=== PATIENT | female | born 1950 | race Caucasian/White ===

== ENCOUNTER 2019-01-25 19:27 | Inpatient (IN) | payer MEDICARE, OTHER, SELFPAY ==
[2019-01-25] VITALS (13 sets, daily range): BP systolic 125–162; BP diastolic 63–117; PULSE 82–117; RESP 16–18; TEMP 36.7–36.8; O2SAT 96–98; BMI 41.5; BMI 41.6; BMI 41.7
--- NOTE | 2019-01-25 19:42 | EKG12_ITS ---
Test Reason : Blood Pressure : / mmHG Vent. Rate : 119 BPM Atrial Rate : 111 BPM P-R Int : 000 ms QRS Dur : 094 ms QT Int : 298 ms P-R-T Axes : 000 029 039 degrees QTc Int : 419 ms Atrial fibrillation with rapid ventricular response Low voltage QRS Nonspecific ST and T wave abnormality Abnormal ECG Confirmed by ABHAY MARTINEZ ([id number]), assistant film editor RUTHY WEIR ([id number]) on 01/28/2019 1:12:33 PM Referred By: ELIZABETH Confirmed By:ABHAY MARTINEZ
--- NOTE | 2019-01-25 19:42 | RAD_ITS ---
STUDY: X-RAY CHEST REASON FOR EXAM: Female, 68 years old. Chest pain, A. fib TECHNIQUE: Single frontal view COMPARISON: July 27, 2016 FINDINGS: The lungs are clear and expanded. There is no demonstrated pleural abnormality. Mildly prominent cardiac shadow. Normal mediastinum and bing. Normal visualized pulmonary arteries. Normal visualized aortic arch and descending thoracic aorta. Degenerative changes of the thoracic spine. Degenerative changes of the shoulders. There is no demonstrated abnormality of the visualized soft tissue structures of the upper abdomen. RAD/Chest 1 View (Portable) IMPRESSION: Mildly prominent cardiac shadow. Electronically Signed: Jeff Raygoza DO at 20:28 EST Tel [phone], Service support ,
--- NOTE | 2019-01-25 19:42 | ED.RN ---
RN CALLED FOR EKG, PULLED OLD EKGS FOR
[2019-01-25] MEDS: Aspirin 81 MG TAB.CHEW 324 MG PO (19:57)
[2019-01-25] MEDS: dilTIAZem 25 MG/5 ML Vial 10 MG IV BOLUS (20:05)
[2019-01-25 20:12] LABS: Absolute Lymphocyte Count 2.53 X10^3/ul (0.83-4.51); Absolute Neutrophil Count 4.7 X10^3/uL (2.0-7.7); Basophil# 0.05 X10^3/uL; Basophil% 0.6 % (0-1); Eosinophil# 0.13 X10^3/uL; Eosinophils% 1.6 % (0-5); Hematocrit 40.2 % (37-47); Lymphocyte # 2.53 X10^3/ul (4.0); Lymphocyte % 32.1 % (19-41); Mean Corp Hgb Conc 32.3 g/gl (32-36); Mean Corpuscular Hgb 29.8 pg (27.0-32.0); Mean Corpuscular Volume 92.2 fL (81-99); Mean Platelet Vol. 10.1 fl (6.2-12.0); Monocyte# 0.46 X10^3/uL; Monocyte% 5.8 % (0-10); Neutrophil # 4.69 X10^3/uL (2.7-7.7); Neutrophil % 59.6 % (47-70); POSITIVE COUNT NO; POSITIVE DIFFERENTIAL NO; POSITIVE MORPHOLOGY NO; Platelet Count 272 K/mm3 (150-450); RBC Distribution Width CV 13.9 % (11.6-14.6); RBC Distribution Width SD 46.5 fl (35.1-43.9); Red Blood Count 4.36 M/mm3 (4.2-5.4); White Blood Count 7.9 K/mm3 (4.4-11.0)
[2019-01-25 20:23] LABS: Anion Gap 9 (5-15); BUN 18 mg/dL (7-18); BUN/Creat Ratio 25.8 RATIO (10-20); Calcium,Total 9.1 mg/dL (8.5-10.1); Chloride 105 mmol/L (98-107); EST Glomerular Filtration Rate 88 mL/min (>60); Est Glom Filt Rate - Afr Amer 107 mL/min (>60); Estimated Creatinine Clearance 51.63 ml/min; Glucose 133 mg/dL (74-106); Potassium 3.4 mmol/L (3.5-5.1); Sodium Level 140 mmol/L (136-145)
--- NOTE | 2019-01-25 20:40 | US_ITS ---
STUDY: VENOUS DOPPLER ULTRASOUND - RIGHT LOWER EXTREMITY REASON FOR EXAM: Female, 68 years old. Swelling TECHNIQUE: Ultrasound evaluation of the deep vein system to include montes-scale imaging and compression was performed. Montes-scale imaging and Doppler sonographic evaluation, including duplex spectral analysis and qualitative color flow sonography, was performed. COMPARISON: None. FINDINGS: Common Femoral Vein: Normal compression, spontaneity and augmentation. Normal color Doppler. Common Femoral Vein/Greater Saphenous Junction: Normal compression, spontaneity and augmentation. Normal color Doppler. Deep Femoral Vein: Normal compression, spontaneity and augmentation. Normal color Doppler. Femoral Proximal: Normal compression, spontaneity and augmentation. Normal color Doppler. Femoral Middle: Normal compression, spontaneity and augmentation. Normal color Doppler. Femoral Distal: Normal compression, spontaneity and augmentation. Normal color Doppler. Popliteal Vein: Normal compression, spontaneity and augmentation. Normal color Doppler. Posterior Tibial Vein: Normal compression, spontaneity and augmentation. Normal color Doppler. Peroneal Vein: Normal compression, spontaneity and augmentation. Normal color Doppler. US/Venous Duplex Imag/Limited/Uni IMPRESSION: Normal venous Doppler ultrasound of the lower extremity. Electronically Signed: Cholo Henderson MD at 21:19 EST , Service support ,
--- NOTE | 2019-01-25 20:43 | ED.DCSUM_ITS ---
- ER Visit Summary Date of Service: 01/25/19 Chief Complaint: Palpitations History of Present Illness: The patient is a 68 F presenting with palpitations. Patient states that this started earlier today. She has a history of A. fib. She has had ablation x2. Her last A. fib was approximately 2 years ago. She is on Xarelto. She is no longer on flecainide. She denies chest pain or shortness of breath. Physical Examination: Vitals are stable. Heart rate 106. Patient is afebrile. Alert no acute distress. HEENT exam is unremarkable. Neck is supple. Lungs are clear and equal bilaterally. Heart is irregularly irregular Abdomen is soft nontender nondistended. Extremities mild right ankle tenderness with normal distal pulse Skin is warm and dry. No focal neurologic deficit. Remainder of exam is unremarkable. Emergency Department Course and Treatment: CBC, chemistries unremarkable other than potassium 3.4, glucose 133. Troponin is negative. EKG A. fib rate of 119. Chest x-ray shows mildly prominent cardiac shadow. Right lower extremity ultrasound shows no DVT. Her heart rate has been in the 120s. She was given aspirin, Cardizem IV. Heart rate is now improved, high 90s. She declines ED cardioversion. Discussed with the hospitalist for observation. Disposition: Observation Impression: A. fib with RVR This note was generated with [employer] dictation software. It may contain incorrect words, spelling, and punctuation that were not noted in review of the chart prior to signing ED Disposition - Plan for ED Patient: Referrals: Junior Ashley III, MD [Primary Care Provider] -
--- NOTE | 2019-01-25 22:11 | HP.PCM_ITS ---
History of Present Illness Date of Admission: 01/25/19 Chief Complaint: palpitations The patient is a 68 year old F with a PMH of Afib s/p ablation x 2 and hypertension. She was admitted with a complaint of palpitations for the last few days. Patient had no associated dizziness or lightheadedness, chest pain, abdominal pain, diarrhea or vomiting. She used to be on flecainide, but says this was discontinued in 10/10. She usually follows up with dr Pina in [facility] main campus. Review of systems was otherwise negative. EKG in the ED showed Afib with HR in 120s. and labs were unremarkable. Initial troponin was negative. She is being admitted to be managed for Afib with RVr. She received cardizem bolus in the ED. She refuses to be cardioverted as she had a hematoma in her throat the last time she was cardioverted. [] Past Medical History Past Medical History (Chronic Problems): Chronic Problems (Last Reviewed 09/02/18 @ 11:46 by Akhil Oswald MD) History of cardiac radiofrequency ablation (Chronic) June 2017 @ [facility] and Jul 2018 Chronic atrial fibrillation (Chronic) Obstructive sleep apnea (Chronic) Hyperparathyroidism, unspecified (Chronic) Paroxysmal atrial fibrillation (Chronic) Medical History: Medical History (Last Reviewed 09/02/18 @ 11:46 by Akhil Oswald MD) Chronic atrial fibrillation (Chronic) I48.2 Obstructive sleep apnea (Chronic) G47.33 Hyperparathyroidism, unspecified (Chronic) E21.3 Body mass index (BMI) 35 or more Pain in left lower leg M79.662 Shortness of breath R06.02 Allergies Penicillins Allergy (Verified 09/02/18 11:25) Hives Sulfa (Sulfonamide Antibiotics) Allergy (Verified 09/02/18 11:25) Hives Home Medications: Ambulatory Orders Medication Instructions Recorded Allopurinol [Zyloprim] 300 mg PO BIDCM 07/27/16 Levothyroxine [Synthroid] 25 mcg PO DAILY 07/27/16 rivaroxaban 20 mg tablet 20 mg PO DAILY #90 tab 01/18/18 hydrochlorothiazide 25 mg tablet 25 mg PO QDAY tab 02/01/18 cholecalciferol (vitamin D3) 2,000 2,000 unit PO QDAY cap 02/02/18 unit capsule metoprolol tartrate 25 mg tablet 12.5 mg PO BID #180 tab 09/02/18 Surgical History: Surgical History (Last Reviewed 09/02/18 @ 11:46 by Akhil Oswald MD) History of cardiac radiofrequency ablation (Chronic) Z98.890 June 2017 @ [facility] and Jul 2018 Surgical History: hysterectomy, total hip arthroplasty, total knee arthroplasty, - - Cornea surgery Psychiatric History: No pertinent psych hx 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 Smoking Status: Never smoker - *Family History Maternal Family History: Family History (Last Reviewed 09/02/18 @ 11:46 by Akhil Oswald MD) Father CVA (cerebral vascular accident) Atrial fibrillation History Items: COPD Paternal Family History: Family History (Last Reviewed 09/02/18 @ 11:46 by Akhil Oswald MD) Father CVA (cerebral vascular accident) Atrial fibrillation History Items: - - Atrial fibrillation Review of Systems Constitutional: Denies: Chills, Fever, Malaise, Weakness, Weight Change, Fatigue Eyes: Denies: Blurred vision HEENT: Denies: Head Aches, Sinus Congestion, Sinus Drainage Cardiovascular: Reports: Palpitations. Denies: Chest Pain, Chest Tightness, Edema, Heaviness, Light Headedness, Orthopnea Respiratory: Denies: Cough, Shortness of Breath, Shortness of breath at rest, Sputum production Gastrointestinal: Denies: Abdominal Pain, Nausea, Vomiting Genitourinary: Denies: Dysuria Musculoskeletal: Denies: Joint Pain, Joint Tenderness Skin: Denies: Rash, Wounds Neurological: Denies: Numbness, Tingling, Focal weakness Psychiatric: Denies: Anxiety, Depression, Homicidal Ideations, Suicidal Ideations Hematologic/ Lymphatic: Denies: Easy Bruising, Easy Bleeding VTE Information - Inpt Only VTE Present on Admission: No VTE Pharm Prophylaxis ordered?: Yes - Physical Exam General: Alert, Oriented x3, Cooperative, No apparent distress HEENT: Atraumatic, PERRLA, EOMI, Normocephalic Oral: Moist Mucosa Neck: Supple, No JVD, Negative Carotid Bruits Lungs: Clear to auscultation, Normal air movement, No rhonchi, No wheeze, No rales Cardiovascular: Irregular Rate - Afib, Tachycardic Abdomen: Bowel Sounds Present, Soft, Non Tender, Non-Distended, No Hepato- splenomegaly, Passing Flatus Extremities: No clubbing, No cyanosis, No edema, Capillary Refill Less than 3 Seconds Skin: No rashes, No breakdown Musculoskeletal: No Tenderness to Palpation of Joints or Extremities Lymphatic: No Cervical, Supraclavicular, or Inguinal Adenopathy Neurological: Cranial nerves II-XII grossly intact, Neuro grossly intact, Motor Exam 5/5 strength throughout Psych/Mental Status: Normal Affect, Appropriate, Alert and oriented to time, place, person, mood and affect Vital Signs Temp Pulse Resp BP Pulse Ox 98.0 F 101 H 18 125/63 H 96 01/25/19 19:27 01/25/19 22:00 01/25/19 22:00 01/25/19 22:00 01/25/19 22:00 Oxygen Delivery Method Room Air Weight: 265 lb Body Mass Index (BMI) 41.5 Laboratory Tests Past 24 Hrs 01/25/19 01/25/19 20:00 20:00 WBC 7.9 RBC 4.36 Hgb 13.0 Hct 40.2 MCV 92.2 MCH 29.8 MCHC 32.3 RDW 13.9 RDW Differential 46.5 H Plt Count 272 MPV 10.1 Immature Gran % (Auto) 0.300 Neut % (Auto) 59.6 Lymph % (Auto) 32.1 [place] % (Auto) 5.8 Eos % (Auto) 1.6 Baso % (Auto) 0.6 Absolute Neuts (auto) 4.7 Absolute Lymphs (auto) 2.53 Total Counted Not Reportable Sodium 140 Potassium 3.4 L Chloride 105 Carbon Dioxide 26.0 Anion Gap 9 BUN 18 Creatinine 0.70 Estim Creat Clear Calc 51.63 Est GFR (MDRD) Af Amer 107 Est GFR (MDRD) Non-Af 88 BUN/Creatinine Ratio 25.8 H Glucose 133 H Calcium 9.1 Troponin I < 0.015 Diagnostic Data Chest X-Ray 01/25/19 19:42 IMPRESSION: Mildly prominent cardiac shadow. Electronically Signed: Jeff Raygoza DO at 20:28 EST Tel [phone], Service support , Venous Duplex 01/25/19 20:40 IMPRESSION: Normal venous Doppler ultrasound of the lower extremity. Electronically Signed: Cholo Henderson MD at 21:19 EST , Service support , Assessment/Plan All Active Problems (Last Reviewed 09/02/18 @ 11:46 by Akhil Oswald MD) Fever (Acute) 68-year-old female admitted with a complaint of palpitations. 1. A. fib with RVR * This was ablation x2. Has not had an attack of A. fib with RVR for the past 2 years. * Received Cardizem in ED. Does not require drip as heart rate is better controlled now. * On metoprolol 12.5 mg twice daily. Will give 25 mg twice daily and monitor heart rate. We will replace potassium is 3.4 and check magnesium to make sure it is above 2. * On xarelto * 2D echo. Cycle troponins. * 2. Hypertension: Fairly controlled. On metoprolol and hydrochlorothiazide. 3. Hypokalemia: Potassium is 3.4. Will replace and monitor. 4. Hypothyroidism: On Synthroid 25 mg daily. Will check TSH. Prophylaxis: On Xarelto. Code Visit OBSV E&M: 32311 Initial observation care L3
[2019-01-25] MEDS: Metoprolol Tartrate 5 MG/5 ML Vial IV ×3 (23:25→23:37)
[2019-01-25] MEDS: Metoprolol Tartrate 25 MG Tablet 12.5 MG PO (23:29)
[2019-01-26] VITALS (12 sets, daily range): BP systolic 109–140; BP diastolic 52–92; PULSE 84–124; RESP 14–18; TEMP 36.6–36.7; O2SAT 95–98
[2019-01-26 03:02] LABS: Anion Gap 8 (5-15); BUN 20 mg/dL (7-18); BUN/Creat Ratio 35.4 RATIO (10-20); Chloride 106 mmol/L (98-107); Creatinine, Serum 0.56 mg/dL (0.55-1.02); EST Glomerular Filtration Rate 113 mL/min (>60); Est Glom Filt Rate - Afr Amer 136 mL/min (>60); Estimated Creatinine Clearance 51.63 ml/min; Glucose 110 mg/dL (74-106); Magnesium 1.7 mg/dL (1.6-2.6); Potassium 3.5 mmol/L (3.5-5.1); Sodium Level 139 mmol/L (136-145)
[2019-01-26 03:18] LABS: Absolute Lymphocyte Count 2.77 X10^3/ul (0.83-4.51); Absolute Neutrophil Count 4.7 X10^3/uL (2.0-7.7); Basophil# 0.04 X10^3/uL; Basophil% 0.5 % (0-1); Eosinophil# 0.18 X10^3/uL; Eosinophils% 2.2 % (0-5); Hematocrit 37.8 % (37-47); Lymphocyte # 2.77 X10^3/ul (4.0); Lymphocyte % 33.5 % (19-41); Mean Corp Hgb Conc 31.7 g/gl (32-36); Mean Corpuscular Hgb 29.6 pg (27.0-32.0); Mean Corpuscular Volume 93.1 fL (81-99); Mean Platelet Vol. 10.6 fl (6.2-12.0); Monocyte# 0.58 X10^3/uL; Neutrophil # 4.67 X10^3/uL (2.7-7.7); Neutrophil % 56.4 % (47-70); Platelet Count 249 K/mm3 (150-450); RBC Distribution Width CV 13.8 % (11.6-14.6); RBC Distribution Width SD 45.5 fl (35.1-43.9); Red Blood Count 4.06 M/mm3 (4.2-5.4); White Blood Count 8.3 K/mm3 (4.4-11.0)
[2019-01-26 03:21] LABS: POSITIVE COUNT NO; POSITIVE DIFFERENTIAL NO; POSITIVE MORPHOLOGY NO
--- NOTE | 2019-01-26 05:55 | ECHOD_ITS ---
Reason For Study: Afib, Aflutter Procedure This was a 2D Doppler, Color Flow transthoracic echocardiogram. Exam performed portable in patient room. Left Ventricle Moderate concentric left ventricular hypertrophy. The estimated ejection fraction is 60 %. Unable to assess diastolic dysfunction due to arrhythmia. No regional wall motion abnormalities noted. Right Ventricle Normal size and thickness. Normal systolic function. Atria Normal left atrium. Normal right atrium. Normal atrial septum. Mitral Valve Mild diffuse mitral valve thickening. Moderate mitral annular calcification extending into the posterior leaflet. Tricuspid Valve Normal tricuspid valve. Trivial tricuspid valve insufficiency. Right ventricular systolic pressure estimated to be 36 mmHg. Aortic Valve Trisinus/trileaflet aortic valve. Mild diffuse aortic valve thickening. Mild focal aortic valve thickening. There is no aortic stenosis. Pulmonic Valve Normal pulmonic valve. Great Vessels Normal aortic root. Normal arch. Normal inferior vena cava. Inferior vena cava collapse with sniff. Pericardium/Pleural No pericardial effusion. MMode/2D Measurements & Calculations LVIDd: 3.6 cm IVSd: 1.7 cm Ao root diam: 3.6 cm LVIDs: 2.5 cm LVPWd: 1.6 cm RVDd: 3.6 cm FS: 28.7 % LAV(MOD-bp): 46.9 ml LVAd ap4: 23.6 cm2 SV(MOD-sp4): 35.7 ml LAV(MOD-bp) Indexed: 20.5 ml/m2 EDV(MOD-sp4): 62.5 ml LAV(MOD-sp2): 51.6 ml EDV(sp4-el): 63.5 ml LAV(MOD-sp4): 42.4 ml LVAs ap4: 13.9 cm2 ESV(MOD-sp4): 26.9 ml ESV(sp4-el): 25.9 ml EF(MOD-sp4): 57.1 % EF(sp4-el): 59.2 % SV(sp4-el): 37.6 ml LA A4 area: 16.5 cm2 LA dimension(2D): 3.8 cm RA A4 area: 16.5 cm2 Doppler Measurements & Calculations MV E max sandra: 103.5 cm/sec Ao V2 max: 138.2 cm/sec LV V1 max: 116.0 cm/sec Ao max P.9 mmHg LV V1 max P.5 mmHg Ao V2 mean: 104.0 cm/sec Ao mean P.9 mmHg Ao V2 VTI: 23.4 cm PA V2 max: 113.9 cm/sec TR max sandra: 227.7 cm/sec TR max P.7 mmHg Interpretation Summary Moderate concentric left ventricular hypertrophy. The estimated ejection fraction is 60 %. Unable to assess diastolic dysfunction due to arrhythmia. Trivial tricuspid valve insufficiency. Right ventricular systolic pressure estimated to be 36 mmHg. Compared to echo report dated 02/11/2016, LV function has remained the same. Pt appears to be in atrial fibrillation. RVSP has increased from 26 to 36 mm Hg. Ordering Physician: Margaret Napoles Referring Physician: Junior Ashley Performed By: Stephanie Arnold, ANEUDY, RVT
[2019-01-26] MEDS: Levothyroxine 25 MCG TABLET PO (06:34)
[2019-01-26 06:55] LABS: Thyroid Stim Hormone (TSH) 2.57 uIU/mL (0.358-3.74)
[2019-01-26] MEDS: Allopurinol 300 MG Tablet PO ×2 (08:34→16:54)
[2019-01-26] MEDS: hydroCHLOROthiazide 25 MG Tablet PO (08:35)
[2019-01-26] MEDS: Metoprolol Tartrate 25 MG Tablet PO ×2 (08:35→21:01)
--- NOTE | 2019-01-26 08:47 | NURSING ---
pt walked halls with . HR elevated but pt denies chest discomfort and denies SOB.
--- NOTE | 2019-01-26 13:33 | PCM.PN.HOSP ---
Subjective: Denies currently any palpitations, shortness of breath or chest pain. She does feel better Vitals/I&O's: Vital Signs Temp Pulse Resp BP Pulse Ox 97.9 F 101 H 14 140/79 H 98 01/26/19 08:33 01/26/19 11:00 01/26/19 08:33 01/26/19 08:33 01/26/19 08:33 Oxygen Delivery Method Room Air Weight: 266 lb 1.567 oz Body Mass Index (BMI) 41.6 Intake and Output for Last 24 Hours 01/24/19 01/25/19 01/26/19 23:59 23:59 23:59 Intake Total 960 / 960 Balance 960 / 960 General: Alert, Oriented x3, Cooperative, No apparent distress HEENT: Atraumatic, PERRLA, EOMI, Normocephalic Oral: Moist Mucosa Neck: Supple, No JVD, Trachea Midline Lungs: Clear to auscultation, Normal air movement, No rhonchi, No wheeze, No rales Cardiovascular: Regular rate, Normal S1, Normal S2, No murmurs, - - Irregular rhythm Abdomen: Soft, Non Tender, Non-Distended, No Hepato-splenomegaly Extremities: No edema, Capillary Refill Less than 3 Seconds, - - Right Achilles tendinopathy with swelling and a little bit of pain Skin: No rashes, No breakdown Neurological: Neuro grossly intact, Sensory exam intact to light touch and pain Psych/Mental Status: Normal Affect, Appropriate Laboratory Results 01/25/19 20:00: WBC 7.9, RBC 4.36, Hgb 13.0, Hct 40.2, MCV 92.2, MCH 29.8, MCHC 32.3, RDW 13.9, RDW Differential 46.5 H, Plt Count 272, MPV 10.1, Immature Gran % (Auto) 0.300, Neut % (Auto) 59.6, Lymph % (Auto) 32.1, [place] % (Auto) 5.8, Eos % (Auto) 1.6, Baso % (Auto) 0.6, Absolute Neuts (auto) 4.7, Absolute Lymphs (auto) 2.53, Total Counted Not Reportable 01/25/19 20:00: Sodium 140, Potassium 3.4 L, Chloride 105, Carbon Dioxide 26.0, Anion Gap 9, BUN 18, Creatinine 0.70, Estim Creat Clear Calc 51.63, Est GFR (MDRD) Af Amer 107, Est GFR (MDRD) Non-Af 88, BUN/Creatinine Ratio 25.8 H, Glucose 133 H, Calcium 9.1, Troponin I < 0.015 01/25/19 23:26: Troponin I < 0.015 01/26/19 02:33: Magnesium 1.7, Troponin I < 0.015 01/26/19 02:33: WBC 8.3, RBC 4.06 L, Hgb 12.0, Hct 37.8, MCV 93.1, MCH 29.6, MCHC 31.7 L, RDW 13.8, RDW Differential 45.5 H, Plt Count 249, MPV 10.6, Immature Gran % (Auto) 0.400, Neut % (Auto) 56.4, Lymph % (Auto) 33.5, [place] % (Auto) 7.0, Eos % (Auto) 2.2, Baso % (Auto) 0.5, Absolute Neuts (auto) 4.7, Absolute Lymphs (auto) 2.77, Total Counted Not Reportable 01/26/19 02:33: Sodium 139, Potassium 3.5, Chloride 106, Carbon Dioxide 25.0, Anion Gap 8, BUN 20 H, Creatinine 0.56, Estim Creat Clear Calc 51.63, Est GFR (MDRD) Af Amer 136, Est GFR (MDRD) Non-Af 113, BUN/Creatinine Ratio 35.4 H, Glucose 110 H, Calcium 9.0 01/26/19 02:33: TSH 2.57 Current Medications Acetaminophen (Tylenol) 650 mg PO Q4H PRN PRN PRN Reason: PAIN Allopurinol (Zyloprim) 300 mg PO BIDCM [facility] Last Admin: 01/26/19 08:34 Dose: 300 mg Cholecalciferol (Vitamin D) 2,000 unit PO DAILY [facility] Last Admin: 01/26/19 08:35 Dose: 2,000 unit Hydrochlorothiazide (Hctz) 25 mg PO DAILY [facility] Last Admin: 01/26/19 08:35 Dose: 25 mg Levothyroxine Sodium (Synthroid) 25 mcg PO DAILY@0600 [facility] Last Admin: 01/26/19 06:34 Dose: 25 mcg Magnesium Hydroxide (Milk Of Magnesia) 30 ml PO DAILY PRN PRN PRN Reason: Constipation Metoprolol Tartrate (Lopressor (Beta Aries)) 25 mg PO BID [facility] Last Admin: 01/26/19 08:35 Dose: 25 mg Rivaroxaban (Xarelto) 20 mg PO DAILY@1700 [facility] Sodium Chloride () 5 - 15 ml IV UD PRN PRN Reason: SALINE FLUSH Medical Necessity - Tobacco Use Smoking Status: Never smoker Assessment/Plan All Active Problems (Last Reviewed 09/02/18 @ 11:46 by Akhil Oswald MD) Fever (Acute) 1. A. fib with RVR/HTN -Had 2 prior ablations in [place], and was recently taken off of her flecainide in September. -We will increase her metoprolol from 12-1/2 twice daily to 25 twice daily which seems to be rate controlling her decently well -Is asymptomatic while her rate is controlled even though she is in A. fib -We will monitor overnight, echo is pending -Continue with her blood pressure medications as well as her Xarelto 2. Hypothyroidism -Stable, TSH is 2.57 -Continue with Synthroid DVT: Xarelto Code Visit Inpatient E&M: 65607 Subs Hosp L2
--- NOTE | 2019-01-26 13:37 | PN_ITS ---
Subjective: Denies currently any palpitations, shortness of breath or chest pain. She does feel better Vitals/I&O's: Vital Signs Temp Pulse Resp BP Pulse Ox 97.9 F 101 H 14 140/79 H 98 01/26/19 08:33 01/26/19 11:00 01/26/19 08:33 01/26/19 08:33 01/26/19 08:33 Oxygen Delivery Method Room Air Weight: 266 lb 1.567 oz Body Mass Index (BMI) 41.6 Intake and Output for Last 24 Hours 01/24/19 01/25/19 01/26/19 23:59 23:59 23:59 Intake Total 960 / 960 Balance 960 / 960 General: Alert, Oriented x3, Cooperative, No apparent distress HEENT: Atraumatic, PERRLA, EOMI, Normocephalic Oral: Moist Mucosa Neck: Supple, No JVD, Trachea Midline Lungs: Clear to auscultation, Normal air movement, No rhonchi, No wheeze, No rales Cardiovascular: Regular rate, Normal S1, Normal S2, No murmurs, - - Irregular rhythm Abdomen: Soft, Non Tender, Non-Distended, No Hepato-splenomegaly Extremities: No edema, Capillary Refill Less than 3 Seconds, - - Right Achilles tendinopathy with swelling and a little bit of pain Skin: No rashes, No breakdown Neurological: Neuro grossly intact, Sensory exam intact to light touch and pain Psych/Mental Status: Normal Affect, Appropriate Laboratory Results 01/25/19 20:00: WBC 7.9, RBC 4.36, Hgb 13.0, Hct 40.2, MCV 92.2, MCH 29.8, MCHC 32.3, RDW 13.9, RDW Differential 46.5 H, Plt Count 272, MPV 10.1, Immature Gran % (Auto) 0.300, Neut % (Auto) 59.6, Lymph % (Auto) 32.1, [place] % (Auto) 5.8, Eos % (Auto) 1.6, Baso % (Auto) 0.6, Absolute Neuts (auto) 4.7, Absolute Lymphs (auto) 2.53, Total Counted Not Reportable 01/25/19 20:00: Sodium 140, Potassium 3.4 L, Chloride 105, Carbon Dioxide 26.0, Anion Gap 9, BUN 18, Creatinine 0.70, Estim Creat Clear Calc 51.63, Est GFR (MDRD) Af Amer 107, Est GFR (MDRD) Non-Af 88, BUN/Creatinine Ratio 25.8 H, Glucose 133 H, Calcium 9.1, Troponin I < 0.015 01/25/19 23:26: Troponin I < 0.015 01/26/19 02:33: Magnesium 1.7, Troponin I < 0.015 01/26/19 02:33: WBC 8.3, RBC 4.06 L, Hgb 12.0, Hct 37.8, MCV 93.1, MCH 29.6, M CHC 31.7 L, RDW 13.8, RDW Differential 45.5 H, Plt Count 249, MPV 10.6, Immature Gran % (Auto) 0.400, Neut % (Auto) 56.4, Lymph % (Auto) 33.5, [place] % (Auto) 7.0, Eos % (Auto) 2.2, Baso % (Auto) 0.5, Absolute Neuts (auto) 4.7, Absolute Lymphs (auto) 2.77, Total Counted Not Reportable 01/26/19 02:33: Sodium 139, Potassium 3.5, Chloride 106, Carbon Dioxide 25.0, Anion Gap 8, BUN 20 H, Creatinine 0.56, Estim Creat Clear Calc 51.63, Est GFR (MDRD) Af Amer 136, Est GFR (MDRD) Non-Af 113, BUN/Creatinine Ratio 35.4 H, Glucose 110 H, Calcium 9.0 01/26/19 02:33: TSH 2.57 Current Medications Acetaminophen (Tylenol) 650 mg PO Q4H PRN PRN PRN Reason: PAIN Allopurinol (Zyloprim) 300 mg PO BIDCM [facility] Last Admin: 01/26/19 08:34 Dose: 300 mg Cholecalciferol (Vitamin D) 2,000 unit PO DAILY [facility] Last Admin: 01/26/19 08:35 Dose: 2,000 unit Hydrochlorothiazide (Hctz) 25 mg PO DAILY [facility] Last Admin: 01/26/19 08:35 Dose: 25 mg Levothyroxine Sodium (Synthroid) 25 mcg PO DAILY@0600 [facility] Last Admin: 01/26/19 06:34 Dose: 25 mcg Magnesium Hydroxide (Milk Of Magnesia) 30 ml PO DAILY PRN PRN PRN Reason: Constipation Metoprolol Tartrate (Lopressor (Beta Aries)) 25 mg PO BID [facility] Last Admin: 01/26/19 08:35 Dose: 25 mg Rivaroxaban (Xarelto) 20 mg PO DAILY@1700 [facility] Sodium Chloride () 5 - 15 ml IV UD PRN PRN Reason: SALINE FLUSH Medical Necessity - Tobacco Use Smoking Status: Never smoker Assessment/Plan All Active Problems (Last Reviewed 09/02/18 @ 11:46 by Akhil Oswald MD) Fever (Acute) 1. A. fib with RVR/HTN -Had 2 prior ablations in [place], and was recently taken off of her flecainide in September. -We will increase her metoprolol from 12-1/2 twice daily to 25 twice daily which seems to be rate controlling her decently well -Is asymptomatic while her rate is controlled even though she is in A. fib -We will monitor overnight, echo is pending -Continue with her blood pressure medications as well as her Xarelto 2. Hypothyroidism -Stable, TSH is 2.57 -Continue with Synthroid DVT: Xarelto Code Visit Inpatient E&M: 52307 Subs Hosp L2
[2019-01-26] MEDS: Rivaroxaban 20 MG Tablet PO (16:54)
[2019-01-26] MEDS: Acetaminophen 325 MG Tablet 650 MG PO (19:37)
[2019-01-27] VITALS (13 sets, daily range): BP systolic 113–136; BP diastolic 64–94; PULSE 61–120; RESP 16–18; TEMP 36.4–37.1; O2SAT 95–99
--- NOTE | 2019-01-27 01:30 | NURSING ---
Received report from Josephine ISRAEL at this time. This nurse taking over care of pt. at this time. Pt. resting in bed, no distress noted.
[2019-01-27] MEDS: Levothyroxine 25 MCG TABLET PO (04:36)
[2019-01-27] MEDS: Allopurinol 300 MG Tablet PO ×2 (07:51→17:43)
[2019-01-27] MEDS: hydroCHLOROthiazide 25 MG Tablet PO (07:51)
[2019-01-27] MEDS: Metoprolol Tartrate 25 MG Tablet PO ×3 (07:51→22:09)
--- NOTE | 2019-01-27 11:00 | CASEMGMT ---
LINDY QUIJANO assessment: Face to Face with patient for initial transition planning/care coordination assessment. LINDY QUIJANO introduced self and role at [facility], pt voices understanding and consents to assessment at this time. Pt is sitting up in chair in no distress at this time. Pt is A/Ox4 at this time and answers all questions appropriately at this time. Care providers, pharmacy, and demographics verified at this time. PCP: Dion III Specialists: Darek, cardio; Silvana cardio at [facility]; Vielka pulm; Dion, surgeon; Ry ortho at [facility] Preferred [facility]acy: [facility] Insurance: MCR A/B, MMO Prescription Benefit: Silver[employer] Living Will/HPOA: Pt states has a LW/HPOA and is aware that they are not currently on file at [facility] at this time. Pt states that , Sherman aCmpuzano, is HPOA. LNOK: Sherman Campuzano, ; China Campuzano, daughter Living Arrangements: Pt states lives with in 2 story home and states no concerns at home at this time. Pt states is normally independent with ADL's. Transportation: Pt states drives self and states no transportation concerns at this time. DME/HHC: Pt states has the following DME: cane, walker, raised toilet seat, and cpap thru [employer]. Pt states only uses the cane and cpap regularly. Pt states has had HHC in the past but states no hx of SNF. Pt states no concerns with going home at time of discharge. 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 Pt states does not smoke but does drink rarely. Pt states no further concerns/needs at this time. CM to follow for any further discharge planning/needs. Advised pt to ask for CM if any further questions/concerns/needs arise, voices understanding. Plan: [place] LINDY QUIJANO
--- NOTE | 2019-01-27 11:22 | PCM.PN.HOSP ---
Subjective: Doing well, is asymptomatic even though her heart rate has been above 100 for the duration of the evening and 130s this morning while bathing. Vitals/I&O's: Vital Signs Temp Pulse Resp BP Pulse Ox 97.6 F L 120 H 16 130/87 H 95 01/27/19 07:51 01/27/19 08:00 01/27/19 07:51 01/27/19 07:51 01/27/19 07:51 Oxygen Delivery Method Room Air Weight: 266 lb 1.567 oz Body Mass Index (BMI) 41.6 Intake and Output for Last 24 Hours 01/25/19 01/26/19 01/27/19 23:59 23:59 23:59 Intake Total 1460 / 1460 240 / 240 Balance 1460 / 1460 240 / 240 General: Alert, Oriented x3, Cooperative, No apparent distress HEENT: Atraumatic, PERRLA, EOMI, Normocephalic Oral: Moist Mucosa Neck: Supple, No JVD, Trachea Midline Lungs: Clear to auscultation, Normal air movement, No rhonchi, No wheeze, No rales Cardiovascular: Tachycardic, Normal S1, Normal S2, No murmurs, - - Irregular rhythm Abdomen: Soft, Non Tender, Non-Distended, No Hepato-splenomegaly Extremities: No edema, Capillary Refill Less than 3 Seconds, - - Right Achilles tendinopathy with swelling and a little bit of pain Skin: No rashes, No breakdown Neurological: Neuro grossly intact, Sensory exam intact to light touch and pain Psych/Mental Status: Normal Affect, Appropriate Current Medications Acetaminophen (Tylenol) 650 mg PO Q4H PRN PRN PRN Reason: PAIN Last Admin: 01/26/19 19:37 Dose: 650 mg Allopurinol (Zyloprim) 300 mg PO BIDCM [facility] Last Admin: 01/27/19 07:51 Dose: 300 mg Cholecalciferol (Vitamin D) 2,000 unit PO DAILY [facility] Last Admin: 01/27/19 07:52 Dose: 2,000 unit Hydrochlorothiazide (Hctz) 25 mg PO DAILY [facility] Last Admin: 01/27/19 07:51 Dose: 25 mg Levothyroxine Sodium (Synthroid) 25 mcg PO DAILY@0600 [facility] Last Admin: 01/27/19 04:36 Dose: 25 mcg Magnesium Hydroxide (Milk Of Magnesia) 30 ml PO DAILY PRN PRN PRN Reason: Constipation Metoprolol Tartrate (Lopressor (Beta Aries)) 25 mg PO BID [facility] Last Admin: 01/27/19 07:51 Dose: 25 mg Rivaroxaban (Xarelto) 20 mg PO DAILY@1700 [facility] Last Admin: 01/26/19 16:54 Dose: 20 mg Sodium Chloride () 5 - 15 ml IV UD PRN PRN Reason: SALINE FLUSH Medical Necessity - Tobacco Use Smoking Status: Never smoker Assessment/Plan All Active Problems (Last Reviewed 09/02/18 @ 11:46 by Akhil Oswald MD) Fever (Acute) 1. A. fib with RVR/HTN -Had 2 prior ablations in [place], and was recently taken off of her flecainide in September. -Received 50 mg of metoprolol this morning however I discussed the case with her coin machine service repairer at [place] who would prefer if we cardioverted her -Been continued on her Xarelto and will consult cardiology for possible cardioversion either today or tomorrow depending on availability -She has not had a headache with the 50 mill grams of metoprolol can continue that until she is cardioverted, last time she had a cardioversion she did become bradycardic down to the 40s and therefore if that occurs again will plan to discharge her on 12.5 mg again. 2. Hypothyroidism -Stable, TSH is 2.57 -Continue with Synthroid 3. Right Achilles tendinopathy -Rest, ice -This seems to have happened from walking in the sand about a week or 2 ago. DVT: Xarelto Code Visit Inpatient E&M: 73644 Subs Hosp L2
--- NOTE | 2019-01-27 13:22 | EKG12_ITS ---
Test Reason : AFIB Blood Pressure : / mmHG Vent. Rate : 103 BPM Atrial Rate : 254 BPM P-R Int : 000 ms QRS Dur : 092 ms QT Int : 348 ms P-R-T Axes : 000 017 030 degrees QTc Int : 455 ms Atrial flutter with variable A-V block Low voltage QRS Nonspecific ST and T wave abnormality Abnormal ECG Confirmed by JAMEE ECHEVARRIA, AGGIE ([id number]), desk editor RUTHY WEIR ([id number]) on 01/28/2019 1:48:04 PM Referred By: OSMIN Confirmed By:AGGIE MANCUSO MD
[2019-01-27] MEDS: Flecainide 100 MG Tablet PO ×2 (13:31→22:09)
[2019-01-27] MEDS: Acetaminophen 325 MG Tablet 650 MG PO ×2 (13:35→22:09)
--- NOTE | 2019-01-27 16:36 | PCM.CONS.C ---
Reason for Consult Date of Consultation: 01/27/19 Reason for Consultation: Irregular heartbeat History of Present Illness: KATELYNN CALABRESE, is a 68 F who presented to the emergency room with palpitations. She is a lady with a history of hypertension, paroxysmal atrial fibrillation who underwent radio frequency ablation in June 2017. She started having recurrences in 2017 and we discussed at her last follow-up in January whether she should have a repeat. She successfully underwent a repeat ablation in July 2018. She says that since then she appears to have been maintaining sinus rhythm with only an occasional palpitation. She has been on the flecainide and discontinued this in September. She had had no recurrences but she has been compliant with anticoagulation. She has had no dizziness or diaphoresis near syncope or syncope but she says that a few days ago she started having some palpitations and presented to the emergency room. She did not want to be cardioverted because she had an unusual experience after her last cardioversion. Past Medical History Allergies/Adverse Reactions: Allergies etodolac Allergy (Verified 01/25/19 23:44) Itching Penicillins Allergy (Verified 09/02/18 11:25) Hives Sulfa (Sulfonamide Antibiotics) Allergy (Verified 09/02/18 11:25) Hives Home Medications: Ambulatory Orders Medication Instructions Recorded Allopurinol [Zyloprim] 300 mg PO BIDCM 07/27/16 Levothyroxine [Synthroid] 25 mcg PO DAILY 07/27/16 rivaroxaban 20 mg tablet 20 mg PO DAILY #90 tab 01/18/18 hydrochlorothiazide 25 mg tablet 25 mg PO QDAY tab 02/01/18 cholecalciferol (vitamin D3) 2,000 2,000 unit PO QDAY cap 02/02/18 unit capsule metoprolol tartrate 25 mg tablet 12.5 mg PO BID #180 tab 09/02/18 Past Medical History (Chronic Problems): Chronic Problems (Last Reviewed 09/02/18 @ 11:46 by Akhil Oswald MD) History of cardiac radiofrequency ablation (Chronic) June 2017 @ [facility] and Jul 2018 Chronic atrial fibrillation (Chronic) Obstructive sleep apnea (Chronic) Hyperparathyroidism, unspecified (Chronic) Paroxysmal atrial fibrillation (Chronic) Surgical History: hysterectomy, total hip arthroplasty, total knee arthroplasty, - - Cornea surgery Psychiatric History: No pertinent psych hx JIG BOX OPERATOR History: No pertinent JIG BOX OPERATOR history - *Family History Maternal Family History: Family History (Last Reviewed 09/02/18 @ 11:46 by Akhil Oswald MD) Father CVA (cerebral vascular accident) Atrial fibrillation History Items: COPD Paternal Family History: Family History (Last Reviewed 09/02/18 @ 11:46 by Akhil Oswald MD) Father CVA (cerebral vascular accident) Atrial fibrillation History Items: - - Atrial fibrillation Smoking Status: Never smoker Alcohol: None Drugs: None Review of Systems - Review of Systems General: Denies: Fever, Night Sweats, Fatigue HEENT: Denies: Vision Change Cardiovascular: Reports: Palpitations. Denies: Chest Discomfort, Shortness of Breath, Orthopnea, PND, Peripheral Edema, Lightheadedness, Dizziness, Near Syncope, Syncope Respiratory: Denies: Cough, Sputum Production, Hemoptysis Gastrointestinal: Denies: Hematemesis, Hematochezia, Melena Genitourinary: Denies: Dysuria, Hematuria Muscoloskeletal: Reports: Myalgias Skin: Denies: Rash Neurological: Denies: Dizziness Psychiatric: Denies: Anxiety Endocrine: Denies: Unexplained Weight Loss Hematologic/ Lymphatic: Denies: Anemia Subjectve: Pleasant lady no apparent distress Objective: Vital Signs Temp Pulse Resp BP Pulse Ox 98.3 F 86 16 136/94 H 96 01/27/19 13:21 01/27/19 13:21 01/27/19 13:21 01/27/19 13:21 01/27/19 13:21 Oxygen Delivery Method Room Air Weight: 266 lb 1.567 oz Body Mass Index (BMI) 41.6 Intake and Output for Last 24 Hours 01/25/19 01/26/19 01/27/19 23:59 23:59 23:59 Intake Total 1460 / 1460 1040 / 1040 Balance 1460 / 1460 1040 / 1040 General: Awake, Alert, Oriented x 3 HEENT: PERRL, EOMI, Sclera Non Icteric Neck: Supple, Good ROM, No Lymph Node Enlargement Lungs: Clear to auscultation Cardiovascular: Irregular Rhythm, Normal S1, Normal S2, No Murmurs, No Rubs, No Gallops Vascular: No Carotid Bruits, Normal Femoral Pulses, Normal Radial Pulses, Normal Dorsalis Pedal Pulse, Normal Posterior Tibial Pulses Abdomen: Bowel Sounds Present, Soft, Non Tender, No HSM, No Organomegaly Extremities: No Cyanosis, No Clubbing, No edema Musculoskeletal: No Erythema Skin: No Rashes Lymphatic: No Lymph Node Enlargement Neurological: No Focal Motor or Sensory Deficit Psych/Mental Status: Appropriate Rhythm: EKG: ECHO: Stress Test: Cardiac Cath: PCI: CT Surgery: Holter monitor: EPS: PPM: CXR: Chest CT Scan: Assessment/Plan 1. Paroxysmal atrial fibrillation Patient has a history of previous atrial fibrillation status post ablation. She did discontinue her flecainide approximately 3 months ago and unfortunately has reverted back to atrial fibrillation. She has been anticoagulated. My recommendation at this time after discussing would be to proceed with DC cardioversion after putting her back on the flecainide. This will be arranged for a.m. Her ejection fraction appears to be normal at 60% but her right ventricular systolic pressure is mildly elevated 2. Hypertension Blood pressure appears to be under good control on the metoprolol and the hydrochlorothiazide which will be continued. Thank you for allowing me to participate in the care of your patient. Please don't hesitate to call if any issues arise
--- NOTE | 2019-01-27 16:40 | CON.PCM_ITS ---
Reason for Consult Date of Consultation: 01/27/19 Reason for Consultation: Irregular heartbeat History of Present Illness: KATELYNN CALABRESE, is a 68 F who presented to the emergency room with palpitations. She is a lady with a history of hypertension, paroxysmal atrial fibrillation who underwent radio frequency ablation in June 2017. She started having recurrences in 2017 and we discussed at her last follow-up in January whether she should have a repeat. She successfully underwent a repeat ablation in July 2018. She says that since then she appears to have been maintaining sinus rhythm with only an occasional palpitation. She has been on the flecainide and discontinued this in September. She had had no recurrences but she has been compliant with anticoagulation. She has had no dizziness or diaphoresis near syncope or syncope but she says that a few days ago she started having some palpitations and presented to the emergency room. She did not want to be cardioverted because she had an unusual experience after her last cardioversion. Past Medical History Allergies/Adverse Reactions: Allergies etodolac Allergy (Verified 01/25/19 23:44) Itching Penicillins Allergy (Verified 09/02/18 11:25) Hives Sulfa (Sulfonamide Antibiotics) Allergy (Verified 09/02/18 11:25) Hives Home Medications: Ambulatory Orders Medication Instructions Recorded Allopurinol [Zyloprim] 300 mg PO BIDCM 07/27/16 Levothyroxine [Synthroid] 25 mcg PO DAILY 07/27/16 rivaroxaban 20 mg tablet 20 mg PO DAILY #90 tab 01/18/18 hydrochlorothiazide 25 mg tablet 25 mg PO QDAY tab 02/01/18 cholecalciferol (vitamin D3) 2,000 2,000 unit PO QDAY cap 02/02/18 unit capsule metoprolol tartrate 25 mg tablet 12.5 mg PO BID #180 tab 09/02/18 Past Medical History (Chronic Problems): Chronic Problems (Last Reviewed 09/02/18 @ 11:46 by Akhil Oswald MD) History of cardiac radiofrequency ablation (Chronic) June 2017 @ [facility] and Jul 2018 Chronic atrial fibrillation (Chronic) Obstructive sleep apnea (Chronic) Hyperparathyroidism, unspecified (Chronic) Paroxysmal atrial fibrillation (Chronic) Surgical History: hysterectomy, total hip arthroplasty, total knee arthroplasty, - - Cornea surgery Psychiatric History: No pertinent psych hx 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 History: No pertinent 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 history - *Family History Maternal Family History: Family History (Last Reviewed 09/02/18 @ 11:46 by Akhil Oswald MD) Father CVA (cerebral vascular accident) Atrial fibrillation History Items: COPD Paternal Family History: Family History (Last Reviewed 09/02/18 @ 11:46 by Akhil Oswald MD) Father CVA (cerebral vascular accident) Atrial fibrillation History Items: - - Atrial fibrillation Smoking Status: Never smoker Alcohol: None Drugs: None Review of Systems - Review of Systems General: Denies: Fever, Night Sweats, Fatigue HEENT: Denies: Vision Change Cardiovascular: Reports: Palpitations. Denies: Chest Discomfort, Shortness of Breath, Orthopnea, PND, Peripheral Edema, Lightheadedness, Dizziness, Near Syncope, Syncope Respiratory: Denies: Cough, Sputum Production, Hemoptysis Gastrointestinal: Denies: Hematemesis, Hematochezia, Melena Genitourinary: Denies: Dysuria, Hematuria Muscoloskeletal: Reports: Myalgias Skin: Denies: Rash Neurological: Denies: Dizziness Psychiatric: Denies: Anxiety Endocrine: Denies: Unexplained Weight Loss Hematologic/ Lymphatic: Denies: Anemia Subjectve: Pleasant lady no apparent distress Objective: Vital Signs Temp Pulse Resp BP Pulse Ox 98.3 F 86 16 136/94 H 96 01/27/19 13:21 01/27/19 13:21 01/27/19 13:21 01/27/19 13:21 01/27/19 13:21 Oxygen Delivery Method Room Air Weight: 266 lb 1.567 oz Body Mass Index (BMI) 41.6 Intake and Output for Last 24 Hours 01/25/19 01/26/19 01/27/19 23:59 23:59 23:59 Intake Total 1460 / 1460 1040 / 1040 Balance 1460 / 1460 1040 / 1040 General: Awake, Alert, Oriented x 3 HEENT: PERRL, EOMI, Sclera Non Icteric Neck: Supple, Good ROM, No Lymph Node Enlargement Lungs: Clear to auscultation Cardiovascular: Irregular Rhythm, Normal S1, Normal S2, No Murmurs, No Rubs, No Gallops Vascular: No Carotid Bruits, Normal Femoral Pulses, Normal Radial Pulses, Normal Dorsalis Pedal Pulse, Normal Posterior Tibial Pulses Abdomen: Bowel Sounds Present, Soft, Non Tender, No HSM, No Organomegaly Extremities: No Cyanosis, No Clubbing, No edema Musculoskeletal: No Erythema Skin: No Rashes Lymphatic: No Lymph Node Enlargement Neurological: No Focal Motor or Sensory Deficit Psych/Mental Status: Appropriate Rhythm: EKG: ECHO: Stress Test: Cardiac Cath: PCI: CT Surgery: Holter monitor: EPS: PPM: CXR: Chest CT Scan: Assessment/Plan 1. Paroxysmal atrial fibrillation * Patient has a history of previous atrial fibrillation status post ablation. She did discontinue her flecainide approximately 3 months ago and unfortunately has reverted back to atrial fibrillation. She has been anticoagulated. My recommendation at this time after discussing would be to proceed with DC cardioversion after putting her back on the flecainide. * This will be arranged for a.m. * Her ejection fraction appears to be normal at 60% but her right ventricular systolic pressure is mildly elevated * 2. Hypertension * Blood pressure appears to be under good control on the metoprolol and the hydrochlorothiazide which will be continued. * * Thank you for allowing me to participate in the care of your patient. Please don't hesitate to call if any issues arise
[2019-01-27] MEDS: Rivaroxaban 20 MG Tablet PO (17:43)
[2019-01-28] VITALS (11 sets, daily range): BP systolic 108–118; BP diastolic 56–76; PULSE 63–115; RESP 12–18; TEMP 36.6; O2SAT 96–100; BMI 41.6
[2019-01-28] MEDS: Levothyroxine 25 MCG TABLET PO (05:50)
--- NOTE | 2019-01-28 05:55 | EKG12_ITS ---
Test Reason : AM Blood Pressure : / mmHG Vent. Rate : 102 BPM Atrial Rate : 256 BPM P-R Int : 000 ms QRS Dur : 098 ms QT Int : 338 ms P-R-T Axes : 000 030 -63 degrees QTc Int : 440 ms Atrial flutter with variable A-V block Low voltage QRS Abnormal QRS-T angle, consider primary T wave abnormality Abnormal ECG When compared with ECG of 27-JAN-2019 15:55, MANUAL COMPARISON REQUIRED, DATA IS UNCONFIRMED Confirmed by JAMEE ECHEVARRIA, AGGIE ([id number]), digital editor RUTHY WEIR ([id number]) on 02/04/2019 8:58:13 AM Referred By: Confirmed By:AGGIE MANCUSO MD
[2019-01-28] MEDS: 0.9% NaCl Peripheral Flush Adult/Peds IV (06:43)
--- NOTE | 2019-01-28 08:48 | EKG12_ITS ---
Test Reason : AFIB RVR Blood Pressure : / mmHG Vent. Rate : 061 BPM Atrial Rate : 061 BPM P-R Int : 160 ms QRS Dur : 096 ms QT Int : 436 ms P-R-T Axes : 072 002 026 degrees QTc Int : 438 ms Normal sinus rhythm Low voltage QRS Nonspecific ST abnormality Abnormal ECG When compared with ECG of 28-JAN-2019 05:23, MANUAL COMPARISON REQUIRED, DATA IS UNCONFIRMED Confirmed by JAMEE ECHEVARRIA, AGGIE ([id number]), editor farm journal RUTHY WEIR ([id number]) on 02/04/2019 8:56:45 AM Referred By: JAMEE Confirmed By:AGGIE MANCUSO MD
--- NOTE | 2019-01-28 08:48 | PCM.OP.PRO ---
Procedure Report Date of Procedure: 01/28/19 DC cardioversion. Patient with history of paroxysmal atrial fibrillation who presented with symptomatic atrial fibrillation. After informed consent was obtained the patient was seen by Dr. Smith of the critical care division. Anterior-posterior pads were applied. The patient was administered 80 mg of intravenous propofol. The patient was confirmed to have been on Xarelto for at least 4 weeks. 200 J of synchronized DC cardioversion energy were applied with prompt reversal to sinus rhythm. Conclusion: Successful DC cardioversion from sinus rhythm. Follow-up in primary power plant inspector office.
--- NOTE | 2019-01-28 08:49 | DCINST_ITS ---
You will use the following diet at home:: Cardiac Your food should be the consistency of: Regular Your liquids should be the consistency of: Regular/Thin Discharge Activity: Return to Normal Activity, No Restrictions Call your doctor if you observe: Fever of 101 or Higher, Shortness of breath, Dizziness, Fainting spells, Swelling in the ankles, Chest pain, Increased palpitations (irregular heartbeat) Allergies/Adverse Reactions: Allergies etodolac Allergy (Verified 01/25/19 23:44) Itching Penicillins Allergy (Verified 09/02/18 11:25) Hives Sulfa (Sulfonamide Antibiotics) Allergy (Verified 09/02/18 11:25) Hives Medications to take at Discharge Allopurinol [Zyloprim] 300 mg PO BIDCM 07/27/16 Levothyroxine [Synthroid] 25 mcg PO DAILY 07/27/16 rivaroxaban 20 mg tablet 20 mg PO DAILY #90 tab 01/18/18 hydrochlorothiazide 25 mg tablet 25 mg PO QDAY tab 02/01/18 cholecalciferol (vitamin D3) 2,000 unit capsule 2,000 unit PO QDAY cap 02/02/18 metoprolol tartrate 25 mg tablet 12.5 mg PO BID #180 tab 09/02/18 Flecainide [Tambocor] 100 mg PO BID #60 tablet 01/28/19 The following prescriptions were given: Flecainide [Tambocor] 100 mg PO BID #60 tablet Primary Care Physician: Junior Ashley III, MD [Primary Care Provider] - Please follow up with your Primary Care Physician in: 3-5 days Test Results: Test results from this visit will be discussed in further detail at your follow- up appointment, if applicable. Please Follow Up With: Akhil Oswald MD When: 4 weeks as previously scheduled
--- NOTE | 2019-01-28 08:49 | PCM.DC.SUM ---
Discharge Date and Diagnosis Date of Admission: 01/25/19 Date of Discharge: 01/28/19 - Secondary Discharge Diagnosis Chronic Problems (Last Reviewed 09/02/18 @ 11:46 by Akhil Oswald MD) History of cardiac radiofrequency ablation (Chronic) June 2017 @ [facility] and Jul 2018 Chronic atrial fibrillation (Chronic) Obstructive sleep apnea (Chronic) Hyperparathyroidism, unspecified (Chronic) Paroxysmal atrial fibrillation (Chronic) Hospital Course and Treatment Imaging Results: CXR: IMPRESSION: Mildly prominent cardiac shadow. Venous Doppler: IMPRESSION: Normal venous Doppler ultrasound of the lower extremity. Procedures: 2-D Echocardiogram - Interpretation Summary Moderate concentric left ventricular hypertrophy. The estimated ejection fraction is 60 %. Unable to assess diastolic dysfunction due to arrhythmia. Trivial tricuspid valve insufficiency. Right ventricular systolic pressure estimated to be 36 mmHg. Compared to echo report dated 02/11/2016, LV function has remained the same. Pt appears to be in atrial fibrillation. RVSP has increased from 26 to 36 mm Hg., Cardioversion Summary of Care Provided: Per HPI: The patient is a 68 year old F with a PMH of Afib s/p ablation x 2 and hypertension. She was admitted with a complaint of palpitations for the last few days. Patient had no associated dizziness or lightheadedness, chest pain, abdominal pain, diarrhea or vomiting. She used to be on flecainide, but says this was discontinued in 10/10. She usually follows up with dr Pina in [facility] main campus. Review of systems was otherwise negative. EKG in the ED showed Afib with HR in 120s. and labs were unremarkable. Initial troponin was negative. She is being admitted to be managed for Afib with RVr. She received cardizem bolus in the ED. She refuses to be cardioverted as she had a hematoma in her throat the last time she was cardioverted. Hospital Course: 1. A. fib with RVR/ADX-90-zepo-old female with a history of A. fib that she has had a previous ablation x2 as well as cardioversion. She stopped her flecainide in September and went into A. fib on this admission. Initially her metoprolol was increased to 50 to attempt to control her rate however it was discussed with cardiology that a cardioversion should be performed. She was cardioverted on the day of discharge and she tolerated the procedure well. She will be discharged on flecainide 100 mg twice daily, and she will revert to her normal metoprolol of 12-1/2 mg twice daily because last time she was cardioverted she became bradycardic to 44 bpm. She will follow-up with her PCP in 3-5 days and her pilot fuel engineer in 4 weeks. 2. Right Achilles tendinopathy-she was walking the beach couple weeks ago and developed right ankle pain with swelling behind her heel and ankle. Pain has improved with time and rest. If this worsens she is to follow-up with her primary care physician. 3. Her other medical diagnoses were evaluated and her home medications were continued where appropriate Objective: General: Alert, Oriented x3, Cooperative, No apparent distress HEENT: Atraumatic, PERRLA, EOMI, Normocephalic Oral: Moist Mucosa Neck: Supple, No JVD, Trachea Midline Lungs: Clear to auscultation, Normal air movement, No rhonchi, No wheeze, No rales Cardiovascular: Tachycardic, Normal S1, Normal S2, No murmurs, - - Irregular rhythm Abdomen: Soft, Non Tender, Non-Distended, No Hepato-splenomegaly Extremities: No edema, Capillary Refill Less than 3 Seconds, - - Right Achilles tendinopathy with swelling and a little bit of pain Skin: No rashes, No breakdown Neurological: Neuro grossly intact, Sensory exam intact to light touch and pain Psych/Mental Status: Normal Affect, Appropriate - Physical Exam Vital Signs Temp Pulse Resp BP Pulse Ox 97.8 F 115 H 16 111/60 96 01/28/19 04:19 01/28/19 07:30 01/28/19 04:19 01/28/19 04:19 01/28/19 07:30 Oxygen Delivery Method Room Air Weight: 266 lb 1.567 oz Body Mass Index (BMI) 41.6 Intake and Output for Last 24 Hours 01/26/19 01/27/19 01/28/19 23:59 23:59 23:59 Intake Total 1460 / 1460 1820 / 1820 900 / 900 Balance 1460 / 1460 1820 / 1820 900 / 900 Discharge Activity: Return to Normal Activity, No Restrictions Call your doctor if you observe: Fever of 101 or Higher, Shortness of breath, Dizziness, Fainting spells, Swelling in the ankles, Chest pain, Increased palpitations (irregular heartbeat) Home Medications: Medications to take at Discharge Allopurinol [Zyloprim] 300 mg PO BIDCM 07/27/16 Levothyroxine [Synthroid] 25 mcg PO DAILY 07/27/16 rivaroxaban 20 mg tablet 20 mg PO DAILY #90 tab 01/18/18 hydrochlorothiazide 25 mg tablet 25 mg PO QDAY tab 02/01/18 cholecalciferol (vitamin D3) 2,000 unit capsule 2,000 unit PO QDAY cap 02/02/18 metoprolol tartrate 25 mg tablet 12.5 mg PO BID #180 tab 09/02/18 Flecainide [Tambocor] 100 mg PO BID #60 tablet 01/28/19 Following Prescrptions Were Given to Patient: Flecainide [Tambocor] 100 mg PO BID #60 tablet Primary Care Physician: Junior Ashley III, MD [Primary Care Provider] - Please follow up with your Primary Care Physician in: 3-5 days Please Follow Up With: Akhil Oswald MD When: 4 weeks as previously scheduled Disposition: Home Minutes spent on discharge:: 35 Patient Condition:: Good Medical Necessity - Tobacco Use Smoking Status: Never smoker Meaningful Use Info Meaningful Use Diagnoses (Choose all that apply): None applicable Code Visit Inpatient E&M: 19625 Disch Hosp
--- NOTE | 2019-01-28 08:52 | NURSING ---
0839- Cardioversion done by Dr Oswald w/Dr Smith for anesthesia. Yayo, cathead worker RN, present as well as this RN. 200J x1, pt in NSR HR 60's.
--- NOTE | 2019-01-28 08:53 | DS.PCM_ITS ---
Discharge Date and Diagnosis Date of Admission: 01/25/19 Date of Discharge: 01/28/19 - Secondary Discharge Diagnosis Chronic Problems (Last Reviewed 09/02/18 @ 11:46 by Akhil Oswald MD) History of cardiac radiofrequency ablation (Chronic) June 2017 @ [facility] and Jul 2018 Chronic atrial fibrillation (Chronic) Obstructive sleep apnea (Chronic) Hyperparathyroidism, unspecified (Chronic) Paroxysmal atrial fibrillation (Chronic) Hospital Course and Treatment Imaging Results: CXR: IMPRESSION: Mildly prominent cardiac shadow. Venous Doppler: IMPRESSION: Normal venous Doppler ultrasound of the lower extremity. Procedures: 2-D Echocardiogram - Interpretation Summary Moderate concentric left ventricular hypertrophy. The estimated ejection fraction is 60 %. Unable to assess diastolic dysfunction due to arrhythmia. Trivial tricuspid valve insufficiency. Right ventricular systolic pressure estimated to be 36 mmHg. Compared to echo report dated 02/11/2016, LV function has remained the same. Pt appears to be in atrial fibrillation. RVSP has increased from 26 to 36 mm Hg., Cardioversion Summary of Care Provided: Per HPI: The patient is a 68 year old F with a PMH of Afib s/p ablation x 2 and hypertension. She was admitted with a complaint of palpitations for the last few days. Patient had no associated dizziness or lightheadedness, chest pain, abdominal pain, diarrhea or vomiting. She used to be on flecainide, but says this was discontinued in 10/10. She usually follows up with dr Pina in [facility] main campus. Review of systems was otherwise negative. EKG in the ED showed Afib with HR in 120s. and labs were unremarkable. Initial troponin was negative. She is being admitted to be managed for Afib with RVr. She received cardizem bolus in the ED. She refuses to be cardioverted as she had a hematoma in her throat the last time she was cardioverted. Hospital Course: 1. A. fib with RVR/WPZ-42-ttkd-old female with a history of A. fib that she has had a previous ablation x2 as well as cardioversion. She stopped her flecainide in September and went into A. fib on this admission. Initially her metoprolol was increased to 50 to attempt to control her rate however it was discussed with cardiology that a cardioversion should be performed. She was cardioverted on the day of discharge and she tolerated the procedure well. She will be discharged on flecainide 100 mg twice daily, and she will revert to her normal metoprolol of 12-1/2 mg twice daily because last time she was cardioverted she became bradycardic to 44 bpm. 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 2. Right Achilles tendinopathy-she was walking the beach couple weeks ago and developed right ankle pain with swelling behind her heel and ankle. Pain has improved with time and rest. If this worsens she is to follow-up with her primary care physician. 3. Her other medical diagnoses were evaluated and her home medications were continued where appropriate Objective: General: Alert, Oriented x3, Cooperative, No apparent distress HEENT: Atraumatic, PERRLA, EOMI, Normocephalic Oral: Moist Mucosa Neck: Supple, No JVD, Trachea Midline Lungs: Clear to auscultation, Normal air movement, No rhonchi, No wheeze, No rales Cardiovascular: Tachycardic, Normal S1, Normal S2, No murmurs, - - Irregular rhythm Abdomen: Soft, Non Tender, Non-Distended, No Hepato-splenomegaly Extremities: No edema, Capillary Refill Less than 3 Seconds, - - Right Achilles tendinopathy with swelling and a little bit of pain Skin: No rashes, No breakdown Neurological: Neuro grossly intact, Sensory exam intact to light touch and pain Psych/Mental Status: Normal Affect, Appropriate - Physical Exam Vital Signs Temp Pulse Resp BP Pulse Ox 97.8 F 115 H 16 111/60 96 01/28/19 04:19 01/28/19 07:30 01/28/19 04:19 01/28/19 04:19 01/28/19 07:30 Oxygen Delivery Method Room Air Weight: 266 lb 1.567 oz Body Mass Index (BMI) 41.6 Intake and Output for Last 24 Hours 01/26/19 01/27/19 01/28/19 23:59 23:59 23:59 Intake Total 1460 / 1460 1820 / 1820 900 / 900 Balance 1460 / 1460 1820 / 1820 900 / 900 Discharge Activity: Return to Normal Activity, No Restrictions Call your doctor if you observe: Fever of 101 or Higher, Shortness of breath, Dizziness, Fainting spells, Swelling in the ankles, Chest pain, Increased palpitations (irregular heartbeat) Home Medications: Medications to take at Discharge Allopurinol [Zyloprim] 300 mg PO BIDCM 07/27/16 Levothyroxine [Synthroid] 25 mcg PO DAILY 07/27/16 rivaroxaban 20 mg tablet 20 mg PO DAILY #90 tab 01/18/18 hydrochlorothiazide 25 mg tablet 25 mg PO QDAY tab 02/01/18 cholecalciferol (vitamin D3) 2,000 unit capsule 2,000 unit PO QDAY cap 02/02/18 metoprolol tartrate 25 mg tablet 12.5 mg PO BID #180 tab 09/02/18 Flecainide [Tambocor] 100 mg PO BID #60 tablet 01/28/19 Following Prescrptions Were Given to Patient: Flecainide [Tambocor] 100 mg PO BID #60 tablet Primary Care Physician: Junior Ashley III, MD [Primary Care Provider] - Please follow up with your Primary Care Physician in: 3-5 days Please Follow Up With: Akhil Oswald MD When: 4 weeks as previously scheduled Disposition: Home Minutes spent on discharge:: 35 Patient Condition:: Good Medical Necessity - Tobacco Use Smoking Status: Never smoker Meaningful Use Info Meaningful Use Diagnoses (Choose all that apply): None applicable Code Visit Inpatient E&M: 59388 Disch Hosp
--- NOTE | 2019-01-28 08:57 | PRO.PCM_ITS ---
Procedure Report Date of Procedure: 01/28/19 CONSCIOUS SEDATION REPORT DATE OF SERVICE: January 28, 2019 BRIEF HISTORY OF PRESENT ILLNESS: The patient is a 68-year-old female who initially urgency department on January 25 with complaints of palpitations. She was subsequently found to be in atrial fibrillation with RVR. She is currently anticoagulated on Xarelto. Her last surface echocardiogram revealed an ejection fraction of 60%. The patient denies any previous anesthetic complications. She did undergo a prior cardioversion approximately 3 years ago at the [facility]. She does have a history of obstructive sleep apnea, for which she utilizes nocturnal Pap therapy. PHYSICAL EXAMINATION: VITAL SIGNS: Reviewed and were acceptable. GENERAL: The patient is an obese female, in no apparent distress, speaking in full sentences. HEENT: Normocephalic, atraumatic. Mucous membranes are moist and pink. Good mouth opening noted. Trachea is midline. MP II CHEST: S1, S2 irregularly irregular. No murmurs, rubs or gallops were noted. LUNGS: Clear to auscultation bilaterally without appreciable wheezes, rales or rhonchi. ABDOMEN: Soft, nontender, nondistended. Positive bowel sounds. EXTREMITIES: There is no clubbing, cyanosis or edema. ASA Class: II DESCRIPTION OF PROCEDURE: After confirmation of informed consent, the patient's anesthesia plan was reviewed in detail. Propofol was chosen. Risks and benefits were reviewed and the patient agreed to proceed. At 0834, the patient was her first bolus of propofol. In total, the patient required 80 mg of propofol to achieve an appropriate level of sedation. Following this, the patient was given a 200 joule synchronized cardioversion by Dr. Oswald at the bedside. This was successful in achieving normal sinus rhythm. The patient was monitored until 0843, at which time she reached her baseline mental status and function. The patient tolerated the procedure well. COMPLICATIONS: None ESTIMATED BLOOD LOSS: None RECOMMENDATIONS: Okay to recover in usual fashion. Code Visit 9xxxx: Other Procedure See Report - 21302
[2019-01-28] MEDS: hydroCHLOROthiazide 25 MG Tablet PO (10:41)
[2019-01-28] MEDS: Flecainide 100 MG Tablet PO (10:41)
[2019-01-28] MEDS: Allopurinol 300 MG Tablet PO (10:41)
== END 2019-01-28 11:37 | disposition home or self-care (01) | DRG 309 ==
LOC: ED 20:45 → PCU 22:33
PROVIDERS: Admitting Provider Student in an Organized Health Care Education/Training Program; Emergency Provider Emergency Medicine; Family Provider Family Medicine; PCP Family Medicine; Visit Provider Family Medicine
DX: I48.0 Paroxysmal atrial fibrillation (principal); Z68.41 Body mass index [BMI] 40.0-44.9, adult; I10 Essential (primary) hypertension; G47.33 Obstructive sleep apnea (adult) (pediatric); E87.6 Hypokalemia; E03.9 Hypothyroidism, unspecified; Z79.899 Other long term (current) drug therapy; E21.3 Hyperparathyroidism, unspecified; E66.01 Morbid (severe) obesity due to excess calories
CPT/HCPCS: 36415; 71045; 80048; 83735; 84443; 84484; 85025; 92960; 93005; 93306; 93971; 99283; J7040; A4216

== ENCOUNTER 2019-03-23 10:30 | Outpatient (RCR) | payer MEDICARE, OTHER, SELFPAY ==
[2019-02-23 07:58] VITALS: BMI 42.1
--- NOTE | 2019-03-04 12:37 | HP.PTEVAL_ITS ---
Patient's Visit Information KATELYNN CALABRESE is a 68 year old F referred to Physical Therapy by Junior Ashley III, MD with a diagnosis of R achilles tendonitis and R metatarsalgia. Date of Evaluation: 03/04/19 Physical Therapist: Alexsander Olivera DPT - Visit Plan Frequency: 2x /Week Duration: 4 Weeks Plan: Start with graston, DN, plantar fascial stretching, heel cord stretching. Progress to ankle eccnetric strengthening as tolerated. - Subjective Findings: Pt. is here today for her initial evaluation R achilles tendonitis and metatarsalgia. Pt. reports having increased pain ~2 weeks after going to [place]. Pt. also reports around the same time buying new shoes. Pt. had xrays which showed no acute fractures, but did have some calcification at platar facia insertion and achilles tendon insertion. She denies N/T in either foot. Increased pain with first few steps in AM. Pt. has increased pain with walking. Decreased pain with sitting. Only able to take tylenol due to allergies. Pt. reports pain at achilles tendon and closer to the metatarsal of R foot on plantar side. Pt. was concerned as she was starting to have increased R knee and hip pain with walking. Pt. is hopeful to reduce symptoms in order to get back to all recreational and gym exercises without limitations. - Pain R achilles tendon Pain Intensity (Out of 10): 3 Pain Intensity Range: 0, 6 R platar fascia Pain Intensity (Out of 10): 1 Pain Intensity Range: 1, 6 - Objective POSTURE: Pt. has increased L knee valgus, normal arch hieghts bilaterally. Pt. has increased R lateral lean with, trunk shift to L side. PALPATION: Pt. has increased pain with palpation of achilles tendon and R plantar fascia, both have greatest pain at insertions. NEURO: normal throughout. ROM: Pt. has tighter calf, 8deg of DF, rest of motions of R ankle are normal. MMT: pt. has 5-/5 strength throughout bilateral ankles and intrinsic strength of bilateral feet. AMBULATION: Pt. has [place] pattern with R stance phase of gait. Pt. has normal arch height with SLS positoning. Pt. does have decreased step length bilaterally. STAIRS: Pt. completes with step to pattern, but reports this is her normal pattern and is not new with her current issue. - Goals Goal 1:: Pt. to be I with HEP. Goal Time Frame: 4-6 Weeks Goal 2:: Pt. to ambulate unlimited distances without increase in R foot/ankle pain. Goal Time Frame: 4-6 Weeks Goal 3:: Pt. to complete all gym exercises without increase in symptoms. Goal Time Frame: 4-6 Weeks Goal 4:: Pt. to sleep throughout the night without issues. Goal Time Frame: 4-6 Weeks Goal 5:: Pt. to complete all ADLs and IADLs without increase in symptoms. Goal Time Frame: 4-6 Weeks - Rehabilitation Potential Physical Therapy Diagnosis: Pt. has signs and symptoms consistent with R achilles tendonitis and R metatarsalgia. Pt. would benefit from PT for ROM, eccentric strengthening with use of manual techniques and exercise. Rehabilitation Potential: Excellent - Anticipated Interventions Patient/Client Instruction: Educate patient on: Condition, Plan of Care, Risk Factors For the Purpose of:: To foster healthy habits, To improve decision making, To facilitate caregiver knowledge, To improve self management, To prevent re- injury, To improve ability to perform tasks related to life management, To improve tolerance to ADL's Therapeutic Exercise to Include: Strength training, Power training, Endurance training, Coordination, Agility training, Passive ROM, Active ROM, Dynamic Lumbar Stabilization For the Purpose of:: To decrease pain, To decrease swelling/inflammation, To increase ROM, To improve nutrient delivery to tissue, To increase oxygenation perfusion, To improve muscle performance and motor function, To improve health of tissue, To decrease soft tissue restriction, To increase flexibility/ROM Manual Therapy Techniques to Include: Mobilization, Passive ROM, Functional dry needling, Soft tissue mobilization For the Purpose of:: To decrease pain, To decrease swelling/inflammation, To increase ROM, To improve nutrient delivery to tissue Thank you for the opportunity to evaluate your patient. For Medicare and Medicare HMO plans, please review the plan of care and approve it. It will need to be FAXED BACK to us at [phone] for Medicare purposes. For Medicare only, by signing this I certify the plan of care. Please let me know if there are questions or concerns regarding this plan of care. Physician Signature: Date:
--- NOTE | 2019-09-12 09:06 | HP.PTDCNRP_ITS ---
HP - Discharge Summary (1) - Patient Information KATELYNN CALABRESE was seen in my office for initial evaluation on 03/04/19. The following Plan of Care was established for this patient: Initial Frequency: 2x /Week Initial Duration: 4 Weeks - Anticipated Interventions Patient/Client Instruction: Educate patient on: Condition, Plan of Care, Risk Factors For the Purpose of:: To foster healthy habits, To improve decision making, To facilitate caregiver knowledge, To improve self management, To prevent re- injury, To improve ability to perform tasks related to life management, To improve tolerance to ADL's Therapeutic Exercise to Include: Strength training, Power training, Endurance training, Coordination, Agility training, Passive ROM, Active ROM, Dynamic Lumbar Stabilization For the Purpose of:: To decrease pain, To decrease swelling/inflammation, To increase ROM, To improve nutrient delivery to tissue, To increase oxygenation perfusion, To improve muscle performance and motor function, To improve health of tissue, To decrease soft tissue restriction, To increase flexibility/ROM Manual Therapy Techniques to Include: Mobilization, Passive ROM, Functional dry needling, Soft tissue mobilization For the Purpose of:: To decrease pain, To decrease swelling/inflammation, To increase ROM, To improve nutrient delivery to tissue This patient was last seen in our office 03/23/19. Pertinent comments regarding their Physical therapy will appear below: Pt. was seen for her achilles and plantar fascia pain. Pt. was doing well and was to follow up with PT in 2 weeks if needed. Pt. has not been seen in several weeks and will be DC from PT at this point in time. At this point I will be discontinuing this patient from physical therapy. I would be happy to see this patient again in the future if found appropriate by the physician. Thank you! Alexsander Olivera, ADALIDT
== END 2019-03-23 19:00 | disposition home or self-care (01) ==
LOC: PT 10:30
PROVIDERS: Family Provider Family Medicine; PCP Family Medicine; Referring Provider Family Medicine; Visit Provider Family Medicine
DX: M76.61 Achilles tendinitis, right leg (principal); M77.41 Metatarsalgia, right foot
CPT/HCPCS: 97110; 97140; 97161

== ENCOUNTER 2020-02-05 04:20 | Emergency (ER) | payer MEDICARE, OTHER, SELFPAY ==
[2020-01-04 15:28] VITALS: BMI 42.4
[2020-02-05 04:21] VITALS: BP 185/86; PULSE 66; RESP 18; TEMP 37; O2SAT 98; BMI 42.3
--- NOTE | 2020-02-05 04:30 | RAD_ITS ---
STUDY: X-RAY CHEST REASON FOR EXAM: Female, 69 years old. FELL ON THURSDAY -- C/O PAIN TO RT LATERAL RIB CAGE WITH DIFFICULTY IN MOVING RT ARM TECHNIQUE: 01/16/2020 COMPARISON: None. FINDINGS: The lungs demonstrate minimal linear right lung base opacity likely due to atelectasis. Normal size heart. Normal mediastinum and bing. Normal visualized pulmonary arteries. Normal visualized aortic arch and descending thoracic aorta. There are diffuse degenerative changes of the visualized thoracic spine. Normal visualized ribs, clavicles, and shoulders. There is no demonstrated abnormality of the visualized soft tissue structures of the upper abdomen. RAD/Chest PA and Lateral IMPRESSION: Minimal linear right lung base probable atelectasis. Electronically Signed: Flavio Murillo, at 4:54 EDT Tel , Service support ,
--- NOTE | 2020-02-05 04:33 | ED.DCSUM_ITS ---
- ER Visit Summary Date of Service: 02/05/20 Chief Complaint: Fell on Thursday complaining of right rib cage pain History of Present Illness: The patient is a 69 F history of A. fib on Xarelto with 2 prior ablations. Patient states her having for work times her house. She tripped and fell on the floor on Thursday and injured her right lateral rib cage. She denies hitting her head. No LOC. No headache. No other complaints. Physical Examination: Older female no acute distress vital signs are stable afebrile. Pulse ox 98% on room air no signs hypoxia. H EENT exam unremarkable atraumatic. Pupils round react light. No facial or scalp trauma nontender. No bruising. C-spine nontender. Trachea midline. Lungs clear to auscultation bilaterally. Heart regular rhythm no murmur. Chest wall right lateral rib cage tenderness. Mid axillary line. No subcu air or crepitance. No bruising. No gross bony deformity. Other ribs are nontender. Abdomen soft nontender normal bowel sounds no peritoneal signs. No bruising. Pelvic girdle intact. Extremities moves all 4. Neurovascular intact. No deformity. Back spine nontender. Posterior ribs nontender. Neurologically she is awake and alert with no focal motor or sensory deficits. GCS of 15. She is awake and alert. Test Results: Chest x-ray 2 views AP and lateral read by myself and also read by the radiologist shows no acute abnormality. No obvious rib fracture. No pneumo or hemothorax. I did go over the film with both the patient and her . I did discuss with them the possibility of a nondisplaced rib fracture that does not show up on the x-ray. Emergency Department Course and Treatment: Patient treated with Tylenol for pain. Concern is rib fracture versus contusion. Treatment Plan: Patient doing well on repeat exam at 5:10 AM. Ice to her rib cage. Pillow for support. [place] for pain as needed. Disposition: Discharge Impression: Tripped and fell Acute right lateral rib cage contusion History of A. fib anticoagulated on Xarelto This note was generated with [employer] dictation software. It may contain incorrect words, spelling, and punctuation that were not noted in review of the chart prior to signing ED Disposition - Plan for ED Patient: Referrals: Junior Ashley III, MD [Primary Care Provider] -
[2020-02-05] MEDS: Acetaminophen 500 MG Tablet 1000 MG PO (04:34)
--- NOTE | 2020-02-05 05:18 | ED.DEP ---
ED Disposition - Plan for ED Patient: Disposition: Home or Assisted Living Instructions: RIB: CONTUSION vs MINOR FRACTURE Prescriptions: Hydrocodone/Acetaminophen [[place] 7.5-325 Tablet] 1 ea PO 4X/DAY PRN PRN #14 tab PRN Reason: Pain Or Fever Prescription Printed Referrals: Junior Ashley III, MD [Primary Care Provider] - 1 Week if not improving Additional Instructions: Ice to right lateral rib cage. Use a pillow for support. [place] as needed for pain or just use Tylenol. Understand that [place] has Tylenol in it so I would not use both of them. Follow-up if not improving.
[2020-02-05 05:30] VITALS: BP 176/82; PULSE 86; RESP 16; O2SAT 97
== END 2020-02-05 05:31 | disposition home or self-care (01) ==
PROVIDERS: Emergency Provider Emergency Medicine; PCP Family Medicine
DX: S20.211A Contusion of right front wall of thorax, initial encounter (principal); W01.0XXA Fall on same level from slipping, tripping and stumbling without subsequent striking against object, initial encounter; Y93.9 Activity, unspecified; Y92.9 Unspecified place or not applicable; Y99.9 Unspecified external cause status; I48.91 Unspecified atrial fibrillation; I10 Essential (primary) hypertension; Z79.01 Long term (current) use of anticoagulants; Z79.899 Other long term (current) drug therapy
CPT/HCPCS: 71046; 99283

== ENCOUNTER → 2020-02-06 09:30 | Outpatient (CLI) | payer MEDICARE, OTHER, SELFPAY ==
[2020-01-04 15:28] VITALS: BMI 42.4
--- NOTE | 2020-01-16 09:10 | RAD_ITS ---
EXAM DESCRIPTION: PORTABLE AP CHEST CLINICAL HISTORY: 69 years Female, PRE OP HEART CATH; -- AFIB PRE OP HEART CATH; -- AFIB COMPARISON: Previous portable chest obtained on 01/25/2019 FINDINGS: The thorax is intact. The heart and mediastinum appear to be within normal limits. The lungs appear to be well areated without evidence of pneumonic consolidation or pleural effusion. RAD/Chest PA and Lateral IMPRESSION: Normal portable chest. Electronically Signed: Kaiden Mendoza, at 15:04 EST Tel , Service support ,
[2020-01-16 09:29] LABS: Absolute Lymphocyte Count 1.91 X10^3/uL (0.83-4.51); Absolute Neutrophil Count 5.5 X10^3/uL (2.0-7.7); Basophil# 0.07 X10^3/uL; Basophil% 0.9 % (0-1); Eosinophil# 0.12 X10^3/uL; Eosinophils% 1.5 % (0-5); Hemoglobin 13.1 g/dL (12.0-15.0); Lymphocyte # 1.91 X10^3/ul (4.0); Lymphocyte % 23.8 % (19-41); Mean Corp Hgb Conc 32.8 g/dL (32-36); Mean Corpuscular Hgb 30.1 pg (27.0-32.0); Mean Platelet Vol. 10.1 fl (6.2-12.0); Monocyte# 0.43 X10^3/uL; Monocyte% 5.4 % (0-10); NRBC Flagged by Analyzer 0 % (0-5); Neutrophil # 5.45 X10^3/uL (2.7-7.7); Platelet Count 252 K/mm3 (150-450); RBC Distribution Width CV 13.4 % (11.6-14.6); RBC Distribution Width SD 45.1 fl (35.1-43.9); Red Blood Count 4.35 M/mm3 (4.2-5.4)
[2020-01-16 09:44] LABS: Anion Gap 7 (5-15); BUN 19 mg/dL (7-18); BUN/Creat Ratio 23.4 RATIO (10-20); Calcium,Total 9.3 mg/dL (8.5-10.1); Chloride 103 mmol/L (98-107); Creatinine, Serum 0.81 mg/dL (0.55-1.02); EST Glomerular Filtration Rate 74 mL/min (>60); Est Glom Filt Rate - Afr Amer 89 mL/min (>60); Glucose 115 mg/dL (74-106); Potassium 3.7 mmol/L (3.5-5.1); Sodium Level 138 mmol/L (136-145)
[2020-02-05 04:21] VITALS: BMI 42.3
== END ==
PROVIDERS: PCP Family Medicine; Referring Provider Internal Medicine Cardiovascular Disease; Visit Provider Internal Medicine Cardiovascular Disease
DX: I48.0 Paroxysmal atrial fibrillation (principal); I10 Essential (primary) hypertension; I51.7 Cardiomegaly; R07.9 Chest pain, unspecified; Z92.29 Personal history of other drug therapy
CPT/HCPCS: 36415; 71046; 80048; 85025

== ENCOUNTER 2020-04-29 15:25 | Emergency (ER) | payer MEDICARE, OTHER, SELFPAY ==
[2020-04-29 15:26] VITALS: BP 158/75; PULSE 68; RESP 16; TEMP 36.8; O2SAT 98; BMI 42.3
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
--- NOTE | 2020-04-29 16:11 | ED.DCSUM_ITS ---
History of Present Illness Chief Complaint: Other, Pain/Inj Informant: Patient Onset: Today Narrative: Patient is on Xarelto and today a large metal bar from the garage fell and hit her in the right side of her face. She states that felt like she had regis her brain. She notes a continued headache some right facial pain. She notes an abrasion. Any dental injuries. She states her teeth seem to line up appropriately. She is able to open and close her jaw. No double vision. No epistaxis. Past Medical History - Allergies and Home Meds Allergies/Adverse Reactions: Allergies etodolac Allergy (Verified 04/29/20 15:26) Itching Penicillins Allergy (Verified 04/29/20 15:26) Hives Sulfa (Sulfonamide Antibiotics) Allergy (Verified 04/29/20 15:26) Hives Primary Care Physician: Junior Ashley III, MD [Primary Care Provider] - As Needed Surgical History: hysterectomy, total hip arthroplasty, total knee arthroplasty, - - Cornea surgery Smoking Status: Never smoker - Family History Maternal Family History: Family History (Last Reviewed 01/04/20 @ 15:[address] Akhil Oswald MD) Father CVA (cerebral vascular accident) Atrial fibrillation Family History: Reports: COPD Paternal Family History: Family History (Last Reviewed 01/04/20 @ 15:[address] Akhil Oswald MD) Father CVA (cerebral vascular accident) Atrial fibrillation Family History: Reports: - - Atrial fibrillation Review of Systems General: Denies: Chills, Fever, Sweats Eyes: Denies: Visual changes - bilaterally, Diplopia ENT: Reports: - - Right facial pain . Denies: Rhinorrhea, Sore throat Cardiovascular: Denies: Chest pain, Palpitations Respiratory: Denies: Dyspnea, Cough, Dyspnea on exertion Gastrointestinal: Denies: Abdominal pain, Nausea, Vomiting, Diarrhea, Melena, Hematochezia Genitourinary: Denies: Dysuria, Hematuria, Frequency Musculoskeletal: Denies: Back pain, Extremity Pain Skin: Denies: Rash, Wounds Neurological: Reports: Headache. Denies: Weakness, Numbness Physical Exam Vital Signs/Narrative: Vital Signs Temp Pulse Resp BP Pulse Ox 04/29/20 15:26 98.2 F 68 16 158/75 H 98 General: Well nourished, Well developed, No Acute Distress Head: Normocephalic, Trauma - there is a superficial abrasion over the TMJ region. There is mild erythema over the maxillary sinus. Eyes: Perrl, EOMI ENT: Moist mucous membranes, No rhinorrhea Neck: Supple, Nontender Cardiovascular: Regular rate, Regular rhythm, No murmurs Respiratory: No distress, CTA bilaterally, Chest nontender Abdomen: Soft, Nontender, Nondistended, Normal bowel sounds Back: Nontender, Normal Inspection Extremities: Nontender, No edema Skin: Normal color, No rash Neurological: Alert, Oriented x3, Cranial nerves II-XII grossly intact, Normal Strength, Normal Sensation Psychological: Normal affect, Normal Mood Diagnostic/Tx/Re-eval Clinical Impression(s) from Imaging Studies Brain CT 04/29/20 15:37 IMPRESSION: Normal unenhanced CT scan of the brain. No change. Stable mild inflammatory changes paranasal sinuses Electronically Signed: Lucho Cavazos at 16:23 EDT Tel , Service support , Facial/Sinus 04/29/20 15:37 IMPRESSION: Mild anterior facial soft tissue edema/hematoma Mild inflammatory changes paranasal sinuses No fractures Electronically Signed: Lucho Cavazos at 16:28 EDT Tel , Service support , - Medical Decision Making CT of the head and facial bones were negative for fracture or intracranial h emorrhage. Patient be discharged home with supportive care return instructions given and patient notes understanding. ED Disposition - Plan for ED Patient: Disposition: Home or Assisted Living Diagnosis: Closed head injury, Facial contusion, Anticoagulated Instructions: ED CONTUSION Face No Wake Up], ED Head Injury Adult Referrals: Junior Ashley III, MD [Primary Care Provider] - As Needed
== END 2020-04-29 16:43 | disposition home or self-care (01) ==
LOC: ED 16:23
PROVIDERS: Emergency Provider Emergency Medicine; PCP Family Medicine
DX: S00.83XA Contusion of other part of head, initial encounter (principal); W22.8XXA Striking against or struck by other objects, initial encounter; Y93.9 Activity, unspecified; Y92.9 Unspecified place or not applicable; Z79.01 Long term (current) use of anticoagulants
CPT/HCPCS: 70450; 70486; 99282

== ENCOUNTER → 2021-01-15 11:56 | Outpatient (CLI) | payer MEDICARE, OTHER, SELFPAY ==
[2021-01-15 10:47] VITALS: BMI 42.4
--- NOTE | 2021-01-15 12:04 | RAD_ITS ---
STUDY: X-RAY CHEST REASON FOR EXAM: Female, 70 years old. Dyspnea, PRE HEART CATH TECHNIQUE: PA and lateral views of the chest. COMPARISON: Comparison is made with prior study dated 02/05/2020. FINDINGS: Stable elevation of the anterior aspect of the right hemidiaphragm. The lungs are clear and expanded. There is no demonstrated pleural abnormality. Normal size heart. Normal mediastinum and bing. Normal visualized pulmonary arteries. There is atherosclerotic tortuosity of the aortic arch and descending thoracic aorta. There are diffuse degenerative changes of the visualized thoracic spine. Normal visualized ribs, clavicles, and shoulders. There is no demonstrated abnormality of the visualized soft tissue structures of the upper abdomen. RAD/Chest PA and Lateral IMPRESSION: Stable examination. No acute abnormality is seen. Electronically Signed: Jermaine Gibbons MD at 15:49 EST , Service support ,
[2021-01-15 13:06] LABS: Absolute Lymphocyte Count 2.51 X10^3/uL (0.83-4.51); Absolute Neutrophil Count 6.5 X10^3/uL (2.0-7.7); Basophil# 0.06 X10^3/uL; Basophil% 0.6 % (0-1); Eosinophil# 0.16 X10^3/uL; Eosinophils% 1.6 % (0-5); Hemoglobin 12.9 g/dL (12.0-15.0); Lymphocyte # 2.51 X10^3/ul (4.0); Lymphocyte % 25.3 % (19-41); Mean Corp Hgb Conc 32.3 g/dL (32-36); Mean Corpuscular Hgb 29.9 pg (27.0-32.0); Mean Corpuscular Volume 92.8 fL (81-99); Mean Platelet Vol. 10.3 fl (6.2-12.0); Monocyte# 0.65 X10^3/uL; Monocyte% 6.6 % (0-10); NRBC Flagged by Analyzer 0 % (0-5); Neutrophil # 6.49 X10^3/uL (2.7-7.7); Neutrophil % 65.5 % (47-70); Platelet Count 308 K/mm3 (150-450); RBC Distribution Width CV 13.4 % (11.6-14.6); RBC Distribution Width SD 46.1 fl (35.1-43.9); Red Blood Count 4.31 M/mm3 (4.2-5.4); White Blood Count 9.9 K/mm3 (4.4-11.0)
[2021-01-15 13:42] LABS: Anion Gap 8 (5-15); BUN 15 mg/dL (7-18); BUN/Creat Ratio 20.2 RATIO (10-20); Calcium,Total 9.4 mg/dL (8.5-10.1); Chloride 104 mmol/L (98-107); Creatinine, Serum 0.74 mg/dL (0.55-1.02); EST Glomerular Filtration Rate 82 mL/min (>60); Est Glom Filt Rate - Afr Amer 99 mL/min (>60); Glucose 89 mg/dL (74-106); Potassium 3.8 mmol/L (3.5-5.1); Sodium Level 138 mmol/L (136-145)
== END ==
PROVIDERS: PCP Family Medicine; Referring Provider Internal Medicine Cardiovascular Disease; Visit Provider Internal Medicine Cardiovascular Disease
DX: R06.00 Dyspnea, unspecified (principal)
CPT/HCPCS: 36415; 71046; 80048; 85025

== ENCOUNTER 2021-02-04 07:53 | Day surgery (SDC) | payer MEDICARE, OTHER, SELFPAY ==
[2021-01-15 10:47] VITALS: BMI 42.4
[2021-02-01 08:28] VITALS: BMI 42.4
--- NOTE | 2021-02-04 05:52 | HP_ITS ---
[facility] History of Present Illness Details: Tita Campuzano is a 70-year-old lady with a history of hypertension, paroxysmal atrial fibrillation who underwent radiofrequency ablation in June 2017. She had been maintaining sinus rhythm while on flecainide she discontinued that and then went back into atrial fibrillation. In January of 2019 she was admitted to the hospital was noted to be in atrial for ablation with a rapid ventricular response rate she underwent DC cardioversion and her flecainide was restarted. She is done well since then. Her echocardiogram at that time demonstrated an ejection fraction of 60% with moderate left ventricular hypertrophy and right ventricular systolic pressure of 36 mmHg. She has remained on flecainide 75 mg and appears to be tolerating that with only occasional short episodes of atrial fibrillation. She was starting on Lamisil and therefore she reduced the dose of her flecainide and started having irregular beats. She also had some chest discomfort which she describes as not related to exertion. She did not want to have a stress test because they previously have had false positives. She went back on the appropriate dose of flecainide and his symptoms have abated. She has complained of some shortness of breath with exertion and her blood pressure has somewhat been elevated when she exerts herself. She has had no dizziness or diaphoresis no near syncope or syncope her physical exam here today demonstrates clear lung grey regular rate and rhythm no pedal edema her blood pressure is under good control. Intake Vital Signs 01/15/21 Height 5 ft 7 in 01/15/21 Weight: 271 lb 01/15/21 BMI 42.4 01/15/21 BP 147/79 H 01/15/21 Respiration 18 01/15/21 Pulse 58 L 01/15/21 Pulse Oximetry (%) 98 Intake Visit Reasons: 6-7 M FU Allergies etodolac Allergy (Verified 04/29/20 15:26) Itching Penicillins Allergy (Verified 04/29/20 15:26) Hives Sulfa (Sulfonamide Antibiotics) Allergy (Verified 04/29/20 15:26) Hives Medications Allopurinol [Zyloprim] 300 mg PO BIDCM 07/27/16 [History Confirmed 01/15/21] Levothyroxine [Synthroid] 25 mcg PO DAILY 07/27/16 [History Confirmed 01/15/21] cholecalciferol (vitamin D3) 50 mcg (2,000 unit) capsule 2,000 unit PO QDAY cap 02/02/18 [History Confirmed 01/15/21] Xarelto 20 mg tablet 20 mg PO DAILY #90 tab NS 01/15/21 [Rx Confirmed 01/15/21] acetaminophen 650 mg tablet,extended release 650 mg PO QPM tab 01/15/21 [History Confirmed 01/15/21] flecainide 150 mg tablet 75 mg PO Q12H #90 tab 01/15/21 [Rx Confirmed 01/15/21] hydrochlorothiazide 25 mg tablet 25 mg PO QDAY #90 tab 01/15/21 [Rx Confirmed 01/15/21] lisinopril 5 mg tablet 5 mg PO DAILY #90 tab 01/15/21 [Rx Confirmed 01/15/21] metoprolol tartrate 25 mg tablet 12.5 mg PO BID #90 tab 01/15/21 [Rx Confirmed 01/15/21] Ejection fraction %: 60 to 64 PFSH Medical History Paroxysmal atrial fibrillation (Chronic) LVH (left ventricular hypertrophy) (Chronic) Essential (primary) hypertension (Chronic) Body mass index (BMI) 35 or more (Chronic) History of high risk medication treatment (Chronic) Hyperparathyroidism (Chronic) Hypothyroidism (Chronic) Obesity (Chronic) Obstructive sleep apnea (Chronic) Pain in left lower leg (Inactive) Surgical History History of cardiac radiofrequency ablation (Resolved 06/2018) History of cardioversion (Resolved 01/28/19) History of hip replacement (Resolved) History of hysterectomy (Resolved) History of knee replacement (Resolved) Family History Father CVA (cerebral vascular accident) Atrial fibrillation Social History (Updated 01/15/21 @ 11:[address] Akhil Oswald MD) Smoking Status: Never smoker ROS Const Const: Negative for fatigue, weakness, headache(s), frequent falls, difficulty sleeping or excessive sweating Eyes Eyes: Negative for loss of peripheral vision, transient loss of vision, blurry vision, double vision or tunnel vision ENT ENT: Negative for headache(s), dizziness, Nosebleed/epistaxis or balance problems Cardio Chest Pain: No Palpitations: No Edema: None Muscle aches with walking: None Resp Respiratory: Positive for SOB with activity; negative for SOB at rest, SOB orthopnea\SOB lying down, Cough or paroxysmal nocturnal dyspnea GI GI: Negative nausea, vomiting, heartburn or black,tarry stools : Negative for hematuria Musc Musc: Negative for muscle aches/ myalgia, muscle weakness, joint pain or balance problems Skin Skin: Negative non-healing lesions, rash or unusual bruising Neuro Neuro: Negative for dizziness, lightheadedness, near syncope, syncope, orthostatic symptoms, frequent falls, headache(s), weakness, blurry vision, double vision or lack of coordination [place] Hematologic/Lymphatic: Negative for easy bleeding or easy bruising Endo Endo: Negative for fatigue, excessive sweating or increased thirst/drinking Psych Psych: Negative for anxiety or depression Allergy Allergy/Immunology: Negative for hives, Negative for rash Cardiology Exam Const Appearance: cooperative, healthy appearing, no acute distress, well developed and well groomed Nutritional Appearance: average body habitus and well nourished Orientation: alert, awake and oriented x3 Head Head: normal to inspection, normocephalic and atraumatic Ears: hearing grossly normal bilaterally and external ears normal Nose: external nose normal, nares normal, nasal mucous membranes and turbinates normal, septum normal, no nasal discharge Face and Sinus: face symmetric Mouth: oral mucosae normal, tongue normal, oropharynx normal and moist mucous membranes Teeth and gingiva: dentition normal Throat: posterior oropharynx normal, tonsils normal and uvula midline Eyes General: appearance normal, both eyes and all related structures Eyelids: eyelids normal Conjunctivae: conjunctivae normal Pupils: PERRL, normal by confrontation and accommodation normal EOM: EOM intact bilaterally Neck Neck: normal visual inspection, trachea midline and no JVD JVD: +5 Carotids: normal carotid upstroke and bounding pulses Chest Chest inspection: normal inspection of the chest, symmetric chest movement and normal respiratory effort Auscultation: Bilateral: Clear to Auscultation Cardio Palpation: normal PMI Rate: regular rate Rhythm: regular rhythm Heart sounds: S1 normal, S2 normal and normal, physiologic split S2; negative rub, gallop or murmur GI GI: normal to inspection, soft, no hepatosplenomegaly and bowel sounds present Neuro General: alert, awake, oriented x3, gait normal, moves all extremities and no focal sensory deficit Skin Skin: no rashes or lesions noted Extremities Pulses: Normal: Right Femoral Pulse, Left Femoral Pulse, Right Dorsalis Pedis Pulse, Left Dorsalis Pedis Pulse, Right Posterior Tibial Pulse, Left Posterior Tibial Pulse, Right Radial Pulse, Left Radial Pulse Lower Extremity Edema: None: Bilateral Musculoskel Musculoskeletal: No joint tenderness Psych Psychological: normal affect Assessment & Plan 1. Dyspnea on exertion R06.00 Plan She does continue to have dyspnea on exertion. She has had previous echocardiograms which have demonstrated preserved ejection fraction. We have not recently performed a stress test because of the propensity towards falls positive test. I think that this could be an anginal equivalent and the best way will be to perform a left and right heart catheterization there is benefits and alternatives have been explained to her she understands and agrees to proceed. Depending on those findings further recommendations will be made. Orders Orders: Left & Right Heart Cath Today 12 Lead EKG performed by BMS Today Basic Metabolic Profile (BMP) Today CBC W/Diff, Automated Today Chest PA and Lateral Today 2. Essential (primary) hypertension I10 Plan Her blood pressure is under excellent control by her home blood pressure records and we will continue her on the same medications at this time without any change. She remain on the lisinopril and the metoprolol. 3. Paroxysmal atrial fibrillation I48.0 RFA 2017 and 2018 Plan She does have a history of paroxysmal atrial fibrillation with radiofrequency ablation in 2017 and 2018 she remains on flecainide as well as Xarelto. Certainly the cardiac catheterization would give us some reassurance for her continuing on the flecainide thank you for allowing me to participate in her care. 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
[2021-02-04 09:25] LABS: Base Excess 0 mmol/L (-2 to +2); Bicarbonate 24.7 mmol/L (22-26); Blood Gas Specimen Type ART; PO2 78 mmHG (75-100); SO2 96 % (95-99); Total Carbon Dioxide 26 mmol/L; pCO2 37.6 mmHg (35-45); pH 7.43 (7.35-7.45)
[2021-02-04 09:30] LABS: Blood Gas Specimen Type VEN; VBG BASE EXCESS 3 mmol/L (-1.0-3.5); VBG Bicarbonate 27 mmol/L (22-26); VBG PO2 49 mmHg (25-40); VBG SO2 84 % (50-70); VBG TCO2 29 mmol/L (23-33); VBG pCO2 42.3 mmHg (41-51); VBG pH 7.42 (7.32-7.42)
[2021-02-04 09:35] LABS: Blood Gas Specimen Type VEN; VBG BASE EXCESS 3 mmol/L (-1.0-3.5); VBG Bicarbonate 28 mmol/L (22-26); VBG PO2 33 mmHg (25-40); VBG SO2 63 % (50-70); VBG TCO2 29 mmol/L (23-33); VBG pCO2 44.2 mmHg (41-51)
[2021-02-04 09:35] LABS: Blood Gas Specimen Type VEN; VBG BASE EXCESS 3 mmol/L (-1.0-3.5); VBG Bicarbonate 27 mmol/L (22-26); VBG PO2 36 mmHg (25-40); VBG SO2 69 % (50-70); VBG TCO2 29 mmol/L (23-33)
--- NOTE | 2021-02-04 09:50 | CL.D_ITS ---
Patient Name: KATELYNN CALABRESE Study Date: 02/04/2021 Performing: Akhil Oswald MD Ht: 66.92 inches 170 cm : 1950 Wt: 271.17 lbs 123 kg Age: 70 Gender: female BSA: 2.3 PROCEDURE(S) PERFORMED WE08-BQN/LHC/COR/LV CLINICAL PROFILE AND INDICATIONS Indications: Other Heart Failure: None Stress/Imaging Stress/Image Study Performed: No CAD Presentations: Symptom unlikely to be ischemic. CONCLUSIONS Mild pulmonary hypertension. Non obstructive coronary arteries RECOMMENDATIONS Medical therapy DESCRIPTION OF PROCEDURE The patient arrived to the procedure lab. The risks and benefits of the procedure as well as a full d escription of our services here and current unavailability of surgical backup were fully explained to the patient and/or their significant other prior to the catheterization. The Timeout was completed, verifying the correct patient and procedure. The patient's procedural site was prepped and draped in the usual fashion. Local anesthetic was given subcutaneously to right radial region with Lidocaine 2% . Using a modified Seldinger technique, arterial access was obtained via the right radial artery, a 6 Fr sheath was inserted. Venous access was obtained via the right brachiocephalic vein, a 7Fr sheath w as inserted. A 7Fr thermal dilution catheter was inserted and right heart pressures were recorded, it was then advanced to PA position for cardiac outputs. Thermal dilution cardiac outputs were then rec orded. O2 saturations were then obtained. The Thermal dilution catheter was then removed. Right Coronary Artery selective angiography was then performed in multiple views using a 5 Fr. 4.0 Ti vilma catheter. Left Coronary Artery selective angiography was performed in multiple views using a 5 Fr . 4.0 [place] catheter. Left Ventriculography was performed in CHRISTINE projection using a 5 Fr. Pigtail cat heter. LV to AO pullback pressures were then recorded.The arterial sheath was pulled and a TR Band wa s applied for hemostasis. 10cc of air. The venous sheath was then pulled and manual compression appli ed until hemostasis achieved CORONARY ANGIOGRAPHY DOMINANCE: Right Dominant LEFT HEART ASSESSMENT Left Ventricular Ejection Fraction: by LV Gram 60 % Normal LV wall motion Normal Left Ventricular systolic function RIGHT HEART ASSESSMENT Thermal CO: 7.45 Thermal CI: 3.24 Janeth CO: 5.28 Janeth CI: 2.3 PW: 11/18 11 PA: 28/9 20 RV: 41/-2 8 RA: 09/25 2 PVR: 97 SVR: 923 Right Heart pressures - elevated LEFT MAIN: Angiographically normal LEFT ANTERIOR DESCENDING ARTERY: MID LAD: Distal tapering with no stenosis CIRCUMFLEX ARTERY: No significant disease noted RIGHT CORONARY ARTERY: No significant disease noted COMPLICATIONS No Complications PROCEDURE MEDICATIONS Fentanyl 50 mcg IV Versed 1 mg IV Heparin diluted in 23cc Heparinized saline. Patient given 10cc IA of this solution. 02/04/2021 09:16: 33 Verapamil 2.5mg, Ntg 100mcgs, 2000 units of Heparin diluted in 23cc Heparinized saline. Patient give n 10cc IA of this solution. 02/04/2021 09:16:33 SUMMARY OF HEMODYNAMIC DATA Time AIR REST ECG 08:11:38 PW 10/10 (11) PV 09:23:30 PA 28/9 (20) PA 09:23:48 PA 38/9 (21) 09:25:32 PA 34/12 (22) 09:27:05 RV 41/-2, 8 09:27:42 RA 11/ (2) SV 09:28:01 AO 129/59 (88) SA 09:30:26 LV 135/2, 5 09:35:36 LV 144/6, 14 09:35:43 LV 140/8, 14 09:36:24 LVp 135/9, 15 09:36:29 AOp 142/62 (94) 09:36:34 Type SV CO (l/m) CI (l/m/ HR Time AIR REST Thermal 124.20 7.45 3.24 60 08:11:38 Janeth 88.00 5.28 2.30 60 08:11:38 Label % O2 Pres/Loc Time AIR REST AO 96 PV 09:21:20 PA 69 PA 09:34:10 RA 63 SV 09:34:16 Signed By Akhil Oswald MD On 02/04/2021 9:50:44 AM Signed By Akhil Oswald MD On 02/04/2021 9:49:53 AM Akhil Oswald MD
== END 2021-02-04 11:15 | disposition home or self-care (01) ==
LOC: CLSP 07:54
PROVIDERS: PCP Family Medicine; Referring Provider Internal Medicine Cardiovascular Disease; Visit Provider Internal Medicine Cardiovascular Disease
DX: I27.20 Pulmonary hypertension, unspecified (principal); I48.0 Paroxysmal atrial fibrillation; I11.9 Hypertensive heart disease without heart failure; E03.9 Hypothyroidism, unspecified; G47.33 Obstructive sleep apnea (adult) (pediatric); E66.9 Obesity, unspecified; Z79.01 Long term (current) use of anticoagulants; Z79.899 Other long term (current) drug therapy
CPT/HCPCS: 82803; 93460; 99152; 99153; J7040; Q9967; C1751; C1769; C1894

== ENCOUNTER → 2021-08-09 | Outpatient (CLI) | payer MEDICARE, OTHER, SELFPAY ==
--- NOTE | 2021-08-09 10:00 | ASPS_PTH ---
PATIENT: KATELYNN CALABRESE [facility] U#:[id number] AGE/SX: 71/F ROOM: RE08/09/[address]: Dr. Lucho Ashley MD : 1950 BED: DIS: 08/09/2021 SPEC #: [id number] RECD: 08/09/21 13:59 STATUS: NAILA REAdalberto #: [id number] CHERYL: 08/09/21 10:[address]: Lucho Ashley DEPT: CYTOLOGY RECD BY: Seun Lo ENTERED: 08/10/21 17:32 SP TYPE: ASPIRATION OTHR DR: Dr. Cholo Au MD Tissues: Thyroid isthmus Procedures: Special Stain Group II Cytology Other HEADER OPERATION: Right isthmus FNA PRE-OP DIAGNOSIS: Right isthmus nodule TISSUE SUBMITTED: Right isthmus slides DIAGNOSIS CYTOLOGY Right isthmus nodule, FNA (smears): Consistent with benign follicular/colloid nodule. Adequate for evaluation. See comment. SJ:rg 08/12/2021 COMMENT Correlation with clinical, radiologic findings and appropriate follow up are necessary. Immediate cytologic evaluation to determine adequacy is not applicable. CYTOLOGY STUDY Slides are reviewed. CYTOLOGY GROSS Received are 8 smears labeled with the patient's name and designated per the requisition as right isthmus. Submitted for staining. / cc 08/09/21 TC:5 CPT: 75663
== END | disposition home or self-care (01) ==
LOC: LABSPEC 14:09
PROVIDERS: PCP Family Medicine; Visit Provider Surgery
DX: E04.1 Nontoxic single thyroid nodule (principal)
CPT/HCPCS: 88161; 88313

== ENCOUNTER 2022-03-05 13:59 | Emergency (ER) | payer MEDICARE, OTHER, SELFPAY ==
[2022-03-05 14:02] VITALS: BP 156/70; PULSE 68; RESP 14; TEMP 36.2; O2SAT 100; BMI 39.4
--- NOTE | 2022-03-05 14:11 | CT_ITS ---
STUDY: CT BRAIN WITHOUT CONTRAST REASON FOR EXAM: Female, 71 years old. History of fall. Headache. RADIATION DOSAGE (If Supplied By Facility): CTDIvol = ( 44.99 ) mGy, DLP = ( 863.6 ) mGycm TECHNIQUE: Transaxial CT imaging of the brain was performed without administration of intravenous contrast material. Individualized dose optimization techniques were used for this CT. COMPARISON: Comparison is made with prior study dated 04/29/2020. FINDINGS: Normal soft tissue structures. Normal calvarium. Normal size ventricles and extra-axial spaces for the patient''s age. Normal white matter tracts of the cerebral hemispheres. Normal basal ganglia and thalami. Normal brainstem. Normal cerebellum. There is no intracranial hemorrhage. There are no findings of an acute ischemic infarction. There is a 1.1 cm mucosal polyp or retention cyst along the medial inferior wall of the left maxillary sinus. This is unchanged. CT/Brain/Head without Contrast IMPRESSION: No acute abnormality is seen. Electronically Signed: Jermaine Gibbons MD at 14:56 EDT ,
--- NOTE | 2022-03-05 14:11 | RAD_ITS ---
STUDY: X-RAY CHEST REASON FOR EXAM: Female, 71 years old. History of fall. TECHNIQUE: PA and lateral views of the chest. COMPARISON: Comparison is made with prior examination dated 01/15/2021. FINDINGS: Stable elevation of the right hemidiaphragm. There is no demonstrated pleural abnormality. Normal size heart. Normal mediastinum and bing. Normal visualized pulmonary arteries. There is atherosclerotic calcification of the aortic arch with tortuosity. There are diffuse degenerative changes of the visualized thoracic spine. There is degenerative osteoarthritis of the bilateral shoulders. There is no demonstrated abnormality of the visualized soft tissue structures of the upper abdomen. RAD/Chest PA and Lateral IMPRESSION: No acute abnormality is seen. Electronically Signed: Jermaine Gibbons MD at 14:37 EDT ,
--- NOTE | 2022-03-05 14:12 | EDS_ITS ---
HPI History of Present Illness Chief Complaint: Fall Informant: patient Onset/Context/Timing Onset: Today Mechanism/Context: Fall Quality of Pain: Aching Current Severity: Mild Maximum Severity: Mild Narrative Narrative: Patient presents after a fall while walking her dog. Patient states that her dog pulled her down landing on her right side. She complaining of mild pain along the right lateral ribs as well as headache after striking her head. She is currently on Xarelto for history of paroxysmal A. fib. There is no loss of consciousness. She denies vision change, nausea, or vomiting. [facility] Medical History Body mass index (BMI) 35 or more Essential (primary) hypertension History of high risk medication treatment Hyperparathyroidism Hypothyroidism LVH (left ventricular hypertrophy) Mild pulmonary arterial systolic hypertension Obesity Obstructive sleep apnea Pain in left lower leg Paroxysmal atrial fibrillation Thyroid nodule Home Medications allopurinol 300 mg PO BIDCM 07/27/16 [History Last Taken 01/25/19 19:00] levothyroxine 25 mcg PO DAILY 07/27/16 [History Last Taken 01/25/19 06:00] cholecalciferol (vitamin D3) 50 mcg (2,000 unit) capsule 2,000 unit PO QDAY cap 02/02/18 [History Last Taken 01/25/19 08:00] acetaminophen 650 mg tablet,extended release 650 mg PO QPM tab 01/15/21 [History Last Taken Unknown] aspirin 81 mg tablet,delayed release 81 mg PO DAILY 01/15/21 [History Last Taken 02/04/21] hydrochlorothiazide 25 mg tablet 25 mg PO QDAY #90 tab 01/15/21 [Rx Last Taken Unknown] omeprazole magnesium 20 mg capsule,delayed release 20 mg PO DAILY 08/23/21 [History Last Taken Unknown] Xarelto 20 mg tablet 20 mg PO DAILY #90 tab NS 02/18/22 [Rx Last Taken Unknown] lisinopril 5 mg tablet 5 mg PO DAILY #90 tab 02/18/22 [Rx Last Taken Unknown] flecainide 150 mg tablet 75 mg PO Q12H #90 tab 02/20/22 [Rx Last Taken Unknown] metoprolol tartrate 25 mg tablet 12.5 mg PO BID #90 tab 02/20/22 [Rx Last Taken Unknown] Allergy/AdvReac Type Severity Reaction Status Date / Time etodolac Allergy Itching Verified 03/05/22 14:03 Penicillins Allergy Hives Verified 03/05/22 14:03 Sulfa (Sulfonamide Allergy Hives Verified 03/05/22 14:03 Antibiotics) Family History Father CVA (cerebral vascular accident) Atrial fibrillation Surgical History History of cardiac radiofrequency ablation (06/2018) History of cardioversion (01/28/19) History of hip replacement History of hysterectomy History of knee replacement History of left heart catheterization (11/20/08) History of right and left heart catheterization (02/04/21) S/P fine needle aspiration (07/2021) Social History Smoking Status: Never smoker ROS ROS ED Constitutional Constitutional ED: Denies chills or fever(s) Eyes Eyes: Denies change in vision ENT ENT ED: Denies sore throat Cardiovascular Cardiovascular: Reports chest pain Respiratory/Chest Respiratory/Chest: Denies cough or dyspnea Gastrointestinal Gastrointestinal: Denies abdominal pain, nausea or vomiting Musculoskeletal Musculoskeletal: Reports arthralgias; Denies back pain or neck pain Integumentary Denies rash Neurologic Neurologic: Denies headache(s), paresthesias or weakness Allergic/Immunologic Allergic/Immunologic ED: Denies urticaria EXAM Physical Exam Const Vital Signs: 03/05/22 14:02 03/05/22 14:07 Temperature 97.2 F L Temperature Source Temporal Pulse Rate 68 Respiratory Rate 14 Respiratory Effort Normal Respiratory Depth Normal Respiratory Pattern Normal Blood Pressure 156/70 H Blood Pressure Mean 98 Pulse Ox 100 Oxygen Delivery Method Room Air Room Air Positive well nourished and well developed General Appearance ED: well developed HEENT Reports TM's clear atraumatic Tympanic Membrane ED: Yes TM's clear Eyes PERRL and EOMs intact bilaterally Neck full ROM Neck Narrative: No C-spine tenderness. Chest Wall inspection of chest normal Chest Narrative: Mild tenderness of the lateral chest wall. No abrasion or ecchymosis. Resp normal respiratory effort and clear to auscultation bilaterally Cardio regular rhythm Rate: regular rate GI normal to inspection, nondistended, normoactive bowel sounds and non-tender Palpation: soft Back/Spine normal to inspection Extremity normal to inspection Neuro oriented x3 Sensorium / Orientation: alert Motor Exam: strength 5/5 throughout Psych mental status grossly normal Skin no rashes or lesions noted MDM MDM MDM Narrative Medical decision making narrative: 2 view chest x-ray ordered along with CT scan of the head. Radiography Diagnostic Testing: Clinical Impression(s) from Imaging Studies Brain CT 03/05/22 14:11 IMPRESSION: No acute abnormality is seen. Electronically Signed: Jermaine Gibbons MD at 14:56 EDT , Chest X-Ray 03/05/22 14:11 IMPRESSION: No acute abnormality is seen. Electronically Signed: Jermaine Gibbons MD at 14:37 EDT , Treatment and Re-Evaluation Narrative: Chest x-ray per my interpretation reveals no acute abnormalities. CT scan of the head is normal. Patient be discharged with supportive care. Discharge Plan Triage Chief Complaint: Fall ED Provider: Lillian Alvraado Dx/Rx/DC Orders Clinical Impression: Fall, CHI (closed head injury), Contusion of rib Instructions: ED Head Injury (Adult), ED Contusion, Rib Prescriptions: No Action cholecalciferol (vitamin D3) 2,000 unit capsule 2,000 unit PO QDAY RF: 0 hydrochlorothiazide 25 mg tablet 25 mg PO QDAY Qty: 90 RF: 3 acetaminophen [Tylenol 8 Hour] 650 mg tablet extended release 650 mg PO QPM RF: 0 aspirin [Adult Low Dose Aspirin] 81 mg tablet,delayed release (DR/EC) 81 mg PO DAILY RF: 0 omeprazole magnesium [Acid Mold Insert Changer (omeprazole)] 20 mg capsule,delayed release(DR/EC) 20 mg PO DAILY RF: 0 levothyroxine 25 MCG tablet 25 mcg PO DAILY RF: 0 allopurinol 300 MG tablet 300 mg PO BIDCM RF: 0 lisinopril 5 mg tablet 5 mg PO DAILY Qty: 90 RF: 3 Xarelto 20 mg tablet 20 mg PO DAILY Qty: 90 RF: 3 flecainide 150 mg tablet 75 mg PO Q12H Qty: 90 RF: 3 metoprolol tartrate 25 mg tablet 12.5 mg PO BID Qty: 90 RF: 3 Primary Care Provider: Cholo Au Referrals: Cholo Au MD [Primary Care Provider] - As Needed Disposition Disposition: Home, Self Care
== END 2022-03-05 15:16 | disposition home or self-care (01) ==
PROVIDERS: Emergency Provider Emergency Medicine; PCP Family Medicine; Visit Provider Emergency Medicine
DX: S09.90XA Unspecified injury of head, initial encounter (principal); I48.0 Paroxysmal atrial fibrillation; S20.211A Contusion of right front wall of thorax, initial encounter; W01.0XXA Fall on same level from slipping, tripping and stumbling without subsequent striking against object, initial encounter; X50.9XXA Other and unspecified overexertion or strenuous movements or postures, initial encounter; Y93.K1 Activity, walking an animal; I10 Essential (primary) hypertension; E03.9 Hypothyroidism, unspecified; G47.33 Obstructive sleep apnea (adult) (pediatric); E66.9 Obesity, unspecified; Z79.82 Long term (current) use of aspirin; Z79.01 Long term (current) use of anticoagulants; Z79.890 Hormone replacement therapy; Z79.899 Other long term (current) drug therapy
CPT/HCPCS: 70450; 71046; 99282

== ENCOUNTER → 2022-08-07 | Outpatient (CLI) | payer MEDICARE, OTHER, SELFPAY ==
--- NOTE | 2022-08-07 11:42 | US_ITS ---
STUDY: THYROID ULTRASOUND REASON FOR EXAM: Female, 72 years old. thyroid nodule TECHNIQUE: Ultrasound evaluation of the thyroid was performed with real-time and static villeda-scale imaging. COMPARISON: None. FINDINGS: RIGHT LOBE: The right lobe of the thyroid gland measures 4 x 1.6 x 1.2 cm. There is a homogeneous echotexture. There are no demonstrated solid, cystic or complex lesions. LEFT LOBE: The left lobe of the thyroid gland measures 3.6 x 1.4 x 1.2 cm. There is a homogeneous echotexture. There are no demonstrated solid, cystic or complex lesions. ISTHMUS: The isthmus measures 4 mm. Hypoechoic nodule along the right side of the isthmus measuring 11 x 9 x 5 mm. Echogenic Foci which may be calcifications. US/Thyroid IMPRESSION: Isthmus nodule. This nodule is solid or almost completely solid, hypoechoic, [id number]-sjep-[id number], smoothly marginated and contains punctate echogenic foci. TI-RADS points: 7. TI-RADS category: TR5. This nodule is highly suspicious. Recommend FNA evaluation. Electronically Signed: Reilly Zaragoza MD at 19:37 EDT ,
== END | disposition home or self-care (01) ==
LOC: US 11:41
PROVIDERS: PCP Family Medicine; Referring Provider Surgery; Visit Provider Surgery
DX: E04.1 Nontoxic single thyroid nodule (principal)
CPT/HCPCS: 76536

== ENCOUNTER 2022-09-23 16:30 | Outpatient (CLI) | payer MEDICARE, OTHER, SELFPAY ==
[2022-09-23] MEDS: 0.9% Saline Lock 10 ML Syringe IV ×3 (16:50→17:06)
[2022-09-23 16:53] VITALS: BP 150/59; PULSE 56; RESP 18; TEMP 36.5; O2SAT 99; BMI 39.7
[2022-09-23] MEDS: BEBTELOVIMAB 175 MG/2 ML VIAL IV (17:03)
[2022-09-23 17:31] VITALS: BP 140/51; PULSE 49; RESP 18; TEMP 36.4; O2SAT 99
[2022-09-23 17:51] VITALS: BP 144/56; PULSE 51; RESP 18; TEMP 36.7; O2SAT 99
== END 2022-09-23 18:03 | disposition home or self-care (01) ==
LOC: MS3OUT 16:31 → MS2 16:35
PROVIDERS: PCP Family Medicine; Referring Provider Nurse Practitioner Acute Care; Visit Provider Nurse Practitioner Acute Care
DX: U07.1 COVID-19 (principal)
CPT/HCPCS: M0222; Q0222; A4216

== ENCOUNTER 2022-11-17 13:59 | Emergency (ER) | payer MEDICARE, OTHER, SELFPAY ==
[2022-11-17 14:01] VITALS: BP 169/73; PULSE 68; RESP 14; TEMP 36.4; O2SAT 98; BMI 40.9
[2022-11-17 15:05] VITALS: O2SAT 97
--- NOTE | 2022-11-17 15:05 | RAD_ITS ---
STUDY: X-RAY CHEST REASON FOR EXAM: Female, 72 years old. chest pain TECHNIQUE: Single AP portable view of the chest. COMPARISON: 03/05/2022 FINDINGS: Poor inspiration with some bibasilar atelectasis. There is no demonstrated pleural abnormality. There is moderate cardiac enlargement. Normal mediastinum and bing. Normal visualized pulmonary arteries. Normal visualized aortic arch and descending thoracic aorta. Normal visualized thoracic spine. Normal visualized ribs, clavicles, and shoulders. There is no demonstrated abnormality of the visualized soft tissue structures of the upper abdomen. RAD/Chest 1 View (Portable) IMPRESSION: Poor inspiration with some bibasilar atelectasis per Electronically Signed: Reyes Rueda MD at 16:37 EST ,
[2022-11-17 15:57] LABS: Absolute Lymphocyte Count 1.33 X10^3/uL (0.83-4.51); Absolute Neutrophil Count 5.5 X10^3/uL (2.0-7.7); Basophil# 0.05 X10^3/uL; Basophil% 0.7 % (0-1); Eosinophil# 0.08 X10^3/uL; Eosinophils% 1.1 % (0-5); Hematocrit 38.3 % (37-47); Hemoglobin 12.1 g/dL (12.0-15.0); Lymphocyte # 1.33 X10^3/ul (0.83-4.51); Mean Corp Hgb Conc 31.6 g/dL (32-36); Mean Corpuscular Hgb 29.7 pg (27.0-32.0); Mean Corpuscular Volume 93.9 fL (81-99); Mean Platelet Vol. 10.2 fl (6.2-12.0); Monocyte# 0.41 X10^3/uL; Monocyte% 5.6 % (0-10); NRBC Flagged by Analyzer 0 % (0-5); Neutrophil # 5.47 X10^3/uL (2.7-7.7); Neutrophil % 74.2 % (47-70); Platelet Count 252 K/mm3 (150-450); RBC Distribution Width SD 48.4 fl (35.1-43.9); Red Blood Count 4.08 M/mm3 (4.2-5.4); White Blood Count 7.4 K/mm3 (4.4-11.0)
[2022-11-17 16:03] VITALS: PULSE 71; RESP 16; O2SAT 97
--- NOTE | 2022-11-17 16:10 | EDS_ITS ---
HPI History of Present Illness Chief Complaint: Chest Pain Narrative Narrative: 72-year-old female presenting with chest pain which started this morning at 11 AM. She reports it is pressure-like. She states that it lasted until she arrived to the emergency room at around 2 PM. It is now gone. She states he chronically has some shortness of breath and there is no change with this. She does state that the chest pain radiated into her left shoulder. She describes the chest pain is in the left lower ribs. She states she has been nauseous today. She had 1 episode of diarrhea today as well. No fever, chills. She is not coughing. She does report that she has had some chronic pains over the past month. She states it started in her left hip and has now migrated to the medial left thigh and now to the lateral tibial region. She states that she did see her primary care physician and has had x-rays of the left hip which show degenerative changes. She also had a DVT study of the left lower extremity which was normal. Patient also reports that she is on Xarelto chronically for history of atrial fibrillation. [facility] Medical History AVNRT (AV donna re-entry tachycardia) Body mass index (BMI) 35 or more Essential (primary) hypertension History of high risk medication treatment Hyperparathyroidism Hypothyroidism LVH (left ventricular hypertrophy) Mild pulmonary arterial systolic hypertension Obesity Obstructive sleep apnea Pain in left lower leg Paroxysmal atrial fibrillation Thyroid nodule Home Medications levothyroxine 25 mcg tablet 25 mcg PO DAILY thyroid 07/27/16 [History Last Taken 01/25/19 06:00] cholecalciferol (vitamin D3) 50 mcg (2,000 unit) capsule 2,000 unit PO QDAY deficiency 02/02/18 [History Last Taken 01/25/19 08:00] acetaminophen 650 mg tablet,extended release (Tylenol 8 Hour) 650 mg PO QPM 01/15/21 [History Last Taken Unknown] hydrochlorothiazide 25 mg tablet 25 mg PO QDAY HTN #90 tabs 01/15/21 [Rx Last Taken Unknown] Xarelto 20 mg tablet (rivaroxaban) 20 mg PO DAILY #90 tabs 02/18/22 [Rx Last Taken Unknown] lisinopril 5 mg tablet 5 mg PO DAILY #90 tabs 02/18/22 [Rx Last Taken Unknown] flecainide 150 mg tablet 75 mg PO Q12H #90 tabs 02/20/22 [Rx Last Taken Unknown] metoprolol tartrate 25 mg tablet 12.5 mg PO BID #90 tabs 02/20/22 [Rx Last Taken Unknown] allopurinol 300 mg tablet 300 mg PO BID high uric acid 08/26/22 [History Last Taken Unknown] cyanocobalamin (vitamin B-12) 1,000 mcg capsule 1,000 mcg PO DAILY 08/26/22 [History Last Taken Unknown] Allergy/AdvReac Type Severity Reaction Status Date / Time etodolac Allergy Itching Verified 11/17/22 14:01 Penicillins Allergy Hives Verified 11/17/22 14:01 Sulfa (Sulfonamide Allergy Hives Verified 11/17/22 14:01 Antibiotics) Family History Father CVA (cerebral vascular accident) Atrial fibrillation Surgical History History of cardiac radiofrequency ablation (07/2018) History of cardioversion (01/28/19) History of hip replacement History of hysterectomy History of knee replacement History of left heart catheterization (11/20/08) History of right and left heart catheterization (02/04/21) S/P fine needle aspiration (07/2021) Social History Smoking Status: Never smoker ROS ROS ED Constitutional Constitutional ED: Denies chills or fever(s) Eyes Eyes: Denies blurry vision or change in vision ENT ENT ED: Denies ear pain or rhinorrhea Cardiovascular Cardiovascular: Reports as per HPI Respiratory/Chest Respiratory/Chest: Reports dyspnea; Denies cough Gastrointestinal Gastrointestinal: Reports diarrhea and nausea; Denies abdominal pain Genitourinary Genitourinary ED: Denies dysuria or hematuria Musculoskeletal Musculoskeletal: Denies arthralgias or myalgias Integumentary Denies abscess Neurologic Neurologic: Denies headache(s) or paresthesias Psychiatric Psychiatric: Denies anxiety or depression EXAM Physical Exam Const Vital Signs: 11/17/22 14:01 11/17/22 15:05 11/17/22 16:03 Temperature 97.5 F L Temperature Source Temporal Pulse Rate 68 71 Respiratory Rate 14 16 Blood Pressure 169/73 H Blood Pressure Mean 105 Pulse Ox 98 97 97 Oxygen Delivery Method Room Air Room Air Room Air 11/17/22 18:06 Temperature Temperature Source Pulse Rate 60 Respiratory Rate 14 Blood Pressure 137/81 H Blood Pressure Mean 99 Pulse Ox 98 Oxygen Delivery Method Room Air Positive well nourished General Appearance ED: NAD; Negative for pallor HEENT Reports moist mucous membranes normocephalic Eyes PERRL and EOMs intact bilaterally Chest Wall inspection of chest normal Resp normal respiratory effort and clear to auscultation bilaterally Auscultation: Negative for rales, rhonchi or wheezes Cardio regular rate and regular rhythm GI normal to inspection, nondistended, normoactive bowel sounds Extremity normal to inspection Extremity Narrative: Full range of motion of the left hip and the left knee. No deformities. Left lower extremity neurovascular intact brisk cap refill to all 5 toes. DP/PT +2/4. No cords palpated. General Extremety ED: Negative for edema General Extremity: Negative for edema Neuro oriented x3 and CN's II-XII intact bilaterally Sensorium / Orientation: awake and alert Psych mental status grossly normal Skin no rashes or lesions noted General Skin Exam: Negative for jaundice or pallor Heart Score History: Slightly/Non-Suspicious ECG: Normal Age: >/= 65 years Score: 2 MDM MDM MDM Narrative Medical decision making narrative: Patient presenting for evaluation of chest pain. She states that she started having this at about 11 AM today. She reports she has a history of A. fib and is on Xarelto. She has not missed any doses. EKG was obtained on my interpretation this shows sinus bradycardia with a ventricular rate of 59 bpm without signs of ischemic change or dysrhythmia. CBC and lungs BMP are unremarkable. High-sensitivity troponin is 7. Patient with chest pressure for 5 to 6 hours before testing. I have a low suspicion for ACS. I do not believe she needs a repeat troponin. Low suspicion for PE since she is on Xarelto. In regards to her left leg pain. It appears to be musculoskeletal. She is already had a DVT study of the left leg. She is also had x-rays of the left hip. She states that I feel like it still something vascular. I did offer to order refer her to Dr. Olvera. She is amenable to this. She is discharged home in stable condition. Impression: 1. Chest pain 2. Left leg pain Lab Data Attestation: I reviewed the patient's lab results. Labs: Laboratory Results - last 24 hr 11/17/22 11/17/22 Unknown Unknown WBC 7.4 RBC 4.08 L Hgb 12.1 Hct 38.3 MCV 93.9 MCH 29.7 MCHC 31.6 L RDW Std Deviation 48.4 H RDW Coeff of Alonzo 14.0 Plt Count 252 MPV 10.2 Immature Gran % (Auto) 0.400 Neut % (Auto) 74.2 H Lymph % (Auto) 18.0 L [place] % (Auto) 5.6 Eos % (Auto) 1.1 Baso % (Auto) 0.7 Absolute Neuts (auto) 5.5 Absolute Lymphs (auto) 1.33 Nucleated RBC % 0 Sodium 137 Potassium 3.8 Chloride 102 Carbon Dioxide 26.0 Anion Gap 9 BUN 17 Creatinine 0.72 Estim Creat Clear Calc 48.72 Est GFR (MDRD) Af Amer 102 Est GFR (MDRD) Non-Af 84 BUN/Creatinine Ratio 23.5 H Glucose 102 Calcium 9.4 Troponin I High Sens 7 Radiography Diagnostic Testing: Clinical Impression(s) from Imaging Studies Chest X-Ray 11/17/22 15:05 IMPRESSION: Poor inspiration with some bibasilar atelectasis per Electronically Signed: Reyes Rueda MD at 16:37 EST , Discharge Plan Triage Chief Complaint: Chest Pain ED Provider: Ez Sr Dx/Rx/DC Orders Instructions: ED Chest Pain, Noncardiac Prescriptions: No Action cholecalciferol (vitamin D3) 2,000 unit capsule 2,000 unit PO QDAY hydrochlorothiazide 25 mg tablet 25 mg PO QDAY Qty: 90 3RF acetaminophen [Tylenol 8 Hour] 650 mg tablet extended release 650 mg PO QPM cyanocobalamin (vitamin B-12) 1,000 mcg capsule 1,000 mcg PO DAILY levothyroxine 25 MCG tablet 25 mcg PO DAILY allopurinol 300 mg tablet 300 mg PO BID lisinopril 5 mg tablet 5 mg PO DAILY Qty: 90 3RF Xarelto 20 mg tablet 20 mg PO DAILY Qty: 90 3RF flecainide 150 mg tablet 75 mg PO Q12H Qty: 90 3RF metoprolol tartrate 25 mg tablet 12.5 mg PO BID Qty: 90 3RF Rx Instructions: 25 MG, 1/2 Tablet PO BID Primary Care Provider: Cholo Au Referrals: Dev Olvera MD [Med Staff - Active Staff] - 3-5 Days Cholo Au MD [Primary Care Provider] - Disposition Disposition: Home, Self Care
[2022-11-17 16:46] LABS: Anion Gap 9 (5-15); BUN 17 mg/dL (7-18); BUN/Creat Ratio 23.5 RATIO (10-20); Calcium,Total 9.4 mg/dL (8.5-10.1); Chloride 102 mmol/L (98-107); Creatinine, Serum 0.72 mg/dL (0.55-1.02); EST Glomerular Filtration Rate 84 mL/min (>60); Est Glom Filt Rate - Afr Amer 102 mL/min (>60); Estimated Creatinine Clearance 48.72 ml/min; Glucose 102 mg/dL (74-106); Potassium 3.8 mmol/L (3.5-5.1); Sodium Level 137 mmol/L (136-145); Troponin-I HS 7 pg/mL (3.0-54.0)
[2022-11-17 18:06] VITALS: BP 137/81; PULSE 60; RESP 14; O2SAT 98
[2022-11-17 18:58] VITALS: BP 134/74; PULSE 81; RESP 16; O2SAT 99
== END 2022-11-17 18:59 | disposition home or self-care (01) ==
PROVIDERS: Emergency Provider Student in an Organized Health Care Education/Training Program; PCP Family Medicine; Visit Provider Student in an Organized Health Care Education/Training Program
DX: R07.9 Chest pain, unspecified (principal); I48.0 Paroxysmal atrial fibrillation; M79.605 Pain in left leg; R19.7 Diarrhea, unspecified; R11.0 Nausea; G89.29 Other chronic pain; Z79.890 Hormone replacement therapy; Z79.899 Other long term (current) drug therapy; Z79.01 Long term (current) use of anticoagulants; I10 Essential (primary) hypertension; E03.9 Hypothyroidism, unspecified; E66.9 Obesity, unspecified; G47.33 Obstructive sleep apnea (adult) (pediatric)
CPT/HCPCS: 71045; 80048; 84484; 85025; 93005; 99284; A4216

== ENCOUNTER 2022-12-24 10:30 | Outpatient (RCR) | payer MEDICARE, OTHER, SELFPAY ==
--- NOTE | 2022-12-01 09:02 | HP.PTEVAL ---
Patient's Visit Information KATELYNN CALABRESE is a 72 year old F referred to Physical Therapy by HEAVEN CARSON with a diagnosis of L Trochanteric Bursitis/IT band syndrome. Date of Evaluation: 12/01/22 Physical Therapist: HORTENSIA Mack - Visit Plan Frequency: 2x /Week Duration: 2 Months Plan: ++Pt has h/o R THR and B TKR++. 2X/ week for manual foam rolling of L IT band, stretches of L piriformis, strengthening of B gluts and hip abductors, B DF and PF strength, work on heel strike with gait and increase hip ext with gait with HEP and US as needed to the L hip. HEP: standing and seated heel and toe raises, seated L piriformis stretch, toe crunches. Pt also works with [employer] and AT 3X/ week - Subjective Pt reports that in the fall she had some kind of hematoma behind the L knee and it was bruised. It went away. About 6 weeks later she had pain in the medial HS area.. no blood clot. Then she started to have L lateral lawton pain and then the L hip started to bother her right around Thanksgiving. She reports that she does not have back pain but she reports that she was told that her back looks bad on x-ray. She reports that he back has never been the main issue. She has no N&T except in B feet. She thinks that she has neuropathy but has not tested for it. She does not have DM. She has had a R THR. Her gait is getting worse. She had an x-ray in her L hip and thinks that it is bursitis. She does water exercises 3X/ week and does personal Training a few times a week. She feels that she is trying to address her hip pain but she wants to get it better. The transition from sit to stand is what really bothers her. Stairs: she can but it hurts.. She has to go up on all 4's. She had a fall last spring but there is some balance issues. - Pain L hip pain Pain Intensity (Out of 10): 3 - Objective Gait: Walks with straight knees and no heel strike, valgus at the knees with L knee touching R knee at times, hindfoot eversion, increase lateral translation instead of fw, no hip extension and flexed trunk. - SLUMP TEST B. LE MMT: R hip flex 14.6# and L 11.5#. R knee ext 12.7# and L knee ext 15.6#. R knee flex 12.8# and L knee flex 9.5#. R hip abd 4.8# and L .9#. Pt is unable to do a S/L hip abd ROM on the R. Palpation: Tender L greater trochanter and IT band L. Sit to stand: able without using her arms but needs to rock to get herself forward. Clam Shell: Pt is unable to do it on the R and very little motion on the L. Def weakness present. Tight L hip flexor... R is tight but not as much and did get a cramp in the L Quad. Tight L piriformis and tightness. Standing heel and toe raises using UE pt is able to raise toes and struggles with PF B - Balance/Special Test Scores Lower Extremity Functional Score: 32 - Goals Goal 1:: I HEP Goal Time Frame: 8-12 Weeks Goal 2:: Be able to walk with more heel to toe gait pattern Goal Time Frame: 8-12 Weeks Goal 3:: Decrease L hip pain with gait and sit to stand transitions to less than 3/10 pain Goal Time Frame: 8-12 Weeks Goal 4:: Increase LE MMT (at time of the eval: R hip flex 14.6# and L 11.5#. R knee ext 12.7# and L knee ext 15.6#. R knee flex 12.8# and L knee flex 9.5#. R hip abd 4.8# and L .9#) Goal Time Frame: 8-12 Weeks Goal 5:: Be able to sit to stand without UE support with ease Goal Time Frame: 8-12 Weeks - Rehabilitation Potential Rehabilitation Potential: Good - Anticipated Interventions Patient/Client Instruction: Educate patient on: Condition, Plan of Care For the Purpose of:: To decrease pain, To increase ROM, To improve nutrient delivery to tissue, To improve muscle performance and motor function, To improve ability to perform ADL's, To increase tolerance to activity/condition/position, To improve performance and independence with ADL's, To decrease level of supervision to perform tasks, To improve ability of physical actions for home/community/work/leisure, To improve gait and locomotor functions, To improve health of tissue, To decrease soft tissue restriction, To improve endurance, To improve balance, To improve safety with gait Therapeutic Exercise to Include: Strength training, Endurance training, Balance training, Postural training, Flexibilty training, Gait and locomotor training, Neuromotor development, Active ROM, Dynamic Lumbar Stabilization For the Purpose of:: To decrease pain, To increase ROM, To improve nutrient delivery to tissue, To improve muscle performance and motor function, To improve ability to perform ADL's, To increase tolerance to activity/condition/position, To improve performance and independence with ADL's, To decrease level of supervision to perform tasks, To improve ability of physical actions for home/community/work/leisure, To improve gait and locomotor functions, To improve health of tissue, To decrease soft tissue restriction, To increase flexibility/ROM, To improve balance, To improve safety with gait Functional Training to Include: Gait training For the Purpose of:: To improve gait and locomotor functions, To improve safety with gait Manual Therapy Techniques to Include: Passive ROM, Soft tissue mobilization For the Purpose of:: To increase ROM, To improve nutrient delivery to tissue, To improve muscle performance and motor function, To improve ability to perform ADL's, To improve ability of physical actions for home/community/work/leisure, To improve gait and locomotor functions, To improve health of tissue, To decrease soft tissue restriction, To increase flexibility/ROM Ultrasound (thermal/non thermal): Yes For the Purpose of:: To decrease pain, To increase ROM, To improve nutrient delivery to tissue, To improve muscle performance and motor function Thank you for the opportunity to evaluate your patient. For Medicare and Medicare HMO plans, please review the plan of care and approve it. It will need to be FAXED BACK to us at [phone] for Medicare purposes. For Medicare only, by signing this I certify the plan of care. Please let me know if there are questions or concerns regarding this plan of care. Physician Signature: Date:
--- NOTE | 2022-12-24 10:59 | HP.PTDCSUM ---
It has been my pleasure to treat KATELYNN CALABRESE referred by HEAVEN CARSON, with the diagnosis of L Trochanteric Bursitis/IT band syndrome for a total of 8 visit(s). Discharge Date: 12/24/22 Please see the following information for a summary of their discharge status. Subjective: Pt has about 1/10 pain. She is so much better. Still feels when she walks but not like what it was. Slight lateral lawton pain when she walks. L hip pain Pain Intensity (Out of 10): 1 % Improvement: 90 Objective/Function: Pt was given Gym exercises sheet with weights and reps. Goal 1:: I HEP Goal 2:: Be able to walk with more heel to toe gait pattern Goal 3:: Decrease L hip pain with gait and sit to stand transitions to less than 3/10 pain Goal 4:: Increase LE MMT (at time of the eval: R hip flex 14.6# and L 11.5#. R knee ext 12.7# and L knee ext 15.6#. R knee flex 12.8# and L knee flex 9.5#. R hip abd 4.8# and L .9#) Goal 5:: Be able to sit to stand without UE support with ease Plan: DC PT to I gym routine Discharge Comments: DC PT to I H&W routine If there are questions or concerns regarding this patient's physical therapy, please feel free to call me at [phone]. Thank you for the referral of this patient. Sincerely, Renée Weller, MPT Balance/Gait/Functional tests - Balance/Special Test Scores Lower Extremity Functional Score: 38
== END 2022-12-24 19:00 | disposition home or self-care (01) ==
LOC: PT 10:30
PROVIDERS: PCP Family Medicine
DX: M70.62 Trochanteric bursitis, left hip (principal)
CPT/HCPCS: 97110; 97161

== ENCOUNTER → 2022-12-30 | Outpatient (CLI) | payer MEDICARE, OTHER, SELFPAY | END | disposition home or self-care (01) | PROVIDERS: PCP Family Medicine; Referring Provider Internal Medicine Cardiovascular Disease; Visit Provider Internal Medicine Cardiovascular Disease | DX: I48.0 Paroxysmal atrial fibrillation (principal); R00.2 Palpitations; R00.1 Bradycardia, unspecified; R00.0 Tachycardia, unspecified | CPT/HCPCS: 93225; 93226 ==

== ENCOUNTER → 2023-08-24 | Outpatient (CLI) | payer MEDICARE, OTHER, SELFPAY ==
--- NOTE | 2023-08-24 11:42 | US_ITS ---
INDICATION: thyroid nodules EXAMINATION: Ultrasound US Thyroid (eg thyroid, parathyroid, parotid) TECHNIQUE: Farr scale and color doppler imaging was performed of the thyroid gland. COMPARISON: August 07, 2022 FINDINGS: RIGHT THYROID LOBE: 1.8 x 4.2 x 1.3 cm. Homogeneous echotexture with normal vascularity. [No thyroid nodules are present. LEFT THYROID LOBE: 1.4 x 3.7 x 1.3 cm. Homogeneous echotexture with normal vascularity. [No thyroid nodules are present. ISTHMUS: 0.2 cm. There is a stable 1.0 x 1.0 x 0.5 cm hypoechoic nodule within the isthmus right of midline. There is no posterior shadowing. There are appear to be calcifications within the nodule that are stable. US/Thyroid IMPRESSION: Stable 1.0 x 1.0 x 0.5 cm isthmus nodule. Electronically Signed: Jazzy Araujo MD at 8:54 EDT ,
== END | disposition home or self-care (01) ==
LOC: US 11:42
PROVIDERS: PCP Family Medicine; Referring Provider Surgery; Visit Provider Surgery
DX: E04.1 Nontoxic single thyroid nodule (principal)
CPT/HCPCS: 76536

== ENCOUNTER 2023-12-12 10:13 | Emergency (ER) | payer MEDICARE, OTHER, SELFPAY ==
[2023-12-12 10:14] VITALS: BP 149/66; PULSE 57; RESP 16; TEMP 35.9; O2SAT 98
--- NOTE | 2023-12-12 10:23 | RAD_ITS ---
STUDY: X-RAY - LEFT SHOULDER REASON FOR EXAM: Female, 73 years old. injury TECHNIQUE: 4 view(s) of the shoulder. COMPARISON: None. FINDINGS: There is severe degenerative arthrosis of the glenohumeral articulation. Normal acromioclavicular joint. Normal acromion. Cortical osteophyte formation is present on both sides of the glenohumeral articulation. A small loose body is seen in the inferior aspect of the joint. Several additional loose bodies are seen in the subcoracoid recess. The soft tissue structures are unremarkable. There is no demonstrated fracture. Normal visualized pulmonary apex. RAD/Shoulder min 2 Views IMPRESSION: Severe DJD Electronically Signed: Alcon Rutledge MD at 10:46 EST ,
--- NOTE | 2023-12-12 10:25 | CT_ITS ---
STUDY: CT BRAIN WITHOUT CONTRAST REASON FOR EXAM: Female, 73 years old.trauma, anticoagulated pt. tripped on the snow and injured left shoulder, hit head- on xarelto RADIATION DOSAGE (If Supplied By Facility): CTDIvol = ( 44.99 ) mGy, DLP = ( 829.85 ) mGycm TECHNIQUE: Transaxial CT imaging of the brain was performed without administration of intravenous contrast material. Individualized dose optimization techniques were used for this CT. COMPARISON: Head CT dated March 05, 2022 FINDINGS: Normal soft tissue structures. Normal calvarium. No demonstrated skull fracture or subdural hemorrhage or midline shift. There is mild cerebral atrophy with widening of the extra-axial spaces and ventricular dilatation. Normal white matter tracts of the cerebral hemispheres. Normal basal ganglia and thalami. Normal brainstem. Normal cerebellum. There is no intracranial hemorrhage. There are no findings of an acute ischemic infarction. Normal visualized paranasal sinuses. CT/Brain/Head without Contrast IMPRESSION: Chronic involutional changes of the brain. Electronically Signed: Alcon Rutledge MD at 11:09 EST ,
--- NOTE | 2023-12-12 10:25 | EX.ED.UPPERE ---
HPI History of Present Illness Chief Complaint: Upper Extremity Injury Informant: patient and spouse/S.O. Onset/Context/Timing Onset: Hours (2) Narrative Narrative: Patient had just walked out with her dog on a leash, into the snow, the dog took off, wrapping the leash around her feet and causing her to fall. She states she fell partially on the sidewalk hitting her left hip, her left shoulder into the ground covered landscaping nearby, and bumped her head on a nearby brick wall as she fell. This is on the left side. No loss of consciousness, no headache, no changes in vision no nausea or vomiting. No bleeding or lacerations. The main pain is at her left shoulder. She is able to stand and walk and states that her hip/buttock where she head is not hurting anymore. She still has no head injury symptoms. She is on Xarelto because of history of atrial fibrillation. [facility] Medical History AVNRT (AV donna re-entry tachycardia) Body mass index (BMI) 35 or more Bradycardia COVID-19 Dyspnea on exertion Essential (primary) hypertension History of high risk medication treatment Hyperparathyroidism Hypothyroidism LVH (left ventricular hypertrophy) Mild pulmonary arterial systolic hypertension Obesity Obstructive sleep apnea Pain in left lower leg Palpitations Paroxysmal atrial fibrillation Tachycardia Thyroid nodule Home Medications levothyroxine 25 mcg tablet 25 mcg PO DAILY thyroid 07/27/16 [History Last Taken 01/25/19 06:00] cholecalciferol (vitamin D3) 50 mcg (2,000 unit) capsule 2,000 unit PO QDAY deficiency 02/02/18 [History Last Taken 01/25/19 08:00] acetaminophen 650 mg tablet,extended release (Tylenol 8 Hour) 650 mg PO QPM 01/15/21 [History Last Taken Unknown] hydrochlorothiazide 25 mg tablet 25 mg PO QDAY HTN #90 tabs 01/15/21 [Rx Last Taken Unknown] allopurinol 300 mg tablet 300 mg PO BID high uric acid 08/26/22 [History Last Taken Unknown] cyanocobalamin (vitamin B-12) 1,000 mcg capsule 1,000 mcg PO DAILY 08/26/22 [History Last Taken Unknown] Xarelto 20 mg tablet (rivaroxaban) 20 mg PO DAILY #90 tabs 01/19/23 [Rx Last Taken Unknown] lisinopril 5 mg tablet See Rx Instructions .Route .COMPLEX #90 tabs 02/16/23 [Rx Last Taken Unknown] metoprolol tartrate 25 mg tablet See Rx Instructions .Route .COMPLEX #90 tabs 02/16/23 [Rx Last Taken Unknown] flecainide 100 mg tablet See Rx Instructions .Route .COMPLEX #180 tabs 12/02/23 [Rx Last Taken Unknown] hydrocodone-acetaminophen 5-325mg 5mg-325mg 0.5 - 1 tab (0.5 - 1 x 5-325 mg) PO Q6H PRN PRN Pain 2 days #3 TABLETS 12/12/23 [Rx Last Taken Unknown] Allergy/AdvReac Type Severity Reaction Status Date / Time Penicillins Allergy Hives Verified 12/12/23 10:24 Sulfa (Sulfonamide Allergy Hives Verified 12/12/23 10:24 Antibiotics) Family History Father CVA (cerebral vascular accident) Atrial fibrillation Surgical History History of cardiac radiofrequency ablation (07/2018) History of cardioversion (01/28/19) History of hip replacement History of hysterectomy History of knee replacement History of left heart catheterization (11/20/08) History of right and left heart catheterization (02/04/21) S/P fine needle aspiration (07/2021) Social History Smoking Status: Never smoker alcohol intake: never substance use type: does not use caffeine: No ROS ROS ED Constitutional Constitutional ED: Denies chills or fever(s) Eyes Eyes: Denies change in vision or diplopia ENT ENT ED: Denies rhinorrhea or sore throat Cardiovascular Cardiovascular: Denies chest pain or palpitations Respiratory/Chest Respiratory/Chest: Denies cough or dyspnea Gastrointestinal Gastrointestinal: Denies abdominal pain, diarrhea, nausea or vomiting Genitourinary Genitourinary ED: Denies dysuria or hematuria Musculoskeletal Musculoskeletal: Reports as per HPI and extremity pain; Denies back pain, difficulty walking or neck pain Integumentary Denies abscess or rash Neurologic Neurologic: Denies headache(s), paresthesias or weakness Psychiatric Psychiatric: Denies anxiety or suicidal thoughts EXAM Physical Exam Const Vital Signs: 12/12/23 10:14 Temperature 96.7 F L Temperature Source Temporal Pulse Rate 57 L Respiratory Rate 16 Blood Pressure 149/66 H Blood Pressure Mean 93 Pulse Ox 98 Positive well nourished, well developed and obese General Appearance ED: well developed and NAD Nutritional Appearance: obese HEENT Reports moist mucous membranes HEENT Narrative: Minor tenderness, normal exam, left lateral parietal occipital scalp. No hematoma, contusion, laceration, crepitance, depression. No Harding sign. No periorbital ecchymosis. No CSF otorhinorrhea. normocephalic and atraumatic Eyes PERRL and EOMs intact bilaterally Neck full ROM and supple Resp normal respiratory effort and clear to auscultation bilaterally Cardio regular rate, regular rhythm and no murmurs GI non-tender and non-distended Auscultation: normoactive bowel sounds Palpation: soft Back/Spine General Back: other FROM Cervical Spine: Negative for cervical spine tenderness Thoracic Spine / Upper Back: Negative for thoracic spinal tenderness Lumbar Spine / Lower Back: Negative for lumbar spinal tenderness Extremity normal to inspection Extremity Narrative: Limited range of motion left shoulder, but able to move all other joints without any pain. Tenderness in the proximal humerus, no tenderness at the acromioclavicular joint or the acromion. No deformity. Able to abduct a little. With regards to the left hip she is able to stand and walk without any pain or symptoms. She has painless full range of motion. There is no tenderness at the greater trochanter, ASIS, ischial tuberosity, over the sacrum or spine. General Extremety ED: Yes tenderness; Negative for edema or pulses abnormal General Extremity: Negative for edema or pulses abnormal Neuro oriented x3, CN's II-XII intact bilaterally and no sensory deficits noted [place] Coma Scale: document GCS findings Spontaneous Obeys Commands Oriented 15 Sensorium / Orientation: awake and alert Motor Exam: strength 5/5 throughout Psych mental status grossly normal Skin no rashes or lesions noted and no wounds MDM MDM MDM Narrative Medical decision making narrative: This patient had very minor head trauma and no objective findings of injury. However she is 73 and anticoagulated, and therefore she does not meet criteria with any clinical rule for observation although it is late morning and I think she could probably observe herself, she was amenable to a head CT to verify she does not have any acute intracranial hemorrhage or extra-axial hemorrhage. I reviewed the images and the report which I agree with, it is negative for any acute intracranial injury. With regards to the left shoulder imagery, 4 views on my interpretation may show possible nondisplaced greater tuberosity fracture, radiology read it is negative. 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 She is amenable to that plan. Discharge Plan Triage Chief Complaint: Upper Extremity Injury ED Provider: Amadou Carcamo Dx/Rx/DC Orders Clinical Impression: Closed head injury without concussion, Anticoagulated, Fall, accidental, Injury of left shoulder Instructions: Understanding a Humerus Fracture, ED Sling Prescriptions: New hydrocodone-acetaminophen [hydrocodone-acetaminophen] 5-325 mg tablet 0.5 - 1 tab PO Q6H PRN PRN (Reason: Pain) 2 Days Qty: 3 0RF No Action cholecalciferol (vitamin D3) 2,000 unit capsule 2,000 unit PO QDAY hydrochlorothiazide 25 mg tablet 25 mg PO QDAY Qty: 90 3RF acetaminophen [Tylenol 8 Hour] 650 mg tablet extended release 650 mg PO QPM cyanocobalamin (vitamin B-12) 1,000 mcg capsule 1,000 mcg PO DAILY levothyroxine 25 MCG tablet 25 mcg PO DAILY allopurinol 300 mg tablet 300 mg PO BID Xarelto 20 mg tablet 20 mg PO DAILY Qty: 90 3RF metoprolol tartrate 25 mg tablet See Rx Instructions .ROUTE .COMPLEX Qty: 90 4RF Dose Instruction: TAKE 1/2 TAB BY MOUTH TWICE DAILY Rx Instructions: TAKE 1/2 TAB BY MOUTH TWICE DAILY lisinopril 5 mg tablet See Rx Instructions .ROUTE .COMPLEX Qty: 90 4RF Dose Instruction: TAKE 1 TABLET BY MOUTH EVERYDAY Rx Instructions: TAKE 1 TABLET BY MOUTH EVERYDAY flecainide 100 mg tablet See Rx Instructions .ROUTE .COMPLEX Qty: 180 3RF Dose Instruction: TAKE 1 TABLET BY MOUTH EVERY 12 HOURS (DOSE INCREASE) Rx Instructions: TAKE 1 TABLET BY MOUTH EVERY 12 HOURS (DOSE INCREASE) Primary Care Provider: Cholo Au Referrals: Anoop Galan DO [Med Staff - Active Staff] - 1-2 Weeks Cholo Au MD [Primary Care Provider] -
--- OUTSIDE RECORDS SUMMARY | 2023-12-12 11:09 | XMS RPT_ITS | CCD ---
Author Name Unknown Address [address] [facility] [address] [place] [address] Organization [facility] Care Team Providers Care Complaint Manager Name Role Phone Jacki ISRAEL, Madhavi Ayoub Unavailable Unavailable Cherie Driver Unavailable Darek, Akhil S Unavailable Chaparro Kothari MD Unavailable Cholo Soriano MD Primary Care Provider Darek, Poplar S Unavailable Chaparro Kothari MD Unavailable Cholo Soriano MD Primary Care Provider Darek, Poplar S Unavailable Chaparro Kothari MD Unavailable Cholo Soraino MD Primary Care Provider Darek ECHEVARRIA Akhil S Unavailable Chaparro Kothari MD Unavailable CHOLO SORIANO A Primary Care Unavailable YVONNE MIKE Referring Unavailable CHOLO SORIANO A Referring Unavailable CHOLO SORIANO A Primary Care Unavailable CHOLO SORIANO A Attending Unavailable CHOLO SORIANO A Primary Care Unavailable ASHLEE, SRINATHIMAN A Referring Unavailable CHRISTIE, CHOLO A Primary Care Unavailable ASHLEE, NARIMAN A Attending Unavailable CHRISTIE, CHOLO A Primary Care Unavailable HCRISTIE, CHOLO A Primary Care Unavailable ALTA MOSER Referring Unavailable CHRISTIE, CHOLO A Primary Care Unavailable CHRISTIE, CHOLO A Primary Care Unavailable ARYAN WILSON Attending Unavailable CHRISTIE, CHOLO A Primary Care Unavailable MAGDA SIMON Referring Unavail able CHOLO SORIANO Primary Care Unavailable MAGAD SIMON Attending Unavail able CHOLO SORIANO Referring Unavailable CHOLO SORIANO Primary Care Unavailable YVONNE MIKE Attending Unavailable CHOLO SORIANO Primary Care Unavailable CHOLO SORIANO Primary Care Unavailable ARYAN WILSON Attending Unavailable RAYAN WILSON Referring Unavailable CHOLO SORIANO Primary Care Unavailable Allergies Allergy Classification Reported Allergen(s) Allergy Type Date of Onset Reaction(s) Facility (2 sources) penicillin drug allergy 2 [facility] Work Phone: (2 sources) Sulfonamides (Antibiotic) drug allergy 2 [facility] Work Phone: [phone] (20 sources) Etodolac; Translations: [ETODOLAC] Drug Allergy 9 [facility] Work Phone: (11 sources) Penicillins; Translations: [PENICILLINS] Propensity to adverse reactions to drug -11-200 5 [facility] Work Phone: (20 sources) Sulfonamides (Antibiotic); Translations: [SULFA (SULFONAMIDE ANTIBIOTICS)] Drug Allergy 200 5 [facility] Work Phone: (20 sources) Penicillins Propensity to adverse reactions to drug 10-11-200 5 [facility] Work Phone: Medications Current Medications Medication Drug Class(es) Dates Sig (Normalized) Sig (Original) ciclopirox 0.0077 mg/mg topical gel (2 sources) Start: 10-26-2023 End: 11-09-2023 Ciclopirox (LOPROX) 0.77 % gel Indications: Fungal toenail infection Apply to affected area two times a day for 14 days. 30 g 0 10/26/2023 11/09/2023 Active Completed/Discontinued Medications Medication Drug Class(es) Dates Sig (Normalized) Sig (Original) acetaminophen 325 mg oral tablet (20 sources) Start: 06-15-2012 End: 09-08-2013 TYLENOL 325 MG TABS as needed ACETAMINOPHEN [id number] Akhil Oswald MD Problems Active Problems Problem Classification Problem Date Documented Date Episodic/Chronic Abdominal pain (2 sources) Right upper quadrant pain; Translations: [Right upper quadrant pain] Episodic Adjustment disorders (20 sources) Reactive depression (situational); Translations: [Adjustment disorder with depressed mood] Onset: 06-07-2014 Chronic Cardiac dysrhythmias (20 sources) Persistent atrial fibrillation; Translations: [Chronic atrial fibrillation] Onset: 09-17-2012 Resolved: 07-23-2016 01-18-2016 Chronic Disorders of lipid metabolism (20 sources) Hypertriglyceridemia; 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] Onset: 12-15-2016 04-03-2021 Chronic Esophageal disorders (20 sources) Gastroesophageal reflux disease without esophagitis; Translations: [Gastro-esophageal reflux disease without esophagitis] 04-03-2021 Chronic Essential hypertension (20 sources) Essential hypertension; Translations: [Essential (primary) hypertension] Onset: 09-24-2010 04-03-2021 Chronic Fracture of upper limb (4 sources) Closed fracture of phalanx of little finger; Translations: [Fracture of unspecified phalanx of right little finger, initial encounter for closed fracture] Onset: 10-28-2023 10-08-2023 Episodic Immunizations and screening for infectious disease (20 sources) Finding related to response to skin test; Translations: [Nonspecific reaction to tuberculin skin test without active tuberculosis] 12-23-2005 Episodic Osteoarthritis (20 sources) Arthritis; Translations: [Unspecified osteoarthritis, unspecified site] Onset: 02-11-2007 04-03-2021 Chronic Other and unspecified benign neoplasm (20 sources) History of polyp of colon; Translations: [Personal history of colonic polyps] 04-03-2021 Episodic Other bone disease and musculoskeletal deformities (20 sources) Disorder of skeletal system; Translations: [Disorder of bone, unspecified] 09-02-2005 Episodic Other bone disease and musculoskeletal deformities (20 sources) Osteopenia; Translations: [Other specified disorders of bone density and structure, unspecified site] 04-03-2021 Episodic Other circulatory disease (2 sources) Disorder of carotid artery; Translations: [Occlusion and stenosis of unspecified carotid artery] Onset: 09-17-2012 09-17-2012 Chronic Other circulatory disease (1 source) Other specified symptoms and signs involving the circulatory and respiratory systems; Translations: [Other specified symptoms and signs involving the circulatory and respiratory systems] Onset: 11-26-2023 Episodic Other connective tissue disease (3 sources) Pain in left lower limb; Translations: [Pain in left leg] Onset: 03-24-2016 03-24-2016 Episodic Other connective tissue disease (1 source) Trochanteric bursitis of right hip; Translations: [Trochanteric bursitis, right hip] Episodic Other connective tissue disease (3 sources) Pain in both feet; Translations: [Pain in right foot] Episodic Other connective tissue disease (1 source) Trochanteric bursitis of left hip; Translations: [Trochanteric bursitis, left hip] Episodic Other connective tissue disease (1 source) Pain in right hand; Translations: [Pain in right hand] 10-08-2023 Episodic Other connective tissue disease (1 source) Pain in right hand; Translations: [Hand pain, right] Onset: 10-08-2023 Episodic Other endocrine disorders (20 sources) Hyperparathyroidism; Translations: [Hyperparathyroidism, unspecified] Onset: 07-25-2015 07-25-2015 Chronic Other endocrine disorders (1 source) Hyperparathyroidism, unspecified; Translations: [Hyperparathyroidism (HCC)] Onset: 10-15-2022 Chronic Other fractures (1 source) Closed fracture of one rib; Translations: [Fracture of one rib, right side, subsequent encounter for fracture with routine healing] Episodic Other injuries and conditions due to external causes (1 source) Contusion; Translations: [Other injury of unspecified body region, initial encounter] Episodic Other lower respiratory disease (1 source) Cough; Translations: [Acute cough] Episodic Other nervous system disorders (1 source) Neuropathy; Translations: [Polyneuropathy, unspecified] Chronic Other nervous system disorders (1 source) Polyneuropathy, unspecified; Translations: [Neuropathy] Onset: 11-26-2023 Chronic Other nervous system disorders (2 sources) Limping; Translations: [Other abnormalities of gait and mobility] Episodic Other non-traumatic joint disorders (1 source) Pain in right hip joint; Translations: [Pain in right hip] Episodic Other nutritional; endocrine; and metabolic disorders (4 sources) Body mass index (BMI) 40.0-44.9, adult; Translations: [Body mass index (BMI) 45.0-49.9, adult] Onset: 09-08-2013 09-08-2013 Chronic Other nutritional; endocrine; and metabolic disorders (1 source) Body mass index (BMI) 45.0-49.9, adult; Translations: [Body mass index (BMI) 45.0-49.9, adult] Onset: 09-08-2013 01-18-2016 Chronic Other nutritional; endocrine; and metabolic disorders (4 sources) Morbid obesity; Translations: [Morbid (severe) obesity due to excess calories] Onset: 07-03-2016 04-03-2021 Chronic Other nutritional; endocrine; and metabolic disorders (20 sources) Gilbert's syndrome; 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] Onset: 11-13-2021 11-13-2021 Chronic Other nutritional; endocrine; and metabolic disorders (20 sources) Obese class II; Translations: [Obesity, unspecified] Onset: 07-03-2016 Chronic Other nutritional; endocrine; and metabolic disorders (1 source) Gilbert syndrome; 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] Onset: 04-11-2022 Chronic Other screening for suspected conditions (not mental disorders or infectious disease) (7 sources) Abnormal result of cardiovascular function study, unspecified; Translations: [Patient encounter status] Onset: 06-10-2012 Resolved: 01-17-2016 01-17-2016 Episodic Pulmonary heart disease (2 sources) Pulmonary hypertension; Translations: [Pulmonary hypertension, unspecified] Chronic Residual codes; unclassified (1 source) Other specified personal risk factors, not elsewhere classified; Translations: [Other specified personal history presenting hazards to health] Episodic Spondylosis; intervertebral disc disorders; other back problems (20 sources) Degeneration of lumbar intervertebral disc; Translations: [Other intervertebral disc degeneration, lumbar region] Onset: 04-15-2017 04-03-2021 Chronic Thyroid disorders (20 sources) Acquired hypothyroidism; Translations: [Hypothyroidism, unspecified] Onset: 07-16-2016 04-03-2021 Chronic Unclassified (20 sources) Obstructive sleep apnea syndrome; Translations: [Obstructive sleep apnea (adult) (pediatric)] Onset: 07-25-2015 07-25-2015 Chronic Past or Other Problems Problem Classification Problem Date Documented Date Episodic/Chronic Abdominal hernia (20 sources) Diaphragmatic hernia; Translations: [Diaphragmatic hernia without obstruction or gangrene] Onset: 05-20-2011 04-03-2021 Episodic Administrative/social admission (20 sources) Advance directive discussed with patient; Translations: [Other specified counseling] Onset: 04-11-2022 Episodic Nonspecific chest pain (4 sources) Precordial pain; Translations: [Precordial pain] Onset: 06-10-2012 Resolved: 01-17-2016 06-10-2012 Episodic Nutritional deficiencies (20 sources) Serum vitamin B12 low; Translations: [Deficiency of other specified B group vitamins] Onset: 04-08-2021 04-08-2021 Episodic Other aftercare (20 sources) Long-term current use of anticoagulant; Translations: [joint terminal attack controller (current) use of anticoagulants] Onset: 03-25-2016 03-25-2016 Episodic Other aftercare (20 sources) Patient encounter status; Translations: [Other equipment operator intermodal yard (current) drug therapy] Onset: 04-03-2021 04-03-2021 Episodic Other circulatory disease (6 sources) H/O: pulmonary embolus; Translations: [Abnormal result of cardiovascular function study, unspecified] Onset: 06-10-2012 Resolved: 07-31-2016 07-23-2016 Episodic Other diseases of kidney and ureters (20 sources) Cyst of kidney; Translations: [Cyst of kidney, acquired] Onset: 11-26-2021 11-26-2021 Episodic Other fractures (3 sources) Compression fracture of lumbar spine; Translations: [Wedge compression fracture of unspecified lumbar vertebra, initial encounter for closed fracture] Onset: 04-15-2017 04-03-2021 Episodic Other infections; including parasitic (15 sources) Personal history of other infectious and parasitic diseases; Translations: [History of COVID-19] Onset: 09-19-2022 04-24-2023 Episodic Other lower respiratory disease (2 sources) Dyspnea; Translations: [Shortness of breath] Onset: 09-03-2016 09-03-2016 Episodic Other lower respiratory disease (20 sources) Multiple nodules of lung; Translations: [Other nonspecific abnormal finding of lung field] Onset: 08-24-2018 04-03-2021 Episodic Other lower respiratory disease (1 source) Solitary pulmonary nodule; Translations: [Lung nodule] Onset: 05-06-2023 Episodic Other nutritional; endocrine; and metabolic disorders (20 sources) Hyperuricemia; Translations: [Hyperuricemia without signs of inflammatory arthritis and tophaceous disease] Onset: 06-06-2013 04-03-2021 Episodic Other nutritional; endocrine; and metabolic disorders (1 source) Hyperuricemia without signs of inflammatory arthritis and tophaceous disease; Translations: [Hyperuricemia] Onset: 04-03-2021 Episodic Residual codes; unclassified (20 sources) H/O: atrial fibrillation; Translations: [Other specified postprocedural states] Onset: 06-24-2017 04-03-2021 Episodic Residual codes; unclassified (20 sources) Active living will ; Translations: [Other specified health status] Onset: 04-11-2022 Episodic Viral infection (11 sources) Disease caused by 2019-nCoV; Translations: [COVID-19] Onset: 09-19-2022 09-19-2022 Episodic Results Test Name Value Interpretation Reference Range Facil ity Vital Signs Date Time Vital Sign Value Performing Clinician Facility 10-13-2023 08:06-0500 Body weight 116.12 kg Magda Pina MD Work Phone: [facility] 10-13-2023 08:06-0500 Diastolic blood pressure 82 mm[Hg] Magda Pina MD Work Phone: [facility] 10-13-2023 08:06-0500 Systolic blood pressure 126 mm[Hg] Magda Pina MD Work Phone: [facility] 10-08-2023 12:48-0500 Body temperature 97 [degF] Alta Moser OPEN WINDER.ASSOCIATE TECHNICIAN Work Phone: [facility] 10-08-2023 12:48-0500 Body weight 118.84 kg Alta Moser OPEN WINDER.ASSOCIATE TECHNICIAN Work Phone: [facility] 10-08-2023 12:48-0500 Diastolic blood pressure 62 mm[Hg] Alta Moser OPEN WINDER.ASSOCIATE TECHNICIAN Work Phone: [facility] 10-08-2023 12:48-0500 Heart rate 56 /min Alta Moser OPEN WINDER.ASSOCIATE TECHNICIAN Work Phone: [facility] 10-08-2023 12:48-0500 Respiratory rate 16 /min Alta Moser OPEN WINDER.ASSOCIATE TECHNICIAN Work Phone: [facility] 10-08-2023 12:48-0500 SaO2% (BldA) [Mass fraction] 98 % Alta Moser OPEN WINDER.ASSOCIATE TECHNICIAN Work Phone: [facility] 10-08-2023 12:48-0500 Systolic blood pressure 118 mm[Hg] Alta Moser OPEN WINDER.ASSOCIATE TECHNICIAN Work Phone: [facility] 05-19-2023 10:41-0400 Body height 171.5 cm Natalia Wood MD Work Phone: [facility] 05-19-2023 10:41-0400 Body weight 117.94 kg Natalia Wood MD Work Phone: [facility] 05-19-2023 10:41-0400 Diastolic blood pressure 66 mm[Hg] Natalia Wood MD Work Phone: [facility] 05-19-2023 10:41-0400 Heart rate 53 /min Natalia Wood MD Work Phone: [facility] 05-19-2023 10:41-0400 SaO2% (BldA) [Mass fraction] 98 % Natalia Wood MD Work Phone: [facility] 05-19-2023 10:41-0400 Systolic blood pressure 128 mm[Hg] Natalia Wood MD Work Phone: [facility] 04-24-2023 07:56-0400 Body height 171.5 cm Cholo Soriano MD Work Phone: [facility] 04-24-2023 07:56-0400 Body weight 116.57 kg Cholo Soriano MD Work Phone: [facility] 04-24-2023 07:56-0400 Diastolic blood pressure 64 mm[Hg] Cholo Soriano MD Work Phone: [facility] 04-24-2023 07:56-0400 Heart rate 54 /min Cholo Soriano MD Work Phone: [facility] 04-24-2023 07:56-0400 Systolic blood pressure 116 mm[Hg] Cholo Soriano MD Work Phone: [facility] 10-20-2022 08:54-0500 Body weight 117.94 kg Magda Pina MD Work Phone: [facility] 10-20-2022 08:54-0500 Diastolic blood pressure 74 mm[Hg] Magda Pina MD Work Phone: [facility] 10-20-2022 08:54-0500 Systolic blood pressure 126 mm[Hg] Magda Pina MD Work Phone: [facility] 10-15-2022 11:34-0500 Body weight 117.03 kg Cholo Soriano MD Work Phone: [facility] 10-15-2022 11:34-0500 Diastolic blood pressure 78 mm[Hg] Cholo Soriano MD Work Phone: [facility] 10-15-2022 11:34-0500 Heart rate 58 /min Cholo Sroiano MD Work Phone: [facility] 10-15-2022 11:34-0500 Respiratory rate 16 /min Cholo Soriano MD Work Phone: [facility] 10-15-2022 11:34-0500 Systolic blood pressure 122 mm[Hg] Cholo Soriano MD Work Phone: [facility] 09-18-2022 11:51-0400 Body temperature 100.51 [degF] Bia Bruno APRN.ASSOCIATE TECHNICIAN Work Phone: [facility] 09-18-2022 11:51-0400 Body weight 117.94 kg Bia Bruno APRN.ASSOCIATE TECHNICIAN Work Phone: [facility] 09-18-2022 11:51-0400 Diastolic blood pressure 82 mm[Hg] Bia Bruno APRN.ASSOCIATE TECHNICIAN Work Phone: [facility] 09-18-2022 11:51-0400 Heart rate 82 /min Bia Bruno APRN.ASSOCIATE TECHNICIAN Work Phone: [facility] 09-18-2022 11:51-0400 Respiratory rate 21 /min Bia Bruno APRN.ASSOCIATE TECHNICIAN Work Phone: [facility] 09-18-2022 11:51-0400 SaO2% (BldA) [Mass fraction] 99 % Bia Bruno APRN.ASSOCIATE TECHNICIAN Work Phone: [facility] 09-18-2022 11:51-0400 Systolic blood pressure 150 mm[Hg] Bia Bruno APRN.ASSOCIATE TECHNICIAN Work Phone: [facility] 08-29-2022 15:05-0400 Body temperature 98.01 [degF] Bia Bruno APRN.ASSOCIATE TECHNICIAN Work Phone: [facility] 08-29-2022 15:05-0400 Body weight 118.93 kg Bia Bruno APRN.ASSOCIATE TECHNICIAN Work Phone: [facility] 08-29-2022 15:05-0400 Diastolic blood pressure 84 mm[Hg] Bia Bruno APRN.ASSOCIATE TECHNICIAN Work Phone: [facility] 08-29-2022 15:05-0400 Heart rate 85 /min Bia Bruno APRN.ASSOCIATE TECHNICIAN Work Phone: [facility] 08-29-2022 15:05-0400 Respiratory rate 18 /min Bia Bruno APRN.ASSOCIATE TECHNICIAN Work Phone: [facility] 08-29-2022 15:05-0400 SaO2% (BldA) [Mass fraction] 98 % Bia Bruno APRN.ASSOCIATE TECHNICIAN Work Phone: [facility] 08-29-2022 15:05-0400 Systolic blood pressure 138 mm[Hg] Bia Bruno APRN.ASSOCIATE TECHNICIAN Work Phone: [facility] 05-07-2022 09:22-0400 Body height 170.2 cm Natalia Wood MD Work Phone: [facility] 05-07-2022 09:22-0400 Body weight 117.94 kg Natalia Wood MD Work Phone: [facility] 05-07-2022 09:22-0400 Diastolic blood pressure 70 mm[Hg] Natalia Wood MD Work Phone: [facility] 05-07-2022 09:22-0400 Heart rate 54 /min Natalia Wood MD Work Phone: [facility] 05-07-2022 09:22-0400 SaO2% (BldA) [Mass fraction] 97 % Natalia Wood MD Work Phone: [facility] 05-07-2022 09:22-0400 Systolic blood pressure 114 mm[Hg] Natalia Wood MD Work Phone: [facility] 04-11-2022 07:58-0400 Body height 173 cm Cholo Soriano MD Work Phone: [facility] 04-11-2022 07:58-0400 Body weight 119.3 kg Cholo Soriano MD Work Phone: [facility] 04-11-2022 07:58-0400 Diastolic blood pressure 68 mm[Hg] Cholo Soriano MD Work Phone: [facility] 04-11-2022 07:58-0400 Heart rate 60 /min Cholo Soriano MD Work Phone: [facility] 04-11-2022 07:58-0400 Respiratory rate 16 /min Cholo Soriano MD Work Phone: [facility] 04-11-2022 07:58-0400 SaO2% (BldA) [Mass fraction] 98 % Cholo Soriano MD Work Phone: [facility] 04-11-2022 07:58-0400 Systolic blood pressure 122 mm[Hg] Cholo Soriano MD Work Phone: [facility] 08-06-2017 09:41-0400 BMI (Body Mass Index) 43.22 kg/m2 [facility] Work Phone: 08-06-2017 09:41-0400 BP Diastolic 80 mm[Hg] [facility] Work Phone: 08-06-2017 09:41-0400 BP Systolic 122 mm[Hg] [facility] Work Phone: 08-06-2017 09:41-0400 Height 170.18 cm [facility] Work Phone: 08-06-2017 09:41-0400 Pulse (Heart Rate) 80 /min [facility] Work Phone: 08-06-2017 09:41-0400 Respiratory Rate 20 /min [facility] Work Phone: 08-06-2017 09:41-0400 Weight 125.19 kg [facility] Work Phone: 02-06-2017 08:11-0400 BMI (Body Mass Index) 44.32 kg/m2 Madhavi Echeverria RN [facility] Work Phone: 02-06-2017 08:11-0400 BP Diastolic 62 mm[Hg] Madhavi Echeverria RN [facility] Work Phone: 02-06-2017 08:11-0400 BP Systolic 130 mm[Hg] Madhavi Echeverria RN [facility] Work Phone: 02-06-2017 08:11-0400 Height 170.18 cm Madhavi Echeverria RN [facility] Work Phone: 02-06-2017 08:11-0400 Pulse (Heart Rate) 46 /min Madhavi Echeverria RN [facility] Work Phone: 02-06-2017 08:11-0400 Respiratory Rate 18 /min Madhavi Echeverria RN [facility] Work Phone: 02-06-2017 08:11-0400 Weight 128.37 kg Madhavi Echeverria RN [facility] Work Phone: 11-10-2016 09:03-0500 Heart rate 78 /min Cherie Driver [facility] Work Phone: 07-31-2016 09:24-0400 BSA (Body Surface Area) 2.33 m2 Madhavi Echeverria RN [facility] Work Phone: 07-31-2016 09:24-0400 Pulse Oximetry 98 % Madhavi Echeverria RN [facility] Work Phone: Encounters Encounter Date Encounter Type Care Provider Facility Start: 11-26-2023 End: 11-26-2023 ambulatory CHOLO SORIANO Facility:[facility] Start: 10-28-2023 End: 10-28-2023 ambulatory CHOLO SORIANO Facility:[facility] Start: 10-28-2023 End: 10-28-2023 Subsequent hospital visit by physician Jess [facility] Juanito Zain Work Phone: Radiology Procedures Date Procedure Procedure Detail Performing Clinician Start: 10-13-2023 Lipid 1995 panel - S alis or Plasma Magda Pina MD Work Phone: Start: 10-12-2023 Screening digital br east tomosynthesis bi Magda Pina MD Work Phone: Start: 04-14-2023 Lipid 1996 panel - S alis or Plasma Magda Pina MD Work Phone: Start: 10-10-2022 BEBETO SCREENING W KAI Junior MD Work Phone: Start: 10-10-2022 Mammography Mammograph y Coordinator Start: 05-19-2022 Radex foot complete minimum 3 views Fabio Briscoe Work Phone: Start: 05-05-2022 Ct thorax w/o contra st material Natalia Wood MD Work Phone: Start: 04-28-2022 Us retroperitoneal r eal time w/image complete Cholo Soriano MD Work Phone: Start: 04-11-2022 Adult depression scr eening assessment Cholo Soriano MD Work Phone: Start: 02-25-2022 Radiologic examinati on pelvis 1/2 views Aiden Lees APRN.ASSOCIATE TECHNICIAN Work Phone: Start: 10-04-2021 Mammography Eber aleman MD Work Phone: Start: 04-01-2021 Adult depression scr eening assessment Eber Moore MD Work Phone: Start: 04-11-2019 Colonoscopy Eber aleman MD Work Phone: Start: 02-06-2017 End: 02-06-2017 LUIS Oswald MD Start: 02-06-2017 End: 02-06-2017 Follow Up Appt 6 months Edwin Oviedo Start: 02-06-2017 End: 02-06-2017 Dietary management education, guidance, and counseling Cherie Driver Start: 02-06-2017 End: 02-06-2017 LUIS Oswald MD Start: 02-06-2017 End: 02-06-2017 Follow Up Appt 6 months Edwin Oviedo Start: 11-10-2016 End: 02-04-2017 Ecg routine ecg w/least 12 lds w/i&r Akhil Oswald MD Start: 11-10-2016 End: 02-04-2017 Electrocardiogram, complete Akhil Patterson i, MD Start: 09-04-2016 End: 09-04-2016 Follow Up BP Check Akhil Oswald MD Start: 09-04-2016 End: 10-31-2016 Natriuretic peptide B [Mass/volume] in Blood Akhil Oswald MD Start: 09-04-2016 End: 10-31-2016 BNP Akhil Oswald MD Start: 09-04-2016 End: 09-04-2016 Follow Up BP Check Akhil Oswald MD Start: 07-31-2016 End: 07-31-2016 MIX HOUSE TENDER Akhil Oswald MD Start: 07-31-2016 End: 07-31-2016 Follow Up Appt 6 months Edwin Oviedo Start: 07-31-2016 End: 07-31-2016 MIX HOUSE TENDERKaren Oswald MD Start: 07-31-2016 End: 07-31-2016 Follow Up Appt 6 months Edwin Oviedo Start: 04-22-2016 End: 04-22-2016 Follow Up Appt 3 months Edwin Oviedo Start: 04-22-2016 End: 04-22-2016 MMM Akhil Oswald MD Start: 04-22-2016 End: 04-22-2016 Follow Up Appt 3 months Edwin Oviedo Start: 04-22-2016 End: 04-22-2016 FRANCESCO Oswald MD Start: 03-25-2016 End: 07-23-2016 Venous doppler Akhil Oswald MD Start: 03-25-2016 End: 07-23-2016 Venous doppler Akhil Oswald MD Start: 01-18-2016 End: 02-11-2016 Echocardiography Akhil Oswald MD Start: 01-18-2016 End: 01-18-2016 Follow Up Appt 3 months Edwin Oviedo Start: 01-18-2016 End: 01-18-2016 MMEdwin Oswald MD Start: 01-18-2016 End: 02-11-2016 Echocardiography Akhil Oswald MD Start: 01-18-2016 End: 01-18-2016 Follow Up Appt 3 months Edwin Oviedo Start: 01-18-2016 End: 01-18-2016 MMEdwin Oswald MD Start: 07-25-2015 End: 07-25-2015 LUIS Heller PA-C Work Phone: Start: 07-25-2015 End: 07-25-2015 Follow Up Appt 6 months Radhika hodge PA-C Work Phone: Start: 07-25-2015 End: 07-25-2015 LUIS Heller PA-C Work Phone: Start: 07-25-2015 End: 07-25-2015 Follow Up Appt 6 months Radhika hodge PA-C Work Phone: Start: 02-06-2015 End: 02-07-2015 Documentation of current medications Akhil Oswald MD Start: 02-06-2015 End: 07-11-2015 Echocardiography Akhil Oswald MD Start: 02-06-2015 End: 02-06-2015 Follow Up Appt 6 months Edwin Oviedo Start: 02-06-2015 End: 02-06-2015 MMM Akhil Oswald MD Start: 02-06-2015 End: 02-07-2015 Documentation of current medications Akhil Oswald MD Start: 02-06-2015 End: 07-11-2015 Echocardiography Akhil Oswald MD Start: 02-06-2015 End: 02-06-2015 Follow Up Appt 6 months Edwin Oviedo Start: 02-06-2015 End: 02-06-2015 MMM Akhil Oswald MD Start: 09-08-2013 End: 09-08-2013 LUIS Oswald MD Start: 09-08-2013 End: 09-08-2013 Follow Up Appt 1 year Akhil Oswald MD Start: 09-08-2013 End: 09-08-2013 LUIS Oswald MD Start: 09-08-2013 End: 09-08-2013 Follow Up Appt 1 year Akhil Oswald MD Start: 09-17-2012 End: 09-20-2012 *BMP Akhil Oswald MD Start: 09-17-2012 End: 09-20-2012 Carotid duplex Akhil Oswald MD Start: 09-17-2012 End: 07-11-2015 Follow Up Appt 1 year Akhil Oswald MD Start: 09-17-2012 End: 09-20-2012 *BMP Akhil Oswald MD Start: 09-17-2012 End: 09-20-2012 Carotid duplex Akhil Oswald MD Start: 09-17-2012 End: 07-11-2015 Follow Up Appt 1 year Akhil Oswald MD Start: 06-15-2012 End: 06-22-2012 Echocardiography Akhil Oswald MD Start: 06-15-2012 End: 06-15-2012 Follow Up Appt 3 months Edwin Oviedo Start: 06-15-2012 End: 06-22-2012 Echocardiography Akhil Oswald MD Start: 06-15-2012 End: 06-15-2012 Follow Up Appt 3 months Edwin Oviedo Plan of Treatment Date Care Activity Detail Author Start: 09-02-2032 Urine microalbumin profile [facility] Start: 10-13-2028 Lipid 1996 panel - S alis or Plasma Lipid Screening [facility] Start: 04-14-2028 Lipid 1996 panel - S alis or Plasma Lipid Screening [facility] Start: 04-14-2028 LIPID SCREEN LIPID SCREEN [facility] Start: 09-29-2027 LIPID SCREEN LIPID SCREEN [facility] Start: 03-24-2027 LIPID SCREEN LIPID SCREEN [facility] Start: 10-13-2026 Diabetes Screening Diabetes Screenin g [facility] Start: 10-01-2026 LIPID SCREEN LIPID SCREEN [facility] Start: 04-14-2026 DIABETES SCREEN DIABETES SCREEN [facility] Start: 04-14-2026 Diabetes Screening Diabetes Screenin g [facility] Start: 01-12-2026 Urine microalbumin profile DTAP,TDAP,TD (3 - Td or Tdap) [facility] Start: 09-29-2025 DIABETES SCREEN DIABETES SCREEN [facility] Start: 03-24-2025 DIABETES SCREEN DIABETES SCREEN [facility] Start: 10-26-2024 Annual PCP Team [place] Headman ravi Disease Visit Annual PCP Team Chronic Disease Visit [facility] Start: 10-12-2024 Mammography Mammogram Screening [facility] Start: 10-08-2024 BP Controlled (<130/80) BP Con trolled (<130/80) [facility] Start: 10-01-2024 DIABETES SCREEN DIABETES SCREEN [facility] Start: 05-19-2024 BP CONTROLLED (<130/80) BP CON TROLLED (<130/80) [facility] Start: 05-19-2024 End: 06-17-2024 Ct thorax w/o contrast material CT CHEST WO IVCON Radiology Routine Lung nodules Expected: 05/19/2024, Expires: 06/17/2024 [facility] Work Phone: Immunizations Immunization Date Immunization Notes Care Provider Fa cility 09-08-2023 COVID-19 vaccine, ag e 12+ yr, season (PFIZER-BIONTECH) Magda Pina MD Work Phone: [facility] 09-08-2023 influenza (HD-IIV4) vaccine, age 65+ yr, high dose, quadrivalent, PF (FLUZONE HIGH-DOSE) Magda Pina MD Work Phone: [facility] 09-02-2022 influenza, high dose seasonal, preservative-free Cholo Soriano MD Work Phone: [facility] Work Phone: 09-02-2022 tetanus toxoid, redu isis diphtheria toxoid, and acellular pertussis vaccine, adsorbed Cholo Soriano MD Work Phone: [facility] Work Phone: 07-31-2022 COVID-19 booster vaccine, age 18+ yr, bivalent (MODERNA) Cholo Soriano MD Work Phone: [facility] 02-19-2022 COVID-19 original vaccine, age 12+ yr, monovalent (PFIZER-BIONTECH - STOKES TOP) Cholo Soriano MD Work Phone: [facility] 09-04-2021 zoster vaccine recombinant Eber Moore MD Work Phone: [facility] 08-19-2021 COVID-19 vaccine, ag e 12+ yr (PFIZER-BIONTECH - PURPLE TOP) Eber Moore MD Work Phone: [facility] 08-07-2021 influenza, high-dose , quadrivalent vaccine (FLUZONE HIGH DOSE QUADRIVALENT) Eber Moore MD Work Phone: [facility] Work Phone: 05-29-2021 zoster vaccine recombinant Eber Moore MD Work Phone: [facility] 01-16-2021 COVID-19 vaccine, ag e 12+ yr (PFIZER-BIONTECH - PURPLE TOP) Eber Moore MD Work Phone: [facility] 12-26-2020 COVID-19 vaccine, ag e 12+ yr (DeRev-Affinity Edge - PURPLE TOP) Eber Moore MD Work Phone: [facility] 09-10-2020 pneumococcal conjuga te vaccine, 13 valent Eber Moore MD Work Phone: [facility] 08-23-2020 influenza, high dose seasonal, preservative-free Eber Moore MD Work Phone: [facility] 09-07-2019 influenza, high dose seasonal, preservative-free Eber Moore MD Work Phone: [facility] 08-24-2018 influenza, high dose seasonal, preservative-free Eber Moore MD Work Phone: [facility] 08-23-2018 influenza, seasonal, injectable, preservative free Eber Moore MD Work Phone: [facility] Work Phone: 09-02-2017 influenza, high dose seasonal, preservative-free Eber Moore MD Work Phone: [facility] 09-08-2016 influenza, seasonal, injectable Eber Moore MD Work Phone: [facility] 01-12-2016 TD(adult) unspecifie d formulation Eber Moore MD Work Phone: [facility] 01-12-2016 tetanus and diphther ia toxoids, adsorbed, preservative free, for adult use (2 Lf of tetanus toxoid and 2 Lf of diphtheria toxoid) Eber Moore MD Work Phone: [facility] 09-04-2015 influenza virus vacc ine, whole virus Eber Moore MD Work Phone: [facility] 09-04-2015 influenza, high dose seasonal, preservative-free Eber Moore MD Work Phone: [facility] 09-15-2014 influenza, seasonal, injectable Eber Moore MD Work Phone: [facility] 06-28-2014 pneumococcal polysaccharide vaccine, 23 valent Eber Moore MD Work Phone: [facility] 08-01-2013 influenza virus vacc ine, unspecified formulation Eber Moore MD Work Phone: [facility] 08-01-2013 influenza, injectabl e, quadrivalent, preservative free Eber Moore MD Work Phone: [facility] 01-26-2013 hepatitis B vaccine, adult dosage Eber Moore MD Work Phone: [facility] 09-20-2012 influenza virus vacc ine, whole virus Eber Moore MD Work Phone: [facility] 09-20-2012 novel influenza-H1N1 -09, all formulations Eber Moore MD Work Phone: [facility] 09-01-2012 hepatitis B vaccine, adult dosage Eber Moore MD Work Phone: [facility] 07-28-2012 hepatitis B vaccine, adult dosage Eber Moore MD Work Phone: [facility] 05-20-2012 zoster vaccine, live Eber mayen MD Work Phone: [facility] 09-24-2010 influenza virus vacc ine, unspecified formulation Eber Moore MD Work Phone: [facility] Work Phone: 03-15-2009 tetanus toxoid, redu isis diphtheria toxoid, and acellular pertussis vaccine, adsorbed Eber Moore MD Work Phone: [facility] 10-16-2006 influenza virus vacc ine, unspecified formulation Eber Moore MD Work Phone: [facility] Work Phone: Payers Date Payer Category Payer Medicare [id number] 2019 Unknown MMO MMO MEDICARE SUPPLEMENT [id number] 2019-Present [phone] [address] [place] [address] Indemnity [id number] 2019 Unknown MMO MMO MEDICARE SUPPLEMENT [id number] 2019-Present [phone] [place] [address] Indemnity [id number] 2014 Medicare MEDICARE MEDICAR E A AND B [id number] 2014-Present [phone] [address] [address] [place] [address] Medicare [id number] 2014 Medicare MEDICARE MEDICAR E A AND B [id number] 2014-Present [phone] [place] [address] Medicare [id number] 2014 Medicare [id number] Social History Date Type Detail Facility Start: 08-29-2022 Tobacco smoking status NHIS Never sm oked tobacco [facility] Start: 02-03-2022 End: 10-28-2023 Alcohol intake Lifetime non-drinker (finding) [facility] Start: 12-09-2019 End: 11-03-2022 History SDOH Alcohol Frequency 1 [facility] Start: 07-23-2020 End: 11-03-2022 History SDOH Social Connections Phone 4 [facility] Start: 07-23-2020 End: 11-03-2022 History SDOH Social Connections Get Together 2 [facility] Start: 09-16-2019 End: 11-03-2022 History SDOH Social Connections Living 3 [facility] Start: 07-23-2020 Education 17 [facility] Start: 1950 Sex Assigned At Not on file [facility] Start: 02-15-2022 End: 10-22-2022 Exposure to SARS-CoV-2 (event) Not sure [facility] Start: 08-29-2022 Tobacco use and exposure Smoke less tobacco non-user [facility] Start: 10-08-2022 End: 11-03-2022 History SDOH Alcohol Std Drinks 0 [facility] Start: 10-08-2022 History SDOH Physica l Activity MPS 5 [facility] Start: 11-03-2022 End: 05-19-2023 History of Social function [facility] Start: 11-03-2022 End: 05-19-2023 Social connection and isolation panel [facility] Do you belong to any clubs or organizations such as samaritan groups, unions, fraternal or athletic groups, or school groups? Yes [facility] Are you now , , , , never or living with a partner? [facility] How often to you hav e a drink containing alcohol? Never [facility] How many standard dr inks containing alcohol do you have on a typical day? Patient does not drink [facility] How hard is it for y ou to pay for the very basics like food, housing, medical care, and heating Somewhat hard [facility] Do you feel stress - tense, restless, nervous, or anxious, or unable to sleep at night because your mind is troubled all the time - these days [OSQ] Only a little [facility] (I/We) worried wheth er (my/our) food would run out before (I/we) got money to buy more. Never true [facility] At any time in the p ast 12 months, were you homeless or living in jail [including now]? No [facility] Start: 09-06-2019 Gender identity Identifies as female gender (finding) [facility] Goals Date Patient Goal Desired Activity /State Personal health goal Clinical Notes 12-02-2018 to 10-28-2023 Zainab Morataya LPN - 10/27/2023 8:50 AM EST Note Date & Type Note Facility 10-28-2023 Note HNO ID: [id number] Author: Aryan Torres V, DO Service: ? Author Type: Physician Type: Progress Notes Filed: 10/28/2023 1:08 PM Note Text: FRACTURE FOLLOW-UP Ms. Campuzano presents today for her follow-up visit from: right 5th finger fracture She is four weeks post-injury and was last seen three weeks ago. History: her pain intensity is 0/10. The patient denies swelling, warmth, discharge, drainage, fevers, chills, sweats. She reports compliance with therapy, sling/splint/ambulatory device/dressing/wound care, and the use of medications. She reports no change in past medical AND surgical history, medications, allergies, social history, family history and review of systems since last visit, with the exception of the following: None Radiographs: Radiographs today revealed a less obvious fracture line. Otherwise, osseous and soft tissue structures within normal limits. Physical Examination: Right hand shows no significant soft tissue swelling or redness. There is minimal tenderness with palpation over the MCP or PIP. No rotational deformity noted. Sensory neural examination is intact. PROCEDURE: Not applicable Impression: Fracture of the fifth proximal phalanx and fifth middle phalanx right hand with routine healing Plan: Incision out of aluminum splint. Situational jaya taping for protection.. Gentle range of motion and activity. Follow-up in 4 weeks if needed. Aryan Torres DO [facility] 10-28-2023 Note HNO ID: [id number] Author: Agnieszka Werner Ma Service: ? Author Type: ? Type: Progress Notes Filed: 10/28/2023 1:08 PM Note Text: Patient presents with: 4 weeks post fracture right 5th finger AMB ROOMING INTAKE FLOWSHEET DATA Patient states she is continuing to wear finger splint. Only taking it off to shower and when she has a lot of hand writing to do. Denies any pain. X-rays done today. [facility] 10-28-2023 Note HNO ID: [id number] Author: Ilsa Benitez RT(Yani) Service: ? Author Type: Shed Boss Type: Progress Notes Filed: 10/28/2023 12:37 PM Note Text: Radiology Service Progress Note PATIENT NAME: Katelynn Campuzano DATE OF SERVICE: October 28, 2023 TIME: 12:29 PM PATIENT IDENTITY VERIFICATION COMPLETED USING TWO (2) IDENTIFIERS: Name and Date of confirmed by patient verbally. FALL SCREENING: Has the patient had 2 falls in the last year or 1 fall with injury or currently using an Ambulatory Assistive Device (Walker, Cane, Wheelchair, Crutches, etc.)? Yes, Patient High Risk for Falls What interventions were put in place to prevent falls during this visit? Increased Observations by Caregivers PATIENT GENDER DATA: Female. status: : No status: NO. PATIENT RELEVANT IMPLANT DATA REVIEWED: Yes RADIOLOGY DEPARTMENT: General X-ray: Exam(s) Completed: Upper Extremity X-Ray(s): Hand, right PERIPHERAL IV DATA: Not applicable SIGNED BY: RT Olivia(R) October 28, 2023 12:29 PM [facility] 10-27-2023 Note HNO ID: [id number] Author: Zainab Morataya LPN Service: ? Author Type: ? Type: Progress Notes Filed: 10/27/2023 3:55 PM Note Text: Scan on 10/23/2023 5:33 PM by ProviderAspen PA-C: Consultation - Dermatology [facility] 10-27-2023 History of Present illness Narrative Scan on 10/23/2023 5:33 PM by ProviderAspen PA-C: Consultation - Dermatology documented in this encounter [facility] 10-26-2023 Note HNO ID: [id number] Author: Yvonne Mike APRN.ASSOCIATE TECHNICIAN Service: ? Author Type: Nurse Practitioner Type: Progress Notes Filed: 10/26/2023 8:21 AM Note Text: Chief Complaint Patient presents with: Follow Up: 6 month follow up HPI Katelynn Campuzano is a 73 year old female who presents here today for Above Complaints.. Patient presents for routine follow up. Patient reports she recently underwent removal of basal cell carcinoma to her nose. Patient reports she recently fell and broke her right pinky finger. Patient reports she has right sided pain. Patient has had this for sometime and it is not getting worse. Patient has a history of rib fracture in the area of the pain. Patient reports she continues to have worsening numbness and tingling in her feet. Past medical history, appointments, medications, allergies reviewed. Previous Medical History PAST MEDICAL HISTORY Diagnosis Date Acquired hypothyroidism 07/16/2016 Continue home Levothyroxine dose. 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 Essential hypertension 09/24/2010 On Atenolol and HCTZ GERD without esophagitis Gilbert syndrome 11/13/2021 Hip arthritis 07/23/2009 History of cardiac radiofrequency ablation History of COVID-19 09/19/2022 09/18/2022 Hyperlipidemia, mixed 10/04/2021 Hyperuricemia 06/06/[address] 04/11/2022 DPA: Sherman () Low serum vitamin B12 04/08/2021 Lumbar compression fracture (HCC) 04/15/2017 Lumbar degenerative disc disease 04/15/2017 Medicare annual wellness visit, subsequent 04/03/2021 Last Done: 04/03/[address] lung nodules on CT 08/24/2018 Obesity, Class II, BMI 35-39.9 07/03/2016 Obstructive sleep apnea syndrome 06/24/2017 On CPAP at home. 7 cm pressure Oropharyngeal bleeding 06/24/2017 Happened intraop. Unclear etiology. Initial ENT evaluation reportedly did not reveal any clear source of bleeding. Patient received protamine for heparin reversal intraop and was successfully extubated. Plan: No further AC while in the CICU. F/u ENT recommendations.. Continue Dexamethasone to preevent airway edema. Monitored in the ICU and transferred to the [facility]. - discussed with the ENT team, r Osteopenia Paroxysmal atrial fibrillation (HCC) Personal history of colonic polyps Colon polyps S/P ablation of atrial fibrillation 06/24/2017 Date of procedure 06/23/17. Indication: persistent atrial fibrillation. 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 Unspecified hemorrhoids without mention of complication Hemorrhoids Vitamin D deficiency 08/17/2013 Previous Surgical History PAST SURGICAL HISTORY Procedure Laterality Date ARTHROSCOPY KNEE DIAGNOSTIC W/WO SYNOVIAL BX SPX Arthroscopy, knee right ARTHRP ACETBLR/PROX FEM PROSTC AGRFT/ALGRFT 04/08/2010 right hip ARTHRP KNE CONDYLEANDPLATU MEDIALANDLAT COMPARTMENTS 04/14/2007 Knee replacement, total/rt ARTHRP KNE CONDYLEANDPLATU MEDIALANDLAT COMPARTMENTS 1997 Knee replacement, total lt COLONOSCOPY 03/29/2001 Repeat in COLONOSCOPY FLX DX W/COLLJ SPEC WHEN PFRMD 09/28/2014 Colonoscopy COLONOSCOPY FLX DX W/COLLJ SPEC WHEN PFRMD 04/11/2019 Colonoscopy, repeat 5 years EGD 11/06/2003 for c/o chest pain EGD TRANSORAL BIOPSY SINGLE/MULTIPLE 05/20/2011 HEART SURGERY HX LEFT HEART CATH,PERCUTANEOUS LIG/TRNSXJ FLP TUBE ABDL/VAG APPR UNI/BI PAST SURGICAL HISTORY OF cataracts bilateral PAST SURGICAL HISTORY OF 06/23/2017 heart ablation PAST SURGICAL HISTORY OF 08/17/2018 heart ablation VAGINAL HYSTERECTOMY UTERUS 250 GM/< 1992 Hysterectomy, vaginal [fibroids and bleeding[[ Family History FAMILY HISTORY Problem Relation Age of Onset Diabetes Mother Thyroid Mother other (Other) Mother colon polyps - not CA Heart Father other (Other) Brother colon polyps- not CA Cancer Daughter 4 neuroblastoma Patient Allergies ALLERGIES Allergen Reactions Sulfa (Sulfonamide * Hives Penicillins Unknown Current Medications Current Outpatient Medications on File Prior to Visit Medication Sig doxycycline hyclate (VIBRAMYCIN) 100 mg capsule TAKE ONE CAPSULE BY MOUTH TWICE A DAY FOR 7 DAYS WITH FOOD flecainide (TAMBOCOR) 100 mg tablet TAKE 1 TABLET BY MOUTH EVERY 12 HOURS (DOSE INCREASE) hydroCHLOROthiazide 25 mg tablet Take 1 tablet by mouth once daily. levothyroxine (SYNTHROID) 25 mcg tablet Take 1 tablet by mouth daily before breakfast. allopurinol (ZYLOPRIM) 300 mg tablet Take 1 tablet by mouth twice daily. cyanocobalamin (VITAMIN B-12) 1,000 mcg tab Take 1 tablet b (more content not included)... [facility] documented as of this encounter (statuses as of 10/13/2023) [facility]11-21-2023 Miscellaneous Notes* Letter - Coordinator, Mammography - 10/13/2023 3:29 PM EST October 14, 2023 PID: [id number] Katelynn Campuzano [address] [place] [address] Dear Ms. Campzuano, We are pleased to inform you that the results of your recent breast imaging exam on 10/12/2023 are normal. Your mammogram demonstrates that you have dense breast tissue, which could hide abnormalities. Dense breast tissue, in and of itself, is a relatively common condition. Therefore, this information is not provided to cause undue concern; rather, it is to raise your awareness and promote discussion with your health care provider regarding the presence of dense breast tissue in addition to other riskfactors. Early detection of cancer is very important. We also understand recommendations regarding breast cancer screening are controversial. Please discuss with your primary care provider which strategy is best for you and whether a mammogram is right for you. Your imaging studies and report will be kept on file at [facility] as part of your permanent medical record and are available for your continuing care. Thank you for allowing us to help in meeting your health care needs. Sincerely, Dr. Joseph Interpreting Radiologist [facility] (Normal over 40) [facility]23 NoteHNO ID: [id number] Author: Magda Simon MD Service: ? Author Type: Physician Type: Progress Notes Filed: 10/13/2023 9:11 AM Note Text: Nutrition Assistant offered: Patient declines. Rivers is a 73 year old who presents for an annual gynecologic exam without complaints. Broke finger. Postmenopausal: Yes HRT use: No. Last Pap: normal Last mammogram: 2022 pending History of abnormal mammogram: No Sexually active: No History of STDS: None Patient concerns for STD exposure: No. Hot flashes: No Night sweats: No Vaginal dryness: No Exercise: active Diet: balanced OB History T3 L3 SAB0 IAB0 Ectopic0 Multiple0 Live Births0 Comment: one child age 3 Menarche age 9-11 AFB 24 Hysterectomy 44 [employer] History LMP: Hysterectomy Age at Menarche: Age at First : Age at Menopause: [employer] History Comments: Sexual Activity: Not Currently; No partner data on record Contraception: No contraception data on record PAST MEDICAL HISTORY Diagnosis Date Acquired hypothyroidism 07/16/2016 Continue home Levothyroxine dose. 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 Essential hypertension 09/24/2010 On Atenolol and HCTZ GERD without esophagitis Gilbert syndrome 11/13/2021 Hip arthritis 07/23/2009 History of cardiac radiofrequency ablation History of COVID-19 09/19/2022 09/18/2022 Hyperlipidemia, mixed 10/04/2021 Hyperuricemia 06/06/[address] 04/11/2022 DPA: Sherman () Low serum vitamin B12 04/08/2021 Lumbar compression fracture (HCC) 04/15/2017 Lumbar degenerative disc disease 04/15/2017 Medicare annual wellness visit, subsequent 04/03/2021 Last Done: 04/03/20[address] Multiple lung nodules on CT 08/24/2018 Obesity, Class II, BMI 35-39.9 07/03/2016 Obstructive sleep apnea syndrome 06/24/2017 On CPAP at home. 7 cm pressure Oropharyngeal bleeding 06/24/2017 Happened intraop. Unclear etiology. Initial ENT evaluation reportedly did not reveal any clear source of bleeding. Patient received protamine for heparin reversal intraop and was successfully extubated. Plan: No further AC while in the CICU. F/u ENT recommendations.. Continue Dexamethasone to preevent airway edema. Monitored in the ICU and transferred to the [facility]. - discussed with the ENT team, r Osteopenia Paroxysmal atrial fibrillation (HCC) Personal history of colonic polyps Colon polyps S/P ablation of atrial fibrillation 06/24/2017 Date of procedure 06/23/17. Indication: persistent atrial fibrillation. 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 Unspecified hemorrhoids without mention of complication Hemorrhoids Vitamin D deficiency 08/17/2013 PAST SURGICAL HISTORY Procedure Laterality Date ARTHROSCOPY KNEE DIAGNOSTIC W/WO SYNOVIAL BX SPX Arthroscopy, knee right ARTHRP ACETBLR/PROX FEM PROSTC AGRFT/ALGRFT 04/08/2010 right hip ARTHRP KNE CONDYLEANDPLATU MEDIALANDLAT COMPARTMENTS 04/14/2007 Knee replacement, total/rt ARTHRP KNE CONDYLEANDPLATU MEDIALANDLAT COMPARTMENTS 1997 Knee replacement, total lt COLONOSCOPY 03/29/2001 Repeat in COLONOSCOPY FLX DX W/COLLJ SPEC WHEN PFRMD 09/28/2014 Colonoscopy COLONOSCOPY FLX DX W/COLLJ SPEC WHEN PFRMD 04/11/2019 Colonoscopy, repeat 5 years EGD 11/06/2003 for c/o chest pain EGD TRANSORAL BIOPSY SINGLE/MULTIPLE 05/20/2011 HEART SURGERY HX LEFT HEART CATH,PERCUTANEOUS LIG/TRNSXJ FLP TUBE ABDL/VAG APPR UNI/BI PAST SURGICAL HISTORY OF cataracts bilateral PAST SURGICAL HISTORY OF 06/23/2017 heart ablation PAST SURGICAL HISTORY OF 08/17/2018 heart ablation VAGINAL HYSTERECTOMY UTERUS 250 GM/< 1992 Hysterectomy, vaginal [fibroids and bleeding[[ FAMILY HISTORY Problem Relation Age of Onset Diabetes Mother Thyroid Mother other (Other) Mother colon polyps - not CA Heart Father other (Other) Brother colon polyps- not CA Cancer Daughter 4 neuroblastoma SOCIAL HISTORY Social History Tobacco Use Smoking status: Never Smokeless tobacco: Never Vaping Use Vaping Use: Never used Substance Use Topics Alcohol use: Never Drug use: No REVIEW OF SYSTEMS Abdomen: No abdominal pain, nausea, vomiting, diarrhea, or constipation. No bloating, early satiety, indigestion, or increased flatulence. Bladder: No dysuria, Has some urgency and USI- not bothersome at this time. Breast: No breast lumps, nipple d/c, overlying skin changes, redness or skin retraction Allergies and current medication updated:Yes EXAM: BP 126/82 Wt 256 lb (116.1kg) GENERAL: ple (more content not included)...[facility]11-21-2023 History of Present illness Narrative* Magda Simon MD - 10/13/2023 8:05 AM EST Nutrition Assistant offered: Patient declines. Katelynn is a 73 year old who presents for an annual gynecologic exam without complaints. Timothy. Postmenopausal: Yes HRT use: No. Last Pap: normal Last mammogram: 2022 pending History of abnormal mammogram: No Sexually active: No History of STDS: None Patient concerns for STD exposure: No. Hot flashes: No Night sweats: No Vaginal dryness: No Exercise: active Diet: balanced OB History T3 L3 SAB0 IAB0 Ectopic0 Multiple0 Live Births0 Comment: one child age 4 Menarche age 9-11 AFB 24 Hysterectomy 44 [employer] History LMP: Hysterectomy Age at Menarche: Age at First : Age at Menopause: [employer] History Comments: Sexual Activity: Not Currently; No partner data on record Contraception: No contraception data on record PAST MEDICAL HISTORY Diagnosis Date Acquired hypothyroidism 07/16/2016 Continue home Levothyroxine dose. 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 Essential hypertension 09/24/2010 On Atenolol and HCTZ GERD without esophagitis Gilbert syndrome 11/13/2021 Hip arthritis 07/23/2009 History of cardiac radiofrequency ablation History of COVID-19 09/19/2022 09/18/2022 Hyperlipidemia, mixed 10/04/2021 Hyperuricemia 06/06/[address] 04/11/2022 DPA: Sherman () Low serum vitamin B12 04/08/2021 Lumbar compression fracture (HCC) 04/15/2017 Lumbar degenerative disc disease 04/15/2017 Medicare annual wellness visit, subsequent 04/03/2021 Last Done: 04/03/[address] nodules on CT 08/24/2018 Obesity, Class II, BMI 35-39.9 07/03/2016 Obstructive sleep apnea syndrome 06/24/2017 On CPAP at home. 7 cm pressure Oropharyngeal bleeding 06/24/2017 Happened intraop. Unclear etiology. Initial ENT evaluation reportedly did not reveal any clear source of bleeding. Patient received protamine for heparin reversal intraop and was successfully extubated. Plan: No further AC while in the CICU. F/u ENT recommendations.. Continue Dexamethasone to preevent airway edema. Monitored in the ICU and transferred to the [facility]. - discussed with the ENT team, r Osteopenia Paroxysmal atrial fibrillation (HCC) Personal history of colonic polyps Colon polyps S/P ablation of atrial fibrillation 06/24/2017 Date of procedure 06/23/17. Indication: persistent atrial fibrillation. 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 Unspecified hemorrhoids without mention of complication Hemorrhoids Vitamin D deficiency 08/17/2013 PAST SURGICAL HISTORY Procedure Laterality Date ARTHROSCOPY KNEE DIAGNOSTIC W/WO SYNOVIAL BX SPX Arthroscopy, knee right ARTHRP ACETBLR/PROX FEM PROSTC AGRFT/ALGRFT 04/08/2010 right hip ARTHRP KNE CONDYLE&PLATU MEDIAL&LAT COMPARTMENTS 04/14/2007 Knee replacement, total/rt ARTHRP KNE CONDYLE&PLATU MEDIAL&LAT COMPARTMENTS 1998 Knee replacement, total lt COLONOSCOPY 03/29/2001 Repeat in COLONOSCOPY FLX DX W/COLLJ SPEC WHEN PFRMD 09/28/2014 Colonoscopy COLONOSCOPY FLX DX W/COLLJ SPEC WHEN PFRMD 04/11/2019 Colonoscopy, repeat 5 years EGD 11/06/2003 for c/o chest pain EGD TRANSORAL BIOPSY SINGLE/MULTIPLE 05/20/2011 HEART SURGERY HX LEFT HEART CATH,PERCUTANEOUS LIG/TRNSXJ FLP TUBE ABDL/VAG APPR UNI/BI PAST SURGICAL HISTORY OF cataracts bilateral PAST SURGICAL HISTORY OF 06/23/2017 heart ablation PAST SURGICAL HISTORY OF 08/17/2018 heart ablation VAGINAL HYSTERECTOMY UTERUS 250 GM/< 1992 Hysterectomy, vaginal [fibroids and bleeding[[ FAMILY HISTORY Problem Relation Age of Onset Diabetes Mother Thyroid Mother other (Other) Mother colon polyps - not CA Heart Father other (Other) Brother colon polyps- not CA Cancer Daughter 4 neuroblastoma SOCIAL HISTORY Social History Tobacco Use Smoking status: Never Smokeless tobacco: Never Vaping Use Vaping Use: Never used Substance Use Topics Alcohol use: Never Drug use: No REVIEW OF SYSTEMS Abdomen: No abdominal pain, nausea, vomiting, diarrhea, or constipation. No bloating, early satiety, indigestion, or increased flatulence. Bladder: No dysuria, Has some urgency and USI- not bothersome at this time. Breast: No breast lumps, nipple d/c, overlying skin changes, redness or skin retraction Allergies and current medication updated:Yes EXAM: BP 126/82 Wt 256 lb (116.1kg) GENERAL: pleasant, female in no apparent distress HEENT: Normocephalic, atraumatic, mucus membranes moist, and no lesions NECK: Supple, full range of motion, no adenopathy, and thyroid normal DERMATOLOGY: Normal, without lesions, non-icteric, and non-hirsute BREAST: soft, non-tender, symmetric, no dominant mass, normal nipple-areolar complex, no lymphadenopathy, and no nipple discharge ABDOMEN: soft, non-tender, and no masses PELVIC: pt declines BIMANUAL: pt declines RECTOVAGINAL: deferred. NEURO: alert and oriented x3,exam grossly non-focal EXTREMITIES: normal ASSESSMENT/PLAN: 1) Health maintenance: Pap/HPV screening no longer needed Mammogram ordered Mammogram up to date Nutrition, exercise and routine health maintenance exams reviewed. Calcium/Vitamin D supplementation information provided. Colon cancer screening: up to date with screening BMD: ordered 2) Follow up one year or sooner as needed Magda Hanson MD documented [facility]23 NoteHNO ID: [id number] Author: Aniya Khan Mammo Tech Service: ? Author Type: Shed Boss Type: Progress Notes Filed: 10/12/2023 10:48 AM Note Text: Radiology Service Progress Note PATIENT NAME: Katelynn Campuzano DATE OF SERVICE: October 12, 2023 TIME: 10:30 AM PATIENT IDENTITY VERIFICATION COMPLETED USING TWO (2) IDENTIFIERS: Name and Date of confirmed by patient verbally. FALL SCREENING: Has the patient had 2 falls in the last year or 1 fall with injury or currently using an Ambulatory Assistive Device (Walker, Cane, Wheelchair, Crutches, etc.)? No PATIENT GENDER DATA: Female. status: : No status: NO. PATIENT RELEVANT IMPLANT DATA REVIEWED: Not Applicable RADIOLOGY DEPARTMENT: Mammography PERIPHERAL IV DATA: Not applicable SIGNED BY: Avery Hinton October 12, 2023 10:30 [facility]11-20-2023 History of Present illness Narrative* Aniya Khan Mammo Tech - 10/12/2023 9:50 AM EST Radiology Service Progress Note PATIENT NAME: Katelynn Campuzano DATE OF SERVICE: October 12, 2023 TIME: 10:30 AM PATIENT IDENTITY VERIFICATION COMPLETED USING TWO (2) IDENTIFIERS: Name and Date of confirmedby patient verbally. FALL SCREENING: Has the patient had 2 falls in the last year or 1 fall with injury or currently using an Ambulatory Assistive Device (Walker, Cane, Wheelchair, Crutches, etc.)? No PATIENT GENDER DATA: Female. status: : No status: NO. PATIENT RELEVANT IMPLANT DATA REVIEWED: Not Applicable RADIOLOGY DEPARTMENT: Mammography PERIPHERAL IV DATA: Not applicable SIGNED BY: Avery Hinton October 12, 2023 10:30 AM documented in this encounter[facility]11-17-2023 History of Past illness Narrative* Problem Noted Date Diagnosed Date Resolved Date IRB 18-276: [facility] Using [employer] Platform for Chronic Care of Patients with AF after Ablation Procedure- Randomized Study 12/02/2018 05/13/2019 Sciatica of right side 08/11/201701/07 A-fib 06/24/2017 07/06/2017 Lumbar compression fracture 04/15/2017 04/11/2022 Paronychia of finger 05/14/2016 017 Atrial fibrillation, persistent 09/04/2015 12/27/2018 Overview: S/p DCCV Oct 2016 and PV! Jun 23 2017. [id number] risk score: 3. On Flecainide and chronic AC with Rivaroxaban. Plan: Monitor in the CICU Will hold AC for now due to concern for oropharynx bleeding after PVI. Daily ECgs Continue Flecainide F/u EP recs. Vitamin D deficiency 08/17/2013 018 Secondary hyperparathyroidism, non-renal 09/02/2005 01/07/2018 Abdominal pain, left upper quadrant 07/17/2016 Hyperparathyroidism, unspecified 12/22/2006 documented as of this encounter (statuses as of 10/09/2023) [facility] NoteHNO ID: [id number] Author: Aryan Torres V DO Service: ? Author Type: Physician Type: Progress Notes Filed: 10/09/2023 1:30 PM Note Text: SUBJECTIVE: Katelynn Campuzano is a 73 year old female who is here for a right little finger injury. It occurred 10 days ago when she fell on right hand. Symptoms include pain, swelling and bruising of the finger. She was seen in express care, has tried jaya taping. PAST MEDICAL HISTORY Diagnosis Date Acquired hypothyroidism 07/16/2016 Continue home Levothyroxine dose. 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 Essential hypertension 09/24/2010 On Atenolol and HCTZ GERD without esophagitis Gilbert syndrome 11/13/2021 Hip arthritis 07/23/2009 History of cardiac radiofrequency ablation History of COVID-19 09/19/2022 09/18/2022 Hyperlipidemia, mixed 10/04/2021 Hyperuricemia 06/06/[address] 04/11/2022 DPA: Sherman () Low serum vitamin B12 04/08/2021 Lumbar compression fracture (HCC) 04/15/2017 Lumbar degenerative disc disease 04/15/2017 Medicare annual wellness visit, subsequent 04/03/2021 Last Done: 04/03/[address] nodules on CT 08/24/2018 Obesity, Class II, BMI 35-39.9 07/03/2016 Obstructive sleep apnea syndrome 06/24/2017 On CPAP at home. 7 cm pressure Oropharyngeal bleeding 06/24/2017 Happened intraop. Unclear etiology. Initial ENT evaluation reportedly did not reveal any clear source of bleeding. Patient received protamine for heparin reversal intraop and was successfully extubated. Plan: No further AC while in the CICU. F/u ENT recommendations.. Continue Dexamethasone to preevent airway edema. Monitored in the ICU and transferred to the [facility]. - discussed with the ENT team, r Osteopenia Paroxysmal atrial fibrillation (HCC) Personal history of colonic polyps Colon polyps S/P ablation of atrial fibrillation 06/24/2017 Date of procedure 06/23/17. Indication: persistent atrial fibrillation. 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 Unspecified hemorrhoids without mention of complication Hemorrhoids Vitamin D deficiency 08/17/2013 PAST SURGICAL HISTORY Procedure Laterality Date ARTHROSCOPY KNEE DIAGNOSTIC W/WO SYNOVIAL BX SPX Arthroscopy, knee right ARTHRP ACETBLR/PROX FEM PROSTC AGRFT/ALGRFT 04/08/2010 right hip ARTHRP KNE CONDYLEANDPLATU MEDIALANDLAT COMPARTMENTS 04/14/2007 Knee replacement, total/rt ARTHRP KNE CONDYLEANDPLATU MEDIALANDLAT COMPARTMENTS 1997 Knee replacement, total lt COLONOSCOPY 03/29/2001 Repeat in COLONOSCOPY FLX DX W/COLLJ SPEC WHEN PFRMD 09/28/2014 Colonoscopy COLONOSCOPY FLX DX W/COLLJ SPEC WHEN PFRMD 04/11/2019 Colonoscopy, repeat 5 years EGD 11/06/2003 for c/o chest pain EGD TRANSORAL BIOPSY SINGLE/MULTIPLE 05/20/2011 HEART SURGERY HX LEFT HEART CATH,PERCUTANEOUS LIG/TRNSXJ FLP TUBE ABDL/VAG APPR UNI/BI PAST SURGICAL HISTORY OF cataracts bilateral PAST SURGICAL HISTORY OF 06/23/2017 heart ablation PAST SURGICAL HISTORY OF 08/17/2018 heart ablation VAGINAL HYSTERECTOMY UTERUS 250 GM/< 1992 Hysterectomy, vaginal [fibroids and bleeding[[ Current Outpatient Medications on File Prior to Visit Medication Sig flecainide (TAMBOCOR) 100 mg tablet TAKE 1 TABLET BY MOUTH EVERY 12 HOURS (DOSE INCREASE) hydroCHLOROthiazide 25 mg tablet Take 1 tablet by mouth once daily. levothyroxine (SYNTHROID) 25 mcg tablet Take 1 tablet by mouth daily before breakfast. allopurinol (ZYLOPRIM) 300 mg tablet Take 1 tablet by mouth twice daily. cyanocobalamin (VITAMIN B-12) 1,000 mcg tab Take 1 tablet by mouth once daily. Cholecalciferol, Vitamin D3, (VITAMIN D-3) 50 mcg (2,000 unit) cap Take 1 capsule by mouth once daily. XARELTO 20 mg tablet TAKE 1 TABLET BY MOUTH EVERY DAY WITH DINNER lisinopril (ZESTRIL, PRINIVIL) 5 mg tablet Take 5 mg by mouth once daily. acetaminophen (TYLENOL) 500 mg tablet Take 1,000 mg by mouth at bedtime as needed. metoprolol tartrate, short acting, (LOPRESSOR) 12.5 mg tab Take 12.5 mg by mouth every 12 hours. flecainide (TAMBOCOR) 150 mg tablet Take 0.5 tablets by mouth twice daily. (Patient taking differently: Take 100 mg by mouth two times a day. Take 1 tablet twice daily) No current facility-administered medications on file prior to visit. EXAM: General: cooperative and NAD Location: Right hand: No gross visible deformity noted. No rotation abnormalities of the fingers. There is bruising and soft tissue swelling around the fifth finger. Negative for: crepitation or instability Neurovascular: intact (more content not included)...[facility]11-17-2023 NoteHNO ID: [id number] Author: Aurea Lopez Ma Service: ? Author Type: ? Type: Progress Notes Filed: 10/09/2023 1:30 PM Note Text: AMB ROOMING INTAKE FLOWSHEET DATA Pain Pain Level: 2 Pain Location: Finger Description: Sore, Other: See comment Duration Units: Minutes Frequency: Intermittent Intervention/Comfort measure: Medication, Reposition, Cold, Positioning, Splinting, Support surface Comments: Ok when jaya wrapped, hurts when wrap is [facility] History of Present illness Narrative* Aryan Torres V, DO - 10/09/2023 1:26 PM EST SUBJECTIVE: Katelynn Campuzano is a 73 year old female who is here for a right little finger injury. It occurred 10 days ago when she fell on right hand. Symptoms include pain, swelling and bruising of the finger.She was seen in [facility] care, has tried jaya taping. PAST MEDICAL HISTORY Diagnosis Date Acquired hypothyroidism 07/16/2016 Continue home Levothyroxine dose. 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 Essential hypertension 09/24/2010 On Atenolol and HCTZ GERD without esophagitis Gilbert syndrome 11/13/2021 Hip arthritis 07/23/2009 History of cardiac radiofrequency ablation History of COVID-19 09/19/2022 09/18/2022 Hyperlipidemia, mixed 10/04/2021 Hyperuricemia 06/06/[address] 04/11/2022 DPA: Sherman () Low serum vitamin B12 04/08/2021 Lumbar compression fracture (HCC) 04/15/2017 Lumbar degenerative disc disease 04/15/2017 Medicare annual wellness visit, subsequent 04/03/2021 Last Done: 04/03/[address] nodules on [address] 08/24/2018 Obesity, Class II, BMI 35-39.9 07/03/2016 Obstructive sleep apnea syndrome 06/24/2017 On CPAP at home. 7 cm pressure Oropharyngeal bleeding 06/24/2017 Happened intraop. Unclear etiology. Initial ENT evaluation reportedly did not reveal any clear source of bleeding. Patient received protamine for heparin reversal intraop and was successfully extubated. Plan: No further AC while in the CICU. F/u ENT recommendations.. Continue Dexamethasone to preevent airway edema. Monitored in the ICU and transferred to the [facility]. - discussed with the ENT team, r Osteopenia Paroxysmal atrial fibrillation (HCC) Personal history of colonic polyps Colon polyps S/P ablation of atrial fibrillation 06/24/2017 Date of procedure 06/23/17. Indication: persistent atrial fibrillation. 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 Unspecified hemorrhoids without mention of complication Hemorrhoids Vitamin D deficiency 08/17/2013 PAST SURGICAL HISTORY Procedure Laterality Date ARTHROSCOPY KNEE DIAGNOSTIC W/WO SYNOVIAL BX SPX Arthroscopy, knee right ARTHRP ACETBLR/PROX FEM PROSTC AGRFT/ALGRFT 04/08/2010 right hip ARTHRP KNE CONDYLE&PLATU MEDIAL&LAT COMPARTMENTS 04/14/2007 Knee replacement, total/rt ARTHRP KNE CONDYLE&PLATU MEDIAL&LAT COMPARTMENTS 1997 Knee replacement, total lt COLONOSCOPY 03/29/2001 Repeat in COLONOSCOPY FLX DX W/COLLJ SPEC WHEN PFRMD 09/28/2014 Colonoscopy COLONOSCOPY FLX DX W/COLLJ SPEC WHEN PFRMD 04/11/2019 Colonoscopy, repeat 5 years EGD 11/06/2003 for c/o chest pain EGD TRANSORAL BIOPSY SINGLE/MULTIPLE 05/20/2011 HEART SURGERY HX LEFT HEART CATH,PERCUTANEOUS LIG/TRNSXJ FLP TUBE ABDL/VAG APPR UNI/BI PAST SURGICAL HISTORY OF cataracts bilateral PAST SURGICAL HISTORY OF 06/23/2017 heart ablation PAST SURGICAL HISTORY OF 08/17/2018 heart ablation VAGINAL HYSTERECTOMY UTERUS 250 GM/< 1992 Hysterectomy, vaginal [fibroids and bleeding[[ Current Outpatient Medications on File Prior to Visit Medication Sig flecainide (TAMBOCOR) 100 mg tablet TAKE 1 TABLET BY MOUTH EVERY 12 HOURS (DOSE INCREASE) hydroCHLOROthiazide 25 mg tablet Take 1 tablet by mouth once daily. levothyroxine (SYNTHROID) 25 mcg tablet Take 1 tablet by mouth daily before breakfast. allopurinol (ZYLOPRIM) 300 mg tablet Take 1 tablet by mouth twice daily. cyanocobalamin (VITAMIN B-12) 1,000 mcg tab Take 1 tablet by mouth once daily. Cholecalciferol, Vitamin D3, (VITAMIN D-3) 50 mcg (2,000 unit) cap Take 1 capsule by mouth once daily. XARELTO 20 mg tablet TAKE 1 TABLET BY MOUTH EVERY DAY WITH DINNER lisinopril (ZESTRIL, PRINIVIL) 5 mg tablet Take 5 mg by mouth once daily. acetaminophen (TYLENOL) 500 mg tablet Take 1,000 mg by mouth at bedtime as needed. metoprolol tartrate, short acting, (LOPRESSOR) 12.5 mg tab Take 12.5 mg by mouth every 12 hours. flecainide (TAMBOCOR) 150 mg tablet Take 0.5 tablets by mouth twice daily. (Patient taking differently: Take 100 mg by mouth two times a day. Take 1 tablet twice daily) No current facility-administered medications on file prior to visit. EXAM: General: cooperative and NAD Location: Right hand: No gross visible deformity noted. No rotation abnormalities of the fingers. There is bruising and soft tissue swelling around the fifth finger. Negative for: crepitation or instability Neurovascular: intact X-ray: Minimally displaced fracture of the ulnar base of the small finger proximal phalanx with marginal intra-articular extension. Minimally displaced fracture of the volar base of the small finger middle phalanx. Equivocal intra-articular extension. Scattered DIP osteoarthritis most pronounced at the index and middle finger DIP joints. Mild thumb CMC osteoarthritis. IMPRESSION: Closed fracture right fifth finger PLAN: Splint and jaya wrap applied today Haley nature of fracture, that it is intra-articular which can contribute to healing complications and arthritis in the future.\. Recheck in 2 to 3 weeks with repeat x-rays Aryan Torres DO * Aurea Lopez Ma - 10/09/2023 1:06 PM EST AMB ROOMING INTAKE FLOWSHEET DATA Pain Pain Level: 2 Pain Location: Finger Description: Sore, Other: See comment Duration Units: Minutes Frequency: Intermittent Intervention/Comfort measure: Medication, Reposition, Cold, Positioning, Splinting, Support surface Comments: Ok when jaya wrapped, hurts when wrap is off documented in this encounterAv[facility]11-16-[facility]23 History of Past illness Narrative* Problem Noted Date Diagnosed Date Resolved Date IRB 18-444: [facility] Using [employer] Platform for Chronic Care of Patients with AF after Ablation Procedure- Randomized Study 12/02/2018 05/13/2019 Sciatica of right side 08/11/201701/07 A-fib 06/24/2017 07/06/2017 Lumbar compression fracture 04/15/2017 04/11/2022 Paronychia of finger 05/14/2016 017 Atrial fibrillation, persistent 09/04/2015 12/27/2018 Overview: S/p DCCV Oct 2016 and PV! Jun 23 2017. [id number] risk score: 3. On Flecainide and chronic AC with Rivaroxaban. Plan: Monitor in the CICU Will hold AC for now due to concern for oropharynx bleeding after PVI. Daily ECgs Continue Flecainide F/u EP recs. Vitamin D deficiency 08/17/2013 018 Secondary hyperparathyroidism, non-renal 09/02/2005 01/07/2018 Abdominal pain, left upper quadrant 07/17/2016 Hyperparathyroidism, unspecified 12/22/2006 documented as of this encounter (statuses as of 10/08/2023) [facility] NoteHNO ID: [id number] Author: Samira Doe RT(R) Service: Radiology Author Type: Technologist Type: Progress Notes Filed: 10/08/2023 1:08 PM Note Text: Radiology Service Progress Note PATIENT NAME: Katelynn Campuzano DATE OF SERVICE: October 08, 2023 TIME: 12:58 PM PATIENT IDENTITY VERIFICATION COMPLETED USING TWO (2) IDENTIFIERS: Name and Date of confirmed by patient verbally. FALL SCREENING: Has the patient had 2 falls in the last year or 1 fall with injury or currently using an Ambulatory Assistive Device (Walker, Cane, Wheelchair, Crutches, etc.)? No PATIENT GENDER DATA: Female. status: : No status: NO. PATIENT RELEVANT IMPLANT DATA REVIEWED: Yes RADIOLOGY DEPARTMENT: General X-ray: Exam(s) Completed: Upper Extremity X-Ray(s): Hand, right PERIPHERAL IV DATA: Not applicable SIGNED BY: Samira Doe, RT(R) October 08, 2023 12:58 [facility]11-16-2023 NoteHNO ID: [id number] Author: Alta Moser APRN.ASSOCIATE TECHNICIAN Service: ? Author Type: Nurse Practitioner Type: Progress Notes Filed: 10/08/2023 3:58 PM Note Text: This note was created using [employer]. Subjective Katelynn Campuzano is a 73 year old female. 73 year old female with PMH HTN, afib, hyperlipidemia, GERD, thyroid and depression presents for illness. Acute onset 10 days ago States that she was walking in the parking lot area of [employer] States she endured curb, And ultimately lost balance, Used her hand to break fall Denies head injury or LOC Denies neck or back pain Endorse fall was mechanical She does take Xarelto. Right hand dominant. Has tried jaya taping, but just not working The history is provided by the patient. No historical interpreter was used. Hand Injury This is a new problem. The current episode started 1 to 4 weeks ago. The problem occurs constantly. The problem has been unchanged. Associated symptoms include joint swelling. Pertinent negatives include no abdominal pain, anorexia, arthralgias, change in bowel habit, chest pain, chills, congestion, coughing, diaphoresis, fatigue, fever, headaches, myalgias, nausea, neck pain, numbness, rash, sore throat, swollen glands, urinary symptoms, vertigo, visual change, vomiting or weakness. Exacerbated by: touching and bending. She has tried immobilization for the symptoms. The treatment provided mild relief. PAST MEDICAL HISTORY Diagnosis Date Acquired hypothyroidism 07/16/2016 Continue home Levothyroxine dose. 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 Essential hypertension 09/24/2010 On Atenolol and HCTZ GERD without esophagitis Gilbert syndrome 11/13/2021 Hip arthritis 07/23/2009 History of cardiac radiofrequency ablation History of COVID-19 09/19/2022 09/18/2022 Hyperlipidemia, mixed 10/04/2021 Hyperuricemia 06/06/[address] 04/11/2022 DPA: Sherman () Low serum vitamin B12 04/08/2021 Lumbar compression fracture (HCC) 04/15/2017 Lumbar degenerative disc disease 04/15/2017 Medicare annual wellness visit, subsequent 04/03/2021 Last Done: 04/03/[address] nodules [address] CT 08/24/2018 Obesity, Class II, BMI 35-39.9 07/03/2016 Obstructive sleep apnea syndrome 06/24/2017 On CPAP at home. 7 cm pressure Oropharyngeal bleeding 06/24/2017 Happened intraop. Unclear etiology. Initial ENT evaluation reportedly did not reveal any clear source of bleeding. Patient received protamine for heparin reversal intraop and was successfully extubated. Plan: No further AC while in the CICU. F/u ENT recommendations.. Continue Dexamethasone to preevent airway edema. Monitored in the ICU and transferred to the [facility]. - discussed with the ENT team, r Osteopenia Paroxysmal atrial fibrillation (HCC) Personal history of colonic polyps Colon polyps S/P ablation of atrial fibrillation 06/24/2017 Date of procedure 06/23/17. Indication: persistent atrial fibrillation. 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 Unspecified hemorrhoids without mention of complication Hemorrhoids Vitamin D deficiency 08/17/2013 PAST SURGICAL HISTORY Procedure Laterality Date ARTHROSCOPY KNEE DIAGNOSTIC W/WO SYNOVIAL BX SPX Arthroscopy, knee right ARTHRP ACETBLR/PROX FEM PROSTC AGRFT/ALGRFT 04/08/2010 right hip ARTHRP KNE CONDYLEANDPLATU MEDIALANDLAT COMPARTMENTS 04/14/2007 Knee replacement, total/rt ARTHRP KNE CONDYLEANDPLATU MEDIALANDLAT COMPARTMENTS 1997 Knee replacement, total lt COLONOSCOPY 03/29/2001 Repeat in COLONOSCOPY FLX DX W/COLLJ SPEC WHEN PFRMD 09/28/2014 Colonoscopy COLONOSCOPY FLX DX W/COLLJ SPEC WHEN PFRMD 04/11/2019 Colonoscopy, repeat 5 years EGD 11/06/2003 for c/o chest pain EGD TRANSORAL BIOPSY SINGLE/MULTIPLE 05/20/2011 HEART SURGERY HX LEFT HEART CATH,PERCUTANEOUS LIG/TRNSXJ FLP TUBE ABDL/VAG APPR UNI/BI PAST SURGICAL HISTORY OF cataracts bilateral PAST SURGICAL HISTORY OF 06/23/2017 heart ablation PAST SURGICAL HISTORY OF 08/17/2018 heart ablation VAGINAL HYSTERECTOMY UTERUS 250 GM/< 1992 Hysterectomy, vaginal [fibroids and bleeding[[ ALLERGIES Sulfa (Sulfonamide Antibiotics) and Penicillins MEDICATIONS flecainide (TAMBOCOR) 100 mg tablet TAKE 1 TABLET BY MOUTH EVERY 12 HOURS (DOSE INCREASE) hydroCHLOROthiazide 25 mg tablet Take 1 tablet by mouth once daily. levothyroxine (SYNTHROID) 25 mcg tablet Take 1 tablet by mouth daily before breakfast. allopurinol (ZYLOPRIM) 300 mg tablet Take 1 tablet by mouth twice daily. (more content not included)...[facility]11-16-2023 History of Present illness Narrative* Alta Moser APRN.ASSOCIATE TECHNICIAN - 10/08/2023 12:50 PM EST Images from the original note were not included. This note was created using [employer]. Subjective Katelynn Campuzano is a 73 year old female. 73 year old female with PMH HTN, afib, hyperlipidemia, GERD, thyroid and depression presents for illness. Acute onset 10 days ago States that she was walking in the parking lot area of [employer] [facility] States she endured curb, And ultimately lost balance, Used her hand to break fall Denies head injury or LOC Denies neck or back pain Endorse fall was mechanical She does take Xarelto. Right hand dominant. Has tried jaya taping, but just not working The history is provided by the patient. No historical interpreter was used. Hand Injury This is a new problem. The current episode started 1 to 4 weeks ago. The problem occurs constantly.The problem has been unchanged. Associated symptoms include joint swelling. Pertinent negatives include no abdominal pain, anorexia, arthralgias, change in bowel habit, chest pain, chills, congestion, coughing, diaphoresis, fatigue, fever, headaches, myalgias, nausea, neck pain, numbness, rash, sore throat, swollen glands, urinary symptoms, vertigo, visual change, vomiting or weakness. Exacerbated by: touching and bending. She has tried immobilization for the symptoms. The treatment provided mild relief. PAST MEDICAL HISTORY Diagnosis Date Acquired hypothyroidism 07/16/2016 Continue home Levothyroxine dose. 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 Essential hypertension 09/24/2010 On Atenolol and HCTZ GERD without esophagitis Gilbert syndrome 11/13/2021 Hip arthritis 07/23/2009 History of cardiac radiofrequency ablation History of COVID-19 09/19/2022 09/18/2022 Hyperlipidemia, mixed 10/04/2021 Hyperuricemia 06/06/[address] 04/11/2022 DPA: Sherman () Low serum vitamin B12 04/08/2021 Lumbar compression fracture (HCC) 04/15/2017 Lumbar degenerative disc disease 04/15/2017 Medicare annual wellness visit, subsequent 04/03/2021 Last Done: 04/03/[address] nodules on CT 08/24/2018 Obesity, Class II, BMI 35-39.9 07/03/2016 Obstructive sleep apnea syndrome 06/24/2017 On CPAP at home. 7 cm pressure Oropharyngeal bleeding 06/24/2017 Happened intraop. Unclear etiology. Initial ENT evaluation reportedly did not reveal any clear source of bleeding. Patient received protamine for heparin reversal intraop and was successfully extubated. Plan: No further AC while in the CICU. F/u ENT recommendations.. Continue Dexamethasone to preevent airway edema. Monitored in the ICU and transferred to the [facility]. - discussed with the ENT team, r Osteopenia Paroxysmal atrial fibrillation (HCC) Personal history of colonic polyps Colon polyps S/P ablation of atrial fibrillation 06/24/2017 Date of procedure 06/23/17. Indication: persistent atrial fibrillation. 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 Unspecified hemorrhoids without mention of complication Hemorrhoids Vitamin D deficiency 08/17/2013 PAST SURGICAL HISTORY Procedure Laterality Date ARTHROSCOPY KNEE DIAGNOSTIC W/WO SYNOVIAL BX SPX Arthroscopy, knee right ARTHRP ACETBLR/PROX FEM PROSTC AGRFT/ALGRFT 04/08/2010 right hip ARTHRP KNE CONDYLE&PLATU MEDIAL&LAT COMPARTMENTS 04/14/2007 Knee replacement, total/rt ARTHRP KNE CONDYLE&PLATU MEDIAL&LAT COMPARTMENTS 1997 Knee replacement, total lt COLONOSCOPY 03/29/2001 Repeat in COLONOSCOPY FLX DX W/COLLJ SPEC WHEN PFRMD 09/28/2014 Colonoscopy COLONOSCOPY FLX DX W/COLLJ SPEC WHEN PFRMD 04/11/2019 Colonoscopy, repeat 5 years EGD 11/06/2003 for c/o chest pain EGD TRANSORAL BIOPSY SINGLE/MULTIPLE 05/20/2011 HEART SURGERY HX LEFT HEART CATH,PERCUTANEOUS LIG/TRNSXJ FLP TUBE ABDL/VAG APPR UNI/BI PAST SURGICAL HISTORY OF cataracts bilateral PAST SURGICAL HISTORY OF 06/23/2017 heart ablation PAST SURGICAL HISTORY OF 08/17/2018 heart ablation VAGINAL HYSTERECTOMY UTERUS 250 GM/< 1992 Hysterectomy, vaginal [fibroids and bleeding[[ ALLERGIES Sulfa (Sulfonamide Antibiotics) and Penicillins MEDICATIONS flecainide (TAMBOCOR) 100 mg tablet TAKE 1 TABLET BY MOUTH EVERY 12 HOURS (DOSE INCREASE) hydroCHLOROthiazide 25 mg tablet Take 1 tablet by mouth once daily. levothyroxine (SYNTHROID) 25 mcg tablet Take 1 tablet by mouth daily before breakfast. allopurinol (ZYLOPRIM) 300 mg tablet Take 1 tablet by mouth twice daily. cyanocobalamin (VITAMIN B-12) 1,000 mcg tab Take 1 tablet by mouth once daily. Cholecalciferol, Vitamin D3, (VITAMIN D-3) 50 mcg (2,000 unit) cap Take 1 capsule by mouth once daily. XARELTO 20 mg tablet TAKE 1 TABLET BY MOUTH EVERY DAY WITH DINNER lisinopril (ZESTRIL, PRINIVIL) 5 mg tablet Take 5 mg by mouth once daily. flecainide (TAMBOCOR) 150 mg tablet Take 0.5 tablets by mouth twice daily. (Patient taking differently: Take 100 mg by mouth two times a day. Take 1 tablet twice daily) acetaminophen (TYLENOL) 500 mg tablet Take 1,000 mg by mouth at bedtime as needed. metoprolol tartrate, short acting, (LOPRESSOR) 12.5 mg tab Take 12.5 mg by mouth every 12 hours. FAMILY HISTORY Problem Relation Age of Onset Diabetes Mother Thyroid Mother other (Other) Mother colon polyps - not CA Heart Father other (Other) Brother colon polyps- not CA Cancer Daughter 4 neuroblastoma Social History Tobacco Use Smoking status: Never Smokeless tobacco: Never Substance Use Topics Alcohol use: Never Drug use: No Review of Systems Constitutional: Negative for chills, diaphoresis, fatigue and fever. HENT: Negative for congestion and sore throat. Eyes: Negative for pain, discharge, redness and itching. Respiratory: Negative for apnea, cough, choking and chest tightness. Cardiovascular: Negative for chest pain, palpitations and leg swelling. Gastrointestinal: Negative for abdominal pain, anorexia, change in bowel habit, nausea and vomiting. Musculoskeletal: Positive for joint swelling. Negative for arthralgias, myalgias and neck pain. Skin: Negative for color change, pallor and rash. Allergic/Immunologic: Negative for environmental allergies, food allergies and immunocompromised state. Neurological: Negative for dizziness, vertigo, facial asymmetry, weakness, numbness and headaches. Hematological: Negative for adenopathy. Does not bruise/bleed easily. Psychiatric/Behavioral: Negative for agitation and behavioral problems. Objective BP 118/62 Pulse (!) 56 Temp 36.1 C (97 F) Resp 16 Wt 118.8 kg (262 lb) SpO2 98% BMI 40.43 kg/m Physical Exam Vitals and nursing note reviewed. Constitutional: General: She is not in acute distress. Appearance: Normal appearance. She is normal weight. She is not ill-appearing, toxic-appearing or diaphoretic. HENT: Head: Normocephalic and atraumatic. Right Ear: Ear canal and external ear normal. Left Ear: Ear canal and external ear normal. Nose: Nose normal. No congestion or rhinorrhea. Mouth/Throat: Mouth: Mucous membranes are moist. Pharynx: No oropharyngeal exudate or posterior oropharyngeal erythema. Eyes: General: Right eye: No discharge. Left eye: No discharge. Extraocular Movements: Extraocular movements intact. Conjunctiva/sclera: Conjunctivae normal. Pupils: Pupils are equal, round, and reactive to light. Cardiovascular: Rate and Rhythm: Normal rate and regular rhythm. Pulses: Normal pulses. Heart sounds: Normal heart sounds. No murmur heard. No friction rub. Pulmonary: Effort: Pulmonary effort is normal. No respiratory distress. Breath sounds: Normal breath sounds. No stridor. No wheezing, rhonchi or rales. Chest: Chest wall: No tenderness. Abdominal: General: Abdomen is flat. There is no distension. Palpations: Abdomen is soft. There is no mass. Tenderness: There is no abdominal tenderness. There is no right CVA tenderness, left CVA tenderness, guarding or rebound. Hernia: No hernia is present. Musculoskeletal: General: No swelling, tenderness, deformity or signs of injury. Normal range of motion. Hands: Cervical back: Normal range of motion and neck supple. No rigidity. Right lower leg: No edema. Left lower leg: No edema. Lymphadenopathy: Cervical: No cervical adenopathy. Skin: General: Skin is warm and dry. Capillary Refill: Capillary refill takes less than 2 seconds. Coloration: Skin is not jaundiced or pale. Findings: No bruising, erythema, lesion or rash. Neurological: General: No focal deficit present. Mental Status: She is alert and oriented to person, place, and time. Cranial Nerves: No cranial nerve deficit. Sensory: No sensory deficit. Motor: No weakness. Coordination: Coordination normal. Gait: Gait normal. Psychiatric: Mood and Affect: Mood normal. Behavior: Behavior normal. Thought Content: Thought content normal. Judgment: Judgment normal. Assessment and Plan ASSESSMENT/PLAN: 1. Hand pain, right - ICD9: 729.5, ICD10: M79.641 (primary diagnosis) X 10 days Patient had fall NO red flags - XR HAND GENERAL 3V PA/LAT/OBL RIGHT-Minimally displaced fractures of the base of the small fingerproximal and middle phalanges as described. 2. Closed nondisplaced fracture of phalanx of right little finger, unspecified phalanx, initial encounter - ICD9: 816.00, ICD10: S62.606A Aluminum finger splint RICE therapy OTC analgesics Follow up with ortho Alta Moser APRN.ASSOCIATE TECHNICIAN documented in this encounterAv[facility]-31-[facility]23 NoteHNO ID: [id number] Author: Janeen Flores Ma Service: ? Author Type: ? Type: Progress Notes Filed: 09/22/2023 9:01 PM Note Text: Scan on 09/22/2023 10:35 AM by Provider, SHAE Louise: [facility] History of Present illness Narrative* Janeen Flores Ma - 09/22/2023 4:12 PM EDT Scan on 09/22/2023 10:35 AM by ProviderAspen PA-C: Consultation - Cardiology documented in this encounterAvita [facility] System10-19-2023 History of Past illness Narrative* Problem Noted Date Diagnosed Date Resolved Date IRB 18-444: [facility] Using [employer] Platform for Chronic Care of Patients with AF after Ablation Procedure- Randomized Study 12/02/2018 05/13/2019 Sciatica of right side 08/11/201701/07 A-fib 06/24/2017 07/06/2017 Lumbar compression fracture 04/15/2017 04/11/2022 Paronychia of finger 05/14/2016 017 Atrial fibrillation, persistent 09/04/2015 12/27/2018 Overview: S/p DCCV Oct 2016 and PV! Jun 23 2017. [id number] risk score: 3. On Flecainide and chronic AC with Rivaroxaban. Plan: Monitor in the CICU Will hold AC for now due to concern for oropharynx bleeding after PVI. Daily ECgs Continue Flecainide F/u EP recs. Vitamin D deficiency 08/17/2013 018 Secondary hyperparathyroidism, non-renal 09/02/2005 01/07/2018 Abdominal pain, left upper quadrant 07/17/2016 Hyperparathyroidism, unspecified 12/22/2006 documented as of this encounter (statuses as of 09/10/2023) [facility] NoteHNO ID: [id number] Author: Michelle Kim LPN Service: ? Author Type: ? Type: Progress Notes Filed: 09/10/2023 2:19 PM Note Text: Scan on 09/10/2023 9:15 AM by Provider, Aspen, PA-C: [facility] History of Present illness Narrative* Michelle Kim LPN - 09/10/2023 2:18 PM EDT Scan on 09/10/2023 9:15 AM by Provider, Aspen, PA-C: Consultation - Dermatology documented in this encounterAvita [facility] System10-18-2023 History of Past illness Narrative* Problem Noted Date Diagnosed Date Resolved Date IRB 18-444: [facility] Using [employer] Platform for Chronic Care of Patients with AF after Ablation Procedure- Randomized Study 12/02/2018 05/13/2019 Sciatica of right side 08/11/201701/07 A-fib 06/24/2017 07/06/2017 Lumbar compression fracture 04/15/2017 04/11/2022 Paronychia of finger 05/14/2016 017 Atrial fibrillation, persistent 09/04/2015 12/27/2018 Overview: S/p DCCV Oct 2016 and PV! Jun 23 2017. [id number] risk score: 3. On Flecainide and chronic AC with Rivaroxaban. Plan: Monitor in the CICU Will hold AC for now due to concern for oropharynx bleeding after PVI. Daily ECgs Continue Flecainide F/u EP recs. Vitamin D deficiency 08/17/2013 018 Secondary hyperparathyroidism, non-renal 09/02/2005 01/07/2018 Abdominal pain, left upper quadrant 07/17/2016 Hyperparathyroidism, unspecified 12/22/2006 documented as of this encounter (statuses as of 09/09/2023) [facility] of Past illness Narrative* Problem Noted Date Diagnosed Date Resolved Date IRB [id number]: [facility] Using [employer] Platform for Chronic Care of Patients with AF after Ablation Procedure- Randomized Study 12/02/2018 05/13/2019 Sciatica of right side 08/11/201701/07 A-fib 06/24/2017 07/06/2017 Lumbar compression fracture 04/15/2017 04/11/2022 Paronychia of finger 05/14/2016 017 Atrial fibrillation, persistent 09/04/2015 12/27/2018 Overview: S/p DCCV Oct 2016 and PV! Jun 23 2017. [id number] risk score: 3. On Flecainide and chronic AC with Rivaroxaban. Plan: Monitor in the CICU Will hold AC for now due to concern for oropharynx bleeding after PVI. Daily ECgs Continue Flecainide F/u EP recs. Vitamin D deficiency 08/17/2013 018 Secondary hyperparathyroidism, non-renal 09/02/2005 01/07/2018 Abdominal pain, left upper quadrant 07/17/2016 Hyperparathyroidism, unspecified 12/22/2006 documented as of this encounter (statuses as of 09/09/2023) [facility] Miscellaneous Notes* Telephone Encounter - Magda Simon MD - 09/09/2023 11:25 AM EDT ordered * Telephone Encounter - Ree Ngo RN - 09/09/2023 11:09 AM EDT Mammogram order pending. Ree Ngo RN documented in this encounterAvita Health System06-28-2023 History of Past illness Narrative* Problem Noted Date Resolved Date IRB 444: [facility] Using [employer] Platform for Chronic Care of Patients with AF after Ablation Procedure- Randomized Study 12/02/2018 05/13/2019 Sciatica of right side 08/11/2017 8 A-fib 06/24/2017 07/06/2017 Lumbar compression fracture 04/15/201703/24 Paronychia of finger 05/14/2016 12/17/2016 Atrial fibrillation, persistent 09/04/2015 12/27/2018 Overview: S/p DCCV Oct 2016 and PV! Jun 23 2017. [id number] risk score: 3. On Flecainide and chronic AC with Rivaroxaban. Plan: Monitor in the CICU Will hold AC for now due to concern for oropharynx bleeding after PVI. Daily ECgs Continue Flecainide F/u EP recs. Vitamin D deficiency 08/17/2013 01/07/2018 Secondary hyperparathyroidism, non-renal 005 01/07/2018 Abdominal pain, left upper quadrant 07/17/2016 Hyperparathyroidism, unspecified 12/22/2006 documented as of this encounter (statuses as of 05/21/2023) [facility] Miscellaneous Notes* Telephone Encounter - Cholo Soriano MD - 05/20/2023 2:34 PM EDT The following approved medication requests have been transmitted electronically. Requested Prescriptions Signed Prescriptions Disp Refills hydroCHLOROthiazide 25 mg tablet 90 tablet 1 Sig: Take 1 tablet by mouth once daily. Authorizing Provider: CHOLO SORIANO MD * Telephone Encounter - Zainab Morataya LPN - 05/20/2023 2:31 PM EDT Last refill 11/25/22 Qty: 90 with 1 refill JEOVANY 04/24/23 NOV 10/26/23 Zainab Morataya LPN documented in this encounterAvita [facility] System06-27-2023 History of Past illness Narrative* Problem Noted Date Resolved Date IRB 18-457: [facility] Using [employer] Platform for Chronic Care of Patients with AF after Ablation Procedure- Randomized Study 12/02/2018 05/13/2019 Sciatica of right side 08/11/2017 8 A-fib 06/24/2017 07/06/2017 Lumbar compression fracture 04/15/201703/24 Paronychia of finger 05/14/2016 12/17/2016 Atrial fibrillation, persistent 09/04/2015 12/27/2018 Overview: S/p DCCV Oct 2016 and PV! Jun 23 2017. [id number] risk score: 3. On Flecainide and chronic AC with Rivaroxaban. Plan: Monitor in the CICU Will hold AC for now due to concern for oropharynx bleeding after PVI. Daily ECgs Continue Flecainide F/u EP recs. Vitamin D deficiency 08/17/2013 01/07/2018 Secondary hyperparathyroidism, non-renal 005 01/07/2018 Abdominal pain, left upper quadrant 07/17/2016 Hyperparathyroidism, unspecified 12/22/2006 documented as of this encounter (statuses as of 05/19/2023) [facility] NoteHNO ID: [id number] Author: Natalia Wood MD Service: ? Author Type: Physician Type: Progress Notes Filed: 05/19/2023 11:26 AM Note Text: [facility]PART[facility]UL[facility]ICINE ESTABLISHED PATIENT OFFICE VISIT 05/19/2023 Patient Name: Katelynn Campuzano PRIMARY CARE PHYSICIAN: Cholo Soriano MD CHIEF COMPLAINT: Lung nodules. Past medical history is also significant for hypothyroidism, hypertension, GERD, Paroxysmal atrial fibrillation, . Never smoker HISTORY OF PRESENT ILLNESS: Since the last visit with in on 03/2022, Ms. Campuzano has been doing well. No recent hospitalizations, ER visits or steroids use. No complaints today. No respiratory symptoms. Not using any inhalers Ct chest 04/2023 stable lung nodules. New 4 mm RLL Social History Tobacco Use Smoking status: Never Smokeless tobacco: Never Substance Use Topics Alcohol use: Never Drug use: No ALLERGIES ALLERGIES Allergen Reactions Sulfa (Sulfonamide * Hives Penicillins Unknown CURRENT OUTPATIENT MEDICATIONS levothyroxine (SYNTHROID) 25 mcg tablet Take 1 tablet by mouth daily before breakfast. allopurinol (ZYLOPRIM) 300 mg tablet Take 1 tablet by mouth twice daily. hydroCHLOROthiazide (HYDRODIURIL, ESIDRIX) 25 mg tablet Take 1 tablet by mouth once daily. cyanocobalamin (VITAMIN B-12) 1,000 mcg tab Take 1 tablet by mouth once daily. Cholecalciferol, Vitamin D3, (VITAMIN D-3) 50 mcg (2,000 unit) cap Take 1 capsule by mouth once daily. XARELTO 20 mg tablet TAKE 1 TABLET BY MOUTH EVERY DAY WITH DINNER lisinopril (ZESTRIL, PRINIVIL) 5 mg tablet Take 5 mg by mouth once daily. flecainide (TAMBOCOR) 150 mg tablet Take 0.5 tablets by mouth twice daily. (Patient taking differently: Take 100 mg by mouth twice daily. Take 1 tablet twice daily) acetaminophen (TYLENOL) 500 mg tablet Take 1,000 mg by mouth at bedtime as needed. metoprolol tartrate, short acting, (LOPRESSOR) 12.5 mg tab Take 12.5 mg by mouth every 12 hours. REVIEW OF SYSTEMS Review of Systems Constitutional: Negative for chills, fever and weight loss. Respiratory: Negative for cough, hemoptysis, sputum production, shortness of breath and wheezing. The remainder of review of systems was negative. PHYSICAL EXAMINATION: BP 128/66 Pulse 53 Ht 5' 7.5 (1.72m) Wt 260 lb (117.9kg) SpO2 98% BMI 40.10 kg/(m2). General appearance: Well appearing, alert, in no acute distress, well-hydrated, well nourished. Lungs: Lungs clear to auscultation. No wheezing, rhonchi, rales Heart: RRR without murmur, gallop, or rubs. No ectopy. No edema. Peripheral pulses: Normal Abdomen: Normal abdominal exam, Abdomen soft, non-tender. Bowel sounds normal. No masses, organomegaly Extremities: Normal, Warm, and No cyanosis, no clubbing, Nontender Neuro: no focal deficit Psychiatry: Alert, oriented x3 DATA: Diagnostic tests reviewed for today's visit, including films and specimens, were personally reviewed by me Most recent labs and imaging results. No results found. CT CHEST WO IVCON Result Date: 05/07/2023 IMPRESSION: 1. New 4 mm nodule medial right lower lobe. Other nodules appear unchanged. 2. No thoracic lymphadenopathy ACTIONABLE RESULT: FOLLOW-UP Acuity: Actionable Findings: Thoracic-Lung nodules Routing code: [email or web address] Recommendation: CT Chest WO IVCON Time Frame: At the discretion of the clinical team. COMMUNICATION: Results will be communicated with the ordering provider via [employer] staff message or phone message by [facility] within 2 business days of report finalization. Algorithms for management of incidental imaging findings can be found on the [facility] Intranet Sharepoint site at: [email or web address] [employer] Man: SEBAS Transcribe Date/Time: May 07 2023 2:01P Dictated by : MADONNA ABREU MD This examination was interpreted and the report reviewed and electronically signed by: MADONNA ABREU MD on May 07 2023 2:15PM EST Immunizations: Up to date IMPRESSION: 1. Multiple lung nodules on CT - ICD9: 793.19, ICD10: R91.8 (primary diagnosis) Bilateral pulmonary nodules seen on dedicated CT scan chest March 2021 largest is right upper lobe nodule 6 to 7 mm Other smaller pulmonary nodules are scattered in the right and left lung Other lung nodules has been stable Some of the nodules has been seen since 2017 New 3 mm right lower lobe nodule on 10/2021 scan *6 mm nodule posterior right upper lobe (6:39) seen on ct chest 03/2021 *4 mm nodule right middle lobe (6:107) *3 mm nodule lateral right lower lobe (6:106) *5 mm nodule lingula (6:111) *4 mm nodule posterior left lower lobe (6:115) CT chest 05/05/2022 shows that nodules appear to stable CT chest scheduled for 04/2023: stable nodules New 4mm RLL nodule Repeat ct chest in 1 yea (more content not included)...[facility]06-27-2023 History of Present illness Narrative* Natalia Wood MD - 05/19/2023 11:10 AM EDT Images from the original note were not included. [facility]PART[facility]MON[facility]ICINE ESTABLISHED PATIENT OFFICE VISIT 05/19/2023 Patient Name: Katelynn Campuzano PRIMARY CARE PHYSICIAN: Cholo Soriano MD CHIEF COMPLAINT: Lung nodules. Past medical history is also significant for hypothyroidism, hypertension, GERD, Paroxysmal atrial fibrillation, . Never smoker HISTORY OF PRESENT ILLNESS: Since the last visit with in on 03/2022, Ms. Campuzano has been doing well. No recent hospitalizations, ER visits or steroids use. No complaints today. No respiratory symptoms. Not using any inhalers Ct chest 04/2023 stable lung nodules. New 4 mm RLL Social History Tobacco Use Smoking status: Never Smokeless tobacco: Never Substance Use Topics Alcohol use: Never Drug use: No ALLERGIES ALLERGIES Allergen Reactions Sulfa (Sulfonamide * Hives Penicillins Unknown CURRENT OUTPATIENT MEDICATIONS levothyroxine (SYNTHROID) 25 mcg tablet Take 1 tablet by mouth daily before breakfast. allopurinol (ZYLOPRIM) 300 mg tablet Take 1 tablet by mouth twice daily. hydroCHLOROthiazide (HYDRODIURIL, ESIDRIX) 25 mg tablet Take 1 tablet by mouth once daily. cyanocobalamin (VITAMIN B-12) 1,000 mcg tab Take 1 tablet by mouth once daily. Cholecalciferol, Vitamin D3, (VITAMIN D-3) 50 mcg (2,000 unit) cap Take 1 capsule by mouth once daily. XARELTO 20 mg tablet TAKE 1 TABLET BY MOUTH EVERY DAY WITH DINNER lisinopril (ZESTRIL, PRINIVIL) 5 mg tablet Take 5 mg by mouth once daily. flecainide (TAMBOCOR) 150 mg tablet Take 0.5 tablets by mouth twice daily. (Patient taking differently: Take 100 mg by mouth twice daily. Take 1 tablet twice daily) acetaminophen (TYLENOL) 500 mg tablet Take 1,000 mg by mouth at bedtime as needed. metoprolol tartrate, short acting, (LOPRESSOR) 12.5 mg tab Take 12.5 mg by mouth every 12 hours. REVIEW OF SYSTEMS Review of Systems Constitutional: Negative for chills, fever and weight loss. Respiratory: Negative for cough, hemoptysis, sputum production, shortness of breath and wheezing. The remainder of review of systems was negative. PHYSICAL EXAMINATION: BP 128/66 Pulse 53 Ht 5' 7.5 (1.72m) Wt 260 lb (117.9kg) SpO2 98% BMI 40.10 kg/(m^2). General appearance: Well appearing, alert, in no acute distress, well-hydrated, well nourished. Lungs: Lungs clear to auscultation. No wheezing, rhonchi, rales Heart: RRR without murmur, gallop, or rubs. No ectopy. No edema. Peripheral pulses: Normal Abdomen: Normal abdominal exam, Abdomen soft, non-tender. Bowel sounds normal. No masses, organomegaly Extremities: Normal, Warm, and No cyanosis, no clubbing, Nontender Neuro: no focal deficit Psychiatry: Alert, oriented x3 DATA: Diagnostic tests reviewed for today's visit, including films and specimens, were personally reviewed by me Most recent labs and imaging results. No results found. CT CHEST WO IVCON Result Date: 05/07/2023 IMPRESSION: 1. New 4 mm nodule medial right lower lobe. Other nodules appear unchanged. 2. No thoracic lymphadenopathy ACTIONABLE RESULT: FOLLOW-UP Acuity: Actionable Findings: Thoracic-Lung nodules Routing code: [id number] Recommendation: CT Chest WO IVCON Time Frame: At the discretion of the clinical team. COMMUNICATION: Results will be communicated with the ordering provider via [employer] staff message or phone message by [facility] Support Services within 2 business days of report finalization. 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 Multiple lung nodules on CT - ICD9: 793.19, ICD10: R91.8 (primary diagnosis) Bilateral pulmonary nodules seen on dedicated CT scan chest March 2021 largest is right upper lobe nodule 6 to 7 mm Other smaller pulmonary nodules are scattered in the right and left lung Other lung nodules has been stable Some of the nodules has been seen since 2017 New 3 mm right lower lobe nodule on 10/2021 scan *6 mm nodule posterior right upper lobe (6:39) seen on ct chest 03/2021 *4 mm nodule right middle lobe (6:107) *3 mm nodule lateral right lower lobe (6:106) *5 mm nodule lingula (6:111) *4 mm nodule posterior left lower lobe (6:115) CT chest 05/05/2022 shows that nodules appear to stable CT chest scheduled for 04/2023: stable nodules New 4mm RLL nodule Repeat ct chest in 1 year 2. 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 Morbid Obesity, BMI 40 4. pulmonary hypertension RSVP 35 mmHg on ECHO from 2019. Likely due to sleep apnea Repeat echo Natalia Wood MD, DEE Staff, Respiratory [place] [facility] documented in this encounter[facility]-14-[facility]23 NoteHNO ID: [id number] Author: Shirley Ramirez RT(R) Service: ? Author Type: Shed Boss Type: Progress Notes Filed: 05/06/2023 3:08 PM Note Text: Radiology Service Progress Note PATIENT NAME: Katelynn Campuzano DATE OF SERVICE: May 06, 2023 TIME: 3:08 PM PATIENT IDENTITY VERIFICATION COMPLETED USING TWO (2) IDENTIFIERS: Name and Date of confirmed by patient verbally. FALL SCREENING: Has the patient had 2 falls in the last year or 1 fall with injury or currently using an Ambulatory Assistive Device (Walker, Cane, Wheelchair, Crutches, etc.)? No PATIENT GENDER DATA: Female. status: : No status: NO. PATIENT RELEVANT IMPLANT DATA REVIEWED: Yes RADIOLOGY DEPARTMENT: CT; Exam(s) Completed: Chest PERIPHERAL IV DATA: Not applicable SIGNED BY: RT Sona(R) May 06, 2023 3:08 [facility]06-02-2023 NoteHNO ID: [id number] Author: Cholo Soriano MD Service: ? Author Type: Physician Type: Progress Notes Filed: 04/24/2023 12:51 PM Note Text: Medicare Yearly Visit Medical B eligibilty date NA Date of last exam 04/11/2022 PAST MEDICAL HISTORY PAST MEDICAL HISTORY Diagnosis Date Acquired hypothyroidism 07/16/2016 Continue home Levothyroxine dose. Calcaneal spur 11/01/2007 Diaphragmatic hernia without mention of obstruction or gangrene Encounter for gynecological examination 04/03/2021 Seeing TIRE TRUCKER Essential hypertension 09/24/2010 On Atenolol and HCTZ Generalized osteoarthrosis, unspecified site 02/11/2007 GERD without esophagitis Hip arthritis 07/23/2009 History of cardiac radiofrequency ablation Hyperparathyroidism, unspecified (HCC) s/p PV! 06/23/17 Hyperuricemia 06/06/2013 Lumbar compression fracture (HCC) 04/15/2017 Lumbar degenerative disc disease 04/15/2017 Mixed hyperglyceridemia 12/15/2016 Morbid obesity due to excess calories (HCC) 07/03/[address] Multiple lung nodules on CT 08/24/2018 Obstructive sleep apnea syndrome 06/24/2017 On CPAP at home. 7 cm pressure Oropharyngeal bleeding 06/24/2017 Happened intraop. Unclear etiology. Initial ENT evaluation reportedly did not reveal any clear source of bleeding. Patient received protamine for heparin reversal intraop and was successfully extubated. Plan: No further AC while in the CICU. F/u ENT recommendations.. Continue Dexamethasone to preevent airway edema. Monitored in the ICU and transferred to the [facility]. - discussed with the ENT team, r Osteopenia Paroxysmal atrial fibrillation (HCC) Personal history of colonic polyps Colon polyps S/P ablation of atrial fibrillation 06/24/2017 Date of procedure 06/23/17. Indication: persistent atrial fibrillation. 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 Unspecified hemorrhoids without mention of complication Hemorrhoids Vitamin D deficiency 08/17/2013 PAST SURGICAL HISTORY PAST SURGICAL HISTORY Procedure Laterality Date COLONOSCOP W/ OR W/O BRSH SPEC 09/28/2014 Colonoscopy COLONOSCOP W/ OR W/O [facility] SPEC 04/11/2019 Colonoscopy, repeat 5 years COLONOSCOPY 03/29/2001 Repeat in EGD 11/06/2003 for c/o chest pain EGD W/O [facility] SPECIMEN W/BX 05/20/2011 HEART SURGERY HX KNEE SCOPE,DIAGNOSTIC Arthroscopy, knee right LEFT HEART CATH,PERCUTANEOUS LIGATE FALLOPIAN TUBE PAST SURGICAL HISTORY OF cataracts bilateral PAST SURGICAL HISTORY OF 06/23/2017 heart ablation PAST SURGICAL HISTORY OF 08/17/2018 heart ablation TOTAL HIP REPLACEMENT 04/08/2010 right hip TOTAL KNEE REPLACEMENT 04/14/2007 Knee replacement, total/rt TOTAL KNEE REPLACEMENT 1997 Knee replacement, total lt VAGINAL HYSTERECTOMY 1991 Hysterectomy, vaginal [fibroids and bleeding[[ ALLERGIES: Sulfa (Sulfonamide Antibiotics), Lodine [Etodolac], and Penicillins Medications reviewed: Yes FAMILY HISTORY FAMILY HISTORY Problem Relation Age of Onset Diabetes Mother Thyroid Mother other (Other) Mother colon polyps - not CA Heart Father other (Other) Brother colon polyps- not CA Cancer Daughter 4 neuroblastoma SOCIAL HISTORY: SOCIAL HISTORY Social History Tobacco Use Smoking status: Never Smoker Smokeless tobacco: Never Used Substance Use Topics Alcohol use: Never Drug use: No Katelynn works out regularly 2 times per week with an instructor and pool 2-3 days a week. She watches her diet for sodium, low fat and low cholesterol most of the time. List of current specialists seen: Dr. Oswald (Cardio), Dr. Moore (ortho: Knee and Hip) and TIRE TRUCKER Dr. Mehta (Pulm) for ROZ Dr. Ashley (Gen Surg) thyroid nodule End of Live Planning discussed including patients advanced directive wishes: Yes I am willing to follow [employer] advanced directives. PHQ-2 / Depression screen Depression Screening 04/01/2021 04/11/2022 10/15/2022 04/24/2023 PHQ-2 Score 0 0 2 1 PHQ-9 Score 1 - - - REECE-2 Total Score - - - - Depression screening tool completed and reviewed. Based on score and interview, patient is not at risk for depression. Screening tool discussed with patient, and I recommended no further intervention at this time. Functional Ability/Safety Screen 1. Was the patient's timed Up and Go test unsteady or longer than 30 seconds? No 2. Does the patient need help with the phone, transportation, shopping,preparing meals, housework, laundry, medications or managing money? No 3. Does your home have rugs in the hallway (Y), lack of grab bars in the bathroom, lack of handrails on the stairs or have poor lighting? No Hearing Evaluation: may have slight decreased hearing on the left. PHYSICAL EXAM BP 116/64 (BP Site: Left Arm, BP Position: Sitting, BP Cuff Size: Large Adult) Pulse (!) 54 Ht 171.5 cm (5' 7.5 ) Wt 116.6 kg (257 lb) (more content not included)...[facility]06-02-2023 Instructions * Patient Instructions* Cholo Soriano MD - 04/24/2023 8:36 AM EDT Please bring in copies of your power of finance attorney for health care and living will. Please get labs done on or after 10/09/2023 prior to your next visit. documented in this encounterAvita [facility] System06-02-2023 History of Present illness Narrative* Cholo Soriano MD - 04/24/2023 8:00 AM EDT Medicare Yearly Visit Medical B eligibilty date NA Date of last exam 04/11/2022 PAST MEDICAL HISTORY PAST MEDICAL HISTORY Diagnosis Date Acquired hypothyroidism 07/16/2016 Continue home Levothyroxine dose. Calcaneal spur 11/01/2007 Diaphragmatic hernia without mention of obstruction or gangrene Encounter for gynecological examination 04/03/2021 Seeing TIRE TRUCKER Essential hypertension 09/24/2010 On Atenolol and HCTZ Generalized osteoarthrosis, unspecified site 02/11/2007 GERD without esophagitis Hip arthritis 07/23/2009 History of cardiac radiofrequency ablation Hyperparathyroidism, unspecified (HCC) s/p PV! 06/23/17 Hyperuricemia 06/06/2013 Lumbar compression fracture (HCC) 04/15/2017 Lumbar degenerative disc disease 04/15/2017 Mixed hyperglyceridemia 12/15/2016 Morbid obesity due to excess calories ([facility]) 07/03/[address] Multiple lung nodules on CT 08/24/2018 Obstructive sleep apnea syndrome 06/24/2017 On CPAP at home. 7 cm pressure Oropharyngeal bleeding 06/24/2017 Happened intraop. Unclear etiology. Initial ENT evaluation reportedly did not reveal any clear source of bleeding. Patient received protamine for heparin reversal intraop and was successfully extubated. Plan: No further AC while in the CICU. F/u ENT recommendations.. Continue Dexamethasone to preevent airway edema. Monitored in the ICU and transferred to the [facility]. - discussed with the ENT team, r Osteopenia Paroxysmal atrial fibrillation (HCC) Personal history of colonic polyps Colon polyps S/P ablation of atrial fibrillation 06/24/2017 Date of procedure 06/23/17. Indication: persistent atrial fibrillation. 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 Unspecified hemorrhoids without mention of complication Hemorrhoids Vitamin D deficiency 08/17/2013 PAST SURGICAL HISTORY PAST SURGICAL HISTORY Procedure Laterality Date COLONOSCOP W/ OR W/O BRSH SPEC 09/28/2014 Colonoscopy COLONOSCOP W/ OR W/O [facility] SPEC 04/11/2019 Colonoscopy, repeat 5 years COLONOSCOPY 03/29/2001 Repeat in EGD 11/06/2003 for c/o chest pain EGD W/O BRSH SPECIMEN W/BX 05/20/2011 HEART SURGERY HX KNEE SCOPE,DIAGNOSTIC Arthroscopy, knee right LEFT HEART CATH,PERCUTANEOUS LIGATE FALLOPIAN TUBE PAST SURGICAL HISTORY OF cataracts bilateral PAST SURGICAL HISTORY OF 06/23/2017 heart ablation PAST SURGICAL HISTORY OF 08/17/2018 heart ablation TOTAL HIP REPLACEMENT 04/08/2010 right hip TOTAL KNEE REPLACEMENT 04/14/2007 Knee replacement, total/rt TOTAL KNEE REPLACEMENT 1997 Knee replacement, total lt VAGINAL HYSTERECTOMY 1991 Hysterectomy, vaginal [fibroids and bleeding[[ ALLERGIES: Sulfa (Sulfonamide Antibiotics), Lodine [Etodolac], and Penicillins Medications reviewed: Yes FAMILY HISTORY FAMILY HISTORY Problem Relation Age of Onset Diabetes Mother Thyroid Mother other (Other) Mother colon polyps - not CA Heart Father other (Other) Brother colon polyps- not CA Cancer Daughter 4 neuroblastoma SOCIAL HISTORY: SOCIAL HISTORY Social History Tobacco Use Smoking status: Never Smoker Smokeless tobacco: Never Used Substance Use Topics Alcohol use: Never Drug use: No Katelynn works out regularly 2 times per week with an instructor and pool 2-3 days a week. She watches her diet for sodium, low fat and low cholesterol most of the time. List of current specialists seen: Dr. Oswald (Cardio), Dr. Moore (ortho: Knee and Hip) and TIRE TRUCKER Dr. Mehta (Pulm) for ROZ Dr. Ashley (Gen Surg) thyroid nodule End of Live Planning discussed including patients advanced directive wishes: Yes I am willing to follow Katelynn's advanced directives. PHQ-2 / Depression screen Depression Screening 04/01/2021 04/11/2022 10/15/2022 04/24/2023 PHQ-2 Score 0 0 2 1 PHQ-9 Score 1 - - - REECE-2 Total Score - - - - Depression screening tool completed and reviewed. Based on score and interview, patient is not at risk for depression. Screening tool discussed with patient, and I recommended no further interventionat this time. Functional Ability/Safety Screen 1. Was the patient's timed Up and Go test unsteady or longer than 30 seconds? No 2. Does the patient need help with the phone, transportation, shopping,preparing meals, housework, laundry, medications or managing money? No 3. Does your home have rugs in the hallway (Y), lack of grab bars in the bathroom, lack of handrails on the stairs or have poor lighting? No Hearing Evaluation: may have slight decreased hearing on the left. PHYSICAL EXAM BP 116/64 (BP Site: Left Arm, BP Position: Sitting, BP Cuff Size: Large Adult) Pulse (!) 54 Ht 171.5 cm (5' 7.5 ) Wt 116.6 kg (257 lb) BMI 39.66 kg/m Alert and oriented X 3: YES Body mass index is 39.66 kg/m . Visual acuity: sees optho See below ASSESSMENT/PLAN: 73 year old female The following prevention plan was discussed during the office visit and provided to the patient: See below Cholo Soriano MD Chief Complaint Patient presents with: Medicare Wellness Exam HPI Katelynn Campuzano is a 73 year old female who presents here today for Chronic Medical Conditions. and Medicare Annual Visit. Office visit - Medicare wellness 04/23/2023 Patient with Hx hypothyroidism, HTN, GERD, hyperlipidemia, A. Fib, ROZ on CPAP, Hx of lung nodules,obesity, Hx of colon polyps, arthritis, osteopenia as well as those reviewed and addressed below and in ROS. Patient has ronaldo doing well with no new issues or concerns. Office visit - 6 month follow up 10/15/2022 Patient with Hx hypothyroidism, HTN, GERD, hyperlipidemia, A. Fib, ROZ on CPAP, Hx of lung nodules,obesity, Hx of colon polyps, arthritis, osteopenia as well as those reviewed and addressed below and in ROS. Patient has had some right rib pain at night time. In February fell and had fractures on the right ribs. The pain is intermittent and now only happens when laying on her side at night. No pain with breathing or coughing. Seeing Pulm for her lung nodules and Dr. Alexander for ROZ. Past medical history, appointments, medications, allergies reviewed. Previous Medical History PAST MEDICAL HISTORY Diagnosis Date Acquired hypothyroidism 07/16/2016 Continue home Levothyroxine dose. 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 Essential hypertension 09/24/2010 On Atenolol and HCTZ Generalized osteoarthrosis, unspecified site 02/11/2007 GERD without esophagitis Gilbert syndrome 11/13/2021 Hip arthritis 07/23/2009 History of cardiac radiofrequency ablation Hyperlipidemia, mixed 10/04/2021 Hyperparathyroidism, unspecified (HCC) s/p PV! 06/23/17 Hyperuricemia 06/06/[address] 04/11/2022 DPA: Sherman () Low serum vitamin B12 04/08/2021 Lumbar compression fracture (HCC) 04/15/2017 Lumbar degenerative disc disease 04/15/2017 Medicare annual wellness visit, subsequent 04/03/2021 Last Done: 04/03/2021 Mixed hyperglyceridemia 12/15/2016 Morbid obesity due to excess calories (HCC) 07/03/[address] nodules [address] 08/24/2018 Obesity, Class II, BMI 35-39.9 07/03/2016 Obstructive sleep apnea syndrome 06/24/2017 On CPAP at home. 7 cm pressure Oropharyngeal bleeding 06/24/2017 Happened intraop. Unclear etiology. Initial ENT evaluation reportedly did not reveal any clear source of bleeding. Patient received protamine for heparin reversal intraop and was successfully extubated. Plan: No further AC while in the CICU. F/u ENT recommendations.. Continue Dexamethasone to preevent airway edema. Monitored in the ICU and transferred to the [facility]. - discussed with the ENT team, r Osteopenia Paroxysmal atrial fibrillation (HCC) Personal history of colonic polyps Colon polyps S/P ablation of atrial fibrillation 06/24/2017 Date of procedure 06/23/17. Indication: persistent atrial fibrillation. 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 Unspecified hemorrhoids without mention of complication Hemorrhoids Vitamin D deficiency 08/17/2013 Previous Surgical History PAST SURGICAL HISTORY Procedure Laterality Date ARTHROSCOPY KNEE DIAGNOSTIC W/WO SYNOVIAL BX SPX Arthroscopy, knee right ARTHRP ACETBLR/PROX FEM PROSTC AGRFT/ALGRFT 04/08/2010 right hip ARTHRP KNE CONDYLE&PLATU MEDIAL&LAT COMPARTMENTS 04/14/2007 Knee replacement, total/rt ARTHRP KNE CONDYLE&PLATU MEDIAL&LAT COMPARTMENTS 1997 Knee replacement, total lt COLONOSCOPY 03/29/2001 Repeat in COLONOSCOPY FLX DX W/COLLJ SPEC WHEN PFRMD 09/28/2014 Colonoscopy COLONOSCOPY FLX DX W/COLLJ SPEC WHEN PFRMD 04/11/2019 Colonoscopy, repeat 5 years EGD 11/06/2003 for c/o chest pain EGD TRANSORAL BIOPSY SINGLE/MULTIPLE 05/20/2011 HEART SURGERY HX LEFT HEART CATH,PERCUTANEOUS LIG/TRNSXJ FLP TUBE ABDL/VAG APPR UNI/BI PAST SURGICAL HISTORY OF cataracts bilateral PAST SURGICAL HISTORY OF 06/23/2017 heart ablation PAST SURGICAL HISTORY OF 08/17/2018 heart ablation VAGINAL HYSTERECTOMY UTERUS 250 GM/< 1992 Hysterectomy, vaginal [fibroids and bleeding[[ Family History FAMILY HISTORY Problem Relation Age of Onset Diabetes Mother Thyroid Mother other (Other) Mother colon polyps - not CA Heart Father other (Other) Brother colon polyps- not CA Cancer Daughter 4 neuroblastoma Patient Allergies ALLERGIES Allergen Reactions Sulfa (Sulfonamide * Hives Penicillins Unknown Current Medications Current Outpatient Medications on File Prior to Visit Medication Sig allopurinol (ZYLOPRIM) 300 mg tablet Take 1 tablet by mouth twice daily. hydroCHLOROthiazide (HYDRODIURIL, ESIDRIX) 25 mg tablet Take 1 tablet by mouth once daily. levothyroxine (SYNTHROID) 25 mcg tablet Take 1 tablet by mouth daily before breakfast. cyanocobalamin (VITAMIN B-12) 1,000 mcg tab Take 1 tablet by mouth once daily. Cholecalciferol, Vitamin D3, (VITAMIN D-3) 50 mcg (2,000 unit) cap Take 1 capsule by mouth once daily. XARELTO 20 mg tablet TAKE 1 TABLET BY MOUTH EVERY DAY WITH DINNER lisinopril (ZESTRIL, PRINIVIL) 5 mg tablet Take 5 mg by mouth once daily. flecainide (TAMBOCOR) 150 mg tablet Take 0.5 tablets by mouth twice daily. acetaminophen (TYLENOL) 500 mg tablet Take 1,000 mg by mouth at bedtime as needed. metoprolol tartrate, short acting, (LOPRESSOR) 12.5 mg tab Take 12.5 mg by mouth every 12 hours. No current facility-administered medications on file prior to visit. Social History Social History Tobacco Use Smoking status: Never Smokeless tobacco: Never Substance Use Topics Alcohol use: Never Drug use: No Review of Symptoms REVIEW OF SYSTEMS GENERAL: No unintentional weight loss, malaise or fevers HEENT: Negative for frequent or significant headaches, No changes in hearing or vision, no nose bleeds or other nasal problems NECK: Negative for lumps, goiter, pain and significant neck swelling RESPIRATORY: Negative for cough, hemoptysis, wheezing, increased COPD, dyspnea or shortness of breath CARDIOVASCULAR: Negative for chest pain, leg swelling, hypertension, CHF or significant palpitations GI: No nausea, vomiting, or diarrhea, No heartburn or reflux symptoms, and no blood : No history of dysuria, blood. MUSCULOSKELETAL: Negative for new or changes in typical joint pain or swelling, back pain or musclepain SKIN: Negative for lesions, rash, and itching. Has a lump epigastrically she thinks maybe a cyst. No tenderness. PSYCH: Negative for sleep disturbance, mood disorder and recent psychosocial stressors HEMATOLOGY/LYMPHOLOGY: Negative for prolonged bleeding, bruising easily or swollen nodes ENDOCRINE: Negative for cold or heat intolerance, polyuria, polydipsia and goiter NEURO: No history of headaches, syncope, paralysis, seizures or tremors EXAM: BP 116/64 (BP Site: Left Arm, BP Position: Sitting, BP Cuff Size: Large Adult) Pulse (!) 54 Ht 171.5 cm (5' 7.5 ) Wt 116.6 kg (257 lb) BMI 39.66 kg/m Last 4 Encounter Wt Readings: Date: Wt: 04/24/2023 116.6 kg (257 lb) 11/05/2022 119.3 kg (263 lb) 10/22/2022 118.8 kg (262 lb) 10/20/2022 117.9 kg (260 lb) General Appearance: Well appearing, alert, in no acute distress, well-hydrated, well nourished.. Skin: Skin color, texture, turgor normal, no suspicious rashes or lesions. Head: Normocephalic, no masses, lesions, tenderness or abnormalities. Eyes: Anicteric sclera. Pupils are equally round and reactive to light. Extraocular movements are intact. . Ears: External ears, TM's normal, canals clear. Nose/Sinuses: Nares normal, septum midline, mucosa normal, no drainage or sinus tenderness. Oropharynx: Lips, mucosa, and tongue normal, teeth and gums normal, oropharynx normal. Neck: Supple, no adenopathy; thyroid symmetric, normal size, no bruits. Lungs: Lungs clear to auscultation. No wheezing, rhonchi, rales.. Heart: RRR without murmur, gallop, or rubs. No ectopy. Abdomen: Normal abdominal exam, Abdomen soft, non-tender. Bowel sounds normal. No masses, organomegaly. Extremities: No deformities, edema, skin discoloration, Good capillary refill. . Musculoskeletal: Muscular strength intact, No joint swelling, deformity, or tenderness. Peripheral Pulses: Normal. Neurologic: Gait normal. Reflexes normal and symmetric. Sensation to light touch and crainal nerves2-12 intact.. Health Maintenance List BP CONTROLLED (<130/80) Never done ADVANCE DIRECTIVE DISCUSSION due on 11/23/2022 MAMMOGRAM due on 10/10/2023 ANNUAL PCP TEAM CHRONIC DISEASE VISIT due on 11/05/2023 COLORECTAL CANCER SCREENING due on 04/11/2024 DIABETES SCREEN due on 04/14/2026 LIPID SCREEN due on 04/14/2028 DTAP,TDAP,TD(4 - Td or Tdap) due on 09/02/2032 BONE DENSITY Completed INFLUENZA Completed HEPATITIS C SCREENING Completed SHINGRIX VACCINE Completed COVID-19 VACCINE Completed PNEUMOCOCCAL: 65+ Completed Data reviewed Component Latest Ref Rng & Units 03/24/2022 04/28/2022 04/14/2023 WBC 3.70 - 11.00 k/uL 7.87 RBC 3.90 - 5.20 m/uL 4.00 Hemoglobin 11.5 - 15.5 g/dL 12.2 Hematocrit 36.0 - 46.0 % 38.2 MCV 80.0 - 100.0 fL 95.5 MCH 26.0 - 34.0 pg 30.5 MCHC 30.5 - 36.0 g/dL 31.9 RDW-CV 11.5 - 15.0 % 13.4 Platelet Count 150 - 400 k/uL 285 MPV 9.0 - 12.7 fL 11.1 Neut% % 59.2 Abs Neut (ANC) 1.45 - 7.50 k/uL 4.67 Lymph% % 31.3 Abs Lymph 1.00 - 4.00 k/uL 2.46 [facility]% % 6.[address] [facility] <0.87 k/uL 0.50 Eosin% % 1.8 Abs Eosin <0.46 k/uL 0.14 Baso% % 0.9 Abs Baso <0.11 k/uL 0.07 Immature Gran % % 0.4 IMMATURE GRANS (ABS) <0.10 k/uL 0.03 NRBC /100 WBC 0.0 Absolute nRBC <0.01 k/uL <0.01 DTYPE Auto Protein, Total 6.3 - 8.0 g/dL 7.2 7.2 Albumin 3.9 - 4.9 g/dL 4.6 4.4 Calcium 8.5 - 10.2 mg/dL 10.0 10.0 Bilirubin, Total 0.2 - 1.3 mg/dL 1.1 0.8 Alkaline Phosphatase 34 - 123 U/L 111 103 AST 13 - 35 U/L 16 27 ALT 7 - 38 U/L 12 15 Glucose 74 - 99 mg/dL 97 78 BUN 7 - 21 mg/dL 23 (H) 19 Creatinine 0.58 - 0.96 mg/dL 0.68 0.80 Sodium 136 - 144 mmol/L 136 141 Potassium 3.7 - 5.1 mmol/L 4.2 4.7 Chloride 97 - 105 mmol/L 101 103 CO2 22 - 30 mmol/L 25 20 (L) Anion Gap 9 - 18 mmol/L 10 18 eGFR >=60 mL/min/1.73m 92 77 Color Yellow Light Yellow Clarity Clear Clear Glucose, Urine Trace, Negative Negative Bilirubin, Urine Negative Negative Ketones, Urine Trace, Negative Negative Specific [place], Ur 1.005 - 1.030 1.021 Hemoglobin/Blood,Ur Negative, Trace Negative pH, Urine 5.0 - 8.0 6.0 Protein, Urine Trace, Negative Trace Urobilinogen Negative Negative Nitrites Negative Negative Leukest Negative, 25 Leidy/uL Negative WBC, Urine 0-5 /HPF 0-5 /HPF RBC, Urine 0-3 /HPF 0-3 /HPF Epithelial Cells /HPF Few Non-Squamous Epithelial Cells None Seen /HPF Few (A) Total Cholesterol, Nonfasting <200 mg/dL 185 179 Triglycerides, Nonfasting <150 mg/dL 173 (H) 204 (H) HDL Cholesterol, Nonfasting >39 mg/dL 39 (L) 35 (L) LDL Cholesterol, Nonfasting <100 mg/dL 111 (H) 103 (H) Non HDL Cholesterol, Nonfasting <130 mg/dL 146 (H) 144 (H) VLDL Cholesterol, Nonfasting <30 mg/dL 35 (H) 41 (H) Total Chol/HDL Ratio, Nonfasting <5.10 mg/dL 4.74 5.11 (H) LDL/HDL Ratio, Nonfasting <2.54 mg/dL 2.85 (H) 2.94 (H) TSH 0.270 - 4.200 mIU/L 2.360 2.110 Vitamin B12 232 - 1,245 pg/mL 661 762 Uric Acid 2.5 - 6.6 mg/dL 3.5 3.4 Folate >4.7 ng/mL 14.0 A/P ASSESSMENT/PLAN: 1. Medicare annual wellness visit, subsequent - ICD9: V70.0, ICD10: Z00.00 (primary diagnosis) - Counseled on healthy diet and regular exercise - Calcium intake with supplements or by diet of 1000 mg/day for under 50, 1200- 1500 mg/day for 50+ - Discussed need and benefit for weight loss. BMI 39.66 kg/(m^2) - Follow up for annual exam in one year 2. Essential hypertension - ICD9: 401.9, ICD10: I10 - Controlled - Continue current medications - Recommend home blood pressure monitoring, to bring results to next visit - Encouraged sodium restriction, DASH or Mediterranean diet - Recommend regular aerobic exercise 3. Hyperlipidemia, mixed - ICD9: 272.2, ICD10: E78.2 - Controlled - Counseled on healthy diet and regular exercise - cont current Tx. 4. Acquired hypothyroidism - ICD9: 244.9, ICD10: E03.9 - Instructed patient on importance of taking on an empty stomach either first thing in the morning or at bedtime. - continue current dose of Synthroid 5. GERD without esophagitis - ICD9: 530.81, ICD10: K21.9 - controlled via diet. 6. Thyroid nodule - ICD9: 241.0, ICD10: E04.1 - management per General surgery 7. Hyperparathyroidism (HCC) - ICD9: 252.00, ICD10: E21.3 - labs were ok. 8. Paroxysmal atrial fibrillation (HCC) - ICD9: 427.31, ICD10: I48.0 - management per cardio. On chronic anticoagulation. 9. Situational depression - ICD9: 309.0, ICD10: F43.21 - stable not needing meds. 10. Hyperuricemia - ICD9: 790.6, ICD10: E79.0 - controlled with allopurinol. 11. Obesity, Class II, BMI 35-39.9 - ICD9: 278.00, ICD10: E66.9 Weight decreasing - Behavioral intervention 12. Obstructive sleep apnea syndrome - ICD9: 327.23, ICD10: G47.33 - management per sleep med. 13. Low serum vitamin B12 - ICD9: 266.2, ICD10: E53.8 - cont replacement Requested Prescriptions Signed Prescriptions Disp Refills levothyroxine (SYNTHROID) 25 mcg tablet 90 tablet 3 Sig: Take 1 tablet by mouth daily before breakfast. F/u 6 months check BMP, Lipid and TSH prior. I spent a total of 40 minutes on the date of the service which included preparing to see the patient, [id number] patient care, completing clinical documentation, performing a medically appropriate examination, counseling and educating the patient/family/caregiver and ordering medications, tests, or procedures. Cholo Soriano MD documented in this encounterAvita [facility] System03-14-2023 History of Past illness Narrative* Problem Noted Date Resolved Date IRB 18-804: [facility] Using [employer] for Chronic Care of Patients with AF after Ablation Procedure- Randomized Study 12/02/2018 05/13/2019 Sciatica of right side 08/11/2017 8 A-fib 06/24/2017 07/06/2017 Lumbar compression fracture 04/15/201703/24 Paronychia of finger 05/14/2016 12/17/2016 Atrial fibrillation, persistent 09/04/2015 12/27/2018 Overview: S/p DCCV Oct 2016 and PV! Jun 23 2017. [id number] risk score: 3. On Flecainide and chronic AC with Rivaroxaban. Plan: Monitor in the CICU Will hold AC for now due to concern for oropharynx bleeding after PVI. Daily ECgs Continue Flecainide F/u EP recs. Vitamin D deficiency 08/17/2013 01/07/2018 Secondary hyperparathyroidism, non-renal 005 01/07/2018 Abdominal pain, left upper quadrant 07/17/2016 Hyperparathyroidism, unspecified 12/22/2006 documented as of this encounter (statuses as of 02/03/2023) [facility] Miscellaneous Notes* Telephone Encounter - Ashley Posadas - 02/03/2023 2:30 PM EDT We had penciled Katelynn in for surgery on Thursday, April 06, 2023. I called to check on her and see how she was doing and to see if we were moving forward with surgery. She had stated that the physical therapy has helped. The pain has decreased and she feels that she is almost back to normal. She will call if she wants to pursue surgery at a later date. She did her therapy outside [facility] and there is a follow-up note scanned into her chart. Ashley Posadas documented in this encounterAvita Health System01-06-2023 History of Past illness Narrative* Problem Noted Date Resolved Date IRB 18-655: [facility] Using [employer] for Chronic Care of Patients with AF after Ablation Procedure- Randomized Study 12/02/2018 05/13/2019 Sciatica of right side 08/11/2017 8 A-fib 06/24/2017 07/06/2017 Lumbar compression fracture 04/15/201703/24 Paronychia of finger 05/14/2016 12/17/2016 Atrial fibrillation, persistent 09/04/2015 12/27/2018 Overview: S/p DCCV Oct 2016 and PV! Jun 23 2017. [id number] risk score: 3. On Flecainide and chronic AC with Rivaroxaban. Plan: Monitor in the CICU Will hold AC for now due to concern for oropharynx bleeding after PVI. Daily ECgs Continue Flecainide F/u EP recs. Vitamin D deficiency 08/17/2013 01/07/2018 Secondary hyperparathyroidism, non-renal 005 01/07/2018 Abdominal pain, left upper quadrant 07/17/2016 Hyperparathyroidism, unspecified 12/22/2006 documented as of this encounter (statuses as of 11/28/2022) [facility] History of Present illness Narrative* Nirmal Fisher, DO - 11/27/2022 1:29 PM EST CONSULT ORTHOPAEDIC: HIP PRIMARY CARE PHYSICIAN: Cholo Soriano MD REFERRING PROVIDER: Cholo Soriano [address] [facility] [address] ASSESSMENT & PLAN: Impression: Left Hip Moderate Degenerative Osteoarthritis, Primary , Trochanteric Bursitis, Low Back Pain, and SI Joint Pain Patient is suffering mostly from trochanteric bursitis with pain localized over the proximal trochanteric bursa and overlying the insertion of the iliotibial band. Patient does have radiographic findings for moderate DJD of the left hip and she does have some referred pain to the medial aspect of her proximal thigh. I think she would greatly benefit from some formal physical therapy for trochanteric bursitis. We wrote her prescription get a handicap parking placard. If after 6 weeks of formal physical therapy her trochanteric bursitis is not improving we will see her back and I will perform aleft trochanteric bursa steroid injection. All questions concerns reasonable expectations were discu ssed. We will see her back in office for repeat evaluation. The patient has been ordered: Physical therapy ACTIVE PROBLEM LIST Disorder of Bone and Cartilage, Unspecified Personal History of Colonic Polyps Gerd Without Esophagitis Tuberculin Test Reaction Arthritis Hip Arthritis Essential Hypertension Diaphragmatic Hernia Hyperuricemia Situational Depression Chronic Anticoagulation Obesity, Class II, BMI 35-39.9 Acquired Hypothyroidism Lumbar Degenerative Disc Disease S/P Ablation of Atrial Fibrillation Obstructive Sleep Apnea Syndrome Paroxysmal Atrial Fibrillation (Hcc) Multiple Lung Nodules On CT Osteopenia Encounter for Gynecological Examination Hyperparathyroidism (Hcc) Medicare Annual Wellness Visit, Subsequent Medication Management Low Serum Vitamin B12 Thyroid Nodule Hyperlipidemia, Mixed Gilbert Syndrome Bilateral Renal Cysts Living Will in Place Advance Directive Discussed With Patient Covid-19 Virus Infection SUBJECTIVE CHIEF COMPLAINT: Hip Pain HPI: Katelynn Campuzano is a 72 year old patient here for evaluation and management of Left hip pain.Katelynn Campuzano has had progressive problems with the hip(s) constantly over the past 2 year(s) interfering with activities which include walking 2 blocks, gardening, doing 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 The problem beganlimiting activities 1-3 years ago. Currently the pain in the joint is rated at 9 out of 10 with minimal activity. The pain is chronic and constant and is located in the left buttocks, outer aspect of the hip, thigh, and radiates to back and buttocks. The pain is described as aching, crushing, and excruciating. Relieving factors include rest. There is no specific incident that brought about this pain. Katelynn Campuzano has no additional complaints. FUNCTIONAL STATUS: Walk indoors, such as around the house (1.75 METs) Do light work around the house, such as dusting or washing dishes (2.70 METs) Take care of self, that is eating, dressing, bathing, using the toilet (2.75 METs) Total Joint Athroplasty - Risk Calculator PREVIOUS TREATMENTS: Attempted Weight Loss Medical: Intolerant of NSAIDS REVIEW OF SYSTEMS: PAIN ASSESSMENT: See HPI. MUSCULOSKELETAL: See HPI. Risk Factors for Total Joint Arthroplasty (TJA) Obesity High Risk High: BMI > 40 Moderate: BMI 30-40 Normal: BMI < 30 Diabetes normal High: A1C > 8 Moderate: A1C 7-8 Normal: A1C < 7 Smoking normal High: Current smoker Normal: Non smoker Anemia normal High: Hgb < 11.5 (women) N/A: Hgb >= 11.5 (women) Nutritional Status normal High: Alb<3.4, or prealb<15, or serum transferrin<200, or total lymphocyte count<1500 Normal: normal labs COPD normal High: dx of COPD Normal: no dx of COPD MRSA normal High: dx of MRSA or positive lab test Normal: no MRSA CKD normal High: eGFR<60 Moderate: eGFR 60-89 Normal: eGFR>90 Hx of DVT / PE normal High: dx of DVT / PE Normal: no dx of DVT / PE Narcotics Use normal High:NarxCare >=300 Moderate: 100-299 Normal: 0-99 ROZ High Risk High: dx of ROZ N/A: no dx of ROZ Coagulation Moderate Risk High:PT Sec>13, or PT INR>1.3, or APTT>32.4, or Plt ct<150k Moderate: on anticoag but none of the above Normal: none Obesity: Weight management and obesity medicine (bariatric) program recommended BMI Readings from Last 3 Encounters: 11/05/22 : 41.19 kg/m 10/22/22 : 41.04 kg/m 10/20/22 : 40.72 kg/m Obstructive Sleep Apnea (ROZ) Coagulation PT Sec (sec) Date Value 04/17/2020 12.2 06/24/2017 12.7 PT INR (no units) Date Value 04/17/2020 1.1 06/24/2017 1.2 APTT (sec) Date Value 04/17/2020 33.0 06/25/2017 27.3 Platelet Count (k/uL) Date Value 09/29/2022 243 10/01/2021 252 03/27/2021 238 Other Risk Factors None PAST MEDICAL HISTORY Diagnosis Date Acquired hypothyroidism 07/16/2016 Continue home Levothyroxine dose. 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 Essential hypertension 09/24/2010 On Atenolol and HCTZ Generalized osteoarthrosis, unspecified site 02/11/2007 GERD without esophagitis Gilbert syndrome 11/13/2021 Hip arthritis 07/23/2009 History of cardiac radiofrequency ablation Hyperlipidemia, mixed 10/04/2021 Hyperparathyroidism, unspecified (HCC) s/p PV! 06/23/17 Hyperuricemia 06/06/[address] 04/11/2022 DPA: Sherman () Low serum vitamin B12 04/08/2021 Lumbar compression fracture (HCC) 04/15/2017 Lumbar degenerative disc disease 04/15/2017 Medicare annual wellness visit, subsequent 04/03/2021 Last Done: 04/03/2021 Mixed hyperglyceridemia 12/15/2016 Morbid obesity due to excess calories (HCC) 07/03/[address] 08/24/2018 Obesity, Class II, BMI 35-39.9 07/03/2016 Obstructive sleep apnea syndrome 06/24/2017 On CPAP at home. 7 cm pressure Oropharyngeal bleeding 06/24/2017 Happened intraop. Unclear etiology. Initial ENT evaluation reportedly did not reveal any clear source of bleeding. Patient received protamine for heparin reversal intraop and was successfully extubated. Plan: No further AC while in the CICU. F/u ENT recommendations.. Continue Dexamethasone to preevent airway edema. Monitored in the ICU and transferred to the [facility]. - discussed with the ENT team, r Osteopenia Paroxysmal atrial fibrillation (HCC) Personal history of colonic polyps Colon polyps S/P ablation of atrial fibrillation 06/24/2017 Date of procedure 06/23/17. Indication: persistent atrial fibrillation. 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 Unspecified hemorrhoids without mention of complication Hemorrhoids Vitamin D deficiency 08/17/2013 PAST SURGICAL HISTORY Procedure Laterality Date ARTHROSCOPY KNEE DIAGNOSTIC W/WO SYNOVIAL BX SPX Arthroscopy, knee right ARTHRP ACETBLR/PROX FEM PROSTC AGRFT/ALGRFT 04/08/2010 right hip ARTHRP KNE CONDYLE&PLATU MEDIAL&LAT COMPARTMENTS 04/14/2007 Knee replacement, total/rt ARTHRP KNE CONDYLE&PLATU MEDIAL&LAT COMPARTMENTS 1998 Knee replacement, total lt COLONOSCOPY 03/29/2001 Repeat in COLONOSCOPY FLX DX W/COLLJ SPEC WHEN PFRMD 09/28/2014 Colonoscopy COLONOSCOPY FLX DX W/COLLJ SPEC WHEN PFRMD 04/11/2019 Colonoscopy, repeat 5 years EGD 11/06/2003 for c/o chest pain EGD TRANSORAL BIOPSY SINGLE/MULTIPLE 05/20/2011 HEART SURGERY HX LEFT HEART CATH,PERCUTANEOUS LIG/TRNSXJ FLP TUBE ABDL/VAG APPR UNI/BI PAST SURGICAL HISTORY OF cataracts bilateral PAST SURGICAL HISTORY OF 06/23/2017 heart ablation PAST SURGICAL HISTORY OF 08/17/2018 heart ablation VAGINAL HYSTERECTOMY UTERUS 250 GM/< 1992 Hysterectomy, vaginal [fibroids and bleeding[[ FAMILY HISTORY Problem Relation Age of Onset Diabetes Mother Thyroid Mother other (Other) Mother colon polyps - not CA Heart Father other (Other) Brother colon polyps- not CA Cancer Daughter 4 neuroblastoma Social History Tobacco Use Smoking status: Never Smokeless tobacco: Never Substance Use Topics Alcohol use: Never Drug use: No ALLERGIES: Sulfa (Sulfonamide Antibiotics), Lodine [Etodolac], and Penicillins MEDICATIONS: Order #: [id number] Order #: [id number] Order #: [id number] Order #: [id number] Order #: [id number] Order #: [id number] Order #: [id number] Order #: [id number] Order #: [id number] Order #: [id number] PHYSICAL EXAM There were no vitals taken for this visit. All other systems deferred. GENERAL: Appears healthy, well-nourished, no deformities. HABITUS: Obese GAIT: Antalgic to the left and Trendelenberg to the left HIP EXAM: Left: ROM: Extension: Normal Flexion: 110 degrees Internal Rotation: 30 degrees External Rotation: 30 degrees Abduction: 40 degrees Adduction: 30 degrees Strength: Abduction 5/5 and Flexion 5/5 Palpation: tenderness over trochanteric bursa Log roll: non-painful. Positive CECILIA/FADIR Straight leg raise: Negative Neurovascular Status: Sensation Intact and Moves foot and ankle up & down DATA: Diagnostic tests reviewed for today's visit: Left hip X-Ray: Moderate degenerative changes The following conditions were addressed during the office visit today: Trochanteric bursitis SIGNATURE: Eber Moore MD PATIENT NAME: Katelynn Campuzano DATE: November 27, 2022 TIME: 2:35 PM documented in this encounterAvita [facility] System01-03-2023 Miscellaneous Notes* Telephone Encounter - Italia Zapata LPN - 11/25/2022 11:36 AM EST Patient has been identified by name and date of : Yes Patient phones for refill(s): Requested Prescriptions Pending Prescriptions Disp Refills allopurinol (ZYLOPRIM) 300 mg tablet 180 tablet 3 Sig: Take 1 tablet by mouth twice daily. hydroCHLOROthiazide (HYDRODIURIL, ESIDRIX) 25 mg tablet 90 tablet 1 Sig: Take 1 tablet by mouth once daily. Refused Prescriptions Disp Refills levothyroxine (SYNTHROID) 25 mcg tablet 90 tablet 3 Sig: Take 1 tablet by mouth daily before breakfast. Date of last office visit in primary care: 10/15/22 Please advise. Thank you. Italia Zapata LPN documented in this encounterAvita Health System12-15-2022 History of Past illness Narrative* Problem Noted Date Resolved Date IRB 18-444: [facility] Using [employer] Platform for Chronic Care of Patients with AF after Ablation Procedure- Randomized Study 12/02/2018 05/13/2019 Sciatica of right side 08/11/2017 8 A-fib 06/24/2017 07/06/2017 Lumbar compression fracture 04/15/201703/24 Paronychia of finger 05/14/2016 12/17/2016 Atrial fibrillation, persistent 09/04/2015 12/27/2018 Overview: S/p DCCV Oct 2016 and PV! Jun 23 2017. [id number] risk score: 3. On Flecainide and chronic AC with Rivaroxaban. Plan: Monitor in the CICU Will hold AC for now due to concern for oropharynx bleeding after PVI. Daily ECgs Continue Flecainide F/u EP recs. Vitamin D deficiency 08/17/2013 01/07/2018 Secondary hyperparathyroidism, non-renal 005 01/07/2018 Abdominal pain, left upper quadrant 07/17/2016 Hyperparathyroidism, unspecified 12/22/2006 documented as of this encounter (statuses as of 11/06/2022) [facility] Miscellaneous Notes* Telephone Encounter - Denita Richardson RN - 11/06/2022 4:45 PM EST Pt called and is notified of providers results. Pt voices understanding. Denita Richardson RN * Telephone Encounter - Cholo Soriano MD - 11/06/2022 4:35 PM EST Let patient know x-ray of left hip was read as ok. documented in this encounterAvita Health System12-03-2022 Miscellaneous Notes* Telephone Encounter - Petra Patel LPN - 10/25/2022 9:12 AM EST Patient scheduled 11/05/22. Refused sooner appointment with patient transport orderly. * Telephone Encounter - Zainab Morataya LPN - 10/25/2022 8:54 AM EST Left message for pt to contact office. Zainab Morataya LPN * Telephone Encounter - Cholo Soriano MD - 10/24/2022 5:17 PM EST See if patient able to be seen in officie with Hilda Harden or myself. documented in this encounterAvita Health System12-01-2022 Miscellaneous Notes* Telephone Encounter - Shirley Wise LPN - 10/23/2022 9:54 AM EST Pt returned call and given below test results. Shirley Wise LPN * Telephone Encounter - Ree Ngo RN - 10/23/2022 9:19 AM EST Left message for patient to call office. Ree Ngo RN * Telephone Encounter - Ree Ngo RN - 10/23/2022 9:19 AM EST ----- Message from Magda Pina MD sent at 10/23/2022 8:53 AM EST ----- Notify patient that the LLE venous duplex was negative for dvt. documented in this encounterAvita Health System11-28-2022 History of Present illness Narrative* Magda Pina MD - 10/20/2022 8:52 AM EST Nutrition Assistant offered: Patient declines. Katelynn Campuzano is a 72 year old female who presents for problem visit. Having left lower extremity pain on and off for a few weeks. Hurts deep and is concerned for clot. Denies warmth or swelling that she can tell. Is on xarelto. Was seen recently at PCP office but it started just after that. 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 Essential hypertension 09/24/2010 On Atenolol and HCTZ Generalized osteoarthrosis, unspecified site 02/11/2007 GERD without esophagitis Gilbert syndrome 11/13/2021 Hip arthritis 07/23/2009 History of cardiac radiofrequency ablation Hyperlipidemia, mixed 10/04/2021 Hyperparathyroidism, unspecified (HCC) s/p PV! 06/23/17 Hyperuricemia 06/06/[address] 04/11/2022 DPA: Sherman () Low serum vitamin B12 04/08/2021 Lumbar compression fracture (HCC) 04/15/2017 Lumbar degenerative disc disease 04/15/2017 Medicare annual wellness visit, subsequent 04/03/2021 Last Done: 04/03/2021 Mixed hyperglyceridemia 12/15/2016 Morbid obesity due to excess calories (HCC) 07/03/[address] nodules on [address] 08/24/2018 Obesity, Class II, BMI 35-39.9 07/03/2016 Obstructive sleep apnea syndrome 06/24/2017 On CPAP at home. 7 cm pressure Oropharyngeal bleeding 06/24/2017 Happened intraop. Unclear etiology. Initial ENT evaluation reportedly did not reveal any clear source of bleeding. Patient received protamine for heparin reversal intraop and was successfully extubated. Plan: No further AC while in the CICU. F/u ENT recommendations.. Continue Dexamethasone to preevent airway edema. Monitored in the ICU and transferred to the [facility]. - discussed with the ENT team, r Osteopenia Paroxysmal atrial fibrillation (HCC) Personal history of colonic polyps Colon polyps S/P ablation of atrial fibrillation 06/24/2017 Date of procedure 06/23/17. Indication: persistent atrial fibrillation. 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 Unspecified hemorrhoids without mention of complication Hemorrhoids Vitamin D deficiency 08/17/2013 PAST SURGICAL HISTORY Procedure Laterality Date ARTHROSCOPY KNEE DIAGNOSTIC W/WO SYNOVIAL BX SPX Arthroscopy, knee right ARTHRP ACETBLR/PROX FEM PROSTC AGRFT/ALGRFT 04/08/2010 right hip ARTHRP KNE CONDYLE&PLATU MEDIAL&LAT COMPARTMENTS 04/14/2007 Knee replacement, total/rt ARTHRP KNE CONDYLE&PLATU MEDIAL&LAT COMPARTMENTS 1997 Knee replacement, total lt COLONOSCOPY 03/29/2001 Repeat in COLONOSCOPY FLX DX W/COLLJ SPEC WHEN PFRMD 09/28/2014 Colonoscopy COLONOSCOPY FLX DX W/COLLJ SPEC WHEN PFRMD 04/11/2019 Colonoscopy, repeat 5 years EGD 11/06/2003 for c/o chest pain EGD TRANSORAL BIOPSY SINGLE/MULTIPLE 05/20/2011 HEART SURGERY HX LEFT HEART CATH,PERCUTANEOUS LIG/TRNSXJ FLP TUBE ABDL/VAG APPR UNI/BI PAST SURGICAL HISTORY OF cataracts bilateral PAST SURGICAL HISTORY OF 06/23/2017 heart ablation PAST SURGICAL HISTORY OF 08/17/2018 heart ablation VAGINAL HYSTERECTOMY UTERUS 250 GM/< 1992 Hysterectomy, vaginal [fibroids and bleeding[[ FAMILY HISTORY Problem Relation Age of Onset Diabetes Mother Thyroid Mother other (Other) Mother colon polyps - not CA Heart Father other (Other) Brother colon polyps- not CA Cancer Daughter 4 neuroblastoma Social History Tobacco Use Smoking status: Never Smokeless tobacco: Never Substance Use Topics Alcohol use: Never Drug use: No Current Outpatient Medications Medication Sig FLUoxetine (PROZAC) 20 mg capsule Take 1 capsule by mouth once daily. hydroCHLOROthiazide (HYDRODIURIL, ESIDRIX) 25 mg tablet Take 1 tablet by mouth once daily. levothyroxine (SYNTHROID) 25 mcg tablet Take 1 tablet by mouth daily before breakfast. allopurinol (ZYLOPRIM) 300 mg tablet Take 1 tablet by mouth twice daily. cyanocobalamin (VITAMIN B-12) 1,000 mcg tab Take 1 tablet by mouth once daily. Cholecalciferol, Vitamin D3, (VITAMIN D-3) 50 mcg (2,000 unit) cap Take 1 capsule by mouth once daily. XARELTO 20 mg tablet TAKE 1 TABLET BY MOUTH EVERY DAY WITH DINNER lisinopril (ZESTRIL, PRINIVIL) 5 mg tablet Take 5 mg by mouth once daily. flecainide (TAMBOCOR) 150 mg tablet Take 0.5 tablets by mouth twice daily. acetaminophen (TYLENOL) 500 mg tablet Take 1,000 mg by mouth at bedtime as needed. metoprolol tartrate, short acting, (LOPRESSOR) 12.5 mg tab Take 12.5 mg by mouth every 12 hours. No current facility-administered medications for this visit. Allergies As of Date: 10/20/2022 Allergen Noted Reaction SULFA (SULFONAMIDE ANTIBIOTICS) 09/02/2005 Hives KYRIEINE [ETODOLAC] 07/11/2009 Unknown PENICILLINS 09/02/2005 Unknown Fully Assessed 10/15/2022 REVIEW OF SYSTEMS Abdomen: no pain, no constipation, no diarrhea. Bladder: no dysuria. Breast: No breast lumps, nipple d/c, overlying skin changes, redness or skin retraction. Expanded ROS: GENERAL: Negative for significant weight loss, fever Allergies and current medication updated:Yes EXAM: BP 126/74 Wt 260 lb (117.9kg) GENERAL: pleasant, female in no apparent distress Normocephalic, atraumatic, mucus membranes moist, and no lesions NECK: Supple, full range of motion, no adenopathy, and thyroid normal DERMATOLOGY: Normal, without lesions, non-icteric, and non-hirsute BREAST: soft, non-tender, symmetric, no dominant mass, normal nipple-areolar complex, no lymphadenopathy, and no nipple discharge ABDOMEN: soft, non-tender, and no masses PELVIC: declined BIMANUAL: declined NEURO: alert and oriented x3,exam grossly non-focal EXTREMITIES: left leg tender to palpation on posterior aspect thigh and calf. No warmth, no erythema, no swelling. ASSESSMENT AND PLAN: Encounter Diagnosis ICD-10-CM 1. Left leg pain M79.605 US LEG VEIN DVT UNL VAS LAB 2. Routine Screening reviewed with patient - follow up in one year. Medical Decision Making: Problems: Moderate: New problem with uncertain prognosis Data: Unique test(s) ordered: 1 Risk: Low: Low risk from testing/treatment Medical Decision Making Level: 3 - Low Magda Hanson MD documented in this encounterAv[facility]11-27-2022 History of Past illness Narrative* Problem Noted Date Resolved Date IRB 18-444: [facility] Using [employer] for Chronic Care of Patients with AF after Ablation Procedure- Randomized Study 12/02/2018 05/13/2019 Sciatica of right side 08/11/2017 8 A-fib 06/24/2017 07/06/2017 Lumbar compression fracture 04/15/201703/24 Paronychia of finger 05/14/2016 12/17/2016 Atrial fibrillation, persistent 09/04/2015 12/27/2018 Overview: S/p DCCV Oct 2016 and PV! Jun 23 2017. [id number] risk score: 3. On Flecainide and chronic AC with Rivaroxaban. Plan: Monitor in the CICU Will hold AC for now due to concern for oropharynx bleeding after PVI. Daily ECgs Continue Flecainide F/u EP recs. Vitamin D deficiency 08/17/2013 01/07/2018 Secondary hyperparathyroidism, non-renal 005 01/07/2018 Abdominal pain, left upper quadrant 07/17/2016 Hyperparathyroidism, unspecified 12/22/2006 documented as of this encounter (statuses as of 10/19/2022) [facility] Instructions* Patient Instructions* Cholo Soriano MD - 10/15/2022 12:28 PM EST Please get labs and urine test done on or after 04/03/2023 prior to your next visit. documented in this encounterAvita Health System11-23-2022 History of Present illness Narrative* Cholo Soriano MD - 10/15/2022 11:33 AM EST Chief Complaint Patient presents with: Recheck: 6 month follow up/test results HPI Katelynn Campuzano is a 72 year old female who presents here today for 6 month follow up/results. Patient with Hx hypothyroidism, HTN, GERD, hyperlipidemia, A. Fib, ROZ on CPAP, Hx of lung nodules,obesity, Hx of colon polyps, arthritis, osteopenia as well as those reviewed and addressed below and in ROS. Patient has had some right rib pain at night time. In February fell and had fractures on the right ribs. The pain is intermittent and now only happens when laying on her side at night. No pain with breathing or coughing. Seeing Pulm for her lung nodules and Dr. Alexander for ROZ. Past medical history, appointments, medications, allergies reviewed. Previous Medical History PAST MEDICAL HISTORY Diagnosis Date Acquired hypothyroidism 07/16/2016 Continue home Levothyroxine dose. 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 Essential hypertension 09/24/2010 On Atenolol and HCTZ Generalized osteoarthrosis, unspecified site 02/11/2007 GERD without esophagitis Gilbert syndrome 11/13/2021 Hip arthritis 07/23/2009 History of cardiac radiofrequency ablation Hyperlipidemia, mixed 10/04/2021 Hyperparathyroidism, unspecified (HCC) s/p PV! 06/23/17 Hyperuricemia 06/06/[address] 04/11/2022 DPA: Sherman () Low serum vitamin B12 04/08/2021 Lumbar compression fracture (HCC) 04/15/2017 Lumbar degenerative disc disease 04/15/2017 Medicare annual wellness visit, subsequent 04/03/2021 Last Done: 04/03/2021 Mixed hyperglyceridemia 12/15/2016 Morbid obesity due to excess calories (HCC) 07/03/[address] nodules on CT 08/24/2018 Obesity, Class II, BMI 35-39.9 07/03/2016 Obstructive sleep apnea syndrome 06/24/2017 On CPAP at home. 7 cm pressure Oropharyngeal bleeding 06/24/2017 Happened intraop. Unclear etiology. Initial ENT evaluation reportedly did not reveal any clear source of bleeding. Patient received protamine for heparin reversal intraop and was successfully extubated. Plan: No further AC while in the CICU. F/u ENT recommendations.. Continue Dexamethasone to preevent airway edema. Monitored in the ICU and transferred to the [facility]. - discussed with the ENT team, r Osteopenia Paroxysmal atrial fibrillation (HCC) Personal history of colonic polyps Colon polyps S/P ablation of atrial fibrillation 06/24/2017 Date of procedure 06/23/17. Indication: persistent atrial fibrillation. 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 Unspecified hemorrhoids without mention of complication Hemorrhoids Vitamin D deficiency 08/17/2013 Previous Surgical History PAST SURGICAL HISTORY Procedure Laterality Date ARTHROSCOPY KNEE DIAGNOSTIC W/WO SYNOVIAL BX SPX Arthroscopy, knee right ARTHRP ACETBLR/PROX FEM PROSTC AGRFT/ALGRFT 04/08/2010 right hip ARTHRP KNE CONDYLE&PLATU MEDIAL&LAT COMPARTMENTS 04/14/2007 Knee replacement, total/rt ARTHRP KNE CONDYLE&PLATU MEDIAL&LAT COMPARTMENTS 1997 Knee replacement, total lt COLONOSCOPY 03/29/2001 Repeat in COLONOSCOPY FLX DX W/COLLJ SPEC WHEN PFRMD 09/28/2014 Colonoscopy COLONOSCOPY FLX DX W/COLLJ SPEC WHEN PFRMD 04/11/2019 Colonoscopy, repeat 5 years EGD 11/06/2003 for c/o chest pain EGD TRANSORAL BIOPSY SINGLE/MULTIPLE 05/20/2011 HEART SURGERY HX LEFT HEART CATH,PERCUTANEOUS LIG/TRNSXJ FLP TUBE ABDL/VAG APPR UNI/BI PAST SURGICAL HISTORY OF cataracts bilateral PAST SURGICAL HISTORY OF 06/23/2017 heart ablation PAST SURGICAL HISTORY OF 08/17/2018 heart ablation VAGINAL HYSTERECTOMY UTERUS 250 GM/< 1992 Hysterectomy, vaginal [fibroids and bleeding[[ Family History FAMILY HISTORY Problem Relation Age of Onset Diabetes Mother Thyroid Mother other (Other) Mother colon polyps - not CA Heart Father other (Other) Brother colon polyps- not CA Cancer Daughter 4 neuroblastoma Patient Allergies ALLERGIES Allergen Reactions Sulfa (Sulfonamide * Hives Lodine [Etodolac] Unknown Penicillins Unknown Current Medications Current Outpatient Medications on File Prior to Visit Medication Sig hydroCHLOROthiazide (HYDRODIURIL, ESIDRIX) 25 mg tablet Take 1 tablet by mouth once daily. levothyroxine (SYNTHROID) 25 mcg tablet Take 1 tablet by mouth daily before breakfast. allopurinol (ZYLOPRIM) 300 mg tablet Take 1 tablet by mouth twice daily. cyanocobalamin (VITAMIN B-12) 1,000 mcg tab Take 1 tablet by mouth once daily. Cholecalciferol, Vitamin D3, (VITAMIN D-3) 50 mcg (2,000 unit) cap Take 1 capsule by mouth once daily. XARELTO 20 mg tablet TAKE 1 TABLET BY MOUTH EVERY DAY WITH DINNER lisinopril (ZESTRIL, PRINIVIL) 5 mg tablet Take 5 mg by mouth once daily. flecainide (TAMBOCOR) 150 mg tablet Take 0.5 tablets by mouth twice daily. acetaminophen (TYLENOL) 500 mg tablet Take 1,000 mg by mouth at bedtime as needed. metoprolol tartrate, short acting, (LOPRESSOR) 12.5 mg tab Take 12.5 mg by mouth every 12 hours. No current facility-administered medications on file prior to visit. Social History Social History Tobacco Use Smoking status: Never Smokeless tobacco: Never Substance Use Topics Alcohol use: Never Drug use: No Review of Symptoms REVIEW OF SYSTEMS GENERAL: No weight loss, malaise or fevers NECK: Negative for lumps, goiter, pain and significant neck swelling RESPIRATORY: Negative for cough, hemoptysis, wheezing, COPD, dyspnea. Slight shortness of breath with the COVID. No more just a cough in the evening CARDIOVASCULAR: Negative for chest pain, leg swelling, hypertension, CHF or palpitations GI: No nausea, vomiting, or diarrhea and No heartburn or reflux symptoms ENDOCRINE: Negative for cold or heat intolerance, polyuria, polydipsia and goiter NEURO: No history of headaches, syncope, paralysis, seizures or tremors Psych: has been noticing some slight depression and would like to retry the Prozac. EXAM: BP 122/78 (BP Site: Left Arm, BP Position: Sitting, BP Cuff Size: Large Adult) Pulse (!) 58 Resp 16 Wt 117 kg (258 lb) BMI 40.41 kg/m Last 4 Encounter Wt Readings: Date: Wt: 10/15/2022 117 kg (258 lb) 09/18/2022 117.9 kg (260 lb) 08/29/2022 118.9 kg (262 lb 3.2 oz) 05/07/2022 117.9 kg (260 lb) General Appearance: Well appearing, alert, in no acute distress, well-hydrated, well nourished.. Neck: Supple, no adenopathy; thyroid symmetric, normal size, no bruits. Lungs: Lungs clear to auscultation. No wheezing, rhonchi, rales.. Heart: RRR without murmur, gallop, or rubs. No ectopy. Abdomen: Normal abdominal exam, Abdomen soft, non-tender. Bowel sounds normal. No masses, organomegaly. Extremities: No deformities, edema, skin discoloration, Good capillary refill. . Peripheral Pulses: Normal. Neurologic: Gait with limp. Sensation grossly intact.. Health Maintenance List BP CONTROLLED (<130/80) Never done DEPRESSION ASSESSMENT Never done ANNUAL PCP TEAM CHRONIC DISEASE VISIT due on 04/11/2023 MAMMOGRAM due on 10/10/2023 COLORECTAL CANCER SCREENING due on 04/11/2024 DIABETES SCREEN due on 09/29/2025 LIPID SCREEN due on 09/29/2027 DTAP,TDAP,TD(4 - Td or Tdap) due on 09/02/2032 BONE DENSITY Completed INFLUENZA Completed ADVANCE DIRECTIVE DISCUSSION Completed HEPATITIS C SCREENING Completed SHINGRIX VACCINE Completed COVID-19 VACCINE Completed PNEUMOCOCCAL: 65+ Completed Data reviewed Component Latest Ref Rng & Units 03/24/2022 04/28/2022 09/29/2022 WBC 3.70 - 11.00 k/uL 6.31 RBC 3.90 - 5.20 m/uL 3.71 (L) Hemoglobin 11.5 - 15.5 g/dL 11.5 Hematocrit 36.0 - 46.0 % 34.2 (L) MCV 80.0 - 100.0 fL 92.2 MCH 26.0 - 34.0 pg 31.0 MCHC 30.5 - 36.0 g/dL 33.6 RDW-CV 11.5 - 15.0 % 13.5 Platelet Count 150 - 400 k/uL 243 MPV 9.0 - 12.7 fL 10.1 Neut% % 66.8 Abs Neut (ANC) 1.45 - 7.50 k/uL 4.21 Lymph% % 22.8 Abs Lymph 1.00 - 4.00 k/uL 1.44 [facility]% % 6.[address] [place] <0.87 k/uL 0.41 Eosin% % 1.9 Abs Eosin <0.46 k/uL 0.12 Baso% % 0.6 Abs Baso <0.11 k/uL 0.04 Immature Gran % % 1.4 IMMATURE GRANS (ABS) <0.10 k/uL 0.09 NRBC /100 WBC 0.0 Absolute nRBC <0.01 k/uL <0.01 DTYPE Auto Protein, Total 6.3 - 8.0 g/dL 7.2 Albumin 3.9 - 4.9 g/dL 4.6 Calcium 8.5 - 10.2 mg/dL 10.0 9.3 Bilirubin, Total 0.2 - 1.3 mg/dL 1.1 Alkaline Phosphatase 34 - 123 U/L 111 AST 13 - 35 U/L 16 ALT 7 - 38 U/L 12 Glucose 74 - 99 mg/dL 97 97 BUN 7 - 21 mg/dL 23 (H) 15 Creatinine 0.58 - 0.96 mg/dL 0.68 0.74 Sodium 136 - 144 mmol/L 136 136 Potassium 3.7 - 5.1 mmol/L 4.2 4.0 Chloride 97 - 105 mmol/L 101 100 CO2 22 - 30 mmol/L 25 25 Anion Gap 9 - 18 mmol/L 10 11 eGFR >=60 mL/min/1.73m 92 86 Color Yellow Light Yellow Clarity Clear Clear Glucose, Urine Negative Negative Bilirubin, Urine Negative Negative Ketones, Urine Negative Negative Specific [place], Ur 1.005 - 1.030 1.019 Hemoglobin/Blood,Ur Negative Negative pH, Urine 5.0 - 8.0 6.0 Protein, Urine Negative Negative Urobilinogen Negative Negative Nitrites Negative Negative Leukest Negative Negative WBC, Urine 0-5 /HPF 0-5 /HPF RBC, Urine 0-3 /HPF 0-3 /HPF Epithelial Cells /HPF Few Total Cholesterol, Nonfasting <200 mg/dL 185 162 Triglycerides, Nonfasting <150 mg/dL 173 (H) 211 (H) HDL Cholesterol, Nonfasting >39 mg/dL 39 (L) 32 (L) LDL Cholesterol, Nonfasting <100 mg/dL 111 (H) 88 Non HDL Cholesterol, Nonfasting <130 mg/dL 146 (H) 130 (H) VLDL Cholesterol, Nonfasting <30 mg/dL 35 (H) 42 (H) Total Chol/HDL Ratio, Nonfasting <5.10 mg/dL 4.74 5.06 LDL/HDL Ratio, Nonfasting <2.54 mg/dL 2.85 (H) 2.75 (H) TSH 0.270 - 4.200 mIU/L 2.360 1.600 Vitamin B12 232-1,245 pg/mL 661 Uric Acid 2.5 - 6.6 mg/dL 3.5 A/P ASSESSMENT/PLAN: 1. Essential hypertension - ICD9: 401.9, ICD10: I10 (primary diagnosis) - good control - Continue current medication(s) - Recommended regular aerobic exercise. - Recommend home blood pressure monitoring, to bring results in on next visit - Goal of BP <130/80 2. Hyperlipidemia, mixed - ICD9: 272.2, ICD10: E78.2 - good control - Encouraged following a low fat, low cholesterol diet. - Discussed the benefits of regular aerobic exercise and weight loss. - Encouraged following a low carbohydrate, healthy oil intake diet. - Continue current therapy. 3. Acquired hypothyroidism - ICD9: 244.9, ICD10: E03.9 - Instructed patient on importance of taking on an empty stomach either first thing in the morning or at bedtime. - continue current dose of Synthroid 4. Hyperparathyroidism (HCC) - ICD9: 252.00, ICD10: E21.3 - recent Ca was normal. 5. Paroxysmal atrial fibrillation (HCC) - ICD9: 427.31, ICD10: I48.0 - management per cardio 6. Obstructive sleep apnea syndrome - ICD9: 327.23, ICD10: G47.33 - seeing pulm 7. Obesity, Class II, BMI 35-39.9 - ICD9: 278.00, ICD10: E66.9 Stable - Behavioral intervention 8. Low serum vitamin B12 - ICD9: 266.2, ICD10: E53.8 - cont replacement 9. Hyperuricemia - ICD9: 790.6, ICD10: E79.0 - cont allopurinol. 10. Gilbert syndrome - ICD9: 277.4, ICD10: E80.4 - stable 11. Multiple lung nodules on CT - ICD9: 793.19, ICD10: R91.8 - seeing Pulm 12. Limping with cause localized to lower leg - ICD9: 781.2, ICD10: R26.89 - CONSULT TO ORTHOPAEDICS: Dr. Moore 13. Situational depression - ICD9: 309.0, ICD10: F43.21 - will restart Prozac at 20 mg a day. Requested Prescriptions Signed Prescriptions Disp Refills FLUoxetine (PROZAC) 20 mg capsule 90 capsule 1 Sig: Take 1 capsule by mouth once daily. F/u 6 months extensive check CMP, Lipid, UA, TSH, CBC, B12 and uric Acid prior Cholo Soriano MD documented in this encounterAv[facility]11-18-2022 Miscellaneous Notes* Letter - Mammography Coordinator - 10/10/2022 11:29 AM EST October 12, 2022 PID: [id number] Katelynn Campuzano [address] [place] [address] Dear Ms. Campuzano, We are pleased to inform you that the results of your recent breast imaging exam on 10/10/2022 are normal. Your mammogram demonstrates that you have dense breast tissue, which could hide abnormalities. Dense breast tissue, in and of itself, is a relatively common condition. Therefore, this information is not provided to cause undue concern; rather, it is to ra ise your awareness and promote discussion with your health care provider regarding the presence of dense breast tissue in addition to other risk factors. Early detection of cancer is very important. We also understand recommendations regarding breast cancer screening are controversial. Please discuss with your primary care provider which strategy is best for you and whether a mammogram is right for you. Your imaging studies and report will be kept on file at [facility] as part of your permanent medical record and are available for your continuing care. Thank you for allowing us to help in meeting your health care needs. Sincerely, Dr. Zhang Interpreting Radiologist [facility] (Normal over 40) documented in this encounterAvita Health System11-18-2022 History of Present illness Narrative* Evelyn Beal, RT(R) - 10/10/2022 9:30 AM EST Radiology Service Progress Note PATIENT NAME: Katelynn Campuzano DATE OF SERVICE: October 10, 2022 TIME: 9:27 AM PATIENT IDENTITY VERIFICATION COMPLETED USING TWO (2) IDENTIFIERS: Name and Date of confirmedby patient verbally. FALL SCREENING: Has the patient had 2 falls in the last year or 1 fall with injury or currently using an Ambulatory Assistive Device (Walker, Cane, Wheelchair, Crutches, etc.)? No PATIENT GENDER DATA: Female. status: : No status: NO. PATIENT RELEVANT IMPLANT DATA REVIEWED: Not Applicable RADIOLOGY DEPARTMENT: Mammography PERIPHERAL IV DATA: Not applicable SIGNED BY: RT Breanna(R) October 10, 2022 9:27 AM documented in this encounterAvita [facility] System10-27-2022 History of Present illness Narrative* Bia Bruno APRN.ASSOCIATE TECHNICIAN - 09/18/2022 11:57 AM EDT CC: Patient presents with: Sore Throat: Cough, chills x 1 day HPI: Katelynn Campuzano is a 72 year old female who presents to the office with complaint of cough, nonproductive, sore throat, and chills for the past day. Symptoms are staying the same. Associated symptoms includes cough. Denies headache, body aches, fever, nausea, vomiting , and diarrhea. Treatments tried include nothing so far. with no relief of symptoms. Sick contacts: unknown. History of asthma, frequent episodes of bronchitis, chronic bronchitis, bronchiectasis or COPD: No Smoker: No Seasonal/environmental allergies: No The ROS is otherwise negative. The patient's pmh, medications, allergies, and past visits are reviewed. PHYSICAL EXAM: BP 150/82 Pulse 82 Temp (!) 38.1 C (100.5 F) Resp 21 Wt 117.9 kg (260 lb) SpO2 99% BMI 40.72 kg/m General appearance: alert, cooperative, pleasant, in no acute distress Head: Normocephalic Eyes: EOM's intact, conjunctiva pink and moist, no icterus, sclera white, non-injected Ears: Right ear: External ear/canal- Normal, TM - clear with good landmarks. Left ear: External ear/canal- Normal, TM - clear with good landmarks Oropharynx:moist without lesions, No erythema, exudates or tonsillar hypertrophy. Heart: Negative. RRR without obvious murmur, gallop, or rubs. No ectopy. Lungs: clear to auscultation, without rales or wheeze, good air exchange PAST MEDICAL HISTORY Diagnosis Date Acquired hypothyroidism 07/16/2016 Continue home Levothyroxine dose. 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 06/23/17 Hyperuricemia 06/06/[address] 04/11/2022 DPA: Sherman () Low serum vitamin B12 04/08/2021 Lumbar compression fracture (HCC) 04/15/2017 Lumbar degenerative disc disease 04/15/2017 Medicare annual wellness visit, subsequent 04/03/2021 Last Done: 04/03/2021 Mixed hyperglyceridemia 12/15/2016 Morbid obesity due to excess calories (HCC) 07/03/[address] nodules [address] CT 08/24/2018 Obesity, Class II, BMI 35-39.9 07/03/2016 Obstructive sleep apnea syndrome 06/24/2017 On CPAP at home. 7 cm pressure Oropharyngeal bleeding 06/24/2017 Happened intraop. Unclear etiology. Initial ENT evaluation reportedly did not reveal any clear source of bleeding. Patient received protamine for heparin reversal intraop and was successfully extubated. Plan: No further AC while in the CICU. F/u ENT recommendations.. Continue Dexamethasone to preevent airway edema. Monitored in the ICU and transferred to the [facility]. - discussed with the ENT team, r Osteopenia Paroxysmal atrial fibrillation (HCC) Personal history of colonic polyps Colon polyps S/P ablation of atrial fibrillation 06/24/2017 Date of procedure 06/23/17. Indication: persistent atrial fibrillation. 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 Unspecified hemorrhoids without mention of complication Hemorrhoids Vitamin D deficiency 08/17/2013 PAST SURGICAL HISTORY Procedure Laterality Date ARTHROSCOPY KNEE DIAGNOSTIC W/WO SYNOVIAL BX SPX Arthroscopy, knee right ARTHRP ACETBLR/PROX FEM PROSTC AGRFT/ALGRFT 04/08/2010 right hip ARTHRP KNE CONDYLE&PLATU MEDIAL&LAT COMPARTMENTS 04/14/2007 Knee replacement, total/rt ARTHRP KNE CONDYLE&PLATU MEDIAL&LAT COMPARTMENTS 1997 Knee replacement, total lt COLONOSCOPY 03/29/2001 Repeat in COLONOSCOPY FLX DX W/COLLJ SPEC WHEN PFRMD 09/28/2014 Colonoscopy COLONOSCOPY FLX DX W/COLLJ SPEC WHEN PFRMD 04/11/2019 Colonoscopy, repeat 5 years EGD 11/06/2003 for c/o chest pain EGD TRANSORAL BIOPSY SINGLE/MULTIPLE 05/20/2011 HEART SURGERY HX LEFT HEART CATH,PERCUTANEOUS LIG/TRNSXJ FLP TUBE ABDL/VAG APPR UNI/BI PAST SURGICAL HISTORY OF cataracts bilateral PAST SURGICAL HISTORY OF 06/23/2017 heart ablation PAST SURGICAL HISTORY OF 08/17/2018 heart ablation VAGINAL HYSTERECTOMY UTERUS 250 GM/< 1992 Hysterectomy, vaginal [fibroids and bleeding[[ ALLERGIES Sulfa (Sulfonamide Antibiotics), Lodine [Etodolac], and Penicillins MEDICATIONS hydroCHLOROthiazide (HYDRODIURIL, ESIDRIX) 25 mg tablet Take 1 tablet by mouth once daily. levothyroxine (SYNTHROID) 25 mcg tablet Take 1 tablet by mouth daily before breakfast. allopurinol (ZYLOPRIM) 300 mg tablet Take 1 tablet by mouth twice daily. cyanocobalamin (VITAMIN B-12) 1,000 mcg tab Take 1 tablet by mouth once daily. Cholecalciferol, Vitamin D3, (VITAMIN D-3) 50 mcg (2,000 unit) cap Take 1 capsule by mouth once daily. XARELTO 20 mg tablet TAKE 1 TABLET BY MOUTH EVERY DAY WITH DINNER lisinopril (ZESTRIL, PRINIVIL) 5 mg tablet Take 5 mg by mouth once daily. flecainide (TAMBOCOR) 150 mg tablet Take 0.5 tablets by mouth twice daily. acetaminophen (TYLENOL) 500 mg tablet Take 1,000 mg by mouth at bedtime as needed. metoprolol tartrate, short acting, (LOPRESSOR) 12.5 mg tab Take 12.5 mg by mouth every 12 hours. FAMILY HISTORY Problem Relation Age of Onset Diabetes Mother Thyroid Mother other (Other) Mother colon polyps - not CA Heart Father other (Other) Brother colon polyps- not CA Cancer Daughter 4 neuroblastoma Social History Tobacco Use Smoking status: Never Smokeless tobacco: Never Substance Use Topics Alcohol use: Never Drug use: No ASSESSMENT/PLAN: 1. At increased risk of exposure to COVID-19 virus - ICD9: V15.89, ICD10: Z91.89 (primary diagnosis) - COVID WITH FLUA+B, ROUTINE 2. Acute cough - ICD9: 786.2, ICD10: R05.1 - COVID WITH FLUA+B, ROUTINE Prescription instructions reviewed with patient as applicable. Potential red flag symptoms discussed with the patient. Reviewed appropriate action plan to take if red flag symptoms occur. Patient agreeable to treatment plan. Bia Bruno APRN.MIGUEL documented in this encounterAvita Health System10-27-2022 Miscellaneous Notes* Telephone Encounter - Hilda Snyder PA-C - 09/18/2022 11:25 AM EDT noted * Telephone Encounter - Irish Alexander LPN - 09/18/2022 10:59 AM EDT Patient calling she took home COVID test last evening but it was , said it was negative. Today she is coughing more and has fever. Patient was wanting to have PCR test done. Advised to go to [facility] for evaluation with a provider. Patient plans to do that. documented in this encounterAvita Health System10-07-2022 History of Past illness Narrative* Problem Noted Date Resolved Date IRB 18-228: [facility] Using [employer] Platform for Chronic Care of Patients with AF after Ablation Procedure- Randomized Study 12/02/2018 05/13/2019 Sciatica of right side 08/11/2017 8 A-fib 06/24/2017 07/06/2017 Lumbar compression fracture 04/15/201703/24 Paronychia of finger 05/14/2016 12/17/2016 Atrial fibrillation, persistent 09/04/2015 12/27/2018 Overview: S/p DCCV Oct 2016 and PV! Jun 23 2017. [id number] risk score: 3. On Flecainide and chronic AC with Rivaroxaban. Plan: Monitor in the CICU Will hold AC for now due to concern for oropharynx bleeding after PVI. Daily ECgs Continue Flecainide F/u EP recs. Situational depression 06/07/2014 Vitamin D deficiency 08/17/2013 01/07/2018 Secondary hyperparathyroidism, non-renal 005 01/07/2018 Abdominal pain, left upper quadrant 07/17/2016 Hyperparathyroidism, unspecified 12/22/2006 documented as of this encounter (statuses as of 08/29/2022) [facility] History of Present illness Narrative* Bia Bruno APRN.ASSOCIATE TECHNICIAN - 08/29/2022 3:30 PM EDT Images from the original note were not included. Subjective Patient came in with complaints of a bruise behind her left thigh. Patient says she was doing some exercises on a picnic table yesterday and thinks she could have pinched it but wanted to double check. Patient says she does notice a lump inside the bruise. Patient denies any numbness tingling warmth or swelling. Patient denies any other symptoms at this time. Patient did have her outlinedthe bruise and it is not getting any bigger since yesterday. The history is provided by the patient. No historical interpreter was used. Review of Systems Constitutional: Negative. Skin: Negative. Objective Physical Exam Constitutional: Appearance: Normal appearance. Pulmonary: Effort: Pulmonary effort is normal. Skin: Comments: Patient has ecchymosis noted in area marked above. Small marble sized firm sized area. Consistent with a trauma. No erythema or warmth noted. Neurological: Mental Status: She is alert. PAST MEDICAL HISTORY Diagnosis Date Acquired hypothyroidism 07/16/2016 Continue home Levothyroxine dose. 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 06/23/17 Hyperuricemia 06/06/[address] 04/11/2022 DPA: Sherman () Low serum vitamin B12 04/08/2021 Lumbar compression fracture (HCC) 04/15/2017 Lumbar degenerative disc disease 04/15/2017 Medicare annual wellness visit, subsequent 04/03/2021 Last Done: 04/03/2021 Mixed hyperglyceridemia 12/15/2016 Morbid obesity due to excess calories (HCC) 07/03/[address] nodules on CT 08/24/2018 Obesity, Class II, BMI 35-39.9 07/03/2016 Obstructive sleep apnea syndrome 06/24/2017 On CPAP at home. 7 cm pressure Oropharyngeal bleeding 06/24/2017 Happened intraop. Unclear etiology. Initial ENT evaluation reportedly did not reveal any clear source of bleeding. Patient received protamine for heparin reversal intraop and was successfully extubated. Plan: No further AC while in the CICU. F/u ENT recommendations.. Continue Dexamethasone to preevent airway edema. Monitored in the ICU and transferred to the [facility]. - discussed with the ENT team, r Osteopenia Paroxysmal atrial fibrillation (HCC) Personal history of colonic polyps Colon polyps S/P ablation of atrial fibrillation 06/24/2017 Date of procedure 06/23/17. Indication: persistent atrial fibrillation. 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 Unspecified hemorrhoids without mention of complication Hemorrhoids Vitamin D deficiency 08/17/2013 PAST SURGICAL HISTORY Procedure Laterality Date ARTHROSCOPY KNEE DIAGNOSTIC W/WO SYNOVIAL BX SPX Arthroscopy, knee right ARTHRP ACETBLR/PROX FEM PROSTC AGRFT/ALGRFT 04/08/2010 right hip ARTHRP KNE CONDYLE&PLATU MEDIAL&LAT COMPARTMENTS 04/14/2007 Knee replacement, total/rt ARTHRP KNE CONDYLE&PLATU MEDIAL&LAT COMPARTMENTS 1997 Knee replacement, total lt COLONOSCOPY 03/29/2001 Repeat in COLONOSCOPY FLX DX W/COLLJ SPEC WHEN PFRMD 09/28/2014 Colonoscopy COLONOSCOPY FLX DX W/COLLJ SPEC WHEN PFRMD 04/11/2019 Colonoscopy, repeat 5 years EGD 11/06/2003 for c/o chest pain EGD TRANSORAL BIOPSY SINGLE/MULTIPLE 05/20/2011 HEART SURGERY HX LEFT HEART CATH,PERCUTANEOUS LIG/TRNSXJ FLP TUBE ABDL/VAG APPR UNI/BI PAST SURGICAL HISTORY OF cataracts bilateral PAST SURGICAL HISTORY OF 06/23/2017 heart ablation PAST SURGICAL HISTORY OF 08/17/2018 heart ablation VAGINAL HYSTERECTOMY UTERUS 250 GM/< 1992 Hysterectomy, vaginal [fibroids and bleeding[[ ALLERGIES Sulfa (Sulfonamide Antibiotics), Lodine [Etodolac], and Penicillins MEDICATIONS hydroCHLOROthiazide (HYDRODIURIL, ESIDRIX) 25 mg tablet Take 1 tablet by mouth once daily. levothyroxine (SYNTHROID) 25 mcg tablet Take 1 tablet by mouth daily before breakfast. allopurinol (ZYLOPRIM) 300 mg tablet Take 1 tablet by mouth twice daily. cyanocobalamin (VITAMIN B-12) 1,000 mcg tab Take 1 tablet by mouth once daily. Cholecalciferol, Vitamin D3, (VITAMIN D-3) 50 mcg (2,000 unit) cap Take 1 capsule by mouth once daily. XARELTO 20 mg tablet TAKE 1 TABLET BY MOUTH EVERY DAY WITH DINNER lisinopril (ZESTRIL, PRINIVIL) 5 mg tablet Take 5 mg by mouth once daily. flecainide (TAMBOCOR) 150 mg tablet Take 0.5 tablets by mouth twice daily. acetaminophen (TYLENOL) 500 mg tablet Take 1,000 mg by mouth at bedtime as needed. metoprolol tartrate, short acting, (LOPRESSOR) 12.5 mg tab Take 12.5 mg by mouth every 12 hours. FAMILY HISTORY Problem Relation Age of Onset Diabetes Mother Thyroid Mother other (Other) Mother colon polyps - not CA Heart Father other (Other) Brother colon polyps- not CA Cancer Daughter 4 neuroblastoma Social History Tobacco Use Smoking status: Never Smokeless tobacco: Never Substance Use Topics Alcohol use: Never Drug use: No ASSESSMENT/PLAN: 1. Bruise - ICD9: 924.9, ICD10: T14.8XXA At this time patient was instructed to monitor for couple days. See if it feels like it is getting any better. If any of the symptoms change or worsen patient will go to the ER. Patient is on Xareltopatient is not fearful about a blood clot. Patient was okay with this care plan. Bia Bruno APRN.MIGUEL documented in this encounterAvita Health System09-24-2022 Miscellaneous Notes* Telephone Encounter - Janeen Flores Ma - 08/16/2022 10:21 AM EDT Vaccine updated. Janeen Flores Ma documented in this encounterAvita Health System07-22-2022 Miscellaneous Notes* Telephone Encounter - Zainab Morataya LPN - 06/13/2022 11:59 AM EDT Last refill 10/04/21 Qty: 90 with 1 refill JEOVANY 04/11/22 NOV 10/15/22 Zainab Morataya LPN documented in this encounterAvita Health System06-27-2022 History of Present illness Narrative* Lizbeth Driver LPN - 05/19/2022 9:[address] Briscoe, Katelynn was provided with gel powerstep inserts, size 9, and instructed/educated in its application, wear, and care. All questions were answered, and patient was able to demonstrate competence with the necessary skills to utilize the above equipment. Lizbeth Driver LPN * Fabio Briscoe - 05/19/2022 9:27 AM EDT Images from the original note were not included. Consultation requested by Dr. Soriano for an opinion regarding numbness/pain in b/l feet. My final recommendations will be communicated back to the requesting physician by way of shared Medical recordor letter to requesting physician via US mail. Initial Podiatric Office Visit: Chief Complaint: This 72 year old female who presents with chief complaint:pain and numbness in both feet HPI Patient presents to clinic for evaluation of b/l feet. Patient complains of pain and numbness in the balls of both feet. Patient states the numbness has been present for a couple of years. She deniesany major pain but has more numbness. She states that she should be wearing her shoes for this issue but she chooses not to because she is afraid of falling. Patient does take ibuprofen for the numbness but does not know if it helps because she has other ailments causing greater amounts of pain. PAIN EVALUATION 05/19/2022 0909 Pain Level: 3 Pain Location: Other: See Comment bilateral feet Description: Numbness Duration Amount of Time: 2 Duration Units: Years Frequency: Continuous Hemoglobin A1C (%) Date Value 12/22/2018 5.3 PCP: Cholo Soriano MD PAST MEDICAL HISTORY Diagnosis Date Acquired hypothyroidism 07/16/2016 Continue home Levothyroxine dose. 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 06/23/17 Hyperuricemia 06/06/[address] 04/11/2022 DPA: Sherman () Low serum vitamin B12 04/08/2021 Lumbar compression fracture (HCC) 04/15/2017 Lumbar degenerative disc disease 04/15/2017 Medicare annual wellness visit, subsequent 04/03/2021 Last Done: 04/03/2021 Mixed hyperglyceridemia 12/15/2016 Morbid obesity due to excess calories (HCC) 07/03/[address] 08/24/2018 Obesity, Class II, BMI 35-39.9 07/03/2016 Obstructive sleep apnea syndrome 06/24/2017 On CPAP at home. 7 cm pressure Oropharyngeal bleeding 06/24/2017 Happened intraop. Unclear etiology. Initial ENT evaluation reportedly did not reveal any clear source of bleeding. Patient received protamine for heparin reversal intraop and was successfully extubated. Plan: No further AC while in the CICU. F/u ENT recommendations.. Continue Dexamethasone to preevent airway edema. Monitored in the ICU and transferred to the [facility]. - discussed with the ENT team, r Osteopenia Paroxysmal atrial fibrillation (HCC) Personal history of colonic polyps Colon polyps S/P ablation of atrial fibrillation 06/24/2017 Date of procedure 06/23/17. Indication: persistent atrial fibrillation. 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 Unspecified hemorrhoids without mention of complication Hemorrhoids Vitamin D deficiency 08/17/2013 Current Outpatient Medications Medication Sig levothyroxine (SYNTHROID) 25 mcg tablet Take 1 tablet by mouth daily before breakfast. allopurinol (ZYLOPRIM) 300 mg tablet Take 1 tablet by mouth twice daily. hydroCHLOROthiazide (HYDRODIURIL, ESIDRIX) 25 mg tablet Take 1 tablet by mouth once daily. cyanocobalamin (VITAMIN B-12) 1,000 mcg tab Take 1 tablet by mouth once daily. Cholecalciferol, Vitamin D3, (VITAMIN D-3) 50 mcg (2,000 unit) cap Take 1 capsule by mouth once daily. XARELTO 20 mg tablet TAKE 1 TABLET BY MOUTH EVERY DAY WITH DINNER lisinopril (ZESTRIL, PRINIVIL) 5 mg tablet Take 5 mg by mouth once daily. flecainide (TAMBOCOR) 150 mg tablet Take 0.5 tablets by mouth twice daily. acetaminophen (TYLENOL) 500 mg tablet Take 1,000 mg by mouth at bedtime as needed. metoprolol tartrate, short acting, (LOPRESSOR) 12.5 mg tab Take 12.5 mg by mouth every 12 hours. No current facility-administered medications for this visit. ALLERGIES Allergen Reactions Sulfa (Sulfonamide * Hives Lodine [Etodolac] Unknown Penicillins Unknown PAST SURGICAL HISTORY Procedure Laterality Date ARTHROSCOPY KNEE DIAGNOSTIC W/WO SYNOVIAL BX SPX Arthroscopy, knee right ARTHRP ACETBLR/PROX FEM PROSTC AGRFT/ALGRFT 04/08/2010 right hip ARTHRP KNE CONDYLE&PLATU MEDIAL&LAT COMPARTMENTS 04/14/2007 Knee replacement, total/rt ARTHRP KNE CONDYLE&PLATU MEDIAL&LAT COMPARTMENTS 1997 Knee replacement, total lt COLONOSCOPY 03/29/2001 Repeat in COLONOSCOPY FLX DX W/COLLJ SPEC WHEN PFRMD 09/28/2014 Colonoscopy COLONOSCOPY FLX DX W/COLLJ SPEC WHEN PFRMD 04/11/2019 Colonoscopy, repeat 5 years EGD 11/06/2003 for c/o chest pain EGD TRANSORAL BIOPSY SINGLE/MULTIPLE 05/20/2011 HEART SURGERY HX LEFT HEART CATH,PERCUTANEOUS LIG/TRNSXJ FLP TUBE ABDL/VAG APPR UNI/BI PAST SURGICAL HISTORY OF cataracts bilateral PAST SURGICAL HISTORY OF 06/23/2017 heart ablation PAST SURGICAL HISTORY OF 08/17/2018 heart ablation VAGINAL HYSTERECTOMY UTERUS 250 GM/< 1992 Hysterectomy, vaginal [fibroids and bleeding[[ FAMILY HISTORY Problem Relation Age of Onset Diabetes Mother Thyroid Mother other (Other) Mother colon polyps - not CA Heart Father other (Other) Brother colon polyps- not CA Cancer Daughter 4 neuroblastoma Social History Tobacco Use Smoking status: Never Smoker Smokeless tobacco: Never Used Substance Use Topics Alcohol use: Never Drug use: No REVIEW OF SYSTEMS GENERAL: Negative for Malaise, significant weight loss, fever RESPIRATORY: Negative for cough, wheezing and shortness of breath CARDIOVASCULAR: Negative for chest pain, leg swelling and palpitations GI: Negative for abdominal discomfort, blood in stools or black stools and change in bowel habits : Negative for dysuria, frequency and incontinence MUSCULOSKELETAL: Negative for joint pain or swelling, back pain, and muscle pain. SKIN: Negative for lesions, rash, and itching. HEMATOLOGY/LYMPHOLOGY Negative for prolonged bleeding, bruising easily, and swollen nodes. ENDOCRINE: Negative for cold or heat intolerance, polyuria, polydipsia and goiter. NEURO: negative Physical Exam: Constitutional: Pt is a well developed 72 year old female who is alert, oriented and cooperative Eyes: Following during examination. No redness or drainage. Respiratory: RR normal and nonlabored. Even breathing. No evidence of distress or shortness of breath. Psychology: Patient is engaged during conversation. Normal affect and mood. Does not appear depressed or anxious during encounter. Vascular: Dorsalis pedis pulses faintly palpable b/l. Posterior tibial pulses palpable b/l. Capillary Fill time < 5 seconds to digits 1-5 b/l Skin temperature warm to warm proximal to distal b/l Hair growth present to digits Neurological: intact light touch/epicritic sensation Vibratory sensation absent b/l decreased protective sensation + significant neurological deficits Dermatological: Nails 1-5 b/l appear normal. Webspaces clean and dry 1-4 b/l. Skin appears well hydrated and supple. good color, texture, turgor. No open lesions present. No callosities present. Musculoskeletal/Orthopaedic: Patient has no pain to palpation of b/l feet Foot type is neutral structurally AJ ROM is decreased with knee extended and flexed 1st MPJ is decreased when loaded and no pain or crepitus are noted with ROM. MTJ, STJ are full and free of pain and crepitus. +5/5 muscle strength dorsiflexion, plantarflexion, inversion, eversion b/l Radiographs: 3 views b/l foot ordered May 19, 2022: I have personally reviewed and interpreted these XR myself: Posterior heel spur r>L ASSESSMENT: (G62.9) Neuropathy (primary encounter diagnosis) (M79.671, M79.672) Foot pain, bilateral PLAN: 1. History and physical examination performed. 2. XR reviewed with patient and interpreted today 3. Discussed pain in foot. Suspect component of early neuropathy. Discussed using neurontin. She declined this today. 4. Recommend use of cane when ambulatory for balance 5. Will dispense powerstep gel insert 6. Offered emg vs pvr. Patient has elected to hold on this. 7. F/u prn Fabio Briscoe DPM Podiatry [address] [facility] [address] Dept: [phone] Dept * Darby Ramos RN - 05/19/2022 9:08 AM EDT Patient presents with: Left Foot - New, Numbness Right Foot - New, Numbness AMB ROOMING INTAKE FLOWSHEET DATA Risk Screening Do you have concerns about personal safety or safety in the home?: No Pain Pain Level: 3 Pain Location: Other: See Comment (bilateral feet) Description: Numbness Duration Amount of Time: 2 Duration Units: Years Frequency: Continuous documented in this encounterAvita Health System06-27-2022 Instructions* Patient Instructions* Fabio Briscoe - 05/19/2022 9:35 AM EDT Powerstep Original Full length. Can purchase at [employer] here in [place], [employer] in [place] or [place]. Also can find in [place] in [facility]. Powersteps can also be purchased online, starting around $25.00 If you have a metatarsal or dancer pad for your feet apply the pad directly to the insole so you can interchange between your shoes. Find a shoe with a removable insole and take this out and replace with your powerstep insole. Always bring powersteps with you when shopping for shoes so that you can make sure that everything fits well together documented in this encounterAvita Health System06-27-2022 History of Present illness Narrative* RT Declan(R) - 05/19/2022 8:40 AM EDT Radiology Service Progress Note PATIENT NAME: Katelynn Campuzano DATE OF SERVICE: May 19, 2022 TIME: 8:56 AM PATIENT IDENTITY VERIFICATION COMPLETED USING TWO (2) IDENTIFIERS: Name and Date of confirmedby patient verbally. FALL SCREENING: Has the patient had 2 falls in the last year or 1 fall with injury or currently using an Ambulatory Assistive Device (Walker, Cane, Wheelchair, Crutches, etc.)? No PATIENT GENDER DATA: Female. status: : No status: NO. PATIENT RELEVANT IMPLANT DATA REVIEWED: Yes RADIOLOGY DEPARTMENT: General X-ray: Exam(s) Completed: Lower Extremity X- Ray(s): Foot, Bilateral and Wt. Bearing PERIPHERAL IV DATA: Not applicable SIGNED BY: RT Declan(R) May 19, 2022 8:56 AM documented in this encounterAvita Health System06-15-2022 History of Present illness Narrative* Natalia Wood MD - 05/07/2022 9:30 AM EDT Images from the original note were not included. [facility]PART[facility] ESTABLISHED PATIENT OFFICE VISIT 05/07/2022 HISTORY OF PRESENT ILLNESS: Katelynn Campuzano is a 72 year old female who presents today for follow-up regarding Lung nodules. Past medical history is also significant for hypothyroidism, hypertension, GERD, Paroxysmal atrial fibrillation, . Never smoker. Most recent pulmonary office visit was on 11/04/[address] Natalia Wood. Recommendations from that office visit were as follows: CT scan chest in 6 months, Continue using CPAP machine Today, the patient reports she is doing well since last office visit. She reports no pulmonary symptoms. Denies fever, night sweats, hemoptysis, cough, wheeze or chest pain. No ED visits or hospitalizations ROS: REVIEW OF SYSTEMS: Constitutional: Denies malaise, fever/chills, night sweats, weight loss. HEENT: Denies headache, rhinorrhea, sore throat RESPIRATORY: See HPI, Denies shortness of breath, cough, wheezing CARDIOVASCULAR: Denies chest pain, palpitations The remainder of the ROS were reviewed and negative. Current Outpatient Medications Medication Sig Dispense Refill levothyroxine (SYNTHROID) 25 mcg tablet Take 1 tablet by mouth daily before breakfast. 90 tablet 3 allopurinol (ZYLOPRIM) 300 mg tablet Take 1 tablet by mouth twice daily. 180 tablet 3 hydroCHLOROthiazide (HYDRODIURIL, ESIDRIX) 25 mg tablet Take 1 tablet by mouth once daily. 90 tablet 1 cyanocobalamin (VITAMIN B-12) 1,000 mcg tab Take 1 tablet by mouth once daily. Cholecalciferol, Vitamin D3, (VITAMIN D-3) 50 mcg (2,000 unit) cap Take 1 capsule by mouth once daily. 90 capsule 3 XARELTO 20 mg tablet TAKE 1 TABLET BY MOUTH EVERY DAY WITH DINNER 90 tablet 1 lisinopril (ZESTRIL, PRINIVIL) 5 mg tablet Take 5 mg by mouth once daily. flecainide (TAMBOCOR) 150 mg tablet Take 0.5 tablets by mouth twice daily. 90 tablet 3 acetaminophen (TYLENOL) 500 mg tablet Take 1,000 mg by mouth at bedtime as needed. metoprolol tartrate, short acting, (LOPRESSOR) 12.5 mg tab Take 12.5 mg by mouth every 12 hours. No current facility-administered medications for this visit. I have reviewed and updated the medication list in the EMR. ALLERGIES Allergen Reactions Sulfa (Sulfonamide * Hives Lodine [Etodolac] Unknown Penicillins Unknown IMMUNIZATIONS: Immunization History Administered Date(s) Administered COVID-19 vaccine, age 12+ yr ([employer] - STOKES TOP) 02/19/2022 COVID-19 vaccine, age 12+ yr ([employer] - PURPLE TOP) 12/26/2020 01/16/2021 08/19/2021 H1N1 Influenza 09/20/2012 Hepatitis B Adult 07/28/2012 07/28/2012 09/01/2012 09/01/2012 01/26/2013 01/26/2013 Influenza 09/15/2014 09/08/2016 Influenza Seasonal - High Dose - Age 65+ 09/04/2015 09/02/2017 08/24/2018 09/07/2019 08/23/2020 Influenza Seasonal Inj Quad Age 6 Mo-64 Yrs Pres Free 08/01/2013 Influenza Seasonal Trivalent Inj Pres Free 08/23/2018 Influenza Vaccine, Split-Non Spec 10/16/2006 09/24/2010 08/01/2013 Influenza Vaccine, Whole 09/20/2012 09/04/2015 Pneumococcal-13 Vac Conjugate 09/10/2020 Pneumovax 06/28/2014 TD Adult 01/12/2016 Td, unspecified formulation 01/12/2016 Tdap (Age 7+) 03/15/2009 Zostavax 05/20/2012 Zoster Recombinant (Shingrix) 05/29/2021 09/04/2021 influenza, high-dose, quadrivalent vaccine (FLUZONE HIGH DOSE QUADRIVALENT) 08/07/2021 PHYSICAL EXAMINATION: VITAL SIGNS:BP 114/70 (BP Site: Left Arm, BP Position: Sitting, BP Cuff Size: Large Adult) Pulse (!) 54 Ht 170.2 cm (5' 7 ) Wt 117.9 kg (260 lb) SpO2 97% BMI 40.72 kg/m GENERAL: Well appearing in no apparent distress HEENT: Sclera anicteric. N visible nasal discharge. Lips, tongue, and buccal mucosa no cyanosis or erythema. CV: regular rate and rhythm. no LE edema. PULM: Unlabored breathing, no use of accessory muscles, lung sounds are clear bilaterally. MSK: Extremities Warm and well perfused. no cyanosis. NEURO: A&O x 3. Answers questions appropriately. PSYCH: Mood and affect appropriate for situation. DATA REVIEW: I have personally reviewed the following: Spirometry / DLCO /Lung volumes - 10/31/2021: IMPRESSION: Spirometry is normal. The TLC, RV and RV/TLC are normal. The diffusing capacity is normal. CT Chest - 05/05/2022: IMPRESSION: No CT evidence of acute abnormality. Stable nodules measuring up to 0.6 cm within the right upper lobe. Lung parenchyma and airways: No consolidation. Stable nodules, for example 6 mm nodule, right upper lobe, 639; 4 mm nodule right middle lobe, 6:98, 4 mm nodule right middle lobe, 6:101; 5 mm nodule in the lingula, 6:105, 2 mm left lower lobe nodule, 6:106, left lower lobe nodule, 3 mm, 6:116. No acute parenchymal or pleural process is seen. The central airways are patent. Pleural space: No pleural effusion. No pleural thickening. Lower neck, lymph nodes, and mediastinum: The imaged thyroid gland is normal. No lymphadenopathy in the supraclavicular, axillary, mediastinal, or hilar regions. CT Chest - 10/31/2021: IMPRESSION: 1. There is a new 3 mm nodule in the anterior right lower lobe. Other pulmonary nodules appear unchanged. 2. No thoracic lymphadenopathy Lung parenchyma and airways: There is a new 3 mm nodule in the anterior right lower lobe (6:82). Other pulmonary nodules appear unchanged. For example: *6 mm nodule posterior right upper lobe (6:39) *4 mm nodule right middle lobe (6:107) *3 mm nodule lateral right lower lobe (6:106) *5 mm nodule lingula (6:111) *4 mm nodule posterior left lower lobe (6:115) No consolidation. Central airways are patent. Pleural space: No pleural effusion. No pleural thickening. Lower neck, lymph nodes, and mediastinum: The imaged thyroid gland is normal. No lymphadenopathy in the supraclavicular, axillary, mediastinal, or hilar regions. Dictated by : MADONNA ABREU MD This examination was interpreted and the report reviewed and electronically signed by: MADONNA ABREU MD on Oct 31 2021 10:51AM EST CT Chest - 04/10/2021: IMPRESSION: Solid nodules in the bilateral lungs measuring up to 7 mm. Lung parenchyma and airways: The central airways are patent. Multiple solid nodules identified in the bilateral lungs. For example, nodules in the right lung measuring up to 6-7 mm, series 6 images 40, 62, 74, 92, 99, 102, 111, 118, and 128. Nodules in the left lung measuring up to 5 mm, series 6 images 28, 39, 49, 86, 89, 101, 110, 115, 118, 1:0, 137, and 153. No mass lesion identified. Pleural space: No pleural effusion. No pleural thickening. Lower neck, lymph nodes, and mediastinum: The imaged thyroid gland is normal. No supraclavicular adenopathy. An enlarged right axillary lymph node showing fatty bing, likely representing benign process. No mediastinal lymphadenopathy on this noncontrast exam. Dictated by : SAMUEL MALDONADO MD This examination was interpreted and the report reviewed and electronically signed by: SAMUEL MALDONADO MD on Apr 10 2021 9:47AM EST CT Pulm Vein - 12/02/2018: IMPRESSION: 1. Normal variant pulmonary venous anatomy without pulmonary vein stenosis. 2. Moderate biatrial enlargement. No left atrial or left atrial appendage thrombus. 3. Stable (<6 mm) pulmonary nodules, likely benign. RESULT: Potential study limitations: None. The chest wall is unremarkable. Few subcentimeter mediastinal and hilar lymph nodes are unchanged and are likely reactive. The central pulmonary arteries are mildly prominent, which could be seen with pulmonary hypertension (the main pulmonary artery measures 30 mm). No pericardial effusion is noted. Lung windows reveal patchy atelectasis in the right middle lobe, lingula and both lower lobes. Few small (<6 mm) pulmonary nodules are unchanged. For example, a small 3 mm right middle lobe nodule is unchanged, image 30. Another small 3 mm left lower lobe nodule is stable, image 27. There is mild mosaic attenuation of the lung parenchyma. The central airways are patent. No pleural effusion is noted. The cardiac chambers are remarkable for moderate biatrial enlargement. VASCULAR WITH ADVANCED 3-D OFF-LINE POSTPROCESSING: The left atrium and atrial appendage show no evidence of thrombus. The left atrium receives 5 widely patent pulmonary veins without stenosis or other abnormality. The right middle vein is a branch of the right superior pulmonary vein. A pulmonary vein draining the superior segment of the right lower lobe enters the left atrium directly. The coronary sinus drains into the right atrium normally and is widely patent. The aortic valve is trileaflet with minimal calcifications of the noncoronary cusp. The visualized portions of the ascending and descending thoracic aorta are of normal size. The aortic arch is not included in this study. There is no acute aortic pathology. The coronary arteries have normal origins and courses. There are minimal distinct coronary calcifications identified, though this study was not optimized for coronary artery evaluation. Transcribe Date/Time: Dec 02 2018 1:53P Dictated by : RAFIQ ZHANG MD ECHO - 12/02/2018: CONCLUSIONS: - Exam indication: S/P ABLATION - The left ventricle is normal in size. Left ventricular systolic function is normal. EF = 70 5% (2D 4-ch.) Grade II left ventricular diastolic dysfunction. - The right ventricle is normal in size. Right ventricular systolic function is normal. - The left atrial cavity is mildly dilated. - The right atrial cavity is dilated. - Estimated right ventricular systolic pressure is likely underestimated due to a weak or incomplete tricuspid regurgitation signal and is, at least, 35 mmHg consistent with mild pulmonary hypertension. Estimated right atrial pressure is 8 mmHg based on IVC assessment. - Exam was compared with the prior CC echocardiographic exam performed on 10-09-2017. No change. RSVP 35 mmHg consistent with mild pulmonary hypertension Sleep study - 08/12/2017: ASSESSMENT & PLAN: ASSESSMENT/PLAN: 1. Multiple lung nodules on CT - ICD9: 793.19, ICD10: R91.8 (primary diagnosis) Bilateral pulmonary nodules seen on dedicated CT scan chest March 2021 largest is right upper lobe nodule 6 to 7 mm Other smaller pulmonary nodules are scattered in the right and left lung Other lung nodules has been stable Some of the nodules has been seen since 2017 New 3 mm right lower lobe nodule on 10/2021 scan *6 mm nodule posterior right upper lobe (6:39) seen on ct chest 03/2021 *4 mm nodule right middle lobe (6:107) *3 mm nodule lateral right lower lobe (6:106) *5 mm nodule lingula (6:111) *4 mm nodule posterior left lower lobe (6:115) CT chest 05/05/2022 shows that nodules appear to stable Repeat CT chest scheduled for 04/2023, per Fleischner criteria 2. 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 Obesity, Class II, BMI 35-39.9 - ICD9: 278.00, ICD10: E66.9 Weight increasing - Behavioral intervention - Increase exercise and improve diet 4. pulmonary hypertension RSVP 35 mmHg on ECHO from 2019. Likely due to sleep apnea Repeat echo next visit I have discussed the above recommendations in detail with the patient. Patient verbalizes understanding and is in agreement with plan as stated above. Alta Gauthier APRN-ASSOCIATE TECHNICIAN documented in this encounter[facility]-13-[facility]22 History of Present illness Narrative* RT Tania(R) - 05/05/2022 8:00 AM EDT Radiology Service Progress Note PATIENT NAME: Katelynn Campuzano DATE OF SERVICE: May 05, 2022 TIME: 10:27 AM PATIENT IDENTITY VERIFICATION COMPLETED USING TWO (2) IDENTIFIERS: Name and Date of confirmedby patient verbally. FALL SCREENING: Has the patient had 2 falls in the last year or 1 fall with injury or currently using an Ambulatory Assistive Device (Walker, Cane, Wheelchair, Crutches, etc.)? No PATIENT GENDER DATA: Female. status: : No status: NO. PATIENT RELEVANT IMPLANT DATA REVIEWED: Not Applicable RADIOLOGY DEPARTMENT: CT; Exam(s) Completed: Chest PERIPHERAL IV DATA: Not applicable SIGNED BY: RT Sona(R) May 05, 2022 10:27 AM documented in this encounterAvita [facility] System06-07-2022 Miscellaneous Notes* Telephone Encounter - Zainab Morataya LPN - 04/29/2022 2:41 PM EDT Pt notified of same. Zainab Morataya LPN * Telephone Encounter - Hilda Snyder PA-C - 04/29/2022 2:30 PM EDT Labs are normal. US shows stable renal cysts. Hilda Snyder PA-C documented in this encounterAv[facility] System06-07-2022 Miscellaneous Notes* Telephone Encounter - Hilda Snyder PA-C - 04/29/2022 8:29 AM EDT The following approved medication requests have been transmitted electronically. Signed Prescriptions Disp Refills levothyroxine (SYNTHROID) 25 mcg tablet 90 tablet 3 Sig: Take 1 tablet by mouth daily before breakfast. STACY: No Authorizing Provider: HILDA SNYDER PA-C * Telephone Encounter - Santa Pagan MA - 04/29/2022 7:54 AM EDT RX INSTRUCTIONS: Patient aware RX will be sent to pharmacy. No need to notify patient. Last OV: 04/11/22 Last refill: 02/25/21 With 90 and 3 refills Last oarrs report completed: N/A PLEASE REVIEW ON [facility] Follow up: 10/15/22-6 month F/U with PCP Santa Pagan MA documented in this encounterAv[facility] System06-06-2022 History of Present illness Narrative* Leigh Ge RT(R) - 04/28/2022 8:30 AM EDT Radiology Service Progress Note PATIENT NAME: Katelynn Campuzano DATE OF SERVICE: April 28, 2022 TIME: 2:21 PM PATIENT IDENTITY VERIFICATION COMPLETED USING TWO (2) IDENTIFIERS: Name and Date of confirmedby patient verbally. FALL SCREENING: Has the patient had 2 falls in the last year or 1 fall with injury or currently using an Ambulatory Assistive Device (Walker, Cane, Wheelchair, Crutches, etc.)? No PATIENT GENDER DATA: Female. status: : No status: NO. PATIENT RELEVANT IMPLANT DATA REVIEWED: Not Applicable RADIOLOGY DEPARTMENT: Ultrasound PERIPHERAL IV DATA: Not applicable SIGNED BY: RT Mary(R) April 28, 2022 2:21 PM documented in this encounterAvita [facility] System05-21-2022 History of Past illness Narrative* Problem Noted Date Resolved Date IRB 18-454: [facility] Using [employer] Platform for Chronic Care of Patients with AF after Ablation Procedure- Randomized Study 12/02/2018 05/13/2019 Sciatica of right side 08/11/2017 8 A-fib 06/24/2017 07/06/2017 Lumbar compression fracture 04/15/201703/24 Paronychia of finger 05/14/2016 12/17/2016 Atrial fibrillation, persistent 09/04/2015 12/27/2018 Overview: S/p DCCV Oct 2016 and PV! Jun 23 2017. [id number] risk score: 3. On Flecainide and chronic AC with Rivaroxaban. Plan: Monitor in the CICU Will hold AC for now due to concern for oropharynx bleeding after PVI. Daily ECgs Continue Flecainide F/u EP recs. Situational depression 06/07/2014 1 Vitamin D deficiency 08/17/2013 01/07/2018 Secondary hyperparathyroidism, non-renal 005 01/07/2018 Abdominal pain, left upper quadrant 07/17/2016 Hyperparathyroidism, unspecified 12/22/2006 documented as of this encounter (statuses as of 04/13/2022) [facility] Instructions* Patient Instructions* Cholo Soriano MD - 04/11/2022 8:45 AM EDT Please go to the health dept to get a Tdap (tetnus booster) Please get labs and urine test done on or after 09/26/2022 prior to your next visit. documented in this encounterAvita Health System05-20-2022 History of Present illness Narrative* Cholo Soriano MD - 04/11/2022 8:10 AM EDT Medicare Yearly Visit Medical B eligibilty date NA Date of last exam 04/03/2021 PAST MEDICAL HISTORY PAST MEDICAL HISTORY Diagnosis Date Acquired hypothyroidism 07/16/2016 Continue home Levothyroxine dose. Calcaneal spur 11/01/2007 Diaphragmatic hernia without mention of obstruction or gangrene Encounter for gynecological examination 04/03/2021 Seeing [facility] Essential hypertension 09/24/2010 On Atenolol and HCTZ Generalized osteoarthrosis, unspecified site 02/11/2007 GERD without esophagitis Hip arthritis 07/23/2009 History of cardiac radiofrequency ablation Hyperparathyroidism, unspecified (HCC) s/p PV! 06/23/17 Hyperuricemia 06/06/2013 Lumbar compression fracture (HCC) 04/15/2017 Lumbar degenerative disc disease 04/15/2017 Mixed hyperglyceridemia 12/15/2016 Morbid obesity due to excess calories (HCC) 07/03/[address] lung nodules on CT 08/24/2018 Obstructive sleep apnea syndrome 06/24/2017 On CPAP at home. 7 cm pressure Oropharyngeal bleeding 06/24/2017 Happened intraop. Unclear etiology. Initial ENT evaluation reportedly did not reveal any clear source of bleeding. Patient received protamine for heparin reversal intraop and was successfully extubated. Plan: No further AC while in the CICU. F/u ENT recommendations.. Continue Dexamethasone to preevent airway edema. Monitored in the ICU and transferred to the [facility]. - discussed with the ENT team, r Osteopenia Paroxysmal atrial fibrillation (HCC) Personal history of colonic polyps Colon polyps S/P ablation of atrial fibrillation 06/24/2017 Date of procedure 06/23/17. Indication: persistent atrial fibrillation. 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 Unspecified hemorrhoids without mention of complication Hemorrhoids Vitamin D deficiency 08/17/2013 PAST SURGICAL HISTORY PAST SURGICAL HISTORY Procedure Laterality Date COLONOSCOP W/ OR W/O BRS SPEC 09/28/2014 Colonoscopy COLONOSCOP W/ OR W/O BRS SPEC 04/11/2019 Colonoscopy, repeat 5 years COLONOSCOPY 03/29/2001 Repeat in EGD 11/06/2003 for c/o chest pain EGD W/O BRS SPECIMEN W/BX 05/20/2011 HEART SURGERY HX KNEE SCOPE,DIAGNOSTIC Arthroscopy, knee right LEFT HEART CATH,PERCUTANEOUS LIGATE FALLOPIAN TUBE PAST SURGICAL HISTORY OF cataracts bilateral PAST SURGICAL HISTORY OF 06/23/2017 heart ablation PAST SURGICAL HISTORY OF 08/17/2018 heart ablation TOTAL HIP REPLACEMENT 04/08/2010 right hip TOTAL KNEE REPLACEMENT 04/14/2007 Knee replacement, total/rt TOTAL KNEE REPLACEMENT 1997 Knee replacement, total lt VAGINAL HYSTERECTOMY 1991 Hysterectomy, vaginal [fibroids and bleeding[[ ALLERGIES: Sulfa (Sulfonamide Antibiotics), Lodine [Etodolac], and Penicillins Medications reviewed: Yes FAMILY HISTORY FAMILY HISTORY Problem Relation Age of Onset Diabetes Mother Thyroid Mother other (Other) Mother colon polyps - not CA Heart Father other (Other) Brother colon polyps- not CA Cancer Daughter 4 neuroblastoma SOCIAL HISTORY: SOCIAL HISTORY Social History Tobacco Use Smoking status: Never Smoker Smokeless tobacco: Never Used Substance Use Topics Alcohol use: Never Drug use: No Katelynn works out regularly 2 times per week with an instructor and pool 2-3 days a week. She watches her diet for sodium, low fat and low cholesterol most of the time. List of current specialists seen: Dr. Oswald, Dr. Moore (ortho: Knee and Hip) and [facility] End of Live Planning discussed including patients advanced directive wishes: Yes I am willing to follow Katelynn's advanced directives. PHQ-2 / Depression screen Depression Screening 08/24/2018 09/26/2019 04/01/2021 04/11/2022 PHQ-2 Score 0 0 0 0 PHQ-9 Score - - 1 - REECE-2 Total Score - - - - Depression screening tool completed and reviewed. Based on score and interview, patient is not at risk for depression. Screening tool discussed with patient, and I recommended no further interventionat this time. Functional Ability/Safety Screen 1. Was the patient's timed Up and Go test unsteady or longer than 30 seconds? No 2. Does the patient need help with the phone, transportation, shopping,preparing meals, housework, laundry, medications or managing money? No 3. Does your home have rugs in the hallway (Y), lack of grab bars in the bathroom(Y), lack of handrails on the stairs or have poor lighting? No Hearing Evaluation: may have slight decreased hearing on the left. PHYSICAL EXAM BP 122/68 Pulse 60 Resp 16 Ht 173 cm (5' 8.11 ) Wt 119.3 kg (263 lb) SpO2 98% BMI 39.86kg/m Alert and oriented X 3: YES Body mass index is 39.86 kg/m . Visual acuity: sees optho See below ASSESSMENT/PLAN: 72 year old female The following prevention plan was discussed during the office visit and provided to the patient: See below Cholo Soriano MD Chief Complaint Patient presents with: Medicare Wellness Exam HPI Katelynn Campuzano is a 72 year old female who presents here today for extensive. Patient with Hx hypothyroidism, HTN, GERD, hyperlipidemia, A. Fib, ROZ on CPAP, Hx of lung nodules,obesity, Hx of colon polyps, arthritis, osteopenia as well as those reviewed and addressed below and in ROS. Patient has been doing ok. Saw Ortho in January and diagnosed with right hip bursitis. She also saw AP back in January for right sided pain. She had strained it shoveling and was getting better but then fell on her side in mid February and had increased pain x-rays did show a right lateral rib fracture. This has been slowing improving but very slowly. Pain sometimes in the front and back and worse afterdoing some of her exercises. No nausea, vomiting, diarrhea. No melena or hematochezia. Past medical history, appointments, medications, allergies reviewed. Previous Medical History PAST MEDICAL HISTORY Diagnosis Date Acquired hypothyroidism 07/16/2016 Continue home Levothyroxine dose. 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 06/23/17 Hyperuricemia 06/06/2013 Low serum vitamin B12 04/08/2021 Lumbar compression fracture (HCC) 04/15/2017 Lumbar degenerative disc disease 04/15/2017 Medicare annual wellness visit, subsequent 04/03/2021 Last Done: 04/03/2021 Mixed hyperglyceridemia 12/15/2016 Morbid obesity due to excess calories (HCC) 07/03/[address] nodules on CT 08/24/2018 Obstructive sleep apnea syndrome 06/24/2017 On CPAP at home. 7 cm pressure Oropharyngeal bleeding 06/24/2017 Happened intraop. Unclear etiology. Initial ENT evaluation reportedly did not reveal any clear source of bleeding. Patient received protamine for heparin reversal intraop and was successfully extubated. Plan: No further AC while in the CICU. F/u ENT recommendations.. Continue Dexamethasone to preevent airway edema. Monitored in the ICU and transferred to the [facility]. - discussed with the ENT team, r Osteopenia Paroxysmal atrial fibrillation (HCC) Personal history of colonic polyps Colon polyps S/P ablation of atrial fibrillation 06/24/2017 Date of procedure 06/23/17. Indication: persistent atrial fibrillation. 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 Unspecified hemorrhoids without mention of complication Hemorrhoids Vitamin D deficiency 08/17/2013 Previous Surgical History PAST SURGICAL HISTORY Procedure Laterality Date ARTHROSCOPY KNEE DIAGNOSTIC W/WO SYNOVIAL BX SPX Arthroscopy, knee right ARTHRP ACETBLR/PROX FEM PROSTC AGRFT/ALGRFT 04/08/2010 right hip ARTHRP KNE CONDYLE&PLATU MEDIAL&LAT COMPARTMENTS 04/14/2007 Knee replacement, total/rt ARTHRP KNE CONDYLE&PLATU MEDIAL&LAT COMPARTMENTS 1998 Knee replacement, total lt COLONOSCOPY 03/29/2001 Repeat in -2010 COLONOSCOPY FLX DX W/COLLJ SPEC WHEN PFRMD 09/28/2014 Colonoscopy COLONOSCOPY FLX DX W/COLLJ SPEC WHEN PFRMD 04/11/2019 Colonoscopy, repeat 5 years EGD 11/06/2003 for c/o chest pain EGD TRANSORAL BIOPSY SINGLE/MULTIPLE 05/20/2011 HEART SURGERY HX LEFT HEART CATH,PERCUTANEOUS LIG/TRNSXJ FLP TUBE ABDL/VAG APPR UNI/BI PAST SURGICAL HISTORY OF cataracts bilateral PAST SURGICAL HISTORY OF 06/23/2017 heart ablation PAST SURGICAL HISTORY OF 08/17/2018 heart ablation VAGINAL HYSTERECTOMY UTERUS 250 GM/< 1992 Hysterectomy, vaginal [fibroids and bleeding[[ Family History FAMILY HISTORY Problem Relation Age of Onset Diabetes Mother Thyroid Mother other (Other) Mother colon polyps - not CA Heart Father other (Other) Brother colon polyps- not CA Cancer Daughter 4 neuroblastoma Patient Allergies ALLERGIES Allergen Reactions Sulfa (Sulfonamide * Hives Lodine [Etodolac] Unknown Penicillins Unknown Current Medications Current Outpatient Medications on File Prior to Visit Medication Sig allopurinol (ZYLOPRIM) 300 mg tablet Take 1 tablet by mouth twice daily. hydroCHLOROthiazide (HYDRODIURIL, ESIDRIX) 25 mg tablet Take 1 tablet by mouth once daily. cyanocobalamin (VITAMIN B-12) 1,000 mcg tab Take 1 tablet by mouth once daily. Cholecalciferol, Vitamin D3, (VITAMIN D-3) 50 mcg (2,000 unit) cap Take 1 capsule by mouth once daily. levothyroxine (SYNTHROID) 25 mcg tablet Take 1 tablet by mouth daily before breakfast. XARELTO 20 mg tablet TAKE 1 TABLET BY MOUTH EVERY DAY WITH DINNER lisinopril (ZESTRIL, PRINIVIL) 5 mg tablet Take 5 mg by mouth once daily. flecainide (TAMBOCOR) 150 mg tablet Take 0.5 tablets by mouth twice daily. acetaminophen (TYLENOL) 500 mg tablet Take 1,000 mg by mouth at bedtime as needed. metoprolol tartrate, short acting, (LOPRESSOR) 12.5 mg tab Take 12.5 mg by mouth every 12 hours. No current facility-administered medications on file prior to visit. Social History Social History Tobacco Use Smoking status: Never Smoker Smokeless tobacco: Never Used Substance Use Topics Alcohol use: Never Drug use: No Review of Symptoms REVIEW OF SYSTEMS GENERAL: No weight loss, malaise or fevers HEENT: Negative for frequent or significant headaches, No changes in vision, no nose bleeds or other nasal problems. Hearing has been decreasing. NECK: Negative for lumps, goiter, pain and significant neck swelling RESPIRATORY: Negative for cough, hemoptysis, wheezing, COPD, dyspnea or shortness of breath CARDIOVASCULAR: Negative for chest pain, leg swelling, hypertension, CHF or palpitations GI: No nausea, vomiting, or diarrhea, No heartburn or reflux symptoms and no blood : No history of dysuria, frequency or incontinence MUSCULOSKELETAL: Negative for new or changes in her typical joint pain or swelling, back pain or muscle pain SKIN: Negative for lesions, rash, and itching PSYCH: Negative for sleep disturbance, mood disorder and recent psychosocial stressors HEMATOLOGY/LYMPHOLOGY: Negative for prolonged bleeding, bruising easily or swollen nodes ENDOCRINE: Negative for cold or heat intolerance, polyuria, polydipsia and goiter NEURO: No history of headaches, syncope, paralysis, seizures or tremors. Noting a numbness/burnig in the bottom of her feet mainly in the metatarsal areas on both feet. EXAM: BP 122/68 Pulse 60 Resp 16 Ht 173 cm (5' 8.11 ) Wt 119.3 kg (263 lb) SpO2 98% BMI 39.86kg/m General Appearance: Well appearing, alert, in no acute distress, well-hydrated, well nourished. andObese. Skin: Skin color, texture, turgor normal, no suspicious rashes or lesions. Head: Normocephalic, no masses, lesions, tenderness or abnormalities. Eyes: Anicteric sclera. Pupils are equally round and reactive to light. Extraocular movements are intact. . Ears: External ears, TM's normal, canals clear. Neck: Supple, no adenopathy; thyroid symmetric, normal size, no bruits. Lungs: Lungs clear to auscultation. No wheezing, rhonchi, rales.. Heart: RRR without murmur, gallop, or rubs. No ectopy. Abdomen: Normal abdominal exam, Abdomen soft, non-tender. Bowel sounds normal. No masses, organomegaly. Extremities: No deformities, edema, skin discoloration. Musculoskeletal: has tenderness to palpation of the right lower lateral ribs. Muscular strength intact, No joint swelling, deformity, or tenderness. Peripheral Pulses: Normal. Neurologic: Gait normal. Reflexes normal and symmetric. Sensation to light touch and crainal nerves2-12 intact.. Health Maintenance List ADVANCE DIRECTIVE DISCUSSION Never done DEPRESSION SCREENING due on 04/01/2022 MAMMOGRAM due on 10/04/2022 ANNUAL PCP TEAM CHRONIC DISEASE VISIT due on 04/11/2023 BP CONTROLLED (<130/80) due on 04/11/2023 COLORECTAL CANCER SCREENING due on 04/11/2024 DIABETES SCREEN due on 03/24/2025 DTAP,TDAP,TD(3 - Td or Tdap) due on 01/12/2026 LIPID SCREEN due on 03/24/2027 BONE DENSITY Completed INFLUENZA Completed HEPATITIS C SCREENING Completed PNEUMOVAX AGE 65 AND OVER WITH 5YR LOOKBACK Completed SHINGRIX VACCINE Completed COVID-19 VACCINE Completed MENINGOCOCCAL CONJUGATE Aged Out Data reviewed Component Latest Ref Rng & Units 10/01/2021 10/25/2021 03/24/2022 WBC 3.70 - 11.00 k/uL 5.69 RBC 3.90 - 5.20 m/uL 4.07 Hemoglobin 11.5 - 15.5 g/dL 12.3 Hematocrit 36.0 - 46.0 % 36.9 MCV 80.0 - 100.0 fL 90.7 MCH 26.0 - 34.0 pG 30.2 MCHC 30.5 - 36.0 g/dL 33.3 RDW-CV 11.5 - 15.0 % 13.5 Platelet Count 150 - 400 k/uL 252 MPV 9.0 - 12.7 fL 10.1 Neut% % 62.2 Abs Neut (ANC) 1.45 - 7.50 k/uL 3.52 Lymph% % 28.1 Abs Lymph 1.00 - 4.00 k/uL 1.60 [facility]% % 6.[address] [facility] [facility] <0.87 k/uL 0.38 Eosin% % 2.1 Abs Eosin <0.46 k/uL 0.12 Baso% % 0.9 Abs Baso <0.11 k/uL 0.05 Nucleated Reds 0 /100 WBC 0.0 Absolute nRBC <0.01 k/uL <0.01 Diff Type Auto Diff Protein, Total 6.3 - 8.0 g/dL 7.2 7.2 Albumin 3.9 - 4.9 g/dL 4.4 4.6 Calcium 8.5 - 10.2 mg/dL 9.6 10.0 Bilirubin, Total 0.2 - 1.3 mg/dL 1.5 (H) 1.1 Alkaline Phosphatase 34 - 123 U/L 105 111 AST 13 - 35 U/L 16 16 Glucose 74 - 99 mg/dL 103 (H) 97 BUN 7 - 21 mg/dL 21 23 (H) Creatinine 0.58 - 0.96 mg/dL 0.72 0.68 Sodium 136 - 144 mmol/L 136 136 Potassium 3.7 - 5.1 mmol/L 3.9 4.2 Chloride 97 - 105 mmol/L 100 101 CO2 22 - 30 mmol/L 23 25 Anion Gap 9 - 18 mmol/L 13 10 ALT 7 - 38 U/L 13 12 eGFR- >60 eGFR-All Other Races . >60 Color Yellow Light Yellow (A) Clarity Clear Clear Glucose, Urine Negative mg/dL Negative Bilirubin, Urine Negative Negative Ketones, Urine Negative Negative Specific [place], Ur 1.005 - 1.030 1.014 Hemoglobin/Blood,Ur Negative Negative pH, Urine 5.0 - 8.0 6.0 Protein, Urine Negative Negative Urobilinogen Negative E.U./dL Negative Nitrites Negative Negative Leukest Negative Negative Comment SEE COMMENT Urine Allan Comment SEE COMMENT WBC, Urine 0 - 5 /HPF 0-5 RBC, Urine 0 - 3 /HPF 0-3 Epithelial Cells /HPF SEE COMMENT eGFR >=60 mL/min/1.73m 92 Total Cholesterol, Nonfasting <200 mg/dL 187 185 Triglycerides, Nonfasting <150 mg/dL 189 (H) 173 (H) HDL Cholesterol, Nonfasting >39 mg/dL 36 (L) 39 (L) LDL Cholesterol, Nonfasting <100 mg/dL 113 (H) 111 (H) Non HDL Cholesterol, Nonfasting <130 mg/dL 151 (H) 146 (H) VLDL Cholesterol, Nonfasting <30 mg/dL 38 (H) 35 (H) Total Chol/HDL Ratio, Nonfasting <5.10 mg/dL 5.19 (H) 4.74 LDL/HDL Ratio, Nonfasting <2.54 mg/dL 3.14 (H) 2.85 (H) TSH 0.270 - 4.200 mIU/L 2.850 2.360 Uric Acid 2.5 - 6.6 mg/dL 3.6 03/12/2022 12:00 PM - Radiology, [place] In Impression IMPRESSION: Suspected acute nondisplaced fracture of the right lateral fifth rib. Correlation with physical examination for possible point tenderness in this region is requested. Artillery Meteorological Man: SEBAS Transcribe Date/Time: Mar 12 2022 11:55A Dictated by : PASCALE INTERIANO MD This examination was interpreted and the report reviewed and electronically signed by: PASCALE INTERIANO MD on Mar 12 2022 11:58AM EST Results-Findings * * *Final Report* * * DATE OF EXAM: Mar 12 2022 10:07AM WOX [id number] - XR RIB/CHST 3V AP RIB/OBL/CHST R / PROCEDURE REASON: multiple diagnoses * * * * Physician Interpretation * * * * CLINICAL INDICATION: Pain after fall TECHNIQUE: 3 view right sided radiographic rib series with inclusion of a single frontal view of the chest for purposes of comparison/symmetry COMPARISON: Correlation made to chest x-ray dated March 05, 2021 FINDINGS: Osseous demineralization. Remote posttraumatic deformity of the right posterior fourth rib. Suspected nondisplaced acute fracture of the right lateral fifth rib. No confluent consolidation. No discernible pleural effusion or pneumothorax. Stable cardiomediastinal silhouette. A/P ASSESSMENT/PLAN: 1. Medicare annual wellness visit, subsequent - ICD9: V70.0, ICD10: Z00.00 (primary diagnosis) - Counseled on healthy diet and regular exercise - Calcium intake with supplements or by diet of 1000 mg/day for under 50, 1200- 1500 mg/day for 50+ - Patient was counseled [id number] by myself (the billing provider) for the following immunizations and vaccine components, including side effects: TdaP. Advised to get at the health dept - Follow up for annual exam in one year 2. Essential hypertension - ICD9: 401.9, ICD10: I10 - good control - Continue current medication(s) - Recommended regular aerobic exercise. - Recommend home blood pressure monitoring, to bring results in on next visit - Goal of BP <130/80 3. Mixed hyperglyceridemia - ICD9: 272.3, ICD10: E78.3 - good control - Encouraged following a low fat, low cholesterol diet. - Discussed the benefits of regular aerobic exercise and weight loss. - Encouraged following a low carbohydrate, healthy oil intake diet. - Continue current therapy. 4. Acquired hypothyroidism - ICD9: 244.9, ICD10: E03.9 - Instructed patient on importance of taking on an empty stomach either first thing in the morning or at bedtime. - continue current dose of Synthroid 5. Hyperparathyroidism (HCC) - ICD9: 252.00, ICD10: E21.3 - Normal calcium 6. Paroxysmal atrial fibrillation (HCC) - ICD9: 427.31, ICD10: I48.0 - Stable cont management per Cardio 7. GERD without esophagitis - ICD9: 530.81, ICD10: K21.9 - Managed per diet. 8. Low serum vitamin B12 - ICD9: 266.2, ICD10: E53.8 - Check B12 and folate 9. Obesity, Class II, BMI 35-39.9 - ICD9: 278.00, ICD10: E66.9 Weight decreasing - Behavioral intervention 10. Hyperuricemia - ICD9: 790.6, ICD10: E79.0 - Cont allopurinol. 11. Obstructive sleep apnea syndrome - ICD9: 327.23, ICD10: G47.33 - Cont CPAP with benefit 12. Lumbar degenerative disc disease - ICD9: 722.52, ICD10: M51.36 - Seeing ortho 13. Hyperlipidemia, mixed - ICD9: 272.2, ICD10: E78.2 - As above 14. Thyroid nodule - ICD9: 241.0, ICD10: E04.1 - Seeing surgery for management . 15. Living will in place - ICD9: V49.89, ICD10: Z78.9 - Patient to bring in copies 16. Advance directive discussed with patient - ICD9: V65.49, ICD10: Z71.89 - As per #15 17. Multiple lung nodules on CT - ICD9: 793.19, ICD10: R91.[address] in April 2022 18. Bilateral renal cysts - ICD9: 753.10, ICD10: N28.1 - Repeat US with having the RUQ pain to make sure no changes. 19. Foot pain, bilateral - ICD9: 729.5, ICD10: M79.671, M79.672 - consult podiatry 20. RUQ pain - ICD9: 789.01, ICD10: R10.11 - Suspect this is due to her right lower lateral rib fracture and is tender in this are. 21. Closed fracture of one rib of right side with routine healing, subsequent encounter - ICD9: V54.19, ICD10: S22.31XD - Healing slowly. F/u 6 months routine check Lipid, BMP, UA, TSH and CBC prior I spent a total of 40 minutes on the date of the service which included preparing to see the patient, [id number] patient care, completing clinical documentation, performing a medically appropriate examination, counseling and educating the patient/family/caregiver and ordering medications, tests, or procedures. Cholo Soriano MD documented in this encounterAv[facility] System04-25-2022 History of Past illness Narrative* Problem Noted Date Resolved Date IRB 18-024: [facility] Using [employer] Platform for Chronic Care of Patients with AF after Ablation Procedure- Randomized Study 12/02/2018 05/13/2019 Sciatica of right side 08/11/2017 8 A-fib 06/24/2017 07/06/2017 Paronychia of finger 05/14/2016 12/17/2016 Atrial fibrillation, persistent 09/04/2015 12/27/2018 Overview: S/p DCCV Oct 2016 and PV! Jun 23 2017. [id number] risk score: 3. On Flecainide and chronic AC with Rivaroxaban. Plan: Monitor in the CICU Will hold AC for now due to concern for oropharynx bleeding after PVI. Daily ECgs Continue Flecainide F/u EP recs. Situational depression 06/07/2014 1 Vitamin D deficiency 08/17/2013 01/07/2018 Secondary hyperparathyroidism, non-renal 005 01/07/2018 Abdominal pain, left upper quadrant 07/17/2016 Hyperparathyroidism, unspecified 12/22/2006 documented as of this encounter (statuses as of 03/17/2022) [facility] Miscellaneous Notes* Telephone Encounter - Dianna Cruz RN - 03/17/2022 2:44 PM EDT Patient returned call and given provider's message below and patient verbalized understanding. Beatriz Cruz RN \ * Telephone Encounter - Zainab Morataya LPN - 03/17/2022 2:08 PM EDT Left message for pt to contact office. Zainab Morataya LPN * Telephone Encounter - Cholo Soriano MD - 03/17/2022 2:03 PM EDT Let patient know she can take aleve OTC 2 tabs twice a day. If upsets stomach switch to tylenol forpain. This will take 6-8 weeks to heal. * Telephone Encounter - Cary Bruno MA - 03/17/2022 10:06 AM EDT Any other instructions for healing, time frame, other ways to help the process? Cary Bruno MA * Telephone Encounter - Cholo Soriano MD - 03/16/2022 12:37 PM EDT Let patient know the rib x-rays do show a suspected non-displaced right 5th rib fracture. documented in this encounterAvita Health System04-05-2022 NoteHNO ID: [id number] Author: MICHELLE Downing Service: Radiology Author Type: Technologist Type: Progress Notes Filed: 02/25/2022 7:57 AM Note Text: Radiology Service Progress Note PATIENT NAME: Katelynn Campuzano DATE OF SERVICE: February 25, 2022 TIME: 7:57 AM PATIENT IDENTITY VERIFICATION COMPLETED USING TWO (2) IDENTIFIERS: Name and Date of confirmed by patient verbally. FALL SCREENING: Has the patient had 2 falls in the last year or 1 fall with injury or currently using an Ambulatory Assistive Device (Walker, Cane, Wheelchair, Crutches, etc.)? No PATIENT GENDER DATA: Female. status: : No status: NO. PATIENT RELEVANT IMPLANT DATA REVIEWED: Not Applicable RADIOLOGY DEPARTMENT: General X-ray: Exam(s) Completed: Pelvis X-Ray: Pelvis General AP PERIPHERAL IV DATA: Not applicable SIGNED BY: MICHELLE Downing February 25, 2022 7:57 AMThe Jewish [id number] History of Present illness Narrative* Eber Moore MD - 02/25/2022 8:05 AM EDT Images from the original note were not included. DEPARTMENT OF ORTHOPAEDICS PATIENT INFO: Katelynn Torres Rostmarquita 71 year old REFERRING M.D.: Jay Goodman [address] [facility] [address] HISTORY CHIEF COMPLAINT: right hip HPI: Katelynn is a 71 year old female that presents today with the complaints of right hip. History of righttha done by Dr Everett in 2009. She was shoveling in December when her hip started to flareup on her. The pain is largely lateral around the trochanter and posterior lateral trochanter. Some of her exercise classes have made it worse. The pain is now improving. She cannot take NSAIDs because she is on Xarelto. Of note she also has lumbar back issues and sciatica. ROS: No new medical issues PAST MEDICAL HISTORY Diagnosis Date Acquired hypothyroidism 07/16/2016 Continue home Levothyroxine dose. Bilateral renal cysts 11/26/2021 US 10/2021 Calcaneal spur 11/01/2007 Diaphragmatic hernia without mention of obstruction or gangrene Encounter for gynecological examination 04/03/2021 Seeing [facility]ER Essential hypertension 09/24/2010 On Atenolol and HCTZ Generalized osteoarthrosis, unspecified site 02/11/2007 GERD without esophagitis Hip arthritis 07/23/2009 History of cardiac radiofrequency ablation Hyperparathyroidism, unspecified (HCC) s/p PV! 06/23/17 Hyperuricemia 06/06/2013 Low serum vitamin B12 04/08/2021 Lumbar compression fracture (HCC) 04/15/2017 Lumbar degenerative disc disease 04/15/2017 Medicare annual wellness visit, subsequent 04/03/2021 Last Done: 04/03/2021 Mixed hyperglyceridemia 12/15/2016 Morbid obesity due to excess calories (HCC) 07/03/[address] 08/24/2018 Obstructive sleep apnea syndrome 06/24/2017 On CPAP at home. 7 cm pressure Oropharyngeal bleeding 06/24/2017 Happened intraop. Unclear etiology. Initial ENT evaluation reportedly did not reveal any clear source of bleeding. Patient received protamine for heparin reversal intraop and was successfully extubated. Plan: No further AC while in the CICU. F/u ENT recommendations.. Continue Dexamethasone to preevent airway edema. Monitored in the ICU and transferred to the [facility]. - discussed with the ENT team, r Osteopenia Paroxysmal atrial fibrillation (HCC) Personal history of colonic polyps Colon polyps S/P ablation of atrial fibrillation 06/24/2017 Date of procedure 06/23/17. Indication: persistent atrial fibrillation. 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 Unspecified hemorrhoids without mention of complication Hemorrhoids Vitamin D deficiency 08/17/2013 PAST SURGICAL HISTORY Procedure Laterality Date ARTHROSCOPY KNEE DIAGNOSTIC W/WO SYNOVIAL BX SPX Arthroscopy, knee right ARTHRP ACETBLR/PROX FEM PROSTC AGRFT/ALGRFT 04/08/2010 right hip ARTHRP KNE CONDYLE&PLATU MEDIAL&LAT COMPARTMENTS 04/14/2007 Knee replacement, total/rt ARTHRP KNE CONDYLE&PLATU MEDIAL&LAT COMPARTMENTS 1997 Knee replacement, total lt COLONOSCOPY 03/29/2001 Repeat in COLONOSCOPY FLX DX W/COLLJ SPEC WHEN PFRMD 09/28/2014 Colonoscopy COLONOSCOPY FLX DX W/COLLJ SPEC WHEN PFRMD 04/11/2019 Colonoscopy, repeat 5 years EGD 11/06/2003 for c/o chest pain EGD TRANSORAL BIOPSY SINGLE/MULTIPLE 05/20/2011 HEART SURGERY HX LEFT HEART CATH,PERCUTANEOUS LIG/TRNSXJ FLP TUBE ABDL/VAG APPR UNI/BI PAST SURGICAL HISTORY OF cataracts bilateral PAST SURGICAL HISTORY OF 06/23/2017 heart ablation PAST SURGICAL HISTORY OF 08/17/2018 heart ablation VAGINAL HYSTERECTOMY UTERUS 250 GM/< 1992 Hysterectomy, vaginal [fibroids and bleeding[[ Current Outpatient Medications Medication Sig Dispense Refill allopurinol (ZYLOPRIM) 300 mg tablet Take 1 tablet by mouth twice daily. 180 tablet 3 hydroCHLOROthiazide (HYDRODIURIL, ESIDRIX) 25 mg tablet Take 1 tablet by mouth once daily. 90 tablet 1 cyanocobalamin (VITAMIN B-12) 1,000 mcg tab Take 1 tablet by mouth once daily. Cholecalciferol, Vitamin D3, (VITAMIN D-3) 50 mcg (2,000 unit) cap Take 1 capsule by mouth once daily. 90 capsule 3 levothyroxine (SYNTHROID) 25 mcg tablet Take 1 tablet by mouth daily before breakfast. 90 tablet 3 XARELTO 20 mg tablet TAKE 1 TABLET BY MOUTH EVERY DAY WITH DINNER 90 tablet 1 lisinopril (ZESTRIL, PRINIVIL) 5 mg tablet Take 5 mg by mouth once daily. flecainide (TAMBOCOR) 150 mg tablet Take 0.5 tablets by mouth twice daily. 90 tablet 3 acetaminophen (TYLENOL) 500 mg tablet Take 1,000 mg by mouth at bedtime as needed. metoprolol tartrate, short acting, (LOPRESSOR) 12.5 mg tab Take 12.5 mg by mouth every 12 hours. No current facility-administered medications for this visit. ALLERGIES Allergen Reactions Sulfa (Sulfonamide * Hives Lodine [Etodolac] Unknown Penicillins Unknown FAMILY HISTORY Problem Relation Age of Onset Diabetes Mother Thyroid Mother other (Other) Mother colon polyps - not CA Heart Father other (Other) Brother colon polyps- not CA Cancer Daughter 4 neuroblastoma Social History Tobacco Use Smoking status: Never Smoker Smokeless tobacco: Never Used Substance Use Topics Alcohol use: Never Drug use: No PHYSICAL EXAM: There is no height or weight on file to calculate BMI. GENERAL:Wnl nutrition, no deformities, healthy appearing CV: No extremity swelling, varices, edema, pallor, erythema PULSES: Normal,bilateral femoral 2+/2+, popliteal 2+/2+, dorsalis pedis 2+/2+, posterior tibial 2+/2+ SKIN: No rash, lesions. involving the four extremities. NEURO/PSYCH: A/Ox3. Nl mood, with no signs of depression, anxiety, or agitation. There are no pathologic reflexes. LYMPHATIC: There is no adenoathy to palpation. LOWER EXTREMITIES: GAIT: normal Fluid motion of the right hip No pain with range of motion Tender palpation directly over posterior lateral trochanter Painful with abduction Slightly painful [place]inchfield but the pain is lateral X-RAYS: Well-appearing total hip replacement no evidence of loosening MEDICAL DECISION MAKING: ASSESSMENT: Greater trochanteric bursitis PLAN: Katelynn and I had a long discussion about treatment options. Her hip replacement is looking good at this point. I am happy to see her every 2 years for maintenance of this. She does have trochanteric bursitis, and she can continue with Tylenol, can use Voltaren gel, and I have offered physical therapyand she will let us know if she wants this ordered or not. Otherwise we will see every 2 years. Eber Moore MD Orthopaedic Surgery [phone] documented in this encounterAvita Health System04-05-2022 History of Present illness Narrative* Concepcion Mark, MICHELLE - 02/25/2022 7:40 AM EDT Radiology Service Progress Note PATIENT NAME: Katelynn Campuzano DATE OF SERVICE: February 25, 2022 TIME: 7:57 AM PATIENT IDENTITY VERIFICATION COMPLETED USING TWO (2) IDENTIFIERS: Name and Date of confirmedby patient verbally. FALL SCREENING: Has the patient had 2 falls in the last year or 1 fall with injury or currently using an Ambulatory Assistive Device (Walker, Cane, Wheelchair, Crutches, etc.)? No PATIENT GENDER DATA: Female. status: : No status: NO. PATIENT RELEVANT IMPLANT DATA REVIEWED: Not Applicable RADIOLOGY DEPARTMENT: General X-ray: Exam(s) Completed: Pelvis X-Ray: Pelvis General AP PERIPHERAL IV DATA: Not applicable SIGNED BY: MICHELLE Downing February 25, 2022 7:57 AM documented in this encounterAvita Health System05-04-2021 NoteHNO ID: [id number] Author: MICHELLE Downing Service: Radiology Author Type: Clinical Shed Boss Type: Progress Notes Filed: 03/26/2021 8:27 AM Note Text: Radiology Service Progress Note PATIENT NAME: Katelynn Campuzano DATE OF SERVICE: March 26, 2021 TIME: 8:27 AM PATIENT IDENTITY VERIFICATION COMPLETED USING TWO (2) IDENTIFIERS: Name and Date of confirmed by patient verbally. FALL SCREENING: Has the patient had 2 falls in the last year or 1 fall with injury or currently using an Ambulatory Assistive Device (Walker, Cane, Wheelchair, Crutches, etc.)? No PATIENT GENDER DATA: Female. status: : No status: NO. PATIENT RELEVANT IMPLANT DATA REVIEWED: Not Applicable RADIOLOGY DEPARTMENT: General X-ray: Exam(s) Completed: Lower Extremity X-Ray(s): Knee, AP / Lat / Merchant Bilateral and Wt. Bearing PERIPHERAL IV DATA: Not applicable SIGNED BY: MICHELLE Downing March 26, 2021 8:27 AMThe Jewish [id number] History of Past illness Narrative* Problem Noted Date Resolved Date IRB 18-444: [facility] Using [employer] Platform for Chronic Care of Patients with AF after Ablation Procedure- Randomized Study 12/02/2018 05/13/2019 Sciatica of right side 08/11/2017 8 A-fib 06/24/2017 07/06/2017 Paronychia of finger 05/14/2016 12/17/2016 Atrial fibrillation, persistent 09/04/2015 12/27/2018 Overview: S/p DCCV Oct 2016 and PV! Jun 23 2017. [id number] risk score: 3. On Flecainide and chronic AC with Rivaroxaban. Plan: Monitor in the CICU Will hold AC for now due to concern for oropharynx bleeding after PVI. Daily ECgs Continue Flecainide F/u EP recs. Situational depression 06/07/2014 1 Vitamin D deficiency 08/17/2013 01/07/2018 Secondary hyperparathyroidism, non-renal 005 01/07/2018 Abdominal pain, left upper quadrant 07/17/2016 Hyperparathyroidism, unspecified 12/22/2006 documented as of this encounter (statuses as of 02/25/2022) [facility] of Past illness Narrative* Problem Noted Date Resolved Date IRB 18444: [facility] Using [employer] Platform for Chronic Care of Patients with AF after Ablation Procedure- Randomized Study 12/02/2018 05/13/2019 Sciatica of right side 08/11/2017 8 A-fib 06/24/2017 07/06/2017 Paronychia of finger 05/14/2016 12/17/2016 Atrial fibrillation, persistent 09/04/2015 12/27/2018 Overview: S/p DCCV Oct 2016 and PV! Jun 23 2017. [id number] risk score: 3. On Flecainide and chronic AC with Rivaroxaban. Plan: Monitor in the CICU Will hold AC for now due to concern for oropharynx bleeding after PVI. Daily ECgs Continue Flecainide F/u EP recs. Situational depression 06/07/2014 1 Vitamin D deficiency 08/17/2013 01/07/2018 Secondary hyperparathyroidism, non-renal 005 01/07/2018 Abdominal pain, left upper quadrant 07/17/2016 Hyperparathyroidism, unspecified 12/22/2006 documented as of this encounter (statuses as of 02/26/2022) [facility] of [facility] illness Narrative* Problem Noted Date Resolved Date IRB 18-444: [facility] Using [employer] Platform for Chronic Care of Patients with AF after Ablation Procedure- Randomized Study 12/02/2018 05/13/2019 Sciatica of right side 08/11/2017 8 A-fib 06/24/2017 07/06/2017 Lumbar compression fracture 04/15/201703/24 Paronychia of finger 05/14/2016 12/17/2016 Atrial fibrillation, persistent 09/04/2015 12/27/2018 Overview: S/p DCCV Oct 2016 and PV! Jun 23 2017. [id number] risk score: 3. On Flecainide and chronic AC with Rivaroxaban. Plan: Monitor in the CICU Will hold AC for now due to concern for oropharynx bleeding after PVI. Daily ECgs Continue Flecainide F/u EP recs. Situational depression 06/07/2014 1 Vitamin D deficiency 08/17/2013 01/07/2018 Secondary hyperparathyroidism, non-renal 005 01/07/2018 Abdominal pain, left upper quadrant 07/17/2016 Hyperparathyroidism, unspecified 12/22/2006 documented as of this encounter (statuses as of 04/29/2022) [facility] Narrative* Problem Noted Date Resolved Date IRB 18-311: [facility] Using [employer] Platform for Chronic Care of Patients with AF after Ablation Procedure- Randomized Study 12/02/2018 05/13/2019 Sciatica of right side 08/11/2017 8 A-fib 06/24/2017 07/06/2017 Lumbar compression fracture 04/15/201703/24 Paronychia of finger 05/14/2016 12/17/2016 Atrial fibrillation, persistent 09/04/2015 12/27/2018 Overview: S/p DCCV Oct 2016 and PV! Jun 23 2017. [id number] risk score: 3. On Flecainide and chronic AC with Rivaroxaban. Plan: Monitor in the CICU Will hold AC for now due to concern for oropharynx bleeding after PVI. Daily ECgs Continue Flecainide F/u EP recs. Situational depression 06/07/2014 1 Vitamin D deficiency 08/17/2013 01/07/2018 Secondary hyperparathyroidism, non-renal 005 01/07/2018 Abdominal pain, left upper quadrant 07/17/2016 Hyperparathyroidism, unspecified 12/22/2006 documented as of this encounter (statuses as of 04/29/2022) [facility] Narrative* Problem Noted Date Resolved Date IRB 18444: [facility] Using [employer] Platform for Chronic Care of Patients with AF after Ablation Procedure- Randomized Study 12/02/2018 05/13/2019 Sciatica of right side 08/11/2017 8 A-fib 06/24/2017 07/06/2017 Lumbar compression fracture 04/15/20172 Paronychia of finger 05/14/2016 12/17/2016 Atrial fibrillation, persistent 09/04/2015 12/27/2018 Overview: S/p DCCV Oct 2016 and PV! Jun 23 2017. [id number] risk score: 3. On Flecainide and chronic AC with Rivaroxaban. Plan: Monitor in the CICU Will hold AC for now due to concern for oropharynx bleeding after PVI. Daily ECgs Continue Flecainide F/u EP recs. Situational depression 06/07/2014 1 Vitamin D deficiency 08/17/2013 01/07/2018 Secondary hyperparathyroidism, non-renal 005 01/07/2018 Abdominal pain, left upper quadrant 07/17/2016 Hyperparathyroidism, unspecified 12/22/2006 documented as of this encounter (statuses as of 05/06/2022) [facility] Narrative* Problem Noted Date Resolved Date IRB 18-254: [facility] Using [employer] Platform for Chronic Care of Patients with AF after Ablation Procedure- Randomized Study 12/02/2018 05/13/2019 Sciatica of right side 08/11/2017 8 A-fib 06/24/2017 07/06/2017 Lumbar compression fracture 04/15/201703/24 Paronychia of finger 05/14/2016 12/17/2016 Atrial fibrillation, persistent 09/04/2015 12/27/2018 Overview: S/p DCCV Oct 2016 and PV! Jun 23 2017. [id number] risk score: 3. On Flecainide and chronic AC with Rivaroxaban. Plan: Monitor in the CICU Will hold AC for now due to concern for oropharynx bleeding after PVI. Daily ECgs Continue Flecainide F/u EP recs. Situational depression 06/07/2014 1 Vitamin D deficiency 08/17/2013 01/07/2018 Secondary hyperparathyroidism, non-renal 005 01/07/2018 Abdominal pain, left upper quadrant 07/17/2016 Hyperparathyroidism, unspecified 12/22/2006 documented as of this encounter (statuses as of 05/07/2022) [facility] History of Past illness Narrative* Problem Noted Date Resolved Date IRB 18444: AFib Clinic [facility] Using [employer] Platform for Chronic Care of Patients with AF after Ablation Procedure- Randomized Study 12/02/2018 05/13/2019 Sciatica of right side 08/11/2017 8 A-fib 06/24/2017 07/06/2017 Lumbar compression fracture 04/15/201703/24 Paronychia of finger 05/14/2016 12/17/2016 Atrial fibrillation, persistent 09/04/2015 12/27/2018 Overview: S/p DCCV Oct 2016 and PV! Jun 23 2017. [id number] risk score: 3. On Flecainide and chronic AC with Rivaroxaban. Plan: Monitor in the CICU Will hold AC for now due to concern for oropharynx bleeding after PVI. Daily ECgs Continue Flecainide F/u EP recs. Situational depression 06/07/2014 1 Vitamin D deficiency 08/17/2013 01/07/2018 Secondary hyperparathyroidism, non-renal 005 01/07/2018 Abdominal pain, left upper quadrant 07/17/2016 Hyperparathyroidism, unspecified 12/22/2006 documented as of this encounter (statuses as of 05/19/2022) [facility] History of Past illness Narrative* Problem Noted Date Resolved Date IRB 18444: [facility] Using [employer] Platform for Chronic Care of Patients with AF after Ablation Procedure- Randomized Study 12/02/2018 05/13/2019 Sciatica of right side 08/11/2017 8 A-fib 06/24/2017 07/06/2017 Lumbar compression fracture 04/15/201703/242 Paronychia of finger 05/14/2016 12/17/2016 Atrial fibrillation, persistent 09/04/2015 12/27/2018 Overview: S/p DCCV Oct 2016 and PV! Jun 23 2017. [id number] risk score: 3. On Flecainide and chronic AC with Rivaroxaban. Plan: Monitor in the CICU Will hold AC for now due to concern for oropharynx bleeding after PVI. Daily ECgs Continue Flecainide F/u EP recs. Situational depression 06/07/2014 1 Vitamin D deficiency 08/17/2013 01/07/2018 Secondary hyperparathyroidism, non-renal 005 01/07/2018 Abdominal pain, left upper quadrant 07/17/2016 Hyperparathyroidism, unspecified 12/22/2006 documented as of this encounter (statuses as of 05/20/2022) [facility] History of Past illness Narrative* Problem Noted Date Resolved Date IRB 18-734: [facility] Using [employer] Platform for Chronic Care of Patients with AF after Ablation Procedure- Randomized Study 12/02/2018 05/13/2019 Sciatica of right side 08/11/2017 8 A-fib 06/24/2017 07/06/2017 Lumbar compression fracture 04/15/201703/24 Paronychia of finger 05/14/2016 12/17/2016 Atrial fibrillation, persistent 09/04/2015 12/27/2018 Overview: S/p DCCV Oct 2016 and PV! Jun 23 2017. [id number] risk score: 3. On Flecainide and chronic AC with Rivaroxaban. Plan: Monitor in the CICU Will hold AC for now due to concern for oropharynx bleeding after PVI. Daily ECgs Continue Flecainide F/u EP recs. Situational depression 06/07/2014 1 Vitamin D deficiency 08/17/2013 01/07/2018 Secondary hyperparathyroidism, non-renal 005 01/07/2018 Abdominal pain, left upper quadrant 07/17/2016 Hyperparathyroidism, unspecified 12/22/2006 documented as of this encounter (statuses as of 06/13/2022) [facility] of Past illness Narrative* Problem Noted Date Resolved Date IRB 18444: [facility]ib Clinic [facility] Using [employer] Platform for Chronic Care of Patients with AF after Ablation Procedure- Randomized Study 12/02/2018 05/13/2019 Sciatica of right side 08/11/2017 8 A-fib 06/24/2017 07/06/2017 Lumbar compression fracture 04/15/201703/24 Paronychia of finger 05/14/2016 12/17/2016 Atrial fibrillation, persistent 09/04/2015 12/27/2018 Overview: S/p DCCV Oct 2016 and PV! Jun 23 2017. [id number] risk score: 3. On Flecainide and chronic AC with Rivaroxaban. Plan: Monitor in the CICU Will hold AC for now due to concern for oropharynx bleeding after PVI. Daily ECgs Continue Flecainide F/u EP recs. Situational depression 06/07/2014 1 Vitamin D deficiency 08/17/2013 01/07/2018 Secondary hyperparathyroidism, non-renal 005 01/07/2018 Abdominal pain, left upper quadrant 07/17/2016 Hyperparathyroidism, unspecified 12/22/2006 documented as of this encounter (statuses as of 08/16/2022) [facility] of Past illness Narrative* Problem Noted Date Resolved Date IRB 444: [facility] Using [employer] Platform for Chronic Care of Patients with AF after Ablation Procedure- Randomized Study 12/02/2018 05/13/2019 Sciatica of right side 08/11/2017 8 A-fib 06/24/2017 07/06/2017 Lumbar compression fracture 04/15/201703/24 Paronychia of finger 05/14/2016 12/17/2016 Atrial fibrillation, persistent 09/04/2015 12/27/2018 Overview: S/p DCCV Oct 2016 and PV! Jun 23 2017. [id number] risk score: 3. On Flecainide and chronic AC with Rivaroxaban. Plan: Monitor in the CICU Will hold AC for now due to concern for oropharynx bleeding after PVI. Daily ECgs Continue Flecainide F/u EP recs. Situational depression 06/07/2014 1 Vitamin D deficiency 08/17/2013 01/07/2018 Secondary hyperparathyroidism, non-renal 005 01/07/2018 Abdominal pain, left upper quadrant 07/17/2016 Hyperparathyroidism, unspecified 12/22/2006 documented as of this encounter (statuses as of 09/10/2022) [facility] of Past illness Narrative* Problem Noted Date Resolved Date IRB 18444: [facility] Clinic [facility] Using [employer] Platform for Chronic Care of Patients with AF after Ablation Procedure- Randomized Study 12/02/2018 05/13/2019 Sciatica of right side 08/11/2017 8 A-fib 06/24/2017 07/06/2017 Lumbar compression fracture 04/15/201703/24 Paronychia of finger 05/14/2016 12/17/2016 Atrial fibrillation, persistent 09/04/2015 12/27/2018 Overview: S/p DCCV Oct 2016 and PV! Jun 23 2017. [id number] risk score: 3. On Flecainide and chronic AC with Rivaroxaban. Plan: Monitor in the CICU Will hold AC for now due to concern for oropharynx bleeding after PVI. Daily ECgs Continue Flecainide F/u EP recs. Situational depression 06/07/2014 1 Vitamin D deficiency 08/17/2013 01/07/2018 Secondary hyperparathyroidism, non-renal 005 01/07/2018 Abdominal pain, left upper quadrant 07/17/2016 Hyperparathyroidism, unspecified 12/22/2006 documented as of this encounter (statuses as of 09/18/2022) [facility] History of Past illness Narrative* Problem Noted Date Resolved Date IRB 18444: [facility] Using [employer] Platform for Chronic Care of Patients with AF after Ablation Procedure- Randomized Study 12/02/2018 05/13/2019 Sciatica of right side 08/11/2017 8 A-fib 06/24/2017 07/06/2017 Lumbar compression fracture 04/15/201703/24 Paronychia of finger 05/14/2016 12/17/2016 Atrial fibrillation, persistent 09/04/2015 12/27/2018 Overview: S/p DCCV Oct 2016 and PV! Jun 23 2017. [id number] risk score: 3. On Flecainide and chronic AC with Rivaroxaban. Plan: Monitor in the CICU Will hold AC for now due to concern for oropharynx bleeding after PVI. Daily ECgs Continue Flecainide F/u EP recs. Situational depression 06/07/2014 1 Vitamin D deficiency 08/17/2013 01/07/2018 Secondary hyperparathyroidism, non-renal 005 01/07/2018 Abdominal pain, left upper quadrant 07/17/2016 Hyperparathyroidism, unspecified 12/22/2006 documented as of this encounter (statuses as of 09/18/2022) [facility] Past illness Narrative* Problem Noted Date Resolved Date IRB 18-846: [facility] Using [employer] Platform for Chronic Care of Patients with AF after Ablation Procedure- Randomized Study 12/02/2018 05/13/2019 Sciatica of right side 08/11/2017 8 A-fib 06/24/2017 07/06/2017 Lumbar compression fracture 04/15/201703/24 Paronychia of finger 05/14/2016 12/17/2016 Atrial fibrillation, persistent 09/04/2015 12/27/2018 Overview: S/p DCCV Oct 2016 and PV! Jun 23 2017. [id number] risk score: 3. On Flecainide and chronic AC with Rivaroxaban. Plan: Monitor in the CICU Will hold AC for now due to concern for oropharynx bleeding after PVI. Daily ECgs Continue Flecainide F/u EP recs. Situational depression 06/07/2014 1 Vitamin D deficiency 08/17/2013 01/07/2018 Secondary hyperparathyroidism, non-renal 005 01/07/2018 Abdominal pain, left upper quadrant 07/17/2016 Hyperparathyroidism, unspecified 12/22/2006 documented as of this encounter (statuses as of 09/19/2022) [facility] Past illness Narrative* Problem Noted Date Resolved Date IRB 18444: [facility] Using [employer] Platform for Chronic Care of Patients with AF after Ablation Procedure- Randomized Study 12/02/2018 05/13/2019 Sciatica of right side 08/11/2017 8 A-fib 06/24/2017 07/06/2017 Lumbar compression fracture 04/15/201703/24 Paronychia of finger 05/14/2016 12/17/2016 Atrial fibrillation, persistent 09/04/2015 12/27/2018 Overview: S/p DCCV Oct 2016 and PV! Jun 23 2017. [id number] risk score: 3. On Flecainide and chronic AC with Rivaroxaban. Plan: Monitor in the CICU Will hold AC for now due to concern for oropharynx bleeding after PVI. Daily ECgs Continue Flecainide F/u EP recs. Situational depression 06/07/2014 Vitamin D deficiency 08/17/2013 01/07/2018 Secondary hyperparathyroidism, non-renal 005 01/07/2018 Abdominal pain, left upper quadrant 07/17/2016 Hyperparathyroidism, unspecified 12/22/2006 documented as of this encounter (statuses as of 10/14/2022) [facility] of Past illness Narrative* Problem Noted Date Resolved Date IRB 18-044: [facility] Using [employer] Platform for Chronic Care of Patients with AF after Ablation Procedure- Randomized Study 12/02/2018 05/13/2019 Sciatica of right side 08/11/2017 8 A-fib 06/24/2017 07/06/2017 Lumbar compression fracture 04/15/201703/24 Paronychia of finger 05/14/2016 12/17/2016 Atrial fibrillation, persistent 09/04/2015 12/27/2018 Overview: S/p DCCV Oct 2016 and PV! Jun 23 2017. [id number] risk score: 3. On Flecainide and chronic AC with Rivaroxaban. Plan: Monitor in the CICU Will hold AC for now due to concern for oropharynx bleeding after PVI. Daily ECgs Continue Flecainide F/u EP recs. Vitamin D deficiency 08/17/2013 01/07/2018 Secondary hyperparathyroidism, non-renal 005 01/07/2018 Abdominal pain, left upper quadrant 07/17/2016 Hyperparathyroidism, unspecified 12/22/2006 documented as of this encounter (statuses as of 10/20/2022) [facility] of Past illness Narrative* Problem Noted Date Resolved Date IRB 18444: AFib Clinic [facility] Using [employer] Platform for Chronic Care of Patients with AF after Ablation Procedure- Randomized Study 12/02/2018 05/13/2019 Sciatica of right side 08/11/2017 8 A-fib 06/24/2017 07/06/2017 Lumbar compression fracture 04/15/201703/24 Paronychia of finger 05/14/2016 12/17/2016 Atrial fibrillation, persistent 09/04/2015 12/27/2018 Overview: S/p DCCV Oct 2016 and PV! Jun 23 2017. [id number] risk score: 3. On Flecainide and chronic AC with Rivaroxaban. Plan: Monitor in the CICU Will hold AC for now due to concern for oropharynx bleeding after PVI. Daily ECgs Continue Flecainide F/u EP recs. Vitamin D deficiency 08/17/2013 01/07/2018 Secondary hyperparathyroidism, non-renal 005 01/07/2018 Abdominal pain, left upper quadrant 07/17/2016 Hyperparathyroidism, unspecified 12/22/2006 documented as of this encounter (statuses as of 10/20/2022) [facility] of Past illness Narrative* Problem Noted Date Resolved Date IRB 18444: [facility]ib Clinic [facility] Using [employer] Platform for Chronic Care of Patients with AF after Ablation Procedure- Randomized Study 12/02/2018 05/13/2019 Sciatica of right side 08/11/2017 8 A-fib 06/24/2017 07/06/2017 Lumbar compression fracture 04/15/201703/24 Paronychia of finger 05/14/2016 12/17/2016 Atrial fibrillation, persistent 09/04/2015 12/27/2018 Overview: S/p DCCV Oct 2016 and PV! Jun 23 2017. [id number] risk score: 3. On Flecainide and chronic AC with Rivaroxaban. Plan: Monitor in the CICU Will hold AC for now due to concern for oropharynx bleeding after PVI. Daily ECgs Continue Flecainide F/u EP recs. Vitamin D deficiency 08/17/2013 01/07/2018 Secondary hyperparathyroidism, non-renal 005 01/07/2018 Abdominal pain, left upper quadrant 07/17/2016 Hyperparathyroidism, unspecified 12/22/2006 documented as of this encounter (statuses as of 10/23/2022) [facility] of Past illness Narrative* Problem Noted Date Resolved Date IRB 18-575: [facility] Using [employer] Platform for Chronic Care of Patients with AF after Ablation Procedure- Randomized Study 12/02/2018 05/13/2019 Sciatica of right side 08/11/2017 8 A-fib 06/24/2017 07/06/2017 Lumbar compression fracture 04/15/201703/24 Paronychia of finger 05/14/2016 12/17/2016 Atrial fibrillation, persistent 09/04/2015 12/27/2018 Overview: S/p DCCV Oct 2016 and PV! Jun 23 2017. [id number] risk score: 3. On Flecainide and chronic AC with Rivaroxaban. Plan: Monitor in the CICU Will hold AC for now due to concern for oropharynx bleeding after PVI. Daily ECgs Continue Flecainide F/u EP recs. Vitamin D deficiency 08/17/2013 01/07/2018 Secondary hyperparathyroidism, non-renal 005 01/07/2018 Abdominal pain, left upper quadrant 07/17/2016 Hyperparathyroidism, unspecified 12/22/2006 documented as of this encounter (statuses as of 10/25/2022) [facility] of Past illness Narrative* Problem Noted Date Resolved Date IRB 18-444: [facility] Using [employer] Platform for Chronic Care of Patients with AF after Ablation Procedure- Randomized Study 12/02/2018 05/13/2019 Sciatica of right side 08/11/2017 8 A-fib 06/24/2017 07/06/2017 Lumbar compression fracture 04/15/20172 Paronychia of finger 05/14/2016 12/17/2016 Atrial fibrillation, persistent 09/04/2015 12/27/2018 Overview: S/p DCCV Oct 2016 and PV! Jun 23 2017. [id number] risk score: 3. On Flecainide and chronic AC with Rivaroxaban. Plan: Monitor in the CICU Will hold AC for now due to concern for oropharynx bleeding after PVI. Daily ECgs Continue Flecainide F/u EP recs. Vitamin D deficiency 08/17/2013 01/07/2018 Secondary hyperparathyroidism, non-renal 005 01/07/2018 Abdominal pain, left upper quadrant 07/17/2016 Hyperparathyroidism, unspecified 12/22/2006 documented as of this encounter (statuses as of 11/27/2022) [facility] of Past illness Narrative* Problem Noted Date Resolved Date IRB 18-444: [facility] Using [employer] Platform for Chronic Care of Patients with AF after Ablation Procedure- Randomized Study 12/02/2018 05/13/2019 Sciatica of right side 08/11/2017 8 A-fib 06/24/2017 07/06/2017 Lumbar compression fracture 04/15/2017 052 Paronychia of finger 05/14/2016 12/17/2016 Atrial fibrillation, persistent 09/04/2015 12/27/2018 Overview: S/p DCCV Oct 2016 and PV! Jun 23 2017. [id number] risk score: 3. On Flecainide and chronic AC with Rivaroxaban. Plan: Monitor in the CICU Will hold AC for now due to concern for oropharynx bleeding after PVI. Daily ECgs Continue Flecainide F/u EP recs. Vitamin D deficiency 08/17/2013 01/07/2018 Secondary hyperparathyroidism, non-renal 005 01/07/2018 Abdominal pain, left upper quadrant 07/17/2016 Hyperparathyroidism, unspecified 12/22/2006 documented as of this encounter (statuses as of 04/24/2023) [facility] Past illness Narrative* Problem Noted Date Diagnosed Date Resolved Date IRB 18444: [facility] Clinic [facility] Using [employer] Platform for Chronic Care of Patients with AF after Ablation Procedure- Randomized Study 12/02/2018 05/13/2019 Sciatica of right side 08/11/201701/07 A-fib 06/24/2017 07/06/2017 Lumbar compression fracture 04/15/2017 04/11/2022 Paronychia of finger 05/14/2016 017 Atrial fibrillation, persistent 09/04/2015 12/27/2018 Overview: S/p DCCV Oct 2016 and PV! Jun 23 2017. [id number] risk score: 3. On Flecainide and chronic AC with Rivaroxaban. Plan: Monitor in the CICU Will hold AC for now due to concern for oropharynx bleeding after PVI. Daily ECgs Continue Flecainide F/u EP recs. Vitamin D deficiency 08/17/2013 018 Secondary hyperparathyroidism, non-renal 09/02/2005 01/07/2018 Abdominal pain, left upper quadrant 07/17/2016 Hyperparathyroidism, unspecified 12/22/2006 documented as of this encounter (statuses as of 09/23/2023) [facility] Past [facility] Narrative* Problem Noted Date Diagnosed Date Resolved Date IRB 18444: [facility] Using [employer] Platform for Chronic Care of Patients with AF after Ablation Procedure- Randomized Study 12/02/2018 05/13/2019 Sciatica of right side 08/11/201701/07 A-fib 06/24/2017 07/06/2017 Lumbar compression fracture 04/15/2017 04/11/2022 Paronychia of finger 05/14/2016 017 Atrial fibrillation, persistent 09/04/2015 12/27/2018 Overview: S/p DCCV Oct 2016 and PV! Jun 23 2017. [id number] risk score: 3. On Flecainide and chronic AC with Rivaroxaban. Plan: Monitor in the CICU Will hold AC for now due to concern for oropharynx bleeding after PVI. Daily ECgs Continue Flecainide F/u EP recs. Vitamin D deficiency 08/17/2013 018 Secondary hyperparathyroidism, non-renal 09/02/2005 01/07/2018 Abdominal pain, left upper quadrant 07/17/2016 Hyperparathyroidism, unspecified 12/22/2006 documented as of this encounter (statuses as of 09/27/2023) [facility] Past [facility] Narrative* Problem Noted Date Diagnosed Date Resolved Date IRB 18-954: [facility] Using [employer] Platform for Chronic Care of Patients with AF after Ablation Procedure- Randomized Study 12/02/2018 05/13/2019 Sciatica of right side 08/11/201701/07 A-fib 06/24/2017 07/06/2017 Lumbar compression fracture 04/15/2017 04/11/2022 Paronychia of finger 05/14/2016 017 Atrial fibrillation, persistent 09/04/2015 12/27/2018 Overview: S/p DCCV Oct 2016 and PV! Jun 23 2017. [id number] risk score: 3. On Flecainide and chronic AC with Rivaroxaban. Plan: Monitor in the CICU Will hold AC for now due to concern for oropharynx bleeding after PVI. Daily ECgs Continue Flecainide F/u EP recs. Vitamin D deficiency 08/17/2013 018 Secondary hyperparathyroidism, non-renal 09/02/2005 01/07/2018 Abdominal pain, left upper quadrant 07/17/2016 Hyperparathyroidism, unspecified 12/22/2006 documented as of this encounter (statuses as of 10/13/2023) [facility] Past [facility] Narrative* Problem Noted Date Diagnosed Date Resolved Date IRB 18-444: [facility] Using [employer] Platform for Chronic Care of Patients with AF after Ablation Procedure- Randomized Study 12/02/2018 05/13/2019 Sciatica of right side 08/11/201701/07 A-fib 06/24/2017 07/06/2017 Lumbar compression fracture 04/15/2017 04/11/2022 Paronychia of finger 05/14/2016 017 Atrial fibrillation, persistent 09/04/2015 12/27/2018 Overview: S/p DCCV Oct 2016 and PV! Jun 23 2017. [id number] risk score: 3. On Flecainide and chronic AC with Rivaroxaban. Plan: Monitor in the CICU Will hold AC for now due to concern for oropharynx bleeding after PVI. Daily ECgs Continue Flecainide F/u EP recs. Vitamin D deficiency 08/17/2013 018 Secondary hyperparathyroidism, non-renal 09/02/2005 01/07/2018 Abdominal pain, left upper quadrant 07/17/2016 Hyperparathyroidism, unspecified 12/22/2006 documented as of this encounter (statuses as of 10/15/2023) [facility] Past [facility] Narrative* Problem Noted Date Diagnosed Date Resolved Date IRB 18-444: [facility] Using [employer] Platform for Chronic Care of Patients with AF after Ablation Procedure- Randomized Study 12/02/2018 05/13/2019 Sciatica of right side 08/11/201701/07 A-fib 06/24/2017 07/06/2017 Lumbar compression fracture 04/15/2017 04/11/2022 Paronychia of finger 05/14/2016 017 Atrial fibrillation, persistent 09/04/2015 12/27/2018 Overview: S/p DCCV Oct 2016 and PV! Jun 23 2017. [id number] risk score: 3. On Flecainide and chronic AC with Rivaroxaban. Plan: Monitor in the CICU Will hold AC for now due to concern for oropharynx bleeding after PVI. Daily ECgs Continue Flecainide F/u EP recs. Vitamin D deficiency 08/17/2013 018 Secondary hyperparathyroidism, non-renal 09/02/2005 01/07/2018 Abdominal pain, left upper quadrant 07/17/2016 Hyperparathyroidism, unspecified 12/22/2006 documented as of this encounter (statuses as of 10/28/2023) [facility] Past [facility] Narrative* Problem Noted Date Diagnosed Date Resolved Date IRB 18-502: [facility] Using [employer] Platform for Chronic Care of Patients with AF after Ablation Procedure- Randomized Study 12/02/2018 05/13/2019 Sciatica of right side 08/11/201701/07 A-fib 06/24/2017 07/06/2017 Lumbar compression fracture 04/15/2017 04/11/2022 Paronychia of finger 05/14/2016 017 Atrial fibrillation, persistent 09/04/2015 12/27/2018 Overview: S/p DCCV Oct 2016 and PV! Jun 23 2017. [id number] risk score: 3. On Flecainide and chronic AC with Rivaroxaban. Plan: Monitor in the CICU Will hold AC for now due to concern for oropharynx bleeding after PVI. Daily ECgs Continue Flecainide F/u EP recs. Vitamin D deficiency 08/17/2013 018 Secondary hyperparathyroidism, non-renal 09/02/2005 01/07/2018 Abdominal pain, left upper quadrant 07/17/2016 Hyperparathyroidism, unspecified 12/22/2006 documented as of this encounter (statuses as of 10/29/2023) [facility] Trochanteric bursitis of right hip- Primary Enthesopathy of hip region [facility] Pain in right hip Pain in joint, pelvic region and thigh [facility] Medicare annual wellness visit, subsequent- Primary Routine general medical examination at a health care facility Essential hypertension Unspecified essential hypertension Mixed hyperglyceridemia Hyperchylomicronemia Acquired hypothyroidism Unspecified hypothyroidism Hyperparathyroidism (HCC) Hyperparathyroidism, unspecified Paroxysmal atrial fibrillation (HCC) Atrial fibrillation GERD without esophagitis Esophageal reflux Low serum vitamin B12 Obesity, Class II, BMI 35-39.9 Obesity, unspecified Hyperuricemia Other abnormal blood chemistry Obstructive sleep apnea syndrome Obstructive sleep apnea (adult) (pediatric) Lumbar degenerative disc disease Degeneration of lumbar or lumbosacral intervertebral disc Hyperlipidemia, mixed Mixed hyperlipidemia Thyroid nodule Nontoxic uninodular goiter Living will in place Advance directive discussed with patient Other specified counseling Multiple lung nodules on CT 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 Foot pain, bilateral Pain in limb RUQ pain Abdominal pain, right upper quadrant Closed fracture of one rib of right side with routine healing, subsequent encounter [facility] 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 RUQ pain Abdominal pain, right upper quadrant [facility] 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 Lung nodules Other nonspecific abnormal finding of lung field [facility] Diagnosis Multiple lung nodules on CT- Primary Obstructive sleep apnea syndrome Obstructive sleep apnea (adult) (pediatric) Obesity, Class II, BMI 35-39.9 Obesity, unspecified Pulmonary hypertension (HCC) Other chronic pulmonary heart diseases [facility] Diagnosis Neuropathy- Primary Mononeuritis of unspecified site Foot pain, bilateral Pain in limb [facility] Diagnosis Bilateral foot pain Pain in limb [facility] Diagnosis Bruise- Primary Contusion of unspecified site [facility] Diagnosis At increased risk of exposure to COVID-19 virus- Primary Acute cough [facility] Diagnosis Essential hypertension- Primary Unspecified essential hypertension Hyperlipidemia, mixed Mixed hyperlipidemia Acquired hypothyroidism Unspecified hypothyroidism Hyperparathyroidism (HCC) Hyperparathyroidism, unspecified Paroxysmal atrial fibrillation (HCC) Atrial fibrillation Obstructive sleep apnea syndrome Obstructive sleep apnea (adult) (pediatric) Obesity, Class II, BMI 35-39.9 Obesity, unspecified Low serum vitamin B12 Hyperuricemia Other abnormal blood chemistry Gilbert syndrome Disorders of bilirubin excretion Multiple lung nodules on CT Limping with cause localized to lower leg Situational depression Adjustment disorder with depressed mood [facility] Diagnosis Left leg pain- Primary Pain in limb [facility] Diagnosis Trochanteric bursitis of left hip- Primary Enthesopathy of hip region Limping with cause localized to lower leg [facility] Medicare annual wellness visit, subsequent- Primary Routine general medical examination at a health care facility Essential hypertension Unspecified essential hypertension Hyperlipidemia, mixed Mixed hyperlipidemia Acquired hypothyroidism Unspecified hypothyroidism GERD without esophagitis Esophageal reflux Thyroid nodule Nontoxic uninodular goiter Hyperparathyroidism (HCC) Hyperparathyroidism, unspecified Paroxysmal atrial fibrillation (HCC) Atrial fibrillation Situational depression Adjustment disorder with depressed mood Hyperuricemia Other abnormal blood chemistry Obesity, Class II, BMI 35-39.9 Obesity, unspecified Obstructive sleep apnea syndrome Obstructive sleep apnea (adult) (pediatric) Low serum vitamin B12 [facility] Diagnosis Lung nodules- Primary Other nonspecific abnormal finding of lung field ROZ on CPAP Obstructive sleep apnea (adult) (pediatric) Pulmonary hypertension (HCC) Other chronic pulmonary heart diseases Morbid obesity (HCC) Morbid obesity [facility] Diagnosis Encounter for screening mammogram for malignant neoplasm of breast- Primary Other screening mammogram [facility] Diagnosis Encounter for screening mammogram for malignant neoplasm of breast Other screening mammogram [facility] Diagnosis Hand pain, right- Primary Pain in limb Closed nondisplaced fracture of phalanx of right little finger, unspecified phalanx, initial encounter [facility] Diagnosis Closed displaced fracture of phalanx of right little finger with routine healing, unspecified phalanx, subsequent encounter- Primary [facility] Diagnosis Encounter for screening mammogram for malignant neoplasm of breast Other screening mammogram [facility] Diagnosis Encounter for gynecological examination without abnormal finding- Primary Routine gynecological examination Encounter for screening mammogram for breast cancer Osteopenia of left femoral neck [facility] Diagnosis Closed displaced fracture of phalanx of right little finger with routine healing, unspecified phalanx, subsequent encounter documented in this encounter [facility] for referral (narrative)* Diagnostic Procedure Only (Routine) - Closed Specialty Diagnoses / Procedures Referred By Syeda t Referred To Contact XR IMAGING Diagnoses Pain in right hip Procedures XR PELVIS 1V AP RADIOLOGIC EXAMINATION PELVIS 1/2 VIEWS Aiden Lees APRN.ASSOCIATE TECHNICIAN [address] [facility], [address] [place] [address] Xr Imaging Referral ID Status Reason Start Date Expiration Date V isits Requested Visits Authorized [id number] Closed Auto-Generate d Referral 02/11/2022 03/09/2023 1 1 [facility] for referral (narrative)* Diagnostic Procedure Only (Routine) - Closed Specialty Diagnoses / Procedures Referred By Contac t Referred To Contact US IMAGING Diagnoses Bilateral renal cysts RUQ pain Procedures US KIDNEY/BLADDER US RETROPERITONEAL REAL TIME W/IMAGE COMPLETE Cholo Soriano MD [address] [place] [address] Us Imaging Referral ID Status Reason Start Date Expiration Date V isits Requested Visits Authorized [id number] Closed Auto-Generate d Referral 04/11/2022 05/11/2023 1 1 T [facility] for referral (narrative)* Diagnostic Procedure Only (Routine) - Closed Specialty Diagnoses / Procedures Referred By Contac t Referred To Contact XR IMAGING Diagnoses Bilateral foot pain Procedures XR FOOT GENERAL 3V AP/LAT/OBL BILATERAL RADEX FOOT COMPLETE MINIMUM 3 VIEWS Fabio Briscoe [address] [place] [address] Xr Imaging Referral ID Status Reason Start Date Expiration Date V isits Requested Visits Authorized [id number] Closed Auto-Generate d Referral 05/15/2022 06/14/2023 1 1 [facility] ([facility]ative[facility] Outpatient Procedure (Routine) - Authorized Specialty Diagnoses / Procedures Referred By Contac t Referred To [facility] Diagnoses Left leg pain Procedures US LEG VEIN DVT UNL VAS LAB DUP-SCAN XTR VEINS UNILATERAL/LIMITED STUDY Magda Simon MD [address] [place] [address] [facility] [place] [address] [place] [address] Referral ID Status Reason Start Date Expiration Date Visits Requested Visits Authorized [id number] Authorized Auto-Generat ed Referral 2 10/20/2023 1 1 [facility] for referral (narrative)* Diagnostic Procedure Only (Routine) - Authorized Specialty Diagnoses / Procedures Referred By Syeda paiz Referred To Contact BR IMAGING Diagnoses Encounter for screening mammogram for malignant neoplasm of breast Procedures BEBETO SCREENING W KAI SCREENING DIGITAL BREAST TOMOSYNTHESIS BI SCREENING MAMMOGRAPHY BI 2-VIEW BREAST INC CAD Magda Simon MD [address] [place] [address] [facility] [address] [place] [address] Referral ID Status Reason Start Date Expiration Date Visits Requested Visits Authorized [id number] Authorized Auto-Generat ed Referral 3 10/08/2024 1 1 [facility] for referral (narrative)* Diagnostic Procedure Only (Routine) - Closed Specialty Diagnoses / Procedures Referred By Syeda paiz Referred To Contact BR IMAGING Diagnoses Encounter for screening mammogram for malignant neoplasm of breast Procedures BEBETO SCREENING W KAI SCREENING BREAST DGTL KAI UNI/BILAT ADD ON SCREENING MAMMOGRAPHY BI 2-VIEW BREAST INC CAD Magda Simon MD [address] [place] [address] [facility] [address] [place] [address] Referral ID Status Reason Start Date Expiration Date V isits Requested Visits Authorized [id number] Closed Auto-Generate d Referral 10/10/2021 11/09/2022 1 1 [facility] for referral (narrative)* Diagnostic Procedure Only (Urgent) - Closed Specialty Diagnoses / Procedures Referred By Contac t Referred To Contact XR IMAGING Diagnoses Hand pain, right Procedures XR HAND GENERAL 3V PA/LAT/OBL RIGHT RADEX HAND MINIMUM 3 VIEWS Alta Moser, ROSEND[address] [place] [address] [place] [address] Referral ID Status Reason Start Date Expiration Date V isits Requested Visits Authorized [id number] Closed Auto-Generate d Referral 10/08/2023 11/06/2024 1 1 [facility] for referral (narrative)* Diagnostic Procedure Only (Routine) - Pending Review Specialty Diagnoses / Procedures Referred By Wayneac t Referred To Contact XR IMAGING Diagnoses Osteopenia of left femoral neck Procedures BMD BODY COMPOSITION STUDY UNLISTED DIAGNOSTIC RADIOGRAPHIC PROCEDURE Magda Siomn MD [address] [place] [address] [place] [address] Referral ID Status Reason Start Date Expiration Date Visits Requested Visits Authorized [id number] Pending Review Auto-Generat ed Referral 3 11/11/2024 1 1 * Diagnostic Procedure Only (Routine) - Authorized Specialty Diagnoses / Procedures Referred By Syeda t Referred To Contact BR IMAGING Diagnoses Encounter for screening mammogram for breast cancer Procedures BEBETO SCREENING W KAI SCREENING DIGITAL BREAST TOMOSYNTHESIS BI SCREENING MAMMOGRAPHY BI 2-VIEW BREAST INC CAD Magda Simon MD [address] [place] [address] [facility] [address] [place] [address] Referral ID Status Reason Start Date Expiration Date Visits Requested Visits Authorized [id number] Authorized Auto-Generat ed Referral 3 11/11/2024 1 1 [facility] for visit Narrative* Diagnostic Procedure Only (Routine) - Closed Specialty Diagnoses / Procedures Referred By Contac t Referred To Contact XR IMAGING Diagnoses Pain in right hip Procedures XR PELVIS 1V AP RADIOLOGIC EXAMINATION PELVIS 1/2 VIEWS Aiden Lees APRN.ASSOCIATE TECHNICIAN [address] [facility], [address] [place] [address] Xr Imaging Referral ID Status Reason Start Date Expiration Date V isits Requested Visits Authorized [id number] Closed Auto-Generate d Referral 02/11/2022 03/09/2023 1 1 [facility] for visit Narrative* Diagnostic Procedure Only (Routine) - Closed Specialty Diagnoses / Procedures Referred By Contac t Referred To Contact US IMAGING Diagnoses Bilateral renal cysts RUQ pain Procedures US KIDNEY/BLADDER US RETROPERITONEAL REAL TIME W/IMAGE COMPLETE Cholo Soriano MD [address] [place] [address] Us Imaging Referral ID Status Reason Start Date Expiration Date V isits Requested Visits Authorized [id number] Closed Auto-Generate d Referral 04/11/2022 05/11/2023 1 1 [facility] for visit Narrative* Diagnostic Procedure Only (Routine) - Closed Specialty Diagnoses / Procedures Referred By Contac t Referred To Contact XR IMAGING Diagnoses Bilateral foot pain Procedures XR FOOT GENERAL 3V AP/LAT/OBL BILATERAL RADEX FOOT COMPLETE MINIMUM 3 VIEWS Fabio Briscoe [address] [place] [address] Xr Imaging Referral ID Status Reason Start Date Expiration Date V isits Requested Visits Authorized [id number] Closed Auto-Generate d Referral 05/15/2022 06/14/2023 1 1 [facility] for visit Narrative* Diagnostic Procedure Only (Routine) - Closed Specialty Diagnoses / Procedures Referred By Contac t Referred To Contact BR IMAGING Diagnoses Encounter for screening mammogram for malignant neoplasm of breast Procedures BEBETO SCREENING W KAI SCREENING BREAST DGTL KAI UNI/BILAT ADD ON SCREENING MAMMOGRAPHY BI 2-VIEW BREAST INC CAD Magda Simon MD [address] [place] [address] [facility] [address] [place] [address] Referral ID Status Reason Start Date Expiration Date V isits Requested Visits Authorized [id number] Closed Auto-Generate d Referral 10/10/2021 11/09/2022 1 1 [facility] for visit Narrative* Diagnostic Procedure Only (Routine) - Closed Specialty Diagnoses / Procedures Referred By Contac t Referred To Contact BR IMAGING Diagnoses Encounter for screening mammogram for malignant neoplasm of breast Procedures BEBETO SCREENING W KAI SCREENING DIGITAL BREAST TOMOSYNTHESIS BI SCREENING MAMMOGRAPHY BI 2-VIEW BREAST INC CAD Magda Simon MD [address] [place] [address] [facility] [address] [place] [address] Referral ID Status Reason Start Date Expiration Date V isits Requested Visits Authorized [id number] Closed Auto-Generate d Referral 09/09/2023 10/08/2024 1 1 [facility] for visit Narrative* Diagnostic Procedure Only (Routine) - Closed Specialty Diagnoses / Procedures Referred By Contac t Referred To Contact XR IMAGING Diagnoses Closed displaced fracture of phalanx of right little finger with routine healing, unspecified phalanx, subsequent encounter Procedures XR HAND GENERAL 3V PA/LAT/OBL RIGHT RADEX HAND MINIMUM 3 VIEWS Aryan Torres V, DO [address] [place] [address] [place] [address] Referral ID Status Reason Start Date Expiration Date V isits Requested Visits Authorized [id number] Closed Auto-Generate d Referral 10/26/2023 11/24/2024 1 1 [facility] Advance Directives No Advanced Directives Records FoundDocuments on File Type Date Recorded Patient Slip Laster Expl anation Advance Directive(s) 04/11/2019 7:13 AM Advance Directive(s) 03/21/2019 10:55 AM Advance Directive(s) 08/17/2018 5:58 AM Advance Directive(s) 08/30/2017 4:57 PM Advance Directive(s) 08/11/2017 8:14 AM Advance Directive(s) 06/10/2017 10:11 AM Advance Directive(s) 11/12/2016 3:28 PM Documents on File Type Date Recorded Patient Slip Laster Expl anation Advance Directive(s) 04/11/2019 7:13 AM Advance Directive(s) 03/21/2019 10:55 AM Advance Directive(s) 08/17/2018 5:58 AM Advance Directive(s) 08/30/2017 4:57 PM Advance Directive(s) 08/11/2017 8:14 AM Advance Directive(s) 06/10/2017 10:11 AM Advance Directive(s) 11/12/2016 3:28 PM Summary Purpose Family History No Family History Records FoundNo Family History Records Found Reason for Referral Specialty Diagnoses / Procedures Referred By Contac t Referred To Contact Podiatry Diagnoses Foot pain, bilateral Procedures CONSULT TO PODIATRY OFFICE/OUTPATIENT [facility] 60-[place] [address] [place] [address] Referral ID Status Reason Start Date Expiration Date Visits Requested Visits Authorized [id number] Authorized PCP Requested Referral 04/11/2022 04/11/2023 1 1 Specialty Diagnoses / Procedures Referred By Contac t Referred To Contact US IMAGING Diagnoses Bilateral renal cysts RUQ pain Procedures US KIDNEY/BLADDER US RETROPERITONEAL REAL [place] W[place] [address] [place] [address] Us Imaging Referral ID Status Reason Start Date Expiration Date Visits Requested Visits Authorized [id number] Authorized Auto-Generat ed Referral 04/11/2022 05/11/2023 1 1 Specialty Diagnoses / Procedures Referred By Contac t Referred To Contact CT IMAGING Diagnoses Lung nodules Procedures CT CHEST WO IVCON CAT SCAN OF CHEST Natalia Wood MD [address] [place] [address] Ct Imaging Referral ID Status Reason Start Date Expiration Date V isits Requested Visits Authorized [id number] Closed Auto-Generate d Referral 11/04/2021 12/04/2022 1 1 Specialty Diagnoses / Procedures Referred By Contac t Referred To Contact Orthopedics Diagnoses Limping with cause localized to lower leg Procedures CONSULT TO ORTHOPAEDICS OFFICE/OUTPATIENT [facility] 60-74 MINUTES Cholo Soriano MD [address] [place] [address] Referral ID Status Reason Start Date Expiration Date Visits Requested Visits Authorized [id number] Authorized PCP Requested Referral 2 10/15/2023 1 1 Specialty Diagnoses / Procedures Referred By Contac t Referred To Contact Physical Therapy Diagnoses Trochanteric bursitis of left hip Procedures CONSULT TO PHYSICAL THERAPY Eber Moore MD [address] [address] Referral ID Status Reason Start Date Expiration Date Visits Requested Visits Authorized [id number] Ref Not Required PCP Requested Referral 11/27/2022 11/27/2023 99 99 Specialty Diagnoses / Procedures Referred By Contac t Referred To Contact CT IMAGING Diagnoses Lung nodules Procedures CT CHEST WO IVCON DIAGNOSTIC COMPUTED TOMOGRAPHY THORAX W/O PAULT Natalia Wood MD [address] [place] [address] Ct Imaging Referral ID Status Reason Start Date Expiration Date Visits Requested Visits Authorized [id number] Pending Review Auto-Generat ed Referral 05/19/2024 06/17/2024 1 1 Health Concerns Infection Onset Date Last Indicated Resolved Time COVID-19 Rule-Out 09/18/2022 09/18/2022 Infection Onset Date Last Indicated Resolved Time COVID-19 Rule-Out 09/18/2022 09/18/2022 09/19/2022 3:05 AM EDT COVID-19 Confirmed 09/18/2022 09/18/2022 Additional Source Comments Source Comments (unrecognize d section and content) In the event this informatio n is protected by the Federal Confidentiality of Alcohol and Drug Abuse Patient Records regulations: The Federal rules restrict any use of the information to criminally investigate or prosecute any alcohol or drug abuse patient.[facility] the event this information is protected by the Federal Confidentiality of Alcohol and Drug Abuse Patient Records regulations: The Federal rules restrict any use of the information to criminally investigate or prosecute any alcohol or drug abuse patient.[facility] the event this information is protected by the Federal Confidentiality of Alcohol and Drug Abuse Patient Records regulations: The Federal rules restrict any use of the information to criminally investigate or prosecute any alcohol or drug abuse patient.[facility] the event this information is protected by the Federal Confidentiality of Alcohol and Drug Abuse Patient Records regulations: The Federal rules restrict any use of the information to criminally investigate or prosecute any alcohol or drug abuse patient.[facility] the event this information is protected by the Federal Confidentiality of Alcohol and Drug Abuse Patient Records regulations: The Federal rules restrict any use of the information to criminally investigate or prosecute any alcohol or drug abuse patient.[facility] the event this information is protected by the Federal Confidentiality of Alcohol and Drug Abuse Patient Records regulations: The Federal rules restrict any use of the information to criminally investigate or prosecute any alcohol or drug abuse patient.[facility] the event this information is protected by the Federal Confidentiality of Alcohol and Drug Abuse Patient Records regulations: The Federal rules restrict any use of the information to criminally investigate or prosecute any alcohol or drug abuse patient.[facility] the event this information is protected by the Federal Confidentiality of Alcohol and Drug Abuse Patient Records regulations: The Federal rules restrict any use of the information to criminally investigate or prosecute any alcohol or drug abuse patient.[facility] the event this information is protected by the Federal Confidentiality of Alcohol and Drug Abuse Patient Records regulations: The Federal rules restrict any use of the information to criminally investigate or prosecute any alcohol or drug abuse patient.[facility] the event this information is protected by the Federal Confidentiality of Alcohol and Drug Abuse Patient Records regulations: The Federal rules restrict any use of the information to criminally investigate or prosecute any alcohol or drug abuse patient.[facility] the event this information is protected by the Federal Confidentiality of Alcohol and Drug Abuse Patient Records regulations: The Federal rules restrict any use of the information to criminally investigate or prosecute any alcohol or drug abuse patient.[facility] System[facility] the event this information is protected by the Federal Confidentiality of Alcohol and Drug Abuse Patient Records regulations: The Federal rules restrict any use of the information to criminally investigate or prosecute any alcohol or drug abuse patient.[facility] System[facility] the event this information is protected by the Federal Confidentiality of Alcohol and Drug Abuse Patient Records regulations: The Federal rules restrict any use of the information to criminally investigate or prosecute any alcohol or drug abuse patient.[facility] the event this information is protected by the Federal Confidentiality of Alcohol and Drug Abuse Patient Records regulations: The Federal rules restrict any use of the information to criminally investigate or prosecute any alcohol or drug abuse patient.[facility] System[facility] the event this information is protected by the Federal Confidentiality of Alcohol and Drug Abuse Patient Records regulations: The Federal rules restrict any use of the information to criminally investigate or prosecute any alcohol or drug abuse patient.[facility] System[facility] the event this information is protected by the Federal Confidentiality of Alcohol and Drug Abuse Patient Records regulations: The Federal rules restrict any use of the information to criminally investigate or prosecute any alcohol or drug abuse patient.[facility] System[facility] the event this information is protected by the Federal Confidentiality of Alcohol and Drug Abuse Patient Records regulations: The Federal rules restrict any use of the information to criminally investigate or prosecute any alcohol or drug abuse patient.[facility] System[facility] the event this information is protected by the Federal Confidentiality of Alcohol and Drug Abuse Patient Records regulations: The Federal rules restrict any use of the information to criminally investigate or prosecute any alcohol or drug abuse patient.[facility] System[facility] the event this information is protected by the Federal Confidentiality of Alcohol and Drug Abuse Patient Records regulations: The Federal rules restrict any use of the information to criminally investigate or prosecute any alcohol or drug abuse patient.[facility] SystemIn the event this information is protected by the Federal Confidentiality of Alcohol and Drug Abuse Patient Records regulations: The Federal rules restrict any use of the information to criminally investigate or prosecute any alcohol or drug abuse patient.[facility] System[facility] the event this information is protected by the Federal Confidentiality of Alcohol and Drug Abuse Patient Records regulations: The Federal rules restrict any use of the information to criminally investigate or prosecute any alcohol or drug abuse patient.[facility] System[facility] the event this information is protected by the Federal Confidentiality of Alcohol and Drug Abuse Patient Records regulations: The Federal rules restrict any use of the information to criminally investigate or prosecute any alcohol or drug abuse patient.[facility] System[facility] the event this information is protected by the Federal Confidentiality of Alcohol and Drug Abuse Patient Records regulations: The Federal rules restrict any use of the information to criminally investigate or prosecute any alcohol or drug abuse patient.[facility] System[facility] the event this information is protected by the Federal Confidentiality of Alcohol and Drug Abuse Patient Records regulations: The Federal rules restrict any use of the information to criminally investigate or prosecute any alcohol or drug abuse patient.[facility] System[facility] the event this information is protected by the Federal Confidentiality of Alcohol and Drug Abuse Patient Records regulations: The Federal rules restrict any use of the information to criminally investigate or prosecute any alcohol or drug abuse patient.[facility] System[facility] the event this information is protected by the Federal Confidentiality of Alcohol and Drug Abuse Patient Records regulations: The Federal rules restrict any use of the information to criminally investigate or prosecute any alcohol or drug abuse patient.[facility] SystemIn the event this information is protected by the Federal Confidentiality of Alcohol and Drug Abuse Patient Records regulations: The Federal rules restrict any use of the information to criminally investigate or prosecute any alcohol or drug abuse patient.[facility] SystemIn the event this information is protected by the Federal Confidentiality of Alcohol and Drug Abuse Patient Records regulations: The Federal rules restrict any use of the information to criminally investigate or prosecute any alcohol or drug abuse patient.[facility] SystemIn the event this information is protected by the Federal Confidentiality of Alcohol and Drug Abuse Patient Records regulations: The Federal rules restrict any use of the information to criminally investigate or prosecute any alcohol or drug abuse patient.[facility] SystemIn the event this information is protected by the Federal Confidentiality of Alcohol and Drug Abuse Patient Records regulations: The Federal rules restrict any use of the information to criminally investigate or prosecute any alcohol or drug abuse patient.[facility] SystemIn the event this information is protected by the Federal Confidentiality of Alcohol and Drug Abuse Patient Records regulations: The Federal rules restrict any use of the information to criminally investigate or prosecute any alcohol or drug abuse patient.[facility] SystemIn the event this information is protected by the Federal Confidentiality of Alcohol and Drug Abuse Patient Records regulations: The Federal rules restrict any use of the information to criminally investigate or prosecute any alcohol or drug abuse patient.[facility] SystemIn the event this information is protected by the Federal Confidentiality of Alcohol and Drug Abuse Patient Records regulations: The Federal rules restrict any use of the information to criminally investigate or prosecute any alcohol or drug abuse patient.[facility] SystemIn the event this information is protected by the Federal Confidentiality of Alcohol and Drug Abuse Patient Records regulations: The Federal rules restrict any use of the information to criminally investigate or prosecute any alcohol or drug abuse patient.[facility] SystemIn the event this information is protected by the Federal Confidentiality of Alcohol and Drug Abuse Patient Records regulations: The Federal rules restrict any use of the information to criminally investigate or prosecute any alcohol or drug abuse patient.[facility] SystemIn the event this information is protected by the Federal Confidentiality of Alcohol and Drug Abuse Patient Records regulations: The Federal rules restrict any use of the information to criminally investigate or prosecute any alcohol or drug abuse patient.[facility] SystemIn the event this information is protected by the Federal Confidentiality of Alcohol and Drug Abuse Patient Records regulations: The Federal rules restrict any use of the information to criminally investigate or prosecute any alcohol or drug abuse patient.[facility] SystemIn the event this information is protected by the Federal Confidentiality of Alcohol and Drug Abuse Patient Records regulations: The Federal rules restrict any use of the information to criminally investigate or prosecute any alcohol or drug abuse patient.[facility] SystemIn the event this information is protected by the Federal Confidentiality of Alcohol and Drug Abuse Patient Records regulations: The Federal rules restrict any use of the information to criminally investigate or prosecute any alcohol or drug abuse patient.[facility] SystemIn the event this information is protected by the Federal Confidentiality of Alcohol and Drug Abuse Patient Records regulations: The Federal rules restrict any use of the information to criminally investigate or prosecute any alcohol or drug abuse patient.[facility] SystemIn the event this information is protected by the Federal Confidentiality of Alcohol and Drug Abuse Patient Records regulations: The Federal rules restrict any use of the information to criminally investigate or prosecute any alcohol or drug abuse patient.[facility] SystemIn the event this information is protected by the Federal Confidentiality of Alcohol and Drug Abuse Patient Records regulations: The Federal rules restrict any use of the information to criminally investigate or prosecute any alcohol or drug abuse patient.[facility] SystemIn the event this information is protected by the Federal Confidentiality of Alcohol and Drug Abuse Patient Records regulations: The Federal rules restrict any use of the information to criminally investigate or prosecute any alcohol or drug abuse patient.[facility] Reason for Visit (unrecogniz ed section and content) Reason Comments Results Reason Comments Medicare Wellness Exam Reason Onset Date Comments Refill Request 04/28/[address] Specialty Diagnoses / Procedures Referred By Contac t Referred To Contact CT IMAGING Diagnoses Lung nodules Procedures CT CHEST WO IVCON CAT SCAN OF CHEST Natalia Wood MD [address] [place] [address] Ct Imaging Referral ID Status Reason Start Date Expiration Date V isits Requested Visits Authorized [id number] Closed Auto-Generate d Referral 11/04/2021 12/04/2022 1 1 Reason Comments Established Patient Reason Comments New Numbness Specialty Diagnoses / Procedures Referred By Contac t Referred To Contact Podiatry Diagnoses Foot pain, bilateral Procedures CONSULT TO PODIATRY OFFICE/OUTPATIENT [facility] 60-74 MINUTES Cholo Soriano MD [address] [place] [address] Referral ID Status Reason Start Date Expiration Date V isits Requested Visits Authorized [id number] Closed PCP Requested Referral 04/11/2022 04/11/2023 1 1 Reason Onset Date Comments Refill Request 06/13/2022 Reason Comments Pain (LT) thigh injury pa in rated 2, x1 day. Reason Comments Patient Update Reason Comments Sore Throat Cough, chills x 1 da y Reason Comments Recheck 6 month follow up/te st results Reason Comments breast exam Reason Onset Date Comments Refill Request 11/25/2022 Reason Comments Established Patient Specialty Diagnoses / Procedures Referred By Contac t Referred To Contact Orthopedics Diagnoses Limping with cause localized to lower leg Procedures CONSULT TO ORTHOPAEDICS OFFICE/OUTPATIENT [facility] 60-74 MINUTES Cholo Soriano MD [address] [place] [address] Referral ID Status Reason Start Date Expiration Date V isits Requested Visits Authorized [id number] Closed PCP Requested Referral 10/15/2022 10/15/2023 1 1 Reason Comments Medicare Wellness Exam Reason Comments Established Patient Reports that she has a intermittent cough. Nodule Reason Onset Date Comments Refill Request 05/20/2023 Reason Comments Outside Derm Reason Comments ext document Cardio Reason Comments Hand Injury Right hand 5 th digi t, bruising down hand x 10 days Reason Comments right 5th finger fracture Reason Comments Breast Problem Reason Comments Outside Dermatology Care Teams (unrecognized sec tion and content) Complaint Manager Relationship Specialty Start Date End Date Cholo Soriano MD [address] [place] [address] PCP - General Family Practice 04/03/21 Darek, Akhil S [address] [place] [address] Referring Cardiology 12/02/18 Chaparro Kothari MD [address] [place] [address] Primary Staff Physician Cardiology 02/08/19 Complaint Manager Relationship Specialty Start Date End Date Cholo Soriano MD [address] [place] [address] PCP - General Family Practice 04/03/21 Darek, Poplar S [address] [place] [address] Referring Cardiology 12/02/18 Chaparro Kothari MD [address] [place] [address] Primary Staff Physician Cardiology 02/08/19 Complaint Manager Relationship Specialty Start Date End Date Cholo Soriano MD [address] [place] [address] PCP - General Family Practice 04/03/21 Darek, Akhil S [address] [place] [address] Referring Cardiology 12/02/18 Chaparro Kothari MD [address] [place] [address] Primary Staff Physician Cardiology 02/08/19 Complaint Manager Relationship Specialty Start Date End Date Cholo Soriano MD [address] [place] [address] PCP - General Family Practice 04/03/21 Darek, Poplar S [address] [address] Referring Cardiology 12/02/18 Chaparro Kothari MD [address] [place] [address] Primary Staff Physician Cardiology 02/08/19 Complaint Manager Relationship Specialty Start Date End Date Cholo Soriano MD [address] [place] [address] PCP - General Family Practice 04/03/21 Darek, Poplar S [address] [address] Referring Cardiology 12/02/18 Chaparro Kothari MD [address] [place] [address] Primary Staff Physician Cardiology 02/08/19 Complaint Manager Relationship Specialty Start Date End Date Cholo Soriano MD [address] [place] [address] PCP - General Family Practice 04/03/21 Darek, Poplar S [address] [address] Referring Cardiology 12/02/18 Chaparro Kothari MD [address] [place] [address] Primary Staff Physician Cardiology 02/08/19 Complaint Manager Relationship Specialty Start Date End Date Cholo Soriano MD [address] [place] [address] PCP - General Family Practice 04/03/21 Darek, Akhil S [address] [address] Referring Cardiology 12/02/18 Chaparro Kothari MD [address] [facility] [place] [address] Primary Staff Physician Cardiology 02/08/19 Complaint Manager Relationship Specialty Start Date End Date Cholo Soriano MD [address] [place] [address] PCP - General Family Practice 04/03/21 Darek, Akhil S [address] [address] Referring Cardiology 12/02/18 Chaparro Kothari MD [address] [place] [address] Primary Staff Physician Cardiology 02/08/19 Complaint Manager Relationship Specialty Start Date End Date Cholo Soriano MD [address] [place] [address] PCP - General Family Medicine 04/03/21 Darek, Akhil S [address] [address] Referring Cardiology 12/02/18 Chaparro Kothari MD [address] [place] [address] Primary Staff Physician Cardiology 02/08/19 Complaint Manager Relationship Specialty Start Date End Date Cholo Soriano MD [address] [place] [address] PCP - General Family Medicine 04/03/21 Darek, Akhil S [address] [place] [address] Referring Cardiology 12/02/18 Chaparro Kothari MD [address] [place] [address] Primary Staff Physician Cardiology 02/08/19 Complaint Manager Relationship Specialty Start Date End Date Cholo Soriano MD [address] [place] [address] PCP - General Family Medicine 04/03/21 Darek, Poplar S [address] [address] Referring Cardiology 12/02/18 Chaparro Kothari MD [address] [place] [address] Primary Staff Physician Cardiology 02/08/19 Complaint Manager Relationship Specialty Start Date End Date Cholo Soriano MD [address] [place] [address] PCP - General Family Medicine 04/03/21 Darek, Poplar S [address] [place] [address] Referring Cardiology 12/02/18 Chaparro Kothari MD [address] [place] [address] Primary Staff Physician Cardiology 02/08/19 Complaint Manager Relationship Specialty Start Date End Date Cholo Soriano MD [address] [place] [address] PCP - General Family Medicine 04/03/21 Darek, Akhil S [address] [place] [address] Referring Cardiology 12/02/18 Chaparro Kothari MD [address] [place] [address] Primary Staff Physician Cardiology 02/08/19 Complaint Manager Relationship Specialty Start Date End Date Cholo Soriano MD [address] [place] [address] PCP - General Family Medicine 04/03/21 Darek, Akhil S [address] [place] [address] Referring Cardiology 12/02/18 Chaparro Kothari MD [address] [place] [address] Primary Staff Physician Cardiology 02/08/19 Complaint Manager Relationship Specialty Start Date End Date Cholo Soriano MD [address] [place] [address] PCP - General Family Medicine 04/03/21 Darek, Poplar S [address] [address] Referring Cardiology 12/02/18 Chaparro Kothari MD [address] [place] [address] Primary Staff Physician Cardiology 02/08/19 Complaint Manager Relationship Specialty Start Date End Date Cholo Soriano MD [address] [place] [address] PCP - General Family Medicine 04/03/21 Darek, Poplar S [address] [address] Referring Cardiology 12/02/18 Chaparro Kothari MD [address] [place] [address] Primary Staff Physician Cardiology 02/08/19 Complaint Manager Relationship Specialty Start Date End Date Cholo Soriano MD [address] [facility] [address] PCP - General Family Medicine 04/03/21 Darek, Akhil S [address] [place] [address] Referring Cardiology 12/02/18 Chaparro Kothari MD [address] [place] [address] Primary Staff Physician Cardiology 02/08/19 Complaint Manager Relationship Specialty Start Date End Date Cholo Soriano MD [address] [place] [address] PCP - General Family Medicine 04/03/21 Darek, Akhil S [address] [address] Referring Cardiology 12/02/18 Chaparro Kothari MD [address] [place] [address] Primary Staff Physician Cardiology 02/08/19 Complaint Manager Relationship Specialty Start Date End Date Cholo Soriano MD [address] [place] [address] PCP - General Family Medicine 04/03/21 [facility], Akhil S [address] [place] [address] Referring Cardiology 12/02/18 Chaparro Kothari MD [address] [place] [address] Primary Staff Physician Cardiology 02/08/19 Complaint Manager Relationship Specialty Start Date End Date Cholo Soriano MD [address] [place] [address] PCP - General Family Medicine 04/03/21 Akhil Oswald [address] [address] Referring Cardiology 12/02/18 Chaparro Kothari MD [address] [facility] [place] [place] [address] Primary Staff Physician Cardiology 02/08/19 Complaint Manager Relationship Specialty Start Date End Date Cholo Soriano MD [address] [place] [address] PCP - General Family Medicine 04/03/21 Akhil Oswald MD [address] [address] Referring Cardiology 12/02/18 Chaparro Kothari MD [address] [facility] [place] [address] Primary Staff Physician Cardiology 02/08/19 Complaint Manager Relationship Specialty Start Date End Date Cholo Soriano MD [address] [place] [address] PCP - General Family Medicine 04/03/21 Akhil Oswald MD [address] [address] Referring Cardiology 12/02/18 Chaparro Kothari MD [address] [place] [address] Primary Staff Physician Cardiology 02/08/19 Complaint Manager Relationship Specialty Start Date End Date Cholo Soriano MD [address] [place] [address] PCP - General Family Medicine 04/03/21 Akhil Oswald MD [address] [address] Referring Cardiology 12/02/18 Chaparro Kothari MD [address] [place], [place] [address] Primary Staff Physician Cardiology 02/08/19 Complaint Manager Relationship Specialty Start Date End Date Cholo Soriano MD [address] [place] [address] PCP - General Family Medicine 04/03/21 Akhil Oswald MD [address] [address] Referring Cardiology 12/02/18 Chaparro Kothari MD [address] [place] [address] Primary Staff Physician Cardiology 02/08/19 Complaint Manager Relationship Specialty Start Date End Date Cholo Soriano MD [address] [place] [address] PCP - General Family Medicine 04/03/21 Akhil Oswald MD [address] [address] Referring Cardiology 12/02/18 Chaparro Kothari MD [address] [place], [place] [address] Primary Staff Physician Cardiology 02/08/19 Complaint Manager Relationship Specialty Start Date End Date Cholo Soriano MD [address] [place] [address] PCP - General Family Medicine 04/03/21 Akhil Oswald MD [address] [place] [address] Referring Cardiology 12/02/18 Chaparro Kothari MD [address] [place] [address] Primary Staff Physician Cardiology 02/08/19 Complaint Manager Relationship Specialty Start Date End Date Cholo Soriano MD [address] [place] [address] PCP - General Family Medicine 04/03/21 Akhil Oswald MD [address] [address] Referring Cardiology 12/02/18 Chaparro Kothari MD [address] [place] [address] Primary Staff Physician Cardiology 02/08/19 Complaint Manager Relationship Specialty Start Date End Date Cholo Soriano MD [address] [place] [address] PCP - General Family Medicine 04/03/21 Akhil Oswald MD [address] [address] Referring Cardiology 12/02/18 Chaparro Kothari MD [address] [place] [address] Primary Staff Physician Cardiology 02/08/19 Complaint Manager Relationship Specialty Start Date End Date Cholo Soriano MD [address] [place] [address] PCP - General Family Medicine 04/03/21 Akhil Oswald MD [address] [address] Referring Cardiology 12/02/18 Chaparro Kothari MD [address] [place], [place] [address] Primary Staff Physician Cardiology 02/08/19 Complaint Manager Relationship Specialty Start Date End Date Cholo Soriano MD [address] [place] [address] PCP - General Family Medicine 04/03/21 Akhil Oswald MD [address] [address] Referring Cardiology 12/02/18 Chaparro Kothari MD [address] [place] [address] Primary Staff Physician Cardiology 02/08/19 INFORMATION SOURCE (unrecogn ized section and content) DATE CREATED AUTHOR AUTHOR'S REGGIEIZ ATION 11/28/2023 [facility] FOR RECORDS PERTAINING TO PATIENTS WHO ARE OR HAVE BEEN ENROLLED IN A CHEMICAL DEPENDENCY/SUBSTANCEABUSE PROGRAM, SOME INFORMATION MAY BE OMITTED. This clinical summary was aggregated from multiple sources. Caution should be exercised in using it in the provision of clinical care. This summary normalizes information from multiple sources, and as a consequence, information in this document may materially change the coding, format and clinical context of patient data. In addition, data may be omitted in some cases. CLINICAL DECISIONS SHOULD BE BASED ON THE PRIMARY CLINICAL RECORDS. [facility] [employer] [facility]. provides no warranty or guarantee of the accuracy or completeness of information in this document.
== END 2023-12-12 11:28 | disposition home or self-care (01) ==
PROVIDERS: Emergency Provider Emergency Medicine; PCP Family Medicine; Visit Provider Emergency Medicine
DX: S09.90XA Unspecified injury of head, initial encounter (principal); I27.21 Secondary pulmonary arterial hypertension; I48.0 Paroxysmal atrial fibrillation; M25.512 Pain in left shoulder; S49.92XA Unspecified injury of left shoulder and upper arm, initial encounter; W01.0XXA Fall on same level from slipping, tripping and stumbling without subsequent striking against object, initial encounter; Y93.K1 Activity, walking an animal; Y92.480 Sidewalk as the place of occurrence of the external cause; I10 Essential (primary) hypertension; E03.9 Hypothyroidism, unspecified; G47.33 Obstructive sleep apnea (adult) (pediatric); Z79.01 Long term (current) use of anticoagulants; Z79.890 Hormone replacement therapy; Z79.899 Other long term (current) drug therapy
CPT/HCPCS: 70450; 73030; 99283

== ENCOUNTER 2024-01-12 12:08 | Emergency (ER) | payer MEDICARE, OTHER, SELFPAY ==
[2024-01-12 12:09] VITALS: BP 140/66; PULSE 65; RESP 14; TEMP 36.7; O2SAT 93
--- NOTE | 2024-01-12 13:43 | EX.ED.DYSGE1 ---
HPI History of Present Illness Chief Complaint: Cellulitis Informant: patient Narrative Narrative: Patient presents with cellulitis to the right foot. Patient states that she noticed some redness on Thursday. She was seen in urgent care yesterday. She was written for cephalexin. She has allergies to penicillin and sulfa. She was told that she might need other or more antibiotics. She states it has not really changed much. It is not worse but is also not better. She has no nausea vomiting fevers or chills. She states she does not feel systemically ill. She has no history of diabetes. She states she could have gotten bitten by a bug but does not recall anything specifically. She states she feels fine is just that her foot is red and it is sore. [facility] Medical History AVNRT (AV donna re-entry tachycardia) Body mass index (BMI) 35 or more Bradycardia COVID-19 Dyspnea on exertion Essential (primary) hypertension History of high risk medication treatment Hyperparathyroidism Hypothyroidism LVH (left ventricular hypertrophy) Mild pulmonary arterial systolic hypertension Obesity Obstructive sleep apnea Pain in left lower leg Palpitations Paroxysmal atrial fibrillation Tachycardia Thyroid nodule Home Medications levothyroxine 25 mcg tablet 25 mcg PO DAILY thyroid 07/27/16 [History Last Taken 01/25/19 06:00] cholecalciferol (vitamin D3) 50 mcg (2,000 unit) capsule 2,000 unit PO QDAY deficiency 02/02/18 [History Last Taken 01/25/19 08:00] acetaminophen 650 mg tablet,extended release (Tylenol 8 Hour) 650 mg PO QPM 01/15/21 [History Last Taken Unknown] hydrochlorothiazide 25 mg tablet 25 mg PO QDAY HTN #90 tabs 01/15/21 [Rx Last Taken Unknown] allopurinol 300 mg tablet 300 mg PO BID high uric acid 08/26/22 [History Last Taken Unknown] cyanocobalamin (vitamin B-12) 1,000 mcg capsule 1,000 mcg PO DAILY 08/26/22 [History Last Taken Unknown] Xarelto 20 mg tablet (rivaroxaban) 20 mg PO DAILY #90 tabs 01/19/23 [Rx Last Taken Unknown] lisinopril 5 mg tablet See Rx Instructions .Route .COMPLEX #90 tabs 02/16/23 [Rx Last Taken Unknown] metoprolol tartrate 25 mg tablet See Rx Instructions .Route .COMPLEX #90 tabs 02/16/23 [Rx Last Taken Unknown] flecainide 100 mg tablet See Rx Instructions .Route .COMPLEX #180 tabs 12/02/23 [Rx Last Taken Unknown] hydrocodone-acetaminophen 5-325mg 5mg-325mg 0.5 - 1 tab (0.5 - 1 x 5-325 mg) PO Q6H PRN PRN Pain 2 days #3 TABLETS 12/12/23 [Rx Last Taken Unknown] cephalexin 500 mg capsule 500 mg PO Q6 #20 CAPSULES 01/12/24 [Rx Last Taken Unknown] doxycycline monohydrate 100 mg capsule 100 mg PO BID #20 CAPSULES 01/12/24 [Rx Last Taken Unknown] Allergy/AdvReac Type Severity Reaction Status Date / Time Penicillins Allergy Hives Verified 01/12/24 12:09 Sulfa (Sulfonamide Allergy Hives Verified 01/12/24 12:09 Antibiotics) Family History Father CVA (cerebral vascular accident) Atrial fibrillation Surgical History History of cardiac radiofrequency ablation (07/2018) History of cardioversion (01/28/19) History of hip replacement History of hysterectomy History of knee replacement History of left heart catheterization (11/20/08) History of right and left heart catheterization (02/04/21) S/P fine needle aspiration (07/2021) Social History housing: house Smoking Status: Never smoker alcohol intake: never substance use type: does not use caffeine: No ROS ROS ED Constitutional Constitutional ED: Denies chills or fever(s) ENT ENT ED: Denies rhinorrhea Cardiovascular Cardiovascular: Denies chest pain Respiratory/Chest Respiratory/Chest: Denies cough or dyspnea Gastrointestinal Gastrointestinal: Denies nausea or vomiting Musculoskeletal Musculoskeletal: Denies arthralgias or myalgias Integumentary Reports rash; Denies abscess or Abrasions Neurologic Neurologic: Denies paresthesias or weakness Hematologic/Lymphatic Hematologic/Lymphatic: Denies lymphadenopathy EXAM Physical Exam Narrative Exam Narrative: General: Patient sitting comfortably in the room no acute distress. HEENT shows no sign of trauma. Mucous membranes are moist. Cardiorespiratory Heart rate is regular. Lungs are clear saturations are normal at 93% on room air showing no hypoxia. Extremities: There is no swelling of her extremities. No tenderness until you get down to the lateral dorsal lateral aspect of the right foot. There is some erythema and warmth. But I can move her ankle very easily and there is no pain at all. No indication of intra-articular involvement. Patient also has cracking of the skin under the heels and toes with a little bit of fungal involvement of the nails. I think this is a easy possible source for bacteria inlet into the skin. Const Vital Signs: 01/12/24 12:09 Temperature 98.1 F Temperature Source Temporal Pulse Rate 65 Respiratory Rate 14 Blood Pressure 140/66 H Blood Pressure Mean 90 Pulse Ox 93 Oxygen Delivery Method Room Air MDM MDM MDM Narrative Medical decision making narrative: I told the patient that is certainly possible she could have gotten an insect bite. But we have no history of that. Therefore I would treat this as cellulitis. It is red warm and somewhat painful. She is on a cephalexin prescription but is only taken 3 tablets so far. I will write for another 5 days that she was only written for 5 days. We will add Doxy to get greater and broader staph and resistant staph coverage. We discussed reasons to return. Discharge Plan Triage Chief Complaint: Cellulitis ED Provider: Eber Alicia Dx/Rx/DC Orders Clinical Impression: Cellulitis of foot, right Instructions: ED Cellulitis Prescriptions: New doxycycline monohydrate 100 mg capsule 100 mg PO BID Qty: 20 0RF cephalexin [cephalexin] 500 mg capsule 500 mg PO Q6 Qty: 20 0RF No Action cholecalciferol (vitamin D3) 2,000 unit capsule 2,000 unit PO QDAY hydrochlorothiazide 25 mg tablet 25 mg PO QDAY Qty: 90 3RF acetaminophen [Tylenol 8 Hour] 650 mg tablet extended release 650 mg PO QPM cyanocobalamin (vitamin B-12) 1,000 mcg capsule 1,000 mcg PO DAILY levothyroxine 25 MCG tablet 25 mcg PO DAILY allopurinol 300 mg tablet 300 mg PO BID hydrocodone-acetaminophen [hydrocodone-acetaminophen] 5-325 mg tablet 0.5 - 1 tab PO Q6H PRN PRN (Reason: Pain) 2 Days Qty: 3 0RF Xarelto 20 mg tablet 20 mg PO DAILY Qty: 90 3RF metoprolol tartrate 25 mg tablet See Rx Instructions .ROUTE .COMPLEX Qty: 90 4RF Dose Instruction: TAKE 1/2 TAB BY MOUTH TWICE DAILY Rx Instructions: TAKE 1/2 TAB BY MOUTH TWICE DAILY lisinopril 5 mg tablet See Rx Instructions .ROUTE .COMPLEX Qty: 90 4RF Dose Instruction: TAKE 1 TABLET BY MOUTH EVERYDAY Rx Instructions: TAKE 1 TABLET BY MOUTH EVERYDAY flecainide 100 mg tablet See Rx Instructions .ROUTE .COMPLEX Qty: 180 3RF Dose Instruction: TAKE 1 TABLET BY MOUTH EVERY 12 HOURS (DOSE INCREASE) Rx Instructions: TAKE 1 TABLET BY MOUTH EVERY 12 HOURS (DOSE INCREASE) Primary Care Provider: Cholo Au Referrals: Cholo Au MD [Primary Care Provider] - 5-7 Days Disposition Disposition: Home, Self Care
[2024-01-12 14:04] VITALS: BP 130/74; PULSE 72; RESP 16; TEMP 36.6; O2SAT 99
== END 2024-01-12 14:05 | disposition home or self-care (01) ==
PROVIDERS: Emergency Provider Emergency Medicine; PCP Family Medicine; Visit Provider Emergency Medicine
DX: L03.115 Cellulitis of right lower limb (principal); I27.21 Secondary pulmonary arterial hypertension; I48.0 Paroxysmal atrial fibrillation; I10 Essential (primary) hypertension; E03.9 Hypothyroidism, unspecified; G47.33 Obstructive sleep apnea (adult) (pediatric); Z88.0 Allergy status to penicillin; Z88.2 Allergy status to sulfonamides; Z79.01 Long term (current) use of anticoagulants; Z79.890 Hormone replacement therapy; Z79.899 Other long term (current) drug therapy
CPT/HCPCS: 99282

== ENCOUNTER → 2024-11-02 | Outpatient (CLI) | payer MEDICARE, OTHER, SELFPAY ==
--- NOTE | 2024-11-02 07:49 | ECHOD_ITS ---
Reason For Study: ATRIAL FIBRILLATION Procedure This was a 2D Doppler, Color Flow transthoracic echocardiogram. Exam performed in department. Left Ventricle Normal LV size. The left ventricular ejection fraction is 60 %. No regional wall motion abnormalities noted. Right Ventricle Normal RV size. Normal systolic function. Atria Normal left atrium. Normal right atrium. Mitral Valve There is mild mitral annular calcification. Mild (1+) eccentric mitral valve insufficiency. Tricuspid Valve Normal tricuspid valve. Mild (1+) tricuspid valve insufficiency. Pulmonary artery systolic pressure is 39 mmHg. Aortic Valve Trisinus/trileaflet aortic valve. Mild focal aortic valve calcification. Pulmonic Valve Normal pulmonic valve. Great Vessels Normal aortic root. The pulmonary artery is normal size. Inferior vena cava collapse with respiration. Pericardium/Pleural No pericardial effusion. MMode/2D Measurements & Calculations LVIDd: 5.6 cm IVSd: 1.2 cm LVOT diam: 2.0 cm LVIDs: 3.7 cm LVPWd: 1.1 cm LVOT area: 3.1 cm2 RVDd: 4.2 cm FS: 34.5 % asc Aorta Diam: 3.7 cm LAV(MOD-bp): 70.3 ml LVAd ap4: 25.5 cm2 LAV(MOD-bp) Indexed: 31.3 ml/m2 LVLd ap4: 7.5 cm LAV(MOD-sp2): 68.0 ml EDV(MOD-sp4): 71.3 ml LAV(MOD-sp4): 71.5 ml EDV(sp4-el): 73.2 ml LVAs ap4: 12.9 cm2 LVLs ap4: 6.4 cm ESV(MOD-sp4): 21.5 ml ESV(sp4-el): 21.9 ml EF(MOD-sp4): 69.9 % EF(sp4-el): 70.1 % LVAd ap2: 27.5 cm2 SV(MOD-sp4): 49.9 ml SV(MOD-sp2): 49.3 ml LVLd ap2: 7.9 cm SI(MOD-sp4): 22.2 ml/m2 SI(MOD-sp2): 21.9 ml/m2 EDV(MOD-sp2): 79.4 ml EDV(sp2-el): 81.2 ml LVAs ap2: 15.2 cm2 LVLs ap2: 6.6 cm ESV(MOD-sp2): 30.1 ml ESV(sp2-el): 29.8 ml EF(MOD-sp2): 62.1 % SV(sp4-el): 51.3 ml Ao sinus diam: 3.[address] Junction: 2.9 cm LA dimension(2D): 4.1 cm LA A4 area: 21.8 cm2 RA A4 area: 14.6 cm2 TAPSE: 2.5 cm Time Measurements MV dec time: 0.17 sec Doppler Measurements & Calculations MV E max khoa: 132.6 cm/sec Lat Peak E' Khoa: 5.9 cm/sec Med Peak E' Khoa: 6.3 cm/sec MV A max khoa: 52.6 cm/sec E/E' lat: 22.4 E/E' med: 21.1 MV E/A: 2.5 MV dec slope: 772.6 cm/sec2 Ao V2 max: 204.6 cm/sec LV V1 max: 128.3 cm/sec Ao max P.8 mmHg LV V1 max P.6 mmHg Ao V2 mean: 149.6 cm/sec LV V1 mean P.2 mmHg Ao mean P.8 mmHg LV V1 mean: 100.6 cm/sec Ao V2 VTI: 49.1 cm LV V1 VTI: 31.0 cm AV (velocity ratio): 0.63 KATHIA(I,D): 1.9 cm2 KATHIA(V,D): 1.9 cm2 SV(LVOT): 94.7 ml PA V2 max: 120.7 cm/sec TR max khoa: 295.2 cm/sec TR max P.9 mmHg ECHO/Echo Complete Interpretation Summary Normal LV size. The left ventricular ejection fraction is 60 %. No regional wall motion abnormalities noted. Mild (1+) eccentric mitral valve insufficiency. Mild focal aortic valve calcification. Pulmonary artery systolic pressure is 39 mmHg. Ordering Physician: Akhil Oswald Referring Physician: Akhil Oswald MD Performed By: Tiara Che RDCS
== END | disposition home or self-care (01) ==
LOC: CVS 07:46
PROVIDERS: PCP Family Medicine; Referring Provider Internal Medicine Cardiovascular Disease; Visit Provider Internal Medicine Cardiovascular Disease
DX: I48.0 Paroxysmal atrial fibrillation (principal)
CPT/HCPCS: 93306

== ENCOUNTER 2025-04-10 07:07 | Emergency (ER) | payer MEDICARE, OTHER, SELFPAY ==
[2025-04-10 07:08] VITALS: BP 190/66; PULSE 61; RESP 16; TEMP 36.7; O2SAT 99; BMI 39.6
--- NOTE | 2025-04-10 07:32 | EX.ED.DYSGE1 ---
HPI History of Present Illness Chief Complaint: Rash Informant: patient Narrative Narrative: 75-year-old female presenting to the emergency room with a rash on buttocks. Patient states that last week she was seen in urgent care for a bull's-eye rash on her right chest. She has not seen any ticks but she was recently seen in a cottage and they were ticks around. She was treated with doxycycline. Now she notes a rash in the midline on both buttocks. She has a photograph to show me. She has a pediatric occupational therapist and a primary care doctor. Neither have evaluated either rash yet. She also notes pain in the left hip that is worse with range of motion. No radicular symptoms. 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 Thyroid nodule Dyspnea on exertion Obesity LVH (left ventricular hypertrophy) History of high risk medication treatment Hypothyroidism Essential (primary) hypertension Hyperparathyroidism Obstructive sleep apnea Body mass index (BMI) 35 or more Pain in left lower leg Paroxysmal atrial fibrillation Home Medications ?Medication ?Instructions ?Recorded ?Last Taken ?Type levothyroxine 25 mcg tablet 25 mcg PO DAILY thyroid 07/27/16 01/25/19 06:00 History cholecalciferol (vitamin D3) 50 2,000 unit PO QDAY deficiency 02/02/18 01/25/19 08:00 History mcg (2,000 unit) capsule acetaminophen 650 mg 650 mg PO QPM 01/15/21 Unknown History tablet,extended release (Tylenol 8 Hour) hydrochlorothiazide 25 mg tablet 25 mg PO QDAY HTN #90 tabs 01/15/21 Unknown Rx allopurinol 300 mg tablet 300 mg PO BID high uric acid 08/26/22 Unknown History cyanocobalamin (vitamin B-12) 1,000 mcg PO DAILY 08/26/22 Unknown History 1,000 mcg capsule cephalexin 500 mg capsule 500 mg PO Q6 #20 CAPSULES 01/12/24 Unknown Rx lisinopril 5 mg tablet 5 mg PO DAILY #90 TABLETS 05/09/24 Unknown Rx metoprolol tartrate 25 mg tablet 12.5 mg (1/2 x 25 mg) PO BID #90 05/09/24 Unknown Rx TABLETS Xarelto 20 mg tablet (rivaroxaban) See Rx Instructions .Route 02/06/25 Unknown Rx .COMPLEX #90 tabs flecainide 100 mg tablet 100 mg PO Q12H #180 TABLETS 02/28/25 Unknown Rx ketoconazole 2 % topical cream 1 applic topical BID #60 grams 04/10/25 Unknown Rx Allergy/AdvReac Type Severity Reaction Status Date / Time Penicillins Allergy Hives Verified 04/10/25 07:08 Sulfa (Sulfonamide Allergy Hives Verified 04/10/25 07:08 Antibiotics) Family History Father CVA (cerebral vascular accident) Atrial fibrillation Surgical History S/P fine needle aspiration (07/2021) History of right and left heart catheterization (02/04/21) History of left heart catheterization (11/20/08) History of hip replacement History of knee replacement History of hysterectomy History of cardioversion (01/28/19) History of cardiac radiofrequency ablation (07/2018) Social History housing: house Smoking Status: Never smoker alcohol intake: never substance use type: does not use caffeine: No ROS ROS ED Constitutional Constitutional ED: Denies chills, fever(s) or weight loss Eyes Eyes: Denies change in vision or diplopia ENT ENT ED: Denies ear pain, rhinorrhea or sore throat Cardiovascular Cardiovascular: Denies chest pain, orthopnea, palpitations or racing heartbeat Respiratory/Chest Respiratory/Chest: Denies cough, dyspnea or orthopnea Gastrointestinal Gastrointestinal: Denies abdominal pain, diarrhea, nausea or vomiting Genitourinary Genitourinary ED: Denies dysuria, hematuria or urinary frequency Musculoskeletal Musculoskeletal: Reports other Details: Left hip pain ; Denies arthralgias or myalgias Integumentary Reports rash; Denies abscess Neurologic Neurologic: Denies headache(s) or weakness Psychiatric Psychiatric: Denies anxiety, depression, suicidal ideation or suicidal thoughts Endocrine Endocrinology: Denies polydipsia, polyphagia or polyuria Allergic/Immunologic Allergic/Immunologic ED: Denies mouth swelling, tongue swelling or urticaria EXAM Physical Exam Const Vital Signs: 04/10/25 07:08 04/10/25 07:38 Temperature 98.1 F 98.1 F Temperature Source Oral Pulse Rate 61 78 Respiratory Rate 16 19 H Blood Pressure 190/66 H 117/93 H Blood Pressure Mean 107 101 Pulse Ox 99 97 Oxygen Delivery Method Room Air Positive well nourished and well developed General Appearance ED: well developed HEENT Reports normocephalic, head/scalp atraumatic and moist mucous membranes Eyes PERRL and EOMs intact bilaterally Neck no lymphadenopathy, supple and no JVD Resp normal respiratory effort and clear to auscultation bilaterally Cardio regular rate, regular rhythm and no murmurs GI normal to inspection, nondistended, normoactive bowel sounds and non-tender Palpation: soft Back/Spine no CVA tenderness and normal ROM Extremity normal to inspection General Extremety ED: Negative for edema General Extremity: Negative for edema Neuro oriented x3 and CN's II-XII intact bilaterally Sensorium / Orientation: alert Motor Exam: strength 5/5 throughout Psych mental status grossly normal Mood & Affect: Negative for depressed or tearful Skin no wounds Skin Narrative: There is a symmetric rash on either buttock directly in the midline. The outer edge is slightly raised and erythematous with flaky or less red skin going towards the center. I do not appreciate cellulitis. There is no exudate. No vesicular lesions. MDM MDM MDM Narrative Medical decision making narrative: Differential diagnosis includes but not limited to yeast dermatitis tinea corpus contact dermatitis zoster cellulitis. Based on the photograph the patient shows me in what I am seen with a well-demarcated edge that slightly erythematous and raised that is fainter in the center with some flaking skin I do wonder if this could be tinea corporis. I think it is reasonable that we trial a course of ketoconazole. If the patient's not improving I would recommend following up with her pediatric occupational therapist or her primary care doctor. History & Record Review Discussion w/independent historian: Patient Additional record(s) reviewed:: Prior ED visit Discharge Plan Triage Chief Complaint: Rash ED Provider: Kevin Taylor Dx/Rx/DC Orders Clinical Impression: Tinea corporis Instructions: ED Ringworm of the Skin Prescriptions: New ketoconazole 2 % cream 1 applic topical BID Qty: 60 1RF Rx Instructions: Apply to rash 2 times daily for 4 weeks (or for 1 week after lesions have healed) No Action cholecalciferol (vitamin D3) 2,000 unit capsule 2,000 unit PO QDAY hydrochlorothiazide 25 mg tablet 25 mg PO QDAY Qty: 90 3RF acetaminophen [Tylenol 8 Hour] 650 mg tablet extended release 650 mg PO QPM cyanocobalamin (vitamin B-12) 1,000 mcg capsule 1,000 mcg PO DAILY levothyroxine 25 MCG tablet 25 mcg PO DAILY allopurinol 300 mg tablet 300 mg PO BID cephalexin [cephalexin] 500 mg capsule 500 mg PO Q6 Qty: 20 0RF metoprolol tartrate 25 mg tablet 12.5 mg PO BID Qty: 90 4RF lisinopril 5 mg tablet 5 mg PO DAILY Qty: 90 4RF Xarelto 20 mg tablet See Rx Instructions .ROUTE .COMPLEX Qty: 90 3RF Dose Instruction: TAKE 1 TABLET BY MOUTH EVERY DAY Rx Instructions: TAKE 1 TABLET BY MOUTH EVERY DAY flecainide 100 mg tablet 100 mg PO Q12H Qty: 180 3RF Primary Care Provider: Cholo Au Referrals: Cholo Au MD [Primary Care Provider] - 1 Week if not improving Avi Granda MD [Med Staff - Technical Operator] - 1 Week if not improving Print Language: Indonesian Disposition Disposition: Home, Self Care Discharge Date/Time: 04/10/25 07:46
[2025-04-10 07:38] VITALS: BP 117/93; PULSE 78; RESP 19; TEMP 36.7; O2SAT 97
== END 2025-04-10 07:46 | disposition home or self-care (01) ==
LOC: ED 07:45
PROVIDERS: Emergency Provider Emergency Medicine; PCP Family Medicine; Visit Provider Emergency Medicine
DX: B35.4 Tinea corporis (principal); M25.552 Pain in left hip; I10 Essential (primary) hypertension
CPT/HCPCS: 99282; A4216

== ENCOUNTER → 2025-05-18 | Outpatient (CLI) | payer MEDICARE, OTHER, SELFPAY ==
--- NOTE | 2025-05-18 08:33 | RAD_ITS ---
PROCEDURE: UPPER GI W/BA SWALLOW 05/18/2025 REASON FOR EXAM: DYSPHAGIA, PHARYNGOESOPHAGEAL PHASE TECHNIQUE: Double contrast upper GI series and single and double contrast esophagram (combined dictation): COMPARISON: None. FINDINGS: Limited imaging of the thoracic spine demonstrates moderate degenerative changes, along with dextroscoliosis. The esophagus demonstrates no area of persistent narrowing. No mucosal abnormality or mass is seen. Occasional mid to distal esophageal spasm is noted, however. During the time of this examination, gastroesophageal reflux was not elicited. Evaluation of the duodenum is somewhat limited due to incomplete dilation, but thickening of mucosal folds is likely present, concerning for duodenitis. No gastric abnormality is identified. RAD/Upper GI w/BA Swallow IMPRESSION: 1. Findings concerning for possible duodenitis. 2. Intermittent mid to distal esophageal spasm. 3. No gastric or esophageal abnormality is otherwise identified. Reading Location: [place] [id number]
== END | disposition home or self-care (01) ==
LOC: RAD 08:09
PROVIDERS: PCP Family Medicine; Referring Provider Family Medicine; Visit Provider Family Medicine
DX: R13.14 Dysphagia, pharyngoesophageal phase (principal)
CPT/HCPCS: 74246

== ENCOUNTER 2025-11-16 02:01 | Emergency (ER) | payer MEDICARE, OTHER, SELFPAY ==
[2025-11-16 02:01] VITALS: BP 212/82; PULSE 65; RESP 20; TEMP 36.4; O2SAT 98; BMI 39.9
[2025-11-16 02:06] VITALS: BP 200/89
--- NOTE | 2025-11-16 02:21 | EKG12_ITS ---
Test Reason : SHOLDER PAIN Blood Pressure : */* mmHG Vent. Rate : 55 BPM Atrial Rate : 55 BPM P-R Int : 204 ms QRS Dur : 104 ms QT Int : 468 ms P-R-T Axes : 80 7 45 degrees QTcB Int : 447 ms Sinus bradycardia with Premature atrial complexes Low voltage QRS Borderline ECG Confirmed by Emanuel Hanley ([id number]), senior editor ADEN HICKS ([id number]) on 11/17/2025 8:31:37 AM Referred By: Confirmed By: Emanuel Hanley
--- NOTE | 2025-11-16 02:22 | EX.ED.UPPERE ---
HPI History of Present Illness HPI Narrative: Patient presents with left shoulder pain that began tonight. Patient states it feels like there is something being torn in her left shoulder. Patient states it is worse with any movement. Patient states nothing makes it better. Patient states it began rather suddenly tonight. Patient states it is constant. Patient denies any trauma or injury. Patient denies any paresthesias or weakness. Patient was concerned that this could be cardiac. 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 Thyroid nodule Dyspnea on exertion Obesity LVH (left ventricular hypertrophy) History of high risk medication treatment Hypothyroidism Essential (primary) hypertension Hyperparathyroidism Obstructive sleep apnea Body mass index (BMI) 35 or more Pain in left lower leg Paroxysmal atrial fibrillation Home Medications ?Medication ?Instructions ?Recorded ?Last Taken ?Type levothyroxine 25 mcg tablet 25 mcg PO DAILY thyroid 07/27/16 01/25/19 06:00 History cholecalciferol (vitamin D3) 50 2,000 unit PO QDAY deficiency 02/02/18 01/25/19 08:00 History mcg (2,000 unit) capsule acetaminophen 650 mg 650 mg PO QPM 01/15/21 Unknown History tablet,extended release (Tylenol 8 Hour) hydrochlorothiazide 25 mg tablet 25 mg PO QDAY HTN #90 tabs 01/15/21 Unknown Rx allopurinol 300 mg tablet 300 mg PO BID high uric acid 08/26/22 Unknown History cyanocobalamin (vitamin B-12) 1,000 mcg PO DAILY 08/26/22 Unknown History 1,000 mcg capsule Xarelto 20 mg tablet (rivaroxaban) See Rx Instructions .Route 02/06/25 Unknown Rx .COMPLEX #90 tabs ketoconazole 2 % topical cream 1 applic topical BID #60 grams 04/10/25 Unknown Rx flecainide 100 mg tablet 100 mg PO Q12H #180 TABLETS 10/31/25 Unknown Rx lisinopril 5 mg tablet 5 mg PO DAILY #90 TABLETS 10/31/25 Unknown Rx metoprolol tartrate 25 mg tablet 12.5 mg (1/2 x 25 mg) PO BID #90 10/31/25 Unknown Rx TABLETS oxycodone-acetaminophen 5 mg-325 1 tab PO Q6H PRN PRN Pain 3 days 11/16/25 Unknown Rx mg tablet #12 TABLETS Allergy/AdvReac Type Severity Reaction Status Date / Time Penicillins Allergy Hives Verified 11/16/25 02:03 Sulfa (Sulfonamide Allergy Hives Verified 11/16/25 02:03 Antibiotics) Family History Father CVA (cerebral vascular accident) Atrial fibrillation Surgical History S/P fine needle aspiration (07/2021) History of right and left heart catheterization (02/04/21) History of left heart catheterization (11/20/08) History of hip replacement History of knee replacement History of hysterectomy History of cardioversion (01/28/19) History of cardiac radiofrequency ablation (07/2018) Social History housing: house Smoking Status: Never smoker alcohol intake: never substance use type: does not use caffeine: No ROS ROS ED Constitutional Constitutional ED: Denies chills or fever(s) Eyes Eyes: Denies blurry vision or change in vision ENT ENT ED: Denies rhinorrhea or sore throat Cardiovascular Cardiovascular: Denies chest pain or palpitations Respiratory/Chest Respiratory/Chest: Denies cough or dyspnea Gastrointestinal Gastrointestinal: Reports nausea; Denies vomiting Genitourinary Genitourinary ED: Denies dysuria or hematuria Musculoskeletal Musculoskeletal: Reports neck pain; Denies back pain Integumentary Denies abscess or rash Neurologic Neurologic: Denies headache(s) or weakness Allergic/Immunologic Allergic/Immunologic ED: Denies mouth swelling or urticaria EXAM Physical Exam Const Vital Signs: 11/16/25 02:01 11/16/25 02:06 Temperature 97.5 F L Temperature Source Oral Pulse Rate 65 Respiratory Rate 20 H Blood Pressure 212/82 H 200/89 H Blood Pressure Mean 125 126 Pulse Ox 98 Positive well nourished and well developed Constitutional Narrative: BMI is 39.9. General Appearance ED: well developed and NAD HEENT Reports moist mucous membranes normocephalic Neck full ROM and supple Resp normal respiratory effort and clear to auscultation bilaterally Cardio regular rhythm Rate: bradycardia GI non-tender and non-distended Palpation: soft Extremity Extremity Narrative: There is tenderness over the left shoulder. There is no edema or ecchymosis. There is no deformity noted. Range of motion was limited in all motions of the left shoulder secondary to pain. Sensation was intact to light touch in the radial, median, ulnar, and axillary areas. Strength is 5/5 in the radial, median, and ulnar areas. Neuro oriented x3, CN's II-XII intact bilaterally, moves all extremities, no focal motor deficits and no sensory deficits noted Sensorium / Orientation: alert Motor Exam: strength 5/5 throughout Psych mental status grossly normal MDM MDM MDM Narrative Medical decision making narrative: Differential diagnosis includes cardiac dysrhythmia, cardiac ischemia, tendinitis, rotator cuff strain, and degenerative arthritis. EKG will be obtained to assess for cardiac dysrhythmia and cardiac ischemia. CBC will be obtained to assess for leukocytosis and anemia. Basic metabolic profile will be obtained to assess for electrolyte abnormality and renal function. High-sensitivity troponin will be obtained to assess for cardiac ischemia. D-dimer will be obtained to assess for pulmonary embolism and aortic dissection. History & Record Review Additional record(s) reviewed:: Prior ED visit and Prior labs Lab Data Attestation: I reviewed the patient's lab results. Lab results narrative: CBC was reviewed. There is a mild anemia with a hemoglobin of 11.1 and hematocrit of 35.5. The remainder is within normal limits. Basic metabolic profile was reviewed. BUN was slightly elevated at 25. The remainder is within normal limits. D-dimer was reviewed and was 0.51. This is normal for the patient's age. Initial high-sensitivity troponin was reviewed and was minimally elevated at 19. 2-hour repeat high-sensitivity troponin was reviewed and was improved at 17. Radiography Chest X-Ray - ED: 1 View, Read by ED Physician, Read by Radiologist and No Acute Disease Diagnostic Testing: Portable 1 view chest x-ray was obtained. On my independent interpretation, lung grey are clear. There is normal cardiac silhouette. Bony thorax shows some degenerative changes. There is no acute process noted. Radiologist also interpreted the x-ray and agrees. EKG Initial EKG: Attestation: I personally reviewed and interpreted this EKG as follows: Interpretation: No Acute Injury Pattern and Sinus Bradycardia (With occasional PAC with a rate of 55) Comments: EKG was obtained. On my independent interpretation, it showed a sinus bradycardia with occasional PAC with a rate of 55. DE interval, QRS interval, and QTc intervals were all normal. [place] was normal. There are no acute ST or T wave changes. Prior EKG tracings: available for review Prior: Unchanged (10/06/2024) Treatment and Re-Evaluation Narrative: Patient was given injection of morphine here. Patient had no relief with morphine injection. Patient was given aspirin and sublingual nitroglycerin. Patient's blood pressure dropped after nitroglycerin. Patient was given IV fluids. Patient was feeling better on reevaluation. Patient states her pain started to return. Patient was given a repeat dose of morphine. Patient was feeling better after this. On reevaluation, patient still had some pain with motion of the left shoulder. It appears to be musculoskeletal. Patient was given a sling for comfort. Patient was given a prescription for Percocet for pain. Patient was instructed to use ice to the area. Patient was instructed to follow-up with her primary care physician in 5 to 7 days. Patient was instructed to return if worse in any way. Patient understood and was agreeable with the plan. All questions were answered. Discharge Plan Triage Chief Complaint: Upper Extremity Injury ED Provider: Dev Portillo Dx/Rx/DC Orders Clinical Impression: Left shoulder pain, Essential (primary) hypertension Instructions: ED Shoulder Pain, Uncertain Cause Prescriptions: New oxycodone-acetaminophen 5-325 mg tablet 1 tab PO Q6H PRN PRN (Reason: Pain) 3 Days Qty: 12 0RF No Action cholecalciferol (vitamin D3) 2,000 unit capsule 2,000 unit PO QDAY hydrochlorothiazide 25 mg tablet 25 mg PO QDAY Qty: 90 3RF acetaminophen [Tylenol 8 Hour] 650 mg tablet extended release 650 mg PO QPM cyanocobalamin (vitamin B-12) 1,000 mcg capsule 1,000 mcg PO DAILY levothyroxine 25 MCG tablet 25 mcg PO DAILY allopurinol 300 mg tablet 300 mg PO BID ketoconazole 2 % cream 1 applic topical BID Qty: 60 1RF Rx Instructions: Apply to rash 2 times daily for 4 weeks (or for 1 week after lesions have healed) Xarelto 20 mg tablet See Rx Instructions .ROUTE .COMPLEX Qty: 90 3RF Dose Instruction: TAKE 1 TABLET BY MOUTH EVERY DAY Rx Instructions: TAKE 1 TABLET BY MOUTH EVERY DAY flecainide 100 mg tablet 100 mg PO Q12H Qty: 180 3RF lisinopril 5 mg tablet 5 mg PO DAILY Qty: 90 4RF metoprolol tartrate 25 mg tablet 12.5 mg PO BID Qty: 90 4RF Primary Care Provider: Cholo Au Referrals: Cholo Au MD [Primary Care Provider, Family Practice] - 3-5 Days Print Language: Uzbek Disposition Disposition: Home, Self Care Discharge Date/Time: 11/16/25 06:57
--- OUTSIDE RECORDS SUMMARY | 2025-11-16 02:29 | XMS RPT_ITS | CCD ---
Author Organization [facility] Care Team Providers Care Receiving Operator Name Role Phone Jacki ISRAEL, Madhavi Ayoub Unavailable Unavailable Cherie Driver Unavailable Akhil Muñoz Unavailable Chaparro Kothari MD Unavailable Cholo Soriano MD Primary Care Provider Akhil Muñoz Unavailable Chaparro Kothari MD Unavailable Cholo Soriano MD Primary Care Provider Dr. Cholo Soriano Primary Care Provider Dr. Cholo Soriano Referring Provider Dr. Lucho Ashley Attending Provider Dr. Akhil Muñoz Attending Provider Fatoumata VICTORIA, ISAAC Ross Attending Provider [phone] Akhil Muñoz Unavailable Chaparro Kothari MD Unavailable Cholo Soriano MD Primary Care Provider Dr. Cholo Soriano Primary Care Provider Dr. Cholo Soriano Referring Provider Dr. Lucho Ashley Attending Provider Dr. Akhil Muñoz Attending Provider Fatoumata VICTORIA, ISAAC Ross Attending Provider Darek MD, Akhil S Unavailable Taye ECHEVARRIA, Chaparro Parr Unavailable Dr. Cholo Soriano Primary Care Provider Dr. Cholo Soriano Referring Provider Dr. Akhil Muñoz Attending Provider Christie ECHEVARRIA, Cholo Ayoub Primary Care Provider Christie ECHEVARRIA, Cholo Ayoub Primary Care Provider PROVIDER, UNKNOWN Referring Unavailable CHRISTIE, CHOLO A Primary Care Unavailable Arianna 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DEBURRER MACHINE, Fina Unavailable Hilda Snyder PA-C Unavailable Cholo Soriano MD Primary Care Provider Christie ECHEVARRIA, Cholo Ayoub Primary Care Provider [phone] Dr. Cholo Soriano MD Primary Care Provider Dr. Kevin Taylor DO Emergency Provider Arianna 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DEBURRER MACHINE, Fina Unavailable Hilda Snyder PA-C Unavailable Dr. Kevin Taylor DO Attending Provider Dr. Cholo Soriano MD Attending Provider Dr. Cholo Soriano MD Referring Provider Akhil Muñoz Attending Unavailable Ye Muñozril Referring Unavailable Christie, Cholo Primary Care Unavailable Cholo Soriano Attending Unavailable Christie, Cholo Referring Unavailable Christie, Cholo Primary Care Unavailable Kevin Taylor Attending Unavailable Christie, Cholo Primary Care Unavailable Christie, Cholo Primary Care Unavailable Christie, Cholo Referring Unavailable DarekYe reyesril Attending Unavailable Darek, Acra Attending Unavailable Christie, Cholo Primary Care Unavailable CHRISTIE, CHOLO A Primary Care Unavailable HEDY GAMEZ Attending Unavailable RONAL BELL Referring Unavailable CHRISTIE, CHOLO A Primary Care Unavailable LUIS BARRIENTOS Referring Unavailable CHRISTIE, CHOLO A Primary Care Unavailable CHRISTIE, CHOLO A Referring Unavailable MAGDA SIMON Referring Unavail CHOLO Cary Primary Care Unavailable MAGDA SIMON Referring Unavail able CHOLO SORIANO Primary Care Unavailable asc Aorta Diam: 3.7 cm LAV(MOD-bp): 70.3 ml LVAd ap4: 25.5 cm2 LAV(MOD-bp) Indexed: 31.3 ml/m2 LVLd ap4: 7.5 cm LAV(MOD-sp2): 68.0 ml EDV(MOD-sp4): 71.3 ml LAV(MOD-sp4): 71.5 ml EDV(sp4-el): 73.2 ml LVAs ap4: 12.9 cm2 LVLs ap4: 6.4 cm ESV(MOD-sp4): 21.5 ml ESV(sp4-el): 21.9 ml EF(MOD-sp4): 69.9 % EF(sp4-el): 70.1 % LVAd ap2: 27.5 cm2 SV(MOD-sp4): 49.9 ml SV(MOD-sp2): 49.3 ml LVLd ap2: 7.9 cm SI(MOD-sp4): 22.2 ml/m2 SI(MOD-sp2): 21.9 ml/m2 EDV(MOD-sp2): 79.4 ml EDV(sp2-el): 81.2 ml LVAs ap2: 15.2 cm2 LVLs ap2: 6.6 cm ESV(MOD-sp2): 30.1 ml ESV(sp2-el): 29.8 ml EF(MOD-sp2): 62.1 % SV(sp4-el): 51.3 ml Ao sinus diam: 3.[address] Junction: 2.9 cm LA dimension(2D): 4.1 cm LA A4 area: 21.8 cm2 RA A4 area: 14.6 cm2 TAPSE: 2.5 cm Time Measurements MV dec time: 0.17 sec Doppler Measurements Calculations MV E max sandra: 132.6 cm/sec Lat Peak E' Sandra: 5.9 cm/sec Med Peak E' Sandra: 6.3 cm/sec MV A max sandra: 52.6 cm/sec E/E' lat: 22.4 E/E' med: 21.1 MV E/A: 2.5 MV dec slope: 772.6 cm/sec2 Ao V2 max: 204.6 cm/sec LV V1 max: 128.3 cm/sec Ao max P.8 mmHg LV V1 max P.6 mmHg Ao V2 mean: 149.6 cm/sec LV V1 mean P.2 mmHg Ao mean P.8 mmHg LV V1 mean: 100.6 cm/sec Ao V2 VTI: 49.1 cm LV V1 VTI: 31.0 cm AV (velocity ratio): 0.63 KATHIA(I,D): 1.9 cm2 KATHIA(V,D): 1.9 cm2 SV(LVOT): 94.7 ml PA V2 max: 120.7 cm/sec TR max sandra: 295.2 cm/sec TR max P.9 mmHg ECHO/Echo Complete Interpretation Summary Normal LV size. The left ventricular ejection fraction is 60 %. No regional wall motion abnormalities noted. Mild (1+) eccentric mitral valve insufficiency. Mild focal aortic valve calcification. Pulmonary artery systolic pressure is 39 mmHg. Ordering Physician: Akhil Muñoz Referring Physician: Akhil Muñoz MD Performed By: Tiara Che RDCS 11/02/24948 Date Akhil Muñoz MD CC: Dr. Akhil Muñoz MD; Dr. Cholo Soriano MD Date Dictated: 11/02/24802 Date Transcribed: 11/02/24948 Crystal Slicer: Signed Normal [facility] Basic metabolic 2000 panelon 10-24-2024 Anion gap [Moles/Vol] 12 mmol/L Normal 8-15 [facility] Comment on above: Order Comment: Speci men Type: BLOOD SPECIMENOrdering Facility: [facility] Address: [address] [place] [address] Performed By: #### 2 4321-2 ####[facility] MILLWLUZLIA [id number] [place] [address] [place] Calcium [Mass/Vol] 10.1 mg/dL Normal 8.5-10.2 [facility] Comment on above: Order Comment: Speci men Type: BLOOD SPECIMENOrdering Facility: [facility] Address: [address] [place] [address] Performed By: #### 2 4321-2 ####[facility] [id number] [place] [address] [place] Chloride [Moles/Vol] 102 mmol/L Normal 98-107 [facility] Comment on above: Order Comment: Speci men Type: BLOOD SPECIMENOrdering Facility: [facility] Address: [address] [place] [address] Performed By: #### 2 4321-2 ####[facility] MILLWTXLIA [id number] [place] [address] [place] CO2 [Moles/Vol] 24 mmol/L Normal 22-30 [facility] Comment on above: Order Comment: Speci men Type: BLOOD SPECIMENOrdering Facility: [facility] Address: [address] [place] [address] Performed By: #### 2 4321-2 ####[facility] MILLMAGNOLIANCLIA [id number] [place] [address] [place] Creatinine [Mass/Vol] 0.88 mg/dL Normal 0.58-0.96 [facility] Comment on above: Order Comment: Cooper mcmullen Type: BLOOD SPECIMENOrdering Facility: [facility] Address: [address] [place] [address] Performed By: #### 2 4321-2 ####[facility] [id number] [place] [address] [place] Creatinine and Glomerular filtration rate.predicted panel (S/P/Bld) 69 mL/min/1.73m??? Normal >=60 [facility] Comment on above: Order Comment: Cooper mcmullen Type: BLOOD SPECIMENOrdering Facility: [facility] Address: [address] [place] [address] Result Comment: Stefania mated Glomerular Filtration Rate (eGFR) is calculated using the 2020 CKD-EPI creatinine equation. This equation utilizes serum creatinine, sex, and age as parameters. The creatinine assay has traceable calibration to isotope dilution-mass spectrometry. Refer to KDIGO guidelines for clinical interpretation. In patients with unstable renal function, e.g. those with acute kidney injury, the eGFR may not accurately reflect actual GFR. Performed By: #### 2 4321-2 ####[facility] [id number] [place] [address] [place] Glucose [Mass/Vol] 103 mg/dL High 74-99 [facility] Comment on above: Order Comment: Cooper mcmullen Type: BLOOD SPECIMENOrdering Facility: [facility] Address: [address] [place] [address] Result Comment: The [place] Diabetes Association (ADA) provides guidance for cutoff values for fasting glucose and random glucose. The ADA defines fasting as no caloric intake for at least 8 hours. Fasting plasma glucose results between 100 to 125 mg/dL indicate increased risk for diabetes (prediabetes). Fasting plasma glucose results greater than or equal to 126 mg/dL meet the criteria for diagnosis of diabetes. In the absence of unequivocal hyperglycemia, results should be confirmed by repeat testing. In a patient with classic symptoms of hyperglycemia or hyperglycemic crisis, random plasma glucose results greater than or equal to 200 mg/dL meet the criteria for diagnosis of diabetes. Reference: Standards of Medical Care in Diabetes 2016, [place] Diabetes Association. Diabetes Care. 2016.39(Suppl 1). Performed By: #### 2 4321-2 ####[facility] THADDEUSWNCLIA [id number] [place] [address] [place] Potassium [Moles/Vol] 3.6 mmol/L Low 3.7-5.1 [facility] Comment on above: Order Comment: Speci men Type: BLOOD SPECIMENOrdering Facility: [facility] Address: [address] [place] [address] Performed By: #### 2 4321-2 ####[facility] [id number] [place] [address] [place] Sodium [Moles/Vol] 138 mmol/L Normal 136-144 [facility] Comment on above: Order Comment: Speci men Type: BLOOD SPECIMENOrdering Facility: [facility] Address: [address] [place] [address] Performed By: #### 2 4321-2 ####[facility] [id number] [place] [address] [place] Urea nitrogen [Mass/Vol] 21 mg/dL Normal 7-21 [facility] Comment on above: Order Comment: Speci men Type: BLOOD SPECIMENOrdering Facility: [facility] Address: [address] [place] [address] Performed By: #### 2 4321-2 ####[facility] [id number] [place] [address] [place] LIPID PANEL, NONFASTINGon Cholesterol [Mass/Vol] 194 mg/dL Normal <200 [facility] Comment on above: Order Comment: Speci men Type: BLOOD SPECIMENOrdering Facility: [facility] Address: [address] [place] [address] Result Comment: <200 mg/dL, Desirable 200-239 mg/dL, Borderline high >239 mg/dL, High Performed By: #### 3 016-3, LIPNF ####[facility] LABCLIA [id number] [address] OF [facility] HDL CHOLESTEROL, NF 43 mg/dL Normal >39 [facility] Comment on above: Order Comment: Keni men Type: BLOOD SPECIMENOrdering Facility: [facility] Address: [address] [place] [address] Result Comment: 40-5 9 mg/dL, Acceptable >59 mg/dL, High: Negative risk factor for coronary heart disease <40 mg/dL, Low: Positive risk factor for coronary heart disease Performed By: #### 3 016-3, LIPNF ####[facility] LABCLIA [id number] [address] LDL CHOLESTEROL, NF 121 mg/dL High <100 [facility] Comment on above: Order Comment: Cooper [facility] Type: BLOOD SPECIMENOrdering Facility: [facility] Address: [address] [place] [address] Result Comment: <100 mg/dL, Optimal 100-129 mg/dL, Near optimal/above optimal 130-159 mg/dL, Borderline high 160-189 mg/dL, High >189 mg/dL, Very high Secondary prevention optimal LDL Cholesterol levels are recommended to be < 70 mg/dL Performed By: #### 3 016-3, LIPNF ####[facility] LABCLIA [id number] [address] OF [place] LDL/HDL RATIO, NF 2.81 mg/dL High <2.54 [facility] Comment on above: Order Comment: [place] Type: BLOOD SPECIMENOrdering Facility: [facility] Address: [address] [place] [address] Result Comment: Refjose angel webbce: 1. National Cholesterol Education Program ATP III Guideline At-A-Glance Quick Desk Reference: National Heart, Lung, and Blood [place]. National Institutes of Health. 2001: NIH Publication No. 01-3305. 2. An International Atherosclerosis Society position paper: global recommendations for the management of dyslipidemia: executive summary, Atherosclerosis. 2014: 232(2):410-413. Performed By: #### 3 016-3, LIPNF ####[facility] LABCLIA [id number] [place] [address] [place] NON HDL CHOL, NF 151 mg/dL High <130 [facility] Comment on above: Order Comment: Speci men Type: BLOOD SPECIMENOrdering Facility: [facility] Address: [address] [place] [address] Result Comment: <130 mg/dL, Optimal 130-159 mg/dL, Near optimal/above optimal 160-189 mg/dL, Borderline high 190-219 mg/dL, High >219 mg/dL, Very high Secondary prevention optimal non HDL Cholesterol levels are recommended to be <100 mg/dL Performed By: #### 3 016-3, LIPNF ####[facility] LABCLIA [id number] [place] [address] [place] T CHOL/HDL RATIO NF 4.51 mg/dL Normal <5.10 [facility] Comment on above: Order Comment: Speci men Type: BLOOD SPECIMENOrdering Facility: [facility] Address: [address] [place] [address] Performed By: #### 3 016-3, LIPNF ####[facility] LABCLIA [id number] [place] [address] [place] TRIGLYCERIDES, NF 151 mg/dL High <150 [facility] Comment on above: Order Comment: Speci men Type: BLOOD SPECIMENOrdering Facility: [facility] Address: [address] [place] [address] Result Comment: <150 mg/dL, Normal 150-199 mg/dL, Borderline high 200-499 mg/dL, High >499 mg/dL, Very high Performed By: #### 3 016-3, LIPNF ####[facility] LABCLIA [id number] [place] [address] [place] VLDL CHOLESTEROL, NF 30 mg/dL High <30 [facility] Comment on above: Order Comment: Speci men Type: BLOOD SPECIMENOrdering Facility: [facility] Address: [address] [place], [place] [address] [address] Performed By: #### 3 016-3, LIPNF ####[facility] LABCLIA [id number] [place] [id number] [place] TSH SerPl-aCncon 10-24-2024 TSH Qn 3.220 m[IU]/L Normal 0.270-4.200 [facility] Comment on above: Order Comment: Speci men Type: BLOOD SPECIMENOrdering Facility: [facility] Address: [address] [place], [place] [address] [address] Performed By: #### 3 016-3, LIPNF ####[facility] LABCLIA [id number] [place] [address] [place] 12 Lead EKG performed by [facility] on 10-06-2024 12 Lead EKG performed by [facility] [address] [place] [address] 12 Lead EKG performed by [facility] 10/06/24 1355 MR#: [id number] Acct: [id number] Name: KATELYNN CAMPUZANO Rep #: [id number] : 1950 74 From: Akhil Muñoz MD Attending Dr: Dr. Akhil Muñoz MD Status: DEP A MB Ordering Dr: Akhil Muñoz MD Date: 10/06/24 [place] [facility] [place]: F C Admitted: BMS/12 Lead EKG performed by [facility] ECG Report Interpretation ---Sinus Rhythm -Poor R-wave progression -may be secondary to pulmonary disease consider old anterior infarct. Low voltage with rightward P-axis and rotation -possible pulmonary disease. ABNORMAL Electronically signed on 10/11/2024 at 08:32 by Akhil Muñoz [employer] Version [id number] 10/11/24 0837 Date Akhil Muñoz MD CC: Dr. Cholo Soriano MD Date Dictated: 10/06/241354 Date Transcribed: 10/06/241354 Crystal Slicer: [place] Signed Normal [facility] Cardiology Visit Reporton Cardiology Visit Report [facility] [address] [place] [address] OFFICE VISIT Date of Service: 10/06/24 MR#: [id number] Acct: [id number] Name: KATELYNN CAMPUZANO Rep #: [id number] : 1950 Provider: Dr. Akhil Muñoz MD Age/Sex: 74/F Location: [facility] Status: Signed HPI HPI History of Present Illness Details: Katelynn Campuzano is a 74-year-old lady with a history of hypertension, paroxysmal atrial fibrillation who underwent radiofrequency ablation in June 2017. She tells me that she may be scheduled for left shoulder surgery. She had been maintaining sinus rhythm while on flecainide she discontinued that and then went back into atrial fibrillation. In January of 2019 she was admitted to the hospital was noted to be in atrial for ablation with a rapid ventricular response rate she underwent DC cardioversion and her flecainide was restarted. She is done well since then. Her echocardiogram at that time demonstrated an ejection fraction of 60% with moderate left ventricular hypertrophy and right ventricular systolic pressure of 36 mmHg. She has remained on her current dose of flecainide and is tolerating it quite well. She is also on her anticoagulation and is not having any issues. She did undergo a heart catheterization in January 2021 demonstrating normal coronary arteries, ejection fraction of 60%, and mild pulmonary hypertension. She had complained of having more palpitations and presented to the emergency room was noted to be in atrial fibrillation with rapid ventricular response. Her flecainide was increased to 100 mg twice a day and she subsequently had a 24-hour Holter monitor. It demonstrated predominantly sinus rhythm with an average heart rate of 53 bpm. She has done remarkably well since denying any chest pain or shortness of breath or paroxysmal nocturnal dyspnea pedal edema she has had no neck arm or jaw discomfort suggest angina. Her physical exam here today is unremarkable her electrocardiogram demonstrates sinus rhythm with a rate of 60 bpm and no acute changes. Intake Vital Signs 09/22/23 10:09 01/12/24 12:09 10/06/24 13:49 Height 5 ft 7 in 5 ft 7 in 5 ft 7 in Weight: 257 lb BMI 40.2 BP 106/66 Blood Pressure Location Lt brachial Position Sitting Respiration 16 Pulse 63 Pulse Source Monitor Intake Visit Reasons: 1 Y FU Wine Manager Required: No Accompanied by: Self Is patient in pain?: No Allergies Penicillins Allergy (Verified 10/06/24 13:53) Hives Sulfa (Sulfonamide Antibiotics) Allergy (Verified 10/06/24 13:53) Hives Medications ???Medication ???Instructions ???Recorded ???Confirmed ???Type levothyroxine 25 mcg tablet 25 mcg PO DAILY thyroid 07/27/16 10/06/24 History cholecalciferol (vitamin D3) 50 2,000 unit PO QDAY deficiency 02/02/18 10/06/24 History mcg (2,000 unit) capsule acetaminophen 650 mg 650 mg PO QPM 01/15/21 10/06/24 History tablet,extended release (Tylenol 8 Hour) hydrochlorothiazide 25 mg tablet 25 mg PO QDAY HTN #90 tabs 01/15/21 10/06/24 Rx allopurinol 300 mg tablet 300 mg PO BID high uric acid 08/26/22 10/06/24 History cyanocobalamin (vitamin B-12) 1,000 mcg PO DAILY 08/26/22 10/06/24 History 1,000 mcg capsule flecainide 100 mg tablet See Rx Instructions .Route 12/02/23 10/06/24 Rx .COMPLEX #180 tabs Xarelto 20 mg tablet (rivaroxaban) See Rx Instructions .Route 01/12/24 10/06/24 Rx .COMPLEX #90 tabs cephalexin 500 mg capsule 500 mg PO Q6 #20 CAPSULES 01/12/24 10/06/24 Rx lisinopril 5 mg tablet 5 mg PO DAILY #90 TABLETS 05/09/24 10/06/24 Rx metoprolol tartrate 25 mg tablet 12.5 mg (1/2 x 25 mg) PO BID #90 05/09/24 10/06/24 Rx TABLETS Have you fallen in the past year?: Yes PFSH Medical History AVNRT (AV donna re-entry tachycardia) Body mass index (BMI) 35 or more Bradycardia COVID-19 Dyspnea on exertion Essential (primary) hypertension History of high risk medication treatment Hyperparathyroidism Hypothyroidism LVH (left ventricular hypertrophy) Mild pulmonary arterial systolic hypertension Obesity Obstructive sleep apnea Pain in left lower leg Palpitations Paroxysmal atrial fibrillation Tachycardia Thyroid nodule Surgical History History of cardiac radiofrequency ablation (07/2018) History of cardioversion (01/28/19) History of hip replacement History of hysterectomy History of knee replacement History of left heart catheterization (11/20/08) History of right and left heart catheterization (02/04/21) S/P fine needle aspiration (07/2021) Family History Father CVA (cerebral vascular accident) Atrial fibrillation Social (more content not included)... Normal [facility] Large Joint Arthro/Inj: L sh oulder jointon 09-09-2024 Murphy Olmos MD 09/09/2024 1:24 PM Large Joint Arthro/Inj: L shoulder joint 09/09/2024 11:15 AM The procedure site was prepped in the usual sterile fashion. Site: L shoulder joint Medications: 80 mg triamcinolone acetonide 40 mg/mL Anesthetics: 4 mL bupivacaine (PF) 0.25 % (2.5 mg/mL) Outcome: Tolerated well, no immediate complications Post-injection instructions were reviewed with the patient and the patient voiced understanding of these instructions. [facility] XR Chest PA and Lateralon IMPRESSION: No acute radiographic abnormality. Crystal Slicer: PSCB Transcribe Date/Time: Sep 09 2024 8:55A Dictated by : PHILIP UMANA DO This examination was interpreted and the report reviewed and electronically signed by: PHILIP UMANA DO on Sep 09 2024 8:59AM [facility] DIVISION OF RADIOLOGY * * *Final Report* * * DATE OF EXAM: Sep 09 2024 8:48AM WOX [id number] - XR CHEST 2V FRONTAL/LAT / PROCEDURE REASON: Acute cough * * * * Physician Interpretation * * * * EXAMINATION: CHEST RADIOGRAPH (2 VIEW FRONTAL & LATERAL) PATIENT/TECHNOLOGIST PROVIDED HISTORY: cough, congestion, sob and sore throat for 10 days CLINICAL HISTORY: 74 years old Female with Acute cough. 10 days of cough. MQ: XC2_6 EXAM DATE/TIME: 09/09/2024 8:48 AM COMPARISON: Radiographs 08/29/2024, 03/12/2022, 03/05/2021 CT chest 05/23/2024 RESULT: Lines, tubes, and devices: None. Lungs and pleura: Mild prominence of the lung markings in the infrahilar regions likely secondary to subsegmental atelectasis/scarring. No consolidation. No pleural effusion or pneumothorax. Cardiomediastinal silhouette: Stable mild cardiomegaly. Bones and soft tissues: Multilevel prominent anterior endplate osteophytes in the thoracic spine. Degenerative changes bilateral shoulders. DIVISION OF RADIOLOGY Provider, [facility] - 09/09/2024 * * *Final Report* * * DATE OF EXAM: Sep 09 2024 8:48AM WOX [id number] - XR CHEST 2V FRONTAL/LAT / PROCEDURE REASON: Acute cough * * * * Physician Interpretation * * * * EXAMINATION: CHEST RADIOGRAPH (2 VIEW FRONTAL & LATERAL) PATIENT/TECHNOLOGIST PROVIDED HISTORY: cough, congestion, sob and sore throat for 10 days CLINICAL HISTORY: 74 years old Female with Acute cough. 10 days of cough. MQ: XC2_6 EXAM DATE/TIME: 09/09/2024 8:48 AM COMPARISON: Radiographs 08/29/2024, 03/12/2022, 03/05/2021 CT chest 05/23/2024 RESULT: Lines, tubes, and devices: None. Lungs and pleura: Mild prominence of the lung markings in the infrahilar regions likely secondary to subsegmental atelectasis/scarring. No consolidation. No pleural effusion or pneumothorax. Cardiomediastinal silhouette: Stable mild cardiomegaly. Bones and soft tissues: Multilevel prominent anterior endplate osteophytes in the thoracic spine. Degenerative changes bilateral shoulders. IMPRESSION IMPRESSION: No acute radiographic abnormality. Crystal Slicer: SEBAS Transcribe Date/Time: Sep 09 2024 8:55A Dictated by : PHILIP UMANA DO This examination was interpreted and the report reviewed and electronically signed by: PHILIP UMANA DO on Sep 09 2024 8:59AM EST [facility] Radiology Study observation (narrative) [facility] XR Chest PA and LateralOrder ed By: [facility] Provider on 09-09-2024 [facility] XR SHLDR >/=3V AP/CHEKO AP/OTH R LTon 09-09-2024 XR SHLDR >/=3V AP/CHEKO AP/OTHR LT * * *Final Report* * * DATE OF EXAM: Sep 09 2024 9:47AM NITA [id number] - XR SHLDR >/=3V AP/CHEKO AP/OTHR LT / PROCEDURE REASON: multiple diagnoses * * * * Physician Interpretation * * * * EXAMINATION: XR SHLDR >/=3V AP/CHEKO AP/OTHR LT PATIENT/TECHNOLOGIST PROVIDED HISTORY: left shoulder pain did have a fall in november CLINICAL INFORMATION: 74 years old Female with Chronic left shoulder pain TECHNIQUE: XR SHLDR >/=3V AP/CHEKO AP/OTHR LT Laterality: LEFT Number of different views (projections): 3 COMPARISON: None RESULT: Moderate-severe degenerative change glenohumeral joint. Mild degenerative change acromioclavicular joint. Acromiohumeral interval appears maintained. Calcification adjacent to the greater tuberosity representing rotator cuff calcific tendinosis. No acute fracture. Several remote healed LEFT rib fractures. IMPRESSION: No acute osseous abnormality. Moderate-severe LEFT glenohumeral osteoarthritis. Rotator cuff calcific tendinosis. Crystal Slicer: [facility] Transcribe Date/Time: Sep 12 2024 5:44P Dictated by : PHILIP UMANA DO This examination was interpreted and the report reviewed and electronically signed by: PHILIP UMANA DO on Sep 12 2024 5:47PM EST [id number] [facility] XR Ribs - right Views and Ch est PAon 08-29-2024 IMPRESSION: No radiographic evidence of acute displaced right rib fracture. Crystal Slicer: [facility] Transcribe Date/Time: Aug 29 2024 11:44A Dictated by : PASCALE INTERIANO MD This examination was interpreted and the report reviewed and electronically signed by: PASCALE INTERIANO MD on Aug 29 2024 11:58AM [facility] DIVISION OF RADIOLOGY * * *Final Report* * * DATE OF EXAM: Aug 29 2024 11:43AM WOX 5244 - XR RIB/CHST 3V AP RIB/OBL/CHST R / PROCEDURE REASON: Pain in rib * * * * Physician Interpretation * * * * TITLE: XR RIB/CHST 3V AP RIB/OBL/CHST R CLINICAL INDICATION: Right-sided chest wall pain after a TECHNIQUE: Three-view right-sided radiographic rib series with inclusion of a single frontal view of the chest COMPARISON: Radiograph of the chest dated 03/12/2022 FINDINGS: Stable cardiomediastinal silhouette. No focal consolidation. No discernible pleural effusion or pneumothorax. No acute displaced right rib fracture identified. 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 Degenerative changes in the spine. DIVISION OF RADIOLOGY Provider, [facility] - 08/29/2024 * * *Final Report* * * DATE OF EXAM: Aug 29 2024 11:43AM WOX 5244 - XR RIB/CHST 3V AP RIB/OBL/CHST R / PROCEDURE REASON: Pain in rib * * * * Physician Interpretation * * * * TITLE: XR RIB/CHST 3V AP RIB/OBL/CHST R CLINICAL INDICATION: Right-sided chest wall pain after a TECHNIQUE: Three-view right-sided radiographic rib series with inclusion of a single frontal view of the chest COMPARISON: Radiograph of the chest dated 03/12/2022 FINDINGS: Stable cardiomediastinal silhouette. No focal consolidation. No discernible pleural effusion or pneumothorax. No acute displaced right rib fracture identified. 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 Degenerative changes in the spine. IMPRESSION IMPRESSION: No radiographic evidence of acute displaced right rib fracture. Crystal Slicer: [facility] Transcribe Date/Time: Aug 29 2024 11:44A Dictated by : PASCALE INTERIANO MD This examination was interpreted and the report reviewed and electronically signed by: PASCALE INTERIANO MD on Aug 29 2024 11:58AM EST [facility] Radiology Study observation (narrative) [facility] XR Ribs - right Views and Ch est PAOrdered By: Ccf Provider on 08-29-2024 [facility] Large Joint Arthro/Inj: L perales bacromial bursaon 05-03-2024 Zoey Chawla PA -C 05/03/2024 2:47 PM Large Joint Arthro/Inj: L subacromial bursa Informed Consent Consent Obtained: Verbal Dalton Protocol A moment to CARE was completed. SIGN IN Sign in communication not applicable due to emergent procedure. Personnel directly involved with the procedure wore the appropriate PPE. Special Equipment: N/A Patient/Surrogate Stated/Verified: Patient name, Date of , Relevant allergies and Intended procedure TIME OUT Intended patient and procedure match the source document(s). Consent documented and matches the intended procedure. Relevant labs, photos, and/or imaging studies have been reviewed. Correct side/site marked and visible. Medications required for procedure verified. No fire risk assessment and interventions applicable. No implant(s) inserted. 05/03/2024 2:46 PM The procedure site was prepped in the usual sterile fashion. Site: L subacromial bursa Medications: 6 mg betamethasone acetate-betamethasone sodium phosphate 6 mg/mL Anesthetics: 4 mL lidocaine (PF) 10 mg/mL (1 %) Outcome: Tolerated well, no immediate complications Post-injection instructions were reviewed with the patient and the patient voiced understanding of these instructions. [facility] CT Facial bones WO contrasto n 02-11-2024 [facility] XR Wrist - right PA and Late ral and Obliqueon 02-06-2024 IMPRESSION: Probable fracture of the neck of the navicular Crystal Slicer: [facility] Transcribe Date/Time: Feb 06 2024 10:53A Dictated by : ANGEL LOVETT DO This examination was interpreted and the report reviewed and electronically signed by: ANGEL LOVETT DO on Feb 06 2024 10:58AM EST DIVISION OF RADIOLOGY * * *Final Report* * * DATE OF EXAM: Feb 06 2024 9:51AM WOX 5271 - XR WRIST 3V PA/LAT/OBL RT / PROCEDURE REASON: Wrist pain, right * * * * Physician Interpretation * * * * EXAM(s): XR WRIST 3V PA/LAT/OBL RT..... HISTORY: 73 years old Clinical information: Wrist pain, right Pt. states she fell 1 day ago. Pain throughout RT wrist and into Rt hand. Pt. states she has a history of a fractured Rt pinky finger. TECHNIQUE: Images: XR WRIST 3V PA/LAT/OBL RT Comparison: None. RESULT: Findings: Marked narrowing first metacarpal carpal joint. There is a lucency through the neck of the navicular. DIVISION OF RADIOLOGY Provider, [facility] - 02/06/2024 * * *Final Report* * * DATE OF EXAM: Feb 06 2024 9:51AM WOX 5271 - XR WRIST 3V PA/LAT/OBL RT / PROCEDURE REASON: Wrist pain, right * * * * Physician Interpretation * * * * EXAM(s): XR WRIST 3V PA/LAT/OBL RT..... HISTORY: 73 years old Clinical information: Wrist pain, right Pt. states she fell 1 day ago. Pain throughout RT wrist and into Rt hand. Pt. states she has a history of a fractured Rt pinky finger. TECHNIQUE: Images: XR WRIST 3V PA/LAT/OBL RT Comparison: None. RESULT: Findings: Marked narrowing first metacarpal carpal joint. There is a lucency through the neck of the navicular. IMPRESSION IMPRESSION: Probable fracture of the neck of the navicular Crystal Slicer: [facility] Transcribe Date/Time: Feb 06 2024 10:53A Dictated by : ANGEL LOVETT DO This examination was interpreted and the report reviewed and electronically signed by: ANGEL LOVETT DO on Feb 06 2024 10:58AM EST [facility] Radiology Study observation (narrative) [facility] XR Wrist - right PA and Late ral and ObliqueOrdered By: Ccf Provider on 02-06-2024 [facility] BEBETO SCREENING W TOMOon 10-12 [facility] XR HAND GENERAL 3V PA/LAT/OB L RIGHTon 10-08-2023 [facility] XR Hand - right PA and Later al and Obliqueon 10-08-2023 IMPRESSION: Minimally displaced fractures of the base of the small finger proximal and middle phalanges as described. Crystal Slicer: [facility] Transcribe Date/Time: Oct 08 2023 1:10P Dictated by : EDI HUNT MD This examination was interpreted and the report reviewed and electronically signed by: EDI HUNT MD on Oct 08 2023 1:15PM [facility] DIVISION OF RADIOLOGY * * *Final Report* * * DATE OF EXAM: Oct 08 2023 1:06PM WOX 5346 - XR HAND 3V PA/LAT/OBL RT / PROCEDURE REASON: Hand pain, right * * * * Physician Interpretation * * * * EXAM(s): XR HAND 3V PA/LAT/OBL RT EXAM DATE/TIME: 10/08/2023 1:06 PM HISTORY: 73 years old Clinical information: Hand pain, right Right 5th digit pain x 10 days following a fall TECHNIQUE: Images: XR HAND 3V PA/LAT/OBL RT Comparison: None. RESULT: Findings: Bone density appears well-preserved. Minimally displaced fracture of the ulnar base of the small finger proximal phalanx with marginal intra-articular extension. Minimally displaced fracture of the volar base of the small finger middle phalanx. Equivocal intra-articular extension. Scattered DIP osteoarthritis most pronounced at the index and middle finger DIP joints. Mild thumb CMC osteoarthritis. DIVISION OF RADIOLOGY Provider, [facility] - 10/08/2023 * * *Final Report* * * DATE OF EXAM: Oct 08 2023 1:06PM WOX 5346 - XR HAND 3V PA/LAT/OBL RT / PROCEDURE REASON: Hand pain, right * * * * Physician Interpretation * * * * EXAM(s): XR HAND 3V PA/LAT/OBL RT EXAM DATE/TIME: 10/08/2023 1:06 PM HISTORY: 73 years old Clinical information: Hand pain, right Right 5th digit pain x 10 days following a fall TECHNIQUE: Images: XR HAND 3V PA/LAT/OBL RT Comparison: None. RESULT: Findings: Bone density appears well-preserved. Minimally displaced fracture of the ulnar base of the small finger proximal phalanx with marginal intra-articular extension. Minimally displaced fracture of the volar base of the small finger middle phalanx. Equivocal intra-articular extension. Scattered DIP osteoarthritis most pronounced at the index and middle finger DIP joints. Mild thumb CMC osteoarthritis. IMPRESSION IMPRESSION: Minimally displaced fractures of the base of the small finger proximal and middle phalanges as described. Crystal Slicer: [facility] Transcribe Date/Time: Oct 08 2023 1:10P Dictated by : EDI HUNT MD This examination was interpreted and the report reviewed and electronically signed by: EDI HUNT MD on Oct 08 2023 1:15PM EST [facility] Radiology Study observation (narrative) [facility] XR Hand - right PA and Later al and ObliqueOrdered By: Ccf Provider on 10-08-2023 [facility] Absolute lymphocyte counton 11-17-2022 Lymphocytes Auto (Unsp spec) [#/Vol] 1.33 10*3/uL 0.83-4.51 [facility] Work Phone: Basophil percentageon 2021 Basophils/100 WBC (Bld) 0.7 % 0-1 [facility] Work Phone: Chloride [Moles/Vol] 102 mmol/L 98-107 [facility] Work Phone: Eosinophils/100 WBC (Bld) 1.1 % 0-5 [facility] Work Phone: Glucose [Mass/Vol] 102 mg/dL 74-106 [facility] Work Phone: Comment on above: Fasting Glucose resu lt from 100 to 125 mg/dL suggests IMPAIRED HOMEOSTASIS per A.D.A. criteria. Neutrophils (Bld) [#/Vol] 5.5 10*3/uL 2.0-7.7 [facility] Work Phone: Neutrophils/100 WBC (Bld) 74.2 % 47-70 [facility] Work Phone: Potassium [Moles/Vol] 3.8 mmol/L 3.5-5.1 [facility] Work Phone: Sodium [Moles/Vol] 137 mmol/L 136-145 [facility] Work Phone: WBC (Bld) [#/Vol] 7.4 10*3/uL 4.4-11.0 [facility] Work Phone: Blood erythrocytes count (nu mber/volume)on 11-17-2022 RBC (Bld) [#/Vol] 4.08 10*6/uL 4.2-5.4 [facility] Work Phone: Blood hemoglobin measurement (mass/volume)on 11-17-2022 Hemoglobin (Bld) [Mass/Vol] 12.1 g/dL 12.0-15.0 [facility] Work Phone: [phone] Blood lymphocytes/100 leukoc yteson 11-17-2022 Lymphocytes/100 WBC (Bld) 18.0 % 19-41 [facility] Work Phone: [phone] Blood monocytes/100 leukocyt eson 11-17-2022 Monocytes/100 WBC (Bld) 5.6 % 0-10 [facility] Work Phone: Blood platelet mean volumeon 11-17-2022 Platelet mean volume (Bld) [Entitic vol] 10.2 fL 6.2-12.0 [facility] Work Phone: Determination of erythrocyte mean corpuscular volume (MCV)on 11-17-2022 MCV (RBC) [Entitic vol] 93.9 fL 81-99 [facility] Work Phone: [phone] Hematocrit Auto (Bld) [Volum e fraction]on 11-17-2022 Hematocrit (Bld) [Volume fraction] 38.3 % 37-47 [facility] Work Phone: Laboratory - Chemistry and C hemistry - challengeon 11-17-2022 CO2 [Moles/Vol] 26.0 mmol/L 21.0-32.0 [facility] Work Phone: Urea nitrogen/Creatinine [Mass ratio] 23.5 mg/mg 10-20 [facility] Work Phone: [phone] Laboratory - Hematology and Cell countson 11-17-2022 Erythrocyte distribution width (RBC) [Entitic vol] 48.4 fL 35.1-43.9 [facility] Work Phone: [phone] Erythrocyte distribution width (RBC) [Ratio] 14.0 % 11.6-14.6 [facility] Work Phone: [phone] Immature granulocytes/100 WBC (Bld) 0.400 % 0.0-0.9 [facility] Work Phone: [phone] Comment on above: IG% - Immature Granu locytes (promyelocytes, myelocytes and metamyelocytes) > 1% indicates that a LEFT SHIFT is Present. MCH (RBC) [Entitic mass] 29.7 pg 27.0-32.0 [facility] Work Phone: [phone] Nucleated RBC/100 WBC (Bld) [Ratio] 0 % 0-5 [facility] Work Phone: [phone] MCHC Auto (RBC) [Mass/Vol]on 11-17-2022 MCHC (RBC) [Mass/Vol] 31.6 g/dL 32-36 [facility] Work Phone: [phone] Panel Informationon 11-17 Estimated Creatinine Clearance Calc 48.72 ml/min [facility] Work Phone: [phone] Estimated GFR (MDRD) Amer 102 mL/min >60 [facility] Work Phone: [phone] Comment on above: GFR Calc Estimated GFR (MDRD) Non-Af Amer 84 mL/min >60 [facility] Work Phone: [phone] Comment on above: Non- GFR Calc Troponin I High Sensitivity 7 pg/mL 3.0-54.0 [facility] Work Phone: [phone] Comment on above: Please Note: New Wanda t Units and Gender Specific Reference Ranges. For more information see Policy Stat Procedure [employer] High Sensitivity Troponin (TNIH) and attachments. Platelets bldon 11-17-2022 Platelets (Bld) [#/Vol] 252 10*3/uL 150-450 [facility] Work Phone: [phone] Serum or plasma calcium francis urement (mass/volume)on 11-17-2022 Calcium [Mass/Vol] 9.4 mg/dL 8.5-10.1 [facility] Work Phone: Serum or plasma creatinine m easurement (mass/volume)on 11-17-2022 Creatinine [Mass/Vol] 0.72 mg/dL 0.55-1.02 [facility] Work Phone: Comment on above: The validity of the calculated GFR & GFRAA in patients over 70 years has not been determined. Clinical correlation is essential. Serum or plasma urea nitroge n measurement (mass/volume)on 11-17-2022 Urea nitrogen [Mass/Vol] 17 mg/dL 7-18 [facility] Work Phone: Thin prep Papanicolaou smear with manual screeningon 11-17-2022 Thin prep Papanicolaou smear with manual screening 9 -15 [facility] Work Phone: XR Pelvis and Hip - left AP and Lateral frogon 11-06-2022 IMPRESSION: Left hip grossly unremarkable. Crystal Slicer: [facility] Transcribe Date/Time: Nov 06 2022 11:09A Dictated by : JESSICA BURCH MD This examination was interpreted and the report reviewed and electronically signed by: JESSICA BURCH MD on Nov 06 2022 11:12AM [facility] DIVISION OF RADIOLOGY * * *Final Report* * * DATE OF EXAM: Nov 06 2022 10:36AM WOX 5351 - XR HIP 3V PELV+ AP/LAT LT / PROCEDURE REASON: Left hip pain * * * * Physician Interpretation * * * * HISTORY: Lateral left hip pain x 3-4 months without injury. Left hip pain . TECHNIQUE: XR HIP 3V PELV+ AP/LAT LT Laterality: LEFT Number of different views (projections): 3 COMPARISON: None RESULT: Left hip is grossly maintained with normal shape of the femoral head. No fracture identified. Degenerative changes in the SI joints and pubis symphysis. Total hip arthroplasty on the right side partially seen. Degenerative changes of the lower lumbar spine and remote compression fracture involving the L3 vertebral body. DIVISION OF RADIOLOGY [facility]06/[facility]22 * * *Final Report* * * DATE OF EXAM: Nov 06 2022 10:36AM WOX 5351 - XR HIP 3V PELV+ AP/LAT LT / PROCEDURE REASON: Left hip pain * * * * Physician Interpretation * * * * HISTORY: Lateral left hip pain x 3-4 months without injury. Left hip pain . TECHNIQUE: XR HIP 3V PELV+ AP/LAT LT Laterality: LEFT Number of different views (projections): 3 COMPARISON: None RESULT: Left hip is grossly maintained with normal shape of the femoral head. No fracture identified. Degenerative changes in the SI joints and pubis symphysis. Total hip arthroplasty on the right side partially seen. Degenerative changes of the lower lumbar spine and remote compression fracture involving the L3 vertebral body. IMPRESSION IMPRESSION: Left hip grossly unremarkable. Crystal Slicer: [facility] Transcribe Date/Time: Nov 06 2022 11:09A Dictated by : JESSICA BURCH MD This examination was interpreted and the report reviewed and electronically signed by: JESSICA BURCH MD on Nov 06 2022 11:12AM EST [facility] Radiology Study observation (narrative) [facility] XR Pelvis and Hip - left AP and Lateral frogOrdered By: Ccf Provider on 11-06-2022 [facility] BEBETO SCREENING W TOMOon 10-10 [facility] XR FOOT GENERAL 3V AP/LAT/OB L BILATERALon 05-19-[address] [facility] [address] CHEST WO IVCONon 05-05-20 [facility] US KIDNEY/BLADDERon 04-28-20 [facility] XR Ribs - right Views and Ch est PAon 03-12-2022 IMPRESSION: Suspected acute nondisplaced fracture of the right lateral fifth rib. Correlation with physical examination for possible point tenderness in this region is requested. Crystal [facility]licer[facility] Transcribe Date/Time: Mar 12 2022 11:55A Dictated by : PASCALE INTERIANO MD This examination was interpreted and the report reviewed and electronically signed by: PASCALE INTERIANO MD on Mar 12 2022 11:58AM EST [id number] SE_DIVISION OF RADIOLOGY * * *Final Report* * * DATE [...] pleural effusion or pneumothorax. Stable cardiomediastinal silhouette. [id number] SE_DIVISION OF RADIOLOGY [facility] - 03/12/2022 * * *Final Report* * * DATE [...] pleural effusion or pneumothorax. Stable cardiomediastinal silhouette. IMPRESSION IMPRESSION: Suspected acute nondisplaced fracture of the right lateral fifth rib. Correlation with physical examination for possible point tenderness in this region is requested. Crystal Slicer: [facility] Transcribe Date/Time: Mar 12 2022 11:55A Dictated by : PASCALE INTERIANO MD This examination was interpreted and the report reviewed and electronically signed by: PASCALE INTERIANO MD on Mar 12 2022 11:58AM EST [facility] Radiology Study observation (narrative) [facility] XR Ribs - right Views and Ch est PAOrdered By: Ccf Provider on 03-12-2022 [facility] XR PELVIS 1V APon 02-25-2022 [facility] Office Visiton 08-06-2017 Fall risk assessment No Invalid Interpretation Code [facility] Work Phone: [phone] Protein mass conc Done Invalid Interpretation Code [facility] Work Phone: [phone] Office Visiton 02-06-2017 Dietary management education, guidance, and counseling (procedure) yes Invalid Interpretation Code [facility] Work Phone: [phone] Documentation of current medications (procedure) Done Invalid Interpretation Code [employer] Work Phone: [phone] Replaced Document: Anselmo Bhaktaon 11-10-2016 EKG QRS axis 31 deg Invalid Interpretation Code [employer] [employer] Phone: electrocardiogram interpretation Atrial fibrillation Low voltage -possible pulmonary disease. ABNORMAL Invalid Interpretation Code [employer] Work Phone: [phone] GE use only - for [employer] import when terms are not otherwise specified 431 ms Invalid Interpretation Code [employer] Work Phone: [phone] Interpretation Atrial fibrillation Low voltage -possible pulmonary disease. ABNORMAL Invalid Interpretation Code [employer] Work Phone: [phone] P [place] 1 deg Invalid Interpretation Code [employer] Work Phone: [phone] P wave axis, electrocardiogram 1 deg Invalid Interpretation Code [employer] Work Phone: [phone] Interval 0 ms Invalid Interpretation Code [employer] Work Phone: [phone] interval, electrocardiogram 0 ms Invalid Interpretation Code [employer] Work Phone: [phone] Pulse (Heart Rate) 78 /min Invalid Interpretation Code [employer] [facility] Phone: [phone] QRS axis, electrocardiogram 31 deg Invalid Interpretation Code [employer] Work Phone: [phone] QRS Duration 108 ms Invalid Interpretation Code [facility] Phone: [phone] QRS duration, electrocardiogram 108 ms Invalid Interpretation Code [employer] Work Phone: [phone] QT Interval new path ms Invalid Interpretation Code [employer] Work Phone: [phone] QT interval, electrocardiogram new path ms Invalid Interpretation Code [employer] Work Phone: QTc Cast[place] 431 ms Invalid Interpretation Code [employer] Phone: T [place] 29 deg Invalid Interpretation Code [employer] Work Phone: T wave axis, electrocardiogram 29 deg Invalid Interpretation Code [employer] [facility] Phone: Lab Report: BNP,B-Type NATRI URETIC PEPTIDEon 09-04-2016 BNP 69.4 pg/mL Invalid Interpretation Code 0-100 [facility] Work Phone: [phone] Office Visiton 07-31-2016 Tobacco smoking status NHIS Never smoker Invalid Interpretation Code [facility] Work Phone: [phone] Tobacco use CPHS Never smoker Invalid Interpretation Code [facility] Work Phone: [phone] Clinical Lists Update: 07-09-2016 Alanine aminotransferase (ALT) 20 U/L Invalid Interpretation Code [facility] Work Phone: [phone] Albumin 3.4 g/dL Invalid Interpretation Code [facility] Work Phone: [phone] Alkaline phosphatase (ALP) 88 U/L Invalid Interpretation Code [facility] Work Phone: [phone] ALP enzyme act/vol (Bld) 88 U/L Invalid Interpretation Code [facility] Work Phone: [phone] Aspartate aminotransferase (AST) 17 U/L Invalid Interpretation Code [facility] Work Phone: [phone] Bilirubin (total) 2.90 mg/dL High [facility] Work Phone: [phone] Erythrocytes (RBC) 3.99 10*6/uL Low [facility] Work Phone: [phone] Globulin 3.1 g/dL Invalid Interpretation Code [facility] Work Phone: [phone] Hematocrit (HCT) 36.1 % Low [facility] Work Phone: [phone] Hemoglobin (HGB) 11.8 g/dL Low [facility] Work Phone: [phone] Platelets 225 10*3/mm3 Invalid Interpretation Code [facility] Work Phone: [phone] Protein 6.5 g/dL Invalid Interpretation Code [facility] Work Phone: [phone] WBC (Leukocytes) 7.0 10*3/uL Invalid Interpretation Code [facility] Work Phone: [phone] Clinical Lists Update: Pre 07-08-2016 Anion gap 9 mmol/L Invalid Interpretation Code [facility] Work Phone: [phone] Anion gap 4 molar conc 9 Invalid Interpretation Code [facility] Work Phone: BUN/Creatinine Ratio 29.4 mg/mg High [facility] Work Phone: [phone] Calcium 8.4 mg/dL Low [facility] Work Phone: [phone] Chloride 99 mmol/L Invalid Interpretation Code [facility] Work Phone: [phone] CO2 24 mmol/L Invalid Interpretation Code [facility] Work Phone: [phone] CO2 ppres (BldV) 24 mmol/L Invalid Interpretation Code [facility] Work Phone: [phone] Creatinine 0.78 mg/dL Invalid Interpretation Code [facility] Work Phone: [phone] Glucose 113 mg/dL High [facility] Work Phone: [phone] Glucose mass conc 113 mg/dL High [facility] Work Phone: [phone] Potassium 3.5 mmol/L Invalid Interpretation Code [facility] Work Phone: [phone] Sodium 132 mmol/L Low [facility] Work Phone: [phone] Urea nitrogen 23 mg/dL High [facility] Work Phone: [phone] Clinical Lists Update: Clini didier Noteon 02-11-2016 Left ventricular Ejection fraction 65 % Invalid Interpretation Code [facility] Work Phone: [phone] Office Visiton 02-06-2015 cardiac risk group B Invalid Interpretation Code [facility] Work Phone: [phone] General cardiovascular disease 10Y risk [#] [place] Not enough information Invalid Interpretation Code [facility] Work Phone: [phone] Tobacco smoking status NHIS Never Invalid Interpretation Code [facility] Work Phone: [phone] Vital Signs Date Time Vital Sign Value Performing Clinician Facility 07-26-2025 11:48-0400 Diastolic blood pressure 62 mm[Hg] Hedy Gamez MD Work Phone: [facility] 07-26-2025 11:48-0400 Heart rate 54 /min Hedy Gamez MD Work Phone: [facility] 07-26-2025 11:48-0400 Respiratory rate 18 /min Hedy Gamez MD Work Phone: [facility] 07-26-2025 11:48-0400 SaO2% (BldA) [Mass fraction] 98 % Hedy Gamez MD Work Phone: [facility] 07-26-2025 11:48-0400 Systolic blood pressure 140 mm[Hg] Hedy Gamez MD Work Phone: [facility] 07-26-2025 11:28-0400 Body temperature 98.1 [degF] Hedy Gamez MD Work Phone: [facility] 07-26-2025 09:43-0400 Body height 170.2 cm Hedy Gamez MD Work Phone: [facility] 07-26-2025 09:43-0400 Body mass index (BMI) [Ratio] 39.16 kg/m2 Hedy Gamez MD Work Phone: [facility] 07-26-2025 09:43-0400 Body weight 113.4 kg Hedy Gamez MD Work Phone: [facility] 06-22-2025 10:04-0400 Body mass index (BMI) [Ratio] 40.31 kg/m2 Cholo Soriano MD Work Phone: [facility] 06-22-2025 10:04-0400 Body weight 116.76 kg Cholo Soriano MD Work Phone: [facility] 06-22-2025 10:04-0400 Diastolic blood pressure 72 mm[Hg] Cholo Soriano MD Work Phone: [facility] 06-22-2025 10:04-0400 Heart rate 56 /min Cholo Soriano MD Work Phone: [facility] 06-22-2025 10:04-0400 Respiratory rate 16 /min Cholo Soriano MD Work Phone: [facility] 06-22-2025 10:04-0400 Systolic blood pressure 110 mm[Hg] Cholo Soriano MD Work Phone: [facility] 06-17-2025 11:04-0400 Body mass index (BMI) [Ratio] 40.05 kg/m2 Nancy Swenson APRN.DEBURRER MACHINE Work Phone: [facility] 06-17-2025 11:04-0400 Body temperature 97.9 [degF] Nancy Swenson APRN.DEBURRER MACHINE Work Phone: [facility] 06-17-2025 11:04-0400 Body weight 116 kg Nancy Swenson APRN.DEBURRER MACHINE Work Phone: [facility] 06-17-2025 11:04-0400 Diastolic blood pressure 75 mm[Hg] Nancy Swenson APRN.DEBURRER MACHINE Work Phone: [facility] 06-17-2025 11:04-0400 Heart rate 59 /min Nancy Swenson APRN.DEBURRER MACHINE Work Phone: [facility] 06-17-2025 11:04-0400 Respiratory rate 20 /min Nancy Swenson APRN.DEBURRER MACHINE Work Phone: [facility] 06-17-2025 11:04-0400 SaO2% (BldA) [Mass fraction] 98 % Nancy Swenson APRN.DEBURRER MACHINE Work Phone: [facility] 06-17-2025 11:04-0400 Systolic blood pressure 113 mm[Hg] Nancy Swenson APRN.DEBURRER MACHINE Work Phone: [facility] 06-01-2025 13:48-0400 Body height 170.2 cm Ronal Bell APRN.DEBURRER MACHINE Work Phone: [facility] 06-01-2025 13:48-0400 Body mass index (BMI) [Ratio] 40.1 kg/m2 Ronal Bell APRN.DEBURRER MACHINE Work Phone: [facility] 06-01-2025 13:48-0400 Body weight 116.12 kg Ronal Bell APRN.DEBURRER MACHINE Work Phone: [facility] 06-01-2025 13:48-0400 Diastolic blood pressure 76 mm[Hg] Ronal Hritz 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DEBURRER MACHINE Work Phone: [facility] 06-01-2025 13:48-0400 Heart rate 67 /min Ronal Hritz 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DEBURRER MACHINE Work Phone: [facility] 06-01-2025 13:48-0400 SaO2% (BldA) [Mass fraction] 97 % Ronal Hritz 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DEBURRER MACHINE Work Phone: [facility] 06-01-2025 13:48-0400 Systolic blood pressure 114 mm[Hg] Ronal Hritz 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DEBURRER MACHINE Work Phone: [facility] 05-15-2025 07:53-0400 Body height 170.2 cm Cholo Soriano MD Work Phone: [facility] 05-15-2025 07:53-0400 Body mass index (BMI) [Ratio] 40.16 kg/m2 Cholo Soriano MD Work Phone: [facility] 05-15-2025 07:53-0400 Body weight 116.3 kg Cholo Soriano MD Work Phone: [facility] 05-15-2025 07:53-0400 Diastolic blood pressure 70 mm[Hg] Cholo Soriano MD Work Phone: [facility] 05-15-2025 07:53-0400 Heart rate 60 /min Cholo Soriano MD Work Phone: [facility] 05-15-2025 07:53-0400 Respiratory rate 16 /min Cholo Soriano MD Work Phone: [facility] 05-15-2025 07:53-0400 Systolic blood pressure 110 mm[Hg] Cholo Soriano MD Work Phone: [facility] 04-28-2025 09:06-0400 Body mass index (BMI) [Ratio] 40.41 kg/m2 Cholo Soriano MD Work Phone: [facility] 04-28-2025 09:06-0400 Body weight 117.03 kg Cholo Soriano MD Work Phone: [facility] 04-28-2025 09:06-0400 Diastolic blood pressure 64 mm[Hg] Cholo Soriano MD Work Phone: [facility] 04-28-2025 09:06-0400 Heart rate 60 /min Cholo Soriano MD Work Phone: [facility] 04-28-2025 09:06-0400 Respiratory rate 18 /min Cholo Soriano MD Work Phone: [facility] 04-28-2025 09:06-0400 Systolic blood pressure 104 mm[Hg] Cholo Soriano MD Work Phone: [facility] 04-10-2025 07:38-0400 Body temperature 98.1 [degF] Dr. Cholo Soriano MD Work Phone: [facility] 04-10-2025 07:38-0400 Diastolic blood pressure 93 mm[Hg] Dr. Cholo Soriano MD Work Phone: [facility] 04-10-2025 07:38-0400 Heart rate 78 /min Dr. Cholo Soriano MD Work Phone: [facility] 04-10-2025 07:38-0400 Respiratory rate 19 /min Dr. Cholo Soriano MD Work Phone: [facility] 04-10-2025 07:38-0400 SaO2% (BldA) [Mass fraction] 97 % Dr. Cholo Soriano MD Work Phone: [facility] 04-10-2025 07:38-0400 Systolic blood pressure 117 mm[Hg] Dr. Cholo Soriano MD Work Phone: [facility] 04-10-2025 07:08-0400 Body height 170.[address] Cholo Soriano MD Work Phone: [facility] 04-10-2025 07:08-0400 Body mass index (BMI) [Ratio] 39.6 kg/m2 Dr. Cholo Soriano MD Work Phone: [facility] 04-10-2025 07:08-0400 Body weight 114.[address] Cholo Soriano MD Work Phone: [facility] 04-06-2025 07:48-0400 Body mass index (BMI) [Ratio] 39.22 kg/m2 Starla Swank 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DEBURRER MACHINE Work Phone: [facility] 04-06-2025 07:48-0400 Body temperature 97.39 [degF] Starla Swank 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DEBURRER MACHINE Work Phone: [facility] 04-06-2025 07:48-0400 Body weight 117 kg Starla Swank 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DEBURRER MACHINE Work Phone: [facility] 04-06-2025 07:48-0400 Diastolic blood pressure 62 mm[Hg] Starla Swank 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DEBURRER MACHINE Work Phone: [facility] 04-06-2025 07:48-0400 Heart rate 61 /min Starla Swank 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DEBURRER MACHINE Work Phone: [facility] 04-06-2025 07:48-0400 Respiratory rate 20 /min Starla Swank 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DEBURRER MACHINE Work Phone: [facility] 04-06-2025 07:48-0400 SaO2% (BldA) [Mass fraction] 97 % Starla Swank 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DEBURRER MACHINE Work Phone: [facility] 04-06-2025 07:48-0400 Systolic blood pressure 135 mm[Hg] Starla Swank 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DEBURRER MACHINE Work Phone: [facility] 01-20-2025 10:51-0500 Body mass index (BMI) [Ratio] 38.47 kg/m2 Cholo Soriano MD Work Phone: [facility] 01-20-2025 10:51-0500 Body weight 114.76 kg Cholo Soriano MD Work Phone: [facility] 01-20-2025 10:51-0500 Diastolic blood pressure 70 mm[Hg] Cholo Soriano MD Work Phone: [facility] 01-20-2025 10:51-0500 Heart rate 72 /min Cholo Soriano MD Work Phone: [facility] 01-20-2025 10:51-0500 Systolic blood pressure 124 mm[Hg] Cholo Soriano MD Work Phone: [facility] 12-23-2024 14:01-0500 Body mass index (BMI) [Ratio] 38.92 kg/m2 Alta Moser 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DEBURRER MACHINE Work Phone: [facility] 12-23-2024 14:01-0500 Body temperature 99.81 [degF] Alta Moser 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DEBURRER MACHINE Work Phone: [facility] 12-23-2024 14:01-0500 Body weight 116.1 kg Alta Moser 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DEBURRER MACHINE Work Phone: [facility] 12-23-2024 14:01-0500 Diastolic blood pressure 73 mm[Hg] Alta Moser 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DEBURRER MACHINE Work Phone: [facility] 12-23-2024 14:01-0500 Heart rate 66 /min Alta Moser 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DEBURRER MACHINE Work Phone: [facility] 12-23-2024 14:01-0500 Respiratory rate 22 /min Alta Moser 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DEBURRER MACHINE Work Phone: [facility] 12-23-2024 14:01-0500 SaO2% (BldA) [Mass fraction] 96 % Alta Moser 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DEBURRER MACHINE Work Phone: [facility] 12-23-2024 14:01-0500 Systolic blood pressure 119 mm[Hg] Alta Moser 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DEBURRER MACHINE Work Phone: [facility] 11-15-2024 08:13-0500 Body mass index (BMI) [Ratio] 38.55 kg/m2 Collette Mendes 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DEBURRER MACHINE Work Phone: [facility] 11-15-2024 08:13-0500 Body temperature 97.59 [degF] Collette Cinthya 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DEBURRER MACHINE Work Phone: [facility] 11-15-2024 08:13-0500 Body weight 115 kg Collette Cinthya 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DEBURRER MACHINE Work Phone: [facility] 11-15-2024 08:13-0500 Diastolic blood pressure 78 mm[Hg] Collette Cinthya 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DEBURRER MACHINE Work Phone: [facility] 11-15-2024 08:13-0500 Heart rate 56 /min Collette Cinthya 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DEBURRER MACHINE Work Phone: [facility] 11-15-2024 08:13-0500 Respiratory rate 20 /min Collette Cinthya 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DEBURRER MACHINE Work Phone: [facility] 11-15-2024 08:13-0500 SaO2% (BldA) [Mass fraction] 98 % Collette Cinthya 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DEBURRER MACHINE Work Phone: [facility] 11-15-2024 08:13-0500 Systolic blood pressure 135 mm[Hg] Collette Cinthya 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DEBURRER MACHINE Work Phone: [facility] 11-07-2024 07:41-0500 Body mass index (BMI) [Ratio] 38.92 kg/m2 Hilda KELLER-C Work Phone: [facility] 11-07-2024 07:41-0500 Body temperature 97 [degF] Hilda KELLER-C Work Phone: [facility] 11-07-2024 07:41-0500 Body weight 116.12 kg Hilda KELLER-C Work Phone: [facility] 11-07-2024 07:41-0500 Diastolic blood pressure 80 mm[Hg] Hilda KELLER-C Work Phone: [facility] 11-07-2024 07:41-0500 Heart rate 61 /min Hilda Snyder PA-C Work Phone: [facility] 11-07-2024 07:41-0500 Respiratory rate 18 /min Hilda KELLER-C Work Phone: [facility] 11-07-2024 07:41-0500 SaO2% (BldA) [Mass fraction] 96 % Hilda KELLER-C Work Phone: [facility] 11-07-2024 07:41-0500 Systolic blood pressure 122 mm[Hg] Hilda Snyder PA-C Work Phone: [facility] 09-09-2024 08:30-0400 Body mass index (BMI) [Ratio] 39.22 kg/m2 Lawrence Moomaw 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DEBURRER MACHINE Work Phone: [facility] 09-09-2024 08:30-0400 Body temperature 97.3 [degF] Lawrence Moomaw 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DEBURRER MACHINE Work Phone: [facility] 09-09-2024 08:30-0400 Body weight 117 kg Lawrence Moomaw 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DEBURRER MACHINE Work Phone: [facility] 09-09-2024 08:30-0400 Diastolic blood pressure 84 mm[Hg] Lawrence Moomaw 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DEBURRER MACHINE Work Phone: [facility] 09-09-2024 08:30-0400 Heart rate 58 /min Lawrence Moomaw 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DEBURRER MACHINE Work Phone: [facility] 09-09-2024 08:30-0400 Respiratory rate 20 /min Lawrence Moomaw 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DEBURRER MACHINE Work Phone: [facility] 09-09-2024 08:30-0400 SaO2% (BldA) [Mass fraction] 98 % Lawrence Moomaw 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DEBURRER MACHINE Work Phone: [facility] 09-09-2024 08:30-0400 Systolic blood pressure 158 mm[Hg] Lawrence Moomaw 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DEBURRER MACHINE Work Phone: [facility] 08-29-2024 10:33-0400 Body mass index (BMI) [Ratio] 39.39 kg/m2 Nancy Swenson 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DEBURRER MACHINE Work Phone: [facility] 08-29-2024 10:33-0400 Body temperature 98.01 [degF] Nancy Swenson APRN.DEBURRER MACHINE Work Phone: [facility] 08-29-2024 10:33-0400 Body weight 117.5 kg Nancy Swenson APRN.DEBURRER MACHINE Work Phone: [facility] 08-29-2024 10:33-0400 Diastolic blood pressure 70 mm[Hg] Nancy Swenson APRN.DEBURRER MACHINE Work Phone: [facility] 08-29-2024 10:33-0400 Heart rate 70 /min Nancy Swenson APRN.DEBURRER MACHINE Work Phone: [facility] 08-29-2024 10:33-0400 Respiratory rate 21 /min Nancy Swenson APRN.DEBURRER MACHINE Work Phone: [facility] 08-29-2024 10:33-0400 SaO2% (BldA) [Mass fraction] 95 % Nancy Swenson APRN.DEBURRER MACHINE Work Phone: [facility] 08-29-2024 10:33-0400 Systolic blood pressure 138 mm[Hg] Nancy Swenson APRN.DEBURRER MACHINE Work Phone: [facility] 08-11-2024 07:32-0400 Body mass index (BMI) [Ratio] 38.38 kg/m2 Nancy Swenson APRN.DEBURRER MACHINE Work Phone: [facility] 08-11-2024 07:32-0400 Body temperature 97.11 [degF] Nancy Swenson APRN.DEBURRER MACHINE Work Phone: [facility] 08-11-2024 07:32-0400 Body weight 114.5 kg Nancy Swenson APRN.DEBURRER MACHINE Work Phone: [facility] 08-11-2024 07:32-0400 Diastolic blood pressure 74 mm[Hg] Nancy Swenson APRN.DEBURRER MACHINE Work Phone: [facility] 08-11-2024 07:32-0400 Heart rate 61 /min Nancy Swenson APRN.DEBURRER MACHINE Work Phone: [facility] 08-11-2024 07:32-0400 Respiratory rate 18 /min Nancy Swenson APRN.DEBURRER MACHINE Work Phone: [facility] 08-11-2024 07:32-0400 SaO2% (BldA) [Mass fraction] 97 % Nancy Swenson APRN.DEBURRER MACHINE Work Phone: [facility] 08-11-2024 07:32-0400 Systolic blood pressure 131 mm[Hg] Nancy Swenson APRN.DEBURRER MACHINE Work Phone: [facility] 06-15-2024 07:55-0400 Body mass index (BMI) [Ratio] 39.12 kg/m2 Natalia Wood MD Work Phone: [facility] 06-15-2024 07:55-0400 Body weight 116.7 kg Natalia Wood MD Work Phone: [facility] 06-15-2024 07:55-0400 Diastolic blood pressure 72 mm[Hg] Natalia Wood MD Work Phone: [facility] 06-15-2024 07:55-0400 Heart rate 56 /min Natalia Wood MD Work Phone: [facility] 06-15-2024 07:55-0400 SaO2% (BldA) [Mass fraction] 98 % Natalia Wood MD Work Phone: [facility] 06-15-2024 07:55-0400 Systolic blood pressure 115 mm[Hg] Natalia Wood MD Work Phone: [facility] 05-06-2024 08:01-0400 Body height 172.7 cm Cholo Soriano MD Work Phone: [facility] 05-06-2024 08:01-0400 Body mass index (BMI) [Ratio] 39.23 kg/m2 Cholo Soriano MD Work Phone: [facility] 05-06-2024 08:01-0400 Body weight 117.03 kg Cholo Soriano MD Work Phone: [facility] 05-06-2024 08:01-0400 Diastolic blood pressure 64 mm[Hg] Cholo Soriano MD Work Phone: [facility] 05-06-2024 08:01-0400 Heart rate 60 /min Cholo Soriano MD Work Phone: [facility] 05-06-2024 08:01-0400 Respiratory rate 16 /min Cholo Soriano MD Work Phone: [facility] 05-06-2024 08:01-0400 Systolic blood pressure 118 mm[Hg] Cholo Soriano MD Work Phone: [facility] 02-10-2024 08:37-0400 Body weight 117.48 kg Cholo Soriano MD Work Phone: [facility] 02-10-2024 08:37-0400 Diastolic blood pressure 82 mm[Hg] Cholo Soriano MD Work Phone: [facility] 02-10-2024 08:37-0400 Heart rate 60 /min Cholo Soriano MD Work Phone: [facility] 02-10-2024 08:37-0400 Respiratory rate 16 /min Cholo Soriano MD Work Phone: [facility] 02-10-2024 08:37-0400 Systolic blood pressure 138 mm[Hg] Cholo Soriano MD Work Phone: [facility] 02-06-2024 09:20-0400 Body temperature 97.39 [degF] Guido Aguilar MD Work Phone: [facility] 02-06-2024 09:20-0400 Body weight 117.7 kg Guido Aguilar MD Work Phone: [facility] 02-06-2024 09:20-0400 Diastolic blood pressure 72 mm[Hg] Guido Aguilar MD Work Phone: [facility] 02-06-2024 09:20-0400 Heart rate 61 /min Guido Aguilar MD Work Phone: [facility] 02-06-2024 09:20-0400 Respiratory rate 18 /min Guido Aguilar MD Work Phone: [facility] 02-06-2024 09:20-0400 SaO2% (BldA) [Mass fraction] 98 % Guido Aguilar MD Work Phone: [facility] 02-06-2024 09:20-0400 Systolic blood pressure 122 mm[Hg] Guido Aguilar MD Work Phone: [facility] 01-12-2024 14:04-0500 Body temperature 98 [degF] Dr. Cholo Soriano Work Phone: [facility] 01-12-2024 14:04-0500 Diastolic blood pressure 74 mm[Hg] Dr. Cholo Soriano Work Phone: [facility] 01-12-2024 14:04-0500 Heart rate 72 /min Dr. Cholo Soriano Work Phone: [facility] 01-12-2024 14:04-0500 Respiratory rate 16 /min Dr. Cholo Soriano Work Phone: [facility] 01-12-2024 14:04-0500 SaO2% (BldA) [Mass fraction] 99 % Dr. Cholo Soriano Work Phone: [facility] 01-12-2024 14:04-0500 Systolic blood pressure 130 mm[Hg] Dr. Cholo Soriano Work Phone: [facility] 01-12-2024 12:09-0500 Body height 170.[address] Cholo Soriano Work Phone: [facility] 01-11-2024 15:36-0500 Body temperature 97.7 [degF] Denita Martinez APRN.DEBURRER MACHINE Work Phone: [facility] 01-11-2024 15:36-0500 Body weight 117.03 kg Denita Martinez APRN.DEBURRER MACHINE Work Phone: [facility] 01-11-2024 15:36-0500 Diastolic blood pressure 82 mm[Hg] Denita Martinez 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DEBURRER MACHINE Work Phone: [facility] 01-11-2024 15:36-0500 Heart rate 61 /min Denita Martinez 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DEBURRER MACHINE Work Phone: [facility] 01-11-2024 15:36-0500 Respiratory rate 18 /min Denita Martinez 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DEBURRER MACHINE Work Phone: [facility] 01-11-2024 15:36-0500 SaO2% (BldA) [Mass fraction] 98 % Denita Martinez 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DEBURRER MACHINE Work Phone: [facility] 01-11-2024 15:36-0500 Systolic blood pressure 147 mm[Hg] Denita Martinez 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DEBURRER MACHINE Work Phone: [facility] 12-12-2023 10:14-0500 Body height 170.[address] Cholo Soriano Work Phone: [facility] 12-12-2023 10:14-0500 Body temperature 96.7 [degF] Dr. Cholo Soriano Work Phone: [facility] 12-12-2023 10:14-0500 Diastolic blood pressure 66 mm[Hg] Dr. Cholo Soriano Work Phone: [facility] 12-12-2023 10:14-0500 Heart rate 57 /min Dr. Cholo Soriano Work Phone: [facility] 12-12-2023 10:14-0500 Respiratory rate 16 /min Dr. Cholo Soriano Work Phone: [facility] 12-12-2023 10:14-0500 SaO2% (BldA) [Mass fraction] 98 % Dr. Cholo Soriano Work Phone: [facility] 12-12-2023 10:14-0500 Systolic blood pressure 149 mm[Hg] Dr. Cholo Soriano Work Phone: [facility] 10-13-2023 08:06-0500 Body weight 116.12 kg Magda Moise MD Work Phone: [facility] 10-13-2023 08:06-0500 Diastolic blood pressure 82 mm[Hg] Magda Moise MD Work Phone: [facility] 10-13-2023 08:06-0500 Systolic blood pressure 126 mm[Hg] Magda Moise MD Work Phone: [facility] 10-08-2023 12:48-0500 Body temperature 97 [degF] Alta Moser 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DEBURRER MACHINE Work Phone: [facility] 10-08-2023 12:48-0500 Body weight 118.84 kg Alta Moser 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DEBURRER MACHINE Work Phone: [facility] 10-08-2023 12:48-0500 Diastolic blood pressure 62 mm[Hg] Alta Moser 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DEBURRER MACHINE Work Phone: [facility] 10-08-2023 12:48-0500 Heart rate 56 /min Alta Moser 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DEBURRER MACHINE Work Phone: [facility] 10-08-2023 12:48-0500 Respiratory rate 16 /min Alta Moser 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DEBURRER MACHINE Work Phone: [facility] 10-08-2023 12:48-0500 SaO2% (BldA) [Mass fraction] 98 % Alta Moser 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DEBURRER MACHINE Work Phone: [facility] 10-08-2023 12:48-0500 Systolic blood pressure 118 mm[Hg] Alta Moser 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DEBURRER MACHINE Work Phone: [facility] 09-22-2023 10:09-0400 Body mass index (BMI) [Ratio] 39.9 kg/m2 Dr. Cholo Soriano Work Phone: [facility] 09-22-2023 10:09-0400 Body weight 115.[address] Cholo Soriano Work Phone: [facility] 09-22-2023 10:09-0400 Diastolic blood pressure 64 mm[Hg] Dr. Cholo Soriano Work Phone: [facility] 09-22-2023 10:09-0400 Heart rate 54 /min Dr. Cholo Soriano Work Phone: [facility] 09-22-2023 10:09-0400 Respiratory rate 16 /min Dr. Cholo Soriano Work Phone: [facility] 09-22-2023 10:09-0400 Systolic blood pressure 118 mm[Hg] Dr. Cholo Soriano Work Phone: [facility] 05-19-2023 10:41-0400 Body height 171.5 cm Natalia Wood MD Work Phone: [facility] 05-19-2023 10:41-0400 Body weight 117.94 kg Natalia Wood MD Work Phone: [facility] 05-19-2023 10:41-0400 Diastolic blood pressure 66 mm[Hg] Natalia Wood MD Work Phone: [facility] 05-19-2023 10:41-0400 Heart rate 53 /min Natalia Wood MD Work Phone: [facility] 05-19-2023 10:41-0400 SaO2% (BldA) [Mass fraction] 98 % Natalia Wood MD Work Phone: [facility] 05-19-2023 10:41-0400 Systolic blood pressure 128 mm[Hg] Natalia Wood MD Work Phone: [facility] 04-24-2023 07:56-0400 Body height 171.5 cm Cholo Soriano MD Work Phone: [facility] 04-24-2023 07:56-0400 Body weight 116.57 kg Cholo Soriano MD Work Phone: [facility] 04-24-2023 07:56-0400 Diastolic blood pressure 64 mm[Hg] Cholo Soriano MD Work Phone: [facility] 04-24-2023 07:56-0400 Heart rate 54 /min Cholo Soriano MD Work Phone: [facility] 04-24-2023 07:56-0400 Systolic blood pressure 116 mm[Hg] Cholo Soriano MD Work Phone: [facility] 11-17-2022 18:58-0500 Diastolic blood pressure 74 mm[Hg] Dr. Cholo Soriano Work Phone: [facility] Work Phone: 11-17-2022 18:58-0500 Heart rate 81 /min Dr. Cholo Soriano Work Phone: [facility] Work Phone: 11-17-2022 18:58-0500 Respiratory rate 16 /min Dr. Cholo Soriano Work Phone: [facility] Work Phone: 11-17-2022 18:58-0500 SaO2% (BldA) [Mass fraction] 99 % Dr. Cholo Soriano Work Phone: [facility] Work Phone: 11-17-2022 18:58-0500 Systolic blood pressure 134 mm[Hg] Dr. Cholo Soriano Work Phone: [facility] Work Phone: 11-17-2022 14:01-0500 Body height 170.[address] Cholo Soriano Work Phone: [facility] Work Phone: 11-17-2022 14:01-0500 Body mass index (BMI) [Ratio] 40.9 kg/m2 Dr. Cholo Soriano Work Phone: [facility] Work Phone: 11-17-2022 14:01-0500 Body temperature 97.5 [degF] Dr. Cholo Soriano Work Phone: [facility] Work Phone: 11-17-2022 14:01-0500 Body weight 118.[address] Cholo Soriano Work Phone: [facility] Work Phone: 10-20-2022 08:54-0500 Body weight 117.94 kg Magda Moise MD Work Phone: [facility] 10-20-2022 08:54-0500 Diastolic blood pressure 74 mm[Hg] Magda Moise MD Work Phone: [facility] 10-20-2022 08:54-0500 Systolic blood pressure 126 mm[Hg] Magda Moise MD Work Phone: [facility] 10-15-2022 11:34-0500 Body weight 117.03 kg Cholo Soriano MD Work Phone: [facility] 10-15-2022 11:34-0500 Diastolic blood pressure 78 mm[Hg] Cholo Soriano MD Work Phone: [facility] 10-15-2022 11:34-0500 Heart rate 58 /min Cholo Soriano MD Work Phone: [facility] 10-15-2022 11:34-0500 Respiratory rate 16 /min Cholo Soriano MD Work Phone: [facility] 10-15-2022 11:34-0500 Systolic blood pressure 122 mm[Hg] Cholo Soriano MD Work Phone: [facility] 09-23-2022 17:51-0400 Body temperature 98 [degF] Dr. Cholo Soriano Work Phone: [facility] Work Phone: 09-23-2022 17:51-0400 Diastolic blood pressure 56 mm[Hg] Dr. Cholo Soriano Work Phone: [facility] Work Phone: 09-23-2022 17:51-0400 Heart rate 51 /min Dr. Cholo Soriano Work Phone: [facility] Work Phone: 09-23-2022 17:51-0400 Respiratory rate 18 /min Dr. Cholo Soriano Work Phone: [facility] Work Phone: 09-23-2022 17:51-0400 SaO2% (BldA) [Mass fraction] 99 % Dr. Cholo Soriano Work Phone: [facility] Work Phone: 09-23-2022 17:51-0400 Systolic blood pressure 144 mm[Hg] Dr. Cholo Soriano Work Phone: [facility] Work Phone: 09-23-2022 16:53-0400 Body height 170.[address] Cholo Soriano Work Phone: [facility] Work Phone: 09-23-2022 16:53-0400 Body mass index (BMI) [Ratio] 39.7 kg/m2 Dr. Cholo Soriano Work Phone: [facility] Work Phone: 09-23-2022 16:53-0400 Body weight 115.[address] Cholo Soriano Work Phone: [facility] Work Phone: 09-18-2022 11:51-0400 Body temperature 100.51 [degF] Nancy Swenson APRN.DEBURRER MACHINE Work Phone: [facility] 09-18-2022 11:51-0400 Body weight 117.94 kg Nancy Swenson APRN.DEBURRER MACHINE Work Phone: [facility] 09-18-2022 11:51-0400 Diastolic blood pressure 82 mm[Hg] Nancy Swenson APRN.DEBURRER MACHINE Work Phone: [facility] 09-18-2022 11:51-0400 Heart rate 82 /min Nancy Swenson APRN.DEBURRER MACHINE Work Phone: [facility] 09-18-2022 11:51-0400 Respiratory rate 21 /min Nancy Swenson APRN.DEBURRER MACHINE Work Phone: [facility] 09-18-2022 11:51-0400 SaO2% (BldA) [Mass fraction] 99 % Nancy Swenson APRN.DEBURRER MACHINE Work Phone: [facility] 09-18-2022 11:51-0400 Systolic blood pressure 150 mm[Hg] Nancy Swenson APRN.DEBURRER MACHINE Work Phone: [facility] 08-29-2022 15:05-0400 Body temperature 98.01 [degF] Nancy Swenson APRN.DEBURRER MACHINE Work Phone: [facility] 08-29-2022 15:05-0400 Body weight 118.93 kg Nancy Swenson APRN.DEBURRER MACHINE Work Phone: [facility] 08-29-2022 15:05-0400 Diastolic blood pressure 84 mm[Hg] Nancy Swenson APRN.DEBURRER MACHINE Work Phone: [facility] 08-29-2022 15:05-0400 Heart rate 85 /min Nancy Swenson APRN.DEBURRER MACHINE Work Phone: [facility] 08-29-2022 15:05-0400 Respiratory rate 18 /min Nancy Swenson APRN.DEBURRER MACHINE Work Phone: [facility] 08-29-2022 15:05-0400 SaO2% (BldA) [Mass fraction] 98 % Nancy Swenson APRN.DEBURRER MACHINE Work Phone: [facility] 08-29-2022 15:05-0400 Systolic blood pressure 138 mm[Hg] Nancy Swenson APRN.DEBURRER MACHINE Work Phone: [facility] 08-26-2022 09:28-0400 Body mass index (BMI) [Ratio] 40.7 kg/m2 Dr. Cholo Soriano Work Phone: [facility] Work Phone: 08-26-2022 09:28-0400 Body weight 117.[address] Cholo Soriano Work Phone: [facility] Work Phone: 08-26-2022 09:28-0400 Diastolic blood pressure 64 mm[Hg] Dr. Cholo Soriano Work Phone: [facility] Work Phone: 08-26-2022 09:28-0400 Heart rate 54 /min Dr. Cholo Soriano Work Phone: [facility] Work Phone: 08-26-2022 09:28-0400 Respiratory rate 16 /min Dr. Cholo Soriano Work Phone: [facility] Work Phone: 08-26-2022 09:28-0400 SaO2% (BldA) [Mass fraction] 98 % Dr. Cholo Soriano Work Phone: [facility] Work Phone: 08-26-2022 09:28-0400 Systolic blood pressure 125 mm[Hg] Dr. Cholo Soriano Work Phone: [facility] Work Phone: 05-07-2022 09:22-0400 Body height 170.2 cm Natalia Wood MD Work Phone: [facility] 05-07-2022 09:22-0400 Body weight 117.94 kg Natalia Wood MD Work Phone: [facility] 05-07-2022 09:22-0400 Diastolic blood pressure 70 mm[Hg] Natalia Wood MD Work Phone: [facility] 05-07-2022 09:22-0400 Heart rate 54 /min Natalia Wood MD Work Phone: [facility] 05-07-2022 09:22-0400 SaO2% (BldA) [Mass fraction] 97 % Natalia Wood MD Work Phone: [facility] 05-07-2022 09:22-0400 Systolic blood pressure 114 mm[Hg] Natalia Wood MD Work Phone: [facility] 04-11-2022 07:58-0400 Body height 173 cm Cholo Soriano MD Work Phone: [facility] 04-11-2022 07:58-0400 Body weight 119.3 kg Cholo Soriano MD Work Phone: [facility] 04-11-2022 07:58-0400 Diastolic blood pressure 68 mm[Hg] Cholo Soriano MD Work Phone: [facility] 04-11-2022 07:58-0400 Heart rate 60 /min Cholo Soriano MD Work Phone: [facility] 04-11-2022 07:58-0400 Respiratory rate 16 /min Cholo Soriano MD Work Phone: [facility] 04-11-2022 07:58-0400 SaO2% (BldA) [Mass fraction] 98 % Cholo Soriano MD Work Phone: [facility] 04-11-2022 07:58-0400 Systolic blood pressure 122 mm[Hg] Cholo Soriano MD Work Phone: [facility] 03-05-2022 14:02-0400 Body height 170.18 cm [facility] Work Phone: 03-05-2022 14:02-0400 Body mass index (BMI) [Ratio] 39.4 kg/m2 [facility] Work Phone: 03-05-2022 14:02-0400 Body temperature 97.2 [degF] [facility] Work Phone: 03-05-2022 14:02-0400 Body weight 114.2 kg [facility] Work Phone: 03-05-2022 14:02-0400 Diastolic blood pressure 70 mm[Hg] [facility] Work Phone: 03-05-2022 14:02-0400 Heart rate 68 /min [facility] Work Phone: 03-05-2022 14:02-0400 Respiratory rate 14 /min [facility] Work Phone: 03-05-2022 14:02-0400 SaO2% (BldA) [Mass fraction] 100 % [facility] Work Phone: 03-05-2022 14:02-0400 Systolic blood pressure 156 mm[Hg] [facility] Work Phone: 08-06-2017 09:41-0400 BMI (Body Mass Index) 43.22 kg/m2 Cherie Driver [facility] Work Phone: 08-06-2017 09:41-0400 BP Diastolic 80 mm[Hg] Cherie Driver [facility] Work Phone: 08-06-2017 09:41-0400 BP Systolic 122 mm[Hg] Cherie Driver [facility] Work Phone: 08-06-2017 09:41-0400 Height 170.18 cm Cherie Driver [facility] Work Phone: 08-06-2017 09:41-0400 Pulse (Heart Rate) 80 /min Cherie Driver [facility] Work Phone: 08-06-2017 09:41-0400 Respiratory Rate 20 /min Cherie Driver [facility] Work Phone: 08-06-2017 09:41-0400 Weight 125.19 kg Cherie Driver [facility] Work Phone: 02-06-2017 08:11-0400 BMI (Body Mass Index) 44.32 kg/m2 Madhavi Echeverria RN [facility] Work Phone: 02-06-2017 08:11-0400 BP Diastolic 62 mm[Hg] Madhavi Echeverria RN [facility] Work Phone: 02-06-2017 08:11-0400 BP Systolic 130 mm[Hg] Madhavi Echeverria RN [facility] Work Phone: 02-06-2017 08:11-0400 Height 170.18 cm Madhavi Echeverria RN [facility] Work Phone: 02-06-2017 08:11-0400 Pulse (Heart Rate) 46 /min Madhavi Echeverria RN [facility] Work Phone: 02-06-2017 08:11-0400 Respiratory Rate 18 /min Madhavi Echeverria RN [facility] Work Phone: 02-06-2017 08:11-0400 Weight 128.37 kg Madhavi Echeverria RN [facility] Work Phone: 11-10-2016 09:03-0500 Heart rate 78 /min Cherie Driver [facility] Work Phone: 07-31-2016 09:24-0400 BSA (Body Surface Area) 2.33 m2 Madhavi Echeverria RN [facility] Work Phone: 07-31-2016 09:24-0400 Pulse Oximetry 98 % Madhavi Echeverria RN [facility] Work Phone: Encounters Encounter Date Encounter Type Care Provider Facility Start: 09-14-2025 End: 09-14-2025 ambulatory CHOLO SORIANO Facility:[facility] Start: 08-25-2025 ambulatory CHOLO SORIANO Facili ty:[facility] Start: 07-26-2025 Encounter for other preprocedural examination HEDY GAMEZ [facility] Start: 07-26-2025 End: 07-26-2025 Orders Only Hedy Gamez MD Work Phone: [facility] Comment on above: Esophagitis (Primary Dx) Esophageal dysphagia [R13.19] Start: 07-26-2025 End: 07-26-2025 Preprocedural examination done Hedy Gamez MD Work Phone: [facility] Start: 06-22-2025 End: 06-22-2025 Follow-up encounter Cholo Soriano MD Work Phone: [facility] Start: 06-22-2025 ambulatory CHOLO SORIANO Facili ty:[facility] Start: 06-22-2025 End: 06-22-2025 [facility] Work Phone: [facility] Comment on above: Acute pain of left k nee [M25.562] Start: 06-22-2025 End: 06-22-2025 Patient encounter procedure Cholo Soriano MD Work Phone: [facility] Comment on above: Fall, initial encoun ter (Primary Dx); Acute pain of left knee Start: 06-22-2025 End: 06-22-2025 ambulatory CHOLO SORIANO Facility:[facility] Start: 06-17-2025 End: 06-17-2025 Subsequent hospital visit by physician Jess [facility] Work Phone: Radiology Comment on above: Pain [R52] Start: 06-17-2025 End: 06-17-2025 Patient encounter procedure Nancy Swenson APRN.DEBURRER MACHINE Work Phone: [facility] Comment on above: Pain (Primary Dx); Contusion of rib on right side, initial encounter; Contusion of left knee, initial encounter Start: 06-17-2025 End: 06-17-2025 ambulatory CHOLO SORIANO Facility:[facility] Start: 06-12-2025 ambulatory CHOLO SORIANO Facili ty:[facility] Start: 06-12-2025 End: 06-12-2025 Subsequent hospital visit by physician [facility] Work Phone: Radiology Comment on above: RUQ pain [R10.11] Start: 06-01-2025 End: 06-01-2025 Office outpatient new 45 minutes Ronal Bell APRN.DEBURRER MACHINE Work Phone: [facility] [place] Comment on above: RUQ pain (Primary Dx ); Esophageal dysphagia; Abnormal upper gastrointestinal barium series; Esophageal spasm; Duodenitis Start: 06-01-2025 End: 06-01-2025 Telephone encounter Maritza Arenas APRN.CUFF SETTER Work Phone: [facility] Comment on above: Anesthesia Consult Start: 06-01-2025 End: 06-01-2025 ambulatory CHOLO SORIANO Facility:[facility] Start: 05-31-2025 End: 06-01-2025 ambulatory Cholo Soriano MD Work Phone: [facility] Comment on above: Pain is back, result s of swallow test Start: 05-29-2025 End: 05-29-2025 ambulatory Cholo Soriano MD Work Phone: [facility] Comment on above: FYI Covid vaccine Ma y 2024 Start: 05-18-2025 End: 05-18-[address] Cholo Soriano MD Work Phone: -Radiology [facility] Start: 05-18-2025 End: 05-18-[address] Cholo Soriano MD -Radiology [facility] Work Phone: Start: 05-18-2025 End: 05-18-2025 ambulatory Cholo Soriano Facility:[facility] Start: 05-15-2025 End: 05-16-2025 Follow-up encounter Cholo Soriano MD Work Phone: [facility] Start: 05-15-2025 End: 05-15-2025 Patient encounter procedure Cholo Soriano MD Work Phone: [facility] Comment on above: Medicare annual well ness visit, subsequent (Primary Dx); Essential hypertension; Hyperlipidemia, mixed; GERD without esophagitis; Acquired hypothyroidism; Thyroid nodule; Paroxysmal atrial fibrillation (HCC); Hyperparathyroidism (HCC); Pulmonary hypertension (HCC); Situational depression; BMI 40.0-44.9, adult (HCC); Low serum vitamin B12; Obstructive sleep apnea syndrome; Osteopenia, unspecified location; Hypokalemia; Advance directive discussed with patient; Encounter for screening examination for other mental health and behavioral disorders Start: 05-15-2025 End: 05-15-2025 ambulatory CHOLO SORIANO Facility:[facility] Start: 05-01-2025 End: 05-03-2025 ambulatory Cholo Soriano MD Work Phone: [facility] Comment on above: Another tick bite? Start: 05-01-2025 End: 05-01-2025 Follow-up encounter Fina Keller APRN.DEBURRER MACHINE Work Phone: [facility] Start: 04-28-2025 End: 04-28-2025 Subsequent hospital visit by physician Jess [facility] Work Phone: Radiology Comment on above: Rib pain on right si de [R07.81] Start: 04-28-2025 End: 04-28-2025 Patient encounter procedure Cholo Soriano MD Work Phone: [facility] Comment on above: Right flank pain (Pr imary Dx); Lyme disease; Tinea corporis; Pharyngoesophageal dysphagia; Rib pain on right side Start: 04-28-2025 End: 04-28-2025 ambulatory CHOLO SORIANO Facility:[facility] Start: 04-19-2025 End: 04-19-2025 ambulatory Cholo Soriano MD Work Phone: [facility] Comment on above: Wellness visit Start: 04-12-2025 Encounter for other preprocedural examination CHOLO OSRIANO [facility] Start: 04-12-2025 End: 04-12-2025 ambulatory CHOLO SORIANO Facility:[facility] Start: 04-11-2025 End: 04-11-2025 Chart abstracting Cholo Soriano MD Work Phone: [facility] Comment on above: ER Discharge Summary Start: 04-10-2025 End: 04-10-2025 Emergency department patient visit Dr. Cholo Soriano MD Work Phone: -Emergency Department Work Phone: Start: 04-06-2025 End: 04-06-2025 Patient encounter procedure Starla Segura APRN.DEBURRER MACHINE Work Phone: [facility] Comment on above: Acute Lyme disease w ith erythema migrans lesion 5 cm or greater in diameter (Primary Dx) Start: 04-06-2025 End: 04-06-2025 ambulatory CHOLO SORIANO Facility:[facility] Start: 04-03-2025 End: 04-03-2025 ambulatory Shiralinda Phelan MA [facility] [place] Start: 04-03-2025 End: 04-03-2025 Patient encounter procedure Shira Phelan MA [facility] Comment on above: Population Health Na vigation Outreach ( Karen WORKANAHY JUANITO PCSA // ) Start: 01-20-2025 End: 01-20-2025 ambulatory CHOLO SORIANO Facility:[facility] Start: 01-20-2025 End: 01-20-2025 Patient encounter procedure Cholo Soriano MD Work Phone: [facility] Comment on above: Osteopenia, unspecif ied location (Primary Dx) Start: 01-11-2025 End: 01-11-2025 Orders Only Murphy Olmos MD Work Phone: Orthopaedics Comment on above: Glenohumeral arthrit is, left (Primary Dx); Acute pain of left shoulder Start: 01-10-2025 End: 01-10-2025 ambulatory Cholo Soriano MD Work Phone: [facility] Comment on above: Bone Density test Start: 01-10-2025 End: 03-12-2025 Follow-up encounter Magda Moise MD Work Phone: OB/Gynecology Start: 01-09-2025 End: 01-09-2025 ambulatory MAGDA MOISE Facility:[facility] Start: 01-09-2025 End: 01-09-2025 Subsequent hospital visit by physician [facility] Comment on above: Encounter for screen ing mammogram for malignant neoplasm of breast [Z12.31] Osteopenia of left f emoral neck [M85.852] Start: 12-30-2024 End: 12-30-2024 ambulatory MURPHY OLMOS Facility:[facility] Start: 12-30-2024 End: 12-30-2024 Patient encounter procedure Murphy Olmos MD Work Phone: Orthopedics Comment on above: Glenohumeral arthrit is, left (Primary Dx) Start: 12-23-2024 End: 12-23-2024 ambulatory [facility] Facility:[facility] Start: 12-23-2024 End: 12-23-2024 Patient encounter procedure Alta Moser MIKEL.DEBURRER MACHINE Work Phone: [facility] Comment on above: URI, acute (Primary Dx); Exposure to influenza Start: 11-28-2024 End: 11-29-2024 Admission to same day surgery center Murphy Olmos MD Work Phone: Orthopedics Comment on above: Dec 21 surgery Start: 11-28-2024 End: 11-29-2024 ambulatory Murphy Olmos MD Work Phone: Orthopedics Start: 11-28-2024 End: 11-28-2024 Telephone encounter Magda Moise MD Work Phone: OB/Gynecology Comment on above: Orders Start: 11-25-2024 End: 11-25-2024 ambulatory [facility] Facility:[facility] Start: 11-25-2024 End: 11-25-2024 Patient encounter procedure Ladi Rock MD Work Phone: Otolaryngology Comment on above: Laryngeal spasm (Edwina rosita Dx) Start: 11-18-2024 End: 11-18-2024 Orders Only Murphy Olmos MD Work Phone: Orthopaedics Comment on above: Glenohumeral arthrit is, left (Primary Dx); Acute pain of left shoulder Start: 11-15-2024 End: 11-15-2024 ambulatory [facility] Facility:[facility] Start: 11-15-2024 End: 11-15-2024 Patient encounter procedure Collette Mendes 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DEBURRER MACHINE Work Phone: [facility] Comment on above: Sore throat (Primary Dx); URI, acute Start: 11-07-2024 End: 11-07-2024 Office outpatient visit 25 minutes Hilda Snyder PA-C Work Phone: [facility] Comment on above: Essential hypertensi on (Primary Dx); Hyperlipidemia, mixed; Hyperparathyroidism (HCC); Acquired hypothyroidism; Low serum vitamin B12; Situational depression; Paroxysmal atrial fibrillation (HCC); GERD without esophagitis; Hyperuricemia Start: 11-07-2024 End: 11-07-2024 ambulatory CHOLO SORIANO Facility:[facility] Start: 11-02-2024 End: 11-02-2024 Chart abstracting Santiago Swenson MA [facility] Comment on above: Results (Outside [facility] ) Start: 11-02-2024 ambulatory [facility] Facility:[facility] Start: 11-02-2024 End: 11-02-2024 ambulatory [facility] Facility:[facility] Start: 10-24-2024 End: 10-24-2024 ambulatory CHOLO SORIANO Facility:[facility] Start: 10-10-2024 End: 10-11-2024 ambulatory Magda Moise MD Work Phone: OB/Gynecology Start: 10-10-2024 End: 10-10-2024 Chart abstracting Cholo Soriano MD Work Phone: [facility] Comment on above: Outside Cardiology Start: 10-10-2024 End: 10-11-2024 Patient encounter procedure Magda Moise MD Work Phone: OB/Gynecology Comment on above: Appointments Start: 10-06-2024 End: 10-06-2024 ambulatory Cholo Soriano Facility:[facility] Start: 09-24-2024 End: 09-26-2024 ambulatory Magda Moise MD Work Phone: OB/Gynecology Comment on above: BMD body comp(bone d ensity test?) Start: 09-09-2024 End: 09-09-2024 Patient encounter procedure Murphy Olmos MD Work Phone: Orthopedics Comment on above: Glenohumeral arthrit is, left (Primary Dx) Start: 09-09-2024 ambulatory UNKNOWN PROVIDER Facili ty:[facility] Start: 09-09-2024 End: 09-09-2024 Subsequent hospital visit by physician [facility] Work Phone: Radiology Comment on above: Chronic left shoulde r pain [M25.512, G89.29] Acute cough [R05.1] Start: 09-09-2024 End: 09-09-2024 Patient encounter procedure Lawrence Romuloadamaaleks MIKEL.DEBURRER MACHINE Work Phone: [facility] Comment on above: Acute cough (Primary Dx) Start: 08-29-2024 End: 08-29-2024 Telephone encounter Nancy Swenson APRN.DEBURRER MACHINE Work Phone: [facility] Comment on above: Results Start: 08-29-2024 End: 08-29-2024 Subsequent hospital visit by physician [facility] Work Phone: Radiology Comment on above: Pain in rib [R07.81] Start: 08-29-2024 End: 08-29-2024 Patient encounter procedure Nancy Swenson APRN.DEBURRER MACHINE Work Phone: [facility] Comment on above: Pain in rib (Primary Dx) Start: 08-28-2024 End: 08-29-2024 Telephone encounter Cholo Soriano MD Work Phone: [facility] Comment on above: Results Start: 08-25-2024 End: 08-25-2024 Subsequent hospital visit by physician [facility] Work Phone: Radiology Comment on above: Thyroid nodule [E04. 1] Start: 08-19-2024 End: 08-22-2024 ambulatory Cholo Soriano MD Work Phone: [facility] Comment on above: New Covid vaccine An d a shoulder steroid shot Start: 08-11-2024 End: 08-12-2024 Telephone encounter Catrachita Galindo RN Orthopaedics Comment on above: Appointment Start: 08-11-2024 End: 08-11-2024 Patient encounter procedure Nancy Swenson APRN.DEBURRER MACHINE Work Phone: [facility] Comment on above: Cellulitis of skin ( Primary Dx) Start: 07-26-2024 End: 07-26-2024 Orders Only Murphy Olmos MD Work Phone: Orthopedics Comment on above: Chronic left shoulde r pain (Primary Dx) Start: 07-18-2024 End: 07-18-2024 ambulatory Alexsander Mayfield PT Work Phone: [facility] Comment on above: Balance problems (Pr imary Dx); Multiple falls Start: 06-22-2024 Telephone encounter Murphy Olmos MD Work Phone: [facility] Start: 06-15-2024 End: 06-15-2024 Patient encounter procedure Natalia Wood MD Work Phone: Pulmonary Medicine Comment on above: Lung nodules (Primar y Dx); Bronchospasm; Atelectasis; ROZ on CPAP; Pulmonary hypertension (HCC); Morbid obesity (HCC) Start: 06-02-2024 ambulatory Cholo calvillo MD Work Phone: [facility] Comment on above: Thyroid ultrasound Start: 05-23-2024 End: 05-23-2024 Subsequent hospital visit by physician [facility] ([facility]) Work Phone: Cat Scan Comment on above: Lung nodules [R91.8] Start: 05-06-2024 End: 05-06-2024 Patient encounter procedure Cholo Soriano MD Work Phone: [facility] Comment on above: Medicare annual well ness visit, subsequent (Primary Dx); Essential hypertension; Hyperlipidemia, mixed; Acquired hypothyroidism; Thyroid nodule; GERD without esophagitis; Hyperparathyroidism (HCC); Paroxysmal atrial fibrillation (HCC); Situational depression; Hyperuricemia; Pulmonary hypertension (HCC); Low serum vitamin B12; Obesity, Class II, BMI 35-39.9; Advance directive discussed with patient; Balance problems; Multiple falls; Encounter for immunization; Skin cancer screening Start: 05-03-2024 End: 05-03-2024 Patient encounter procedure Zoey Chawla PA-C Work Phone: Orthopaedics Comment on above: Glenohumeral arthrit is, left (Primary Dx); Fall, initial encounter; Pain in right wrist Start: 05-02-2024 End: 05-02-2024 ambulatory Alexsander Mayfield PT Work Phone: [facility] Comment on above: Balance problems (Pr imary Dx); Multiple falls Start: 04-15-2024 End: 04-15-2024 ambulatory Alexsander Mayfield PT Work Phone: [facility] Comment on above: Balance problems (Pr imary Dx); Multiple falls Start: 03-31-2024 End: 03-31-2024 ambulatory Alexsander Mayfield PT Work Phone: [facility] Comment on above: Balance problems (Pr imary Dx); Multiple falls Start: 03-18-2024 End: 03-18-2024 ambulatory Alexsander Mayfield PT Work Phone: [facility] Comment on above: Balance problems (Pr imary Dx); Multiple falls Start: 2024 End: 2024 ambulatory Alexsander Mayfield PT Work Phone: [facility] Comment on above: Balance problems (Pr imary Dx); Multiple falls Start: 02-26-2024 End: 02-26-2024 ambulatory Alexsander Mayfield PT Work Phone: [facility] Comment on above: Balance problems; Multiple falls Start: 02-11-2024 End: 02-11-2024 Subsequent hospital visit by physician [facility] ([facility]) Work Phone: Cat Scan Comment on above: Pain of cheek [R51.9 ] Start: 02-11-2024 Telephone encounter Cholo Soriano MD Work Phone: Family [facility] [place] Comment on above: Results Start: 02-10-2024 ambulatory Emma moser RN NURSE CUSTOMER CARE PROFESSIONAL Comment on above: Wrist/forearm Injury Start: 02-10-2024 Telephone encounter Cholo Soriano MD Work Phone: Internal Medicine [place] Comment on above: pt appt Start: 02-10-2024 End: 02-10-2024 Patient encounter procedure Cholo Soriano MD Work Phone: [facility] Comment on above: Pain of cheek (Prima ry Dx); Balance problems; Multiple falls Start: 02-08-2024 ambulatory Zoey Vetovit z PA-C Work Phone: Orthopaedics Comment on above: Wrist/ cast tech Start: 02-08-2024 Telephone encounter Zoey Zaidit ovitz PA-C Work Phone: Orthopaedics Comment on above: Patient Question Start: 02-07-2024 ambulatory Zoey Vetovit z PA-C Work Phone: Orthopaedics Comment on above: Wrist care Start: 02-06-2024 End: 02-06-2024 Subsequent hospital visit by physician Jess [facility] [place] Work Phone: Radiology Comment on above: Wrist pain, right [M 25.531] Start: 02-06-2024 End: 02-06-2024 Patient encounter procedure Guido Aguilar MD Work Phone: [facility] Comment on above: Wrist pain, right (P rimary Dx); Closed nondisplaced fracture of scaphoid of right wrist, unspecified portion of scaphoid, initial encounter Start: 01-12-2024 End: 01-12-2024 Emergency department patient [facility] Start: 01-11-2024 End: 01-11-2024 Patient encounter procedure Denita Martinez APRN.CNP Work Phone: [facility] Comment on above: Cellulitis of skin ( Primary Dx) Start: 12-12-2023 End: 12-12-2023 Emergency department patient visit Dr. Cholo [facility]: Start: 10-28-2023 End: 10-28-2023 Subsequent hospital visit by physician Jses [facility] [place] Work Phone: Radiology Comment on above: Closed displaced fra cture of phalanx of right little finger with routine healing, unspecified phalanx, subsequent encounter [S62.606D] Start: 10-27-2023 Chart abstracting Cholo mcdaniels MD Work Phone: [facility] [place] Comment on above: Outside Dermatology Start: 10-13-2023 Documentation procedure Mammog nisa Coordinator [facility] Start: 10-13-2023 Letter encounter Mammography Coordinator [facility] Department Start: 10-13-2023 End: 10-13-2023 Patient encounter procedure Magda Moise MD Work Phone: OB/Gynecology Comment on above: Encounter for gyneco logical examination without abnormal finding (Primary Dx); Encounter for screening mammogram for breast cancer; Osteopenia of left femoral neck Start: 10-13-2023 End: 10-13-2023 Patient encounter status Magda Moise MD Work Phone: [facility] Work Phone: Start: 10-12-2023 End: 10-12-2023 Subsequent hospital visit by physician Screen Mammo [facility] Mammogram Comment on above: Encounter for screen ing mammogram for malignant neoplasm of breast [Z12.31] Start: 10-09-2023 End: 10-09-2023 Patient encounter procedure Aryan Torres DO Work Phone: [facility] [place] Comment on above: Closed displaced fra cture of phalanx of right little finger with routine healing, unspecified phalanx, subsequent encounter (Primary Dx) Start: 10-08-2023 End: 10-08-2023 Subsequent hospital visit by physician Xr [facility] [place] Work Phone: Radiology Comment on above: Hand pain, right [M7 9.641] Start: 10-08-2023 End: 10-08-2023 Patient encounter procedure Alta Moser APRN.DEBURRER MACHINE Work Phone: [facility] Comment on above: Hand pain, right (Pr imary Dx); Closed nondisplaced fracture of phalanx of right little finger, unspecified phalanx, initial encounter Start: 09-22-2023 Chart abstracting Cholo mcdaniels MD Work Phone: [facility] Comment on above: ext document (Cardio ) Start: 09-22-2023 End: 09-22-[address] Cholo Soriano Work Phone: [facility] Work Phone: Start: 09-10-2023 Chart abstracting Cholo [facility]cdaniels MD [facility] Comment on above: Outside Derm Start: 09-09-2023 ambulatory Magda Moise MD Work Phone: OB/Gynecology Comment on above: Mammogram Start: 09-08-2023 ambulatory Cholo calvillo MD Work Phone: [facility] Comment on above: Basal cell carcinoma and vaccines Start: 08-24-2023 End: 08-24-[address] Cholo Soriano Work Phone: [facility], [facility] Work Phone: Start: 05-20-2023 Refill Hilda Brown on PA-C Work Phone: LAB [facility] Comment on above: Refill Request Start: 05-19-2023 End: 05-19-2023 Patient encounter procedure Natalia Wood MD Work Phone: Pulmonary Medicine Comment on above: Lung nodules (Primar y Dx); ROZ on CPAP; Pulmonary hypertension (HCC); Morbid obesity (HCC) Start: 04-24-2023 End: 04-24-2023 Patient encounter procedure Cholo Soriano MD Work Phone: [facility] Comment on above: Medicare annual well ness visit, subsequent (Primary Dx); Essential hypertension; Hyperlipidemia, mixed; Acquired hypothyroidism; GERD without esophagitis; Thyroid nodule; Hyperparathyroidism (HCC); Paroxysmal atrial fibrillation (HCC); Situational depression; Hyperuricemia; Obesity, Class II, BMI 35-39.9; Obstructive sleep apnea syndrome; Low serum vitamin B12 Start: 02-03-2023 Telephone encounter Eber aleman MD Work Phone: Orthopaedics Comment on above: Patient Update Start: 11-27-2022 End: 11-27-2022 Patient encounter procedure Eber Moore MD Work Phone: Orthopaedics Comment on above: Trochanteric bursiti s of left hip (Primary Dx); Limping with cause localized to lower leg Start: 11-25-2022 Refill Hilda Brown on PA-C Work Phone: LAB COVID Comment on above: Refill Request Start: 11-17-2022 End: 11-17-2022 Emergency department patient visit Dr. Cholo Soriano Work Phone: [facility]Emergency Department Start: 11-06-2022 Telephone encounter Cholo Soriano MD Work Phone: [facility] Comment on above: Results Start: 11-06-2022 End: 11-06-2022 Subsequent hospital visit by physician Xr [facility] Work Phone: Radiology Comment on above: Left hip pain [M25.5 52] Start: 10-24-2022 ambulatory Cholo calvillo MD Work Phone: [facility] Comment on above: Doppler, urine tests Start: 10-23-2022 Telephone encounter Magda Moise MD Work Phone: OB/Gynecology Comment on above: Results Start: 10-20-2022 ambulatory Cholo calvillo MD Work Phone: [facility] Comment on above: Doppler and prozac Start: 10-20-2022 End: 10-20-2022 Patient encounter procedure Magda Moise MD Work Phone: OB/Gynecology Comment on above: Left leg pain (Prima ry Dx) Start: 10-15-2022 End: 10-15-2022 Patient encounter procedure Cholo Soriano MD Work Phone: [facility] Comment on above: Essential hypertensi on (Primary Dx); Hyperlipidemia, mixed; Acquired hypothyroidism; Hyperparathyroidism (HCC); Paroxysmal atrial fibrillation (HCC); Obstructive sleep apnea syndrome; Obesity, Class II, BMI 35-39.9; Low serum vitamin B12; Hyperuricemia; Gilbert syndrome; Multiple lung nodules on CT; Limping with cause localized to lower leg; Situational depression Start: 10-10-2022 Documentation procedure Mammog insa Coordinator [facility] Start: 10-10-2022 Letter encounter Mammography Coordinator [facility] Department Start: 10-10-2022 End: 10-10-2022 Subsequent hospital visit by physician Screen Mammo [facility] Mammogram Comment on above: Encounter for screen ing mammogram for malignant neoplasm of breast [Z12.31] Start: 09-23-2022 End: 09-23-[address] Cholo Soriano Work Phone: [facility] Work Phone: Start: 09-23-2022 End: 09-23-[address] Cholo Soriano Work Phone: [facility]Medical Surgical 3 Outp Start: 09-23-2022 End: 09-23-[address] Cholo Soriano Work Phone: [facility] Start: 09-19-2022 ambulatory Cholo calvillo MD Work Phone: [facility] Comment on above: Covid Start: 09-18-2022 Telephone encounter Cholo Soriano MD Work Phone: [facility] Comment on above: Patient Update Start: 09-18-2022 End: 09-18-2022 Patient encounter procedure Nancy Swenson APRN.CNP Work Phone: [facility] Comment on above: At increased risk of exposure to COVID-19 virus (Primary Dx); Acute cough Start: 09-09-2022 ambulatory Cholo calvillo MD Work Phone: [facility] Comment on above: Flu and Tdap Start: 08-29-2022 End: 08-29-2022 Patient encounter procedure Nancy Swenson APRN.CNP Work Phone: [facility] Comment on above: Bruise (Primary Dx) Start: 08-26-2022 End: 08-26-[address] Cholo Soriano Work Phone: [facility] Start: 08-15-2022 ambulatory Cholo calvillo MD Work Phone: [facility] Comment on above: Immunization Start: 08-14-2022 End: 08-14-[address] Cholo Soriano Work Phone: [facility] Start: 08-07-2022 End: 08-07-2022 ambulatory [facility] Work Phone: Start: 08-07-2022 End: 08-07-2022 Patient encounter procedure [facility] Start: 06-13-2022 Refill Hilda Brown on PA-C Work Phone: [facility] Comment on above: Refill Request Start: 05-19-2022 End: 05-19-2022 Patient encounter procedure Ladi Briscoe Work Phone: Podiatry Comment on above: Neuropathy (Primary Dx); Foot pain, bilateral Start: 05-19-2022 End: 05-19-2022 Subsequent hospital visit by physician Xr [facility] Work Phone: Radiology Comment on above: Bilateral foot pain [M79.671, M79.672] Start: 05-07-2022 End: 05-07-2022 Patient encounter procedure Natalia Wood MD Work Phone: Pulmonary Medicine Comment on above: Multiple lung nodule s on CT (Primary Dx); Obstructive sleep apnea syndrome; Obesity, Class II, BMI 35-39.9; Pulmonary hypertension (HCC) Start: 05-05-2022 End: 05-05-2022 Subsequent hospital visit by physician Michelle [facility] ([facility]) Work Phone: Cat Scan Comment on above: Lung nodules [R91.8] Start: 04-29-2022 Telephone encounter Hilda de guzman PA-C Work Phone: [facility] Comment on above: Results Start: 04-28-2022 End: 04-28-2022 Subsequent hospital visit by physician [facility] Work Phone: Radiology Comment on above: Bilateral renal cyst s [N28.1] Refill Request Start: 04-11-2022 End: 04-11-2022 Patient encounter procedure Cholo Soriano MD Work Phone: [facility] Comment on above: Medicare annual well ness visit, subsequent (Primary Dx); Essential hypertension; Mixed hyperglyceridemia; Acquired hypothyroidism; Hyperparathyroidism (HCC); Paroxysmal atrial fibrillation (HCC); GERD without esophagitis; Low serum vitamin B12; Obesity, Class II, BMI 35-39.9; Hyperuricemia; Obstructive sleep apnea syndrome; Lumbar degenerative disc disease; Hyperlipidemia, mixed; Thyroid nodule; Living will in place; Advance directive discussed with patient; Multiple lung nodules on CT; Bilateral renal cysts; Foot pain, bilateral; RUQ pain; Closed fracture of one rib of right side with routine healing, subsequent encounter Start: 03-16-2022 Telephone encounter Cholo Soriano MD Work Phone: [facility] Comment on above: Results Start: 03-12-2022 End: 03-12-2022 Subsequent hospital visit by physician Jess [facility] Work Phone: Radiology Comment on above: Rib pain on right si de [R07.81] Start: 03-05-2022 End: 03-05-2022 [facility] Start: 02-25-2022 End: 02-25-2022 Patient encounter procedure Eber Moore MD Work Phone: Orthopaedics Comment on above: Trochanteric bursiti s of right hip (Primary Dx) Start: 02-25-2022 End: 02-25-2022 Subsequent hospital visit by physician [facility] Amanda Ptitman Work Phone: Radiology Comment on above: Pain in right hip [M 25.551] Start: 04-03-2021 Patient encounter procedure Eber Moore MD Work Phone: [facility] Work Phone: Start: 04-03-2021 Patient encounter status Eber Moore MD Work Phone: [facility] Work Phone: Start: 12-02-2018 End: 05-13-2019 Patient encounter procedure Alexsander Mayfield PT Work Phone: [facility] Work Phone: Procedures Date Procedure Procedure Detail Performing Clinician Start: 06-22-2025 Ct lower extremity w /o contrast material Cholo Soriano MD Work Phone: Start: 06-17-2025 Radiologic exam knee complete 4/more views Nancy Swenson APRN.DEBURRER MACHINE Work Phone: Start: 05-18-[address] Bryan Soriano MD Work Phone: Start: 04-28-2025 Radex ribs uni w/pos teroant ch minimum 3 views Cholo Soriano MD Work Phone: Start: 04-28-2025 Urnls dip stick/tabl et rgnt auto w/o microscopy Cholo Soriano MD Work Phone: Start: 01-09-2025 Screening digital br east tomosynthesis bi Magda Moise MD Work Phone: Start: 12-30-2024 Arthrocentesis aspir &/inj major jt/bursa w/o us Murphy Olmos MD Work Phone: Start: 11-15-2024 STREP A MOLECULAR (POC) Collette Mendes APRN.DEBURRER MACHINE Work Phone: Start: 10-24-2024 Lipid 1996 panel - S alis or Plasma Santiago Swenson MA Start: 09-09-2024 Arthrocentesis aspir &/inj major jt/bursa w/o us Murphy Olmos MD Work Phone: Start: 09-09-2024 Radiologic exam ches t 2 views Lawrence Little 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DEBURRER MACHINE Work Phone: Start: 08-29-2024 Radex ribs uni w/pos teroant ch minimum 3 views Nancy Damion 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DEBURRER MACHINE Work Phone: Start: 05-06-2024 [employer] COVI D-19 VACCINE (2022- SEASON) AGE 12+ YR Cholo Soriano MD Work Phone: Start: 05-03-2024 Arthrocentesis aspir &/inj major jt/bursa w/o us Zoeydra Chawla PA-C Work Phone: Start: 04-26-2024 Lipid 1995 panel - S alis or Plasma Alexsander Mayfield PT Work Phone: Start: 02-11-2024 Ct maxillofacial w/o contrast material Cholo Soriano MD Work Phone: Start: 02-06-2024 Radex wrist complete minimum 3 views Guido Aguilar MD Work Phone: Start: 12-12-2023 CT of head without contrast Dr. Cholo Soriano Work Phone: Start: 12-12-2023 Plain X-ray of shoulder Dr. Cholo Soriano Work Phone: Start: 10-13-2023 Lipid 1995 panel - S alis or Plasma Magda Moise MD Work Phone: Start: 10-12-2023 Screening digital br east tomosynthesis bi Magda Moise MD Work Phone: Start: 10-08-2023 Radex hand minimum 3 views Alta Moser 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DEBURRER MACHINE Work Phone: Start: 08-24-2023 US scan of thyroid Dr. Cholo Soriano Work Phone: Start: 04-14-2023 Lipid 1995 panel - S alis or Plasma Magda Moise MD Work Phone: Start: 11-17-2022 Plain chest X-ray Dr. Keshav Soriano Work Phone: Start: 11-06-2022 Radex hip unilateral with pelvis 2-3 views Cholo Soriano MD Work Phone: Start: 10-10-2022 BEBETO SCREENING W KAI Junior MD Work Phone: Start: 10-10-2022 Mammography Mammograph y Coordinator Start: 08-07-2022 US scan of thyroid Start: 05-19-2022 Radex foot complete minimum 3 views Ladi Briscoe Work Phone: Start: 05-05-2022 Ct thorax w/o contra st material Natalia Wood MD Work Phone: Start: 04-28-2022 Us retroperitoneal r eal time w/image complete Cholo Soriano MD Work Phone: Start: 04-11-2022 Adult depression scr eening assessment Cholo Soriano MD Work Phone: Start: 03-12-2022 Radex ribs uni w/pos teroant ch minimum 3 views Cholo Soriano MD Work Phone: Start: 03-05-2022 CT of head without contrast Start: 03-05-2022 Plain chest X-ray Start: 02-25-2022 Radiologic examinati on pelvis 1/2 views Aiden Lees APRN.CNP Work Phone: Start: 10-04-2021 Mammography Eber aleman MD Work Phone: Start: 04-01-2021 Adult depression scr eening assessment Eber Moore MD Work Phone: Start: 04-11-2019 Colonoscopy Eber aleman MD Work Phone: Start: 02-06-2017 End: 02-06-2017 PHARMACOVIGILANCE SAFETY EXPERT Akhil Muñoz MD Start: 02-06-2017 End: 02-06-2017 Follow Up Appt 6 months Edwin Oviedo Start: 02-06-2017 End: 02-06-2017 Dietary management education, guidance, and counseling Cherie Driver Start: 02-06-2017 End: 02-06-2017 LUIS Muñoz MD Start: 02-06-2017 End: 02-06-2017 Follow Up Appt 6 months Edwin Oviedo Start: 11-10-2016 End: 02-04-2017 Ecg routine ecg w/least 12 lds w/i&r Akhil Muñoz MD Start: 11-10-2016 End: 02-04-2017 Electrocardiogram, complete Akhil Patterson i, MD Start: 09-04-2016 End: 09-04-2016 Follow Up BP Check Akhil Muñoz MD Start: 09-04-2016 End: 10-31-2016 Natriuretic peptide B [Mass/volume] in Blood Akhil Muñoz MD Start: 09-04-2016 End: 10-31-2016 BNP Akhil Muñoz MD Start: 09-04-2016 End: 09-04-2016 Follow Up BP Check Akhil Muñoz MD Start: 07-31-2016 End: 07-31-2016 LUIS Muñoz MD Start: 07-31-2016 End: 07-31-2016 Follow Up Appt 6 months Edwin Oviedo Start: 07-31-2016 End: 07-31-2016 LUIS Muñoz MD Start: 07-31-2016 End: 07-31-2016 Follow Up Appt 6 months Edwin Oviedo Start: 04-22-2016 End: 04-22-2016 Follow Up Appt 3 months Edwin Oviedo Start: 04-22-2016 End: 04-22-2016 FRANCESCO Muñoz MD Start: 04-22-2016 End: 04-22-2016 Follow Up Appt 3 months Edwin Oviedo Start: 04-22-2016 End: 04-22-2016 FRANCESCO Muñoz MD Start: 03-25-2016 End: 07-23-2016 Venous doppler Akhil Muñoz MD Start: 03-25-2016 End: 07-23-2016 Venous doppler Akhil Muñoz MD Start: 01-18-2016 End: 02-11-2016 Echocardiography Akhil Muñoz MD Start: 01-18-2016 End: 01-18-2016 Follow Up Appt 3 months Edwin Oviedo Start: 01-18-2016 End: 01-18-2016 FRANCESCO Muñoz MD Start: 01-18-2016 End: 02-11-2016 Echocardiography Akhil Muñoz MD Start: 01-18-2016 End: 01-18-2016 Follow Up Appt 3 months Edwin Oviedo Start: 01-18-2016 End: 01-18-2016 MMEdwin Muñoz MD Start: 07-25-2015 End: 07-25-2015 LUIS Heller PA-C Work Phone: Start: 07-25-2015 End: 07-25-2015 Follow Up Appt 6 months Radhika hodge PA-C Work Phone: Start: 07-25-2015 End: 07-25-2015 PHARMACOVIGILANCE SAFETY EXPERT Radhika Heller PA-C Work Phone: Start: 07-25-2015 End: 07-25-2015 Follow Up Appt 6 months Radhika hodge PA-C Work Phone: Start: 02-06-2015 End: 02-07-2015 Documentation of current medications Akhil Muñoz MD Start: 02-06-2015 End: 07-11-2015 Echocardiography Akhil Muñoz MD Start: 02-06-2015 End: 02-06-2015 Follow Up Appt 6 months Edwin Oviedo Start: 02-06-2015 End: 02-06-2015 MMEdwin Muñoz MD Start: 02-06-2015 End: 02-07-2015 Documentation of current medications Akhil Muñoz MD Start: 02-06-2015 End: 07-11-2015 Echocardiography Akhil Muñoz MD Start: 02-06-2015 End: 02-06-2015 Follow Up Appt 6 months Edwin Oviedo Start: 02-06-2015 End: 02-06-2015 MMEdwin Muñoz MD Start: 09-08-2013 End: 09-08-2013 LUIS Muñoz MD Start: 09-08-2013 End: 09-08-2013 Follow Up Appt 1 year Akhil Muñoz MD Start: 09-08-2013 End: 09-08-2013 LUIS Muñoz MD Start: 09-08-2013 End: 09-08-2013 Follow Up Appt 1 year Akhil Muñoz MD Start: 09-17-2012 End: 09-20-2012 *BMP Akhil Muñoz MD Start: 09-17-2012 End: 09-20-2012 Carotid duplex Akhil Muñoz MD Start: 09-17-2012 End: 07-11-2015 Follow Up Appt 1 year Akhil Muñoz MD Start: 09-17-2012 End: 09-20-2012 *RAVEN Muñoz MD Start: 09-17-2012 End: 09-20-2012 Carotid duplex Akhil Muñoz MD Start: 09-17-2012 End: 07-11-2015 Follow Up Appt 1 year Akhil Muñoz MD Start: 06-15-2012 End: 06-22-2012 Echocardiography Akhil Muñoz MD Start: 06-15-2012 End: 06-15-2012 Follow Up Appt 3 months Edwin Oviedo Start: 06-15-2012 End: 06-22-2012 Echocardiography Akhil Muñoz MD Start: 06-15-2012 End: 06-15-2012 Follow Up Appt 3 months Edwin Oviedo Plan of Treatment Date Care Activity Detail Author Start: 09-02-2032 Urine microalbumin profile [facility] Start: 10-24-2029 Lipid panel Lipid Screening [facility] Start: 04-26-2029 Lipid panel Lipid Screening [facility] Start: 10-13-2028 Lipid 1996 panel - Serum or Plasma Lipid Screening [facility] Start: 10-13-2028 Lipid panel Lipid Screening [facility] Start: 04-14-2028 Lipid 1996 panel - Serum or Plasma Lipid Screening [facility] Start: 04-14-2028 LIPID SCREEN LIPID SCREEN [facility] Start: 04-12-2028 Diabetes Screening Diabetes Screening [facility] Start: 10-24-2027 Diabetes Screening Diabetes Screening [facility] Start: 09-29-2027 LIPID SCREEN LIPID SCREEN [facility] Start: 04-26-2027 Diabetes Screening Diabetes Screening [facility] Start: 03-24-2027 LIPID SCREEN LIPID SCREEN [facility] Start: 10-13-2026 Diabetes Screening Diabetes Screening [facility] Start: 10-01-2026 LIPID SCREEN LIPID SCREEN [facility] Start: 06-22-2026 Annual PCP Team Chronic Disease Visit Annual PCP Team Chronic Disease Visit [facility] Start: 05-15-2026 Annual PCP Team Chronic Disease Visit Annual PCP Team Chronic Disease Visit [facility] Start: 05-15-2026 Anxiety Screening Anxiety Screening [facility] Start: 05-15-2026 Medicare Annual Wellness Visit Medicare Annual Wellness Visit [facility] Start: 04-28-2026 Annual PCP Team Chronic Disease Visit Annual PCP Team Chronic Disease Visit [facility] Start: 04-28-2026 BP Controlled (<130/80) BP Controlled (<130/80) [facility] Start: 04-14-2026 DIABETES SCREEN DIABETES SCREEN [facility] Start: 04-14-2026 Diabetes Screening Diabetes Screening [facility] Start: 04-12-2026 BP Controlled (<130/80) BP Controlled (<130/80) [facility] Start: 01-20-2026 Annual PCP Team Chronic Disease Visit Annual PCP Team Chronic Disease Visit [facility] Start: 01-20-2026 BP Controlled (<130/80) BP Controlled (<130/80) [facility] Start: 01-12-2026 Urine microalbumin profile DTAP,TDAP,TD (3 - Td or Tdap) [facility] Start: 12-23-2025 BP Controlled (<130/80) BP Controlled (<130/80) [facility] Start: 11-14-2025 End: 11-14-2025 Patient encounter procedure 11/14/2025 7:40 AM EST Office Visit Family [address] [id number] Fina Keller APRN.[facility] [address] [place], [place] [address] 6 mo f/u Family Medicine [facility] Comment on above: 6 mo f/u Start: 11-07-2025 Annual PCP Team Chronic Disease Visit Annual PCP Team Chronic Disease Visit [facility] Start: 11-03-2025 End: 02-02-2026 Basic metabolic 2000 panel - Serum or Plasma BASIC METABOLIC PANEL Lab Routine Essential hypertension Hyperlipidemia, mixed Expected: 11/03/2025, Expires: 02/02/2026 [facility] Comment on above: Expected: 11/03/2025, Expires: Start: 11-03-2025 End: 02-02-2026 LIPID PANEL, NONFASTING LIPID PANEL, NONFASTING Lab Routine Essential hypertension Hyperlipidemia, mixed Expected: 11/03/2025, Expires: 02/02/2026 [facility] Comment on above: Expected: 11/03/2025, Expires: Start: 11-03-2025 End: 02-02-2026 Thyrotropin [Units/volume] in Serum or Plasma THYROID STIMULATING HORMONE Lab Routine Acquired hypothyroidism Expected: 11/03/2025, Expires: 02/02/2026 [facility] Comment on above: Expected: 11/03/2025, Expires: Start: 09-29-2025 DIABETES SCREEN DIABETES SCREEN [facility] Start: 08-25-2025 End: 06-14-2026 US Thyroid gland US THYROID/PARATHYROID Radiology Routine Thyroid nodule Expected: 08/25/2025, Expires: 06/14/2026 [facility] Work Phone: Comment on above: Expected: 08/25/2025, Expires: Start: 08-25-2025 End: 08-25-2025 Patient encounter procedure Radiology Comment on above: Dx: Thyroid nodule [E04.1] Annual f/u thyroid s can- previous 08/2024 Start: 07-26-2025 End: 07-26-2025 Patient encounter procedure [facility] Start: 07-24-2025 Influenza vaccination Influenza Vaccine (#1) [facility] Start: 06-15-2025 BP Controlled (<130/80) BP Controlled (<130/80) [facility] Start: 06-15-2025 End: 07-15-2025 CT Chest WO contrast CT CHEST WO IVCON Radiology Routine Lung nodules Expected: 06/15/2025, Expires: 07/15/2025 [facility] Work Phone: Comment on above: Expected: 06/15/2025, Expires: Start: 06-12-2025 End: 06-12-2025 Patient encounter procedure 06/12/2025 7:45 AM EDT Appointment Radiology [address] [place] [address] RUQ pain [R10.11] Radiology Comment on above: RUQ pain [R10.11] Start: 05-15-2025 End: 05-15-2025 Patient encounter procedure Family Medicine [facility] Comment on above: Medicare Wellness Start: 05-12-2025 End: 05-12-2025 Patient encounter procedure 05/12/2025 11:15 AM EDT Office Visit Orthopedics [address] [facility] [address] [place] [phone] Murphy Olmos MD [address] [facility]. [facility] [address] [place] [address] S/P Left RTSA 05-01-2025 Orthopedics Comment on above: S/P Left RTSA 05-01-2025 Start: 05-08-2025 End: 08-07-2025 CBC W Auto Differential panel - Blood COMPLETE BLOOD COUNT AND DIFFERENTIAL Lab Routine Essential hypertension Expected: 05/08/2025, Expires: 08/07/2025 [facility] Comment on above: Expected: 05/08/2025, Expires: Start: 05-08-2025 End: 08-07-2025 Cobalamin (Vitamin B12) [Mass/volume] in Serum or Plasma VITAMIN B12 Lab Routine Low serum vitamin B12 Expected: 05/08/2025, Expires: 08/07/2025 [facility] Comment on above: Expected: 05/08/2025, Expires: Start: 05-08-2025 End: 08-07-2025 Comprehensive metabolic 2000 panel - Serum or Plasma COMPREHENSIVE METABOLIC PANEL Lab Routine Essential hypertension Expected: 05/08/2025, Expires: 08/07/2025 [facility] Comment on above: Expected: 05/08/2025, Expires: Start: 05-08-2025 End: 08-07-2025 LIPID PANEL, NONFASTING LIPID PANEL, NONFASTING Lab Routine Hyperlipidemia, mixed Expected: 05/08/2025, Expires: 08/07/2025 [facility] Comment on above: Expected: 05/08/2025, Expires: Start: 05-08-2025 End: 08-07-2025 Thyrotropin [Units/volume] in Serum or Plasma THYROID STIMULATING HORMONE Lab Routine Acquired hypothyroidism Expected: 05/08/2025, Expires: 08/07/2025 [facility] Comment on above: Expected: 05/08/2025, Expires: Start: 05-08-2025 End: 08-07-2025 Urate [Mass/volume] in Serum or Plasma URIC ACID Lab Routine Hyperuricemia Expected: 05/08/2025, Expires: 08/07/2025 [facility] Comment on above: Expected: 05/08/2025, Expires: Start: 05-08-2025 End: 08-07-2025 Urinalysis complete panel - Urine URINALYSIS, WITH MICROSCOPIC Lab Routine Essential hypertension Expected: 05/08/2025, Expires: 08/07/2025 [facility] Work Phone: Comment on above: Expected: 05/08/2025, Expires: Start: 05-06-2025 Annual PCP Team Chronic Disease Visit Annual PCP Team Chronic Disease Visit [facility] Start: 05-06-2025 Anxiety Screening Anxiety Screening [facility] Start: 05-06-2025 BP Controlled (<130/80) BP Controlled (<130/80) [facility] Start: 05-06-2025 Medicare Annual Wellness Visit Medicare Annual Wellness Visit [facility] Start: 05-01-2025 End: 05-01-2025 Admission to same day surgery center 05/01/2025 7:30 AM EDT - 05/01/2025 9:09 AM EDT Surgery [facility] [address] [place] [address] Murphy Olmos MD [address] [place] [address] REVERSE TOTAL SHOULDER ARTHROPLASTY [facility] Surgery Comment on above: REVERSE TOTAL SHOULDER ARTHROPLASTY Start: 05-01-2025 End: 05-01-2025 Arthroplasty glenohumeral joint total shoulder REVERSE TOTAL SHOULDER ARTHROPLASTY Glenohumeral arthritis, left Acute pain of left shoulder 05/01/2025 7:30 AM EDT ME OR Start: 05-01-2025 Subsequent hospital visit by physician 05/01/2025 7:30 AM EDT Hospital Encounter [facility] [address] [place] [address] Murphy Olmos MD [address] [place] [address] Glenohumeral arthritis, left [M19.012], Acute pain of left shoulder [M25.512] [facility] Surgery Comment on above: Glenohumeral arthritis, left [M19.012], Acute pain of left shoulder [M25.512] Start: 04-12-2025 End: 04-12-2025 Anesthesia consultation 04/12/2025 9:20 AM EDT PAT Pre Anesthesia [address] [place] [address] 1, Pacc Leroy [address] [place] [address] DOS 05/01 Pre Anesthesia Comment on above: DOS 05/01 Start: 03-24-2025 DIABETES SCREEN DIABETES SCREEN [facility] Start: 02-19-2025 Covid-19 Vaccine ( season) Covid-19 Vaccine ( season) [facility] Start: 02-09-2025 Annual PCP Team Chronic Disease Visit Annual PCP Team Chronic Disease Visit [facility] Start: 02-05-2025 BP Controlled (<130/80) BP Controlled (<130/80) [facility] Start: 01-20-2025 End: 01-20-2025 Patient encounter procedure 01/20/2025 11:00 AM EST Office Visit Family Medicine [facility] [address] [place], [place] [address] Cholo Soriano MD [address] [place] [address] follow up on recent test results [facility] Comment on above: follow up on recent test results Start: 01-09-2025 End: 01-09-2025 Patient encounter procedure 01/09/2025 8:20 AM EST Appointment Radiology [address] [place] [phone] Osteopenia of left femoral neck [M85.852] Radiology Comment on above: Osteopenia of left femoral neck [M85.852 ] Start: 12-30-2024 End: 12-30-2024 Patient encounter procedure 12/30/2024 1:15 PM EST Office Visit Orthopedics [address] [place] [phone] Murphy Olmos MD [address] [place], [place] [phone] injection in left shoulder Orthopedics Comment on above: injection in left shoulder Start: 12-30-2024 End: 12-30-2024 Patient encounter procedure 12/30/2024 11:15 AM EST Office Visit Orthopedics [address] [place] [phone] Murphy Olmos MD [address] [place], [place] [address] S/P Left RTSA 12-21-2024 Orthopedics Comment on above: S/P Left RTSA 12-21-2024 Start: 12-21-2024 End: 12-21-2024 Admission to same day surgery center 12/21/2024 9:44 AM EST - 12/21/2024 11:35 AM EST Surgery [facility] [address] [place] [address] Murphy Olmos MD [address] [place] [address] REVERSE TOTAL SHOULDER ARTHROPLASTY [facility] Surgery Comment on above: REVERSE TOTAL SHOULDER ARTHROPLASTY Start: 12-21-2024 End: 12-21-2024 Arthroplasty glenohumeral joint total shoulder REVERSE TOTAL SHOULDER ARTHROPLASTY Glenohumeral arthritis, left Acute pain of left shoulder 12/21/2024 9:44 AM EST ME OR Start: 12-21-2024 Subsequent hospital visit by physician 12/21/2024 9:44 AM EST Hospital Encounter [facility] Surgery [address] [place] [address] Murphy Olmos MD [address] [facility]. [facility] [address], [place] [address] Glenohumeral arthritis, left [M19.012], Acute pain of left shoulder [M25.512] [facility] Comment on above: Glenohumeral arthritis, left [M19.012], Acute pain of left shoulder [M25.512] Start: 11-25-2024 End: 11-25-2024 Patient encounter procedure 11/25/2024 9:15 AM EST Office Visit Otolaryngology [address] [address] Ladi Rock MD [address] [address] Throat spasms Otolaryngology Comment on above: Throat spasms Start: 11-23-2024 Advance Directive Discussion Advance Directive Discussion [facility] Start: 11-10-2024 End: 11-10-2024 Patient encounter procedure 11/10/2024 7:45 AM EST Appointment Radiology [address] [place] [phone] Osteopenia of left femoral neck [M85.852] Radiology Comment on above: Osteopenia of left femoral neck [M85.852 ] Start: 11-07-2024 End: 11-07-2024 Patient encounter procedure 11/07/2024 8:20 AM EST Office Visit Family Medicine [facility] [address] [place] [address] Hilda Snyder PA-C [address] [place] [place] [address] 6 month follow up Family Medicine [facility] Comment on above: 6 month follow up Start: 11-04-2024 End: 11-04-2024 Patient encounter procedure 11/04/2024 8:10 AM EST Appointment Mammogram [address] [place] [address] Mammogram Start: 10-26-2024 Annual PCP Team Chronic Disease Visit Annual PCP Team Chronic Disease Visit [facility] Start: 10-25-2024 End: 10-25-2024 ambulatory 10/25/2024 7:30 AM EST Results Only [facility] [address] [place] [address] [facility] Start: 10-21-2024 End: 01-20-2025 Basic metabolic 2000 panel - Serum or Plasma BASIC METABOLIC PANEL Lab Routine Essential hypertension Hyperlipidemia, mixed Hyperparathyroidism (HCC) Expected: 10/21/2024, Expires: 01/20/2025 [facility] Work Phone: Comment on above: Expected: 10/21/2024, Expires: Start: 10-21-2024 End: 01-20-2025 LIPID PANEL, NONFASTING LIPID PANEL, NONFASTING Lab Routine Essential hypertension Hyperlipidemia, mixed Expected: 10/21/2024, Expires: 01/20/2025 [facility] Comment on above: Expected: 10/21/2024, Expires: Start: 10-21-2024 End: 01-20-2025 Thyrotropin [Units/volume] in Serum or Plasma THYROID STIMULATING HORMONE Lab Routine Acquired hypothyroidism Expected: 10/21/2024, Expires: 01/20/2025 [facility] Comment on above: Expected: 10/21/2024, Expires: Start: 10-18-2024 End: 10-18-2024 Patient encounter procedure OB/Gynecology Comment on above: annual Start: 10-14-2024 End: 10-14-2024 Patient encounter procedure 10/14/2024 10:50 AM EST Appointment Mammogram [address] [place] [address] Encounter for screening mammogram for breast cancer [Z12.31] Mammogram Comment on above: Encounter for screening mammogram for br east cancer [Z12.31] Start: 10-12-2024 Mammography Mammogram Screening [facility] Start: 10-12-2024 Screening for malignant neoplasm of breast Mammogram Screening [facility] Start: 10-08-2024 BP Controlled (<130/80) BP Controlled (<130/80) [facility] Start: 10-01-2024 DIABETES SCREEN DIABETES SCREEN [facility] Start: 09-09-2024 End: 09-09-2024 Patient encounter procedure Orthopedics Comment on above: NEW CONSULT FOR LT ARM / SHOULDER IN DUY N L shoulder Start: 08-25-2024 End: 08-25-2024 Patient encounter procedure 08/25/2024 11:30 AM EDT Appointment Radiology [address] [place] [address] Thyroid nodule [E04.1] Radiology Comment on above: Thyroid nodule [E04.1] Start: 08-12-2024 End: 08-12-2024 Patient encounter procedure Orthopedics Comment on above: NEW CONSULT FOR LT ARM / SHOULDER IN DUY N L shoulder Start: 08-03-2024 End: 08-03-2024 Patient encounter procedure 08/03/2024 9:00 AM EDT Office Visit [facility] [address] [place], [place] [phone] Murphy Olmos MD [address] [place], [place] [phone] New patient-Left shoulder pain/bone spurs [facility] Comment on above: New patient-Left shoulder pain/bone spur s Start: 08-01-2024 End: 07-08-2025 US Thyroid gland US THYROID/PARATHYROID Radiology Routine Thyroid nodule Expected: 08/01/2024, Expires: 07/08/2025 [facility] Work Phone: Comment on above: Expected: 08/01/2024, Expires: Start: 07-24-2024 Covid-19 Vaccine ( season) Covid-19 Vaccine ( season) [facility] Start: 07-24-2024 Influenza vaccination Influenza Vaccine (#1) [facility] Start: 07-18-2024 End: 07-18-2024 ambulatory 07/18/2024 8:30 AM EDT OT/PT/Speech Visit [facility] [address] [place] [address] Alexsander Mayfield, PT [address] [address] R26.89 (ICD-10-CM) - Balance problems [facility] Comment on above: R26.89 (ICD-10-CM) - Balance problems Start: 06-23-2024 Screening for malignant neoplasm of colon Colorectal Cancer Screening [facility] Comment on above: Postponed from 1994 (Declined at t his time) Start: 06-15-2024 End: 06-15-2024 Patient encounter procedure 06/15/2024 8:00 AM EDT Office Visit Pulmonary Medicine [address] [phone] Natalia Wood MD [address] [place], [place] [phone] LUNG NODULE FOLLOW UP Pulmonary Medicine Comment on above: LUNG NODULE FOLLOW UP Start: 05-20-2024 End: 05-20-2024 Patient encounter procedure 05/20/2024 8:00 AM EDT Appointment Cat Scan [address] [place], [place] [address] Lung nodules [R91.8] Cat Scan Comment on above: Lung nodules [R91.8] Start: 05-19-2024 BP CONTROLLED (<130/80) BP CONTROLLED (<130/80) [facility] Start: 05-19-2024 End: 06-17-2024 Ct thorax w/o contrast material CT CHEST WO IVCON Radiology Routine Lung nodules Expected: 05/19/2024, Expires: 06/17/2024 [facility] Work Phone: Comment on above: Expected: 05/19/2024, Expires: Start: 05-06-2024 End: 05-06-2024 Patient encounter procedure 05/06/2024 8:00 AM EDT Office Visit Family Medicine [facility] [address] [place] [address] Cholo Soriano MD [address] [place] [address] 6 mo follow up Family Medicine [facility] Comment on above: 6 mo follow up Start: 05-03-2024 End: 05-03-2024 Patient encounter procedure Orthopaedics Comment on above: left shoulder pain f/u left shoulder inject ion left shoulder pain f/u Start: 05-02-2024 End: 05-02-2024 ambulatory 05/02/2024 8:30 AM EDT OT/PT/Speech Visit [facility] [address] [place] [address] Alexsander Mayfield, PT [address] [place], [place] [phone] R26.89 (ICD-10-CM) - Balance problems [facility] Comment on above: R26.89 (ICD-10-CM) - Balance problems Start: 04-26-2024 End: 04-26-2024 ambulatory 04/26/2024 7:45 AM EDT Results Only [facility] [address] [place] [address] [facility] Start: 04-24-2024 ANNUAL PCP TEAM CHRONIC DISEASE VISIT ANNUAL PCP TEAM CHRONIC DISEASE VISIT [facility] Start: 04-24-2024 BP CONTROLLED (<130/80) BP CONTROLLED (<130/80) [facility] Start: 04-14-2024 End: 04-14-2024 ambulatory 04/14/2024 11:30 AM EDT OT/PT/Speech Visit [facility] [address] [place] [address] Alexsander Mayfield, PT [address] [place] [address] R26.89 (ICD-10-CM) - Balance problems [facility] Comment on above: R26.89 (ICD-10-CM) - Balance problems Start: 04-11-2024 Colonoscopy COLONOSCOPY [facility] Start: 04-11-2024 COLORECTAL CANCER SCREENING COLORECTAL CANCER SCREENING [facility] Start: 04-11-2024 Screening for malignant neoplasm of colon [facility] Start: 03-31-2024 End: 03-31-2024 ambulatory 03/31/2024 10:00 AM EDT OT/PT/Speech Visit [facility] [address] [place] [address] Alexsander Mayfield, PT [address] [place] [address] R26.89 (ICD-10-CM) - Balance problems [facility] Comment on above: R26.89 (ICD-10-CM) - Balance problems Start: 01-12-2024 [facility] Start: 01-09-2024 Covid-19 Vaccine () Covid-19 Vaccine () [facility] Start: 12-12-2023 [facility] Start: 11-23-2023 Advance Directive Discussion Advance Directive Discussion [facility] Start: 11-05-2023 ANNUAL PCP TEAM CHRONIC DISEASE VISIT ANNUAL PCP TEAM CHRONIC DISEASE VISIT [facility] Start: 10-22-2023 BP CONTROLLED (<130/80) BP CONTROLLED (<130/80) [facility] Start: 10-20-2023 BP CONTROLLED (<130/80) BP CONTROLLED (<130/80) [facility] Start: 10-15-2023 ANNUAL PCP TEAM CHRONIC DISEASE VISIT ANNUAL PCP TEAM CHRONIC DISEASE VISIT [facility] Start: 10-15-2023 BP CONTROLLED (<130/80) BP CONTROLLED (<130/80) [facility] Start: 10-10-2023 Mammography [facility] Start: 10-09-2023 End: 12-09-2023 Basic metabolic 2000 panel - Serum or Plasma BASIC METABOLIC PNL Lab Routine Essential hypertension Hyperparathyroidism (HCC) Expected: 10/09/2023, Expires: 12/09/2023 [facility] Work Phone: Comment on above: Expected: 10/09/2023, Expires: 4 Start: 10-09-2023 End: 12-09-2023 LIPID PANEL, NONFASTING LIPID PANEL, NONFASTING Lab Routine Hyperlipidemia, mixed Expected: 10/09/2023, Expires: 12/09/2023 [facility] Work Phone: Comment on above: Expected: 10/09/2023, Expires: 4 Start: 10-09-2023 End: 12-09-2023 Thyrotropin [Units/volume] in Serum or Plasma TSH BLD Lab Routine Acquired hypothyroidism Expected: 10/09/2023, Expires: 12/09/2023 [facility] Work Phone: Comment on above: Expected: 10/09/2023, Expires: 4 Start: 05-07-2023 BP CONTROLLED (<130/80) BP CONTROLLED (<130/80) [facility] Start: 04-11-2023 Adult depression screening assessment DEPRESSION SCREENING [facility] Start: 04-11-2023 ANNUAL PCP TEAM CHRONIC DISEASE VISIT ANNUAL PCP TEAM CHRONIC DISEASE VISIT [facility] Start: 04-11-2023 BP CONTROLLED (<130/80) BP CONTROLLED (<130/80) [facility] Start: 04-03-2023 End: 06-03-2023 CBC W Auto Differential panel - Blood CBC + DIFF Lab Routine Acquired hypothyroidism Paroxysmal atrial fibrillation (HCC) Low serum vitamin B12 Expected: 04/03/2023, Expires: 06/03/2023 [facility] Work Phone: Comment on above: Expected: 04/03/2023, Expires: 3 Start: 04-03-2023 End: 06-03-2023 Cobalamin (Vitamin B12) [Mass/volume] in Serum or Plasma VITAMIN B12 BLOOD Lab Routine Low serum vitamin B12 Expected: 04/03/2023, Expires: 06/03/2023 [facility] Work Phone: Comment on above: Expected: 04/03/2023, Expires: 3 Start: 04-03-2023 End: 06-03-2023 Comprehensive metabolic 2000 panel - Serum or Plasma COMP METABOLIC PANEL Lab Routine Essential hypertension Hyperlipidemia, mixed Hyperparathyroidism (HCC) Gilbert syndrome Expected: 04/03/2023, Expires: 06/03/2023 [facility] Work Phone: Comment on above: Expected: 04/03/2023, Expires: Start: 04-03-2023 End: 06-03-2023 LIPID PANEL, NONFASTING LIPID PANEL, NONFASTING Lab Routine Essential hypertension Hyperlipidemia, mixed Expected: 04/03/2023, Expires: 06/03/2023 [facility] Work Phone: Comment on above: Expected: 04/03/2023, Expires: 3 Start: 04-03-2023 End: 06-03-2023 Thyrotropin [Units/volume] in Serum or Plasma TSH BLD Lab Routine Acquired hypothyroidism Expected: 04/03/2023, Expires: 06/03/2023 [facility] Work Phone: Comment on above: Expected: 04/03/2023, Expires: Start: 04-03-2023 End: 06-03-2023 Urate [Mass/volume] in Serum or Plasma URIC ACID BLOOD Lab Routine Hyperuricemia Expected: 04/03/2023, Expires: 06/03/2023 [facility] Work Phone: Comment on above: Expected: 04/03/2023, Expires: 3 Start: 04-03-2023 End: 06-03-2023 Urinalysis complete panel - Urine URINALYSIS, WITH MICROSCOPIC Lab Routine Essential hypertension Hyperlipidemia, mixed Expected: 04/03/2023, Expires: 06/03/2023 [facility] Work Phone: Comment on above: Expected: 04/03/2023, Expires: 3 Start: 02-03-2023 ANNUAL PCP TEAM CHRONIC DISEASE VISIT ANNUAL PCP TEAM CHRONIC DISEASE VISIT [facility] Start: 02-03-2023 BP CONTROLLED (<130/80) BP CONTROLLED (<130/80) [facility] Start: 11-23-2022 ADVANCE DIRECTIVE DISCUSSION ADVANCE DIRECTIVE DISCUSSION [facility] Start: 11-17-2022 [facility] Work Phone: Start: 10-04-2022 Mammography MAMMOGRAM [facility] Start: 09-26-2022 End: 11-26-2022 Basic metabolic 2000 panel - Serum or Plasma BASIC METABOLIC PNL Lab Routine Essential hypertension Hyperparathyroidism (HCC) Hyperlipidemia, mixed Expected: 09/26/2022, Expires: 11/26/2022 [facility] Work Phone: Comment on above: Expected: 09/26/2022, Expires: 3 Start: 09-26-2022 End: 11-26-2022 CBC W Auto Differential panel - Blood CBC + DIFF Lab Routine Acquired hypothyroidism Low serum vitamin B12 Expected: 09/26/2022, Expires: 11/26/2022 [facility] Work Phone: Comment on above: Expected: 09/26/2022, Expires: 3 Start: 09-26-2022 End: 11-26-2022 LIPID PANEL, NONFASTING LIPID PANEL, NONFASTING Lab Routine Essential hypertension Hyperlipidemia, mixed Expected: 09/26/2022, Expires: 11/26/2022 [facility] Work Phone: Comment on above: Expected: 09/26/2022, Expires: 3 Start: 09-26-2022 End: 11-26-2022 Thyrotropin [Units/volume] in Serum or Plasma TSH BLD Lab Routine Acquired hypothyroidism Expected: 09/26/2022, Expires: 11/26/2022 [facility] Work Phone: Comment on above: Expected: 09/26/2022, Expires: 3 Start: 09-26-2022 End: 11-26-2022 Urinalysis complete panel - Urine URINALYSIS, WITH MICROSCOPIC Lab Routine Essential hypertension Mixed hyperglyceridemia Expected: 09/26/2022, Expires: 11/26/2022 [facility] Work Phone: Comment on above: Expected: 09/26/2022, Expires: 3 Start: 09-18-2022 End: 10-02-2022 Influenza virus A and B RNA and SARS-CoV-2 (COVID-19) N gene panel - Respiratory specimen by MARY with probe detection COVID WITH FLUA+B, ROUTINE Microbiology Routine At increased risk of exposure to COVID-19 virus Acute cough Expected: 09/18/2022, Expires: 10/02/2022 [facility] Work Phone: Comment on above: Expected: 09/18/2022, Expires: 2 Start: 07-24-2022 Influenza vaccination INFLUENZA (#1) [facility] Start: 04-11-2022 End: 06-11-2022 Folate [Mass/volume] in Serum or Plasma FOLATE SERUM Lab Routine Low serum vitamin B12 Expected: 04/11/2022, Expires: 06/11/2022 [facility] Work Phone: Comment on above: Expected: 04/11/2022, Expires: 2 Start: 04-11-2022 End: 06-11-2022 Urate [Mass/volume] in Serum or Plasma URIC ACID BLOOD Lab Routine Hyperuricemia Expected: 04/11/2022, Expires: 06/11/2022 [facility] Work Phone: Comment on above: Expected: 04/11/2022, Expires: 2 Start: 04-11-2022 End: 06-11-2022 VITAMIN B12 BLOOD VITAMIN B12 BLOOD Lab Routine Low serum vitamin B12 Expected: 04/11/2022, Expires: 06/11/2022 [facility] Work Phone: Comment on above: Expected: 04/11/2022, Expires: 2 Start: 04-01-2022 Adult depression screening assessment DEPRESSION SCREENING [facility] Start: 11-23-2021 ADVANCE DIRECTIVE DISCUSSION ADVANCE DIRECTIVE DISCUSSION [facility] Start: 11-23-2021 DEPRESSION ASSESSMENT DEPRESSION ASSESSMENT [facility] Start: 02-02-2018 End: 02-02-2018 Appointment Appointment [facility] Work Phone: Start: 08-06-2017 End: 08-06-2017 PHARMACOVIGILANCE SAFETY EXPERT PHARMACOVIGILANCE SAFETY EXPERT [employer] [facility] Work Phone: Start: 08-06-2017 End: 08-06-2017 Follow Up Appt 6 months Follow Up Appt 6 months [facility] Work Phone: Start: 08-06-2017 End: 08-06-2017 Appointment Appointment [employer] Work Phone: Start: 02-06-2017 End: 02-06-2017 PHARMACOVIGILANCE SAFETY EXPERT PHARMACOVIGILANCE SAFETY EXPERT [employer] [facility] Work Phone: Start: 02-06-2017 End: 02-06-2017 Follow Up Appt 6 months Follow Up Appt 6 months [facility] Work Phone: Start: 02-06-2017 End: 02-06-2017 PHARMACOVIGILANCE SAFETY EXPERT [employer] [facility] Work Phone: Start: 02-06-2017 End: 02-06-2017 Follow Up Appt 6 months Follow Up Appt 6 months [facility] Work Phone: Start: 11-10-2016 End: 02-04-2017 Ecg routine ecg w/least 12 lds w/i&r EKG (In office) [employer] [facility] Work Phone: Start: 11-10-2016 End: 02-04-2017 Electrocardiogram, complete EKG (In office) [employer] [facility] Phone: Start: 09-04-2016 End: 09-04-2016 Follow Up BP Check Follow Up BP Check [employer] [facility] Work Phone: Start: 09-04-2016 End: 10-31-2016 Natriuretic peptide B mass conc (Bld) *Brain Natriuretic Peptide BNP [employer] [facility] Work Phone: Start: 09-04-2016 End: 10-31-2016 BNP *Brain Natriuretic Peptide BNP [employer] [facility] Work Phone: Start: 09-04-2016 End: 09-04-2016 Follow Up BP Check Follow Up BP Check [employer] [facility] Work Phone: Start: 07-31-2016 End: 07-31-2016 PHARMACOVIGILANCE SAFETY EXPERT PHARMACOVIGILANCE SAFETY EXPERT [facility] Work Phone: Start: 07-31-2016 End: 07-31-2016 Follow Up Appt 6 months Follow Up Appt 6 months [facility] Work Phone: Start: 07-31-2016 End: 07-31-2016 PHARMACOVIGILANCE SAFETY EXPERT PHARMACOVIGILANCE SAFETY EXPERT [facility] Work Phone: Start: 07-31-2016 End: 07-31-2016 Follow Up Appt 6 months Follow Up Appt 6 months [facility] Work Phone: Start: 04-22-2016 End: 04-22-2016 Follow Up Appt 3 months Follow Up Appt 3 months [facility] Work Phone: Start: 04-22-2016 End: 04-22-2016 MMM MMM [facility] Work Phone: Start: 04-22-2016 End: 04-22-2016 Follow Up Appt 3 months Follow Up Appt 3 months [facility] Work Phone: Start: 04-22-2016 End: 04-22-2016 MMM MMM [facility] Work Phone: Start: 03-25-2016 End: 07-23-2016 Venous doppler Venous doppler [facility] Work Phone: Start: 03-25-2016 End: 07-23-2016 Venous doppler Venous doppler [facility] Work Phone: Start: 01-18-2016 End: 01-18-2016 Echocardiography Echocardiogram (complete) [facility] Work Phone: Start: 01-18-2016 End: 01-18-2016 Follow Up Appt 3 months Follow Up Appt 3 months [facility] Work Phone: Start: 01-18-2016 End: 01-18-2016 MMM MMM [facility] Work Phone: Start: 01-18-2016 End: 01-18-2016 Echocardiography Echocardiogram (complete) [facility] Work Phone: Start: 01-18-2016 End: 01-18-2016 Follow Up Appt 3 months Follow Up Appt 3 months [facility] Work Phone: Start: 01-18-2016 End: 01-18-2016 MMM MMM [facility] Work Phone: Start: 07-25-2015 End: 07-25-2015 PHARMACOVIGILANCE SAFETY EXPERT PHARMACOVIGILANCE SAFETY EXPERT [facility] Work Phone: Start: 07-25-2015 End: 07-25-2015 Follow Up Appt 6 months Follow Up Appt 6 months [facility] Work Phone: Start: 07-25-2015 End: 07-25-2015 PHARMACOVIGILANCE SAFETY EXPERT PHARMACOVIGILANCE SAFETY EXPERT [facility] Work Phone: Start: 07-25-2015 End: 07-25-2015 Follow Up Appt 6 months Follow Up Appt 6 months [facility] Work Phone: Start: 02-06-2015 End: 02-06-2015 Echocardiography Echocardiogram (complete) [facility] Work Phone: Start: 02-06-2015 End: 02-06-2015 Follow Up Appt 6 months Follow Up Appt 6 months [facility] Work Phone: Start: 02-06-2015 End: 02-06-2015 MMM MMM [facility] Work Phone: Start: 02-06-2015 End: 02-06-2015 Echocardiography Echocardiogram (complete) [facility] Work Phone: Start: 02-06-2015 End: 02-06-2015 Follow Up Appt 6 months Follow Up Appt 6 months [facility] Work Phone: Start: 02-06-2015 End: 02-06-2015 MMM MMM [facility] Work Phone: Start: 10-17-2014 FECAL OCCULT BLOOD FECAL OCCULT BLOOD [facility] Start: 10-17-2014 Screening for malignant neoplasm of colon Fecal Occult Blood [facility] Start: 09-08-2013 End: 09-08-2013 PHARMACOVIGILANCE SAFETY EXPERT PHARMACOVIGILANCE SAFETY EXPERT [facility] Work Phone: Start: 09-08-2013 End: 09-08-2013 Follow Up Appt 1 year Follow Up Appt 1 year [facility] Work Phone: Start: 09-08-2013 End: 09-08-2013 PHARMACOVIGILANCE SAFETY EXPERT PHARMACOVIGILANCE SAFETY EXPERT [facility] Work Phone: Start: 09-08-2013 End: 09-08-2013 Follow Up Appt 1 year Follow Up Appt 1 year [facility] Work Phone: Start: 09-17-2012 End: 09-20-2012 *BMP *BMP [facility] Work Phone: Start: 09-17-2012 End: 09-17-2012 Carotid duplex Carotid duplex [facility] Work Phone: Start: 09-17-2012 End: 07-11-2015 Follow Up Appt 1 year Follow Up Appt 1 year [facility] Work Phone: Start: 09-17-2012 End: 09-20-2012 *BMP *BMP [facility] Work Phone: Start: 09-17-2012 End: 09-17-2012 Carotid duplex Carotid duplex [facility] Work Phone: Start: 09-17-2012 End: 07-11-2015 Follow Up Appt 1 year Follow Up Appt 1 year [facility] Work Phone: Start: 06-15-2012 End: 06-15-2012 Echocardiography Echocardiogram (complete) [facility] Work Phone: Start: 06-15-2012 End: 06-15-2012 Follow Up Appt 3 months Follow Up Appt 3 months [facility] Work Phone: Start: 06-15-2012 End: 06-15-2012 Echocardiography Echocardiogram (complete) [facility] Work Phone: Start: 06-15-2012 End: 06-15-2012 Follow Up Appt 3 months Follow Up Appt 3 months [facility] Work Phone: Start: 2009 RSV Vaccine (1 - 1-dose 60+ series) RSV Vaccine (1 - 1-dose 60+ series) [facility] Start: 1994 COLOGUARD (FIT-DNA) COLOGUARD (FIT-DNA) [facility] Start: [address] COLONOGRAPHY [facility] Start: 1994 Screening for malignant neoplasm of colon [facility] Start: 1994 SIGMOIDOSCOPY SIGMOIDOSCOPY [facility] Start: 1967 Anxiety Screening Anxiety Screening [facility] Start: 1967 BP CONTROLLED (<130/80) BP CONTROLLED (<130/80) [facility] COVID & INFLUENZA A/ B & RSV PCR, ROUTINE COVID & INFLUENZA A/B & RSV PCR, ROUTINE Microbiology Routine Acute cough Ordered: 09/09/2024 [facility] Work Phone: Comment on above: Ordered: 09/09/2024 COVID & INFLUENZA A/ B & RSV PCR, ROUTINE COVID & INFLUENZA A/B & RSV PCR, ROUTINE Microbiology Routine URI, acute Ordered: 11/15/2024 [facility] Work Phone: Comment on above: Ordered: 11/15/2024 COVID & INFLUENZA A/ B & RSV PCR, ROUTINE COVID & INFLUENZA A/B & RSV PCR, ROUTINE Microbiology Routine URI, acute Exposure to influenza Ordered: 12/23/2024 [facility] Work Phone: Comment on above: Ordered: 12/23/2024 CT Chest WO contrast CT CHEST WO IVCON Radiology Routine Lung nodules 05/23/2024 8:49 AM EDT [facility] Work Phone: End: 2025 CT Facial bones WO contrast CT FACIAL BONE/ALEKSANDRA WO IVCON Radiology Routine Pain of cheek 1 Occurrences starting 02/10/2024 until 2025 [facility] Work Phone: Comment on above: 1 Occurrences starting 02/10/2024 until 2025 End: 12-28-2025 DBT Breast - bilateral screening BEBETO SCREENING W KAI Radiology Routine Encounter for screening mammogram for malignant neoplasm of breast 1 Occurrences starting 11/28/2024 until 12/28/2025 [facility] Work Phone: Comment on above: 1 Occurrences starting 11/28/2024 until 12/28/2025 DXA Skeletal system.axial Views for bone density DXA-AXIAL SKELETON Radiology Routine Osteopenia of left femoral neck 01/09/2025 8:45 AM EST [facility] Work Phone: End: 06-01-2026 EGD DIAGNOSTIC EGD DIAGNOSTIC Endoscopy Routine Esophageal dysphagia Abnormal upper gastrointestinal barium series Esophageal spasm Duodenitis RUQ pain 1 Occurrences starting 06/01/2025 until 06/01/2026 [facility] Comment on above: 1 Occurrences starting 06/01/2025 until 06/01/2026 EGD DIAGNOSTIC EGD DIAGNOSTIC E ndoscopy Routine Esophageal dysphagia Abnormal upper gastrointestinal barium series Esophageal spasm Duodenitis RUQ pain 07/26/2025 11:27 AM EDT [facility] Work Phone: End: 10-08-2024 BEBETO SCREENING W KAI BEBETO SCREENING W KAI Radiology Routine Encounter for screening mammogram for malignant neoplasm of breast 1 Occurrences starting 09/09/2023 until 10/08/2024 [facility] Work Phone: Comment on above: 1 Occurrences starting 09/09/2023 until 10/08/2024 End: 11-11-2024 BEBETO SCREENING W KAI BEBETO SCREENING W KAI Radiology Routine Encounter for screening mammogram for breast cancer 1 Occurrences starting 10/13/2023 until 11/11/2024 [facility] Work Phone: Comment on above: 1 Occurrences starting 10/13/2023 until 11/11/2024 End: 03-09-2025 MR Wrist - right WO contrast MRI WRIST WO IVCON RIGHT Radiology SOBEIDA Closed nondisplaced fracture of scaphoid of right wrist, unspecified portion of scaphoid, initial encounter 1 Occurrences starting 02/08/2024 until 03/09/2025 [facility] Work Phone: Comment on above: 1 Occurrences starting 02/08/2024 until 03/09/2025 Patient Education [facility] Work Phone: [facility] Work Phone: Tissue Pathology bio psy report [facility] Work Phone: Comment on above: Release Upon Ordering for 1 Occurrences starting 07/26/2025 End: 11-11-2024 Unlisted diagnostic radiographic procedure BMD BODY COMPOSITION STUDY Radiology Routine Osteopenia of left femoral neck 1 Occurrences starting 10/13/2023 until 11/11/2024 [facility] Work Phone: Comment on above: 1 Occurrences starting 10/13/2023 until 11/11/2024 End: 07-01-2026 US Abdomen RUQ US ABD RIGHT UPPER QUADRANT Radiology Routine RUQ pain 1 Occurrences starting 06/01/2025 until 07/01/2026 [facility] Work Phone: Comment on above: 1 Occurrences starting 06/01/2025 until 07/01/2026 US Abdomen RUQ US ABD RIGHT UPP ER QUADRANT Radiology Routine RUQ pain 06/12/2025 8:08 AM EDT [facility] End: 06-12-2025 Us abdominal real time w/image limited [facility] Work Phone: Comment on above: ONCE for 1 Occurrences starting 06/12/20 until 06/12/2025 End: 05-11-2023 US KIDNEY/BLADDER US KIDNEY/BLADDER Radiology Routine Bilateral renal cysts RUQ pain 1 Occurrences starting 04/11/2022 until 05/11/2023 [facility] Work Phone: Comment on above: 1 Occurrences starting 04/11/2022 until 05/11/2023 End: 10-20-2023 US LEG VEIN DVT UNL VAS LAB US LEG VEIN DVT UNL VAS LAB Vascular Lab Routine Left leg pain 1 Occurrences starting 10/20/2022 until 10/20/2023 [facility] Work Phone: Comment on above: 1 Occurrences starting 10/20/2022 until 10/20/[address] [facility] Work Phone: US Thyroid gland US THYROID/PARA THYROID Radiology Routine Thyroid nodule 08/25/2024 11:39 AM EDT [facility] Work Phone: XR HAND GENERAL 3V PA/LAT/OBL RIGHT XR HAND GENERAL 3V PA/LAT/OBL RIGHT Radiology Routine Closed displaced fracture of phalanx of right little finger with routine healing, unspecified phalanx, subsequent encounter 10/28/2023 12:37 PM EST [facility] Work Phone: XR Shoulder - left 3 Views XR SHOULDER GENERAL 3V OR MORE AP/TRUE AP/OTHER LEFT Radiology Routine Chronic left shoulder pain 1 Occurrences starting 07/26/2024 [facility] Work Phone: Comment on above: 1 Occurrences starting 07/26/2024 XR Shoulder - left 3 Views XR SHOULDER GENERAL 3V OR MORE AP/TRUE AP/OTHER LEFT Radiology Routine Chronic left shoulder pain 09/09/2024 9:47 AM EDT [facility] Work Phone: [facility] Immunizations Immunization Date Immunization Notes Care Provider [facility] 04-03-2025 COVID-19 vaccine, ag e 12+ yr ([employer] [facility]) Cholo Soriano MD Work Phone: [facility] 04-03-2025 COVID-19 vaccine, unspecified formulation Starla Segura 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[employer] Work Phone: [facility] 08-22-2024 COVID-19 vaccine, unspecified formulation Cholo Soriano MD Work Phone: [facility] 08-22-2024 influenza virus vacc ine, unspecified formulation Cholo Soriano MD Work Phone: [facility] 05-06-2024 COVID-19 vaccine, ag e 12+ yr, season ([employer]) Cholo Soriano MD Work Phone: [facility] 12-03-2023 respiratory syncytia l virus (RSV) vaccine, adjuvanted (AREXVY) Denita Martinez APRN.[facility] Work Phone: [facility] 09-08-2023 COVID-19 vaccine, ag e 12+ yr, season ([employer]) Magda Moise MD Work Phone: [facility] 09-08-2023 influenza (HD-IIV4) vaccine, age 65+ yr, high dose, quadrivalent, PF (FLUZONE HIGH-DOSE) Magda Moise MD Work Phone: [facility] 09-08-2023 influenza virus vacc ine, unspecified formulation Ct (I-Stat) Work Phone: [facility] 09-02-2022 influenza, high dose seasonal, preservative-free Cholo Soriano MD Work Phone: [facility] Work Phone: 09-02-2022 tetanus toxoid, redu isis diphtheria toxoid, and acellular pertussis vaccine, adsorbed Cholo Soriano MD Work Phone: [facility] Work Phone: 07-31-2022 COVID-19 booster vaccine, age 18+ yr, bivalent (MODERNA) Cholo Soriano MD Work Phone: [facility] 02-19-2022 COVID-19 original vaccine, age 12+ yr, monovalent ([employer] - STOKES [employer]) Cholo Soriano MD Work Phone: [facility] 09-04-2021 zoster vaccine recombinant Eber Moore MD Work Phone: [facility] 08-19-2021 COVID-19 vaccine, ag e 12+ yr ([employer]-BIONTECH - PURPLE TOP) Eber Moore MD Work Phone: [facility] 08-07-2021 influenza, high-dose , quadrivalent vaccine (FLUZONE HIGH DOSE QUADRIVALENT) Eber Moore MD Work Phone: [facility] Work Phone: 05-29-2021 zoster vaccine recombinant Eber Moore MD Work Phone: [facility] 01-16-2021 COVID-19 vaccine, ag e 12+ yr (P[employer]ER-BION[employer] - PURPLE TOP) Eber Moore MD Work Phone: [facility] 12-26-2020 COVID-19 vaccine, ag e 12+ yr (P[employer]ZER-BIONTECH - PURPLE TOP) Eber Moore MD Work Phone: [facility] 09-10-2020 pneumococcal conjuga te vaccine, 13 valent Eber Moore MD Work Phone: [facility] 08-23-2020 influenza, high dose seasonal, preservative-free Eber Moore MD Work Phone: [facility] 09-07-2019 influenza, high dose seasonal, preservative-free Eber Moore MD Work Phone: [facility] 08-24-2018 influenza, high dose seasonal, preservative-free Eber Moore MD Work Phone: [facility] 08-23-2018 Influenza virus vaccine [facility] 08-23-2018 influenza, seasonal, injectable, preservative free Eber Moore MD Work Phone: [facility] Work Phone: 09-02-2017 influenza, high dose seasonal, preservative-free Eber Moore MD Work Phone: [facility] 09-08-2016 influenza, seasonal, injectable Eber Moore MD Work Phone: [facility] 01-12-2016 TD(adult) unspecifie d formulation Eber Moore MD Work Phone: [facility] 01-12-2016 tetanus and diphther ia toxoids, adsorbed, preservative free, for adult use (2 Lf of tetanus toxoid and 2 Lf of diphtheria toxoid) Eber Moore MD Work Phone: [facility] 12-25-2015 tetanus and diphther ia toxoids, adsorbed, preservative free, for adult use (5 Lf of tetanus toxoid and 2 Lf of diphtheria toxoid) Cholo Soriano MD Work Phone: [facility] 09-04-2015 influenza virus vacc ine, whole virus Eber Moore MD Work Phone: [facility] 09-04-2015 influenza, high dose seasonal, preservative-free Eber Moore MD Work Phone: [facility] 09-15-2014 influenza, seasonal, injectable Eber Mooer MD Work Phone: [facility] 06-28-2014 pneumococcal polysaccharide vaccine, 23 valent Eber Moore MD Work Phone: [facility] 08-01-2013 influenza virus vacc ine, unspecified formulation Eber Moore MD Work Phone: [facility] 08-01-2013 influenza, injectabl e, quadrivalent, preservative free Eber Moore MD Work Phone: [facility] 01-26-2013 hepatitis B vaccine, adult dosage Eber Moore MD Work Phone: [facility] 09-20-2012 influenza virus vacc ine, whole virus Eber Moore MD Work Phone: [facility] 09-20-2012 novel influenza-H1N1 -09, all formulations Eber Moore MD Work Phone: [facility] 09-01-2012 hepatitis B vaccine, adult dosage Eber Moore MD Work Phone: [facility] 07-28-2012 hepatitis B vaccine, adult dosage Eber Moore MD Work Phone: [facility] 05-20-2012 zoster vaccine, live Eber mayen MD Work Phone: [facility] 09-24-2010 influenza virus vacc ine, unspecified formulation Eber Moore MD Work Phone: [facility] Work Phone: 03-15-2009 tetanus toxoid, redu isis diphtheria toxoid, and acellular pertussis vaccine, adsorbed Eber Moore MD Work Phone: [facility] 10-16-2006 influenza virus vacc ine, unspecified formulation Eber Moore MD Work Phone: [facility] Work Phone: Payers Date Payer Category Payer Self-pay [id number] 2019 Private Health Insurance MMO MED ICARE SUPPLEMENT Member Subscriber Plan / Payer (Effective 2019-Present) Name: DorindayaniKatelynn Relation to Subscriber: Self Name: Katelynn Campuzano Payer ID: Not on file Type: Indemnity Address: [place] [id number] 2019 Unknown MMO MMO MEDICARE SUPPLEMENT [id number] 2019-Present [phone] [place] [address] Indemnity [id number] 2019 Unknown MMO MMO MEDICARE SUPPLEMENT [id number] 2019-Present [phone] [place], [place] [address] Indemnity [id number] 2019 Unknown [id number] 2016 Unknown [id number] 2014 Medicare MEDICARE MEDICAR E A AND B [id number] 2014-Present [phone] [place] [address] Medicare [id number] 2014 Medicare [id number] 2014 Medicare [id number] Unknown [id number] Unknown [id number] Unknown [id number] Unknown [id number] Unknown [id number] Social History Date Type Detail Facility Start: 08-29-2022 End: 04-10-2025 Tobacco smoking status NHIS Never smoked tobacco [facility] Start: 02-03-2022 End: 06-22-2025 Alcohol intake Lifetime non-drinker (finding) [facility] Start: 12-09-2019 End: 11-03-2022 History SDOH Alcohol Frequency 1 [facility] Start: 07-23-2020 End: 11-03-2022 History SDOH Social Connections Phone 4 [facility] Start: 07-23-2020 End: 11-03-2022 History SDOH Social Connections Get Together 2 [facility] Start: 09-16-2019 End: 11-03-2022 History SDOH Social Connections Living 3 [facility] Start: 07-23-2020 Education 17 [facility] Start: 1950 Sex Assigned At Not on file [facility] Start: 02-15-2022 End: 10-22-2022 Exposure to SARS-CoV-2 (event) Not sure [facility] Start: 03-05-2022 End: 01-12-2024 Tobacco smoking status NHIS Unknown if ever smoked [facility] Start: 01-27-2019 None [facility] Start: 07-09-2016 Spouse/ Significant Other [facility] Start: 07-09-2016 Non-smoker [facility] Start: 1950 Sex Assigned At Female [facility] Start: 08-29-2022 Tobacco use and exposure Smokeless tobacco non-user [facility] Start: 10-08-2022 End: 11-03-2022 History SDOH Alcohol Std Drinks 0 [facility] Start: 10-08-2022 History SDOH Physical Activity MPS 5 [facility] Start: 11-03-2022 End: 05-19-2023 History of Social function [facility] Start: 11-03-2022 End: 05-19-2023 Social connection and isolation panel [facility] Do you belong to any clubs or organizations such as uatsdin groups, unions, fraternal or athletic groups, or school groups? Yes [facility] Are you now , , , , never or living with a partner? [facility] How often to you hav e a drink containing alcohol? Never [facility] Start: 10-24-2012 How many standard drinks containing alcohol do you have on a typical day? Patient does not drink [facility] How hard is it for y ou to pay for the very basics like food, housing, medical care, and heating Somewhat hard [facility] Do you feel stress - tense, restless, nervous, or anxious, or unable to sleep at night because your mind is troubled all the time - these days [OSQ] Only a little [facility] (I/We) worried jessica er (my/our) food would run out before (I/we) got money to buy more. Never true [facility] At any time in the p ast 12 months, were you homeless or living in [facility] [including now]? No [facility] Start: 09-06-2019 Gender identity Identifies as female gender (finding) [facility] How hard is it for y ou to pay for the very basics like food, housing, medical care, and heating Not very hard [facility] How often to you hav e a drink containing alcohol? Monthly or less [facility] Goals Date Patient Goal Desired Activity /State Personal health goal Comment on above: Formatting of this n ote might be different from the original. Pt states wants to eventually not have to take Flecainide and Xarelto Personal health goal Comment on above: Formatting of this n ote might be different from the original. Pt states wants to eventually not have to take Flecainide and Xarelto Functional Status Date Assessment Result Facility 09-26-2019 Are you deaf, or do you have serious difficulty hearing No 09/26/2019 4:32 PM Naveen Barrientos III, MD No [facility] 09-26-2019 Are you blind, or do you have serious difficulty seeing, even when wearing glasses No 09/26/2019 4:32 PM Naveen Barrientos III, MD No [facility] 09-26-2019 Do you have serious difficulty walking or climbing stairs No 09/26/2019 4:32 PM Naveen Barrientos III, MD [facility] 09-26-2019 Do you have difficul ty dressing or bathing No 09/26/2019 4:32 PM Naveen Barrientos III, MD [facility] 09-26-2019 Because of a physica l, mental, or emotional condition, do you have difficulty doing errands alone such as visiting a physician's office or shopping No 09/26/2019 4:32 PM Naveen Barrientos III, MD [facility] Mental Status Date Assessment Result Facility 09-23-2022 Cognitive function Voice/Name;To [facility]/Ana Lilia ng;Light Pain;Deep Pain [facility] Work Phone: 09-26-2019 Because of a physica l, mental, or emotional condition, do you have serious difficulty concentrating, remembering, or making decisions No 09/26/2019 4:32 PM Naveen Barrientos III, MD No [facility] Clinical Notes 12-02-2018 to 09-14-2025 Sandy Victoria, LINDY - 07/26/2025 12:03 PM Sandy Montemayor RN - 07/26/2025 12:03 PM Irish Cortez RN - 07/26/2025 9:51 AM Ivelisse Nagel APRN.DEBURRER MACHINE - 07/26/2025 10:30 AM EDT Note Date & Type Note Facility 09-14-2025 Note SARS-COV-2 (AGENT OF COVID-19) RNA: Not detected INFLUENZA A RNA: Not detected INFLUENZA B RNA: Not detected RESPIRATORY SYNCYTIAL VIRUS (RSV) RNA: Not detected [facility] Comment on above: Performed By: #### 9 [id number] ####[facility] LABCLIA [id number] [address] [place] 09-14-2025 Note HNO ID: [id number] Author: SHARI JOSEPH APRN.DEBURRER MACHINE Service: ? Author Type: Nurse Practitioner Type: Progress Notes Filed: 09/14/2025 16:29 Note Text: [facility] Recording using [employer] software for draft documentation of the visit was discussed with the patient/authorized sales representative business courses; all questions welcomed and answered. Patient/authorized sales representative business courses agreed to proceed Subjective Katelynn Campuzano is a 75 year old female. Patient presents with: Cough: Fever, chills x 2 days HPI The patient is a 75-year-old female presenting with acute onset cough, fever, and chills. Upper Respiratory Symptoms: - Onset of symptoms began Thursday night with persistent cough. - Thought symptoms were resolving on Thursday, but cough persisted last night. - Today, experiencing fever and chills. - Denies generalized myalgias, otalgia, odynophagia, cephalgia, cervicalgia, or abdominal pain. - Cough was productive yesterday with phlegm, but less so today. - Taking Tussin to suppress cough; considered Delsym but avoided due to sulfite content and known sulfa allergy. - Denies hemoptysis. - Recent exposure to an individual with a cold at a music concert. Review of Systems Constitutional: (+) fever, (+) chills Head: (-) headache Ears/Nose/Mouth/Throat: (+) hearing difficulty, (-) ear pain, (-) sore throat Neck: (-) neck pain Respiratory: (+) cough, (-) hemoptysis Cardiac: (-) chest pain Gastrointestinal: (-) abdominal discomfort Musculoskeletal: (+) myalgias Objective BP 160/78 Pulse 95 Temp (!) 38.2 ?C (100.8 ?F) Resp 21 Wt 116.3 kg (256 lb 6.3 oz) SpO2 98% BMI 40.16 kg/m? Physical Exam Vitals and nursing note reviewed. Constitutional: General: She is not in acute distress. Appearance: Normal appearance. She is not ill-appearing or toxic-appearing. HENT: Head: Normocephalic and atraumatic. Right Ear: Ear canal and external ear normal. Left Ear: Ear canal and external ear normal. Ears: Comments: TM's slightly bulging with clear fluid Nose: Congestion (mild mucosal edema) and rhinorrhea (clear fluid in nares) present. Right Turbinates: Swollen. Left Turbinates: Swollen. Right Sinus: No maxillary sinus tenderness or frontal sinus tenderness. Left Sinus: No maxillary sinus tenderness or frontal sinus tenderness. Mouth/Throat: Mouth: Mucous membranes are moist. Pharynx: Oropharynx is clear. Posterior oropharyngeal erythema (mild with clear fluid) present. No pharyngeal swelling or oropharyngeal exudate. Eyes: Extraocular Movements: Extraocular movements intact. Conjunctiva/sclera: Conjunctivae normal. Pupils: Pupils are equal, round, and reactive to light. Cardiovascular: Rate and Rhythm: Normal rate and regular rhythm. Pulses: Normal pulses. Heart sounds: Normal heart sounds. Pulmonary: Effort: Pulmonary effort is normal. Breath sounds: Normal breath sounds. No wheezing or rhonchi. Abdominal: General: Bowel sounds are normal. Palpations: Abdomen is soft. Musculoskeletal: Cervical back: Normal range of motion and neck supple. No tenderness. Lymphadenopathy: Cervical: No cervical adenopathy. Skin: Capillary Refill: Capillary refill takes less than 2 seconds. Neurological: General: No focal deficit present. Mental Status: She is alert and oriented to person, place, and time. General: No acute distress. HEENT: Oropharynx without erythema or exudate. Resp: Lungs clear to auscultation bilaterally. ASSESSMENT/PLAN: 1. Viral upper respiratory tract infection with cough - ICD9: 465.9, ICD10: J06.9 - Discussed viral etiology and rationale for treatment. - Symptomatic treatment with prn analgesia - Supportive care with fluids and rest - COVID AND INFLUENZA A/B AND RSV PCR, ROUTINE - BENZONATATE 100 MG CAPSULE - SALINE NASAL 0.65 % SPRAY AEROSOL - FLUTICASONE PROPIONATE 50 MCG/ACTUATION NASAL SPRAY,SUSPENSION WOULD LIKE ANTI-VIRALS IF POSITIVE FOR FLU OR COVID-19 Patient given educational materials - see patient instructions. Discussed use, benefit, and side effects of prescribed medications. All patient questions answered. Pt voiced understanding and agrees with treatment plan. Patient advised to follow up with PCP within one week, or sooner if symptoms worsen or persist. If symptoms become severe- GO TO ED. Patient agreeable with treatment plan. Shari Joseph APRN.DEBURRER MACHINE History and Record Review External record(s) reviewed: prior outpatient record. Findings from review of outpatient records: NA Systemic symptoms present included: Differential Diagnoses - Viral URI with cough is more likely for the following reason(s): suggested by HANDP - Bacterial Sinusitis is less likely for the following reason(s): duration, symptoms, HANDP not suggestive Disposition The patient was discharged. The following prescription medication(s) were considered but ultimately not given after discussion wi (more content not included)... [facility] 08-25-2025 Note HNO ID: [id number] Author: LEIGH FRANCIS RDMS Service: ? Author Type: Battery Test Engineer Type: Progress Notes Filed: 08/25/2025 08:20 Note Text: Radiology Service Progress Note PATIENT NAME: Katelynn Campuzano DATE OF SERVICE: August 25, 2025 TIME: 8:20 AM PATIENT IDENTITY VERIFICATION COMPLETED USING TWO [...] place to prevent falls during this visit? Offered Assistance with Transfers/Clothing, Increased Observations by Caregivers, and Patient Refused Interventions/Assistance PATIENT GENDER DATA: Assigned female at . status: : No status: NO. PATIENT RELEVANT IMPLANT DATA REVIEWED: Not Applicable PATIENT PRESENTS WITH AN IMPLANTABLE OR ATTACHED COMMERCIAL MAKEUP ARTIST: No RADIOLOGY DEPARTMENT: Ultrasound PERIPHERAL IV DATA: Not applicable SIGNED BY: Leigh Francis RDMS August 25, 2025 8:20 AM [facility] 07-26-2025 Nurse Note Patient sat at bedside and dressed self. Patient transferred to wheelchair independently and discharged from PACU in stable condition. Sandy Victoria RN [facility] 07-26-2025 Nurse Note Patient sat at bedside and dressed self. Patient transferred to wheelchair independently and discharged from PACU in stable condition. Sandy Victoria RN Patient has concerns regarding things in her throat. She reports that during one of her cardiac ablations, she sustained a hematoma from the intubation. She has not had any surgery since that time. She did follow up with ENT at the time and has not had issue. Instructed patient to talk with Dr. Gamez and anesthesia regarding this, she has paperwork regarding this issue. documented in this encounter [facility] 07-26-2025 Note Formatting of this n ote might be different from the original. Go directly to the emergency room and notify the office of your provider who performed your procedure if you notice any of the following... Chills and/or fever over 101 degrees within 24 hours of your procedure Persistent vomiting Severe abdominal pain, other than gas cramps Chest pain or shortness of breath Black, tarry stools Any bleeding from your rectum- exceeding one tablespoon Post-Op/Post-Procedure Diagnosis: 1) mildly tortuous esophagus 2) LA grade A esophagitis 3) gastric body polyps, biopsied 4) Prominent Migel's glands in duodenal bulb, biopsied 5) Lymphangiectasia in the second portion of the duodenum 6) otherwise normal duodenum, biopsies of the second portion of the duodenum Recommendations: Follow up pathology Resume ludin 07/27/2025 [facility] 07-26-2025 Miscellaneous Notes Go directly to the emergency room and notify the office of your provider who performed your procedure if you notice any of the following... Chills and/or fever over 101 degrees within 24 hours of your procedure Persistent vomiting Severe abdominal pain, other than gas cramps Chest pain or shortness of breath Black, tarry stools Any bleeding from your rectum- exceeding one tablespoon Post-Op/Post-Procedure Diagnosis: 1) mildly tortuous esophagus 2) LA grade A esophagitis 3) gastric body polyps, biopsied 4) Prominent Migel's glands in duodenal bulb, biopsied 5) Lymphangiectasia in the second portion of the duodenum 6) otherwise normal duodenum, biopsies of the second portion of the duodenum Recommendations: Follow up pathology Resume ludin 07/27/2025 documented in this encounter [facility] 07-26-2025 History and physical note HISTORY AND PHYSICAL EXAMINATION SERVICE DATE: 07/26/2025 SERVICE TIME: 09:40 AM PRIMARY CARE PHYSICIAN: Cholo Soriano MD REASON FOR VISIT: The reason for this visit is To perform a comprehensive review of the patients past medical history, assess their current health status and obtain any additional testing required based on anesthesia guidelines. To assess and identify potential anesthesia problems, particularly those that may suggest potential complications or contraindications to the planned procedure. The patient has the following: ACTIVE PROBLEM LIST Personal History of Colonic Polyps Gerd Without Esophagitis Tuberculin Test Reaction Arthritis Hip Arthritis Essential Hypertension Diaphragmatic Hernia Hyperuricemia Situational Depression Chronic Anticoagulation Bmi 40.0-44.9, Adult ([facility]cc) Acquired Hypothyroidism Lumbar Degenerative Disc Disease S/P Ablation of Atrial Fibrillation Obstructive Sleep Apnea Syndrome Paroxysmal Atrial Fibrillation (Hcc) Multiple Lung Nodules On CT Osteopenia Encounter for Gynecological Examination Hyperparathyroidism (Hcc) Medicare Annual Wellness Visit, Subsequent Medication Management Low Serum Vitamin B12 Thyroid Nodule Hyperlipidemia, Mixed Gilbert Syndrome Bilateral Renal Cysts Living Will in Place Advance Directive Discussed With Patient History of Covid-19 Balance Problems Multiple Falls Pulmonary Hypertension (Hcc) Skin Cancer Screening Abnormality of Nasal Airway Calcification of Aortic Valve Ringworm Laryngospasms Esophageal Dysphagia Abnormal Upper Gastrointestinal Barium Series Esophageal Spasm Duodenitis Ruq Pain Pre-Op Examination Subjective CHIEF COMPLAINT: Preoperative Examination HPI: Patient present to [facility] for the above procedure. Patient here for routine Upper GI Endoscopy screening. Patient reports difficulty swallowing, choking on pills. Patient denies any N/V/D or constipation. Reports abdominal pain. Denies any melena, hematochezia, or hematemesis. Patient denies any other problems at this time. Denies any family history of Colon cancer or other Gastric ca. Patient agreed to planned procedure. METS: Do moderate work around the house such as vacuuming, sweeping floors, or carrying in groceries (3.50 METs) Patient denies any CP/SOB with above activity. PAST MEDICAL HISTORY Diagnosis Date Abnormality of nasal airway 04/12/2025 Acquired hypothyroidism 07/16/2016 Continue home Levothyroxine dose. Advance directive discussed with patient 04/11/2022 Discussed: 03/2022 Balance problems 02/26/2024 Bilateral renal cysts 11/26/2021 US 10/2021 Calcaneal spur 11/01/2007 COVID-19 virus infection 09/19/2022 09/18/2022 Diaphragmatic hernia without mention of obstruction or gangrene Encounter for gynecological examination 04/03/2021 Seeing UPHOLSTERY MECHANIC Essential hypertension 09/24/2010 On Atenolol and HCTZ GERD without esophagitis Gilbert syndrome 11/13/2021 Hip arthritis 07/23/2009 History of cardiac radiofrequency ablation History of COVID-19 09/19/2022 09/18/2022 Hyperlipidemia, mixed 10/04/2021 Hyperuricemia 06/06/[address] 04/11/2022 DPA: Sherman () Low serum vitamin B12 04/08/2021 Lumbar compression fracture (HCC) 04/15/2017 Lumbar degenerative disc disease 04/15/2017 Lyme disease Medicare annual wellness visit, subsequent 04/03/2021 Last [...] in the ICU and transferred to the [facility]. - discussed with the ENT team, r Osteopenia Paroxysmal atrial fibrillation (HCC) Personal history of colonic polyps Colon polyps Pulmonary hypertension (HCC) 05/06/2024 Seeing Pulm S/P ablation of atrial fibrillation 06/24/2017 Date of procedure 06/23/17. Indication: persistent atrial fibrillation. - restart anticoagulation on Thursday06/29/2017 SEC HYPERPARATHYROID, NON-RENAL 09/02/2005 Situational depression 06/07/2014 Skin cancer of nose 10/21/2023 basal cell Skin cancer screening 05/06/[address] Granda Tuberculin test reaction Unspecified hemorrhoids without mention [...] chest pain EGD TRANSORAL BIOPSY SINGLE/MULTIPLE 05/20/2011 LEFT HEART CATH,PERCUTANEOUS LIG/TRNSXJ FLP TUBE ABDL/VAG APPR UNI/BI MOHS HEAD/NECK STAGE 1 <=5 10/21/2023 Nose PAST SURGICAL HISTORY OF cataracts bilateral PAST SURGICAL HISTORY OF 06/23/2017 heart ablation PAST SURGICAL HISTORY OF 08/17/2018 heart ablation VAGINAL HYSTERECTOMY UTERUS 250 GM/< 1992 Hysterectomy, vaginal [fibroids and bleeding[[ FAMILY HISTORY Problem Relation Age of Onset Diabetes Mother Thyroid Mother other (Other) Mother colon polyps - not CA Heart Father other (Other) Brother colon polyps- not CA Cancer Daughter 4 neuroblastoma Anesthesia Problems No Family History Colon Cancer No Family History SOCIAL HISTORY: SOCIAL HISTORY[1] Prior to Admission medications as of 07/26/25 1015 Medication Sig Last Dose Taking omeprazole (PRILOSEC) 40 mg capsule Take 1 capsule by mouth once daily. 07/25/2025 Yes levothyroxine (SYNTHROID) 25 mcg tablet Take 1 tablet by mouth daily before breakfast. 07/24/2025 Yes hydroCHLOROthiazide 25 mg tablet Take 1 tablet by mouth once daily. 07/26/2025 at 7:30 AM Yes allopurinol (ZYLOPRIM) 300 mg tablet Take 1 tablet by mouth two times a day. 07/26/2025 at 7:30 AM Yes flecainide (TAMBOCOR) 100 mg tablet TAKE 1 TABLET BY MOUTH EVERY 12 HOURS (DOSE INCREASE) 07/26/2025 at 7:30 AM Yes cyanocobalamin (VITAMIN B-12) 1,000 mcg tab Take 1 tablet by mouth once daily. 07/25/2025 Morning Yes Cholecalciferol, Vitamin D3, (VITAMIN D-3) 50 mcg (2,000 unit) cap Take 1 capsule by mouth once daily. 07/25/2025 Morning Yes XARELTO 20 mg tablet TAKE 1 TABLET BY MOUTH EVERY DAY WITH DINNER 07/22/2025 Yes lisinopril (ZESTRIL, PRINIVIL) 5 mg tablet Take 5 mg by mouth once daily. 07/25/2025 at 7:00 AM Yes acetaminophen (TYLENOL) 500 mg tablet Take 1,000 mg by mouth at bedtime as needed. 07/25/2025 Bedtime Yes metoprolol tartrate, short acting, (LOPRESSOR) 12.5 mg tab Take 12.5 mg by mouth every 12 hours. 07/26/2025 at 7:30 AM Yes ketoconazole (NIZORAL) 2 % cream two times a day. Patient not taking: Reported on 07/18/2025 WALKER ROLLATOR SEAT WITH 6 WHEELS - RED R26.89 and R29.6 No medication comments found. ALLERGIES Allergen Reactions Sulfa (Sulfonamide * Hives Penicillins Hives COMPLETE REVIEW OF SYSTEMS: PAIN ASSESSMENT: Pain Pain Level: 0 Acceptable level: 0 Pain Assessment: Assessment Tool: Verbal (Numeric Rating or Visual Analog Scale) General: No weight loss, malaise or fevers. Neuro: No neurological symptoms or problems; no hx of seizure or stroke Respiratory: No history of current cough, wheezing, dyspnea, or recent pneumonia; no hx of asthma, COPD, +ROZ Cardiovascular: +HTN requiring medication, + HLD, + A.fib, + pulm HTN, no history of chest pain, palpitations, CHF, +HX SD 2020, NO cardiac surgery or stents GI: see HPI : No history of dysuria, frequency or incontinence, stones or chronic kidney disease Endocrine: Negative for Diabetes, + thyroid disease Hematology: No history of bleeding or clotting disorder. No history of hematological symptoms or problems. Oncology: No history of oncological symptoms or problems. Psych: No history of psychiatric symptoms or problems. Musculoskeletal: + joint pain, back pain Skin: Negative for lesions, rash and itching. Objective PHYSICAL EXAM: MENTAL STATUS: alert, oriented to person, place and time HEENT: Normocephalic/atraumatic, pharynx clear LUNGS: CTA, no wheezing CARDIAC: RRR, no murmur ABDOMEN: Abdomen soft, non-tender, BS normal, No masses or organomegaly EXTREMITIES: 2+ pedal pulses, no pedal edema 07/26/25 0943 BP: 148/60 Pulse: 62 Resp: 18 Temp: 36.4 C (97.5 F) TempSrc: Temporal Artery SpO2: 98% Weight: 113.4 kg (250 lb) Height: 170.2 cm (5' 7) Body mass index is 39.16 kg/m . Patient has the following medical conditions which may affect pawel-operative course Problem List Items Addressed This Visit Moderate S/P ablation of atrial fibrillation Overview Date of procedure 06/23/17. Indication: persistent atrial fibrillation. - restart anticoagulation on Thursday06/29/2017 Current Assessment & Plan Reports s/p ablation 2017 Managed by Cardiology Unprioritized Abnormal upper gastrointestinal barium series Current Assessment & Plan EGD today Relevant Orders EGD DIAGNOSTIC Acquired hypothyroidism - Primary Overview Continue home Levothyroxine dose. Current Assessment & Plan On levothyroxine - stable Component Ref Range & Units 3 mo ago (04/12/25) 9 mo ago (10/24/24) 1 yr ago (04/26/24) 1 yr ago (10/13/23) 2 yr ago (04/14/23) 2 yr ago (09/29/22) 3 yr ago (03/24/22) TSH 0.270 - 4.200 mIU/L 2.210 3.220 2.500 2.560 2.110 1.600 2.360 BMI 40.0-44.9, adult (HCC) Current Assessment & Plan BMI 39 Duodenitis Current Assessment & Plan EGD TODAY Relevant Orders EGD DIAGNOSTIC Esophageal dysphagia Current Assessment & Plan EGD TODAY Relevant Orders EGD DIAGNOSTIC Esophageal spasm Current Assessment & Plan EGD TODAY Relevant Orders EGD DIAGNOSTIC Essential hypertension Overview On Atenolol and HCTZ Current Assessment & Plan Controlled on HCTZ, lisinopril, metoprolol Last 14 BP Last 14 Encounter BP Readings: Date: BP: 06/22/2025 110/72 06/17/2025 113/75 06/01/2025 114/76 05/15/2025 110/70 04/28/2025 104/64 04/12/2025 94/68 04/06/2025 135/62 01/20/2025 124/70 12/23/2024 119/73 11/15/2024 135/78 11/07/2024 122/80 09/09/2024 158/84 08/29/2024 138/70 08/11/2024 131/74 GERD without esophagitis Current Assessment & Plan EGD today Hyperlipidemia, mixed Overview Declines statin Current Assessment & Plan Patient not currently on any medications. Patient is diet-controlled Obstructive sleep apnea syndrome Overview Sees Dr. Lombardi On CPAP at home. 7 cm pressure Current Assessment & Plan Uses CPAP Paroxysmal atrial fibrillation (HCC) Overview Seeing Dr. muñoz Current Assessment & Plan Managed by cardiology On Xarelto Pre-op examination Current Assessment & Plan Medical conditions which may affect the perioperative course were address in today's visit. Pulmonary hypertension (HCC) Overview Seeing Pulm Current Assessment & Plan Managed by Cardiology and Pulmonology - RSVP 35 mmHg on ECHO from 2018. - Repeat ECHO 11/15 shows Pulmonary Artery Systolic Pressure of 39mmg. EF 60% RUQ pain Current Assessment & Plan EGD today Relevant Orders EGD DIAGNOSTIC Diagnosis: Esophageal dysphagia [R13.19] Abnormal upper gastrointestinal barium series [R93.3] Esophageal spasm [K22.4] Duodenitis [K29.80] RUQ pain [R10.11] Planned Procedure: EGD The Following Tests/Procedures Have Been Initiated: IV start and Maintenance fluid for the procedure. 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 Told to inform anesthesia prior to all procedures by [facility] - Reports possible laryngospasm when she gets emotional. Reports they last about 30-60 seconds and only happens about 3-4x/year. Denies any new or worsening symptoms Anesthesia , Dr. Rock at the bedside. FAMILY PROBLEMS WITH ANESTHESIA: no history of adverse anesthetic event Planned Anesthetic: MAC I spent a total of 20 minutes on the date of the service which included preparing to see the patient, [id number] patient care, completing clinical documentation, and performing a medically appropriate examination. Instructions Given to Patient: Patient given verbal preop instructions and voices comprehension and compliance. SIGNATURE: Ivelisse Matos APRN.CNP PATIENT NAME: Katelynn Torres Rostetter DATE: July 26, 2025 TIME: 9:26 AM PAGER/CONTACT #: [1] Social History Tobacco Use Smoking status: Never Smokeless tobacco: Never Vaping Use Vaping status: Never Used Substance Use Topics Alcohol use: Never Drug use: No [facility] 07-26-2025 History and physical note HISTORY AND PHYSICAL EXAMINATION SERVICE DATE: 07/26/2025 SERVICE TIME: 09:40 AM PRIMARY CARE PHYSICIAN: Cholo Soriano MD REASON FOR VISIT: The reason for this visit is To perform a comprehensive review of the patients past medical history, assess their current health status and obtain any additional testing required based on anesthesia guidelines. To assess and identify potential anesthesia problems, particularly those that may suggest potential complications or contraindications to the planned procedure. The patient has the following: ACTIVE PROBLEM LIST Personal History of Colonic Polyps Gerd Without Esophagitis Tuberculin Test Reaction Arthritis Hip Arthritis Essential Hypertension Diaphragmatic Hernia Hyperuricemia Situational Depression Chronic Anticoagulation Bmi 40.0-44.9, Adult (Hcc) Acquired Hypothyroidism Lumbar Degenerative Disc Disease S/P Ablation of Atrial Fibrillation Obstructive Sleep Apnea Syndrome Paroxysmal Atrial Fibrillation (Hcc) Multiple Lung Nodules On CT Osteopenia Encounter for Gynecological Examination Hyperparathyroidism (Hcc) Medicare Annual Wellness Visit, Subsequent Medication Management Low Serum Vitamin B12 Thyroid Nodule Hyperlipidemia, Mixed Gilbert Syndrome Bilateral Renal Cysts Living Will in Place Advance Directive Discussed With Patient History of Covid-19 Balance Problems Multiple Falls Pulmonary Hypertension (Hcc) Skin Cancer Screening Abnormality of Nasal Airway Calcification of Aortic Valve Ringworm Laryngospasms Esophageal Dysphagia Abnormal Upper Gastrointestinal Barium Series Esophageal Spasm Duodenitis Ruq Pain Pre-Op Examination Subjective CHIEF COMPLAINT: Preoperative Examination HPI: Patient present to [facility] for the above procedure. Patient here for routine Upper GI Endoscopy screening. Patient reports difficulty swallowing, choking on pills. Patient denies any N/V/D or constipation. Reports abdominal pain. Denies any melena, hematochezia, or hematemesis. Patient denies any other problems at this time. Denies any family history of Colon cancer or other Gastric ca. Patient agreed to planned procedure. METS: Do moderate work around the house such as vacuuming, sweeping floors, or carrying in groceries (3.50 METs) Patient denies any CP/SOB with above activity. PAST MEDICAL HISTORY Diagnosis Date Abnormality of nasal airway 04/12/2025 Acquired hypothyroidism 07/16/2016 Continue home Levothyroxine dose. Advance directive discussed with patient 04/11/2022 Discussed: 03/2022 Balance problems 02/26/2024 Bilateral renal cysts 11/26/2021 10/2021 Calcaneal spur 11/01/2007 COVID-19 virus infection 09/19/2022 09/18/2022 Diaphragmatic hernia without mention of obstruction or gangrene Encounter for gynecological examination 04/03/2021 Seeing UPHOLSTERY MECHANIC Essential hypertension 09/24/2010 On Atenolol and HCTZ GERD without esophagitis Gilbert syndrome 11/13/2021 Hip arthritis 07/23/2009 History of cardiac radiofrequency ablation History of COVID-19 09/19/2022 09/18/2022 Hyperlipidemia, mixed 10/04/2021 Hyperuricemia 06/06/[address] 04/11/2022 DPA: Sherman () Low serum vitamin B12 04/08/2021 Lumbar compression fracture (HCC) 04/15/2017 Lumbar degenerative disc disease 04/15/2017 Lyme disease Medicare annual wellness visit, subsequent 04/03/2021 Last [...] in the ICU and transferred to the [facility]. - discussed with the ENT team, r Osteopenia Paroxysmal atrial fibrillation (HCC) Personal history of colonic polyps Colon polyps Pulmonary hypertension (HCC) 05/06/2024 Seeing Pulm S/P ablation of atrial fibrillation 06/24/2017 Date of procedure 06/23/17. Indication: persistent atrial fibrillation. - restart anticoagulation on Thursday06/29/2017 SEC HYPERPARATHYROID, NON-RENAL 09/02/2005 Situational depression 06/07/2014 Skin cancer of nose 10/21/2023 basal cell Skin cancer screening 05/06/[address] Granda Tuberculin test reaction Unspecified hemorrhoids without mention [...] chest pain EGD TRANSORAL BIOPSY SINGLE/MULTIPLE 05/20/2011 LEFT HEART CATH,PERCUTANEOUS LIG/TRNSXJ FLP TUBE ABDL/VAG APPR UNI/BI MOHS HEAD/NECK STAGE 1 <=5 10/21/2023 Nose PAST SURGICAL HISTORY OF cataracts bilateral PAST SURGICAL HISTORY OF 06/23/2017 heart ablation PAST SURGICAL HISTORY OF 08/17/2018 heart ablation VAGINAL HYSTERECTOMY UTERUS 250 GM/< 1992 Hysterectomy, vaginal [fibroids and bleeding[[ FAMILY HISTORY Problem Relation Age of Onset Diabetes Mother Thyroid Mother other (Other) Mother colon polyps - not CA Heart Father other (Other) Brother colon polyps- not CA Cancer Daughter 4 neuroblastoma Anesthesia Problems No Family History Colon Cancer No Family History SOCIAL HISTORY: SOCIAL HISTORY[1] Prior to Admission medications as of 07/26/25 1015 Medication Sig Last Dose Taking omeprazole (PRILOSEC) 40 mg capsule Take 1 capsule by mouth once daily. 07/25/2025 Yes levothyroxine (SYNTHROID) 25 mcg tablet Take 1 tablet by mouth daily before breakfast. 07/24/2025 Yes hydroCHLOROthiazide 25 mg tablet Take 1 tablet by mouth once daily. 07/26/2025 at 7:30 AM Yes allopurinol (ZYLOPRIM) 300 mg tablet Take 1 tablet by mouth two times a day. 07/26/2025 at 7:30 AM Yes flecainide (TAMBOCOR) 100 mg tablet TAKE 1 TABLET BY MOUTH EVERY 12 HOURS (DOSE INCREASE) 07/26/2025 at 7:30 AM Yes cyanocobalamin (VITAMIN B-12) 1,000 mcg tab Take 1 tablet by mouth once daily. 07/25/2025 Morning Yes Cholecalciferol, Vitamin D3, (VITAMIN D-3) 50 mcg (2,000 unit) cap Take 1 capsule by mouth once daily. 07/25/2025 Morning Yes XARELTO 20 mg tablet TAKE 1 TABLET BY MOUTH EVERY DAY WITH DINNER 07/22/2025 Yes lisinopril (ZESTRIL, PRINIVIL) 5 mg tablet Take 5 mg by mouth once daily. 07/25/2025 at 7:00 AM Yes acetaminophen (TYLENOL) 500 mg tablet Take 1,000 mg by mouth at bedtime as needed. 07/25/2025 Bedtime Yes metoprolol tartrate, short acting, (LOPRESSOR) 12.5 mg tab Take 12.5 mg by mouth every 12 hours. 07/26/2025 at 7:30 AM Yes ketoconazole (NIZORAL) 2 % cream two times a day. Patient not taking: Reported on 07/18/2025 WALKER ROLLATOR SEAT WITH 6 WHEELS - RED R26.89 and R29.6 No medication comments found. ALLERGIES Allergen Reactions Sulfa (Sulfonamide * Hives Penicillins Hives COMPLETE REVIEW OF SYSTEMS: PAIN ASSESSMENT: Pain Pain Level: 0 Acceptable level: 0 Pain Assessment: Assessment Tool: Verbal (Numeric Rating or Visual Analog Scale) General: No weight loss, malaise or fevers. Neuro: No neurological symptoms or problems; no hx of seizure or stroke Respiratory: No history of current cough, wheezing, dyspnea, or recent pneumonia; no hx of asthma, COPD, +ROZ Cardiovascular: +HTN requiring medication, + HLD, + A.fib, + pulm HTN, no history of chest pain, palpitations, CHF, +HX SD 2020, NO cardiac surgery or stents GI: see HPI : No history of dysuria, frequency or incontinence, stones or chronic kidney disease Endocrine: Negative for Diabetes, + thyroid disease Hematology: No history of bleeding or clotting disorder. No history of hematological symptoms or problems. Oncology: No history of oncological symptoms or problems. Psych: No history of psychiatric symptoms or problems. Musculoskeletal: + joint pain, back pain Skin: Negative for lesions, rash and itching. Objective PHYSICAL EXAM: MENTAL STATUS: alert, oriented to person, place and time HEENT: Normocephalic/atraumatic, pharynx clear LUNGS: CTA, no wheezing CARDIAC: RRR, no murmur ABDOMEN: Abdomen soft, non-tender, BS normal, No masses or organomegaly EXTREMITIES: 2+ pedal pulses, no pedal edema 07/26/25 0943 BP: 148/60 Pulse: 62 Resp: 18 Temp: 36.4 C (97.5 F) TempSrc: Temporal Artery SpO2: 98% Weight: 113.4 kg (250 lb) Height: 170.2 cm (5' 7) Body mass index is 39.16 kg/m . Patient has the following medical conditions which may affect pawel-operative course Problem List Items Addressed This Visit Moderate S/P ablation of atrial fibrillation Overview Date of procedure 06/23/17. Indication: persistent atrial fibrillation. - restart anticoagulation on Thursday06/29/2017 Current Assessment & Plan Reports s/p ablation 2017 Managed by Cardiology Unprioritized Abnormal upper gastrointestinal barium series Current Assessment & Plan EGD today Relevant Orders EGD DIAGNOSTIC Acquired hypothyroidism - Primary Overview Continue home Levothyroxine dose. Current Assessment & Plan On levothyroxine - stable Component Ref Range & Units 3 mo ago (04/12/25) 9 mo ago (10/24/24) 1 yr ago (04/26/24) 1 yr ago (10/13/23) 2 yr ago (04/14/23) 2 yr ago (09/29/22) 3 yr ago (03/24/22) TSH 0.270 - 4.200 mIU/L 2.210 3.220 2.500 2.560 2.110 1.600 2.360 BMI 40.0-44.9, adult (HCC) Current Assessment & Plan BMI 39 Duodenitis Current Assessment & Plan EGD TODAY Relevant Orders EGD DIAGNOSTIC Esophageal dysphagia Current Assessment & Plan EGD TODAY Relevant Orders EGD DIAGNOSTIC Esophageal spasm Current Assessment & Plan EGD TODAY Relevant Orders EGD DIAGNOSTIC Essential hypertension Overview On Atenolol and HCTZ Current Assessment & Plan Controlled on HCTZ, lisinopril, metoprolol Last 14 BP Last 14 Encounter BP Readings: Date: BP: 06/22/2025 110/72 06/17/2025 113/75 06/01/2025 114/76 05/15/2025 110/70 04/28/2025 104/64 04/12/2025 94/68 04/06/2025 135/62 01/20/2025 124/70 12/23/2024 119/73 11/15/2024 135/78 11/07/2024 122/80 09/09/2024 158/84 08/29/2024 138/70 08/11/2024 131/74 GERD without esophagitis Current Assessment & Plan EGD today Hyperlipidemia, mixed Overview Declines statin Current Assessment & Plan Patient not currently on any medications. Patient is diet-controlled Obstructive sleep apnea syndrome Overview Sees Dr. Lombardi On CPAP at home. 7 cm pressure Current Assessment & Plan Uses CPAP Paroxysmal atrial fibrillation (HCC) Overview Seeing Dr. muñoz Current Assessment & Plan Managed by cardiology On Xarelto Pre-op examination Current Assessment & Plan Medical conditions which may affect the perioperative course were address in today's visit. Pulmonary hypertension (HCC) Overview Seeing Pulm Current Assessment & Plan Managed by Cardiology and Pulmonology - RSVP 35 mmHg on ECHO from 2018. - Repeat ECHO 11/15 shows Pulmonary Artery Systolic Pressure of 39mmg. EF 60% RUQ pain Current Assessment & Plan EGD today Relevant Orders EGD DIAGNOSTIC Diagnosis: Esophageal dysphagia [R13.19] Abnormal upper gastrointestinal barium series [R93.3] Esophageal spasm [K22.4] Duodenitis [K29.80] RUQ pain [R10.11] Planned Procedure: EGD The Following Tests/Procedures Have Been Initiated: IV start and Maintenance fluid for the procedure. 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 Told to inform anesthesia prior to all procedures by [facility] - Reports possible laryngospasm when she gets emotional. Reports they last about 30-60 seconds and only happens about 3-4x/year. Denies any new or worsening symptoms Anesthesia , Dr. Rock at the bedside. FAMILY PROBLEMS WITH ANESTHESIA: no history of adverse anesthetic event Planned Anesthetic: MAC I spent a total of 20 minutes on the date of the service which included preparing to see the patient, [id number] patient care, completing clinical documentation, and performing a medically appropriate examination. Instructions Given to Patient: Patient given verbal preop instructions and voices comprehension and compliance. SIGNATURE: Ivelisse Matos APRN.CNP PATIENT NAME: Katelynn Torres Rostetter DATE: July 26, 2025 TIME: 9:26 AM PAGER/CONTACT #: [[phone]] Social History Tobacco Use Smoking status: Never Smokeless tobacco: Never Vaping Use Vaping status: Never Used Substance Use Topics Alcohol use: Never Drug use: No documented in this encounter [facility] 07-26-2025 Surgery Surgical operation note OPERATIVE/PROCEDURE REPORT LOG ID: [id number] Surgery/Procedure Date: 07/26/2025 Incision/Procedure Start Time: 11:16 AM Incision Close/Procedure End Time: Surgeon(s)/Proceduralist(s) and [employer] Farm Manager(s): Hedy Pham MD Procedure(s): Esophagogastroduodenoscopy (EGD) with biopsy Anesthesia: Monitored Anesthesia Care Brief History: 75 yo F with sense of pills sticking in throat, history of pharyngeal hematoma, abnormal duodenum on Upper GI Xray Procedure Details: The patient was placed in the left lateral decubitus position. A bite block was placed and medications administered as above. The Olympus gastroscope was used to intubate the oropharynx and esophagus with ease. We proceeded down to the third part of the duodenum. There was a small lymphangiectasia in the second portion of the duodenum. The remainder of the third and second portion of the duodenum were unremarkable. Biopsies were taken from the second portion of the duodenum with cold forceps (jar 1). The duodenal bulb had prominent Migel's glands and these were biopsied with cold forceps (jar 2). There was no narrowing or stricture of the duodenum. No inflammation was noted. We then withdrew into the stomach and visualized a normal antrum and body. There were several small gastric body polyps noted, 2 mm in size. Biopsies were taken of the gastric body polyps with cold forceps (jar 3). Retroflexion was performed and this showed a normal fundus and cardia. The squamocolumnar junction and GE junction were normal at 43 cm. There was mild esophagitis noted in the distal esophagus from 42 cm to 43 cm, LA grade A. The esophagus was slightly tortuous but otherwise unremarkable. The pharyngeal area appeared normal within limitations of our scope and vocal cords appeared normal. The scope was then withdrawn and the patient tolerated the procedure well. Pre-Op/Pre-Procedure Diagnosis: 1) Sense of pills getting stuck in the throat 2) History of pharyngeal hematoma after intubation in the past Post-Op/Post-Procedure Diagnosis: 1) mildly tortuous esophagus 2) LA grade A esophagitis 3) gastric body polyps, biopsied 4) Prominent Migel's glands in duodenal bulb, biopsied 5) Lymphangiectasia in the second portion of the duodenum 6) otherwise normal duodenum, biopsies of the second portion of the duodenum Specimens: See above EBL: Minimal Complications: None Recommendations: Follow up pathology Resume xarelto 07/27/2025 I/primary surgeon/proceduralist performed the entire procedure. Hedy Pham MD SIGNATURE:Hedy Pham MD PATIENT NAME: Katelynn Torres Rostetter DATE: July 26, 2025 TIME: 11:23 AM PAGER/CONTACT #: [phone] [facility] 09-03-2025 Surgical operation note OPERATIVE/PROCEDURE REPORT LOG ID: [id number] Surgery/Procedure Date: 07/26/2025 Incision/Procedure Start Time: 11:16 AM Incision Close/Procedure End Time: Surgeon(s)/Proceduralist(s) and [employer] Farm Manager(s): Hedy Pham MD Procedure(s): Esophagogastroduodenoscopy (EGD) with biopsy Anesthesia: Monitored Anesthesia Care Brief History: 75 yo F with sense of pills sticking in throat, history of pharyngeal hematoma, abnormal duodenum on Upper GI Xray Procedure Details: The patient was placed in the left lateral decubitus position. A bite block was placed and medications administered as above. The Olympus gastroscope was used to intubate the oropharynx and esophagus with ease. We proceeded down to the third part of the duodenum. There was a small lymphangiectasia in the second portion of the duodenum. The remainder of the third and second portion of the duodenum were unremarkable. Biopsies were taken from the second portion of the duodenum with cold forceps (jar 1). The duodenal bulb had prominent Migel's glands and these were biopsied with cold forceps (jar 2). There was no narrowing or stricture of the duodenum. No inflammation was noted. We then withdrew into the stomach and visualized a normal antrum and body. There were several small gastric body polyps noted, 2 mm in size. Biopsies were taken of the gastric body polyps with cold forceps (jar 3). Retroflexion was performed and this showed a normal fundus and cardia. The squamocolumnar junction and GE junction were normal at 43 cm. There was mild esophagitis noted in the distal esophagus from 42 cm to 43 cm, LA grade A. The esophagus was slightly tortuous but otherwise unremarkable. The pharyngeal area appeared normal within limitations of our scope and vocal cords appeared normal. The scope was then withdrawn and the patient tolerated the procedure well. Pre-Op/Pre-Procedure Diagnosis: 1) Sense of pills getting stuck in the throat 2) History of pharyngeal hematoma after intubation in the past Post-Op/Post-Procedure Diagnosis: 1) mildly tortuous esophagus 2) LA grade A esophagitis 3) gastric body polyps, biopsied 4) Prominent Migel's glands in duodenal bulb, biopsied 5) Lymphangiectasia in the second portion of the duodenum 6) otherwise normal duodenum, biopsies of the second portion of the duodenum Specimens: See above EBL: Minimal Complications: None Recommendations: Follow up pathology Resume xarelto 07/27/2025 I/primary surgeon/proceduralist performed the entire procedure. Hedy Pham MD SIGNATURE:Hedy Pham MD PATIENT NAME: Katelynn Campuzano DATE: July 26, 2025 TIME: 11:23 AM PAGER/CONTACT #: [phone] documented in this encounter [facility] 07-26-2025 Nurse Note Patient has concerns regarding things in her throat. She reports that during one of her cardiac ablations, she sustained a hematoma from the intubation. She has not had any surgery since that time. She did follow up with ENT at the time and has not had issue. Instructed patient to talk with Dr. Gamez and anesthesia regarding this, she has paperwork regarding this issue. [facility] 06-22-2025 Telephone encounter Note Patient called and informed that CT was negative for any fractures or internal derangement. Patient to cont her conservative Tx. [facility] 06-22-2025 Miscellaneous Notes Patient called and informed that CT was negative for any fractures or internal derangement. Patient to cont her conservative Tx. documented in this encounter [facility] 06-22-2025 History of Present illness Narrative Radiology Service Progress Note PATIENT NAME: Katelynn Campuzano DATE OF SERVICE: June 22, 2025 TIME: 3:55 PM PATIENT IDENTITY VERIFICATION COMPLETED USING TWO (2) IDENTIFIERS: Name and Date of confirmed by patient verbally. FALL SCREENING: Has the patient had 2 falls in the last year or 1 fall with injury or currently using an Ambulatory Assistive Device (Walker, Cane, Wheelchair, Crutches, etc.)? No PATIENT GENDER DATA: Assigned female at . status: : No status: NO. PATIENT RELEVANT IMPLANT DATA REVIEWED: Yes PATIENT PRESENTS WITH AN IMPLANTABLE OR ATTACHED COMMERCIAL MAKEUP ARTIST: No RADIOLOGY DEPARTMENT: CT; Exam(s) Completed: Lower extremity PERIPHERAL IV DATA: Not applicable SIGNED BY: KATHY Magallanes) June 22, 2025 3:55 PM documented in this encounter [facility] 06-22-2025 Note HNO ID: [id number] Author: SHIRLEY SHAY RT (R) Service: ? Author Type: Battery Test Engineer Type: Progress Notes Filed: 06/22/2025 15:55 Note Text: Radiology Service Progress Note PATIENT NAME: Katelynn Campuzano DATE OF SERVICE: June 22, 2025 TIME: 3:55 PM PATIENT IDENTITY VERIFICATION COMPLETED USING TWO (2) IDENTIFIERS: Name and Date of confirmed by patient verbally. FALL SCREENING: Has the patient had 2 falls in the last year or 1 fall with injury or currently using an Ambulatory Assistive Device (Walker, Cane, Wheelchair, Crutches, etc.)? No PATIENT GENDER DATA: Assigned female at . status: : No status: NO. PATIENT RELEVANT IMPLANT DATA REVIEWED: Yes PATIENT PRESENTS WITH AN IMPLANTABLE OR ATTACHED COMMERCIAL MAKEUP ARTIST: No RADIOLOGY DEPARTMENT: CT; Exam(s) Completed: Lower extremity PERIPHERAL IV DATA: Not applicable SIGNED BY: KATHY Magallanes) June 22, 2025 3:55 PM [facility] 06-22-2025 Instructions Cholo Soriano MD - 06/22/2025 10:43 AM EDT We discussed your recent fall and associated injuries: - You reported falling on the and experiencing rib pain and knee swelling since then. The rib pain worsened after coughing, and the knee swelling developed last night. - For your rib pain: - Continue taking Tylenol as it helps manage the pain. - Use a pillow to compress your ribs when coughing or sneezing to reduce discomfort. - Take 5-10 deep breaths every 1.5-2 hours to keep your lungs clear and reduce the risk of pneumonia. - Avoid wrapping your ribs at night, as this can increase the risk of pneumonia. - Continue sleeping in a recliner if it helps you stay upright and comfortable. - For your knee: - A stat CT scan of your knee has been ordered to check for a possible patella fracture. The imaging center will assist you in scheduling this today. - Continue icing your knee and taking Tylenol for pain relief. - If the CT scan shows a fracture, I will coordinate with your web communications specialist to arrange a follow-up appointment. We discussed your chest and arm pain: - The pain in your chest and arm is likely related to the fall. There is no visible bruising in the rib area, and your lungs sounded clear during the exam. - Continue monitoring your symptoms. If you experience worsening pain, difficulty breathing, or other concerning symptoms, please let me know. Next steps: - Complete the stat CT scan of your knee as soon as possible. - I will review the CT results and contact you with the findings and next steps. - If a fracture is confirmed, I will work with your web communications specialist to arrange further care. Please continue to monitor your symptoms and let me know if you have any new or worsening issues. documented in this encounter [facility] 06-22-2025 Note HNO ID: [id number] Author: CHOLO SORIANO MD Service: ? Author Type: Physician Type: Progress Notes Filed: 06/22/2025 21:06 Note Text: Chief Complaint Patient presents with: Left Knee Pain HPI Katelynn Campuzano is a 75 year old female who presents here today for an acute visit. Patient here today with complaints of left knee pain after falling last week to 10 days ago and now having a lump on her knee that popped up last night. Pt is s/p b/l knee replacements. Uses a walker. Was seen in on 06/17/25 with XR's completed. Last night she slept in a recliner, used ice over night and the swelling has reduced. Does have bruising. Still having chest pain, right sided rib and shoulder pain from the fall as well. States when she fell she hit a corner, hitting her right upper arm (bruising noted near axillary area) on a small drawer/chest. Katelynn Campuzano is a 75-year-old female presenting with right axillary pain and swelling of the right knee following a fall on the . Katelynn reports a fall on the , during which she slipped on a step, landed on a landing, and then fell down two more steps into the kitchen. She initially experienced right axillary pain and right knee pain, which she managed with Tylenol. [facility] the due to severe rib pain and was found to have bruising. X-rays were taken at that time. Last night, she noticed significant swelling in her right knee, describing it as sticking straight up like a golf ball. This swelling was not present during her [facility] visit [facility] the . She considered going to the ER but decided to wait until morning. She applied ice and elevated her leg overnight, which reduced the swelling, but the knee still does not feel right. She denies any popping or grinding in the knee when walking. Katelynn also reports right axillary pain since the fall, which she attributes to hitting a chest of drawers during the incident. The pain is exacerbated by breathing and coughing. She has been taking Tussin to manage the cough. She denies feeling any rib movement or shifting when breathing and is unable to see any bruising over the ribs. She denies hemoptysis, fevers, or chills. Past medical history, appointments, medications, allergies reviewed. Previous Medical History PAST MEDICAL HISTORY Diagnosis Date Abnormality of nasal airway 04/12/2025 Acquired hypothyroidism 07/16/2016 Continue home Levothyroxine dose. Advance directive discussed with patient 04/11/2022 Discussed: 03/2022 Balance problems 02/26/2024 Bilateral renal cysts 11/26/2021 US 10/2021 Calcaneal spur 11/01/2007 COVID-19 virus infection 09/19/2022 09/18/2022 Diaphragmatic hernia without mention of obstruction or gangrene Encounter for gynecological examination 04/03/2021 Seeing UPHOLSTERY MECHANIC Essential hypertension 09/24/2010 On Atenolol and HCTZ GERD without esophagitis Gilbert syndrome 11/13/2021 Hip arthritis 07/23/2009 History of cardiac radiofrequency ablation History of COVID-19 09/19/2022 09/18/2022 Hyperlipidemia, mixed 10/04/2021 Hyperuricemia 06/06/[address] 04/11/2022 DPA: Sherman () Low serum vitamin B12 04/08/2021 Lumbar compression fracture (HCC) 04/15/2017 Lumbar degenerative disc disease 04/15/2017 Lyme disease Medicare annual wellness visit, subsequent 04/03/2021 Last [...] in the ICU and transferred to the [facility]. - discussed with the ENT team, r Osteopenia Paroxysmal atrial fibrillation (HCC) Personal history of colonic polyps Colon polyps Pulmonary hypertension (HCC) 05/06/2024 Seeing Pulm S/P ablation of atrial fibrillation 06/24/2017 Date of procedure 06/23/17. Indication: persistent atrial fibrillation. - restart anticoagulation on Thursday06/29/2017 SEC HYPERPARATHYROID, NON-RENAL 09/02/2005 Situational depression 06/07/2014 Skin cancer of nose 10/21/2023 basal cell Skin cancer screening 05/06/[address] Granda Tuberculin test reaction Unspecified hemorrhoids without mention of complication Hemorrhoids Vitamin D deficiency 08/17/2013 Previous Surgical History PAST SURGICAL HISTORY Procedure Laterality Date ARTHROSCOPY KNEE DIAGNOSTIC W/WO SYNOVIAL BX SPX Arthroscopy, knee right ARTHRP ACETBLR/PROX FEM PROSTC AGRFT/ALGRFT 04/08/2010 right hip ARTHRP KNE CONDYLEANDPLATU MEDIALANDLAT COMPARTMENTS 04/14/2007 Knee replaceme (more content not included)... [facility] 06-22-2025 History of Present illness Narrative Chief Complaint Patient presents with: Left Knee Pain HPI Katelynn Campuzano is a 75 year old female who presents here today for an acute visit. Patient here today with complaints of left knee pain after falling last week to 10 days ago and now having a lump on her knee that popped up last night. Pt is s/p b/l knee replacements. Uses a walker. Was seen in on 06/17/25 with XR's completed. Last night she slept in a recliner, used ice over night and the swelling has reduced. Does have bruising. Still having chest pain, right sided rib and shoulder pain from the fall as well. States when she fell she hit a corner, hitting her right upper arm (bruising noted near axillary area) on a small drawer/chest. Katelynn Campuzano is a 75-year-old female presenting with right axillary pain and swelling of the right knee following a fall on the . Katelynn reports a fall on the , during which she slipped on a step, landed on a landing, and then fell down two more steps into the kitchen. She initially experienced right axillary pain and right knee pain, which she managed with Tylenol. [facility] the due to severe rib pain and was found to have bruising. X-rays were taken at that time. Last night, she noticed significant swelling in her right knee, describing it as sticking straight up like a golf ball. This swelling was not present during her [facility] visit on the . She considered going to the ER but decided to wait until morning. She applied ice and elevated her leg overnight, which reduced the swelling, but the knee still does not feel right. She denies any popping or grinding in the knee when walking. Katelynn also reports right axillary pain since the fall, which she attributes to hitting a chest of drawers during the incident. The pain is exacerbated by breathing and coughing. She has been taking Tussin to manage the cough. She denies feeling any rib movement or shifting when breathing and is unable to see any bruising over the ribs. She denies hemoptysis, fevers, or chills. Past medical history, appointments, medications, allergies reviewed. Previous Medical History PAST MEDICAL HISTORY Diagnosis Date Abnormality of nasal airway 04/12/2025 Acquired hypothyroidism 07/16/2016 Continue home Levothyroxine dose. Advance directive discussed with patient 04/11/2022 Discussed: 03/2022 Balance problems 02/26/2024 Bilateral renal cysts 11/26/2021 US 10/2021 Calcaneal spur 11/01/2007 COVID-19 virus infection 09/19/2022 09/18/2022 Diaphragmatic hernia without mention of obstruction or gangrene Encounter for gynecological examination 04/03/2021 Seeing UPHOLSTERY MECHANIC Essential hypertension 09/24/2010 On Atenolol and HCTZ GERD without esophagitis Gilbert syndrome 11/13/2021 Hip arthritis 07/23/2009 History of cardiac radiofrequency ablation History of COVID-19 09/19/2022 09/18/2022 Hyperlipidemia, mixed 10/04/2021 Hyperuricemia 06/06/[address] 04/11/2022 DPA: Sherman () Low serum vitamin B12 04/08/2021 Lumbar compression fracture (HCC) 04/15/2017 Lumbar degenerative disc disease 04/15/2017 Lyme disease Medicare annual wellness visit, subsequent 04/03/2021 Last [...] in the ICU and transferred to the [facility]. - discussed with the ENT team, r Osteopenia Paroxysmal atrial fibrillation (HCC) Personal history of colonic polyps Colon polyps Pulmonary hypertension (HCC) 05/06/2024 Seeing Pulm S/P ablation of atrial fibrillation 06/24/2017 Date of procedure 06/23/17. Indication: persistent atrial fibrillation. - restart anticoagulation on Thursday06/29/2017 SEC HYPERPARATHYROID, NON-RENAL 09/02/2005 Situational depression 06/07/2014 Skin cancer of nose 10/21/2023 basal cell Skin cancer screening 05/06/[address] Granda Tuberculin test reaction Unspecified hemorrhoids without mention [...] chest pain EGD TRANSORAL BIOPSY SINGLE/MULTIPLE 05/20/2011 LEFT HEART CATH,PERCUTANEOUS LIG/TRNSXJ FLP TUBE ABDL/VAG APPR UNI/BI MOHS HEAD/NECK STAGE 1 <=5 10/21/2023 Nose PAST SURGICAL HISTORY OF cataracts bilateral PAST [...] polyps- not CA Cancer Daughter 4 neuroblastoma Anesthesia Problems No Family History Colon Cancer No Family History Patient Allergies ALLERGIES Allergen Reactions Sulfa (Sulfonamide * Hives Penicillins Hives Current Medications Current Outpatient Medications on File Prior to Visit Medication Sig omeprazole (PRILOSEC) 40 mg capsule Take 1 capsule by mouth once daily. levothyroxine (SYNTHROID) 25 mcg tablet Take 1 tablet by mouth daily before breakfast. hydroCHLOROthiazide 25 mg tablet Take 1 tablet by mouth once daily. ketoconazole (NIZORAL) 2 % cream two times a day. allopurinol (ZYLOPRIM) 300 mg tablet Take 1 tablet by mouth two times a day. WALKER ROLLATOR SEAT WITH 6 WHEELS - RED R26.89 and R29.6 flecainide (TAMBOCOR) 100 mg tablet TAKE 1 TABLET BY MOUTH EVERY 12 HOURS (DOSE INCREASE) cyanocobalamin (VITAMIN B-12) 1,000 mcg tab Take [...] Never Smokeless tobacco: Never Vaping Use Vaping status: Never Used Substance Use Topics Alcohol use: Never Drug use: No Review of Symptoms REVIEW OF SYSTEMS SEE HPI EXAM: BP 110/72 (BP Site: Left Arm, BP Position: Sitting, BP Cuff Size: Large Adult) Pulse (!) 56 Resp 16 Wt 116.8 kg (257 lb 6.4 oz) BMI 40.31 kg/m General Appearance: Well appearing, alert, in no acute distress, well-hydrated, well nourished.. Lungs: Lungs clear to auscultation. No wheezing, rhonchi, rales.. Musculoskeletal: some pain to palpation of the right lateral/posterior ribs. Left knee: there is some bruising on the medial side of the knee cap. There is some swelling over the distal part of the knee cap and looks like a hematoma. There is significant tenderness over the medial side of the knee cap. It is not ballotable. No pain under the knee cap with contraction of the quads. No joint line tenderness or effusion. ACL, PCL, MCL and LCL all tight wit good end points. Eugene testing was neg. Health Maintenance List Advance Directive Discussion due on 11/23/2024 Influenza Vaccine(1) due on 07/24/2025 Anxiety Screening due on 05/15/2026 Medicare Annual Wellness Visit due on 05/15/2026 Annual PCP Team Chronic Disease Visit due on 06/22/2026 Diabetes Screening due on 04/12/2028 DTaP,Tdap,Td Vaccine(6 - Td or Tdap) due on 09/02/2032 Bone Density Screening Completed RSV Vaccine Completed Hepatitis C Screening Completed Shingrix Vaccine Completed Pneumococcal Vaccine: 50+ Completed Mammogram Screening Discontinued Colorectal Cancer Screening Discontinued Data reviewed Results XR KNEE GENERAL 4V AP BOTH/PA BOTH/LAT/MERC LEFT (Acc#[id number]) (Order [id number]) Patient Info Patient Name Sex Katelynn Blandon ([id number]) Female 1950 06/17/2025 12:04 PM - Radiology, [place] Impression IMPRESSION: Likely degenerative changes, less likely nondisplaced horizontal fracture of the left patella. Bilateral total knee arthroplasty with maintained alignment. Crystal Slicer: SEBAS Transcribe Date/Time: Jun 17 2025 11:53A Dictated by : JAYCOB GARZA MD This examination was interpreted and the report reviewed and electronically signed by: JAYCOB GARZA MD on Jun 17 2025 12:02PM EST Assessment and Plan 1. Fall, initial encounter (W19.XXXA) Acute pain of left knee (M25.562) Patient experienced a fall on the , resulting in acute left knee pain and right axillary rib pain. Initial X-rays were negative, but significant tenderness and swelling in the left knee suggest a possible patellar fracture or bone contusion. Right axillary rib pain is likely due to trauma from the fall, with no evidence of rib movement or significant bruising observed on examination. - Ordered a stat CT scan of the left knee to evaluate for potential patellar fracture. - Continue icing the knee and taking Tylenol for pain management. - Educated patient on the importance of taking deep breaths every 1.5 to 2 hours to prevent pneumonia. - Will review CT results and coordinate with web communications specialist if a fracture is identified. Cholo Soriano MD Recording using [employer] software for draft documentation of the visit was discussed with the patient/authorized sales representative business courses; all questions welcomed and answered. Patient/authorized sales representative business courses agreed to proceed documented in this encounter [facility] 06-17-2025 Note HNO ID: [id number] Author: NANCY SWENSON APRN.MIGUEL Service: ? Author Type: Nurse Practitioner Type: Progress Notes Filed: 06/17/2025 12:17 Note Text: [facility] Kelli Campuzano is a 75 year old female. Patient presents with: Fall: X 6 days ago, fell on steps, hit R side on something, under armpit/beside breasts, some bruising, Left knee swelling and bruising, some pain with movement and with deep breathing sharp pain, Bruising on R forearm, R hand pinky pain HPI Right-Sided Rib Pain: - Fell 6 days ago, landing on the right side against a chest with a corner. - Pain localized to the middle of the right ribs, initially thought to be soft tissue. - No significant bruising observed; pain not elicited on palpation. - Pain present at rest and exacerbated by deep breathing and coughing. - Coughing began last night; denies dyspnea. - Pain alleviated by pressing against a chair. Left Knee Pain: - Fell on the left knee, which has a prosthetic joint. - Bruising and swelling noted; pain improved by 90% since . - Initially unable to bend the knee; now able to do so without significant pain. - Denies numbness, tingling, or loss of sensation in the feet. Atrial Fibrillation: - Taking Xarelto and flecainide. Review of Systems Respiratory: (+) cough, (-) shortness of breath Musculoskeletal: (+) right rib pain, (+) left knee swelling, (-) right arm pain Skin: (+) right arm bruising, (+) left knee bruising Neurological: (-) numbness of feet, (-) tingling of feet Objective BP 113/75 Pulse (!) 59 Temp 36.6 ?C (97.9 ?F) Resp 20 Wt 116 kg (255 lb 11.7 oz) SpO2 98% BMI 40.05 kg/m? Physical Exam General: No acute distress. Resp: Good air exchange. MSK/Ext: Bruising on right arm, non-tender to palpation, full range of motion; mild bruising on right ribs, non-tender to palpation; bruising and mild swelling on left knee, non-tender to palpation. { 1. Pain (R52) 2. Contusion of rib on right side, initial encounter (S20.211A) 3. Contusion of left knee, initial encounter (S80.02XA) - Rib and knee pain following a fall 6 days ago; rib pain localized to right side, mid-axillary region, worsened with deep inspiration and coughing; left knee pain improved by 90% since . - Physical exam: bruising on right arm and left knee; no significant tenderness on palpation of ribs or knee; full range of motion in right arm; no loss of sensation in feet. - X-rays of ribs and left knee showed only degenerative changes and old fractures; no new acute findings. - Advised rest and use of Tylenol or Motrin for pain management; patient agreeable to care plan. - Instructed to follow up if needed in the future. and Recording using [employer] software for draft documentation of the visit was discussed with the patient/authorized sales representative business courses; all questions welcomed and answered. Patient/authorized sales representative business courses agreed to proceed MDM Procedures [facility] 06-17-2025 History of Present illness Narrative [facility] Subjective Katelynn Campuzano is a 75 year old female. Patient presents with: Fall: X 6 days ago, fell on steps, hit R side on something, under armpit/beside breasts, some bruising, Left knee swelling and bruising, some pain with movement and with deep breathing sharp pain, Bruising on R forearm, R hand pinky pain HPI Right-Sided Rib Pain: - Fell 6 days ago, landing on the right side against a chest with a corner. - Pain localized to the middle of the right ribs, initially thought to be soft tissue. - No significant bruising observed; pain not elicited on palpation. - Pain present at rest and exacerbated by deep breathing and coughing. - Coughing began last night; denies dyspnea. - Pain alleviated by pressing against a chair. Left Knee Pain: - Fell on the left knee, which has a prosthetic joint. - Bruising and swelling noted; pain improved by 90% since . - Initially unable to bend the knee; now able to do so without significant pain. - Denies numbness, tingling, or loss of sensation in the feet. Atrial Fibrillation: - Taking Xarelto and flecainide. Review of Systems Respiratory: (+) cough, (-) shortness of breath Musculoskeletal: (+) right rib pain, (+) left knee swelling, (-) right arm pain Skin: (+) right arm bruising, (+) left knee bruising Neurological: (-) numbness of feet, (-) tingling of feet Objective BP 113/75 Pulse (!) 59 Temp 36.6 C (97.9 F) Resp 20 Wt 116 kg (255 lb 11.7 oz) SpO2 98% BMI 40.05 kg/m Physical Exam General: No acute distress. Resp: Good air exchange. MSK/Ext: Bruising on right arm, non-tender to palpation, full range of motion; mild bruising on right ribs, non-tender to palpation; bruising and mild swelling on left knee, non-tender to palpation. { 1. Pain (R52) 2. Contusion of rib on right side, initial encounter (S20.211A) 3. Contusion of left knee, initial encounter (S80.02XA) - Rib and knee pain following a fall 6 days ago; rib pain localized to right side, mid-axillary region, worsened with deep inspiration and coughing; left knee pain improved by 90% since . - Physical exam: bruising on right arm and left knee; no significant tenderness on palpation of ribs or knee; full range of motion in right arm; no loss of sensation in feet. - X-rays of ribs and left knee showed only degenerative changes and old fractures; no new acute findings. - Advised rest and use of Tylenol or Motrin for pain management; patient agreeable to care plan. - Instructed to follow up if needed in the future. and Recording using [employer] software for draft documentation of the visit was discussed with the patient/authorized sales representative business courses; all questions welcomed and answered. Patient/authorized sales representative business courses agreed to proceed MDM Procedures documented in this encounter [facility] 06-17-2025 History of Present illness Narrative Radiology Service Progress Note PATIENT NAME: Katelynn Campuzano DATE OF SERVICE: June 17, 2025 TIME: 11:37 AM PATIENT IDENTITY VERIFICATION COMPLETED USING TWO [...] place to prevent falls during this visit? Offered Assistance with Transfers/Clothing and Increased Observations by Caregivers PATIENT GENDER DATA: Assigned female at . status: : No status: NO. PATIENT RELEVANT IMPLANT DATA REVIEWED: Yes PATIENT PRESENTS WITH AN IMPLANTABLE OR ATTACHED COMMERCIAL MAKEUP ARTIST: No RADIOLOGY DEPARTMENT: General X-ray: Exam(s) Completed: Rib X-Ray: Right Lower Extremity X-Ray(s): Knee, AP / Lat / Tunne / Merchant Left PERIPHERAL IV DATA: Not applicable SIGNED BY: RT Olivia(Yani) June 17, 2025 11:37 AM documented in this encounter [facility] 06-17-2025 Note HNO ID: [id number] Author: SHARI BENITEZ RT(R) Service: ? Author Type: Battery Test Engineer Type: Progress Notes Filed: 06/17/2025 11:37 Note Text: Radiology Service Progress Note PATIENT NAME: Katelynn Campuzano DATE OF SERVICE: June 17, 2025 TIME: 11:37 AM PATIENT IDENTITY VERIFICATION COMPLETED USING TWO [...] place to prevent falls during this visit? Offered Assistance with Transfers/Clothing and Increased Observations by Caregivers PATIENT GENDER DATA: Assigned female at . status: : No status: NO. PATIENT RELEVANT IMPLANT DATA REVIEWED: Yes PATIENT PRESENTS WITH AN IMPLANTABLE OR ATTACHED COMMERCIAL MAKEUP ARTIST: No RADIOLOGY DEPARTMENT: General X-ray: Exam(s) Completed: Rib X-Ray: Right Lower Extremity X-Ray(s): Knee, AP / Lat / Tunne / Merchant Left PERIPHERAL IV DATA: Not applicable SIGNED BY: RT Olivia(Yani) June 17, 2025 11:37 AM [facility] 06-12-2025 History of Present illness Narrative Radiology Service Progress Note PATIENT NAME: Katelynn Campuzano DATE OF SERVICE: June 12, 2025 TIME: 3:05 PM PATIENT IDENTITY VERIFICATION COMPLETED USING TWO (2) IDENTIFIERS: Name and Date of confirmed by patient verbally. FALL SCREENING: Has the patient had 2 falls in the last year or 1 fall with injury or currently using an Ambulatory Assistive Device (Walker, Cane, Wheelchair, Crutches, etc.)? No PATIENT GENDER DATA: Assigned female at . status: : No status: NO. PATIENT RELEVANT IMPLANT DATA REVIEWED: Not Applicable PATIENT PRESENTS WITH AN IMPLANTABLE OR ATTACHED COMMERCIAL MAKEUP ARTIST: No RADIOLOGY DEPARTMENT: Ultrasound PERIPHERAL IV DATA: Not applicable SIGNED BY: Alta Smith RDMS RVChencho June 12, 2025 3:05 PM documented in this encounter [facility] 06-12-2025 Note HNO ID: [id number] Author: ALTA SMITH RDMS Service: ? Author Type: Still Runner Type: Progress Notes Filed: 06/12/2025 15:05 Note Text: Radiology Service Progress Note PATIENT NAME: Katelynn Campuzano DATE OF SERVICE: June 12, 2025 TIME: 3:05 PM PATIENT IDENTITY VERIFICATION COMPLETED USING TWO (2) IDENTIFIERS: Name and Date of confirmed by patient verbally. FALL SCREENING: Has the patient had 2 falls in the last year or 1 fall with injury or currently using an Ambulatory Assistive Device (Walker, Cane, Wheelchair, Crutches, etc.)? No PATIENT GENDER DATA: Assigned female at . status: : No status: NO. PATIENT RELEVANT IMPLANT DATA REVIEWED: Not Applicable PATIENT PRESENTS WITH AN IMPLANTABLE OR ATTACHED COMMERCIAL MAKEUP ARTIST: No RADIOLOGY DEPARTMENT: Ultrasound PERIPHERAL IV DATA: Not applicable SIGNED BY: Alta Smith RDMS RVChencho June 12, 2025 3:05 PM [facility] 06-01-2025 Telephone encounter Note Called to scheduling desk for airway check. Pt MP1 with full neck. Pt refers to incident with past intubation involving a hematoma. No anesthesia record found. Please schedule at surgery center or hospital. Thank you. [facility] Work Phone: 06-01-2025 Miscellaneous Notes Called to scheduling desk for airway check. Pt MP1 with full neck. Pt refers to incident with past intubation involving a hematoma. No anesthesia record found. Please schedule at surgery center or hospital. Thank you. documented in this encounter [facility] 06-01-2025 Note Addended by: RONAL BELL on: 06/01/2025 02:57 PM Modules accepted: Orders [facility] 06-01-2025 Miscellaneous Notes Addended by: RONAL BELL on: 06/01/2025 02:57 PM Modules accepted: Orders documented in this encounter [facility] 06-01-2025 Note HNO ID: [id number] Author: RONAL BELL APRN.MIGUEL Service: ? Author Type: Nurse Practitioner Type: Progress Notes Filed: 06/01/2025 14:54 Note Text: CHIEF COMPLAINT: Patient presents with: Esophageal dysphagia: Trouble swallowing, pain in the RUQ and RLQ mostly at night. This consult was requested by Cholo Soriano MD for an opinion regarding dysphagia. My final recommendations will be communicated to the requesting health care provider by way of the shared medical record for internal providers or letter via the [employer] for external providers. HPI: Katelynn Campuzano is a 75 year old female with a history of Gilbert syndrome who presents for Esophageal dysphagia (Trouble swallowing, pain in the RUQ and RLQ mostly at night.). Dysphagia began about 6 weeks ago. Saw PCP who ordered esophagram. Dysphagia is primarily with pills. Feels a globus sensation when swallowing pills on the left side of her throat above the sternal notch. Hx of a left pharyngeal hematoma noted on nasolaryngoscopy in 2017. extending from the nasopharynx to the base of the epiglottis. This occurred after heart ablation procedure. Was monitored in the ICU but discharged without intervention. She experienced similar symptoms at that time. RUQ pain: occurs primarily at night. Wakes her from sleep 4-5 nights/week. Does not notice any change in pain with food intake. Still has gallbladder Denies acid reflux, dyspepsia. PCP wrote for omeprazole 40mg daily in setting of possible duodenitis - she just got this today. Denies NSAID use, ETOH, tobacco. Diagnostics: 05/18/2025 - esophagram Findings: - esophagus without persistent narrowing. No mucosal abnormality or mass seen. - occasional mid to distal esophageal spasm - no reflux - incomplete dilation of the duodenum, likely duodenal mucosal thickening concerning for duodenitis Impression: - Findings concerning for duodenitis - Intermittent mid to distal esophageal spasms - No gastric or esophageal abnormality otherwise Record Review: [facility] / Outside records reviewed. PAST MEDICAL HISTORY Diagnosis Date Abnormality of nasal airway 04/12/2025 Acquired hypothyroidism 07/16/2016 Continue home Levothyroxine dose. Advance directive discussed with patient 04/11/2022 Discussed: 03/2022 Balance problems 02/26/2024 Bilateral renal cysts 11/26/2021 US 10/2021 Calcaneal spur 11/01/2007 COVID-19 virus infection 09/19/2022 09/18/2022 Diaphragmatic hernia without mention of obstruction or gangrene Encounter for gynecological examination 04/03/2021 Seeing UPHOLSTERY MECHANIC Essential hypertension 09/24/2010 On Atenolol and HCTZ GERD without esophagitis Gilbert syndrome 11/13/2021 Hip arthritis 07/23/2009 History of cardiac radiofrequency ablation History of COVID-19 09/19/2022 09/18/2022 Hyperlipidemia, mixed 10/04/2021 Hyperuricemia 06/06/[address] 04/11/2022 DPA: Sherman () Low serum vitamin B12 04/08/2021 Lumbar compression fracture (HCC) 04/15/2017 Lumbar degenerative disc disease 04/15/2017 Lyme disease Medicare annual wellness visit, subsequent 04/03/2021 Last [...] in the ICU and transferred to the [facility]. - discussed with the ENT team, r Osteopenia Paroxysmal atrial fibrillation (HCC) Personal history of colonic polyps Colon polyps Pulmonary hypertension (HCC) 05/06/2024 Seeing Pulm S/P ablation of atrial fibrillation 06/24/2017 Date of procedure 06/23/17. Indication: persistent atrial fibrillation. - restart anticoagulation on Thursday06/29/2017 SEC HYPERPARATHYROID, NON-RENAL 09/02/2005 Situational depression 06/07/2014 Skin cancer of nose 10/21/2023 basal cell Skin cancer screening 05/06/[address] Granda Tuberculin test reaction Unspecified hemorrhoids without mention [...] Colonoscopy COLONOSCOPY FLX DX W/COLLJ SPEC WHEN PFRM (more content not included)... [facility] 06-01-2025 History of Present illness Narrative CHIEF COMPLAINT: Patient presents with: Esophageal dysphagia: Trouble swallowing, pain in the RUQ and RLQ mostly at night. This consult was requested by Cholo Soriano MD for an opinion regarding dysphagia. My final recommendations will be communicated to the requesting health care provider by way of the shared medical record for internal providers or letter via the [employer] for external providers. HPI: Katelynn Campuzano is a 75 year old female with a history of Gilbert syndrome who presents for Esophageal dysphagia (Trouble swallowing, pain in the RUQ and RLQ mostly at night.). Dysphagia began about 6 weeks ago. Saw PCP who ordered esophagram. Dysphagia is primarily with pills. Feels a globus sensation when swallowing pills on the left side of her throat above the sternal notch. Hx of a left pharyngeal hematoma noted on nasolaryngoscopy in 2017. extending from the nasopharynx to the base of the epiglottis. This occurred after heart ablation procedure. Was monitored in the ICU but discharged without intervention. She experienced similar symptoms at that time. RUQ pain: occurs primarily at night. Wakes her from sleep 4-5 nights/week. Does not notice any change in pain with food intake. Still has gallbladder Denies acid reflux, dyspepsia. PCP wrote for omeprazole 40mg daily in setting of possible duodenitis - she just got this today. Denies NSAID use, ETOH, tobacco. Diagnostics: 05/18/2025 - esophagram Findings: - esophagus without persistent narrowing. No mucosal abnormality or mass seen. - occasional mid to distal esophageal spasm - no reflux - incomplete dilation of the duodenum, likely duodenal mucosal thickening concerning for duodenitis Impression: - Findings concerning for duodenitis - Intermittent mid to distal esophageal spasms - No gastric or esophageal abnormality otherwise Record Review: [facility] / Outside records reviewed. PAST MEDICAL HISTORY Diagnosis Date Abnormality of nasal airway 04/12/2025 Acquired hypothyroidism 07/16/2016 Continue home Levothyroxine dose. Advance directive discussed with patient 04/11/2022 Discussed: 03/2022 Balance problems 02/26/2024 Bilateral renal cysts 11/26/2021 US 10/2021 Calcaneal spur 11/01/2007 COVID-19 virus infection 09/19/2022 09/18/2022 Diaphragmatic hernia without mention of obstruction or gangrene Encounter for gynecological examination 04/03/2021 Seeing UPHOLSTERY MECHANIC Essential hypertension 09/24/2010 On Atenolol and HCTZ GERD without esophagitis Gilbert syndrome 11/13/2021 Hip arthritis 07/23/2009 History of cardiac radiofrequency ablation History of COVID-19 09/19/2022 09/18/2022 Hyperlipidemia, mixed 10/04/2021 Hyperuricemia 06/06/[address] 04/11/2022 DPA: [place] () Low serum vitamin B12 04/08/2021 Lumbar compression fracture (HCC) 04/15/2017 Lumbar degenerative disc disease 04/15/2017 Lyme disease Medicare annual wellness visit, subsequent 04/03/2021 Last [...] in the ICU and transferred to the [facility]. - discussed with the ENT team, r Osteopenia Paroxysmal atrial fibrillation (HCC) Personal history of colonic polyps Colon polyps Pulmonary hypertension (HCC) 05/06/2024 Seeing Pulm S/P ablation of atrial fibrillation 06/24/2017 Date of procedure 06/23/17. Indication: persistent atrial fibrillation. - restart anticoagulation on Thursday06/29/2017 SEC HYPERPARATHYROID, NON-RENAL 09/02/2005 Situational depression 06/07/2014 Skin cancer of nose 10/21/2023 basal cell Skin cancer screening 05/06/[address] Granda Tuberculin test reaction Unspecified hemorrhoids without mention [...] chest pain EGD TRANSORAL BIOPSY SINGLE/MULTIPLE 05/20/2011 LEFT HEART CATH,PERCUTANEOUS LIG/TRNSXJ FLP TUBE ABDL/VAG APPR UNI/BI MOHS HEAD/NECK STAGE 1 <=5 10/21/2023 Nose PAST SURGICAL HISTORY OF cataracts bilateral PAST SURGICAL HISTORY OF 06/23/2017 heart ablation PAST SURGICAL HISTORY OF 08/17/2018 heart ablation VAGINAL HYSTERECTOMY UTERUS 250 GM/< 1992 Hysterectomy, vaginal [fibroids and bleeding[[ Allergies: ALLERGIES Allergen Reactions Sulfa (Sulfonamide * Hives Penicillins Hives Medications: omeprazole (PRILOSEC) 40 mg capsule Take 1 capsule by mouth once daily. levothyroxine (SYNTHROID) 25 mcg tablet Take 1 tablet by mouth daily before breakfast. hydroCHLOROthiazide 25 mg tablet Take 1 tablet by mouth once daily. ketoconazole (NIZORAL) 2 % cream two times a day. allopurinol (ZYLOPRIM) 300 mg tablet Take 1 tablet by mouth two times a day. 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 Respiratory: Positive for choking and shortness of breath. All other systems reviewed and are negative. Are you taking any blood thinners? Yes, Xarelto Physical Examination: BP 114/76 Pulse 67 Ht 5' 7 (1.70m) Wt 256 lb (116.1kg) SpO2 97% BMI 40.09 kg/(m^2). Physical Exam Constitutional: Appearance: Normal appearance. She is obese. HENT: Head: Normocephalic and atraumatic. Eyes: General: No scleral icterus. Cardiovascular: Rate and Rhythm: Normal rate and regular rhythm. Heart sounds: Normal heart sounds. Pulmonary: Effort: Pulmonary effort is normal. Breath sounds: Normal breath sounds. Abdominal: General: Bowel sounds are normal. There is no distension. Palpations: Abdomen is soft. There is no mass. Tenderness: There is no abdominal tenderness. Hernia: No hernia is present. Skin: General: Skin is warm and dry. Neurological: Mental Status: She is alert and oriented to person, place, and time. Psychiatric: Mood and Affect: Mood normal. Behavior: Behavior normal. ASSESSMENT: 1. Esophageal dysphagia Intermittent dysphagia x6 weeks. Primarily with taking pills. Feels similar to episode in 2017 when she had left sided oropharyngeal hematoma. Esophagram on 05/18/25 notable for mid to distal esophageal spasms and possible duodenitis. - Begin omeprazole 40mg Daily as instructed by PCP - patient will report symptoms after 1-2 months on PPI then decide if she would like to proceed with EGD - EGD DIAGNOSTIC; Future 2. Abnormal upper gastrointestinal barium series Esophagram on 05/18/25 notable for mid to distal esophageal spasms and possible duodenitis. - begin PPI - EGD DIAGNOSTIC; Future 3. Esophageal spasm Plan for EGD after PPI trial to assess for etiologies of dysphagia. Consider esophageal manometry if no improvement. - EGD DIAGNOSTIC; Future 4. Duodenitis Possible duodenitis seen on esophagram in 04/2025. - start omeprazole 40mg daily - EGD DIAGNOSTIC; Future 5. RUQ pain (Primary) Possible duodenitis seen on esophagram. RUQ US in 2020 notable for cholelithiasis. RUQ pain does not change with eating. - US ABD RIGHT UPPER QUADRANT; Future - EGD DIAGNOSTIC; Future Supervising clinician was present and guided the care of the patient for the entire session on this date. All documentation was reviewed and agreed upon. Ronal Bell APRN.[employer]ER MACHINE DATE: 06/01/25 TIME: 1:55 PM documented in this encounter [facility] 06-01-2025 Telephone encounter Note Spoke with patient and scheduled. [facility] 06-01-2025 Miscellaneous Notes Spoke with patient and scheduled. Call to pt and notified her of results and recommendations below. Pt verbalized understanding. Notified pt her chart would be routed to the Schedulers to assist her in scheduling with GI. Pt verbalized understanding. Una Draper MA Let patient know the swallowing study is show and area of narrowing which is probably the source of her swallowing symptoms. It also shows some lower esophageal spasms. In addition to these findings it mentioned possible inflammation of the duodenum. This may be the source of the right upper back pain. I want to place her on omeprazole 40 mg a day to decrease her stomach acid production and refer her to our gastro group in [place]. Consult placed and medication is sent. Requested Prescriptions Signed Prescriptions Disp Refills omeprazole (PRILOSEC) 40 mg capsule 90 capsule 1 Sig: Take 1 capsule by mouth once daily. Please see pt message. Pt seen in office on 05/15/25. Testing has not been scanned into chart at this time. I have printed results from Upper GI/BA Swallow from [facility] and placed in your inbox to review. Una Draper MA documented in this encounter [facility] 05-31-2025 Telephone encounter Note Call to pt and notified her of results and recommendations below. Pt verbalized understanding. Notified pt her chart would be routed to the Schedulers to assist her in scheduling with GI. Pt verbalized understanding. Una Draper MA [facility] 05-31-2025 Telephone encounter Note Let patient know the swallowing study is show and area of narrowing which is probably the source of her swallowing symptoms. It also shows some lower esophageal spasms. In addition to these findings it mentioned possible inflammation of the duodenum. This may be the source of the right upper back pain. I want to place her on omeprazole 40 mg a day to decrease her stomach acid production and refer her to our gastro group in [place]. Consult placed and medication is sent. Requested Prescriptions Signed Prescriptions Disp Refills omeprazole (PRILOSEC) 40 mg capsule 90 capsule 1 Sig: Take 1 capsule by mouth once daily. [facility] 05-31-2025 Telephone encounter Note Please see pt message. Pt seen in office on 05/15/25. Testing has not been scanned into chart at this time. I have printed results from Upper GI/BA Swallow from [facility] and placed in your inbox to review. Una Draper MA [facility] 05-29-2025 Telephone encounter Note Vaccine already updated in pt's chart. Notified pt this has been completed. Una Draper MA [facility] 05-29-2025 Miscellaneous Notes Vaccine already updated in pt's chart. Notified pt this has been completed. Una Draper MA documented in this encounter [facility] 05-18-2025 Radiology Diagnostic study note [facility] Imaging Services [address] [place] [address] Upper GI w/BA Swallow MR#: [id number] Acct: [id number] Name: KATELYNN CAMPUZANO Rep #: [id number] : [id number] F [id number] From: Alex Lay MD PCP: Dr. Cholo Soriano MD Status: REG CLI Study:Upper GI w/BA Swallow Date of Exam: 05/18/25 Exam# [id number] Ordering Dr: Keshav Soriano MD PROCEDURE: UPPER GI W/BA SWALLOW 05/18/2025 REASON FOR EXAM: DYSPHAGIA, PHARYNGOESOPHAGEAL PHASE TECHNIQUE: Double contrast upper GI series and single and double contrast esophagram (combined dictation): COMPARISON: None. FINDINGS: Limited imaging of the thoracic spine demonstrates moderate degenerative changes, along with dextroscoliosis. The esophagus demonstrates no area of persistent narrowing. No mucosal abnormality or mass is seen. Occasional mid to distal esophageal spasm is noted, however. During the time of this examination, gastroesophageal reflux was not elicited. Evaluation of the duodenum is somewhat limited due to incomplete dilation, but thickening of mucosal folds is likely present, concerning for duodenitis. No gastric abnormality is identified. RAD/Upper GI w/BA Swallow IMPRESSION: 1. Findings concerning for possible duodenitis. 2. Intermittent mid to distal esophageal spasm. 3. No gastric or esophageal abnormality is otherwise identified. Reading Location: [place] [address] CC: Dr. Cholo Soriano MD ~ Crystal Slicer: Signed [facility] 05-16-2025 Telephone encounter Note Pt notified of same. Luis Alberto Sommers LPN [facility] 05-16-2025 Miscellaneous Notes Pt notified of tad. Luis Alberto Sommers LPN Let patient know repeat potassium was good. documented in this encounter [facility] 05-15-2025 Telephone encounter Note Let patient know repeat potassium was good. [facility] 05-15-2025 Instructions Cholo Soriano MD - 05/15/2025 8:24 AM EDT Please get labs done on or after 11/03/2025 prior to your next visit. We discussed your recent tick bite and other insect bites: - The area of concern has resolved, and no further treatment is needed at this time. Please monitor for any new redness, swelling, or signs of infection. We discussed your shoulder pain: - Since your shoulder is feeling better and you are not currently using it as much, no further action is needed at this time. If the pain worsens or becomes more limiting, we can revisit treatment options. We discussed your nighttime bladder discomfort: - This discomfort may be related to your bladder. It improves after urination, so continue to get up and urinate when needed. If symptoms worsen or change, please let me know. We discussed your potassium levels: - Your potassium was slightly low. I have ordered a repeat potassium test to confirm the levels. - Continue eating potassium-rich foods, such as bananas, to help maintain your levels. - If the repeat test confirms low potassium and dietary changes are insufficient, we may consider a potassium supplement. We discussed your cholesterol levels: - Your triglycerides were elevated at 214 (goal is 150 or less). Please try to reduce fats in your diet. - Your HDL (good cholesterol) was 40 (goal is 50 or higher). Increasing physical activity may help improve this level. - Your LDL (bad cholesterol) was 106, which is within a good range. We discussed your fungal infection: - You do not need to use ketoconazole cream unless you notice itching or a red area without a pimple. If you do, apply the cream until the area resolves, then continue for one additional week before stopping. - If you are unable to see the area, you can use a mirror or ask your to take a picture to help monitor it. We discussed your upcoming barium swallow test: - This test is scheduled for and will evaluate for any narrowing or constriction in your esophagus. - You do not need to stop taking Xarelto for this test. - Drink plenty of water on the day of the test to help dilute the barium and prevent constipation. We discussed your thyroid and parathyroid health: - Your calcium levels are stable and within a good range (9.9). This does not indicate any issues with your parathyroid at this time. - I have requested a thyroid ultrasound to be scheduled in August, as it will be due at that time. We discussed your routine follow-up: - I have ordered labs to be completed before your next visit, including an electrolyte panel (to check potassium and calcium), cholesterol panel, and thyroid test. - Please follow up with me in 6 months for your routine visit. Medications: - Refills for your medications have been sent to your preferred [facility] pharmacy. - Your hydrochlorothiazide may contribute to low potassium. If dietary changes are not sufficient, we may consider a potassium supplement after reviewing your repeat lab results. Additional instructions: - If you experience any new or worsening symptoms, please contact the office, . - Continue monitoring your health and let me know if you have any concerns. documented in this encounter [facility] 05-15-2025 Note HNO ID: [id number] Author: CHOLO SORIANO MD Service: ? Author Type: Physician Type: Progress Notes Filed: 05/15/2025 16:16 Note Text: Katelynn Campuzano is a 75 year old female here for a Medicare wellness visit. Medicare Health Risk Assessment General Health Good Exercise: Minutes/Day 50 min Exercise: Days/Week 5 days Alcohol: Daily Use Never Alcohol: Drinks/Day Patient does not drink Alcohol: 6 or more drinks Never Feel off balance Yes Concerns: Teeth/Dentures No Concerns: Sexual function No Troubled by feelings None of the above Frequency: Eating healthy diet More than half the days ADLs requiring help Housework; Walking Safety precautions in home/vehicle Yes Smoke, vape, chews tobacco No Difficulty hearing Yes Difficulty seeing No Current Providers Specialists: I have reviewed specialist-related care of the patient in the medical record. Medical/Family history review Reviewed and updated problem list, medical/surgical/family/social history, medications, and allergies. Opioid use review Opioid Medications (last 90 days) No data to display Anxiety/Depression screening PHQ-9 Score: 0. REECE-7 Score: 2 (Minimal Anxiety) Recommendation: no further intervention at this time Cognitive screening Mini Cog Score: 5 Cognitive screening reviewed and No further action needed (score 3-5). Mini-Cog Patient asked to remember the following three words: Banana, [place] and Chair Visuospatial/Executive Functioning: Clock drawin/2 (Normal clock with all number in correct sequence and position, hands are correct = 2 points, inability or refusal to draw a clock = 0) Three word recall: 3/3 Total score: 5/5 (Total score = word recall score + clock draw score) Functional Observation Was the patient's Timed Up AND Go test unsteady or >= 12 seconds? No, using a walker in office today. Denies any falls over the past year. Advance Care Planning Surrogate decision maker and/or advance care plan documented Measurements BP 110/70 (BP Site: Left Arm, BP Position: Sitting, BP Cuff Size: Large Adult) Pulse 60 Resp 16 Ht 170.2 cm (5' 7) Wt 116.3 kg (256 lb 6.4 oz) BMI 40.16 kg/m? Vision Screening: Follows with optometry/ophthalmology Assessment/Plan Medicare annual wellness visit, subsequent (Z00.00) - Counseled on healthy diet and regular exercise - Fall avoidance information provided - Personalized prevention plan provided See Below Chief Complaint Patient presents with: Medicare Wellness Exam HPI Katelynn Campuzano is a 75 year old female who presents here today for Chronic Medical Conditions. and Medicare Annual Visit. Patient with Hx hypothyroidism, HTN, GERD, hyperlipidemia, A. Fib, ROZ on CPAP, Hx of lung nodules, obesity, Hx of colon polyps, arthritis, osteopenia as well as those reviewed and addressed below and in ROS. Patient has been doing ok. The bite she my charted me on has resolved. Katelynn reports a recent suspected tick bite on her leg, which caused swelling and erythema but did not resemble a bullseye rash. The swelling has since subsided. She also sustained multiple other insect bites on her leg during the same weekend. She attempted to remove a foreign object from the suspected tick bite site but was unsure if it was a bug or a scab. She is currently under the care of Dr. Cheng for CPAP management and missed a scheduled lung function test last summer due to cristy COVID-19 twice. She expresses a preference to avoid annual CT scans unless deemed necessary by her professional bass fisher, Dr. Wood, in [place]. Katelynn has a history of Mohs surgery on her nose and was considering shoulder surgery but decided against it due to improvement in symptoms. She attributes the initial shoulder pain to pushing her in a wheelchair during the winter, which she believes may have caused inflammation. She denies recent fevers, frequent cephalalgia, new changes in hearing or vision, wheezing, dyspnea, hemoptysis, chest pain, palpitations, leg swelling, nausea, emesis, diarrhea, heartburn, hematochezia, hematuria, syncope, seizures, or tremors. She reports a history of declining hearing and is considering exploring more affordable hearing aid options. She also notes a swallowing issue, for which she has a scheduled test on . She experiences nocturnal discomfort in her lower right side, which improves after micturition. This discomfort occurs almost every night around 0300 and can delay her return to sleep by approximately 30 minutes. She denies any new changes in heat or cold tolerance but mentions that her feet get cold, which she attributes to walking barefoot in her house. Approximately 6 weeks ago, she experienced a brief episode of dyspnea lasting about 30 seconds, which she associates with emotional stress and suspects may be related to laryngeal spasm. She is currently completed a course of ketoconazole for a f (more content not included)... [facility] 05-15-2025 History of Present illness Narrative Katelynn Campuzano is a 75 year old female here for a Medicare wellness visit. Medicare Health Risk Assessment General Health Good Exercise: Minutes/Day 50 min Exercise: Days/Week 5 days Alcohol: Daily Use Never Alcohol: Drinks/Day Patient does not drink Alcohol: 6 or more drinks Never Feel off balance Yes Concerns: Teeth/Dentures No Concerns: Sexual function No Troubled by feelings None of the above Frequency: Eating healthy diet More than half the days ADLs requiring help Housework; Walking Safety precautions in home/vehicle Yes Smoke, vape, chews tobacco No Difficulty hearing Yes Difficulty seeing No Current Providers Specialists: I have reviewed specialist-related care of the patient in the medical record. Medical/Family history review Reviewed and updated problem list, medical/surgical/family/social history, medications, and allergies. Opioid use review Opioid Medications (last 90 days) No data to display Anxiety/Depression screening PHQ-9 Score: 0. REECE-7 Score: 2 (Minimal Anxiety) Recommendation: no further intervention at this time Cognitive screening Mini Cog Score: 5 Cognitive screening reviewed and No further action needed (score 3-5). Mini-Cog Patient asked to remember the following three words: Banana, [place] and Chair Visuospatial/Executive Functioning: Clock drawin/2 (Normal clock with all number in correct sequence and position, hands are correct = 2 points, inability or refusal to draw a clock = 0) Three word recall: 3/3 Total score: 5/5 (Total score = word recall score + clock draw score) Functional Observation Was the patient's Timed Up & Go test unsteady or >= 12 seconds? No, using a walker in office today. Denies any falls over the past year. Advance Care Planning Surrogate decision maker and/or advance care plan documented Measurements BP 110/70 (BP Site: Left Arm, BP Position: Sitting, BP Cuff Size: Large Adult) Pulse 60 Resp 16 Ht 170.2 cm (5' 7) Wt 116.3 kg (256 lb 6.4 oz) BMI 40.16 kg/m Vision Screening: Follows with optometry/ophthalmology Assessment/Plan Medicare annual wellness visit, subsequent (Z00.00) - Counseled on healthy diet and regular exercise - Fall avoidance information provided - Personalized prevention plan provided See Below Chief Complaint Patient presents with: Medicare Wellness Exam HPI Katelynn Campuzano is a 75 year old female who presents here today for Chronic Medical Conditions. and Medicare Annual Visit. Patient with Hx hypothyroidism, HTN, GERD, hyperlipidemia, A. Fib, ROZ on CPAP, Hx of lung nodules, obesity, Hx of colon polyps, arthritis, osteopenia as well as those reviewed and addressed below and in ROS. Patient has been doing ok. The bite she my charted me on has resolved. Katelynn reports a recent suspected tick bite on her leg, which caused swelling and erythema but did not resemble a bullseye rash. The swelling has since subsided. She also sustained multiple other insect bites on her leg during the same weekend. She attempted to remove a foreign object from the suspected tick bite site but was unsure if it was a bug or a scab. She is currently under the care of Dr. Cheng for CPAP management and missed a scheduled lung function test last summer due to cristy COVID-19 twice. She expresses a preference to avoid annual CT scans unless deemed necessary by her professional bass fisher, Dr. Wood, in [place]. Katelynn has a history of Mohs surgery on her nose and was considering shoulder surgery but decided against it due to improvement in symptoms. She attributes the initial shoulder pain to pushing her in a wheelchair during the winter, which she believes may have caused inflammation. She denies recent fevers, frequent cephalalgia, new changes in hearing or vision, wheezing, dyspnea, hemoptysis, chest pain, palpitations, leg swelling, nausea, emesis, diarrhea, heartburn, hematochezia, hematuria, syncope, seizures, or tremors. She reports a history of declining hearing and is considering exploring more affordable hearing aid options. She also notes a swallowing issue, for which she has a scheduled test on . She experiences nocturnal discomfort in her lower right side, which improves after micturition. This discomfort occurs almost every night around 0300 and can delay her return to sleep by approximately 30 minutes. She denies any new changes in heat or cold tolerance but mentions that her feet get cold, which she attributes to walking barefoot in her house. Approximately 6 weeks ago, she experienced a brief episode of dyspnea lasting about 30 seconds, which she associates with emotional stress and suspects may be related to laryngeal spasm. She is currently completed a course of ketoconazole for a fungal infection and inquires about the necessity of continuing the medication for prevention. She is also on allopurinol for gout management and is monitoring her uric acid levels. She reports taking Tums as recommended and is consuming bananas to address low potassium levels. She denies any pruritus or discomfort related to her fungal infection. Past medical history, appointments, medications, allergies reviewed. Previous Medical History PAST MEDICAL HISTORY Diagnosis Date Abnormality of nasal airway 04/12/2025 Acquired hypothyroidism 07/16/2016 Continue home Levothyroxine dose. Advance directive discussed with patient 04/11/2022 Discussed: 03/2022 Balance problems 02/26/2024 Bilateral renal cysts 11/26/2021 US 10/2021 Calcaneal spur 11/01/2007 COVID-19 virus infection 09/19/2022 09/18/2022 Diaphragmatic hernia without mention of obstruction or gangrene Encounter for gynecological examination 04/03/2021 Seeing UPHOLSTERY MECHANIC Essential hypertension 09/24/2010 On Atenolol and HCTZ GERD without esophagitis Gilbert syndrome 11/13/2021 Hip arthritis 07/23/2009 History of cardiac radiofrequency ablation History of COVID-19 09/19/2022 09/18/2022 Hyperlipidemia, mixed 10/04/2021 Hyperuricemia 06/06/[address] 04/11/2022 DPA: Sherman () Low serum vitamin B12 04/08/2021 Lumbar compression fracture (HCC) 04/15/2017 Lumbar degenerative disc disease 04/15/2017 Lyme disease Medicare annual wellness visit, subsequent 04/03/2021 Last [...] in the ICU and transferred to the [facility]. - discussed with the ENT team, r Osteopenia Paroxysmal atrial fibrillation (HCC) Personal history of colonic polyps Colon polyps Pulmonary hypertension (HCC) 05/06/2024 Seeing Pulm S/P ablation of atrial fibrillation 06/24/2017 Date of procedure 06/23/17. Indication: persistent atrial fibrillation. - restart anticoagulation on Thursday06/29/2017 SEC HYPERPARATHYROID, NON-RENAL 09/02/2005 Situational depression 06/07/2014 Skin cancer of nose 10/21/2023 basal cell Skin cancer screening 05/06/[address] 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 allopurinol (ZYLOPRIM) 300 mg tablet Take 1 tablet by mouth two times a day. hydroCHLOROthiazide 25 mg tablet Take 1 tablet by mouth once daily. levothyroxine (SYNTHROID) 25 mcg tablet Take 1 tablet by mouth daily before breakfast. WALKER ROLLATOR SEAT WITH 6 WHEELS - RED R26.89 and R29.6 flecainide (TAMBOCOR) 100 mg tablet TAKE 1 TABLET BY MOUTH EVERY 12 HOURS (DOSE INCREASE) cyanocobalamin (VITAMIN B-12) 1,000 mcg tab Take [...] Never Smokeless tobacco: Never Vaping Use Vaping status: Never Used Substance Use Topics Alcohol use: Never Drug use: No Review of Symptoms REVIEW OF SYSTEMS GENERAL: No weight loss, malaise or fevers HEENT: Negative for frequent or significant headaches, No changes in vision, no nose bleeds or other nasal problems. Hearing has ronaldo decreasing. NECK: Negative for lumps, goiter, pain and significant neck swelling RESPIRATORY: Negative for cough, hemoptysis, wheezing, COPD, dyspnea or shortness of breath CARDIOVASCULAR: Negative for chest pain, leg swelling, hypertension, CHF or palpitations GI: No nausea, vomiting, or diarrhea, No heartburn or reflux symptoms, and no blood. Gets pain in the right power abdomen at night and once she goes pee it resolves. : No history of dysuria, frequency or blood MUSCULOSKELETAL: Negative for new or changes in her typical joint pain or swelling, back pain or muscle pain SKIN: sees derm PSYCH: Negative for sleep disturbance, mood disorder and recent psychosocial stressors HEMATOLOGY/LYMPHOLOGY: Negative for prolonged bleeding, bruising easily or swollen nodes ENDOCRINE: Negative for cold or heat intolerance, polyuria, polydipsia and goiter NEURO: No history of headaches, syncope, paralysis, seizures or tremors SEE HPI EXAM: BP 110/70 (BP Site: Left Arm, BP Position: Sitting, BP Cuff Size: Large Adult) Pulse 60 Resp 16 Ht 170.2 cm (5' 7) Wt 116.3 kg (256 lb 6.4 oz) BMI 40.16 kg/m Last 6 Encounter Wt Readings: Date: Wt: 05/15/2025 116.3 kg (256 lb 6.4 oz) 04/28/2025 117 kg (258 lb) 04/12/2025 117 kg (258 lb) 04/06/2025 117 kg (257 lb 15 oz) 01/20/2025 114.8 kg (253 lb) 12/23/2024 116.1 kg (255 lb 15.3 oz) General Appearance: Well appearing, alert, in no acute distress, well-hydrated, well nourished. and Morbidly obese. Skin: sees derm. Head: Normocephalic, no masses, lesions, tenderness or [...] organomegaly. Extremities: No deformities, edema, skin discoloration, . Good capillary refill. . Musculoskeletal: No joint swelling, deformity, or tenderness. Strength intact. Peripheral Pulses: Normal. Neurologic: Gait normal. Reflexes normal and symmetric. Sensation to light touch and crainal nerves 2-12 intact.. Health Maintenance List Advance Directive Discussion due on 11/23/2024 Medicare Annual Wellness Visit due on 05/06/2025 Annual PCP Team Chronic Disease Visit due on 05/15/2026 Anxiety Screening due on 05/15/2026 Diabetes Screening due on 04/12/2028 DTaP,Tdap,Td Vaccine(6 - Td or Tdap) due on 09/02/2032 Bone Density Screening Completed Influenza Vaccine Completed RSV Vaccine Completed Hepatitis C Screening Completed Shingrix Vaccine Completed Covid-19 Vaccine Completed Pneumococcal Vaccine: 50+ Completed Mammogram Screening Discontinued Colorectal Cancer Screening Discontinued Data reviewed Latest Ref Rng 04/26/2024 10/24/2024 04/12/2025 04/28/2025 WBC 3.70 - 11.00 k/uL 6.15 9.08 RBC 3.90 - 5.20 m/uL 3.98 3.93 Hemoglobin 11.5 - 15.5 g/dL 12.1 12.0 Hematocrit 36.0 - 46.0 % 36.8 36.2 MCV 80.0 - 100.0 fL 92.5 92.1 MCH 26.0 - 34.0 pg 30.4 30.5 MCHC 30.5 - 36.0 g/dL 32.9 33.1 RDW-CV 11.5 - 15.0 % 13.5 13.6 Platelet Count 150 - 400 k/uL 245 270 MPV 9.0 - 12.7 fL 10.2 9.9 Neut% % 61.4 72.9 Abs Neut (ANC) 1.45 - 7.50 k/uL 3.78 6.62 Lymph% % 28.1 19.9 Abs Lymph 1.00 - 4.00 k/uL 1.73 1.81 Redwood% % 7.5 5.0 Abs Redwood <0.87 k/uL 0.46 0.45 Eosin% % 1.8 1.2 Abs Eosin <0.46 k/uL 0.11 0.11 Baso% % 0.7 0.7 Abs Baso <0.11 k/uL 0.04 0.06 Immature Gran % % 0.5 0.3 IMMATURE GRANS (ABS) <0.10 k/uL 0.03 0.03 NRBC /100 WBC 0.0 0.0 Absolute nRBC <0.01 k/uL <0.01 <0.01 DTYPE Auto Auto Color Yellow Yellow Yellow Clarity Clear Clear Clear Glucose, Urine Negative Negative Negative Bilirubin, Urine Negative Negative Negative Ketones, Urine Negative Negative Negative Specific Trimble, Ur 1.005 - 1.030 1.013 1.016 Hemoglobin/Blood,Ur Negative Negative Negative pH, Urine <8.5 6.5 5.5 Protein, Urine Negative Negative Negative Urobilinogen 0.2-1.0 EU/dL 0.2 EU/dL 0.2 EU/dL Nitrites Negative Negative Negative Leukest Negative Trace ! Negative WBC, Urine 0-5 /HPF 0-5 /HPF 0-5 /HPF RBC, Urine 0-2 /HPF 3-5 /HPF ! 0-2 /HPF Bacteria Negative /HPF Negative Negative Epithelial Cells /HPF Few None Seen Hyaline Cast 0 /LPF 0 /LPF 0 /LPF Protein, Total 6.3 - 8.0 g/dL 7.1 6.9 Albumin 3.9 - 4.9 g/dL 4.4 4.1 Calcium 8.5 - 10.2 mg/dL 10.2 10.1 9.9 Bilirubin, Total 0.2 - 1.3 mg/dL 1.4 (H) 1.0 Alkaline Phosphatase 34 - 123 U/L 109 110 AST 13 - 35 U/L 15 17 ALT 7 - 38 U/L 9 13 Glucose 74 - 99 mg/dL 97 103 (H) 120 (H) BUN 7 - 21 mg/dL 21 21 23 (H) Creatinine 0.58 - 0.96 mg/dL 0.78 0.88 0.78 Sodium 136 - 144 mmol/L 135 (L) 138 137 Potassium 3.7 - 5.1 mmol/L 4.2 3.6 (L) 3.6 (L) Chloride 98 - 107 mmol/L 100 102 102 CO2 22 - 30 mmol/L 27 24 22 Anion Gap 8 - 15 mmol/L 8 12 13 eGFR >=60 mL/min/1.73m 79 69 79 GLUCOSE UA (POCT) Negative mg/dL Negative BILIRUBIN UA (POCT) Negative Negative KETONE UA (POCT) Negative mg/dL Negative SPECIFIC GRAVITY UA (POCT) 1.005 - 1.030 1.015 HEMOGLOBIN/BLOOD UA (POCT) Negative Negative PH UA (POCT) 4.5 - 8.0 5.5 PROTEIN UA (POCT) Negative mg/dL Negative UROBILINOGEN UA (POCT) Normal E.U./dL 0.2 NITRITE UA (POCT) Negative Negative LEUKOCYTES UA (POCT) Negative Negative COLOR UA (POCT) Yellow CLARITY UA (POCT) Clear Total Cholesterol, Nonfasting <200 mg/dL 186 194 183 Triglycerides, Nonfasting <150 mg/dL 248 (H) 151 (H) 214 (H) HDL Cholesterol, Nonfasting >39 mg/dL 33 (L) 43 40 LDL Cholesterol Calculated, Nonfasting <100 mg/dL 103 (H) 121 (H) 106 (H) Non HDL Cholesterol, Nonfasting <130 mg/dL 153 (H) 151 (H) 143 (H) VLDL Cholesterol, Nonfasting <30 mg/dL 50 (H) 30 (H) 36 (H) Total Chol/HDL Ratio, Nonfasting <5.10 mg/dL 5.64 (H) 4.51 4.58 LDL/HDL Ratio, Nonfasting <2.54 mg/dL 3.12 (H) 2.81 (H) 2.65 (H) TSH 0.270 - 4.200 mIU/L 2.500 3.220 2.210 Vitamin B12 232 - 1,245 pg/mL 1,029 970 Uric Acid 2.5 - 6.6 mg/dL 3.8 3.6 Assessment and Plan 1. Medicare annual wellness visit, subsequent (Z00.00) Comprehensive review of systems and physical examination performed. Discussed current health status, recent lab results, and ongoing management of chronic conditions. - Scheduled follow-up in 6 months for routine evaluation. - Ordered repeat labs including electrolytic panel, cholesterol, and thyroid test prior to next visit. - pt to wortk on weight loss. 2. Essential hypertension (I10) Blood pressure is well-controlled on current medication regimen. Continue current antihypertensive therapy. 3. Hyperlipidemia, mixed (E78.2) Recent lab results show triglycerides at 214 mg/dL and HDL at 40 mg/dL. Encouraged dietary modifications to reduce triglycerides and increase physical activity to improve HDL levels. 4. GERD without esophagitis (K21.9) Patient scheduled for a barium swallow test on to evaluate for any esophageal narrowing or constriction. - Advised patient to drink plenty of water on the day of the test to prevent constipation from barium. - Will review results and follow up as needed. - GERD has been managed by dietary changes. 5. Acquired hypothyroidism (E03.9) Thyroid function tests are within normal limits. Continue current thyroid hormone replacement therapy. 6. Thyroid nodule (E04.1) Thyroid ultrasound scheduled for August. Will review ultrasound results and follow up as needed. 7. Paroxysmal atrial fibrillation (HCC) (I48.0) Patient is currently on Xarelto for anticoagulation. Continue Xarelto therapy. - cont f/u with cardio for management. 8. Hyperparathyroidism (HCC) (E21.3) Calcium levels are stable at 9.9 mg/dL. Monitor calcium levels regularly. 9. Pulmonary hypertension (HCC) (I27.20) Patient is under the care of Dr. Cheng for CPAP management. No recent episodes of wheezing or dyspnea reported. Continue CPAP therapy and follow up with Dr. Cheng as needed. 10. Situational depression (F43.21) Patient reports occasional episodes of shortness of breath when emotional, possibly related to laryngeal spasm. Monitor symptoms and consider referral to mental health services if symptoms worsen. 11. BMI 40.0-44.9, adult (HCC) (Z68.41) Discussed the importance of weight management in controlling comorbid conditions. Encouraged dietary modifications and increased physical activity. 12. Low serum vitamin B12 (E53.8) Vitamin B12 levels are within normal limits. Continue current supplementation if applicable. 13. Obstructive sleep apnea syndrome (G47.33) Patient is compliant with CPAP therapy. Continue CPAP therapy and follow up with Dr. Cheng as needed. 14. Osteopenia, unspecified location (M85.80) Discussed the importance of calcium and vitamin D supplementation. Continue current supplementation. 15. Hypokalemia (E87.6) Recent lab results show low potassium levels, possibly due to hydrochlorothiazide therapy. - Ordered repeat potassium level. - Advised dietary intake of potassium-rich foods. - Wi, ll consider potassium supplementation if levels remain low. 16. Advance directive discussed with patient (Z71.89) Discussed the importance of advance directives and ensuring patient's wishes are documented. up to date and copies in chart. 17. Encounter for screening examination for other mental health and behavioral disorders (Z13.39) Screening for mental health and behavioral disorders performed. Monitor for any signs of mental health issues and refer to appropriate services if needed. F/u 6 months routine. Check BMP, lipid and TSH prior. Cholo Soriano MD I spent a total of 40 minutes on the date of the service which included preparing to see the patient, [id number] patient care, completing clinical documentation, performing a medically appropriate examination, counseling and educating the patient/family/caregiver and ordering medications, tests, or procedures. Recording using [employer] software for draft documentation of the visit was discussed with the patient/authorized sales representative business courses; all questions welcomed and answered. Patient/authorized sales representative business courses agreed to proceed documented in this encounter [facility] 05-01-2025 Telephone encounter Note Pt notified and verbalized understanding Santa Burroughs MA [facility] 05-01-2025 Miscellaneous Notes Pt notified and verbalized understanding Santa Burroughs MA Please let patient know their xray is normal. documented in this encounter [facility] 05-01-2025 Telephone encounter Note Please let patient know their xray is normal. [facility] Work Phone: 04-28-2025 History of Present illness Narrative Radiology Service Progress Note PATIENT NAME: Katelynn Campuzano DATE OF SERVICE: April 28, 2025 TIME: 10:11 AM PATIENT IDENTITY VERIFICATION COMPLETED USING TWO (2) IDENTIFIERS: Name and Date of confirmed by patient verbally. FALL SCREENING: Has the patient had 2 falls in the last year or 1 fall with injury or currently using an Ambulatory Assistive Device (Walker, Cane, Wheelchair, Crutches, etc.)? No PATIENT GENDER DATA: Assigned female at . status: : No status: NO. PATIENT RELEVANT IMPLANT DATA REVIEWED: Not Applicable PATIENT PRESENTS WITH AN IMPLANTABLE OR ATTACHED COMMERCIAL MAKEUP ARTIST: No RADIOLOGY DEPARTMENT: General X-ray: Exam(s) Completed: Rib X-Ray: Right PERIPHERAL IV DATA: Not applicable SIGNED BY: Davi Beasley April 28, 2025 10:11 AM documented in this encounter [facility] 04-28-2025 Note HNO ID: [id number] Author: LAINE CRISTOBAL Tech Service: ? Author Type: Technologist Type: Progress Notes Filed: 04/28/2025 10:11 Note Text: Radiology Service Progress Note PATIENT NAME: Katelynn Campuzano DATE OF SERVICE: April 28, 2025 TIME: 10:11 AM PATIENT IDENTITY VERIFICATION COMPLETED USING TWO (2) IDENTIFIERS: Name and Date of confirmed by patient verbally. FALL SCREENING: Has the patient had 2 falls in the last year or 1 fall with injury or currently using an Ambulatory Assistive Device (Walker, Cane, Wheelchair, Crutches, etc.)? No PATIENT GENDER DATA: Assigned female at . status: : No status: NO. PATIENT RELEVANT IMPLANT DATA REVIEWED: Not Applicable PATIENT PRESENTS WITH AN IMPLANTABLE OR ATTACHED COMMERCIAL MAKEUP ARTIST: No RADIOLOGY DEPARTMENT: General X-ray: Exam(s) Completed: Rib X-Ray: Right PERIPHERAL IV DATA: Not applicable SIGNED BY: Davi Beasley April 28, 2025 10:11 AM [facility] 04-28-2025 Instructions Cholo Soriano MD - 04/28/2025 9:44 AM EDT We discussed your recent symptoms and concerns: - Lyme Disease and Rash: - You completed the doxycycline treatment last week for Lyme disease. The bullseye rash on your buttocks has significantly improved. - Continue applying ketoconazole 2% cream to the fungal rash on your buttocks twice daily for another 10 days. This should help resolve the remaining rash. - Difficulty Swallowing: - You reported new difficulty swallowing, particularly with pills, which started at the end of your doxycycline treatment. - We will schedule a swallowing study at [facility] to evaluate this further. - Back Pain: - You described pain in your back, particularly at night and with certain movements. This is likely musculoskeletal in nature. - Continue taking Tylenol as needed for pain relief. Avoid ibuprofen due to your use of Xarelto. - Perform gentle stretching exercises that feel comfortable and avoid any movements that cause sharp pain. - Urinary Symptoms: - You mentioned occasional discomfort in your lower abdomen at night that resolves after urination. - A urine test was ordered today to check for blood. If blood is present, we will proceed with a CT scan to evaluate for kidney stones. If no blood is found, the pain is likely musculoskeletal and should improve with time. - Rib Pain: - You reported pain in your ribs, which may be related to a possible rib fracture or strain. - An x-ray of your ribs has been ordered to rule out a fracture. - Shoulder Surgery: - You decided to delay your shoulder surgery until your current symptoms are resolved. From what I see today, there is no indication that your symptoms would prevent you from proceeding with surgery. Follow-Up and Next Steps: - Continue using ketoconazole cream for 10 more days. - Perform gentle stretching exercises for your back pain. - Take Tylenol as needed for pain relief. - Complete the urine test today. If blood is found, we will order a CT scan to check for kidney stones. - We will schedule a swallowing study at [facility] to evaluate your difficulty swallowing. - An x-ray of your ribs will be completed to assess for any fractures. - Your next wellness check is scheduled in 3 weeks. We will review your test results and discuss any further steps at that time. Please let me know if your symptoms worsen or if you have any new concerns before your next visit. documented in this encounter [facility] 04-28-2025 History of Present illness Narrative Chief Complaint Patient presents with: Follow Up HPI Katelynn Campuzano is a 75 year old female who presents here today for follow up on lyme. Patient was see 04/06/2025 in and dx with Acute Lyme disease and given doxycycline for treatment. Patient was then seen in [facility] ER on 04/10/2025 for Rash was given cream to apply to buttocks. She is here today to follow up. Katelynn Campuzano is a 75-year-old female with a history of Lyme disease, dysphagia, and osteopenia, presenting with multiple concerns including dysphagia, back pain, and a fungal rash. Katelynn reports new onset dysphagia, which began at the end of a course of doxycycline completed last for Lyme disease. She describes the sensation as if pills are getting stuck, more so than food, and notes that drinking fluids helps alleviate the feeling. She denies heartburn, epigastric burning, or frequent nausea. Katelynn has a history of dysphagia 10 years ago, which was managed with Prilosec or Nexium, but has not had issues since. She also mentions a hematoma in her throat on the left side following a cardiac ablation for atrial fibrillation in 2016, and wonders if scar tissue could be contributing to her current symptoms. She is not currently taking any acid-reducing medications. Katelynn also reports back pain, which she describes as a new kidney thing that is painful at night and with certain movements, such as twisting during exercise. The pain is located in the back and does not radiate. She denies dysuria, hematuria, urinary frequency, or urgency. Katelynn has no history of nephrolithiasis, but believes she may be susceptible due to calcium ideas and stuff. She had a urinalysis on April 14 as part of her pre-surgery check-in for a wellness visit. Additionally, Katelynn has a fungal rash on her buttocks, for which she has been applying ketoconazole 2% cream BID for the past 10 days. The rash has improved but is still present. She also reports a bullseye rash on her upper body, which was diagnosed as Lyme disease without a blood test. She completed a course of doxycycline for this last week. Katelynn has a history of osteopenia and is due for a thyroid ultrasound in August for a thyroid nodule. She is currently taking Xarelto and Tylenol, and avoids ibuprofen. She canceled a scheduled shoulder surgery due to her current health concerns. My chart note 04/25/2025 my concern is if it s connected to Lyme or doxeycycline. Two things: 1.Having a little trouble feeling like I can t get pills swallowed for one thing. 2.The second thing is pain in right kidney area. *Started at end of doxy last *stabbing Pain mostly in back but started under my ribs near the site of Lyme rash. Most pain when flat in bed. No pain in recliner. Day is better than night. *Drinking water, taking Tylenol. *I believe I have a cyst on that kidney. Also thinking maybe a stone..,really wondering about the Lyme disease. Probably need an appointment for this now? Also would I need a blood test to check on Lyme? Two weeks of doxycycline Ended April 20. Sorry everything seems to be happening at once! A little guidance My chart note 04/19/2025 es the bullseye rash has faded. Almost done with doxycycline. The second issue was red streaks on my rear 3 days after the Lyme diagnosis and I worried about MRSA so went to ER. Pain in my hip joint also flared. That area was thought to be ringworm (?)and is improving with cream. I m fine just didn t think it was right for surgery! Past medical history, appointments, medications, allergies reviewed. Previous Medical History PAST MEDICAL HISTORY Diagnosis Date Acquired hypothyroidism 07/16/2016 Continue home Levothyroxine dose. Advance directive discussed with patient 04/11/2022 Discussed: 03/2022 Bilateral renal cysts 11/26/2021 US 10/2021 Calcaneal spur 11/01/2007 COVID-19 virus infection 09/19/2022 09/18/2022 Diaphragmatic hernia without mention of obstruction or gangrene Encounter for gynecological examination 04/03/2021 Seeing UPHOLSTERY MECHANIC Essential hypertension 09/24/2010 On Atenolol and HCTZ GERD without esophagitis Gilbert syndrome 11/13/2021 Hip arthritis 07/23/2009 History of cardiac radiofrequency ablation History of COVID-19 09/19/2022 09/18/2022 Hyperlipidemia, mixed 10/04/2021 Hyperuricemia 06/06/[address] 04/11/2022 DPA: Sherman () Low serum vitamin B12 04/08/2021 Lumbar compression fracture (HCC) 04/15/2017 Lumbar degenerative disc disease 04/15/2017 Lyme disease Medicare annual wellness visit, subsequent 04/03/2021 Last [...] in the ICU and transferred to the [facility]. - discussed with the ENT team, r Osteopenia Paroxysmal atrial fibrillation (HCC) Personal history of colonic polyps Colon polyps Pulmonary hypertension (HCC) 05/06/2024 Seeing Pulm S/P ablation of atrial fibrillation 06/24/2017 Date of procedure 06/23/17. Indication: persistent atrial fibrillation. - restart anticoagulation on Thursday06/29/2017 SEC HYPERPARATHYROID, NON-RENAL 09/02/2005 Situational depression 06/07/2014 Skin cancer of nose 10/21/2023 basal cell Skin cancer screening 05/06/[address] 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 allopurinol (ZYLOPRIM) 300 mg tablet Take 1 tablet by mouth two times a day. hydroCHLOROthiazide 25 mg tablet Take 1 tablet by mouth once daily. levothyroxine (SYNTHROID) 25 mcg tablet Take 1 tablet by mouth daily before breakfast. WALKER ROLLATOR SEAT WITH 6 WHEELS - RED R26.89 and R29.6 flecainide (TAMBOCOR) 100 mg tablet TAKE 1 TABLET BY MOUTH EVERY 12 HOURS (DOSE INCREASE) cyanocobalamin (VITAMIN B-12) 1,000 mcg tab Take [...] Never Smokeless tobacco: Never Vaping Use Vaping status: Never Used Substance Use Topics Alcohol use: Never Drug use: No Review of Symptoms REVIEW OF SYSTEMS SEE HPI EXAM: BP 104/64 Pulse 60 Resp 18 Wt 117 kg (258 lb) BMI 40.41 kg/m General Appearance: Well appearing, alert, in no acute distress, well-hydrated, well nourished.. Skin: Skin color, texture, turgor normal, bulls eye rash on the right upper abdomen is resolved. The rash on the butt checks along the mid portion of the crack is almost completely gone. Lungs: Lungs clear to auscultation. No wheezing, rhonchi, rales.. Heart: RRR without murmur, gallop, or rubs. No ectopy. Abdomen: Normal abdominal exam, Abdomen soft, non-tender. Bowel sounds normal. No masses, organomegaly. Musculoskeletal: No pain to palpation of the paraspinal muscles on the right, posterior ribs or CVA tenderness. Thre is mild tenderness to palpation of the the right lateral ribs. No step off's or bruising appreciated. . Health Maintenance List Anxiety Screening Never done Advance Directive Discussion due on 11/23/2024 Annual PCP Team Chronic Disease Visit due on 04/28/2026 BP Controlled (<130/80) due on 04/28/2026 Diabetes Screening due on 04/12/2028 DTaP,Tdap,Td Vaccine(6 - Td or Tdap) due on 09/02/2032 Bone Density Screening Completed Influenza Vaccine Completed RSV Vaccine Completed Hepatitis C Screening Completed Shingrix Vaccine Completed Covid-19 Vaccine Completed Pneumococcal Vaccine: 50+ Completed Mammogram Screening Discontinued Colorectal Cancer Screening Discontinued Data reviewed Latest Ref Rng 04/28/2025 GLUCOSE UA (POCT) Negative mg/dL Negative BILIRUBIN UA (POCT) Negative Negative KETONE UA (POCT) Negative mg/dL Negative SPECIFIC GRAVITY UA (POCT) 1.005 - 1.030 1.015 HEMOGLOBIN/BLOOD UA (POCT) Negative Negative PH UA (POCT) 4.5 - 8.0 5.5 PROTEIN UA (POCT) Negative mg/dL Negative UROBILINOGEN UA (POCT) Normal E.U./dL 0.2 NITRITE UA (POCT) Negative Negative LEUKOCYTES UA (POCT) Negative Negative COLOR UA (POCT) Yellow CLARITY UA (POCT) Clear Results US THYROID/PARATHYROID (Acc#[id number] ) (Order [id number]) Patient Info Patient Name Sex RostetterKatelynn ([id number]) Female 1950 08/27/2024 3:40 PM - Radiology, [place] In Impression IMPRESSION: 1.2 cm right isthmus nodule which is not significantly changed from 08/05/2021. This technically meets criteria for FNA, correlate with previous biopsy if performed. TI-RADS Category: TR5 ACR Recommendation: TI-RADS 5 nodule. FNA is advised. ACR recommendations are strictly based on the size and imaging appearance at the time of the exam and do not consider stability or previous biopsy results. Crystal Slicer: PSCB Transcribe Date/Time: Aug 27 2024 3:35P Dictated by : SONJA AZEVEDO MD This examination was interpreted and the report reviewed and electronically signed by: SONJA AZEVEDO MD on Aug 27 2024 3:38PM EST Results-Findings * * *Final Report* * * DATE OF EXAM: Aug 25 2024 11:39AM [facility] 1048 - US THYROID/PARATHYROID / PROCEDURE REASON: Thyroid nodule * * * * Physician Interpretation * * * * EXAMINATION: THYROID ULTRASOUND CLINICAL HISTORY: Thyroid nodule TECHNIQUE: Sonography and Doppler imaging of the thyroid was performed. Images were obtained and stored in a permanent archive. MQ: UST_1 COMPARISON: Thyroid ultrasound 08/05/2021. RESULT: Right Lobe: 4.2 x 1.6 x 2.0 cm; homogeneous echogenicity, expected vascular flow. Left Lobe: 3.8 x 1.3 x 1.3 cm; homogeneous echogenicity, expected vascular flow. Isthmus: 0.4 cm The most suspicious thyroid nodule(s) (up to four) as below: NODULE 1: Location: Right isthmus Size: 1.2 x 1.1 x 0.6 cm, previously measuring 1.3 x 1.0 x 0.5 cm Characteristics: Composition: Solid or almost completely solid, 2 points Echogenicity: Hypoechoic, 2 points Shape: [id number], 0 points Margin: Smooth, 0 points Echogenic foci (add points for all that apply): Punctate echogenic foci, 3 points Internal vascularity: present Interval growth: Stable TI-RADS Category: TR5 ACR Recommendation: TI-RADS 5 nodule. FNA is advised. Assessment and Plan 1. Right flank pain (R10.9) Onset after pre-surgery urinalysis on April 14. Pain localized to the right flank, exacerbated by certain movements, no associated hematuria, dysuria, or urinary frequency. No history of kidney stones. Physical examination reveals no tenderness on palpation or percussion of the flank. Differential diagnosis includes musculoskeletal pain and renal calculi. - Ordered urinalysis to evaluate for hematuria. - If urinalysis shows blood, will order CT scan of the kidneys to rule out renal calculi. - If urinalysis is negative for blood, will consider musculoskeletal etiology and recommend gentle stretching exercises. - Advised continuation of Tylenol for pain management; avoid ibuprofen due to Xarelto use. UA was neg for infection or blood 2. Lyme disease (A69.20) Completed doxycycline therapy last week. Initial presentation included erythema migrans rash, now resolved. No further serological testing performed as treatment course was completed. 3. Tinea corporis (B35.4) Fungal rash on bilateral buttocks, initially suspected to be ringworm. Significant improvement noted with current treatment. - Continue ketoconazole 2% cream application BID for an additional 10 days. 4. Pharyngoesophageal dysphagia (R13.14) New onset dysphagia, primarily with pills, noticed at the end of doxycycline treatment. No improvement since discontinuation of doxycycline. No associated heartburn or nausea. History of esophageal hematoma post-cardiac ablation in 2017, likely reabsorbed. Differential diagnosis includes esophageal stricture or scar tissue. - Ordered swallowing study at [facility] to evaluate for esophageal stricture or other abnormalities. 5. Rib pain on right side (R07.81) Pain localized to the right rib area, no history of recent trauma or falls. Differential diagnosis includes rib fracture, especially given history of osteopenia. - Ordered X-ray of the ribs to evaluate for possible fracture. F/u next routine. Recording using [employer] software for draft documentation of the visit was discussed with the patient/authorized sales representative business courses; all questions welcomed and answered. Patient/authorized sales representative business courses agreed to proceed documented in this encounter [facility] 04-28-2025 Note HNO ID: [id number] Author: CHOLO SORIANO MD Service: ? Author Type: Physician Type: Progress Notes Filed: 04/29/2025 12:35 Note Text: Chief Complaint Patient presents with: Follow Up HPI Katelynn Campuzano is a 75 year old female who presents here today for follow up on lyme. Patient was see 04/06/2025 in UC and dx with Acute Lyme disease and given doxycycline for treatment. Patient was then seen in [facility] ER on 04/10/2025 for Rash was given cream to apply to buttocks. She is here today to follow up. Katelynn Campuzano is a 75-year-old female with a history of Lyme disease, dysphagia, and osteopenia, presenting with multiple concerns including dysphagia, back pain, and a fungal rash. Katelynn reports new onset dysphagia, which began at the end of a course of doxycycline completed last for Lyme disease. She describes the sensation as if pills are getting stuck, more so than food, and notes that drinking fluids helps alleviate the feeling. She denies heartburn, epigastric burning, or frequent nausea. Katelynn has a history of dysphagia 10 years ago, which was managed with Prilosec or Nexium, but has not had issues since. She also mentions a hematoma in her throat on the left side following a cardiac ablation for atrial fibrillation in 2017, and wonders if scar tissue could be contributing to her current symptoms. She is not currently taking any acid-reducing medications. Katelynn also reports back pain, which she describes as a new kidney thing that is painful at night and with certain movements, such as twisting during exercise. The pain is located in the back and does not radiate. She denies dysuria, hematuria, urinary frequency, or urgency. Katelynn has no history of nephrolithiasis, but believes she may be susceptible due to calcium ideas and stuff. She had a urinalysis on April 14 as part of her pre-surgery check-in for a wellness visit. Additionally, Katelynn has a fungal rash on her buttocks, for which she has been applying ketoconazole 2% cream BID for the past 10 days. The rash has improved but is still present. She also reports a bullseye rash on her upper body, which was diagnosed as Lyme disease without a blood test. She completed a course of doxycycline for this last week. Katelynn has a history of osteopenia and is due for a thyroid ultrasound in August for a thyroid nodule. She is currently taking Xarelto and Tylenol, and avoids ibuprofen. She canceled a scheduled shoulder surgery due to her current health concerns. My chart note 04/25/2025 my concern is if it?s connected to Lyme or doxeycycline. Two things: 1.Having a little trouble feeling like I can?t get pills swallowed for one thing. 2.The second thing is pain in right kidney area. *Started at end of doxy last *stabbing Pain mostly in back but started under my ribs near the site of Lyme rash. Most pain when flat in bed. No pain in recliner. Day is better than night. *Drinking water, taking Tylenol. *I believe I have a cyst on that kidney. Also thinking maybe a stone..,really wondering about the Lyme disease. Probably need an appointment for this now? Also would I need a blood test to check on Lyme? Two weeks of doxycycline Ended April 20. Sorry everything seems to be happening at once! A little guidance My chart note 04/19/2025 es the bullseye rash has faded. Almost done with doxycycline. The second issue was red streaks on my rear 3 days after the Lyme diagnosis and I worried about MRSA so went to ER. Pain in my hip joint also flared. That area was thought to be ringworm (?)and is improving with cream. I?m fine just didn?t think it was right for surgery! Past medical history, appointments, medications, allergies reviewed. Previous Medical History PAST MEDICAL HISTORY Diagnosis Date Acquired hypothyroidism 07/16/2016 Continue home Levothyroxine dose. Advance directive discussed with patient 04/11/2022 Discussed: 03/2022 Bilateral renal cysts 11/26/2021 US 10/2021 Calcaneal spur 11/01/2007 COVID-19 virus infection 09/19/2022 09/18/2022 Diaphragmatic hernia without mention of obstruction or gangrene Encounter for gynecological examination 04/03/2021 Seeing UPHOLSTERY MECHANIC Essential hypertension 09/24/2010 On Atenolol and HCTZ GERD without esophagitis Gilbert syndrome 11/13/2021 Hip arthritis 07/23/2009 History of cardiac radiofrequency ablation History of COVID-19 09/19/2022 09/18/2022 Hyperlipidemia, mixed 10/04/2021 Hyperuricemia 06/06/[address] 04/11/2022 DPA: Sherman () Low serum vitamin B12 04/08/2021 Lumbar compression fracture (HCC) 04/15/2017 Lumbar degenerative disc disease 04/15/2017 Lyme disease Medicare annual wellness visit, subsequent 04/03/2021 Last Done: 04/03/[address] lung nodules on CT 08/24/2018 Obesity, Class II, BMI 35-39.9 07/03/2016 Obstructive sleep apnea syndrome 06/24/2017 On CPAP at home. 7 cm pressure Orop (more content not included)... [facility] 04-11-2025 Note HNO ID: [id number] Author: LUIS ALBERTO SOMMERS LPN Service: ? Author Type: LICENSED NURSE Type: Progress Notes Filed: 04/11/2025 08:30 Note Text: Scan on 04/10/2025 3:48 PM by ProviderAspen PA-C: Consultation - Emergency Medicine [facility] 04-11-2025 History of Present illness Narrative Scan on 04/10/2025 3:48 PM by ProviderAspen PA-C: Consultation - Emergency Medicine documented in this encounter [facility] 04-06-2025 Note HNO ID: [id number] Author: STARLA SEGURA APRN.DEBURRER MACHINE Service: ? Author Type: Nurse Practitioner Type: Progress Notes Filed: 04/06/2025 08:17 Note Text: [facility] Subjective Katelynn Campuzano is a 75 year old female. Patient presents with: Trauma: R upper abd redness, bullseye area around same, area has increased in size, increase in aches and pains x 1 week Trauma Associated symptoms include myalgias and a rash. Pertinent negatives include no chills, fatigue, fever, headaches, joint swelling, numbness or weakness. Patient is a 75-year-old female presents today with a right upper pole stye on her torso. She does have a cabin that she stated that she is not sure if she got a tick bite or not. She states she did have multiple bug bites but was unsure if it was a tick or not. She has had myalgia over the last week but does have a chronic history of osteopenia versus arthritis. Denies any fevers, nausea, vomiting, or abdominal pain. Review of Systems Constitutional: Negative for chills, fatigue and fever. Musculoskeletal: Positive for myalgias. Negative for joint swelling. Skin: Positive for rash. Neurological: Negative for dizziness, tremors, seizures, weakness, numbness and headaches. Objective BP 135/62 Pulse 61 Temp 36.3 ?C (97.4 ?F) Resp 20 Wt 117 kg (257 lb 15 oz) SpO2 97% BMI 39.22 kg/m? PAST MEDICAL HISTORY Diagnosis Date Acquired hypothyroidism 07/16/2016 Continue home Levothyroxine dose. 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 - discussed with the ENT team, r Osteopenia Paroxysmal atrial fibrillation (HCC) Personal history of colonic polyps Colon polyps Pulmonary hypertension (HCC) 05/06/2024 Seeing Pulm S/P ablation of atrial fibrillation 06/24/2017 Date of procedure 06/23/17. Indication: persistent atrial fibrillation. - restart anticoagulation on Thursday06/29/2017 SEC HYPERPARATHYROID, NON-RENAL 09/02/2005 Situational depression 06/07/2014 Skin cancer of nose 10/21/2023 basal cell Skin cancer screening 05/06/[address] Granda Tuberculin test reaction Unspecified hemorrhoids without mention [...] CATH,PERCUTANEOUS LIG/TRNSXJ FLP TUBE ABDL/VAG APPR UNI/BI MOHS HEAD/NECK STAGE 1 <=5 10/21/2023 Nose PAST SURGICAL HISTORY OF cataracts bilateral PAST SURGICAL HISTORY OF 06/23/2017 heart ablation PAST SURGICAL HISTORY OF 08/17/2018 heart ablation VAGINAL HYSTERECTOMY UTERUS 250 GM/< 1992 Hysterectomy, vaginal [fibroids and bleeding[[ ALLERGIES Sulfa (Sulfonamide Antibiotics) and Penicillins MEDICATIONS allopurinol (ZYLOPRIM) 300 mg tablet Take 1 tablet by mouth two times a day. hydroCHLOROthiazide 25 mg tablet Take 1 tablet by mouth once daily. levothyroxine (SYNTHROID) 25 mcg tablet Take 1 tablet by mout (more content not included)... [facility] 04-06-2025 History of Present illness Narrative Images from the original note were not included. [facility] Subjective Katelynn Campuzano is a 75 year old female. Patient presents with: Trauma: R upper abd redness, bullseye area around same, area has increased in size, increase in aches and pains x 1 week Trauma Associated symptoms include myalgias and a rash. Pertinent negatives include no chills, fatigue, fever, headaches, joint swelling, numbness or weakness. Patient is a 75-year-old female presents today with a right upper pole stye on her torso. She does have a cabin that she stated that she is not sure if she got a tick bite or not. She states she did have multiple bug bites but was unsure if it was a tick or not. She has had myalgia over the last week but does have a chronic history of osteopenia versus arthritis. Denies any fevers, nausea, vomiting, or abdominal pain. Review of Systems Constitutional: Negative for chills, fatigue and fever. Musculoskeletal: Positive for myalgias. Negative for joint swelling. Skin: Positive for rash. Neurological: Negative for dizziness, tremors, seizures, weakness, numbness and headaches. Objective BP 135/62 Pulse 61 Temp 36.3 C (97.4 F) Resp 20 Wt 117 kg (257 lb 15 oz) SpO2 97% BMI 39.22 kg/m PAST MEDICAL HISTORY Diagnosis Date Acquired hypothyroidism 07/16/2016 Continue home Levothyroxine dose. 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 - discussed with the ENT team, r Osteopenia Paroxysmal atrial fibrillation (HCC) Personal history of colonic polyps Colon polyps Pulmonary hypertension (HCC) 05/06/2024 Seeing Pulm S/P ablation of atrial fibrillation 06/24/2017 Date of procedure 06/23/17. Indication: persistent atrial fibrillation. - restart anticoagulation on Thursday06/29/2017 SEC HYPERPARATHYROID, NON-RENAL 09/02/2005 Situational depression 06/07/2014 Skin cancer of nose 10/21/2023 basal cell Skin cancer screening 05/06/[address] Granda Tuberculin test reaction Unspecified hemorrhoids without mention [...] CATH,PERCUTANEOUS LIG/TRNSXJ FLP TUBE ABDL/VAG APPR UNI/BI MOHS HEAD/NECK STAGE 1 <=5 10/21/2023 Nose PAST SURGICAL HISTORY OF cataracts bilateral PAST SURGICAL HISTORY OF 06/23/2017 heart ablation PAST SURGICAL HISTORY OF 08/17/2018 heart ablation VAGINAL HYSTERECTOMY UTERUS 250 GM/< 1992 Hysterectomy, vaginal [fibroids and bleeding[[ ALLERGIES Sulfa (Sulfonamide Antibiotics) and Penicillins MEDICATIONS allopurinol (ZYLOPRIM) 300 mg tablet Take 1 tablet by mouth two times a day. hydroCHLOROthiazide 25 mg tablet Take 1 tablet by mouth once daily. levothyroxine (SYNTHROID) 25 mcg tablet Take 1 tablet by mouth daily before breakfast. WALKER ROLLATOR SEAT WITH 6 WHEELS - RED R26.89 and R29.6 flecainide (TAMBOCOR) 100 mg tablet TAKE 1 TABLET BY MOUTH EVERY 12 HOURS (DOSE INCREASE) cyanocobalamin (VITAMIN B-12) 1,000 mcg tab Take [...] 12.5 mg by mouth every 12 hours. doxycycline (VIBRA-TABS) 100 mg tablet Take 1 tablet by mouth two times a day for 14 days. FAMILY HISTORY Problem Relation Age of Onset Diabetes Mother Thyroid Mother other (Other) Mother colon polyps - not CA Heart Father other (Other) Brother colon polyps- not CA Cancer Daughter 4 neuroblastoma Social History Tobacco Use Smoking status: Never Smokeless tobacco: Never Vaping Use Vaping status: Never Used Substance Use Topics Alcohol use: Never Drug use: No Physical Exam Vitals and nursing note reviewed. Constitutional: Appearance: Normal appearance. She is normal weight. Cardiovascular: Rate and Rhythm: Normal rate and regular rhythm. Pulses: Normal pulses. Heart sounds: Normal heart sounds. No murmur heard. Pulmonary: Effort: Pulmonary effort is normal. Breath sounds: Normal breath sounds. Musculoskeletal: Cervical back: Normal range of motion. Lymphadenopathy: Cervical: No cervical adenopathy. Skin: Comments: Non indurated 5 cm erythema migrans on right upper torso Neurological: Mental Status: She is alert. {ASSESSMENT/PLAN: 1. Acute Lyme disease with erythema migrans lesion 5 cm or greater in diameter - ICD9: 088.81, ICD10: A69.20 - Treated for lyme to disease based on presentation. - DOXYCYCLINE HYCLATE 100 MG TABLET - Follow up with PCP Starla Segura APRN.DEBURRER MACHINE MDM patient is well-appearing nontoxic in no acute distress 75-year-old female. Will treat her for acute Lyme disease with erythema migrans today with a course of doxycycline. Up-to-date literature suggest doxycycline for 10 days. Will put her on 14 days just to make sure compliance is complete. No concerns of acute abscess, cellulitis, no neurovascular deficits or neurological symptoms today. Patient is having surgery on May 01. Did discuss with her that should not inhibit her orthopedic surgery. Follow up with primary care. Patient verbalized understanding and in agreement with plan. documented in this encounter [facility] 04-03-2025 Note HNO ID: [id number] Author: SHIRA PHELAN MA Service: ? Author Type: Egg Candler Type: Progress Notes Filed: 04/03/2025 12:17 Note Text: POPULATION HEALTH NAVIGATION OUTREACH Action/FYI Update appointment note HCC closure Topic Due (Y or N) Comments Medicare Wellness Y PCP Follow up Colorectal Cancer Screening Controlling Blood Pressure A1C HCC Y Flu Vaccine Care Everywhere Reviewed MyChart Activation Updated Appointment Note Y Reason for Outreach Care Gap/HCC or Scheduling Wellness Visits Care Gaps due: Medicare Annual Wellness Visit Patient Contacted: Unable or unnecessary to reach patient: HCC related Patient already scheduled Updated appointment notes Navigation Signature: Shira Phelan MA April 03, 2025 12:15 PM [facility] 04-03-2025 History of Present illness Narrative POPULATION HEALTH NAVIGATION OUTREACH Action/FYI Update appointment note HCC closure Topic Due (Y or N) Comments Medicare Wellness Y PCP Follow up Colorectal Cancer Screening Controlling Blood Pressure A1C HCC Y Flu Vaccine Care Everywhere Reviewed MyChart Activation Updated Appointment Note Y Reason for Outreach Care Gap/HCC or Scheduling Wellness Visits Care Gaps due: Medicare Annual Wellness Visit Patient Contacted: Unable or unnecessary to reach patient: HCC related Patient already scheduled Updated appointment notes Navigation Signature: Shira Phelan MA April 03, 2025 12:15 PM documented in this encounter [facility] 04-03-2025 Note Patient Outreach (NE TNAV) KATELYNN CAMPUZANO ([id number]) 1950 F Date Time Provider Department 04/03/25 SHIRA PHELAN During your visit today, we recorded the following information about you: Shira Phelan MA 04/03/2025 12:17 PM Signed POPULATION HEALTH NAVIGATION OUTREACH Action/FYI Update appointment note HCC closure Topic Due (Y or N) Comments Medicare Wellness Y PCP Follow up Colorectal Cancer Screening Controlling Blood Pressure A1C HCC Y Flu Vaccine Care Everywhere Reviewed MyChart Activation Updated Appointment Note Y Reason for Outreach Care Gap/HCC or Scheduling Wellness Visits Care Gaps due: Medicare Annual Wellness Visit Patient Contacted: Unable or unnecessary to reach patient: HCC related Patient already scheduled Updated appointment notes Navigation Signature: Shira Phelan MA April 03, 2025 12:15 PM Allergies As of Date: 04/03/2025 Noted Allergy Reaction SULFA (SULFONAMIDE ANTIBIOTICS) 09/02/2005 4 - Hives PENICILLINS 09/02/2005 16 - Unknown Date Reviewed: 01/20/2025 Reviewed by: Cholo Soriano MD - Fully Assessed Reason for Visit: Population Health Navigation Outreach [3910] Cmt: ACO [facility] Prescriptions as of 04/03/2025 - allopurinol (ZYLOPRIM) 300 mg tablet Take 1 tablet by mouth two times a day. - hydroCHLOROthiazide 25 mg tablet Take 1 tablet by mouth once daily. - levothyroxine (SYNTHROID) 25 mcg tablet Take 1 tablet by mouth daily before breakfast. - WALKER ROLLATOR SEAT WITH 6 WHEELS - RED R26.89 and R29.6 - flecainide (TAMBOCOR) 100 mg tablet TAKE 1 TABLET BY MOUTH EVERY 12 HOURS (DOSE INCREASE) - cyanocobalamin (VITAMIN B-12) 1,000 mcg tab Take 1 tablet by mouth once daily. - Cholecalciferol, Vitamin D3, (VITAMIN D-3) 50 mcg (2,000 unit) cap Take 1 capsule by mouth once daily. - XARELTO 20 mg tablet TAKE 1 TABLET BY MOUTH EVERY DAY WITH DINNER - lisinopril (ZESTRIL, PRINIVIL) 5 mg tablet Take 5 mg by mouth once daily. - acetaminophen (TYLENOL) 500 mg tablet Take 1,000 mg by mouth at bedtime as needed. - metoprolol tartrate, short acting, (LOPRESSOR) 12.5 mg tab Take 12.5 mg by mouth every 12 hours. Problem List As Of Date 04/03/2025 Noted Resolved Secondary hyperparathyroidism, non-renal (HCC) *09/02/2005 01/07/2018 Abdominal pain, left upper quadrant [R10.12] 07/17/2016 Personal history of colonic polyps [Z86.0100] GERD without esophagitis [K21.9] TUBERCULIN TEST REACTION NO TBC [795.5] HYPERPARATHYROIDISM NOS [E21.3] 12/22/2006 Arthritis [M19.90] 02/11/2007 Hip arthritis [M16.10] 07/23/2009 Essential hypertension [I10] 09/24/2010 Diaphragmatic hernia [K44.9] 05/20/2011 Hyperuricemia [E79.0] 06/06/2013 Vitamin D deficiency [E55.9] 08/17/2013 01/07/2018 Situational depression [F43.21] 06/07/2014 Atrial fibrillation, persistent (HCC) [I48.19] 09/04/2015 12/27/2018 Chronic anticoagulation [Z79.01] 03/25/2016 Paronychia of finger [L03.019] 05/14/2016 12/17/2016 Obesity, Class II, BMI 35-39.9 [E66.812] 07/03/2016 Acquired hypothyroidism [E03.9] 07/16/2016 Lumbar degenerative disc disease [M51.369] 04/15/2017 Lumbar compression fracture (HCC) [S32.000A] 04/15/2017 04/11/2022 S/P ablation of atrial fibrillation [Z98.890, Z*06/24/2017 Obstructive sleep apnea syndrome [G47.33] 06/24/2017 A-fib (HCC) [I48.91] 06/24/2017 07/06/2017 Sciatica of right side [M54.31] 08/11/2017 01/07/2018 Paroxysmal atrial fibrillation (HCC) [I48.0] 07/27/[address] on [address] [R91.8] 08/24/2018 IRB 18-444: [facility] Using Eddie*12/02/2018 05/13/2019 Osteopenia [M85.80] Encounter for gynecological examination [Z01.41*04/03/2021 Hyperparathyroidism (HCC) [E21.3] 04/03/2021 Medicare annual wellness visit, subsequent [Z00*04/03/2021 Medication management [Z79.899] 04/03/2021 Low serum vitamin B12 [E53.8] 04/08/2021 Thyroid nodule [E04.1] 10/04/2021 Hyperlipidemia, mixed [E78.2] 10/04/2021 Gilbert syndrome [E80.4] 11/13/2021 Bilateral renal cysts [N28.1] 11/26/[address] [Z78.9] 04/11/2022 Advance directive discussed with patient [Z71.8*04/11/2022 History of COVID-19 [Z86.16] 09/19/2022 Balance problems [R26.89] 02/26/2024 Multiple falls [R29.6] 02/26/2024 Pulmonary hypertension (HCC) [I27.20] 05/06/2024 Skin cancer screening [Z12.83] 05/06/2024 Encounter Status:Closed by SHIRA PHELAN on 04/03/25 [facility] 01-20-2025 Instructions Cholo Soriano MD - 01/20/2025 11:02 AM EST You want to get 500-750 mg of calcium twice a day. Ont the Vit D3 2,000 international unit(s) 's once a day documented in this encounter [facility] 01-20-2025 Note HNO ID: [id number] Author: CHOLO SORIANO MD Service: ? Author Type: Physician Type: Progress Notes Filed: 01/20/2025 11:09 Note Text: Chief Complaint Patient presents with: Follow Up HPI Katelynn Campuzano is a 74 year old female who presents here today for follow up. Patient recently had a DXA scan and would like to compare the recent one with her previous one. Past medical history, appointments, medications, allergies reviewed. Previous Medical History PAST MEDICAL HISTORY Diagnosis Date Acquired hypothyroidism 07/16/2016 Continue home Levothyroxine dose. 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 - discussed with the ENT team, r Osteopenia Paroxysmal atrial fibrillation (HCC) Personal history of colonic polyps Colon polyps Pulmonary hypertension (HCC) 05/06/2024 Seeing Pulm S/P ablation of atrial fibrillation 06/24/2017 Date of procedure 06/23/17. Indication: persistent atrial fibrillation. - restart anticoagulation on Thursday06/29/2017 SEC HYPERPARATHYROID, NON-RENAL 09/02/2005 Situational depression 06/07/2014 Skin cancer of nose 10/21/2023 basal cell Skin cancer screening 05/06/[address] Granda Tuberculin test reaction Unspecified hemorrhoids without mention [...] CATH,PERCUTANEOUS LIG/TRNSXJ FLP TUBE ABDL/VAG APPR UNI/BI MOHS HEAD/NECK STAGE 1 <=5 10/21/2023 Nose PAST SURGICAL HISTORY OF cataracts bilateral PAST [...] mg tablet Take 1 tablet by mouth two times a day. hydroCHLOROthiazide 25 mg tablet Take 1 tablet by mouth once daily. levothyroxine (SYNTHROID) 25 mcg tablet Take 1 tablet by mouth daily before breakfast. WALKER ROLLATOR SEAT WITH 6 WHEELS - RED R26.89 and R29.6 flecainide (TAMBOCOR) 100 mg tablet TAKE 1 TABLET BY MOUTH EVERY 12 HOURS (DOSE INCREASE) cyanocobalamin (VITAMIN B-12) 1,000 mcg tab Take 1 tablet by mouth once daily. Cholecalciferol, Vitamin D3, (VITAMIN D-3) 50 mcg (2,000 unit) cap Take 1 capsule by mouth once daily. XARELTO 20 mg tablet TAKE 1 TABLET BY MOUTH EVERY DAY WITH DINNER lisinopril (ZESTRIL, PRINIVIL) 5 mg tablet Take 5 m (more content not included)... [facility] 01-20-2025 History of Present illness Narrative Chief Complaint Patient presents with: Follow Up HPI Katelynn Campuzano is a 74 year old female who presents here today for follow up. Patient recently had a DXA scan and would like to compare the recent one with her previous one. Past medical history, appointments, medications, allergies reviewed. Previous Medical History PAST MEDICAL HISTORY Diagnosis Date Acquired hypothyroidism 07/16/2016 Continue home Levothyroxine dose. 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 - discussed with the ENT team, r Osteopenia Paroxysmal atrial fibrillation (HCC) Personal history of colonic polyps Colon polyps Pulmonary hypertension (HCC) 05/06/2024 Seeing Pulm S/P ablation of atrial fibrillation 06/24/2017 Date of procedure 06/23/17. Indication: persistent atrial fibrillation. - restart anticoagulation on Thursday06/29/2017 SEC HYPERPARATHYROID, NON-RENAL 09/02/2005 Situational depression 06/07/2014 Skin cancer of nose 10/21/2023 basal cell Skin cancer screening 05/06/[address] Granda Tuberculin test reaction Unspecified hemorrhoids without mention [...] CATH,PERCUTANEOUS LIG/TRNSXJ FLP TUBE ABDL/VAG APPR UNI/BI MOHS HEAD/NECK STAGE 1 <=5 10/21/2023 Nose PAST SURGICAL HISTORY OF cataracts bilateral PAST [...] mg tablet Take 1 tablet by mouth two times a day. hydroCHLOROthiazide 25 mg tablet Take 1 tablet by mouth once daily. levothyroxine (SYNTHROID) 25 mcg tablet Take 1 tablet by mouth daily before breakfast. WALKER ROLLATOR SEAT WITH 6 WHEELS - RED R26.89 and R29.6 flecainide (TAMBOCOR) 100 mg tablet TAKE 1 TABLET BY MOUTH EVERY 12 HOURS (DOSE INCREASE) cyanocobalamin (VITAMIN B-12) 1,000 mcg tab Take [...] 12.5 mg by mouth every 12 hours. benzonatate (TESSALON PERLE) 100 mg capsule Take 1 capsule by mouth three times a day as needed for cough. (Patient not taking: Reported on 01/20/2025) No current facility-administered medications on file prior to visit. Social History Social History Tobacco Use Smoking status: Never Smokeless tobacco: Never Vaping Use Vaping status: Never Used Substance Use Topics Alcohol use: Never Drug use: No Review of Symptoms REVIEW OF SYSTEMS Se HPI EXAM: BP 124/70 Pulse 72 Wt 114.8 kg (253 lb) BMI 38.47 kg/m General Appearance: Well appearing, alert, in no acute distress, well-hydrated, well nourished.. Health Maintenance List Anxiety Screening Never done Colorectal Cancer Screening due on 04/11/2024 Advance Directive Discussion due on 11/23/2024 Covid-19 Vaccine( season) due on 02/19/2025 Annual PCP Team Chronic Disease Visit due on 11/07/2025 BP Controlled (<130/80) due on 12/23/2025 Diabetes Screening due on 10/24/2027 Lipid Screening due on 10/24/2029 DTaP,Tdap,Td Vaccine(6 - Td or Tdap) due on 09/02/2032 Bone Density Screening Completed Influenza Vaccine Completed RSV Vaccine Completed Hepatitis C Screening Completed Shingrix Vaccine Completed Pneumococcal Vaccine: 50+ Completed Mammogram Screening Discontinued Data reviewed Results DXA-AXIAL SKELETON (Acc#[id number] ) (Order [id number]) Patient Info Patient Name Sex HomeroetterKatelynn ([id number]) Female 1950 01/10/2025 10:10 AM - Radiology, [place] In Component Results Component Performing Lab LOWEST T-SCORE (Final) CCRAD -1.1 Impression IMPRESSION: THE LOWEST T-SCORE IS -1.1 IN THE LEFT HIP 1) DIAGNOSIS (based on BMD alone): BORDERLINE OSTEOPENIA Caution: Medical conditions other than osteoporosis may cause low bone density, such as osteomalacia or renal osteodystrophy. Clinical correlation is necessary. 2) FRACTURE RISK ( ): 10-year absolute fracture risk: - major osteoporotic fracture = 14 % - hip fracture = 6.3 % - A diagnosis of Osteoporosis, a 10 year probability of hip fracture greater than or equal to 3% or a 10 year probability of any major osteoporosis-related fracture greater than or equal to 20% should be considered for treatment. - DXA scanner generated FRAX calculations may slightly differ from online FRAX calculations due to differences in software versions. - All recommendations and calculations are to be considered as guidelines and should not replace sound clinical judgement - Caution: Fracture risk may be increased independent of BMD in patients with corticosteroid use, age greater than 65 years, or a history of prior fragility fracture. RECOMMENDATIONS: Follow-up in 2 years or as clinically indicated. Patients that are taking corticosteroids, are transplant recipients or have hyperparathyroidism should have annual follow-up. Follow-up scans should always be done on the same machine for accurate comparison. FOR MORE INFORMATION ABOUT DIAGNOSIS AND TREATMENT: [facility]abolic Bone Disease:? www.ccf.org/arthritis/osteo National Osteoporosis Foundation:? www.nof.org International Society of Clinical Densitometry www.iscd.org Crystal Slicer: SEBAS Transcribe Date/Time: Jan 10 2025 9:58A Dictated by : NAN SHANKAR MD This examination was interpreted and the report reviewed and electronically signed by: NAN SHANKAR MD on Jan 10 2025 10:07AM EST Results-Findings * * *Final Report* * * DATE OF EXAM: Jan 09 2025 8:45AM [facility] [id number] - BD DXA - AXIAL SKELETON / PROCEDURE REASON: Osteopenia of left femoral neck * * * * Physician Interpretation * * * * EXAMINATION: DXA BONE DENSITOMETRY BD DXA - AXIAL SKELETON PATIENT DEMOGRAPHICS: Age: 74 years, Gender: Female SCANNER INFORMATION: DXA Model: [employer] [place] C [id number] Date Scanned: 01/09/2025 8:45 AM CLINICAL HISTORY: SCREENING Osteopenia of left femoral neck . RISK FACTORS FOR OSTEOPOROSIS AND ASSOCIATED FRACTURES REPORTED BY THIS PATIENT: Please refer to Bone Health Questionnaire in the EMR CURRENT THERAPY: Please refer to Bone Health Questionnaire in the EMR TECHNICAL LIMITATIONS: RESULTS: Lumbar spine ( ): 1.136 g/cm2, T-score 0.8, Z-score 3.3 Left Femoral Neck: 0.728 g/cm2, T-score -1.1, Z-score 1.0 Left Total Hip: 0.895 g/cm2, T-score -0.4, Z-score 1.4 No comparison data - the patient has not had a previous bone density in the [facility] or the previous bone density was performed on a different DXA machine (new, updated model or different location) within the [facility]. VERTEBRAL FRACTURE ASSESSMENT Not performed. TRABECULAR BONE ASSESSMENT TBS not performed: A/P ASSESSMENT/PLAN: 1. Osteopenia, unspecified location - ICD9: 733.90, ICD10: M85.80 - Reviewed the need for Calcium and Vitamin D supplements and weight bearing exercise as tolerated - reviewed her recent DXA compared to her last one in 2023 and discussed changes. Patient to keep future routine appt. Cholo Soriano MD documented in this encounter [facility] 01-10-2025 Telephone encounter Note Set up an appt so we can go over her recent study and the previous one. [facility] 01-10-2025 Miscellaneous Notes Set up an appt so we can go over her recent study and the previous one. Please see pt message. Do you want pt to have an appt to discuss? Please advise. Una Draper MA documented in this encounter [facility] 01-10-2025 Telephone encounter Note Please see pt message. Do you want pt to have an appt to discuss? Please advise. Una Draper MA [facility] 01-09-2025 History of Present illness Narrative Radiology Service Progress Note PATIENT NAME: Katelynn Campuzano DATE OF SERVICE: January 09, 2025 TIME: 9:05 AM PATIENT IDENTITY VERIFICATION COMPLETED USING TWO (2) IDENTIFIERS: Name and Date of confirmed by patient verbally. FALL SCREENING: Has the patient had 2 falls in the last year or 1 fall with injury or currently using an Ambulatory Assistive Device (Walker, Cane, Wheelchair, Crutches, etc.)? No PATIENT GENDER DATA: Assigned female at . status: : No status: NO. PATIENT RELEVANT IMPLANT DATA REVIEWED: Not Applicable PATIENT PRESENTS WITH AN IMPLANTABLE OR ATTACHED COMMERCIAL MAKEUP ARTIST: No RADIOLOGY DEPARTMENT: Mammography PERIPHERAL IV DATA: Not applicable SIGNED BY: Avery Troncoso January 09, 2025 9:05 AM documented in this encounter [facility] 01-09-2025 Note HNO ID: [id number] Author: ABHI DEAN Mammo Tech Service: ? Author Type: Technologist Type: Progress Notes Filed: 01/09/2025 09:05 Note Text: Radiology Service Progress Note PATIENT NAME: Katelynn Campuzano DATE OF SERVICE: January 09, 2025 TIME: 9:05 AM PATIENT IDENTITY VERIFICATION COMPLETED USING TWO (2) IDENTIFIERS: Name and Date of confirmed by patient verbally. FALL SCREENING: Has the patient had 2 falls in the last year or 1 fall with injury or currently using an Ambulatory Assistive Device (Walker, Cane, Wheelchair, Crutches, etc.)? No PATIENT GENDER DATA: Assigned female at . status: : No status: NO. PATIENT RELEVANT IMPLANT DATA REVIEWED: Not Applicable PATIENT PRESENTS WITH AN IMPLANTABLE OR ATTACHED COMMERCIAL MAKEUP ARTIST: No RADIOLOGY DEPARTMENT: Mammography PERIPHERAL IV DATA: Not applicable SIGNED BY: Avery Troncoso January 09, 2025 9:05 AM [facility] 01-09-2025 History of Present illness Narrative Radiology Service Progress Note PATIENT NAME: Katelynn Campuzano DATE OF SERVICE: January 09, 2025 TIME: 8:22 AM PATIENT IDENTITY VERIFICATION COMPLETED USING TWO (2) IDENTIFIERS: Name and Date of confirmed by patient verbally. FALL SCREENING: Has the patient had 2 falls in the last year or 1 fall with injury or currently using an Ambulatory Assistive Device (Walker, Cane, Wheelchair, Crutches, etc.)? No PATIENT GENDER DATA: Assigned female at . status: : No status: NO. PATIENT RELEVANT IMPLANT DATA REVIEWED: Not Applicable PATIENT PRESENTS WITH AN IMPLANTABLE OR ATTACHED COMMERCIAL MAKEUP ARTIST: No RADIOLOGY DEPARTMENT: Bone Density PERIPHERAL IV DATA: Not applicable SIGNED BY: RT Edna(R) January 09, 2025 8:22 AM documented in this encounter [facility] 01-09-2025 Note HNO ID: [id number] Author: PAULA FISHER RT(R) Service: ? Author Type: Technologist Type: Progress Notes Filed: 01/09/2025 08:32 Note Text: Radiology Service Progress Note PATIENT NAME: Katelynn Campuzano DATE OF SERVICE: January 09, 2025 TIME: 8:22 AM PATIENT IDENTITY VERIFICATION COMPLETED USING TWO (2) IDENTIFIERS: Name and Date of confirmed by patient verbally. FALL SCREENING: Has the patient had 2 falls in the last year or 1 fall with injury or currently using an Ambulatory Assistive Device (Walker, Cane, Wheelchair, Crutches, etc.)? No PATIENT GENDER DATA: Assigned female at . status: : No status: NO. PATIENT RELEVANT IMPLANT DATA REVIEWED: Not Applicable PATIENT PRESENTS WITH AN IMPLANTABLE OR ATTACHED COMMERCIAL MAKEUP ARTIST: No RADIOLOGY DEPARTMENT: Bone Density PERIPHERAL IV DATA: Not applicable SIGNED BY: RT Edna(R) January 09, 2025 8:22 AM [facility] 12-30-2024 Note HNO ID: [id number] Author: MURPHY OLMOS MD Service: ? Author Type: Physician Type: Progress Notes Filed: 01/02/2025 08:30 Note Text: PAIN EVALUATION 12/30/2024 1249 Pain Location: Shoulder-Left Description: Aching Frequency: Intermittent Comments: last L-shoulder CSI:09/09/24 Encounter Diagnosis ICD-10-CM 1. Glenohumeral arthritis, left M19.012 Katelynn Campuzano returns to follow-up on left shoulder glenohumeral arthritis. Pain has been worsening over the past few months. She is interested in discussing surgical management as injections have stopped working so well for her. She does request another injection today due to the need to schedule surgery further out into the spring. Focused examination of her left shoulder today demonstrates essentially unchanged ability to elevate and rotate from the shoulder with limited range of motion especially in elevation with weakness and Minesh testing indicating weakness of her rotator cuff insertion of supraspinatus. IMAGING: Radiographs of the left shoulder taken August 2024 once again reviewed today showing loss of joint space between the humeral head and the glenoid with inferior osteophyte formation on both the glenoid and humerus. There is eburnation and sclerosis of the superior humeral head but no significant loss of acromiohumeral distance which measures 12 mm. PLAN: Katelynn Campuzano presents today with worsening painful weakness of her left shoulder as a result of advancing glenohumeral joint osteoarthritis. The current condition represents a significant risk of loss of function of the extremity due to the worsening pain and diminished use of the arm at this time. Based on my evaluation today, I do not feel that nonsurgical interventions including physical therapy, activity modification, and medical management are likely to provide this patient with an acceptable level of improvement in functional use of the arm, nor significant pain relief. After thorough review of history, examination findings, and imaging, we discussed surgical intervention today which would be reverse total shoulder arthroplasty given her age and elevation weakness indicating incompetence of her rotator cuff. I described the procedure in detail as well as the expected healing time of 3-6 months and physical therapy regimen following surgery, likely for much of this time. Informed consent was discussed in detail and signed in the office today. Significant risks of surgery include general anesthesia, and those from surgery including infection, nerve injury, bleeding, procedure failure and possible need for repeat procedure. No guarantees as to the outcome of surgery were given or implied. Surgery will be scheduled for the next available date. In addition to the comprehensive evaluation, assessment and plan outlined above, and as a distinct and separate element to the visit today, I have made the determination to proceed with an injection to aid in the management of the patient's condition. We discussed the risks, benefits, alternatives and expected outcomes of this injection in detail, and the patient agreed to proceed. The procedure was performed as detailed below. Large Joint Arthro/Inj: L shoulder joint 12/30/2024 1:30 PM The procedure site was prepped in the usual sterile fashion. Site: L shoulder joint Medications: 80 mg triamcinolone acetonide 40 mg/mL Anesthetics: 4 mL bupivacaine (PF) 0.25 % (2.5 mg/mL) Outcome: Tolerated well, no immediate complications Post-injection instructions were reviewed with the patient and the patient voiced understanding of these instructions. This condition represents a worsening chronic problem with her left shoulder now requiring surgery Risk from testing and treatment is expected to be moderate, with arthrocentesis offered today as well as elective major surgery scheduled for later in the year. Medical Decision Making: Problems: Moderate: 1+ chronic illnesses with change Risk: Moderate: Decision on elective major surgery w/o risk factors Medical Decision Making Level: 4 - Moderate Murphy Olmos MD Shoulder AND Elbow Surgeon Department of Orthopaedic Surgery [facility] 12-30-2024 History of Present illness Narrative Associated Order(s): Large Joint Arthro/Inj: L shoulder joint Post-Procedure Diagnose(s): Glenohumeral arthritis, left PAIN EVALUATION 12/30/2024 1249 Pain Location: Shoulder-Left Description: Aching Frequency: Intermittent Comments: last L-shoulder CSI:09/09/24 Encounter Diagnosis ICD-10-CM 1. Glenohumeral arthritis, left M19.012 Katelynn Campuzano returns to follow-up on left shoulder glenohumeral arthritis. Pain has been worsening over the past few months. She is interested in discussing surgical management as injections have stopped working so well for her. She does request another injection today due to the need to schedule surgery further out into the spring. Focused examination of her left shoulder today demonstrates essentially unchanged ability to elevate and rotate from the shoulder with limited range of motion especially in elevation with weakness and Minesh testing indicating weakness of her rotator cuff insertion of supraspinatus. IMAGING: Radiographs of the left shoulder taken August 2024 once again reviewed today showing loss of joint space between the humeral head and the glenoid with inferior osteophyte formation on both the glenoid and humerus. There is eburnation and sclerosis of the superior humeral head but no significant loss of acromiohumeral distance which measures 12 mm. PLAN: Katelynn Campuzano presents today with worsening painful weakness of her left shoulder as a result of advancing glenohumeral joint osteoarthritis. The current condition represents a significant risk of loss of function of the extremity due to the worsening pain and diminished use of the arm at this time. Based on my evaluation today, I do not feel that nonsurgical interventions including physical therapy, activity modification, and medical management are likely to provide this patient with an acceptable level of improvement in functional use of the arm, nor significant pain relief. After thorough review of history, examination findings, and imaging, we discussed surgical intervention today which would be reverse total shoulder arthroplasty given her age and elevation weakness indicating incompetence of her rotator cuff. I described the procedure in detail as well as the expected healing time of 3-6 months and physical therapy regimen following surgery, likely for much of this time. Informed consent was discussed in detail and signed in the office today. Significant risks of surgery include general anesthesia, and those from surgery including infection, nerve injury, bleeding, procedure failure and possible need for repeat procedure. No guarantees as to the outcome of surgery were given or implied. Surgery will be scheduled for the next available date. In addition to the comprehensive evaluation, assessment and plan outlined above, and as a distinct and separate element to the visit today, I have made the determination to proceed with an injection to aid in the management of the patient's condition. We discussed the risks, benefits, alternatives and expected outcomes of this injection in detail, and the patient agreed to proceed. The procedure was performed as detailed below. Large Joint Arthro/Inj: L shoulder joint 12/30/2024 1:30 PM The procedure site was prepped in the usual sterile fashion. Site: L shoulder joint Medications: 80 mg triamcinolone acetonide 40 mg/mL Anesthetics: 4 mL bupivacaine (PF) 0.25 % (2.5 mg/mL) Outcome: Tolerated well, no immediate complications Post-injection instructions were reviewed with the patient and the patient voiced understanding of these instructions. This condition represents a worsening chronic problem with her left shoulder now requiring surgery Risk from testing and treatment is expected to be moderate, with arthrocentesis offered today as well as elective major surgery scheduled for later in the year. Medical Decision Making: Problems: Moderate: 1+ chronic illnesses with change Risk: Moderate: Decision on elective major surgery w/o risk factors Medical Decision Making Level: 4 - Moderate Murphy Olmos MD Shoulder & Elbow Surgeon Department of Orthopaedic Surgery [facility] documented in this encounter [facility] 12-23-2024 Note HNO ID: [id number] Author: ALTA MOSER APRN.DEBURRER MACHINE Service: ? Author Type: Nurse Practitioner Type: Progress Notes Filed: 12/23/2024 14:17 Note Text: This note was created using [employer]. Subjective Katelynn Campuzano is a 74 year old female. 74 year old female with With PMH AF, on Fleicanide. On chronic AC with Rivaroxaban. - Primary HTN on HCTZ and Atenolol. - Acquired hypothyroidism on Levothyroxine. - ROZ on CPAP - Gout on Allopurinol. 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 No manager language was used. Flu Like Symptoms This is a new problem. The current episode started yesterday. The problem occurs constantly. The problem has been unchanged. Associated symptoms include chills, congestion, coughing, fatigue, headaches and swollen glands. Pertinent negatives include no abdominal pain, anorexia, arthralgias, change in bowel habit, chest pain, diaphoresis, fever, joint swelling, myalgias, nausea, neck pain, numbness, rash, sore throat, urinary symptoms, vertigo, visual change, vomiting or weakness. Nothing aggravates the symptoms. She has tried nothing for the symptoms. The treatment provided no relief. PAST MEDICAL HISTORY Diagnosis Date Acquired hypothyroidism 07/16/2016 Continue home Levothyroxine dose. 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 - discussed with the ENT team, r Osteopenia Paroxysmal atrial fibrillation (HCC) Personal history of colonic polyps Colon polyps Pulmonary hypertension (HCC) 05/06/2024 Seeing Pulm S/P ablation of atrial fibrillation 06/24/2017 Date of procedure 06/23/17. Indication: persistent atrial fibrillation. - restart anticoagulation on Thursday06/29/2017 SEC HYPERPARATHYROID, NON-RENAL 09/02/2005 Situational depression 06/07/2014 Skin cancer of nose 10/21/2023 basal cell Skin cancer screening 05/06/[address] Granda Tuberculin test reaction Unspecified hemorrhoids without mention [...] CATH,PERCUTANEOUS LIG/TRNSXJ FLP TUBE ABDL/VAG APPR UNI/BI MOHS HEAD/NECK STAGE 1 <=5 10/21/2023 Nose PAST SURGICAL HISTORY OF cataracts bilateral PAST SURGICAL HISTORY OF 06/23/2017 heart ablation PAST SURGICAL HISTORY OF 08/17/2018 heart ablation VAGINAL HYSTERECTOMY UTERUS 250 GM/< 1992 Hysterectomy, vaginal [fibroids and bleeding[[ ALLERGIES Sulfa (Sulfonamide Antibiotics) and Penicillins MEDICATIONS [START ON 12/24/2024] oseltamivir (TAMIFLU) 75 mg capsule Take 1 capsule by mouth two times a day for 5 days. Patie (more content not included)... [facility] 12-23-2024 History of Present illness Narrative This note was created using NoteWriter. Subjective Katelynn Campuzano is a 74 year old female. 74 year old female with With PMH AF, on Fleicanide. On chronic AC with Rivaroxaban. - Primary HTN on HCTZ and Atenolol. - Acquired hypothyroidism on Levothyroxine. - ROZ on CPAP - Gout on Allopurinol. 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 No manager language was used. Flu Like Symptoms This is a new problem. The current episode started yesterday. The problem occurs constantly. The problem has been unchanged. Associated symptoms include chills, congestion, coughing, fatigue, headaches and swollen glands. Pertinent negatives include no abdominal pain, anorexia, arthralgias, change in bowel habit, chest pain, diaphoresis, fever, joint swelling, myalgias, nausea, neck pain, numbness, rash, sore throat, urinary symptoms, vertigo, visual change, vomiting or weakness. Nothing aggravates the symptoms. She has tried nothing for the symptoms. The treatment provided no relief. PAST MEDICAL HISTORY Diagnosis Date Acquired hypothyroidism 07/16/2016 Continue home Levothyroxine dose. 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 - discussed with the ENT team, r Osteopenia Paroxysmal atrial fibrillation (HCC) Personal history of colonic polyps Colon polyps Pulmonary hypertension (HCC) 05/06/2024 Seeing Pulm S/P ablation of atrial fibrillation 06/24/2017 Date of procedure 06/23/17. Indication: persistent atrial fibrillation. - restart anticoagulation on Thursday06/29/2017 SEC HYPERPARATHYROID, NON-RENAL 09/02/2005 Situational depression 06/07/2014 Skin cancer of nose 10/21/2023 basal cell Skin cancer screening 05/06/[address] Granda Tuberculin test reaction Unspecified hemorrhoids without mention [...] CATH,PERCUTANEOUS LIG/TRNSXJ FLP TUBE ABDL/VAG APPR UNI/BI MOHS HEAD/NECK STAGE 1 <=5 10/21/2023 Nose PAST SURGICAL HISTORY OF cataracts bilateral PAST SURGICAL HISTORY OF 06/23/2017 heart ablation PAST SURGICAL HISTORY OF 08/17/2018 heart ablation VAGINAL HYSTERECTOMY UTERUS 250 GM/< 1992 Hysterectomy, vaginal [fibroids and bleeding[[ ALLERGIES Sulfa (Sulfonamide Antibiotics) and Penicillins MEDICATIONS [START ON 12/24/2024] oseltamivir (TAMIFLU) 75 mg capsule Take 1 capsule by mouth two times a day for 5 days. Patient should start on December 24, 2024. benzonatate (TESSALON PERLE) 100 mg capsule Take 1 capsule by mouth three times a day as needed for cough. allopurinol (ZYLOPRIM) 300 mg tablet Take 1 tablet by mouth two times a day. hydroCHLOROthiazide 25 mg tablet Take 1 tablet by mouth once daily. levothyroxine (SYNTHROID) 25 mcg tablet Take 1 tablet by mouth daily before breakfast. WALKER ROLLATOR SEAT WITH 6 WHEELS - RED R26.89 and R29.6 flecainide (TAMBOCOR) 100 mg tablet TAKE 1 TABLET BY MOUTH EVERY 12 HOURS (DOSE INCREASE) cyanocobalamin (VITAMIN B-12) 1,000 mcg tab Take [...] Never Smokeless tobacco: Never Vaping Use Vaping status: Never Used Substance Use Topics Alcohol use: Never Drug use: No Review of Systems Constitutional: Positive for chills and fatigue. Negative for diaphoresis and fever. HENT: Positive for congestion, postnasal drip, rhinorrhea, sinus pressure and sinus pain. Negative for sore throat. Eyes: Negative for pain, redness and itching. Respiratory: Positive for cough. Negative for apnea and chest tightness. Cardiovascular: Negative for chest pain. Gastrointestinal: Negative for abdominal pain, anorexia, change in bowel habit, nausea and vomiting. Musculoskeletal: Negative for arthralgias, joint swelling, myalgias and neck pain. Skin: Negative for color change, pallor and rash. Allergic/Immunologic: Negative for environmental allergies, food allergies and immunocompromised state. Neurological: Positive for headaches. Negative for dizziness, vertigo, facial asymmetry, weakness and numbness. Hematological: Positive for adenopathy. Does not bruise/bleed easily. Psychiatric/Behavioral: Negative for agitation and behavioral problems. Objective BP 119/73 Pulse 66 Temp 37.7 C (99.8 F) Resp 22 Wt 116.1 kg (255 lb 15.3 oz) SpO2 96% BMI 38.92 kg/m Physical Exam Vitals and nursing note reviewed. Constitutional: General: She is not in acute distress. Appearance: Normal appearance. She is normal weight. She is not ill-appearing, toxic-appearing or diaphoretic. HENT: Head: Normocephalic and atraumatic. Right Ear: Ear canal and external ear normal. Left Ear: Ear canal and external ear normal. Nose: Congestion present. No rhinorrhea. Mouth/Throat: Mouth: Mucous membranes are moist. Pharynx: Posterior oropharyngeal erythema present. No oropharyngeal exudate. Eyes: General: Right eye: No discharge. Left [...] signs of injury. Normal range of motion. Cervical back: Normal range of motion and neck supple. No rigidity. Right lower leg: No edema. Left lower leg: No edema. Lymphadenopathy: Cervical: Cervical adenopathy present. Skin: General: Skin is warm and dry. Coloration: Skin is not jaundiced or pale. [...] Judgment normal. Assessment and Plan ASSESSMENT/PLAN: 1. URI, acute - ICD9: 465.9, ICD10: J06.9 (primary diagnosis) Acute onset yesterday - Discussed viral etiology and rationale for treatment. - Symptomatic treatment with prn analgesia - Supportive care with fluids and rest RX Tessalon Perles - The patient may also use warm salt water gargles, throat lozenges and/or OTC throat spray as needed and nasal saline gtts and suction prn. - Follow up in 3-5 days if symptoms persist or sooner if worsening of symptoms - COVID & INFLUENZA A/B & RSV PCR, ROUTINE-obtained and pending 2. Exposure to influenza - ICD9: V01.79, ICD10: Z20.828 tested POSITIVE She is interested in Tamiflu , called in and will picking supervisor tomorrow if FLU is POSITIVE - COVID & INFLUENZA A/B & RSV PCR, ROUTINE Alta Moser APRN.DEBURRER MACHINE documented in this encounter [facility] 11-29-2024 Telephone encounter Note Called and spoke to patient. We will cancel her surgery for the time being. Her is her main caregiver and is unable to take care of her at this time. She reports that the injection she received is still holding her over and she has made another appointment to get another injection. She is hopeful that in March she will be ready for surgery. She will stay in touch and call if she needs anything sooner. Ashley Posadas [facility] 11-29-2024 Miscellaneous Notes Called and spoke to patient. We will cancel her surgery for the time being. Her is her main caregiver and is unable to take care of her at this time. She reports that the injection she received is still holding her over and she has made another appointment to get another injection. She is hopeful that in March she will be ready for surgery. She will stay in touch and call if she needs anything sooner. Ashley Posadas documented in this encounter [facility] 11-28-2024 Telephone encounter Note ordered [facility] Work Phone: 11-28-2024 Miscellaneous Notes ordered Patient calling in wanted to schedule her yearly mammogram. Please place order. Jillian Huntley November 28, 2024 8:54 AM documented in this encounter [facility] 11-28-2024 Telephone encounter Note Patient calling in wanted to schedule her yearly mammogram. Please place order. Jillian Huntley November 28, 2024 8:54 AM [facility] 11-25-2024 Note HNO ID: [id number] Author: LADI ROCK MD Service: ? Author Type: Physician Type: Progress Notes Filed: 11/25/2024 09:40 Note Text: EMILY Campuzano is a 74 year old female who presents with probable laryngeal spasm. Patient states in 2017 she was intubated for an ablation and had a hematoma in her oropharynx. Patient was seen by ENT at that time patient is concerned since she is having upcoming surgery on her shoulder. Patient also complains about having episodes when she is emotional and crying that her throat feels like it is closing up. Patient denies any reflux symptoms patient denies any swallowing issues patient denies any symptoms occurring when she is laying down at night patient states the episodes last for 30 to 45 seconds. ROS General Weight loss: No Fatigue: No Night sweats:No Cardiac Chest pain:No Fast heart rate:No Swelling in the feet:No Respiratory Short of breath:No Cough:No Wheezing:No Gastrointestinal Nausea:No Vomiting:No Indigestion:No Past medical history, family history, and social history reviewed. PE There were no vitals taken for this visit. General: Patient is awake, alert, NAD. Voice is normal. Skin: normal Eyes: Extraocular motion and Gaze is normal. Ears: Right external auditory canal is normal. TMJ: normal. Right tympanic membranes normal. Left external auditory canal is normal. Left tympanic membrane normal. Nose: Septum is normal. Turbinates are normal. Nasopharynx:normal Oral Cavity/Oropharynx: Lips normal Dentition normal Tongue normal. Tonsils normal. Palate and uvula normal. Pharynx posterior normal Hypopharynx: Base of tongue normal Pyriform sinus normal. Larynx: Vocal cords normal. Epiglottis normal. Post cricoid normal. Moderate edema posteriorly Salivary glands: Parotid normal. Submandibular and sublingual normal. Thyroid: normal. Lymphatic/Neck: Lymph nodes normal. Neurologic: Facial nerve normal. ASSESSMENT/PLAN: 1. Laryngeal spasm - ICD9: 478.75, ICD10: J38.5 I have offered possibly reflux medicine to see if this would help but it seems to be more related to an emotional state and at this point I have reassured her and we will see her back as needed. I also did not feel that she would be a difficult intubation in any way Ladi Rock MD Findings will be communicated to the referring physician via mail or electronic medical record. [facility] 11-25-2024 History of Present illness Narrative HPI Katelynn Campuzano is a 74 year old female who presents with probable laryngeal spasm. Patient states in 2017 she was intubated for an ablation and had a hematoma in her oropharynx. Patient was seen by ENT at that time patient is concerned since she is having upcoming surgery on her shoulder. Patient also complains about having episodes when she is emotional and crying that her throat feels like it is closing up. Patient denies any reflux symptoms patient denies any swallowing issues patient denies any symptoms occurring when she is laying down at night patient states the episodes last for 30 to 45 seconds. ROS General Weight loss: No Fatigue: No Night sweats:No Cardiac Chest pain:No Fast heart rate:No Swelling in the feet:No Respiratory Short of breath:No Cough:No Wheezing:No Gastrointestinal Nausea:No Vomiting:No Indigestion:No Past medical history, family history, and social history reviewed. PE There were no vitals taken for this visit. General: Patient is awake, alert, NAD. Voice is normal. Skin: normal Eyes: Extraocular motion and Gaze is normal. Ears: Right external auditory canal is normal. TMJ: normal. Right tympanic membranes normal. Left external auditory canal is normal. Left tympanic membrane normal. Nose: Septum is normal. Turbinates are normal. Nasopharynx:normal Oral Cavity/Oropharynx: Lips normal Dentition normal Tongue normal. Tonsils normal. Palate and uvula normal. Pharynx posterior normal Hypopharynx: Base of tongue normal Pyriform sinus normal. Larynx: Vocal cords normal. Epiglottis normal. Post cricoid normal. Moderate edema posteriorly Salivary glands: Parotid normal. Submandibular and sublingual normal. Thyroid: normal. Lymphatic/Neck: Lymph nodes normal. Neurologic: Facial nerve normal. ASSESSMENT/PLAN: 1. Laryngeal spasm - ICD9: 478.75, ICD10: J38.5 I have offered possibly reflux medicine to see if this would help but it seems to be more related to an emotional state and at this point I have reassured her and we will see her back as needed. I also did not feel that she would be a difficult intubation in any way Ladi Rock MD Findings will be communicated to the referring physician via mail or electronic medical record. documented in this encounter [facility] 11-15-2024 Instructions Collette Mendes, 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[facility] - 11/15/2024 8:24 AM EST covid rsv and influenza test ordered You will be notified in 12-24 hours, results available on MyChart Rest, increase water intake Motrin or Tylenol as needed for fever or pain. Salt water gargles, chloraseptic spray or lozenges as needed for sore throat. Warm beverages, honey. Nasal saline spray as needed Cool mist humidifier at night Tylenol (generic acetaminophen) 500 mg-2 tabs every 8 hrs. as needed for fever and aches Ibuprofen 600 mg (3-200mg tablets) every 6 hours Flonase or Nasonex 2 sprays in each nostril once a day Zyrtec 10 mg By mouth daily at bedtime * Seek medical care immediately, call 911, go to ER if you have chest pain, difficulty breathing, shortness of breath, inability to swallow. documented in this encounter [facility] 11-15-2024 History of Present illness Narrative Subjective The history is provided by the patient. No manager language was used. HPI Katelynn Campuzano is a 74 year old female who presents today for CC of sore throat and drainage for 4 days. She has used throat lozenges with short term relief. She states she also has a mild cough. She states has similar symptoms. BP 135/78 Pulse (!) 56 Temp 36.4 C (97.6 F) Resp 20 Wt 115 kg (253 lb 8.5 oz) SpO2 98% BMI 38.55 kg/m Social History Tobacco Use Smoking status: Never Smokeless tobacco: Never Vaping Use Vaping status: Never Used Substance Use Topics Alcohol use: Never Drug use: No PAST MEDICAL HISTORY Diagnosis Date Acquired hypothyroidism 07/16/2016 Continue home Levothyroxine dose. 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 - discussed with the ENT team, r Osteopenia Paroxysmal atrial fibrillation (HCC) Personal history of colonic polyps Colon polyps Pulmonary hypertension (HCC) 05/06/2024 Seeing Pulm S/P ablation of atrial fibrillation 06/24/2017 Date of procedure 06/23/17. Indication: persistent atrial fibrillation. - restart anticoagulation on Thursday06/29/2017 SEC HYPERPARATHYROID, NON-RENAL 09/02/2005 Situational depression 06/07/2014 Skin cancer of nose 10/21/2023 basal cell Skin cancer screening 05/06/[address] Granda Tuberculin test reaction Unspecified hemorrhoids without mention of complication Hemorrhoids Vitamin D deficiency 08/17/2013 I have confirmed and edited as necessary, the [facility] Review of Systems Constitutional: Negative for chills, fever and malaise/fatigue. HENT: Positive for sore throat. Negative for congestion, ear pain and sinus pain. Post nasal drainage Respiratory: Positive for cough. Negative for sputum production, shortness of breath and wheezing. Cardiovascular: Negative for chest pain. Gastrointestinal: Negative for abdominal pain, diarrhea, nausea and vomiting. Musculoskeletal: Negative for myalgias. Neurological: Negative for headaches. Objective Physical Exam Vitals and nursing note reviewed. HENT: Head: Normocephalic and atraumatic. Right Ear: Tympanic membrane, ear canal and external ear normal. Left Ear: Tympanic membrane, ear canal and external ear normal. Nose: Mucosal edema, congestion and rhinorrhea present. Right Sinus: No maxillary sinus tenderness or frontal sinus tenderness. Left Sinus: No maxillary sinus tenderness or frontal sinus tenderness. Mouth/Throat: Pharynx: Uvula midline. Posterior oropharyngeal erythema and postnasal drip present. No oropharyngeal exudate. Cardiovascular: Rate and Rhythm: Normal rate and regular rhythm. Heart sounds: Normal heart sounds. Pulmonary: Effort: Pulmonary effort is normal. Breath sounds: Normal breath sounds. Lymphadenopathy: Head: Right side of head: No submental, submandibular or tonsillar adenopathy. Left side of head: No submental, submandibular or tonsillar adenopathy. Cervical: No cervical adenopathy. Skin: General: Skin is warm and dry. Neurological: Mental Status: She is alert. Psychiatric: Mood and Affect: Affect normal. ASSESSMENT/PLAN: 1. Sore throat - ICD9: 462, ICD10: J02.9 (primary diagnosis) - suspect viral - Group A strep molecular testing negative - STREP A MOLECULAR (POC) 2. URI, acute - ICD9: 465.9, ICD10: J06.9 - Discussed viral etiology and rationale for treatment. - Symptomatic treatment with prn analgesia - Supportive care with fluids and rest - COVID & INFLUENZA A/B & RSV PCR, ROUTINE Diagnosis and treatment plan were discussed and questions were answered to the patient's satisfaction. Pt acknowledged understanding of concepts and follow up plan. Specific signs and symptoms that would indicate the need for higher level of care were discussed in detail warranting prompt ER evaluation. Collette Mendes APRN.DEBURRER MACHINE documented in this encounter [facility] 11-15-2024 Note HNO ID: [id number] Author: COLLETTE MENDES APRN.MIGUEL Service: ? Author Type: Nurse Practitioner Type: Progress Notes Filed: 11/15/2024 08:25 Note Text: Subjective The history is provided by the patient. No manager language was used. HPI Katelynn Campuzano is a 74 year old female who presents today for CC of sore throat and drainage for 4 days. She has used throat lozenges with short term relief. She states she also has a mild cough. She states has similar symptoms. BP 135/78 Pulse (!) 56 Temp 36.4 ?C (97.6 ?F) Resp 20 Wt 115 kg (253 lb 8.5 oz) SpO2 98% BMI 38.55 kg/m? Social History Tobacco Use Smoking status: Never Smokeless tobacco: Never Vaping Use Vaping status: Never Used Substance Use Topics Alcohol use: Never Drug use: No PAST MEDICAL HISTORY Diagnosis Date Acquired hypothyroidism 07/16/2016 Continue home Levothyroxine dose. 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 - discussed with the ENT team, r Osteopenia Paroxysmal atrial fibrillation (HCC) Personal history of colonic polyps Colon polyps Pulmonary hypertension (HCC) 05/06/2024 Seeing Pulm S/P ablation of atrial fibrillation 06/24/2017 Date of procedure 06/23/17. Indication: persistent atrial fibrillation. - restart anticoagulation on Thursday06/29/2017 SEC HYPERPARATHYROID, NON-RENAL 09/02/2005 Situational depression 06/07/2014 Skin cancer of nose 10/21/2023 basal cell Skin cancer screening 05/06/[address] Granda Tuberculin test reaction Unspecified hemorrhoids without mention of complication Hemorrhoids Vitamin D deficiency 08/17/2013 I have confirmed and edited as necessary, the [facility] Review of Systems Constitutional: Negative for chills, fever and malaise/fatigue. HENT: Positive for sore throat. Negative for congestion, ear pain and sinus pain. Post nasal drainage Respiratory: Positive for cough. Negative for sputum production, shortness of breath and wheezing. Cardiovascular: Negative for chest pain. Gastrointestinal: Negative for abdominal pain, diarrhea, nausea and vomiting. Musculoskeletal: Negative for myalgias. Neurological: Negative for headaches. Objective Physical Exam Vitals and nursing note reviewed. HENT: Head: Normocephalic and atraumatic. Right Ear: Tympanic membrane, ear canal and external ear normal. Left Ear: Tympanic membrane, ear canal and external ear normal. Nose: Mucosal edema, congestion and rhinorrhea present. Right Sinus: No maxillary sinus tenderness or frontal sinus tenderness. Left Sinus: No maxillary sinus tenderness or frontal sinus tenderness. Mouth/Throat: Pharynx: Uvula midline. Posterior oropharyngeal erythema and postnasal drip present. No oropharyngeal exudate. Cardiovascular: Rate and Rhythm: Normal rate and regular rhythm. Heart sounds: Normal heart sounds. Pulmonary: Effort: Pulmonary effort is normal. Breath sounds: Normal breath sounds. Lymphadenopathy: Head: Right side of head: No submental, submandibular or tonsillar adenopathy. Left side of head: No submental, submandibular or tonsillar adenopathy. Cervical: No cervical adenopathy. Skin: General: Skin is warm and dry. Neurological: Mental Status: She is alert. Psychiatric: Mood and Affect: Affect normal. ASSESSMENT/PLAN: 1. Sore throat - ICD9: 462, ICD10: J02.9 (primary diagnosis) - suspect viral - Group A strep molecular testing negative - STREP A MOLECULAR (POC) 2. URI, acute - ICD9: 465.9, ICD10: J06.9 - Discussed viral etiology and ration (more content not included)... [facility] 11-07-2024 Note HNO ID: [id number] Author: HILDA SNYDER PA-C Service: ? Author Type: Physician [employer] Manager Type: Progress Notes Filed: 11/07/2024 09:10 Note Text: Chief Complaint Patient presents with: 6 Month Exam HPI Katelynn Campuzano is a 74 year old female who presents here today for Chronic Medical Conditions.. Patient with hx of HTN, hyperlipidemia, A. Fib, pulm Hypertension, ROZ, GERD, hypothyroidism, and those as below. No specific concerns today. Past medical history, appointments, medications, allergies reviewed. Previous Medical History PAST MEDICAL HISTORY Diagnosis Date Acquired hypothyroidism 07/16/2016 Continue home Levothyroxine dose. 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 - discussed with the ENT team, r Osteopenia Paroxysmal atrial fibrillation (HCC) Personal history of colonic polyps Colon polyps Pulmonary hypertension (HCC) 05/06/2024 Seeing Pulm S/P ablation of atrial fibrillation 06/24/2017 Date of procedure 06/23/17. Indication: persistent atrial fibrillation. - restart anticoagulation on Thursday06/29/2017 SEC HYPERPARATHYROID, NON-RENAL 09/02/2005 Situational depression 06/07/2014 Skin cancer of nose 10/21/2023 basal cell Skin cancer screening 05/06/[address] Granda Tuberculin test reaction Unspecified hemorrhoids without mention [...] CATH,PERCUTANEOUS LIG/TRNSXJ FLP TUBE ABDL/VAG APPR UNI/BI MOHS HEAD/NECK STAGE 1 <=5 10/21/2023 Nose PAST SURGICAL HISTORY OF cataracts bilateral PAST [...] File Prior to Visit Medication Sig hydroCHLOROthiazide 25 mg tablet Take 1 tablet by mouth once daily. levothyroxine (SYNTHROID) 25 mcg tablet Take 1 tablet by mouth daily before breakfast. WALKER ROLLATOR SEAT WITH 6 WHEELS - RED R26.89 and R29.6 allopurinol (ZYLOPRIM) 300 mg tablet Take 1 tablet by mouth two times a day. flecainide (TAMBOCOR) 100 mg tablet TAKE 1 TABLET BY MOUTH EVERY 12 HOURS (DOSE INCREASE) cyanocobalamin (VITAMIN B-12) 1,000 mcg tab Take 1 tablet by mouth once daily. Cholecalciferol, Vitamin D3, (VITAMIN D-3) 50 mcg (2,000 unit) cap Take 1 capsule by mouth once daily. XARELTO 20 mg tablet TAKE 1 TABLET (more content not included)... [facility] 11-07-2024 History of Present illness Narrative Chief Complaint Patient presents with: 6 Month Exam HPI Katelynn Campuzano is a 74 year old female who presents here today for Chronic Medical Conditions.. Patient with hx of HTN, hyperlipidemia, A. Fib, pulm Hypertension, ROZ, GERD, hypothyroidism, and those as below. No specific concerns today. Past medical history, appointments, medications, allergies reviewed. Previous Medical History PAST MEDICAL HISTORY Diagnosis Date Acquired hypothyroidism 07/16/2016 Continue home Levothyroxine dose. 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 - discussed with the ENT team, r Osteopenia Paroxysmal atrial fibrillation (HCC) Personal history of colonic polyps Colon polyps Pulmonary hypertension (HCC) 05/06/2024 Seeing Pulm S/P ablation of atrial fibrillation 06/24/2017 Date of procedure 06/23/17. Indication: persistent atrial fibrillation. - restart anticoagulation on Thursday06/29/2017 SEC HYPERPARATHYROID, NON-RENAL 09/02/2005 Situational depression 06/07/2014 Skin cancer of nose 10/21/2023 basal cell Skin cancer screening 05/06/[address] Granda Tuberculin test reaction Unspecified hemorrhoids without mention [...] CATH,PERCUTANEOUS LIG/TRNSXJ FLP TUBE ABDL/VAG APPR UNI/BI MOHS HEAD/NECK STAGE 1 <=5 10/21/2023 Nose PAST SURGICAL HISTORY OF cataracts bilateral PAST [...] File Prior to Visit Medication Sig hydroCHLOROthiazide 25 mg tablet Take 1 tablet by mouth once daily. levothyroxine (SYNTHROID) 25 mcg tablet Take 1 tablet by mouth daily before breakfast. WALKER ROLLATOR SEAT WITH 6 WHEELS - RED R26.89 and R29.6 allopurinol (ZYLOPRIM) 300 mg tablet Take 1 tablet by mouth two times a day. flecainide (TAMBOCOR) 100 mg tablet TAKE 1 TABLET BY MOUTH EVERY 12 HOURS (DOSE INCREASE) cyanocobalamin (VITAMIN B-12) 1,000 mcg tab Take [...] 12.5 mg by mouth every 12 hours. benzonatate (TESSALON PERLES) 100 mg capsule Take 1 capsule by mouth three times a day as needed for up to 12 doses. No current facility-administered medications on file prior to visit. Social History Social History Tobacco Use Smoking status: Never Smokeless tobacco: Never Vaping Use Vaping status: Never Used Substance Use Topics Alcohol use: Never Drug use: No Review of Symptoms REVIEW OF SYSTEMS GENERAL: No weight loss, malaise or fevers NECK: Negative for lumps, goiter, pain and significant neck swelling RESPIRATORY: Negative for cough, hemoptysis, wheezing, COPD, dyspnea or shortness of breath CARDIOVASCULAR: Negative for chest pain, leg swelling, hypertension, CHF or palpitations NEURO: No history of headaches, syncope, paralysis, seizures or tremors EXAM: BP 122/80 (BP Site: Left Arm, BP Position: Sitting, BP Cuff Size: Large Adult) Pulse 61 Temp 36.1 C (97 F) Resp 18 Wt 116.1 kg (256 lb) SpO2 96% BMI 38.92 kg/m General Appearance: Well appearing, alert, in no acute distress, well-hydrated, well nourished.. Neck: Supple, no adenopathy; thyroid symmetric, normal size, no bruits. Lungs: Lungs clear to auscultation. No wheezing, rhonchi, rales.. Heart: RRR without murmur, gallop, or rubs. No ectopy. Extremities: No deformities, edema, skin discoloration, clubbing or cyanosis. Good capillary refill. . Peripheral Pulses: Normal. Health Maintenance List Colorectal Cancer Screening due on 04/11/2024 BP Controlled (<130/80) due on 04/24/2024 Annual PCP Team Chronic Disease Visit due on 05/06/2025 Anxiety Screening due on 05/06/2025 Diabetes Screening due on 10/24/2027 Lipid Screening due on 10/24/2029 DTaP,Tdap,Td Vaccine(6 - Td or Tdap) due on 09/02/2032 Bone Density Screening Completed Influenza Vaccine Completed Advance Directive Discussion Completed RSV Vaccine Completed Hepatitis C Screening Completed Shingrix Vaccine Completed Covid-19 Vaccine Completed Pneumococcal Vaccine: 50+ Completed Mammogram Screening Discontinued Data reviewed Latest Ref Rng 10/24/2024 Glucose 74 - 99 mg/dL 103 (H) BUN 7 - 21 mg/dL 21 Creatinine 0.58 - 0.96 mg/dL 0.88 Sodium 136 - 144 mmol/L 138 Potassium 3.7 - 5.1 mmol/L 3.6 (L) Chloride 98 - 107 mmol/L 102 CO2 22 - 30 mmol/L 24 Anion Gap 8 - 15 mmol/L 12 Calcium 8.5 - 10.2 mg/dL 10.1 eGFR >=60 mL/min/1.73m 69 Total Cholesterol, Nonfasting <200 mg/dL 194 Triglycerides, Nonfasting <150 mg/dL 151 (H) HDL Cholesterol, Nonfasting >39 mg/dL 43 LDL Cholesterol, Nonfasting <100 mg/dL 121 (H) Non HDL Cholesterol, Nonfasting <130 mg/dL 151 (H) VLDL Cholesterol, Nonfasting <30 mg/dL 30 (H) Total Chol/HDL Ratio, Nonfasting <5.10 mg/dL 4.51 LDL/HDL Ratio, Nonfasting <2.54 mg/dL 2.81 (H) TSH 0.270 - 4.200 mIU/L 3.220 Legend: (H) High (L) Low ASSESSMENT/PLAN: 1. Essential hypertension - ICD9: 401.9, ICD10: I10 (primary diagnosis) - Controlled - Continue current medications - Recommend home blood pressure monitoring, to bring results to next visit - Encouraged sodium restriction, DASH or Mediterranean diet - Recommend regular aerobic exercise - URINALYSIS, WITH MICROSCOPIC - COMPREHENSIVE METABOLIC PANEL - COMPLETE BLOOD COUNT AND DIFFERENTIAL 2. Hyperlipidemia, mixed - ICD9: 272.2, ICD10: E78.2 - Uncontrolled - Counseled on healthy diet and regular exercise - Discussed need for and benefit of weight loss. BMI 38.92 kg/(m^2) - LIPID PANEL, NONFASTING 3. Hyperparathyroidism (HCC) - ICD9: 252.00, ICD10: E21.3 No concerns on recent labs 4. Acquired hypothyroidism - ICD9: 244.9, ICD10: E03.9 - Instructed patient on importance of taking on an empty stomach either first thing in the morning or at bedtime. - continue current dose of Synthroid 0.025 mg - LEVOTHYROXINE 25 MCG TABLET - THYROID STIMULATING HORMONE 5. Low serum vitamin B12 - ICD9: 266.2, ICD10: E53.8 6. Situational depression - ICD9: 309.0, ICD10: F43.21 stable 7. Paroxysmal atrial fibrillation (HCC) - ICD9: 427.31, ICD10: I48.0 Cont with cardio 8. GERD without esophagitis - ICD9: 530.81, ICD10: K21.9 stable 9. Hyperuricemia - ICD9: 790.6, ICD10: E79.0 - URIC ACID Hilda Snyder PA-C documented in this encounter [facility] 11-02-2024 History of Present illness Narrative Scan on 11/02/2024 9:54 AM by Aspen Ibarra PA-C: Romana Swenson MA documented in this encounter [facility] 11-02-2024 Note HNO ID: [id number] Author: SANTIAGO SWENSON MA Service: ? Author Type: Egg Candler Type: Progress Notes Filed: 11/02/2024 15:58 Note Text: Scan on 11/02/2024 9:54 AM by Aspen Ibarra PA-C: Romana Swenson MA [facility] 10-11-2024 Telephone encounter Note Does not need appt this year if she had one last year [facility] Work Phone: 10-11-2024 Miscellaneous Notes Does not need appt this year if she had one last year documented in this encounter [facility] 10-10-2024 Note HNO ID: [id number] Author: LUIS ALBERTO SOMMERS LPN Service: ? Author Type: LICENSED NURSE Type: Progress Notes Filed: 10/10/2024 07:02 Note Text: Scan on 10/06/2024 2:51 PM by Aspen Iabrra PA-C: Consultation - Cardiology [facility] 10-10-2024 History of Present illness Narrative Scan on 10/06/2024 2:51 PM by Aspen Ibarra PA-C: Consultation - Cardiology documented in this encounter [facility] 09-09-2024 History of Present illness Narrative Associated Order(s): Large Joint Arthro/Inj: L shoulder joint Post-Procedure Diagnose(s): Glenohumeral arthritis, left Images from the original note were not included. PAIN EVALUATION 09/09/2024 1007 Pain Location: Shoulder-Left Description: Sharp;Stiffness Frequency: Intermittent Intervention/Comfort measure: Imagery;Cold;Heat;Medication;Repos ition;Relaxation tylenol, icy/hot cream, Comments: L-subacromial bursa 05/03/24 Encounter Diagnosis ICD-10-CM 1. Glenohumeral arthritis, left M19.012 Katelynn Campuzano presents today for evaluation left shoulder She has had worsening pain and function for months, history of cortisone injections but not fully relieved by these Pain is described as being dull at rest and sharper with movement. It is felt primarily over the anterior and lateral shoulder. It will sometimes radiate to the elbow. The pain affects lifting, reaching, and rotational activities. The pain is often worse at night. EXAM: Shoulder Musculoskeletal Exam Inspection Left Ecchymosis: none Peripheral edema: none Atrophy: none Symmetry: symmetric Masses: none Skin tenting: none Prior incision: none Palpation Left Crepitus: no crepitus Increased warmth: none Tenderness: present Anterior shoulder: moderate Posterior shoulder: mild Clavicle: none AC joint: mild Sternoclavicular joint: none Rotator cuff: moderate Greater tuberosity: mild Trapezius: mild Medial scapula: none Superior pole of scapula: none Inferior pole of scapula: none Bicipital groove: mild Proximal biceps: moderate Range of Motion Left Active ROM: abnormal and pain. Passive ROM: abnormal and pain. Active forward elevation: 90. Passive forward elevation: 120. Shoulder active abduction: 90. Passive abduction: 90. Active external rotation at side: 60. Passive external rotation at side: 60. Active external rotation in abduction: 80. Passive external rotation in abduction: 80. Active internal rotation in abduction: 60. Passive internal rotation in abduction: 60. Internal rotation: T12. Strength Left External rotation: 4+/5. Internal rotation: 4+/5. Abduction: 4+/5. Neurovascular Left Left shoulder nerve sensation is normal. Scapula Left Left shoulder scapula is normal. Special Tests Left Rotator Cuff Signs Neer's test: positive Munoz test: positive External rotation lag sign: negative Supraspinatus: positive Belly press test: negative Painful arc test: positive Lift-off sign: negative Biceps/eros Signs Harriman's test: positive Clicking/popping: negative Speed's test: positive AC Joint Signs Active horizontal adduction pain: negative Single finger test: negative General Constitutional: appears stated age Labored breathing: no Psychiatric: normal mood and affect and no acute distress Neurological: alert and oriented x3 Skin: intact Lymphadenopathy: none IMAGING: Radiographs of the left shoulder personally reviewed today. Date of exam today. This is a 3-view shoulder exam, including AP, outlet, and axillary views. My interpretation of the examination: Advanced osteoarthritis of the glenohumeral joint PLAN: Katelynn Campuzano presents today with left shoulder osteoarthritis. The current condition represents a significant risk of loss of function of the extremity due to the worsening pain and diminished use of the arm at this time. Based on my evaluation today, I do not feel that nonsurgical interventions including physical therapy, activity modification, and medical management are likely to provide this patient with an acceptable level of improvement in functional use of the arm, nor significant pain relief. After thorough review of history, examination findings, and imaging, we discussed surgical intervention today which would be reverse total shoulder arthroplasty. I described the procedure in detail as well as the expected healing time of 3-6 months and physical therapy regimen following surgery, likely for much of this time. Informed consent was discussed in detail and signed in the office today. Significant risks of surgery include general anesthesia, and those from surgery including infection, nerve injury, bleeding, procedure failure and possible need for repeat procedure. No guarantees as to the outcome of surgery were given or implied. Surgery will be scheduled for the next available date. Large Joint Arthro/Inj: L shoulder joint 09/09/2024 11:15 AM The procedure site was prepped in the usual sterile fashion. Site: L shoulder joint Medications: 80 mg triamcinolone acetonide 40 mg/mL Anesthetics: 4 mL bupivacaine (PF) 0.25 % (2.5 mg/mL) Outcome: Tolerated well, no immediate complications Post-injection instructions were reviewed with the patient and the patient voiced understanding of these instructions. Murphy Olmos MD Shoulder & Elbow Surgeon Department of Orthopaedic Surgery [facility] documented in this encounter [facility] 09-09-2024 History of Present illness Narrative Radiology Service Progress Note PATIENT NAME: Katelynn Campuzano DATE OF SERVICE: September 09, 2024 TIME: 9:48 AM PATIENT IDENTITY VERIFICATION COMPLETED USING TWO (2) IDENTIFIERS: Name and Date of confirmed by patient verbally. FALL SCREENING: Has the patient had 2 falls in the last year or 1 fall with injury or currently using an Ambulatory Assistive Device (Walker, Cane, Wheelchair, Crutches, etc.)? No PATIENT GENDER DATA: Female. status: : No status: NO. PATIENT RELEVANT IMPLANT DATA REVIEWED: Not Applicable PATIENT PRESENTS WITH AN IMPLANTABLE OR ATTACHED COMMERCIAL MAKEUP ARTIST: No RADIOLOGY DEPARTMENT: General X-ray: Exam(s) Completed: Upper Extremity X-Ray(s): Shoulder, grashey, outlet view and axillary left PERIPHERAL IV DATA: Not applicable SIGNED BY: MICHELLE Black September 09, 2024 9:48 AM documented in this encounter [facility] 09-09-2024 Note HNO ID: [id number] Author: ASHLEY DRIVER CT Service: Radiology Author Type: Technologist Type: Progress Notes Filed: 09/09/2024 09:48 Note Text: Radiology Service Progress Note PATIENT NAME: Katelynn Campuzano DATE OF SERVICE: September 09, 2024 TIME: 9:48 AM PATIENT IDENTITY VERIFICATION COMPLETED USING TWO (2) IDENTIFIERS: Name and Date of confirmed by patient verbally. FALL SCREENING: Has the patient had 2 falls in the last year or 1 fall with injury or currently using an Ambulatory Assistive Device (Walker, Cane, Wheelchair, Crutches, etc.)? No PATIENT GENDER DATA: Female. status: : No status: NO. PATIENT RELEVANT IMPLANT DATA REVIEWED: Not Applicable PATIENT PRESENTS WITH AN IMPLANTABLE OR ATTACHED COMMERCIAL MAKEUP ARTIST: No RADIOLOGY DEPARTMENT: General X-ray: Exam(s) Completed: Upper Extremity X-Ray(s): Shoulder, grashey, outlet view and axillary left PERIPHERAL IV DATA: Not applicable SIGNED BY: MICHELLE Black September 09, 2024 9:48 AM [facility] 09-09-2024 History of Present illness Narrative Radiology Service Progress Note PATIENT NAME: Katelynn Campuzano DATE OF SERVICE: September 09, 2024 TIME: 8:42 AM PATIENT IDENTITY VERIFICATION COMPLETED USING TWO (2) IDENTIFIERS: Name and Date of confirmed by patient verbally. FALL SCREENING: Has the patient had 2 falls in the last year or 1 fall with injury or currently using an Ambulatory Assistive Device (Walker, Cane, Wheelchair, Crutches, etc.)? No PATIENT GENDER DATA: Female. status: : No status: NO. PATIENT RELEVANT IMPLANT DATA REVIEWED: Not Applicable PATIENT PRESENTS WITH AN IMPLANTABLE OR ATTACHED COMMERCIAL MAKEUP ARTIST: No RADIOLOGY DEPARTMENT: General X-ray: Exam(s) Completed: Chest X-Ray PERIPHERAL IV DATA: Not applicable SIGNED BY: RT Asiya(R) September 09, 2024 8:42 AM documented in this encounter [facility] 09-09-2024 History of Present illness Narrative This note was created using [employer]. Subjective Katelynn Campuzano is a 74 year old female. HPI Ten days ago pt drove around the country and the next day she had burning eyes and a sore throat. She developed a dry cough that woke her up during the night. Cough has been ongoing for the last 10 days. Review of Systems Constitutional: Negative for fatigue and fever. HENT: Positive for sore throat. Negative for congestion. Respiratory: Positive for cough. Objective BP 158/84 Pulse (!) 58 Temp 36.3 C (97.3 F) Resp 20 Wt 117 kg (257 lb 15 oz) SpO2 98% BMI 39.22 kg/m Physical Exam Vitals and nursing note reviewed. Constitutional: General: She is not in acute distress. Appearance: Normal appearance. She is not ill-appearing. HENT: Head: Normocephalic. Mouth/Throat: Mouth: Mucous membranes are moist. Eyes: Conjunctiva/sclera: Conjunctivae normal. Cardiovascular: Rate and Rhythm: Normal rate and regular rhythm. Pulmonary: Effort: Pulmonary effort is normal. Breath sounds: Normal breath sounds. Musculoskeletal: General: Normal range of motion. Cervical back: Normal range of motion. Skin: General: Skin is warm and dry. Neurological: General: No focal deficit present. Mental Status: She is alert. Psychiatric: Mood and Affect: Mood normal. Behavior: Behavior normal. Assessment and Plan ASSESSMENT/PLAN: 1. Acute cough - ICD9: 786.2, ICD10: R05.1 X-ray of the chest shows no acute disease process. Flu and COVID swab pending. Patient was given prescription for Tessalon Perles as noted below. She will use [id number] treatments otherwise and follow-up with PCP if symptoms are not improving. We did discuss the use of antihistamines such as Claritin or Zyrtec for possible allergy induced cough. - XR CHEST 2V FRONTAL/LAT - COVID & INFLUENZA A/B & RSV PCR, ROUTINE - BENZONATATE 100 MG CAPSULE Lawrence Little APRN.[employer] MACHINE documented in this encounter [facility] 08-29-2024 Telephone encounter Note Patient returned call and went over results, notes from express care provider with understanding. [facility] 08-29-2024 Miscellaneous Notes Patient returned call and went over results, notes from express care provider with understanding. Left message for patient to return call. Federica Floyd MA Let patient know she is negative for any rib fractures. Continue treatment plan as discussed with provider. documented in this encounter [facility] 08-29-2024 Telephone encounter Note Left message for patient to return call. Federica Floyd MA [facility] 08-29-2024 Telephone encounter Note Let patient know she is negative for any rib fractures. Continue treatment plan as discussed with provider. [facility] Work Phone: 08-29-2024 History of Present illness Narrative Radiology Service Progress Note PATIENT NAME: Katelynn Campuzano DATE OF SERVICE: August 29, 2024 TIME: 1:37 PM PATIENT IDENTITY VERIFICATION COMPLETED USING TWO (2) IDENTIFIERS: Name and Date of confirmed by patient verbally. FALL SCREENING: Has the patient had 2 falls in the last year or 1 fall with injury or currently using an Ambulatory Assistive Device (Walker, Cane, Wheelchair, Crutches, etc.)? No PATIENT GENDER DATA: Female. status: : No status: NO. PATIENT RELEVANT IMPLANT DATA REVIEWED: Yes PATIENT PRESENTS WITH AN IMPLANTABLE OR ATTACHED COMMERCIAL MAKEUP ARTIST: No RADIOLOGY DEPARTMENT: General X-ray: Exam(s) Completed: Rib X-Ray: Right PERIPHERAL IV DATA: Not applicable SIGNED BY: RT Declan(R) August 29, 2024 1:37 PM documented in this encounter [facility] 08-29-2024 History of Present illness Narrative Images from the original note were not included. Subjective Patient came in with complaints of right rib pain. Patient says she fell into some kind of plant. Patient says she feels tender when the area is touched. Patient would just like to make sure she does not have a broken rib. Patient denies any shortness of breath or other symptoms. The history is provided by the patient. No manager language was used. Review of Systems Constitutional: Negative. Skin: Negative. Objective Physical Exam Constitutional: Appearance: Normal appearance. Pulmonary: Effort: Pulmonary effort is normal. Abdominal: Comments: Patient is tender in the area marked purple above. No signs of bruising or swelling or deformities noted. Neurological: Mental Status: She is alert. PAST MEDICAL HISTORY Diagnosis Date Acquired hypothyroidism 07/16/2016 Continue home Levothyroxine dose. 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 - discussed with the ENT team, r Osteopenia Paroxysmal atrial fibrillation (HCC) Personal history of colonic polyps Colon polyps Pulmonary hypertension (HCC) 05/06/2024 Seeing Pulm S/P ablation of atrial fibrillation 06/24/2017 Date of procedure 06/23/17. Indication: persistent atrial fibrillation. - restart anticoagulation on Thursday06/29/2017 SEC HYPERPARATHYROID, NON-RENAL 09/02/2005 Situational depression 06/07/2014 Skin cancer of nose 10/21/2023 basal cell Skin cancer screening 05/06/[address] Granda Tuberculin test reaction Unspecified hemorrhoids without mention [...] CATH,PERCUTANEOUS LIG/TRNSXJ FLP TUBE ABDL/VAG APPR UNI/BI MOHS HEAD/NECK STAGE 1 <=5 10/21/2023 Nose PAST SURGICAL HISTORY OF cataracts bilateral PAST SURGICAL HISTORY OF 06/23/2017 heart ablation PAST SURGICAL HISTORY OF 08/17/2018 heart ablation VAGINAL HYSTERECTOMY UTERUS 250 GM/< 1992 Hysterectomy, vaginal [fibroids and bleeding[[ ALLERGIES Sulfa (Sulfonamide Antibiotics) and Penicillins MEDICATIONS hydroCHLOROthiazide 25 mg tablet Take 1 tablet by mouth once daily. levothyroxine (SYNTHROID) 25 mcg tablet Take 1 tablet by mouth daily before breakfast. allopurinol (ZYLOPRIM) 300 mg tablet Take 1 tablet by mouth two times a day. flecainide (TAMBOCOR) 100 mg tablet TAKE 1 TABLET BY MOUTH EVERY 12 HOURS (DOSE INCREASE) cyanocobalamin (VITAMIN B-12) 1,000 mcg tab Take [...] 12.5 mg by mouth every 12 hours. albuterol HFA (PROVENTIL HFA, VENTOLIN HFA) 90 mcg/actuation inhaler Inhale 2 Puffs as instructed every 4 hours as needed. WALKER ROLLATOR SEAT WITH 6 WHEELS - RED R26.89 and R29.6 FAMILY HISTORY Problem Relation Age of Onset Diabetes Mother Thyroid Mother other (Other) Mother colon polyps - not CA Heart Father other (Other) Brother colon polyps- not CA Cancer Daughter 4 neuroblastoma Social History Tobacco Use Smoking status: Never Smokeless tobacco: Never Vaping Use Vaping status: Never Used Substance Use Topics Alcohol use: Never Drug use: No ASSESSMENT/PLAN: 1. Pain in rib - ICD9: 786.50, ICD10: R07.81 - XR RIBS/CHEST 3V AP RIB/OBLS/CXR RIGHT * * * * Physician Interpretation * * * * TITLE: XR RIB/CHST 3V AP RIB/OBL/CHST R CLINICAL INDICATION: Right-sided chest wall pain after a TECHNIQUE: Three-view right-sided radiographic rib series with inclusion of a single frontal view of the chest COMPARISON: Radiograph of the chest dated 03/12/2022 FINDINGS: Stable cardiomediastinal silhouette. No focal consolidation. No discernible pleural effusion or pneumothorax. No acute displaced right rib fracture identified. 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 Degenerative changes in the spine. IMPRESSION IMPRESSION: No radiographic evidence of acute displaced right rib fracture. Crystal Slicer: [facility] Transcribe Date/Time: Aug 29 2024 11:44A Dictated by : PASCALE INTERIANO MD Just instructed to rest ice alternate Tylenol Motrin. Patient was okay with this care plan. Nancy Swenson APRN.DEBURRER MACHINE documented in this encounter [facility] 08-29-2024 Telephone encounter Note Patient notified and voiced understanding. Santiago Swenson MA [facility] 08-29-2024 Miscellaneous Notes Patient notified and voiced understanding. Santiago Swenson MA Let patient know US of thyroid shows nodule is stable compared to US in 2020. documented in this encounter [facility] 08-28-2024 Telephone encounter Note Let patient know US of thyroid shows nodule is stable compared to US in 2020. [facility] 08-25-2024 History of Present illness Narrative Radiology Service Progress Note PATIENT NAME: Katelynn Campuzano DATE OF SERVICE: August 25, 2024 TIME: 2:06 PM PATIENT IDENTITY VERIFICATION COMPLETED USING TWO (2) IDENTIFIERS: Name and Date of confirmed by patient verbally. FALL SCREENING: Has the patient had 2 falls in the last year or 1 fall with injury or currently using an Ambulatory Assistive Device (Walker, Cane, Wheelchair, Crutches, etc.)? No PATIENT GENDER DATA: Female. status: : No status: NO. PATIENT RELEVANT IMPLANT DATA REVIEWED: Not Applicable PATIENT PRESENTS WITH AN IMPLANTABLE OR ATTACHED COMMERCIAL MAKEUP ARTIST: No RADIOLOGY DEPARTMENT: Ultrasound PERIPHERAL IV DATA: Not applicable SIGNED BY: Alta Smith RDMS RVT August 25, 2024 2:06 PM documented in this encounter [facility] 08-22-2024 Telephone encounter Note Pt decided she does not need advice from pcp. Luis Alberto Sommers LPN [facility] 08-22-2024 Miscellaneous Notes Pt decided she does not need advice from pcp. Luis Alberto Sommers LPN Please see pt message and advise if okay to receive. Una Draper MA documented in this encounter [facility] 08-22-2024 Telephone encounter Note Please see pt message and advise if okay to receive. Una Draper MA [facility] 08-11-2024 Telephone encounter Note Patient has been scheduled [facility] 08-11-2024 Miscellaneous Notes Patient has been scheduled Patient is on the wait list for the following: NEW CONSULT FOR LT ARM / SHOULDER IN PAIN , pt needs to reschedule her appt that was canceled.unable to schedule due to modifers. please assist. [phone] documented in this encounter [facility] 08-11-2024 Telephone encounter Note Patient is on the wait list for the following: NEW CONSULT FOR LT ARM / SHOULDER IN PAIN , pt needs to reschedule her appt that was canceled.unable to schedule due to modifers. please assist. [phone] [facility] 08-11-2024 Telephone encounter Note Patient called in regarding injection appt tomorrow, she has been placed on antibiotics for infection under her arm. Returned call and left detailed voicemail that we are unable to perform injection tomorrow, once she is cleared by primary she will need to call and reschedule. [facility] 08-11-2024 Miscellaneous Notes Patient called in regarding injection appt tomorrow, she has been placed on antibiotics for infection under her arm. Returned call and left detailed voicemail that we are unable to perform injection tomorrow, once she is cleared by primary she will need to call and reschedule. documented in this encounter [facility] 08-11-2024 History of Present illness Narrative Images from the original note were not included. Subjective Thursday cliff said she woke up with a red warm spot on her left upper arm. Denies any fever chills and nusea vommiting. Denies any knowns injusy or bite to the area. Review of Systems Constitutional: Negative. HENT: Negative. Skin: Positive for rash. Negative for itching. Objective Physical Exam Skin: Comments: 5 cm by 3 cm erythema no crepitus or petiaia. No signs of drainage or lymphatic streaking. PAST MEDICAL HISTORY Diagnosis Date Acquired hypothyroidism 07/16/2016 Continue home Levothyroxine dose. 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 - discussed with the ENT team, r Osteopenia Paroxysmal atrial fibrillation (HCC) Personal history of colonic polyps Colon polyps Pulmonary hypertension (HCC) 05/06/2024 Seeing Pulm S/P ablation of atrial fibrillation 06/24/2017 Date of procedure 06/23/17. Indication: persistent atrial fibrillation. - restart anticoagulation on Thursday06/29/2017 SEC HYPERPARATHYROID, NON-RENAL 09/02/2005 Situational depression 06/07/2014 Skin cancer of nose 10/21/2023 basal cell Skin cancer screening 05/06/[address] Granda Tuberculin test reaction Unspecified hemorrhoids without mention [...] CATH,PERCUTANEOUS LIG/TRNSXJ FLP TUBE ABDL/VAG APPR UNI/BI MOHS HEAD/NECK STAGE 1 <=5 10/21/2023 Nose PAST SURGICAL HISTORY OF cataracts bilateral PAST SURGICAL HISTORY OF 06/23/2017 heart ablation PAST SURGICAL HISTORY OF 08/17/2018 heart ablation VAGINAL HYSTERECTOMY UTERUS 250 GM/< 1992 Hysterectomy, vaginal [fibroids and bleeding[[ ALLERGIES Sulfa (Sulfonamide Antibiotics) and Penicillins MEDICATIONS cephALEXin (KEFLEX) 500 mg capsule Take 1 capsule by mouth four times daily for 5 days. albuterol HFA (PROVENTIL HFA, VENTOLIN HFA) 90 mcg/actuation inhaler Inhale 2 Puffs as instructed every 4 hours as needed. hydroCHLOROthiazide 25 mg tablet Take 1 tablet by mouth once daily. levothyroxine (SYNTHROID) 25 mcg tablet Take 1 tablet by mouth daily before breakfast. WALKER ROLLATOR SEAT WITH 6 WHEELS - RED R26.89 and R29.6 allopurinol (ZYLOPRIM) 300 mg tablet Take 1 tablet by mouth two times a day. flecainide (TAMBOCOR) 100 mg tablet TAKE 1 TABLET BY MOUTH EVERY 12 HOURS (DOSE INCREASE) cyanocobalamin (VITAMIN B-12) 1,000 mcg tab Take [...] Never Smokeless tobacco: Never Vaping Use Vaping status: Never Used Substance Use Topics Alcohol use: Never Drug use: No ASSESSMENT/PLAN: 1. Cellulitis of skin - ICD9: 682.9, ICD10: L03.90 - CEPHALEXIN 500 MG CAPSULE Educated about proper use of medication and supportive therapy. Educated about red flag symptoms. Will call ortho because she is suppose to receive a shot tomorrow in the same arm but will notify them of the infection and see what they want to do. Patient okay with this care plan. Nancy Swenson APRN.MIGUEL documented in this encounter [facility] 07-18-2024 History of Present illness Narrative Images from the original note were not included. Episode Visit Count: 7 Therapist That Will Accept/Oversee The Plan Of Care: Alexsander Mayfield PT Start of Care Date: 02/26/24 Onset Date: 03/11/23 Plan of Care Certification Date: 05/02/24 Next Certification Due Date: 07/07/24 Patient Identified by Name and Date of : Yes REHABILITATION AND SPORTS THERAPY PHYSICAL THERAPY DISCONTINUANCE OF CARE PLAN OF CARE UPDATE: Assessment: Katelynn Campuzano is discontinued from Physical Therapy services due to Patient/Clinician mutual decision to discontinue current plan of care.. Patient was seen for 7 visits from Start of Care Date: 02/26/24 to 07/18/2024 and treatment included: Therapeutic exercise, Self-alf management, and Patient/Family/Caregiver Education. Goals updated 03/31/2024 Goals for Episode of Care: created on 02/26/24 through 05/20/24 Patient will report no falls. - Met so far Increase strength of B hip musculature to 4/5 via MMT in order to improve gait quality. - Progressing, will continue Pt will demonstrate safe use of a Rolator within 4 weeks to improve gait quality and improve balance with ambulation (pt needs to acquire a Rolator first) Patient Goals: Improve her balance SUBJECTIVE: Feels she is stronger and usually uses her cane which helps her. Found out she was doing too much exercise that would wear her out. Functional Limitations: walking Previous Treatment: None Pain: Pain Pain Level: 0 Pain Location: Hip - Right PROMIS Scales 07/16/2024 05/01/2024 04/12/2024 Higher is Better Phys Func - Score 35 (moderate dysfunction) 35 (moderate dysfunction) Phys Func - Percentile 7 7 Self-Eff Symptom - Score 44 (Average) 41 (Average) Self-Eff Symptom - Percentile 27 18 T-scores: mean of general population = 50. 5 points is clinically meaningfully difference Percentiles provide an indication of how the patient's score ranks in relation to the general population. Higher percentile rankings indicate better function/quality of life. 50th percentile is the average of the general population and indicates half of respondents had a worse score. OBJECTIVE MEASURES WITH LEVEL OF FUNCTION: LE AROM R LE AROM: WFL L LE AROM: WFL LE Strength R Hip ABduction: 3-/5 R Hip External Rotation: 3+/5 R Knee Extension (L3): 4/5 L Hip ABduction: 3-/5 L Hip External Rotation: 3+/5 L Knee Extension (L3): 4+/5 Gait Gait: Modified Independent Gait Distance (feet): 50 Gait Device: Cane Gait Deviations: General Deviations General Deviations/Observations: Scissoring of LEs, Antalgic gait, Lateral sway increased TREATMENT: Self-Snf Management: 1: All objective measures taken this session 2: Discussed using a rollator and how to use and adjust a rollator. Discussed pricing and the possibility that insurance will cover 1 DME per year. 3: Discussed benefits of supportive footwear such as rodriguez and which types of shoes to avoid for safety/balance reasons. Skilled Intervention: Skilled judgment in the selection of proper modification for activity of daily living/home management based on clinical presentation, deficits, and needs. Activity progression based on professional judgement. Billing Self-Care/Home Management Treatment Minutes: 25 Skilled Treatment Time Minutes (timed and untimed codes): 25 Total Session Time (minutes): 25 Session Start Time : 831 Session Stop Time : 08 Alexsander Mayfield PT documented in this encounter [facility] 06-22-2024 Telephone encounter Note OB to patient. patient and advised of Amarilis appt cancellation (08/03). Patient advised will call [place] location to reschedule. [facility] 06-22-2024 Miscellaneous Notes OB to patient. Sw patient and advised of Amar[facility] appt cancellation (08/03). Patient advised will call [place] location to reschedule. documented in this encounter [facility] 06-15-2024 History of Present illness Narrative Images from the original note were not included. [facility] DEPART[facility]UL[facility]ARY [facility]ICINE ESTABLISHED PATIENT OFFICE VISIT 06/15/2024 Patient Name: Katelynn Campuzano PRIMARY CARE PHYSICIAN: Cholo Soriano MD CHIEF COMPLAINT: Lung nodules. Past medical history is also significant for hypothyroidism, hypertension, GERD, Paroxysmal atrial fibrillation, . Never smoker HISTORY OF PRESENT ILLNESS: Since the last visit with me on 04/2023, Ms. Campuzano has been doing well. No recent hospitalizations, ER visits or steroids use. No complaints today. Had basal cell carcinoma on the nose and has not been able to use cpap for 6 weeks Not using any inhalers Not ambulating much- using a cane Noted episodes of bronchospasm ? 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 New [address] chest 05/2024 new 4 mm RLL had resolved. Other nodules stable Spirometry 2020 normal- including normal [facility] loop Social History Tobacco Use Smoking status: Never Smokeless tobacco: Never Vaping Use Vaping Use: Never used Substance Use Topics Alcohol use: Never Drug use: No ALLERGIES ALLERGIES Allergen Reactions Sulfa (Sulfonamide * Hives Penicillins Unknown CURRENT OUTPATIENT MEDICATIONS hydroCHLOROthiazide 25 mg tablet Take 1 tablet by mouth once daily. levothyroxine (SYNTHROID) 25 mcg tablet Take 1 tablet by mouth daily before breakfast. allopurinol (ZYLOPRIM) 300 mg tablet Take 1 tablet by mouth two times a day. flecainide (TAMBOCOR) 100 mg tablet TAKE 1 TABLET BY MOUTH EVERY 12 HOURS (DOSE INCREASE) cyanocobalamin (VITAMIN B-12) 1,000 mcg tab Take [...] 12.5 mg by mouth every 12 hours. WALKER ROLLATOR SEAT WITH 6 WHEELS - RED R26.89 and R29.6 REVIEW OF SYSTEMS Review of Systems Constitutional: Negative for chills, fever and weight loss. Respiratory: Negative for cough, hemoptysis, sputum production, shortness of breath and wheezing. The remainder of review of systems was negative. PHYSICAL EXAMINATION: BP 115/72 Pulse 56 Wt 257 lb 4.4 oz (116.7kg) SpO2 98% General appearance: Well appearing, alert, in no acute distress, well-hydrated, well nourished. Oropharynx: Lips, mucosa, and tongue normal, teeth and gums normal, oropharynx normal Lungs: Lungs clear to auscultation. No wheezing, rhonchi, rales Heart: RRR without murmur, gallop, or rubs. No ectopy. No edema. Peripheral pulses: Normal Abdomen: Normal abdominal exam, Abdomen soft, non-tender. Bowel sounds normal. No masses, organomegaly Extremities: Normal, Warm, and No cyanosis, no clubbing, Nontender Neuro: no focal deficit Psychiatry: Alert, oriented x3 DATA: Diagnostic tests reviewed and analysed for today's visit, including films and specimens, were personally reviewed by me Most recent labs and imaging results. No results found. CT CHEST WO IVCON Result Date: 05/26/2024 IMPRESSION: Please note that the nodule described as new medial right lower lobe on the prior examination has resolved interval. Other subcentimeter pulmonary nodules are stable. No new pulmonary nodule is identified. Regions of atelectasis and/or scarring are incidentally noted within both lungs. No naveen lymphadenopathy is seen within the chest. Crystal Slicer: [facility] Transcribe Date/Time: May 26 2024 4:03P Dictated by : ALISSA SHERMAN MD This examination was interpreted and the report reviewed and electronically signed by: ALISSA SHERMAN MD on May 26 2024 4:11PM EST Immunizations: Up to date IMPRESSION: 1. [...] 04/2023: stable nodules New 4mm RLL nodule Ct chest 05/2024 Ct chest 05/2024 new 4 mm RLL had resolved. Other nodules stable since 2017 Lung scarring/atelectasis 2. 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 Morbid Obesity, BMI 40 4. pulmonary hypertension RSVP 35 mmHg on ECHO from 2019. Likely due to sleep apnea Repeat echo 5. Atelectasis Patient provided incentive spirometer 6. Bronchospasm Trial of albuterol Natalia Wood MD, DEE Staff, Respiratory [place] [facility] documented in this encounter [facility] 06-08-2024 Miscellaneous Notes Order placed to get thyroid US on or after 08/01/2024 documented in this encounter [facility] 06-08-2024 Telephone encounter Note Order placed to get thyroid US on or after 08/01/2024 [facility] 05-23-2024 History of Present illness Narrative Radiology Service Progress Note PATIENT NAME: Katelynn Campuzano DATE OF SERVICE: May 23, 2024 TIME: 2:55 PM PATIENT IDENTITY VERIFICATION COMPLETED USING TWO (2) IDENTIFIERS: Name and Date of confirmed by patient verbally. FALL SCREENING: Has the patient had 2 falls in the last year or 1 fall with injury or currently using an Ambulatory Assistive Device (Walker, Cane, Wheelchair, Crutches, etc.)? No PATIENT GENDER DATA: Female. status: : No status: NO. PATIENT RELEVANT IMPLANT DATA REVIEWED: Yes PATIENT PRESENTS WITH AN IMPLANTABLE OR ATTACHED COMMERCIAL MAKEUP ARTIST: No RADIOLOGY DEPARTMENT: CT; Exam(s) Completed: Chest PERIPHERAL IV DATA: Not applicable SIGNED BY: RT Sona(R) May 23, 2024 2:55 PM documented in this encounter [facility] 05-06-2024 Instructions Cholo Soriano MD - 05/06/2024 8:13 AM EDT Please get labs done on or after 10/21/2024 prior to your next visit. Screening schedule The following prevention plan is recommended: Advance Directive Discussion due on 11/23/2023 Covid-19 Vaccine() due on 01/09/2024 BP Controlled (<130/80) due on 04/24/2024 Colorectal Cancer Screening due on 04/11/2024 WHAT YOU CAN DO TO PREVENT FALLS Many falls can be prevented. By making some changes, you can lower your chances of falling. Four things YOU can do to prevent falls for you* and your caregiver 1. Begin a regular exercise program Exercise is one of the most important ways to lower your chances of falling. It makes you stronger and helps you feel better. Exercises that improve balance and coordination (like Fernando Chi) are the most helpful. Lack of exercise leads to weakness and increases your chances of falling. Ask your doctor or health care provider about the best type of exercise program for you. 2. Have your health care provider review your medicines Have your doctor or pharmacist review all the medicines you take, even nrex-vpm-fqhfvda medicines. As you get older, the way medicines work in your body can change. Some medicines, or combinations of medicines, can make you sleepy or dizzy and can cause you to fall. 3. Have your vision checked Have your eyes checked by an eye doctor at least once a year. You may be wearing the wrong glasses or have a condition like glaucoma or cataracts that limits your vision. Poor vision can increase your chances of falling. 4. Make your home safer About half of all falls happen at home. To make your home safer: Remove things you can trip over (like papers, books, clothes, and shoes) from stairs and places where you walk. Remove small throw rugs or use double-sided tape to keep the rugs from slipping. Keep items you use often in cabinets you can reach easily without using a step stool. Have grab bars put in next to your toilet and in the tub or shower. Use non-slip mats in the bathtub and on shower floors. Improve the lighting in your home. As you get older, you need brighter lights to see well. Hang light-weight curtains or shades to reduce glare. Have handrails and lights put in on all staircases. Wear shoes both inside and outside the house. Avoid going barefoot or wearing slippers. For more information, contact: Centers for Disease Control and Prevention www.cdc.gov/injury * This information may not apply if you have certain medical conditions. documented in this encounter [facility] 05-06-2024 History of Present illness Narrative Katelynn Campuzano is a 74 year old female here for a Medicare wellness visit. Medicare Health Risk Assessment General Health Fair Exercise: Minutes/Day 40 min Exercise: Days/Week 5 days Alcohol: Daily Use Never Alcohol: Drinks/Day Patient does not drink Alcohol: 6 or more drinks Never Feel off balance Yes Concerns: Teeth/Dentures No Concerns: Sexual function No Troubled by feelings Irritable Frequency: Eating healthy diet Several days ADLs requiring help None of the above Safety precautions in home/vehicle Yes Smoke, vape, chews tobacco No Difficulty hearing Yes Difficulty seeing No Current Providers Specialists: I have reviewed specialist-related care of the patient in the medical record. Current care team: Patient Care Team: Cholo Soriano MD as PCP - General (Family Medicine) Akhil Muñoz MD as Referring (Cardiology) Chaparro Kothari MD as Primary Staff Physician (Cardiology: EPS) Dr. Wood (Pulm) Dr. Mehta (Sleep Med) Dr. Ashley (Gen Surg: Thyroid and colon) Medical/Family history review Reviewed and updated problem list, medical/surgical/family/social history, medications, and allergies. Opioid use review Opioid Medications (last 90 days) No data to display Anxiety/Depression screening Depression Screening PHQ-2 Score 05/06/2024 0 Depression screening tool completed and reviewed. Based on score and interview, patient is not at risk for depression. Screening tool discussed with patient, and I recommended no further intervention at this time. Cognitive screening Score: 4 Cognitive screening reviewed and No further action needed (score 3-5). Functional Observation Was the patient's Timed Up & Go test unsteady or ? 12 seconds? No Advance Care Planning Surrogate decision maker documented and/or advance directives scanned in chart Measurements BP 118/64 Pulse 60 Resp 16 Ht 5' 8 (1.73m) Wt 258 lb (117.0kg) BMI 39.24 kg/(m^2). Vision Screening: Follows with optometry/ophthalmology Assessment/Plan Medicare annual wellness visit, subsequent (Z00.00) - Counseled on healthy diet and regular exercise - Fall avoidance information provided - Personalized prevention plan provided See Below Chief Complaint Patient presents with: Medicare Wellness Exam HPI Katelynn Campuzano is a 74 year old female who presents here today for Chronic Medical Conditions. and Medicare Annual Visit. Patient with Hx hypothyroidism, HTN, GERD, hyperlipidemia, A. Fib, ROZ on CPAP, Hx of lung nodules, obesity, Hx of colon polyps, arthritis, osteopenia as well as those reviewed and addressed below and in ROS. Patient indicated that she just had a left shoulder injections. Patient also has DERM - for foot funus Also had a MOHS (3 deep) Patient indicated that when she has had a MRI's she gets emotional and nieves and then it cuts off her breathing. Is there something she can take. Patient also had falls in 09/2023, 11/2023, 01/2024 Past medical history, appointments, medications, allergies reviewed. Previous Medical History PAST MEDICAL HISTORY Diagnosis Date Acquired hypothyroidism 07/16/2016 Continue home Levothyroxine dose. 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 - discussed with the ENT team, r Osteopenia Paroxysmal atrial fibrillation (HCC) Personal history of colonic polyps Colon polyps S/P ablation of atrial fibrillation 06/24/2017 Date of procedure 06/23/17. Indication: persistent atrial fibrillation. - restart anticoagulation on Thursday06/29/2017 SEC HYPERPARATHYROID, NON-RENAL 09/02/2005 Situational depression 06/07/2014 Skin cancer of nose 10/21/2023 basal cell Tuberculin test reaction Unspecified hemorrhoids without mention [...] CATH,PERCUTANEOUS LIG/TRNSXJ FLP TUBE ABDL/VAG APPR UNI/BI MOHS HEAD/NECK STAGE 1 <=5 PAST SURGICAL HISTORY OF cataracts bilateral PAST [...] File Prior to Visit Medication Sig hydroCHLOROthiazide 25 mg tablet Take 1 tablet by mouth once daily. allopurinol (ZYLOPRIM) 300 mg tablet Take 1 tablet by mouth two times a day. levothyroxine (SYNTHROID) 25 mcg tablet Take 1 tablet by mouth daily before breakfast. flecainide (TAMBOCOR) 100 mg tablet TAKE 1 TABLET BY MOUTH EVERY 12 HOURS (DOSE INCREASE) cyanocobalamin (VITAMIN B-12) 1,000 mcg tab Take [...] 0.5 tablets by mouth twice daily. (Patient not taking: Reported on 10/28/2023) acetaminophen (TYLENOL) 500 mg tablet Take 1,000 [...] no nose bleeds or other nasal problems. Has seen Audiology and was advised on hearing aids. Patient holding off for now. NECK: Negative for lumps, goiter, pain and significant neck swelling RESPIRATORY: Negative for cough, hemoptysis, wheezing, COPD, dyspnea or shortness of breath. CARDIOVASCULAR: Negative for chest pain, leg swelling, hypertension, CHF or palpitations GI: No nausea, vomiting, or diarrhea, No heartburn or reflux symptoms, and no blood : No history of dysuria, frequency or blood MUSCULOSKELETAL: having left shoulder pain and seeing ortho SKIN: seeing Derm PSYCH: Negative for sleep disturbance, mood disorder and recent psychosocial stressors HEMATOLOGY/LYMPHOLOGY: Negative for prolonged bleeding, bruising easily or swollen nodes ENDOCRINE: Negative for cold or heat intolerance, polyuria, polydipsia and goiter NEURO: No history of headaches, syncope, paralysis, seizures or tremors EXAM: BP 118/64 (BP Site: Left Arm, BP Position: Sitting, BP Cuff Size: Large Adult) Pulse 60 Resp 16 Ht 172.7 cm (5' 8) Wt 117 kg (258 lb) BMI 39.23 kg/m Last 5 Encounter Wt Readings: Date: Wt: 05/06/2024 117 kg (258 lb) 02/10/2024 117.5 kg (259 lb) 02/06/2024 117.7 kg (259 lb 7.7 oz) 01/11/2024 117 kg (258 lb) 10/26/2023 116.9 kg (257 lb 12.8 oz) General Appearance: Well appearing, alert, in no acute distress, well-hydrated, well nourished. and Obese. Skin: sees Derm. Head: Normocephalic, no masses, lesions, tenderness or abnormalities. Eyes: Anicteric sclera. Pupils are equally round and reactive to light. Extraocular movements are intact. . Ears: External ears and TM's normal, canals clear. Nose/Sinuses: Nares normal, [...] skin discoloration, Good capillary refill. . Musculoskeletal: Spine range of motion normal. Muscular strength intact, No joint swelling, deformity, or tenderness. Peripheral Pulses: Normal. Neurologic: Gait normal. Reflexes normal and symmetric. Sensation to light touch and crainal nerves 2-12 intact.. Health Maintenance List Advance Directive Discussion due on 11/23/2023 Covid-19 Vaccine(2022- season) due on 01/09/2024 BP Controlled (<130/80) due on 04/24/2024 Colorectal Cancer Screening due on 04/11/2024 Annual PCP Team Chronic Disease Visit due on 02/09/2025 Diabetes Screening due on 04/26/2027 Lipid Screening due on 04/26/2029 DTaP,Tdap,Td Vaccine(6 - Td or Tdap) due on 09/02/2032 Bone Density Screening Completed Influenza Vaccine Completed RSV Vaccine Completed Hepatitis C Screening Completed Shingrix Vaccine Completed Pneumococcal Vaccine: 65+ Completed Mammogram Screening Discontinued Data reviewed Latest Ref Rng 04/14/2023 10/13/2023 04/26/2024 WBC 3.70 - 11.00 k/uL 7.87 6.15 RBC 3.90 - 5.20 m/uL 4.00 3.98 Hemoglobin 11.5 - 15.5 g/dL 12.2 12.1 Hematocrit 36.0 - 46.0 % 38.2 36.8 MCV 80.0 - 100.0 fL 95.5 92.5 MCH 26.0 - 34.0 pg 30.5 30.4 MCHC 30.5 - 36.0 g/dL 31.9 32.9 RDW-CV 11.5 - 15.0 % 13.4 13.5 Platelet Count 150 - 400 k/uL 285 245 MPV 9.0 - 12.7 fL 11.1 10.2 Neut% % 59.2 61.4 Abs Neut (ANC) 1.45 - 7.50 k/uL 4.67 3.78 Lymph% % 31.3 28.1 Abs Lymph 1.00 - 4.00 k/uL 2.46 1.73 Redwood% % 6.4 7.5 Abs Redwood <0.87 k/uL 0.50 0.46 Eosin% % 1.8 1.8 Abs Eosin <0.46 k/uL 0.14 0.11 Baso% % 0.9 0.7 Abs Baso <0.11 k/uL 0.07 0.04 Immature Gran % % 0.4 0.5 IMMATURE GRANS (ABS) <0.10 k/uL 0.03 0.03 NRBC /100 WBC 0.0 0.0 Absolute nRBC <0.01 k/uL <0.01 <0.01 DTYPE Auto Auto Color Yellow Light Yellow Yellow Clarity Clear Clear Clear Glucose, Urine Negative Negative Negative Bilirubin, Urine Negative Negative Negative Ketones, Urine Negative Negative Negative Specific Trimble, Ur 1.005 - 1.030 1.021 1.013 Hemoglobin/Blood,Ur Negative Negative Negative pH, Urine <8.5 6.0 6.5 Protein, Urine Negative Trace Negative Urobilinogen 0.2-1.0 EU/dL Negative 0.2 EU/dL Nitrites Negative Negative Negative Leukest Negative Negative Trace ! WBC, Urine 0-5 /HPF 0-5 /HPF 0-5 /HPF RBC, Urine 0-2 /HPF 0-3 /HPF 3-5 /HPF ! Bacteria Negative /HPF Negative Epithelial Cells /HPF Few Few Hyaline Cast 0 /LPF 0 /LPF Protein, Total 6.3 - 8.0 g/dL 7.2 7.1 Albumin 3.9 - 4.9 g/dL 4.4 4.4 Calcium 8.5 - 10.2 mg/dL 10.0 9.3 10.2 Bilirubin, Total 0.2 - 1.3 mg/dL 0.8 1.4 (H) Alkaline Phosphatase 34 - 123 U/L 103 109 AST 13 - 35 U/L 27 15 ALT 7 - 38 U/L 15 9 Glucose 74 - 99 mg/dL 78 104 (H) 97 BUN 7 - 21 mg/dL 19 21 21 Creatinine 0.58 - 0.96 mg/dL 0.80 0.83 0.78 Sodium 136 - 144 mmol/L 141 138 135 (L) Potassium 3.7 - 5.1 mmol/L 4.7 3.8 4.2 Chloride 98 - 107 mmol/L 103 103 100 CO2 22 - 30 mmol/L 20 (L) 28 27 Anion Gap 8 - 15 mmol/L 18 7 (L) 8 eGFR >=60 mL/min/1.73m 77 74 79 Non-Squamous Epithelial Cells None Seen /HPF Few ! Total Cholesterol, Nonfasting <200 mg/dL 179 169 186 Triglycerides, Nonfasting <150 mg/dL 204 (H) 202 (H) 248 (H) HDL Cholesterol, Nonfasting >39 mg/dL 35 (L) 36 (L) 33 (L) LDL Cholesterol, Nonfasting <100 mg/dL 103 (H) 93 103 (H) Non HDL Cholesterol, Nonfasting <130 mg/dL 144 (H) 133 (H) 153 (H) VLDL Cholesterol, Nonfasting <30 mg/dL 41 (H) 40 (H) 50 (H) Total Chol/HDL Ratio, Nonfasting <5.10 mg/dL 5.11 (H) 4.69 5.64 (H) LDL/HDL Ratio, Nonfasting <2.54 mg/dL 2.94 (H) 2.58 (H) 3.12 (H) Vitamin B12 232 - 1,245 pg/mL 762 1,029 TSH 0.270 - 4.200 mIU/L 2.110 2.560 2.500 Uric Acid 2.5 - 6.6 mg/dL 3.4 3.8 A/P ASSESSMENT/PLAN: 1. Medicare annual wellness visit, subsequent - ICD9: V70.0, ICD10: Z00.00 (primary diagnosis) - Counseled on healthy diet and regular exercise - Patient was counseled [id number] by myself (the billing provider) for the following immunizations and vaccine components, including side effects: COVID-19. Patient consents for immunization and understands risks and benefits. A VIS sheet on each immunization was given to the patient. - Follow up for annual exam in one year 2. Essential hypertension - ICD9: 401.9, ICD10: I10 - Controlled - Continue current medications - Recommend home blood pressure monitoring, to bring results to next visit - Encouraged sodium restriction, DASH or Mediterranean diet - Recommend regular aerobic exercise - Discussed need for and benefit of weight loss. BMI 39.23 kg/(m^2) 3. Hyperlipidemia, mixed - ICD9: 272.2, ICD10: E78.2 - Controlled - Counseled on healthy diet and regular exercise - Discussed need for and benefit of weight loss. BMI 39.23 kg/(m^2) 4. Acquired hypothyroidism - ICD9: 244.9, ICD10: E03.9 - Instructed patient on importance of taking on an empty stomach either first thing in the morning or at bedtime. - continue current dose of Synthroid - LEVOTHYROXINE 25 MCG TABLET 5. Thyroid nodule - ICD9: 241.0, ICD10: E04.1 - sees Gen surgery for management 6. GERD without esophagitis - ICD9: 530.81, ICD10: K21.9 - managed per diet. 7. Hyperparathyroidism (HCC) - ICD9: 252.00, ICD10: E21.3 - calcium level was normal. 8. Paroxysmal atrial fibrillation (HCC) - ICD9: 427.31, ICD10: I48.0 - on medication managed per cardio 9. Situational depression - ICD9: 309.0, ICD10: F43.21 - stable off medication. 10. Hyperuricemia - ICD9: 790.6, ICD10: E79.0 - controlled with Allopurinol. 11. Pulmonary hypertension (HCC) - ICD9: 416.8, ICD10: I27.20 _ seeing Pulmonary. 12. Low serum vitamin B12 - ICD9: 266.2, ICD10: E53.8 - controlled with replacement 13. Obesity, Class II, BMI 35-39.9 - ICD9: 278.00, ICD10: E66.9 - wt stable. Patient to work on weight loss. 14. Advance directive discussed with patient - ICD9: V65.49, ICD10: Z71.89 - up to date 15. Balance problems - ICD9: 781.99, ICD10: R26.89 - order given for Faith. Advised patient that if she continues to have balance problems after PHYSICAL THERAPY she needs to consider starting to use a walker. 16. Multiple falls - ICD9: V15.88, ICD10: R29.6 - as per #15 17. Encounter for immunization - ICD9: V03.89, ICD10: Z23 - [employer] COVID-19 VACCINE ( SEASON) AGE 12+ YR: given 18. Skin cancer screening - ICD9: V76.43, ICD10: Z12.83 - seeing Derm Advised patient she could be prescribed Ativan/xanax or hydroxyzine prior to her MRI's when needed to help lesson what sounds like a phobia. F/u 6 months routine check lipid, TSH and BMP prior I spent a total of 40 minutes on the date of the service which included preparing to see the patient, [id number] patient care, completing clinical documentation, performing a medically appropriate examination, counseling and educating the patient/family/caregiver and ordering medications, tests, or procedures. Patient was asked at end of visit if they had any questions or input regarding the plan of care we had discussed. Cholo Soriano MD Behavioral Health Screening PHQ-2 Score: 0 (Lower risk for depression) Recommendation: no further intervention at this time documented in this encounter [facility] 05-03-2024 History of Present illness Narrative Associated Order(s): Large Joint Arthro/Inj: L subacromial bursa Post-Procedure Diagnose(s): Glenohumeral arthritis, left Zoey Chawla PA-C Department of Orthopaedics Orthopaedics [address] [place] [id number] Dept: [phone] May 03, 2024 CHIEF COMPLAINT: Follow Up, Pain, and Injections of the Left Shoulder. ASSESSMENT: M19.012 Glenohumeral arthritis, left (primary encounter diagnosis) W19.XXXA Fall, initial encounter M25.531 Pain in right wrist SUMMARY/PLAN: Patient presents requesting a repeat left shoulder corticosteroid injection, her last shoulder injection was helpful for a little over 3 months. Range of motion was also much better. Pain today is a 6 out of 10 deep aching in the shoulder. Will go ahead and proceed with a repeat injection today, she is requesting the contact information for one of our shoulder surgeons in the she is interested in surgical intervention for her arthritis. She had a fall several months ago, had some right wrist pain and x-ray with a questionable scaphoid fracture. I did order an MRI for confirmation. She tells me she did not have the testing done as she has extreme anxiety related to the MRI. I did offer to get a repeat x-ray just for further evaluation. We discussed that some of her pain in her hand could be related to arthritis in her thumb. She believes that the right wrist and hand are much improved and would not like to proceed with repeat x-ray or further evaluation today. In addition to the comprehensive evaluation, assessment and plan outlined above, and as a distinct and separate element to the visit today, separate from the separate complaint of right wist pain , we have made the determination to proceed with an injection to aid in the management of the patient's condition. We discussed the risks, benefits, alternatives and expected outcomes of this injection in detail, and the patient agreed to proceed. The procedure was performed as detailed below. Large Joint Arthro/Inj: L subacromial bursa Informed Consent Consent Obtained: Verbal Dalton Protocol A moment to CARE was completed. SIGN IN Sign in communication not applicable due to emergent procedure. Personnel directly involved with the procedure wore the appropriate PPE. Special Equipment: N/A Patient/Surrogate Stated/Verified: Patient name, Date of , Relevant allergies and Intended procedure TIME OUT Intended patient and procedure match the source document(s). Consent documented and matches the intended procedure. Relevant labs, photos, and/or imaging studies have been reviewed. Correct side/site marked and visible. Medications required for procedure verified. No fire risk assessment and interventions applicable. No implant(s) inserted. 05/03/2024 2:46 PM The procedure site was prepped in the usual sterile fashion. Site: L subacromial bursa Medications: 6 mg betamethasone acetate-betamethasone sodium phosphate 6 mg/mL Anesthetics: 4 mL lidocaine (PF) 10 mg/mL (1 %) Outcome: Tolerated well, no immediate complications Post-injection instructions were reviewed with the patient and the patient voiced understanding of these instructions. Ms. Katelynn Campuzano was advised as to contrast therapies and/or to take analgesics/anti-inflammatories as needed and all contraindications were reviewed. Supporting Information Below: Medications: Current Outpatient Medications Medication Sig hydroCHLOROthiazide 25 mg tablet Take 1 tablet by mouth once daily. allopurinol (ZYLOPRIM) 300 mg tablet Take 1 tablet by mouth two times a day. levothyroxine (SYNTHROID) 25 mcg tablet Take 1 tablet by mouth daily before breakfast. flecainide (TAMBOCOR) 100 mg tablet TAKE 1 TABLET BY MOUTH EVERY 12 HOURS (DOSE INCREASE) cyanocobalamin (VITAMIN B-12) 1,000 mcg tab Take [...] 0.5 tablets by mouth twice daily. (Patient not taking: Reported on 10/28/2023) No current facility-administered medications for this visit. Allergies: Sulfa (Sulfonamide Antibiotics) and Penicillins This note was partially generated using [employer] voice recognition system, and there may be some incorrect words, spellings, and punctuation that were not noted in checking the note before saving. Zoey Chawla PA-C documented in this encounter [facility] 05-02-2024 History of Present illness Narrative Images from the original note were not included. Episode Visit Count: 6 Therapist That Will Accept/Oversee The Plan Of Care: Alexsander Mayfield PT Start of Care Date: 02/26/24 Onset Date: 03/11/23 Plan of Care Certification Date: 05/02/24 Next Certification Due Date: 07/07/24 Patient Identified by Name and Date of : Yes REHABILITATION AND SPORTS THERAPY PHYSICAL THERAPY PROGRESS REPORT PLAN OF CARE UPDATE: Assessment: Katelynn Campuzano demonstrates difficulty with walking and improvements in LE strength and level of independence with the HEP. She has progressed toward goals. Patient continues to present with impairments in ADL's, balance, gait, and strength that interfere with walking . Current prognosis is Good due to: current objective clinical presentation, good overall health status . She will benefit from continued skilled therapy services to meet the updated goals for this plan of care as noted below. Goals updated 03/31/2024 Goals for Episode of Care: created on 02/26/24 through 05/20/24 Patient will report no falls. - Met so far Increase strength of B hip musculature to 4/5 via MMT in order to improve gait quality. - Progressing, will continue Pt will demonstrate safe use of a Rolator within 4 weeks to improve gait quality and improve balance with ambulation (pt needs to acquire a Rolator first) Patient Goals: Improve her balance Patient Goals: Improve her balance Planned Interventions, Frequency, and Duration: 1 visit, Two months Total Number of Visits Planned: 1 Patient to be seen for Therapeutic exercise (21419), Neuromuscular re-education (68418), Manual therapy (86002), Therapeutic activities (62700), Self-alf management (00536), Gait Training (16194), Patient/Family/Caregiver Education PLAN FOR NEXT VISIT: Re-assess hip strength and gait. PRogress hip abductor exercises. SUBJECTIVE: Needs to cut down on some of her medical appointments because she is so busy. The cane helps with her balance. Patient Goals: Improve her balance Functional Limitations: walking Prior Level of Function: Independent without limitations Intake Information: Prescription present Previous Treatment: None Falls Interview: Two or more falls in the last year, Fall with injury in the last year Pain: Pain Pain Level: 0 Pain Location: Hip - Right PROMIS Scales 05/01/2024 04/12/2024 03/29/2024 Higher is Better Phys Func - Score 35 (moderate dysfunction) Phys Func - Percentile 7 Self-Eff Symptom - Score 41 (Average) 46 (Average) Self-Eff Symptom - Percentile 18 34 T-scores: mean of general population = 50. 5 points is clinically meaningfully difference Percentiles provide an indication of how the patient's score ranks in relation to the general population. Higher percentile rankings indicate better function/quality of life. 50th percentile is the average of the general population and indicates half of respondents had a worse score. OBJECTIVE MEASURES WITH LEVEL OF FUNCTION: LE AROM R LE AROM: WFL L LE AROM: WFL LE Strength R Hip ABduction: 2+/5 R Hip External Rotation: 3+/5 L Hip ABduction: 2+/5 L Hip External Rotation: 3+/5 Functional Strength Trendelenburg: Right Positive, Left Positive Gait Gait: Modified Independent Gait Distance (feet): 50 Gait Device: Cane Gait Deviations: General Deviations General Deviations/Observations: Scissoring of LEs, Antalgic gait, Lateral sway increased TREATMENT: Therapeutic Exercise: 1: All objective measures taken 2: Resisted side-stepping pink TB to fatigue x 2 Skilled Intervention: Patient was educated in proper exercise technique and purpose for exercises. Correct performance of therapeutic exercises was facilitated with verbal and visual cuing. Billing Therapeutic Exercise Treatment Minutes: 25 Skilled Treatment Time Minutes (timed and untimed codes): 25 Total Session Time (minutes): 25 Session Start Time : 824 Session Stop Time : 849 Alexsander Mayfield PT documented in this encounter [facility] 04-15-2024 History of Present illness Narrative Episode Visit Count: 5 Therapist That Will Accept/Oversee The Plan Of Care: Alexsander Mayfield PT Start of Care Date: 02/26/24 Onset Date: 03/11/23 Plan of Care Certification Date: 03/31/24 Next Certification Due Date: 05/05/24 Patient Identified by Name and Date of : Yes REHABILITATION AND SPORTS THERAPY PHYSICAL THERAPY TREATMENT NOTE ASSESSMENT: Katelynn Campuzano tolerated the session with fatigue. She demonstrated 1 LOB during today's balance training that was self corrected. The patient will continue to benefit from ongoing skilled physical therapy to progress toward set goals and for reassessment by supervising therapist. PLAN FOR NEXT VISIT: PN SUBJECTIVE: Doing the exercises. Less of the pool exercising lately. Trying to stick with the exercises as much as she can. But sometimes she forgets to do the HEP. Pain: Pain Pain Level: 0 Pain Location: Hip - Right OBJECTIVE MEASURES WITH LEVEL OF FUNCTION: TREATMENT: Therapeutic Exercise: 1: Resisted side-stepping [address] x 3 Skilled Intervention: Patient was educated in proper exercise technique and purpose for exercises. Skilled judgment was used in selection of appropriate interventions. Neuromuscular Re-Education: 1: NBOS eyes closed x 45 sec 2: Partial tandem stance 4 x 30 sec 3: Tandem stance 4 x 30 sec 4: NBOS on pad x 30 sec 5: Partial tandem stance on pad x 45 sec Skilled Intervention: Ensured patient safety with use of SBA Billing Therapeutic Exercise Treatment Minutes: 6 Neuromuscular Re-Education Treatment Minutes: 32 Skilled Treatment Time Minutes (timed and untimed codes): 38 Total Session Time (minutes): 38 Session Start Time : 753 Session Stop Time : 831 Alexsander Mayfield PT documented in this encounter [facility] 03-31-2024 History of Present illness Narrative Program_ID:[id number] Access Code: [email or web address] URL: [email or web address] Date: 03-31-2024 Prepared By: Alexsander Mayfield Program Notes Exercises - Standing Romberg to 1/2 Tandem Stance - 1 x daily - 7 x weekly - 4 sets - reps - Side Stepping with Resistance at Feet - 1 x daily - 7 x weekly - 4 sets - reps - Clamshell with Resistance - 1 x daily - 7 x weekly - 4 sets - 10 reps - Clamshell with Resistance - 1 x daily - 7 x weekly - 4 sets - 10 reps - Supine Bridge - 1 x daily - 7 x weekly - 4 sets - 10 reps - Squat - 1 x daily - 7 x weekly - 4 sets - 10 reps Images from the original note were not included. Episode Visit Count: 4 Therapist That Will Accept/Oversee The Plan Of Care: Alexsander Mayfield PT Start of Care Date: 02/26/24 Onset Date: 03/11/23 Plan of Care Certification Date: 03/31/24 Next Certification Due Date: 05/05/24 Patient Identified by Name and Date of : Yes REHABILITATION AND SPORTS THERAPY PHYSICAL THERAPY PROGRESS REPORT PLAN OF CARE UPDATE: Assessment: Katelynn Campuzano demonstrates difficulty with walking, walking in the community, and physical activities. She has progressed toward goals. Patient continues to present with impairments in balance, gait, independence in exercise, overall function, and strength that interfere with walking . Current prognosis is Good due to: current objective clinical presentation, good overall health status . She will benefit from continued skilled therapy services to meet the updated goals for this plan of care as noted below. Goals updated 03/31/2024 Goals for Episode of Care: created on 02/26/24 through 05/20/24 Patient will report no falls. - Met so far Increase strength of B hip musculature to 4/5 via MMT in order to improve gait quality. - Progressing, will continue Pt will demonstrate safe use of a Rolator within 4 weeks to improve gait quality and improve balance with ambulation (pt needs to acquire a Rolator first) Patient Goals: Improve her balance Patient Goals: Improve her balance Planned Interventions, Frequency, and Duration: 1x every other week, 4 weeks Total Number of Visits Planned: 2 Patient to be seen for Therapeutic exercise (21928), Neuromuscular re-education (64491), Manual therapy (20636), Therapeutic activities (50242), Self-alf management (13547), Gait Training (42389), Patient/Family/Caregiver Education PLAN FOR NEXT VISIT: Hip strengthening and balance training at parallel bars. SUBJECTIVE: Working in the pool and other exercises as well as the HEP. Was very insecure before starting therapy with walking. She feels more confident now. Uses a cane from time to time. Patient Goals: Improve her balance Functional Limitations: walking Prior Level of Function: Independent without limitations Intake Information: Prescription present Previous Treatment: None Falls Interview: Two or more falls in the last year, Fall with injury in the last year Pain: Pain Pain Level: 0 Pain Location: Hip - Right PROMIS Scales 03/29/2024 03/09/2024 02/24/2024 Higher is Better Phys Func - Score 35 (moderate dysfunction) Phys Func - Percentile 7 Self-Eff Symptom - Score 46 (Average) 42 (Average) Self-Eff Symptom - Percentile 34 21 T-scores: mean of general population = 50. 5 points is clinically meaningfully difference Percentiles provide an indication of how the patient's score ranks in relation to the general population. Higher percentile rankings indicate better function/quality of life. 50th percentile is the average of the general population and indicates half of respondents had a worse score. OBJECTIVE MEASURES WITH LEVEL OF FUNCTION: LE AROM R LE AROM: WFL L LE AROM: WFL LE Strength R Hip ABduction: 2+/5 R Hip External Rotation: 3+/5 L Hip ABduction: 2+/5 L Hip External Rotation: 3+/5 Functional Strength Trendelenburg: Right Positive, Left Positive Gait Gait: Modified Independent Gait Distance (feet): 50 Gait Device: Cane Gait Deviations: General Deviations General Deviations/Observations: Scissoring of LEs, Antalgic gait, Lateral sway increased 4 Stage Balance Test Narrow base of support (sec): 30 sec Semi-tandem base of support (sec): 30 sec Tandem base of support (sec): 15 sec Single leg stance - right (sec): (Not tested) Single leg stance - left (sec): (Not tested) TREATMENT: Therapeutic Exercise: 1: All objective measures taken 2: Squats x 10 3: *HEP modified to improve glute strengthen Skilled Intervention: Patient was educated in proper exercise technique and purpose for exercises. Provided written instruction for home exercise program to facilitate proper performance and compliance. Correct performance of therapeutic exercises was facilitated with verbal and visual cuing. Billing Therapeutic Exercise Treatment Minutes: 31 Skilled Treatment Time Minutes (timed and untimed codes): 31 Total Session Time (minutes): 31 Session Start Time : 1001 Session Stop Time : 1032 Alexsander Mayfield PT documented in this encounter [facility] 03-18-2024 History of Present illness Narrative Episode Visit Count: 3 Therapist That Will Accept/Oversee The Plan Of Care: Alexsander Mayfield PT Start of Care Date: 02/26/24 Onset Date: 03/11/23 Plan of Care Certification Date: 02/26/24 Next Certification Due Date: 04/01/24 Patient Identified by Name and Date of : Yes REHABILITATION AND SPORTS THERAPY PHYSICAL THERAPY TREATMENT NOTE ASSESSMENT: Katelynn Campuzano tolerated the session with expected muscle soreness. She demonstrated no back pain with bridging when done with PPT. The patient will continue to benefit from ongoing skilled physical therapy to progress toward set goals. PLAN FOR NEXT VISIT: PN SUBJECTIVE: Feeling tired because of all of the exercises she is doing. She has not fallen. Pt wants to cancel the next appointment and come back a little laterto work on the exercises on her own. Pain: Pain Pain Level: 0 Pain Location: Hip - Right OBJECTIVE MEASURES WITH LEVEL OF FUNCTION: Improved lift off of bridge compared to previous visit TREATMENT: Therapeutic Exercise: 1: Sidelying clam no band 2 x 10 2: PPT x 10 3: PPT into bridge 2 x 10 Skilled Intervention: Patient was educated in proper exercise technique and purpose for exercises. Provided written instruction for home exercise program to facilitate proper performance and compliance. Correct performance of therapeutic exercises was facilitated with verbal and visual cuing. Billing Therapeutic Exercise Treatment Minutes: 27 Skilled Treatment Time Minutes (timed and untimed codes): 27 Total Session Time (minutes): 27 Session Start Time : 847 Session Stop Time : 914 Alexsander Mayfield PT documented in this encounter [facility] 2024 History of Past i llness Narrative Problem Noted Date Diagnosed Date Resolved Date IRB 18-834: [facility] Using [employer] Platform for Chronic Care of Patients with AF after Ablation Procedure- Randomized Study 12/02/2018 05/13/2019 Sciatica of right side 08/11/201701/07 A-fib 06/24/2017 07/06/2017 Lumbar compression fracture 04/15/2017 04/11/2022 Paronychia of finger 05/14/2016 017 Atrial fibrillation, persistent 09/04/2015 12/27/2018 Overview: S/p DCCV Oct 2016 and PV! Jun 23 2017. [id number] risk score: 3. On Flecainide and chronic AC with Rivaroxaban. Plan: Monitor in the CICU Will hold AC for now due to concern for oropharynx bleeding after PVI. Daily ECgs Continue Flecainide F/u EP recs. Vitamin D deficiency 08/17/2013 018 Secondary hyperparathyroidism, non-renal 09/02/2005 01/07/2018 Abdominal pain, left upper quadrant 07/17/2016 Hyperparathyroidism, unspecified 12/22/2006 documented as of this encounter (statuses as of 2024) [facility]04[facility] History of Present illness Narrative* Alexsander Mayfield PT - 2024 11:36 AM EDT Program_ID:[id number] Access Code: [email or web address] URL: [email or web address] Date: 2024 Prepared By: Alexsander Mayfield Program Notes Exercises - Standing Romberg to 1/2 Tandem Stance - 1 x daily - 7 x weekly - 4 sets - reps - Side Stepping with Resistance at Feet - 1 x daily - 7 x weekly - 4 sets - reps - Clamshell with Resistance - 1 x daily - 7 x weekly - 4 sets - 10 reps - Clamshell with Resistance - 1 x daily - 7 x weekly - 4 sets - 10 reps - Supine Bridge - 1 x daily - 7 x weekly - 4 sets - 10 reps * Alexsander Mayfield, PT - 2024 11:01 AM EDT Episode Visit Count: 2 Therapist That Will Accept/Oversee The Plan Of Care: Alexsander Mayfield PT Start of Care Date: 02/26/24 Onset Date: 03/11/23 Plan of Care Certification Date: 02/26/24 Next Certification Due Date: 04/01/24 Patient Identified by Name and Date of : Yes REHABILITATION AND SPORTS THERAPY PHYSICAL THERAPY TREATMENT NOTE ASSESSMENT: Katelynn Campuzano tolerated the session with expected muscle soreness. She demonstrated difficulty with poor gait quality which decreases pt's safety during ambulation. The patient will continue to benefit from ongoing skilled physical therapy to progress toward set goals. PLAN FOR NEXT VISIT: Balance training. Gluteal strengthening. SUBJECTIVE: Some soreness in the leg with the exercise. Pain: Pain Pain Level: 0 Pain Location: Hip - Right OBJECTIVE MEASURES WITH LEVEL OF FUNCTION: LE Strength R Hip External Rotation: 3/5 L Hip External Rotation: 3+/5 4 Stage Balance Test Narrow base of support (sec): 30 sec Semi-tandem base of support (sec): 30 sec Tandem base of support (sec): 15 sec (Moderate sway) Single leg stance - right (sec): 1 sec Single leg stance - left (sec): 4 sec TREATMENT: Therapeutic Exercise: 1: Sidelying clamshell x 10 2: Sidelying clamshell lvl 1 band 3 x 10 each side 3: Hooklying bridge x 10 Skilled Intervention: Patient was educated in proper exercise technique and purpose for exercises. Neuromuscular Re-Education: 1: Partial tandem stance 2 x 30 sec RLE back and then 2 x 30 sec LLE back Skilled Intervention: Skilled judgment used to assess appropriate program for balance and coordination activity. Ensured patient safety with use of gait belt and CGA Billing Therapeutic Exercise Treatment Minutes: 36 Neuromuscular Re-Education Treatment Minutes: 4 Skilled Treatment Time Minutes (timed and untimed codes): 40 Total Session Time (minutes): 40 Session Start Time : 1100 Session Stop Time : 1140 Alexsander Mayfield PT [facility] History of Present illness Narrative* Alexsander Mayfield PT - 02/26/2024 10:09 AM EDT Images from the original note were not included. Episode Visit Count: Visit count could not be calculated. Make sure you are using a visit which is associated with an episode. Therapist That Will Accept/Oversee The Plan Of Care: Alexsander Mayfield PT Start of Care Date: 02/26/24 Plan of Care Certification Date: 02/26/24 Next Certification Due Date: 04/01/24 Patient Identified by Name and Date of : Yes REHABILITATION AND SPORTS THERAPY PHYSICAL THERAPY EVALUATION PLAN OF CARE: Assessment: Katelynn Campuzano presents with chief complaint of falls that interferes with walking . She presents with impairments in ADL's, balance, gait, independence in exercise, overall function, and strength. PROMIS (Patient- Reported Outcomes Measurement Information System) scores were reviewed and identified as a rehabilitation concern. Prognosis for therapy is Good due to: current objective clinical presentation, good overall health status . She will benefit from skilled therapy services to meet the goals established for this plan of care as noted below. Goals for Episode of Care: created on 02/26/24 through 05/20/24 Patient will report no falls. Increase strength of B hip musculature to 4/5 via MMT in order to improve gait quality. Pt will demonstrate safe use of a FWW within 4 weeks to improve gait quality and improve balance with ambulation Patient Goals: Improve her balance Planned Interventions, Frequency, and Duration: Current Frequency: 1x/week Duration: 4 weeks Total Number of Visits Planned: 4 Planned Treatment Interventions: Therapeutic exercise (22404), Neuromuscular re- education (43854), Manual therapy (67355), Therapeutic activities (73858), Self- alf management (99473), Gait Training (01206), Patient/Family/Caregiver Education PLAN FOR NEXT VISIT: Assess 4 stage balance test next session Patient demonstrates good understanding of plan of care and treatment. The above goals and plan of care were discussed and agreed upon by patient/family. SUBJECTIVE: 3 falls in the past year. No vision issues. Did fall and injure her R wrist and it is probably fractured. 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 [facility]. Worried about her ability to get around and that she cannot use her cane because of her fractured hand. Her legs cross in front of eachother when she walks and she reports that she believes she has a difference in her leg length. Patient Goals: Improve her balance Functional Limitations: walking Prior Level of Function: Independent without limitations Intake Information: Prescription present Previous Treatment: None Falls Interview: Two or more falls in the last year, Fall with injury in the last year Falls History # of falls in past year: 3 # of falls resulting in an injury in past year: 1 Pain: Pain Pain Level: 1 Pain Location: Hip - Right PROMIS Scales 02/24/2024 02/10/2024 Higher is Better Phys Func - Score 35 (moderate dysfunction) Phys Func - Percentile 7 Self-Eff Symptom - Score 42 (Average) Self-Eff Symptom - Percentile 21 T-scores: mean of general population = 50. 5 points is clinically meaningfully difference Percentiles provide an indication of how the patient's score ranks in relation to the general population. Higher percentile rankings indicate better function/quality of life. 50th percentile is the average of the general population and indicates half of respondents had a worse score. OBJECTIVE MEASURES WITH LEVEL OF FUNCTION: Observations Appearance: LLE longer than RLE. True leg length discrepency LE AROM R LE AROM: WFL L LE AROM: WFL LE Strength R LE Strength: Grossly 3+/5 L LE Strength: Grossly 3+/5 R Hip Extension: 2/5 R Hip ABduction: 2/5 L Hip Extension: 2/5 L Hip ABduction: 2/5 Functional Strength Trendelenburg: Right Positive, Left Positive Mobility Rolling: Independent Supine To Sit: Independent Sit to Supine: Independent Sit To Stand: Independent Stand To Sit: Independent Bed To Chair: Independent Gait Gait: Stand By Assistance Gait Distance (feet): 50 Gait Device: None Gait Deviations: General Deviations General Deviations/Observations: Scissoring of LEs, Antalgic gait, Lateral sway increased, Loss of Balance Gait Observation: Chorus girl gait noted with excessive foot pronation and leg length discrepency noted Functional Performance Test Results 30 Second Chair Stand Test: 13 reps Pt's demonstrates decreased scissoring of gait when walking with the heel lift in the R shoe. R shoe lift is 5 mm in thickness. Education: Education Learning Preferences: Demonstration, Explanation, Performance, Printed Materials Barriers: None Learning/educational needs: Home exercise program, Plan of Care Education Provided: Yes, see treatment interventions for education provided Education Provided To: Patient Education Mode/Type: Demonstration, Explanation/Discussion, Literature/Printed Materials, Performance Response to Education/Teach Back: States/Identifies, Return Demonstration TREATMENT: PT Treatment Interventions: Therapeutic Exercise, Manual Therapy, Self-Snf Management Evaluation Therapeutic Exercise: 1: Discussed HEP and purpose of the exercises. Discussed current impairments that are causing safety concerns. 2: Standing side-stepping long countertop lvl 1 band to fatigue x 1 each side Skilled Intervention: Patient was educated in proper exercise technique and purpose for exercises. Correct performance of therapeutic exercises was facilitated with verbal and visual cuing. Self-Snf Management: 1: Dsicussed use of heel lift in the R shoe to improve balance and decrease pain in the back. Explained to the pt the proper placement of the heel lift and to wear this at all times. Skilled Intervention: Skilled judgment in the selection of proper modification for activity of daily living/home management based on clinical presentation, deficits, and needs. Billing * Evaluation Low Complexity: 1 Unit Therapeutic Exercise Treatment Minutes: 10 Total Session Time (minutes): 46 Session Start Time : 1009 Session Stop Time : 1055 Alexsander Mayfield PT documented in this encounter[facility] History of Past illness Narrative* Problem Noted Date Diagnosed Date Resolved Date IRB 18-674: [facility] Using [employer] for Chronic Care of Patients with AF after Ablation Procedure- Randomized Study 12/02/2018 05/13/2019 Sciatica of right side 08/11/201701/07 A-fib 06/24/2017 07/06/2017 Lumbar compression fracture 04/15/2017 04/11/2022 Paronychia of finger 05/14/2016 017 Atrial fibrillation, persistent 09/04/2015 12/27/2018 Overview: S/p DCCV Oct 2016 and PV! Jun 23 2017. [id number] risk score: 3. On Flecainide and chronic AC with Rivaroxaban. Plan: Monitor in the CICU Will hold AC for now due to concern for oropharynx bleeding after PVI. Daily ECgs Continue Flecainide F/u EP recs. Vitamin D deficiency 08/17/2013 018 Secondary hyperparathyroidism, non-renal 09/02/2005 01/07/2018 Abdominal pain, left upper quadrant 07/17/2016 Hyperparathyroidism, unspecified 12/22/2006 documented as of this encounter (statuses as of 02/15/2024) [facility]03-[facility] Miscellaneous Notes* Telephone Encounter - Edwin Romo RN - 02/12/2024 9:20 AM EDT Phoned patient and given provider's message below with verbalized understanding. * Telephone Encounter - Cholo Soriaon MD - 02/11/2024 7:56 PM EDT Let patient know she has no broken facial bones. documented in this encounterUniversity [facility]03-[facility]24 History of Present illness Narrative* Shirley Shay, RT(R) - 02/11/2024 3:40 PM EDT Radiology Service Progress Note PATIENT NAME: Katelynn Campuzano DATE OF SERVICE: February 11, 2024 TIME: 4:00 PM PATIENT IDENTITY VERIFICATION COMPLETED USING TWO (2) IDENTIFIERS: Name and Date of confirmedby patient verbally. FALL SCREENING: Has the patient had 2 falls in the last year or 1 fall with injury or currently using an Ambulatory Assistive Device (Walker, Cane, Wheelchair, Crutches, etc.)? No PATIENT GENDER DATA: Female. status: : No status: NO. PATIENT RELEVANT IMPLANT DATA REVIEWED: Not Applicable PATIENT PRESENTS WITH AN IMPLANTABLE OR ATTACHED COMMERCIAL MAKEUP ARTIST: No RADIOLOGY DEPARTMENT: CT; Exam(s) Completed: Face/Mandible PERIPHERAL IV DATA: Not applicable SIGNED BY: RT Sona(R) February 11, 2024 4:00 PM documented in this encounterUniversity [facility]als [facility]03-[facility] History of Past illness Narrative* Problem Noted Date Diagnosed Date Resolved Date IRB 18-444: [facility] Using [employer] Platform for Chronic Care of Patients with AF after Ablation Procedure- Randomized Study 12/02/2018 05/13/2019 Sciatica of right side 08/11/201701/07 A-fib 06/24/2017 07/06/2017 Lumbar compression fracture 04/15/2017 04/11/2022 Paronychia of finger 05/14/2016 017 Atrial fibrillation, persistent 09/04/2015 12/27/2018 Overview: S/p DCCV Oct 2016 and PV! Jun 23 2017. [id number] risk score: 3. On Flecainide and chronic AC with Rivaroxaban. Plan: Monitor in the CICU Will hold AC for now due to concern for oropharynx bleeding after PVI. Daily ECgs Continue Flecainide F/u EP recs. Vitamin D deficiency 08/17/2013 018 Secondary hyperparathyroidism, non-renal 09/02/2005 01/07/2018 Abdominal pain, left upper quadrant 07/17/2016 Hyperparathyroidism, unspecified 12/22/2006 documented as of this encounter (statuses as of 02/10/2024) [facility]03-[facility] Miscellaneous Notes* Telephone Encounter - Janeen Flores MA - 02/10/2024 4:24 PM EDT I placed an order for PHYSICAL THERAPY consult. Patient will need contacted. Dr. Soriano documented in this encounterUniversity Hospitals [facility]03-[facility]24 History of Present illness Narrative* Cholo Soriano MD - 02/10/2024 8:33 AM EDT Chief Complaint Patient presents with: Follow Up HPI Katelynn Campuzano is a 73 year old female who presents here today for follow up from /fall. Patient was seen in the [facility] 02/06/2024 after a fall [place] a [place] the day prior. Patient that day only complained of pain in the right wrist. However she also had some pain in the right check, right shoulder, right ribs and right knee. The shoulder and knee just have a bruise now and most of the pain has resolved in the right shoulder and knee. Her ribs are spool tender. Denies any shortness of breath or productive cough. Still has pain in the right cheek where she hit her face on the ground. No LOC. Some bruising. No difficulty breathing out of her nose and no nasal discharge. Patient has had three falls in the last 6-12 months and feels she may be having some balance or gait issues. Office visit 02/06/2024 Tripped on her cane at a yesterday and fell on her right hand. She has pain around the wrist and on the back of the right hand. It is aggravated with wrist movement. She has swelling/bruisingof the hand. She has some tingling if she wears a wrap too tight on the wrist. She has used acetaminophen for pain. Past medical history, appointments, medications, allergies reviewed. Previous Medical History PAST MEDICAL HISTORY Diagnosis Date Acquired hypothyroidism 07/16/2016 Continue home Levothyroxine dose. 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 - discussed with the ENT team, r Osteopenia Paroxysmal atrial fibrillation (HCC) Personal history of colonic polyps Colon polyps S/P ablation of atrial fibrillation 06/24/2017 Date of procedure 06/23/17. Indication: persistent atrial fibrillation. - restart anticoagulation on Thursday06/29/2017 SEC HYPERPARATHYROID, NON-RENAL 09/02/2005 Situational depression 06/07/2014 Skin cancer of nose 10/21/2023 basal cell Tuberculin test reaction Unspecified hemorrhoids without mention [...] CATH,PERCUTANEOUS LIG/TRNSXJ FLP TUBE ABDL/VAG APPR UNI/BI MOHS HEAD/NECK STAGE 1 <=5 PAST SURGICAL HISTORY OF cataracts bilateral PAST [...] File Prior to Visit Medication Sig hydroCHLOROthiazide 25 mg tablet Take 1 tablet by mouth once daily. allopurinol (ZYLOPRIM) 300 mg tablet Take 1 tablet by mouth two times a day. levothyroxine (SYNTHROID) 25 mcg tablet Take 1 tablet by mouth daily before breakfast. flecainide (TAMBOCOR) 100 mg tablet TAKE 1 TABLET BY MOUTH EVERY 12 HOURS (DOSE INCREASE) cyanocobalamin (VITAMIN B-12) 1,000 mcg tab Take [...] 0.5 tablets by mouth twice daily. (Patient not taking: Reported on 10/28/2023) acetaminophen (TYLENOL) 500 mg tablet Take 1,000 [...] No Review of Symptoms REVIEW OF SYSTEMS See HPI EXAM: BP 138/82 (BP Site: Left Arm, BP Position: Sitting, BP Cuff Size: Large Adult) Pulse 60 Resp 16 Wt 117.5 kg (259 lb) BMI 39.97 kg/m General Appearance: Well appearing, alert, in no acute distress, well-hydrated, well nourished.. Nose/Sinuses: Nares normal, septum midline, mucosa normal, no drainage or sinus tenderness. Oropharynx: Lips, mucosa, and tongue normal, teeth and gums normal, oropharynx normal. Face: has a bruise over the right cheek. She is very tender over the zygomatic arch on the right. Has full ROM in the right eye without any pain. Health Maintenance List Advance Directive Discussion due on 11/23/2023 Colorectal Cancer Screening due on 04/11/2024 Mammogram Screening due on 10/12/2024 Annual PCP Team Chronic Disease Visit due on 10/26/2024 BP Controlled (<130/80) due on 02/05/2025 Diabetes Screening due on 10/13/2026 Lipid Screening due on 10/13/2028 DTaP,Tdap,Td Vaccine(6 - Td or Tdap) due on 09/02/2032 Bone Density Screening Completed Influenza Vaccine Completed RSV Vaccine Completed Hepatitis C Screening Completed Shingrix Vaccine Completed Covid-19 Vaccine Completed Pneumococcal Vaccine: 65+ Completed Data reviewed A/P ASSESSMENT/PLAN: 1. Pain of cheek - ICD9: 784.0, ICD10: R51.9 Check - CT FACIAL BONE/ALEKSANDRA WO IVCON 2. Balance problems - ICD9: 781.99, ICD10: R26.89 - CONSULT TO PHYSICAL THERAPY 3. Multiple falls - ICD9: V15.88, ICD10: R29.6 - CONSULT TO PHYSICAL THERAPY Cholo Soriano MD documented in this encounterUniversity Hospitals [facility]03-20-2024 Miscellaneous Notes* Telephone Encounter - Emma León RN - 02/10/2024 7:57 AM EDT Reason for Call: Fall with injury to right cheek, hand/wrist, rib and knee Outcome: Patient was conferenced to [facility] in [facility]ointment Center for PCP within 3 day scheduling. Reason for Disposition [1] Fall AND [2] went to emergency department for evaluation or treatment Nursing Judgement - See PCP within 3 days - Third Fall, injury to hand/wrist, cheek, rib and knee. Seen in ED, only reported hand/wrist injury to ED Answer Assessment - Initial Assessment Questions 1. MECHANISM: Walking with cane on asphalt at [facility], cane was turned wrong way, while trying to correct cane, it went into shoe, causing fall 2. DOMESTIC VIOLENCE AND ELDER ABUSE SCREENING: Denies anyone pushed her 3. ONSET: 02/05/24 4. LOCATION: Right cheek, ribs, knee and hand, wrist 5. INJURY: Right cheek, right hand/wrist, right rib, right knee 6. PAIN: Mild. Touching cheek hurts, rib hurts (arthritis), right knee bruised 7. SIZE: Bruising on cheekbone- 50 cent piece, right rib - 50 cent piece right wrist in splint, when splint was off hurt on pinkie side in heel of hand, but ED and [facility] believe probable breakon thumb side 8. :N/A 9. OTHER SYMPTOMS: Has been using cane for walking assistance 10. CAUSE: Cane caught in shoe Patient is drinking usual amount of fluids and urinating usual amount and frequency, last urination02/10/24 this morning. No medication changes within the past 30 days. Protocols used: Falls and [id number] documented in this encounterUniversity Hospitals [facility]03-18-2024 History of Past illness Narrative* Problem Noted Date Diagnosed Date Resolved Date IRB [id number]: [facility] Using [employer] for Chronic Care of Patients with AF after Ablation Procedure- Randomized Study 12/02/2018 05/13/2019 Sciatica of right side 08/11/201701/07 A-fib 06/24/2017 07/06/2017 Lumbar compression fracture 04/15/2017 04/11/2022 Paronychia of finger 05/14/2016 017 Atrial fibrillation, persistent 09/04/2015 12/27/2018 Overview: S/p DCCV Oct 2016 and PV! Jun 23 2017. [id number] risk score: 3. On Flecainide and chronic AC with Rivaroxaban. Plan: Monitor in the CICU Will hold AC for now due to concern for oropharynx bleeding after PVI. Daily ECgs Continue Flecainide F/u EP recs. Vitamin D deficiency 08/17/2013 018 Secondary hyperparathyroidism, non-renal 09/02/2005 01/07/2018 Abdominal pain, left upper quadrant 07/17/2016 Hyperparathyroidism, unspecified 12/22/2006 documented as of this encounter (statuses as of 02/08/2024) [facility]03-18-[facility]24 History of Past illness Narrative* Problem Noted Date Diagnosed Date Resolved Date IRB : AFib Clinic [facility] Using [employer] Platform for Chronic Care of Patients with AF after Ablation Procedure- Randomized Study 12/02/2018 05/13/2019 Sciatica of right side 08/11/201701/07 A-fib 06/24/2017 07/06/2017 Lumbar compression fracture 04/15/2017 04/11/2022 Paronychia of finger 05/14/2016 017 Atrial fibrillation, persistent 09/04/2015 12/27/2018 Overview: S/p DCCV Oct 2016 and PV! Jun 23 2017. [id number] risk score: 3. On Flecainide and chronic AC with Rivaroxaban. Plan: Monitor in the CICU Will hold AC for now due to concern for oropharynx bleeding after PVI. Daily ECgs Continue Flecainide F/u EP recs. Vitamin D deficiency 08/17/2013 018 Secondary hyperparathyroidism, non-renal 09/02/2005 01/07/2018 Abdominal pain, left upper quadrant 07/17/2016 Hyperparathyroidism, unspecified 12/22/2006 documented as of this encounter (statuses as of 02/08/2024) [facility]03-18-[facility] History of Past illness Narrative* Problem Noted Date Diagnosed Date Resolved Date IRB : [facility]ib [facility] Using [employer] Platform for Chronic Care of Patients with AF after Ablation Procedure- Randomized Study 12/02/2018 05/13/2019 Sciatica of right side 08/11/201701/07 A-fib 06/24/2017 07/06/2017 Lumbar compression fracture 04/15/2017 04/11/2022 Paronychia of finger 05/14/2016 017 Atrial fibrillation, persistent 09/04/2015 12/27/2018 Overview: S/p DCCV Oct 2016 and PV! Jun 23 2017. [id number] risk score: 3. On Flecainide and chronic AC with Rivaroxaban. Plan: Monitor in the CICU Will hold AC for now due to concern for oropharynx bleeding after PVI. Daily ECgs Continue Flecainide F/u EP recs. Vitamin D deficiency 08/17/2013 018 Secondary hyperparathyroidism, non-renal 09/02/2005 01/07/2018 Abdominal pain, left upper quadrant 07/17/2016 Hyperparathyroidism, unspecified 12/22/2006 documented as of this encounter (statuses as of 02/08/2024) [facility]03-18-2024 Miscellaneous Notes* Telephone Encounter - Aurea Lopez MA - 02/08/2024 1:36 PM EDT When I spoke with the patient on the phone she was asking about sedation for the MRI. Explained that she will have to go out of town for that as she will have to have anesthesia team involved for that. She also asked about open MRI. Again, advised she would have to go out of town to [facility], I believe. She is going to check around and see if there is a unit closer to home for her outsideof the clinic. She will let us know if we have to send the order elsewhere. * Telephone Encounter - Zoey Chawla PA-C - 02/08/2024 10:27 AM EDT Can we offer patient follow-up with me next week, I have some openings on Thursday and . I ordered an MRI, I want her to have the MRI prior to her apt. * Telephone Encounter - Lillian Berman - 02/08/2024 8:20 AM EDT Pt was told in [facility] to see Zoey Chawla. No appointments available at the time of call. Please advise. documented in this encounterUniversity Hospitals Parma [facility] Center03-18-2024 Miscellaneous Notes* Telephone Encounter - Aurea Lopez MA - 02/08/2024 1:20 PM EDT I contacted patient and she states that she already has an appointment this afternoon in [place] with the cast tech. Patient was also given the option to report back to the Urgent Care to have replaced. She would prefer to keep cast tech appointment. * Telephone Encounter - Susana Chopra MA - 02/08/2024 12:38 PM EDT Patient was seen in Urgent Care 02/05 for probable fracture right wrist. She had previously seen Zoey for a separate issue. Pt sent [employer] message about problems with splint. She was told to keep it on but she had already taken it off. She is asking if she should go back to Urgent care or if someone else would be contacting her. There was mention of a cast tech in her [employer] message but she is unsure of how to contactthem. She can be contacted at [phone]. Susana Chopra MA documented in this encounterUniversity Hospitals Parma [facility] Center03-18-2024 Miscellaneous Notes* Telephone Encounter - Merlyn Go RN - 02/08/2024 1:03 PM EDT I just want to know if Rishi is comfortable putting her into a thumb spica splint without me there. It sounds like she is already in one but does not seem like it is the most comfortable splint in the world. I am not going to be able to see her in the office until next week. Really don't want her to have to go back to urgent care. Sounds like she may have a scaphoid fracture Per Zoey Appt at 230 ot whenever she gets here documented in this encounterUniversity Hospitals Parma Medical Center03-16-2024 Miscellaneous Notes* Addendum Note - Guido Aguilar MD - 02/06/2024 11:37 AM EDTAddended by: GUIDO AGUILAR on: 02/06/2024 11:37 AM Modules accepted: Orders documented in this encounterUniversity Hospitals Parma [facility] Center03-16-2024 History of Present illness Narrative* Paula Fisher RT(R) - 02/06/2024 9:50 AM EDT Radiology Service Progress Note PATIENT NAME: Katelynn Campuzano DATE OF SERVICE: February 06, 2024 TIME: 9:45 AM PATIENT IDENTITY VERIFICATION COMPLETED USING TWO (2) IDENTIFIERS: Name and Date of confirmedby patient verbally. FALL SCREENING: Has the patient had 2 falls in the last year or 1 fall with injury or currently using an Ambulatory Assistive Device (Walker, Cane, Wheelchair, Crutches, etc.)? Yes, Patient High Riskfor Falls What interventions were put in place to prevent falls during this visit? Increased Observations by Caregivers PATIENT GENDER DATA: Female. status: : No status: NO. PATIENT RELEVANT IMPLANT DATA REVIEWED: Not Applicable PATIENT PRESENTS WITH AN IMPLANTABLE OR ATTACHED COMMERCIAL MAKEUP ARTIST: No RADIOLOGY DEPARTMENT: General X-ray: Exam(s) Completed: Upper Extremity X- Ray(s): Wrist, right PERIPHERAL IV DATA: Not applicable SIGNED BY: RT Edna(R) February 06, 2024 9:45 AM documented in this encounterUniversity Hospitals Parma [facility] Center03-16-2024 History of Present illness Narrative* Guido Aguilar MD - 02/06/2024 9:26 AM EDT Patient presents with: right wrist pain: Fell yesterday HPI: Tripped on her cane at a yesterday and fell on her right hand. She has pain around the wrist and on the back of the right hand. It is aggravated with wrist movement. She has swelling/bruisingof the hand. She has some tingling if she wears a wrap too tight on the wrist. She has used acetaminophen for pain. MEDICATIONS: hydroCHLOROthiazide 25 mg tablet Take 1 tablet by mouth once daily. allopurinol (ZYLOPRIM) 300 mg tablet Take 1 tablet by mouth two times a day. levothyroxine (SYNTHROID) 25 mcg tablet Take 1 tablet by mouth daily before breakfast. flecainide (TAMBOCOR) 100 mg tablet TAKE 1 TABLET BY MOUTH EVERY 12 HOURS (DOSE INCREASE) cyanocobalamin (VITAMIN B-12) 1,000 mcg tab Take [...] 12.5 mg by mouth every 12 hours. predniSONE (DELTASONE) 10 mg tablet 6 tabs po day 1, then 5 tabs day 2, 4 tabs day 3, 3 tabs day 4,2 tabs day 5, 1 tab day 6. (Patient not taking: Reported on 12/21/2023) doxycycline hyclate (VIBRAMYCIN) 100 mg capsule TAKE ONE CAPSULE BY MOUTH TWICE A DAY FOR 7 DAYS WITH FOOD (Patient not taking: Reported on 10/28/2023) flecainide (TAMBOCOR) 150 mg tablet Take 0.5 tablets by mouth twice daily. (Patient not taking: Reported on 10/28/2023) ALLERGIES: ALLERGIES Allergen Reactions Sulfa (Sulfonamide * Hives Penicillins Unknown VITALS: BP 122/72 Pulse 61 Temp 36.3 C (97.4 F) (Tympanic) Resp 18 Wt 117.7 kg (259 lb 7.7 oz) SpO2 98% BMI 40.04 kg/m PE: Pleasant, in no acute distress. [id number]. WRIST/HAND: right. Ecchymosis/edema of the dorsal hand. Decreased flexion and extension. Slightly decreased supination/pronation. Discomfort with palpation of the dorsal hand and wrist without point tenderness. Distal radius and ulna are nontender. Fingers are nontender. ASSESSMENT/PLAN: 1. Wrist pain, right - ICD9: 719.43, ICD10: M25.531 (primary diagnosis) 2. Closed nondisplaced fracture of scaphoid of right wrist, unspecified portion of scaphoid, initial encounter - ICD9: 814.01, ICD10: S62.001A - XR WRIST GENERAL 3V PA/LAT/OBL RIGHT -possible fracture of the neck and scaphoid - CONSULT TO ORTHOPAEDICS Placed in Ortho-Glass thumb spica radial gutter wrist splint. As needed analgesia. Guido Aguilar MD documented in this encounterUniversity Hospitals Parma [facility] Center02-20-2024 Discharge summary Author Eber Alicia [facility] January 12, 2024 1:48pm Note Date/Time January 12, 2024 1:48pm [facility] Medical Records Department [address] [place] [address] Emergency Department Summary 01/12/24 MR#: [id number] Acct: [id number] Name: KATELYNN CAMPUZANO Rep #:[id number] : 1950 73 From: Eber Alicia MD PCP: Dr. Cholo Soriano MD Status:REG ER Location: ED HPI History of Present Illness Chief Complaint: Cellulitis Informant: patient Narrative Narrative: Patient presents with cellulitis to the right foot. Patient states that she noticed some redness on Thursday. She was seen in urgent care yesterday. She was written for cephalexin. She has allergies to penicillin and sulfa. She was told that she might need other or more antibiotics. She states it has not really changed much. It is not worse but isalso not better. She has no nausea vomiting fevers or chills. She states she does not feel systemically ill. She has no history of diabetes. She states shecould have gotten bitten by a bug but does not recall anything specifically. She states she feels fine is just that her foot is red and it is sore. [facility] Medical History AVNRT (AV donna re-entry tachycardia) Body mass index (BMI) 35 or more Bradycardia COVID-19 Dyspnea on exertion Essential (primary) hypertension History of high risk medication treatment Hyperparathyroidism Hypothyroidism LVH (left ventricular hypertrophy) Mild pulmonary arterial systolic hypertension Obesity Obstructive sleep apnea Pain in left lower leg Palpitations Paroxysmal atrial fibrillation Tachycardia Thyroid nodule Home Medications levothyroxine 25 mcg tablet 25 mcg PO DAILY thyroid 07/27/16 [History Last Taken 01/25/19 06:00] cholecalciferol (vitamin D3) 50 mcg (2,000 unit) capsule 2,000 unit PO QDAY deficiency 02/02/18 [History Last Taken 01/25/19 08:00] acetaminophen 650 mg tablet,extended release (Tylenol 8 Hour) 650 mg PO QPM 01/15/21 [History Last Taken Unknown] hydrochlorothiazide 25 mg tablet 25 mg PO QDAY HTN #90 tabs 01/15/21 [Rx Last Taken Unknown] allopurinol 300 mg tablet 300 mg PO BID high uric acid 08/26/22 [History Last Taken Unknown] cyanocobalamin (vitamin B-12) 1,000 mcg capsule 1,000 mcg PO DAILY 08/26/22 [History Last Taken Unknown] Xarelto 20 mg tablet (rivaroxaban) 20 mg PO DAILY #90 tabs 01/19/23 [Rx Last Taken Unknown] lisinopril 5 mg tablet See Rx Instructions .Route .COMPLEX #90 tabs 02/16/23 [Rx Last Taken Unknown] metoprolol tartrate 25 mg tablet See Rx Instructions .Route .COMPLEX #90 tabs 02/16/23 [Rx Last Taken Unknown] flecainide 100 mg tablet See Rx Instructions .Route .COMPLEX #180 tabs 12/02/23 [Rx Last Taken Unknown] hydrocodone-acetaminophen 5-325mg 5mg-325mg 0.5 - 1 tab (0.5 - 1 x 5-325 mg) PO Q6H PRN PRN Pain 2 days #3 TABLETS 12/12/23 [Rx Last Taken Unknown] cephalexin 500 mg capsule 500 mg PO Q6 #20 CAPSULES 01/12/24 [Rx Last Taken Unknown] doxycycline monohydrate 100 mg capsule 100 mg PO BID #20 CAPSULES 01/12/24 [Rx Last Taken Unknown] Allergy/AdvReac Type Severity Reaction Status Date / Time Penicillins Allergy Hives Verified 01/12/24 12:09 Sulfa (Sulfonamide Allergy Hives Verified 01/12/24 12:09 Antibiotics) Family History Father CVA (cerebral vascular accident) Atrial fibrillation Surgical History History of cardiac radiofrequency ablation (07/2018) History of cardioversion (01/28/19) History of hip replacement History of hysterectomy History of knee replacement History of left heart catheterization (11/20/08) History of right and left heart catheterization (02/04/21) S/P fine needle aspiration (07/2021) Social History housing: house Smoking Status: Never smoker alcohol intake: never substance use type: does not use caffeine: No ROS ROS ED Constitutional Constitutional ED: Denies chills or fever(s) ENT ENT ED: Denies rhinorrhea Cardiovascular Cardiovascular: Denies chest pain Respiratory/Chest Respiratory/Chest: Denies cough or dyspnea Gastrointestinal Gastrointestinal: Denies nausea or vomiting Musculoskeletal Musculoskeletal: Denies arthralgias or myalgias Integumentary Reports rash; Denies abscess or Abrasions Neurologic Neurologic: Denies paresthesias or weakness Hematologic/Lymphatic Hematologic/Lymphatic: Denies lymphadenopathy EXAM Physical Exam Narrative Exam Narrative: General: Patient sitting comfortably in the room no acute distress. HEENT shows no sign of trauma. Mucous membranes are moist. Cardiorespiratory Heart rate is regular. Lungs are clear saturations are normalat 93% on room air showing no hypoxia. Extremities: There is no swelling of her extremities. No tenderness until you get down to the lateral dorsal lateral aspect of the right foot. There is some erythema and warmth. But I can move her ankle very easily and there is no pain at all. No indication of intra-articular involvement. Patient also has cracking of the skin under the heels and toes with a little bit of fungal involvement of the nails. I think this is a easy possible source for bacteria inlet into the skin. Const Vital Signs: 01/12/24 12:09 Temperature 98.1 F Temperature Source Temporal Pulse Rate 65 Respiratory Rate 14 Blood Pressure 140/66 H Blood Pressure Mean 90 Pulse Ox 93 Oxygen Delivery Method Room Air MDM MDM MDM Narrative Medical decision making narrative: I told the patient that is certainly possible she could have gotten an insect bite. But we have no history of that. Therefore I would treat this as cellulitis. It is red warm and somewhat painful. She is on a cephalexin prescription but is only taken 3 tablets so far. I will write for another 5 days that she was only written for 5 days. We will add Doxy to get greater and broader staph and resistant staph coverage. We discussed reasons to return. Discharge Plan Triage Chief Complaint: Cellulitis ED Provider: Eber Alicia Dx/Rx/DC Orders Clinical Impression: Cellulitis of foot, right Instructions: ED Cellulitis Prescriptions: New doxycycline monohydrate 100 mg capsule 100 mg PO BID Qty: 20 0RF cephalexin [cephalexin] 500 mg capsule 500 mg PO Q6 Qty: 20 0RF No Action cholecalciferol (vitamin D3) 2,000 unit capsule 2,000 unit PO QDAY hydrochlorothiazide 25 mg tablet 25 mg PO QDAY Qty: 90 3RF acetaminophen [Tylenol 8 Hour] 650 mg tablet extended release 650 mg PO QPM cyanocobalamin (vitamin B-12) 1,000 mcg capsule 1,000 mcg PO DAILY levothyroxine 25 MCG tablet 25 mcg PO DAILY allopurinol 300 mg tablet 300 mg PO BID hydrocodone-acetaminophen [hydrocodone-acetaminophen] 5-325 mg tablet 0.5 - 1 tab PO Q6H PRN PRN (Reason: Pain) 2 Days Qty: 3 0RF Xarelto 20 mg tablet 20 mg PO DAILY Qty: 90 3RF metoprolol tartrate 25 mg tablet See Rx Instructions .ROUTE .COMPLEX Qty: 90 4RF Dose Instruction: TAKE 1/2 TAB BY MOUTH TWICE DAILY Rx Instructions: TAKE 1/2 TAB BY MOUTH TWICE DAILY lisinopril 5 mg tablet See Rx Instructions .ROUTE .COMPLEX Qty: 90 4RF Dose Instruction: TAKE 1 TABLET BY MOUTH EVERYDAY Rx Instructions: TAKE 1 TABLET BY MOUTH EVERYDAY flecainide 100 mg tablet See Rx Instructions .ROUTE .COMPLEX Qty: 180 3RF Dose Instruction: TAKE 1 TABLET BY MOUTH EVERY 12 HOURS (DOSE INCREASE) Rx Instructions: TAKE 1 TABLET BY MOUTH EVERY 12 HOURS (DOSE INCREASE) Primary Care Provider: Cholo Soriano Referrals: Cholo Soriano MD [Primary Care Provider] - 5-7 Days Disposition Disposition: Home, Self Care What to do if you have Problems For any increased pain, shortness of breath, bleeding, nausea or vomiting, chestpain, or any unexpected problems, contact your Primary Care Provider. Call [facility] ([phone]) or report to the closest Emergency Room. Call 911 if necessary. 01/12/24 1348 <Electronically signed by Eber Alicia MD> Cosigner Signature (if applicable): CC: Dr. Cholo Soriano MD ~ Signed [facility] Work Phone: [phone] 748-457702-19-2024 History of Past illness Narrative* Problem Noted Date Diagnosed Date Resolved Date IRB 18-444: [facility] Using [employer] Platform for Chronic Care of Patients with AF after Ablation Procedure- Randomized Study 12/02/2018 05/13/2019 Sciatica of right side 08/11/201701/07 A-fib 06/24/2017 07/06/2017 Lumbar compression fracture 04/15/2017 04/11/2022 Paronychia of finger 05/14/2016 017 Atrial fibrillation, persistent 09/04/2015 12/27/2018 Overview: S/p DCCV Oct 2016 and PV! Jun 23 2017. [id number] risk score: 3. On Flecainide and chronic AC with Rivaroxaban. Plan: Monitor in the CICU Will hold AC for now due to concern for oropharynx bleeding after PVI. Daily ECgs Continue Flecainide F/u EP recs. Vitamin D deficiency 08/17/2013 018 Secondary hyperparathyroidism, non-renal 09/02/2005 01/07/2018 Abdominal pain, left upper quadrant 07/17/2016 Hyperparathyroidism, unspecified 12/22/2006 documented as of this encounter (statuses as of 01/11/2024) [facility] History of Present illness Narrative* Denita Martinez APRN.[employer] - 01/11/2024 3:46 PM EST SUBJECTIVE: Katelynn Campuzano is a 73 year old female. Who presents today with R ankle pain and swelling. She noticed pain last night in the ankle. This morning she looked and thought she saw as bite yojana maybe aspider. Over the course of the day the ankle has become increasingly swollen and red. The area is painful. She has not had a fever. She has not taken any medication for the ankle yet. HPI PAST MEDICAL HISTORY Diagnosis Date Acquired hypothyroidism 07/16/2016 Continue home Levothyroxine dose. 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 - discussed with the ENT team, r Osteopenia Paroxysmal atrial fibrillation (HCC) Personal history of colonic polyps Colon polyps S/P ablation of atrial fibrillation 06/24/2017 Date of procedure 06/23/17. Indication: persistent atrial fibrillation. - restart anticoagulation on Thursday06/29/2017 SEC HYPERPARATHYROID, NON-RENAL 09/02/2005 Situational depression 06/07/2014 Skin cancer of nose 10/21/2023 basal cell Tuberculin test reaction Unspecified hemorrhoids without mention of complication Hemorrhoids Vitamin D deficiency 08/17/2013 FAMILY HISTORY Problem Relation Age of Onset Diabetes Mother Thyroid Mother other (Other) Mother colon polyps - not CA Heart Father other (Other) Brother colon polyps- not CA Cancer Daughter 4 neuroblastoma Social History Tobacco Use Smoking status: Never Smokeless tobacco: Never Vaping Use Vaping Use: Never used Substance Use Topics Alcohol use: Never Drug use: No ALLERGIES Allergen Reactions Sulfa (Sulfonamide * Hives Penicillins Unknown Current Outpatient Medications Medication Sig Dispense Refill predniSONE (DELTASONE) 10 mg tablet 6 tabs po day 1, then 5 tabs day 2, 4 tabs day 3, 3 tabs day 4,2 tabs day 5, 1 tab day 6. (Patient not taking: Reported on 12/21/2023) 21 tablet 0 hydroCHLOROthiazide 25 mg tablet Take 1 tablet by mouth once daily. 90 tablet 1 allopurinol (ZYLOPRIM) 300 mg tablet Take 1 tablet by mouth two times a day. 180 tablet 3 doxycycline hyclate (VIBRAMYCIN) 100 mg capsule TAKE ONE CAPSULE BY MOUTH TWICE A DAY FOR 7 DAYS WITH FOOD (Patient not taking: Reported on 10/28/2023) levothyroxine (SYNTHROID) 25 mcg tablet Take 1 tablet by mouth daily before breakfast. 90 tablet 1 flecainide (TAMBOCOR) 100 mg tablet TAKE 1 TABLET BY MOUTH EVERY 12 HOURS (DOSE INCREASE) cyanocobalamin (VITAMIN B-12) 1,000 mcg tab Take [...] 0.5 tablets by mouth twice daily. (Patient not taking: Reported on 10/28/2023) 90 tablet 3 acetaminophen (TYLENOL) 500 mg tablet Take 1,000 mg by mouth at bedtime as needed. metoprolol tartrate, short acting, (LOPRESSOR) 12.5 mg tab Take 12.5 mg by mouth every 12 hours. No current facility-administered medications for this visit. OBJECTIVE: BP 147/82 Pulse 61 Temp 36.5 C (97.7 F) Resp 18 Wt 117 kg (258 lb) SpO2 98% BMI 39.81 kg/m ROS all other systems reviewed and are negative Physical Exam Constitutional: Well developed, well nourished, NAD, A&O X3. ENT: Head is atraumatic, airway patent, mucosal membranes moist. Cardiac: Heart tone normal rate and rhythm Respiratory: Breath sounds clear : no CVA tenderness MS: no swelling, tenderness or deformity in upper or lower extremities, no midline tenderness in cervical, thoracic or lumbar spine. Neuro: strength sensation and coordination intact. CN II-XII grossly intact, Skin: warm and dry with out rash, patient's right lateral malleolus is red hot and swollen. There does appear to be a bite yojana the swelling is approximately the size of the palm of my hand there is no red lines up the leg. Pulses in the foot are palpable +2 cap refill is brisk full range of motionof the toes decreased range of motion of the ankle due to pain and guarding no calf tenderness fullrange of motion of the knee Psych: alert appropriate, speech clear Differential diagnosis Cellulitis, spider bite, septic ankle joint, and necrotizing fasciitis It was a pleasure to take care of Katelynn Campuzano today. Today I will treat her for a cellulitis of the ankle. She is allergic to penicillins and sulfa medications therefore I will give her Keflex. She may take Motrin and Tylenol for any pain and inflammation. Patient will continue to monitor the infection if it is getting worse and not better she will go to the emergency department for continued evaluation and treatment. Differential diagnosis is include septic ankle and necrotizing fasciitis Patient will follow up with family physician. They may return to the Urgent Care or go to the ER for worsening symptoms or concerns. Patient verbalized understanding of plan of care and is in agreement. ASSESSMENT/PLAN: 1. Cellulitis of skin - ICD9: 682.9, ICD10: L03.90 - CEPHALEXIN 500 MG CAPSULE Denita Martinez APRN.DEBURRER MACHINE documented in this encounterUniversity Hospitals Parma [facility] Center12-05-2023 History of Present illness Narrative* Luis Alberto Sommers LPN - 10/27/2023 8:50 AM EST Scan on 10/23/2023 5:33 PM by Provider, SHAE Louise: Consultation - Dermatology documented in this encounterUniversity Hospitals Parma Medical Center11-21-2023 History of Past illness Narrative* Problem Noted Date Diagnosed Date Resolved Date IRB 18-189: [facility] Using [employer] Platform for Chronic Care of Patients with AF after Ablation Procedure- Randomized Study 12/02/2018 05/13/2019 Sciatica of right side 08/11/201701/07 A-fib 06/24/2017 07/06/2017 Lumbar compression fracture 04/15/2017 04/11/2022 Paronychia of finger 05/14/2016 017 Atrial fibrillation, persistent 09/04/2015 12/27/2018 Overview: S/p DCCV Oct 2016 and PV! Jun 23 2017. [id number] risk score: 3. On Flecainide and chronic AC with Rivaroxaban. Plan: Monitor in the CICU Will hold AC for now due to concern for oropharynx bleeding after PVI. Daily ECgs Continue Flecainide F/u EP recs. Vitamin D deficiency 08/17/2013 018 Secondary hyperparathyroidism, non-renal 09/02/2005 01/07/2018 Abdominal pain, left upper quadrant 07/17/2016 Hyperparathyroidism, unspecified 12/22/2006 documented as of this encounter (statuses as of 10/13/2023) [facility]11-21-2023 Miscellaneous Notes* Letter - Coordinator, Mammography - 10/13/2023 3:29 PM EST October 14, 2023 PID: [id number] Katelynn Campuzano [address] [place] [address] Dear Ms. Campuzano, We are pleased to [...] report will be kept on [facility] at [facility] as part of your permanent medical record and are available for your continuing care. Thank you for allowing us to help in meeting your health care needs. Sincerely, Dr. Joseph Interpreting Radiologist [facility] (Normal over 40) documented in this encounterUniversity Hospitals Parma Medical Center11-21-2023 History of Present illness Narrative* Magda Simon MD - 10/13/2023 8:05 AM EST Screen Stretcher offered: Patient declines. 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 - discussed with the ENT team, r [...] needed Magda Hanson MD documented in this encounterUniversity Hospitals Parma Medical Center11-20-2023 History of Present illness Narrative* [...] 12, 2023 10:30 AM documented in this encounterUniversity Hospitals Parma Medical Center11-17-2023 History of Past illness Narrative* Problem Noted Date Diagnosed Date Resolved Date IRB 18-144: [facility] Using [employer] Platform for Chronic Care of Patients with AF after Ablation Procedure- Randomized Study 12/02/2018 05/13/2019 Sciatica of right side 08/11/201701/07 A-fib 06/24/2017 07/06/2017 Lumbar compression fracture 04/15/2017 04/11/2022 Paronychia of finger 05/14/2016 017 Atrial fibrillation, persistent 09/04/2015 12/27/2018 Overview: S/p DCCV Oct 2016 and PV! Jun 23 2017. [id number] risk score: 3. On Flecainide and chronic AC with Rivaroxaban. Plan: Monitor in the CICU Will hold AC for now due to concern for oropharynx bleeding after PVI. Daily ECgs Continue Flecainide F/u EP recs. Vitamin D deficiency 08/17/2013 018 Secondary hyperparathyroidism, non-renal 09/02/2005 01/07/2018 Abdominal pain, left upper quadrant 07/17/2016 Hyperparathyroidism, unspecified 12/22/2006 documented as of this encounter (statuses as of 10/09/2023) [facility]11-17-2023 History of Present illness Narrative* Aryan Torres V, DO - 10/09/2023 1:26 PM EST SUBJECTIVE: Katelynn Campuzano is a 73 year old female who is here for a right little finger injury. It occurred 10 days ago when she fell on right hand. Symptoms include pain, swelling and bruising of the finger.She was seen in [facility], has tried jaya taping. PAST MEDICAL HISTORY Diagnosis Date Acquired hypothyroidism 07/16/2016 Continue home Levothyroxine dose. 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 - discussed with the ENT team, r [...] to 3 weeks with repeat x-rays Aryan V Brian, DO * Aurea Lopez Ma - 10/09/2023 1:06 PM EST AMB ROOMING INTAKE FLOWSHEET DATA Pain Pain Level: 2 Pain Location: Finger Description: Sore, Other: See comment Duration Units: Minutes Frequency: Intermittent Intervention/Comfort measure: Medication, Reposition, Cold, Positioning, Splinting, Support surface Comments: Ok when jaya wrapped, hurts when wrap is off documented in this encounterUniversity Hospitals Parma Medical Center11-16-2023 History of Past illness Narrative* Problem Noted Date Diagnosed Date Resolved Date IRB 18-444: [facility] Using [employer] Platform for Chronic Care of Patients with AF after Ablation Procedure- Randomized Study 12/02/2018 05/13/2019 Sciatica of right side 08/11/201701/07 A-fib 06/24/2017 07/06/2017 Lumbar compression fracture 04/15/2017 04/11/2022 Paronychia of finger 05/14/2016 017 Atrial fibrillation, persistent 09/04/2015 12/27/2018 Overview: S/p DCCV Oct 2016 and PV! Jun 23 2017. [id number] risk score: 3. On Flecainide and chronic AC with Rivaroxaban. Plan: Monitor in the CICU Will hold AC for now due to concern for oropharynx bleeding after PVI. Daily ECgs Continue Flecainide F/u EP recs. Vitamin D deficiency 08/17/2013 018 Secondary hyperparathyroidism, non-renal 09/02/2005 01/07/2018 Abdominal pain, left upper quadrant 07/17/2016 Hyperparathyroidism, unspecified 12/22/2006 documented as of this encounter (statuses as of 10/08/2023) [facility]11-16-2023 History of Present illness Narrative* Samira Doe, RT(R) - 10/08/2023 1:00 PM EST Radiology Service Progress Note PATIENT NAME: [...] DEPARTMENT: General X-ray: Exam(s) Completed: Upper Extremity X- Ray(s): Hand, right PERIPHERAL IV DATA: Not applicable SIGNED BY: RT Declan(R) October 08, 2023 12:58 PM documented in this encounterUniversity Hospitals Parma Medical Center11-16-2023 History of Present illness Narrative* Alta Moser APRN.DEBURRER MACHINE - 10/08/2023 12:50 PM EST Images from the original note were not included. This note was created using [employer] Rob[employer]. Subjective Katelynn Campuzano is a 73 year old female. 73 year old female with PMH HTN, afib, hyperlipidemia, GERD, thyroid and depression presents for illness. Acute onset 10 days ago States that she was walking in the parking lot area of [facility] States she endured curb, And ultimately lost balance, Used her hand to break fall Denies head injury or LOC Denies neck or back pain Endorse fall was mechanical She does take Xarelto. Right hand dominant. Has tried jaya taping, but just not working The history is provided by the patient. No manager language was used. Hand Injury This is a [...] gangrene Encounter for gynecological examination 04/03/2021 Seeing UPHOLSTERY MECHANIC Essential hypertension 09/24/2010 On Atenolol and HCTZ [...] in the ICU and transferred to the [facility]. - discussed with the ENT team, r [...] analgesics Follow up with ortho Alta Moser APRN.DEBURRER MACHINE documented in this encounterUniversity Hospitals Parma Medical Center10-31-2023 History of Present illness Narrative* Janeen Flores Ma - 09/22/2023 4:12 PM EDT Scan on 09/22/2023 10:35 AM by Provider, SHAE Louise: Consultation - Cardiology documented in this encounterUniversity Hospitals Parma Medical Center10-19-2023 History of Past illness Narrative* Problem Noted Date Diagnosed Date Resolved Date IRB [id number]: [facility] Using Sky[employer] Platform for Chronic Care of Patients with AF after Ablation Procedure- Randomized Study 12/02/2018 05/13/2019 Sciatica of right side 08/11/201701/07 A-fib 06/24/2017 07/06/2017 Lumbar compression fracture 04/15/2017 04/11/2022 Paronychia of finger 05/14/2016 017 Atrial fibrillation, persistent 09/04/2015 12/27/2018 Overview: S/p DCCV Oct 2016 and PV! Jun 23 2017. [id number] risk score: 3. On Flecainide and chronic AC with Rivaroxaban. Plan: Monitor in the CICU Will hold AC for now due to concern for oropharynx bleeding after PVI. Daily ECgs Continue Flecainide F/u EP recs. Vitamin D deficiency 08/17/2013 018 Secondary hyperparathyroidism, non-renal 09/02/2005 01/07/2018 Abdominal pain, left upper quadrant 07/17/2016 Hyperparathyroidism, unspecified 12/22/2006 documented as of this encounter (statuses as of 09/10/2023) [facility]-2023 History of Present illness Narrative* Michelle Kim LPN - 09/10/2023 2:18 PM EDT Scan on 09/10/2023 9:15 AM by Provider, SHAE Louise: Consultation - Dermatology documented in this encounterUniversity Hospitals Parma [facility] Center10-18-2023 History of Past illness Narrative* Problem Noted Date Diagnosed Date Resolved Date IRB : [facility] Using [employer] Platform for Chronic Care of Patients with AF after Ablation Procedure- Randomized Study 12/02/2018 05/13/2019 Sciatica of right side 08/11/201701/07 A-fib 06/24/2017 07/06/2017 Lumbar compression fracture 04/15/2017 04/11/2022 Paronychia of finger 05/14/2016 017 Atrial fibrillation, persistent 09/04/2015 12/27/2018 Overview: S/p DCCV Oct 2016 and PV! Jun 23 2017. [id number] risk score: 3. On Flecainide and chronic AC with Rivaroxaban. Plan: Monitor in the CICU Will hold AC for now due to concern for oropharynx bleeding after PVI. Daily ECgs Continue Flecainide F/u EP recs. Vitamin D deficiency 08/17/2013 018 Secondary hyperparathyroidism, non-renal 09/02/2005 01/07/2018 Abdominal pain, left upper quadrant 07/17/2016 Hyperparathyroidism, unspecified 12/22/2006 documented as of this encounter (statuses as of 09/09/2023) [facility]10-18-[facility] History of Past illness Narrative* Problem Noted Date Diagnosed Date Resolved Date IRB 18-087: [facility] of [place] Using [employer] Platform for Chronic Care of Patients with AF after Ablation Procedure- Randomized Study 12/02/2018 05/13/2019 Sciatica of right side 08/11/201701/07 A-fib 06/24/2017 07/06/2017 Lumbar compression fracture 04/15/2017 04/11/2022 Paronychia of finger 05/14/2016 017 Atrial fibrillation, persistent 09/04/2015 12/27/2018 Overview: S/p DCCV Oct 2016 and PV! Jun 23 2017. [id number] risk score: 3. On Flecainide and chronic AC with Rivaroxaban. Plan: Monitor in the CICU Will hold AC for now due to concern for oropharynx bleeding after PVI. Daily ECgs Continue Flecainide F/u EP recs. Vitamin D deficiency 08/17/2013 018 Secondary hyperparathyroidism, non-renal 09/02/2005 01/07/2018 Abdominal pain, left upper quadrant 07/17/2016 Hyperparathyroidism, unspecified 12/22/2006 documented as of this encounter (statuses as of 09/09/2023) [facility]-2023 Miscellaneous Notes* Telephone Encounter - Magda Simon MD - 09/09/2023 11:25 AM EDT ordered * Telephone Encounter - Ree Ngo RN - 09/09/2023 11:09 AM EDT Mammogram order pending. Ree Ngo RN documented in this encounterUniversity Hospitals Parma [facility] Center06-28-2023 History of Past illness Narrative* Problem Noted Date Resolved Date IRB 18-874: [facility] Using [employer] Platform for Chronic Care of Patients with AF after Ablation Procedure- Randomized Study 12/02/2018 05/13/2019 Sciatica of right side 08/11/2017 8 A-fib 06/24/2017 07/06/2017 Lumbar compression fracture 04/15/201703/24 Paronychia of finger 05/14/2016 12/17/2016 Atrial fibrillation, persistent 09/04/2015 12/27/2018 Overview: S/p DCCV Oct 2016 and PV! Jun 23 2017. [id number] risk score: 3. On Flecainide and chronic AC with Rivaroxaban. Plan: Monitor in the CICU Will hold AC for now due to concern for oropharynx bleeding after PVI. Daily ECgs Continue Flecainide F/u EP recs. Vitamin D deficiency 08/17/2013 01/07/2018 Secondary hyperparathyroidism, non-renal 005 01/07/2018 Abdominal pain, left upper quadrant 07/17/2016 Hyperparathyroidism, unspecified 12/22/2006 documented as of this encounter (statuses as of 05/21/2023) [facility]06-28-2023 Miscellaneous Notes* Telephone Encounter - Cholo Soriano MD - 05/20/2023 2:34 PM EDT The following approved medication requests have been transmitted electronically. Requested Prescriptions Signed Prescriptions Disp Refills hydroCHLOROthiazide 25 mg tablet 90 tablet 1 Sig: Take 1 tablet by mouth once daily. Authorizing Provider: CHOLO SORIANO MD * Telephone Encounter - Luis Alberto Sommers LPN - 05/20/2023 2:31 PM EDT Last refill 11/25/22 Qty: 90 with 1 refill JEOVANY 04/24/23 NOV 10/26/23 Luis Alberto Sommers LPN documented in this encounterUniversity Hospitals Parma [facility] Center06-27-2023 History of Past illness Narrative* Problem Noted Date Resolved Date IRB 18-444: [facility] Using Skyrob[employer] Platform for Chronic Care of Patients with AF after Ablation Procedure- Randomized Study 12/02/2018 05/13/2019 Sciatica of right side 08/11/2017 8 A-fib 06/24/2017 07/06/2017 Lumbar compression fracture 04/15/201703/24 Paronychia of finger 05/14/2016 12/17/2016 Atrial fibrillation, persistent 09/04/2015 12/27/2018 Overview: S/p DCCV Oct 2016 and PV! Jun 23 2017. [id number] risk score: 3. On Flecainide and chronic AC with Rivaroxaban. Plan: Monitor in the CICU Will hold AC for now due to concern for oropharynx bleeding after PVI. Daily ECgs Continue Flecainide F/u EP recs. Vitamin D deficiency 08/17/2013 01/07/2018 Secondary hyperparathyroidism, non-renal 005 01/07/2018 Abdominal pain, left upper quadrant 07/17/2016 Hyperparathyroidism, unspecified 12/22/2006 documented as of this encounter (statuses as of 05/19/2023) [facility] History of Present illness Narrative* [...] PRESENT ILLNESS: Since the last visit with me on 03/2022, Ms. Campuzano has been doing [...] be communicated with the ordering provider via [employer] staff message or phone message by Imaging Support Services within 2 business days of report finalization. 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 Morbid Obesity, BMI 40 4. pulmonary hypertension RSVP 35 mmHg on ECHO from 2019. Likely due to sleep apnea Repeat echo Natalia Wood MD, DEE Staff, Respiratory [place] [facility] documented in this encounterUniversity Hospitals Parma [facility] Center06-02-2023 Instructions* Patient Instructions* Cholo Soriano MD - 04/24/2023 8:36 AM EDT Please bring in copies of your power of district attorney for health care and living will. Please get labs done on or after 10/09/2023 prior to your next visit. documented in this encounterUniversity Hospitals Parma Medical Center06-02-2023 History of Present illness Narrative* Cholo Soriano MD - 04/24/2023 8:00 AM EDT Medicare Yearly Visit Medical B eligibilty date NA Date of last exam 04/11/2022 PAST MEDICAL HISTORY PAST MEDICAL HISTORY Diagnosis Date Acquired hypothyroidism 07/16/2016 Continue home Levothyroxine dose. Calcaneal spur 11/01/2007 Diaphragmatic hernia without mention of obstruction or gangrene Encounter for gynecological examination 04/03/2021 Seeing UPHOLSTERY MECHANIC Essential hypertension 09/24/2010 On Atenolol and HCTZ Generalized osteoarthrosis, unspecified site 02/11/2007 GERD without esophagitis Hip arthritis 07/23/2009 History of cardiac radiofrequency ablation Hyperparathyroidism, unspecified (HCC) s/p PV! 06/23/17 Hyperuricemia 06/06/2013 Lumbar compression fracture (HCC) 04/15/2017 Lumbar degenerative disc disease 04/15/2017 Mixed hyperglyceridemia 12/15/2016 Morbid obesity due to excess calories ([facility]) 07/03/[address] nodules [address] 08/24/2018 [...] in the ICU and transferred to the [facility]. - discussed with the ENT team, r [...] Procedure Laterality Date COLONOSCOP W/ OR W/O [facility] SPEC 09/28/2014 Colonoscopy COLONOSCOP W/ OR W/O [facility] SPEC 04/11/2019 Colonoscopy, repeat 5 years COLONOSCOPY 03/29/2001 Repeat in 5-2010 EGD 11/06/2003 for c/o chest pain EGD W/O [facility] SPECIMEN W/BX 05/20/2011 HEART SURGERY [...] time. List of current specialists seen: Dr. Muñoz (Cardio), Dr. Moore (ortho: Knee and Hip) and UPHOLSTERY MECHANIC Dr. Mehta (Pulm) for ROZ Dr. Ashley [...] Pulse (!) 54 Ht 171.5 cm (5' 7.5) Wt 116.6 kg (257 lb) BMI 39.66 [...] gangrene Encounter for gynecological examination 04/03/2021 Seeing UPHOLSTERY MECHANIC Essential hypertension 09/24/2010 On Atenolol and HCTZ [...] in the ICU and transferred to the [facility]. - discussed with the ENT team, r [...] Pulse (!) 54 Ht 171.5 cm (5' 7.5) Wt 116.6 kg (257 lb) BMI 39.66 [...] Abs Lymph 1.00 - 4.00 k/uL 2.46 [place]% % 6.4 Abs [place] <0.87 k/uL 0.50 Eosin% % 1.8 Abs [...] Negative Ketones, Urine Trace, Negative Negative Specific [place], Ur 1.005 - 1.030 1.021 Hemoglobin/Blood,Ur Negative, [...] which included preparing to see the patient, [id number] patient care, completing clinical documentation, performing a medically appropriate examination, counseling and educating the patient/family/caregiver and ordering medications, tests, or procedures. Cholo Soriano MD documented in this encounterUniversity Hospitals Parma [facility] Center03-14-2023 History of Past illness Narrative* Problem Noted Date Resolved Date IRB 18-384: [facility] Using Sky[employer] Platform for Chronic Care of Patients with AF after Ablation Procedure- Randomized Study 12/02/2018 05/13/2019 Sciatica of right side 08/11/2017 8 A-fib 06/24/2017 07/06/2017 Lumbar compression fracture 04/15/201703/24 Paronychia of finger 05/14/2016 12/17/2016 Atrial fibrillation, persistent 09/04/2015 12/27/2018 Overview: S/p DCCV Oct 2016 and PV! Jun 23 2017. [id number] risk score: 3. On Flecainide and chronic AC with Rivaroxaban. Plan: Monitor in the CICU Will hold AC for now due to concern for oropharynx bleeding after PVI. Daily ECgs Continue Flecainide F/u EP recs. Vitamin D deficiency 08/17/2013 01/07/2018 Secondary hyperparathyroidism, non-renal 005 01/07/2018 Abdominal pain, left upper quadrant 07/17/2016 Hyperparathyroidism, unspecified 12/22/2006 documented as of this encounter (statuses as of 02/03/2023) [facility] Miscellaneous Notes* Telephone Encounter - Ashley Rich Victor M Posadas - 02/03/2023 2:30 PM EDT We [...] follow-up note scanned into her chart. Ashley Naranjodyan Posadas documented in this encounterUniversity Hospitals Parma Medical Center01-06-2023 History of Past illness Narrative* Problem Noted Date Resolved Date IRB 18-624: [facility] Using [employer] for Chronic Care of Patients with AF after Ablation Procedure- Randomized Study 12/02/2018 05/13/2019 Sciatica of right side 08/11/2017 8 A-fib 06/24/2017 07/06/2017 Lumbar compression fracture 04/15/201703/24 Paronychia of finger 05/14/2016 12/17/2016 Atrial fibrillation, persistent 09/04/2015 12/27/2018 Overview: S/p DCCV Oct 2016 and PV! Jun 23 2017. [id number] risk score: 3. On Flecainide and chronic AC with Rivaroxaban. Plan: Monitor in the CICU Will hold AC for now due to concern for oropharynx bleeding after PVI. Daily ECgs Continue Flecainide F/u EP recs. Vitamin D deficiency 08/17/2013 01/07/2018 Secondary hyperparathyroidism, non-renal 005 01/07/2018 Abdominal pain, left upper quadrant 07/17/2016 Hyperparathyroidism, unspecified 12/22/2006 documented as of this encounter (statuses as of 11/28/2022) [facility] History of Present illness Narrative* Nirmal Fisher, DO - 11/27/2022 1:29 PM EST CONSULT ORTHOPAEDIC: HIP PRIMARY CARE PHYSICIAN: Cholo Soriano MD REFERRING PROVIDER: Cholo Soriano [address] [facility] [place] [address] ASSESSMENT & PLAN: Impression: Left Hip Moderate [...] bursitis. We wrote her prescription get a handGigalocalp parking placard. If after 6 weeks of [...] which include walking 2 blocks, gardening, doing operating room manager, participatingin family activities, enjoying hobbies, exercise, rising [...] gangrene Encounter for gynecological examination 04/03/2021 Seeing UPHOLSTERY MECHANIC Essential hypertension 09/24/2010 On Atenolol and HCTZ [...] in the ICU and transferred to the [facility]. - discussed with the ENT team, r [...] Lodine [Etodolac], and Penicillins MEDICATIONS: Order #: [id number] Order #: [id number] Order #: [id number] Order #: [id number] Order #: [id number] Order #: [id number] Order #: [id number] Order #: [id number] Order #: [id number] Order #: [id number] PHYSICAL EXAM There were no vitals taken [...] 2022 TIME: 2:35 PM documented in this encounterUniversity Hospitals [facility] Center01-03-2023 Miscellaneous Notes* Telephone Encounter - Italia Zapata [...] you. Italia Zapata LPN documented in this encounterUniversity Hospitals Parma [facility] Center12-15-2022 History of Past illness Narrative* Problem Noted Date Resolved Date IRB 38-690: [facility] Using [employer] Platform for Chronic Care of Patients with AF after Ablation Procedure- Randomized Study 12/02/2018 05/13/2019 Sciatica of right side 08/11/2017 8 A-fib 06/24/2017 07/06/2017 Lumbar compression fracture 04/15/201703/24 Paronychia of finger 05/14/2016 12/17/2016 Atrial fibrillation, persistent 09/04/2015 12/27/2018 Overview: S/p DCCV Oct 2016 and PV! Jun 23 2017. [id number] risk score: 3. On Flecainide and chronic AC with Rivaroxaban. Plan: Monitor in the CICU Will hold AC for now due to concern for oropharynx bleeding after PVI. Daily ECgs Continue Flecainide F/u EP recs. Vitamin D deficiency 08/17/2013 01/07/2018 Secondary hyperparathyroidism, non-renal 005 01/07/2018 Abdominal pain, left upper quadrant 07/17/2016 Hyperparathyroidism, unspecified 12/22/2006 documented as of this encounter (statuses as of 11/06/2022) [facility] Miscellaneous Notes* Telephone Encounter - Denita Richardson RN - 11/06/2022 4:45 PM EST Pt called and is notified of providers results. Pt voices understanding. Denita Richardson RN * Telephone Encounter - Cholo Soriano MD - 11/06/2022 4:35 PM EST Let patient know x-ray of left hip was read as ok. documented in this encounterUniversity Hospitals Parma Medical Center12-15-2022 History of Present illness Narrative* Samira Doe, RT(R) - 11/06/2022 10:30 AM EST Radiology Service Progress Note PATIENT NAME: Katelynn Campuzano DATE OF SERVICE: November 06, 2022 TIME: 10:27 AM PATIENT IDENTITY VERIFICATION [...] Yes RADIOLOGY DEPARTMENT: General X-ray: Exam(s) Completed: Pelvis X-Ray: Pelvis with Hip Left PERIPHERAL IV DATA: Not applicable SIGNED BY: RT Declan(R) November 06, 2022 10:27 AM documented in this encounterUniversity Hospitals Parma Medical Center12-03-2022 Miscellaneous Notes* Telephone Encounter - Petra Patel LPN - 10/25/2022 9:12 AM EST Patient scheduled 11/05/22. Refused sooner appointment with academic hospitalist. * Telephone Encounter - Luis Alberto Sommers LPN - 10/25/2022 8:54 AM EST Left message for pt to contact office. Luis Alberto Sommers LPN * Telephone Encounter - Cholo Soriano MD - 10/24/2022 5:17 PM EST See if patient able to be seen in officie with Hilda Harden or myself. documented in this [facility]12-01-2022 Miscellaneous Notes* Telephone Encounter - Shirley Wise LPN - 10/23/2022 9:54 AM EST Pt returned call and given below test results. Shirley Wise LPN * Telephone Encounter - Ree Ngo RN - 10/23/2022 9:19 AM EST Left message for patient to call office. Ree Ngo RN * Telephone Encounter - Ree Ngo RN - 10/23/2022 9:19 AM EST ----- Message from Magda Moise MD sent at 10/23/2022 8:53 AM EST ----- Notify patient that the LLE venous duplex was negative for dvt. documented in this encounterUniversity Hospitals Parma Medical Center11-28-2022 History of Present illness Narrative* Magda Moise MD - 10/20/2022 8:52 AM EST Screen Stretcher offered: Patient declines. 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 - discussed with the ENT team, r [...] Allergen Noted Reaction SULFA (SULFONAMIDE ANTIBIOTICS) 09/02/2005 [place] AZUL [ETODOLAC] 07/11/2009 Unknown PENICILLINS 09/02/2005 Unknown Fully [...] Low Magda Hanson MD documented in this encounterUniversity Hospitals Parma Medical Center11-27-2022 History of Past illness Narrative* Problem Noted Date Resolved Date IRB 18-734: [facility] Using [employer] Platform for Chronic Care of Patients with AF after Ablation Procedure- Randomized Study 12/02/2018 05/13/2019 Sciatica of right side 08/11/2017 8 A-fib 06/24/2017 07/06/2017 Lumbar compression fracture 04/15/201703/24 Paronychia of finger 05/14/2016 12/17/2016 Atrial fibrillation, persistent 09/04/2015 12/27/2018 Overview: S/p DCCV Oct 2016 and PV! Jun 23 2017. [id number] risk score: 3. On Flecainide and chronic AC with Rivaroxaban. Plan: Monitor in the CICU Will hold AC for now due to concern for oropharynx bleeding after PVI. Daily ECgs Continue Flecainide F/u EP recs. Vitamin D deficiency 08/17/2013 01/07/2018 Secondary hyperparathyroidism, non-renal 005 01/07/2018 Abdominal pain, left upper quadrant 07/17/2016 Hyperparathyroidism, unspecified 12/22/2006 documented as of this encounter (statuses as of 10/19/2022) [facility]11-23-2022 Instructions* Patient Instructions* Cholo Soriano MD - 10/15/2022 12:28 PM EST Please get labs and urine test done on or after 04/03/2023 prior to your next visit. documented in this encounterUniversity Hospitals Parma Medical Center11-23-2022 History of Present illness Narrative* Cholo Soriano [...] gangrene Encounter for gynecological examination 04/03/2021 Seeing UPHOLSTERY MECHANIC Essential hypertension 09/24/2010 On Atenolol and HCTZ [...] in the ICU and transferred to the [facility]. - discussed with the ENT team, r [...] Abs Lymph 1.00 - 4.00 k/uL 1.44 Redwood% % 6.5 Abs Redwood <0.87 k/uL 0.41 Eosin% % 1.9 Abs [...] Negative Negative Ketones, Urine Negative Negative Specific [place], Ur 1.005 - 1.030 1.019 Hemoglobin/Blood,Ur Negative [...] prior Cholo Soriano MD documented in this encounterUniversity Hospitals Parma Medical Center11-18-2022 Miscellaneous Notes* Letter - Mammography Coordinator - 10/10/2022 11:29 AM EST October 12, 2022 PID: [id number] Katelynn Campuzano [address] [place] [address] Dear Ms. Campuzano, We are pleased to [...] report will be kept on [facility] at [facility] as part of your permanent medical record and are available for your continuing care. Thank you for allowing us to help in meeting your health care needs. Sincerely, Dr. Zhang Interpreting Radiologist [facility] (Normal over 40) documented in this encounterUniversity Hospitals Parma Medical Center11-18-2022 History of Present illness Narrative* Evelyn Beal RT(R) - 10/10/2022 9:30 AM EST Radiology [...] IV DATA: Not applicable SIGNED BY: RT Breanna(Yani) October 10, 2022 9:27 AM documented in this encounterUniversity Hospitals Parma Medical Center10-27-2022 History of Present illness Narrative* Nancy Swenson APRN.DEBURRER MACHINE - 09/18/2022 11:57 AM EDT CC: Patient [...] gangrene Encounter for gynecological examination 04/03/2021 Seeing UPHOLSTERY MECHANIC Essential hypertension 09/24/2010 On Atenolol and HCTZ [...] in the ICU and transferred to the [facility]. - discussed with the ENT team, r [...] symptoms occur. Patient agreeable to treatment plan. Nancy Swenson APRN.DEBURRER MACHINE documented in this encounterUniversity Hospitals Parma Medical Center10-27-2022 Miscellaneous Notes* Telephone Encounter - Hilda Snyder PA-C - 09/18/2022 11:25 AM EDT noted * Telephone Encounter - Irish Alexander LPN - 09/18/2022 10:59 AM EDT Patient calling she took home COVID test last evening but it was , said it was negative. Today she is coughing more and has fever. Patient was wanting to have PCR test done. Advised to go to [facility] for evaluation with a provider. Patient plans to do that. documented in this encounterUniversity Hospitals Parma Medical Center10-07-2022 History of Past illness Narrative* Problem Noted Date Resolved Date IRB 18-444: [facility] Using [employer] Platform for Chronic Care of Patients with AF after Ablation Procedure- Randomized Study 12/02/2018 05/13/2019 Sciatica of right side 08/11/2017 8 A-fib 06/24/2017 07/06/2017 Lumbar compression fracture 04/15/201703/24 Paronychia of finger 05/14/2016 12/17/2016 Atrial fibrillation, persistent 09/04/2015 12/27/2018 Overview: S/p DCCV Oct 2016 and PV! Jun 23 2017. [id number] risk score: 3. On Flecainide and chronic [...] of this encounter (statuses as of 08/29/2022) [facility]10-07-2022 History of Present illness Narrative* Nancy Swenson APRN.DEBURRER MACHINE - 08/29/2022 3:30 PM EDT Images from [...] history is provided by the patient. No manager language was used. Review of Systems Constitutional: Negative. [...] gangrene Encounter for gynecological examination 04/03/2021 Seeing UPHOLSTERY MECHANIC Essential hypertension 09/24/2010 On Atenolol and HCTZ [...] in the ICU and transferred to the [facility]. - discussed with the ENT team, r [...] Patient was okay with this care plan. Nancy Swenson APRN.DEBURRER MACHINE documented in this encounterUniversity Hospitals Parma Medical Center09-24-2022 Miscellaneous Notes* Telephone Encounter - Janeen Mrak Doherty - 08/16/2022 10:21 AM EDT Vaccine updated. Janeenirma Flores Bessy documented in this encounterUniversity Hospitals Parma Medical Center09-15-2022 Chief complaint+Reason for visit Narrative* Chief Complaint THYROID NODULE F/U THYROID U/S 08/07 1 Y FU COVID-19 COVID POS Reason for Visit Thyroid nodule Essential (primary) hypertension Paroxysmal atrial fibrillation [facility] Work Phone: 1(897) 367-301109-15-2022 Chief complaint+Reason for visit Narrative * Chief Complaint THYROID NODULE F/U THYROID U/S 08/07 1 Y FU COVID-19 COVID POS CHEST PRESSURE Reason for Visit Thyroid nodule Essential (primary) hypertension Paroxysmal atrial fibrillation [facility] Work Phone: 1(975) 400-179207-22-2022 Miscellaneous Notes* Telephone Encounter - Luis Alberto Sommers LPN - 06/13/2022 11:59 AM EDT Last refill 10/04/21 Qty: 90 with 1 refill JEOVANY 04/11/22 NOV 10/15/22 Luis Alberto Sommers LPN documented in this encounterUniversity Hospitals Parma Medical Center06-27-2022 History of Present illness Narrative* Lizbeth Driver LPN - 05/19/2022 9:[address] Briscoe, Katelynn was provided with gel powerstep inserts, size 9, and instructed/educated in its application, wear, and care. All questions were answered, and patient was able to demonstrate competence with the necessary skills to utilize the above equipment. Lizbeth Driver LPN * Ladi Briscoe - 05/19/2022 9:27 AM EDT Images [...] gangrene Encounter for gynecological examination 04/03/2021 Seeing UPHOLSTERY MECHANIC Essential hypertension 09/24/2010 On Atenolol and HCTZ [...] in the ICU and transferred to the [facility]. - discussed with the ENT team, r [...] to hold on this. 7. F/u prn Ladi Briscoe DPM Podiatry [address] [facility] [address] Dept: [phone] Dept * Darby Ramos RN - 05/19/2022 [...] Units: Years Frequency: Continuous documented in this encounterUniversity Hospitals Parma Medical Center06-27-2022 Instructions* Patient Instructions* Ladi Briscoe - 05/19/2022 9:35 AM EDT Powerstep Original Full length. Can purchase at [employer] here in [place], [employer] in [place] or [place]. Also can find in [place] in [facility]. Powersteps can also be purchased online, starting [...] everything fits well together documented in this encounterUniversity Hospitals Parma Medical Center06-27-2022 History of Present illness Narrative* RT Declan(R) [...] 19, 2022 8:56 AM documented in this encounterUniversity Hospitals Parma Medical Center06-15-2022 History of Present illness Narrative* Natalia Wood [...] Date(s) Administered COVID-19 vaccine, age 12+ yr ([employer] - [employer]) 02/19/2022 COVID-19 vaccine, age 12+ yr ([employer] - [employer]) 12/26/2020 01/16/2021 08/19/2021 H1N1 [...] Pulse (!) 54 Ht 170.2 cm (5' 7) Wt 117.9 kg (260 lb) SpO2 97% [...] manage CPAP orders if patient prefers (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 Obesity, Class II, [...] with plan as stated above. Alta Gauthier APRN-MIGUEL documented in this encounterUniversity Hospitals Parma Medical Center06-13-2022 History of Present illness Narrative* Shirley Ramirez, RT(R) - 05/05/2022 8:00 AM EDT Radiology Service [...] 05, 2022 10:27 AM documented in this encounterUniversity Hospitals Parma Medical Center06-07-2022 Miscellaneous Notes* Telephone Encounter - Luis Alberto Sommers LPN - 04/29/2022 2:41 PM EDT Pt notified of same. Luis Alberto Sommers LPN * Telephone Encounter - Hilda Snyder PA-C - 04/29/2022 2:30 PM EDT Labs are normal. US shows stable renal cysts. Hilda Snyder PA-C documented in this encounterUniversity Hospitals Parma Medical Center06-07-2022 Miscellaneous Notes* Telephone Encounter - Hilda Snyder [...] oarrs report completed: N/A PLEASE REVIEW ON EPIC Follow up: 10/15/22-6 month F/U with PCP [place] Pagan MA documented in this encounterUniversity Hospitals Parma Medical Center06-06-2022 History of Present illness Narrative* RT Mary(R) - 04/28/2022 8:30 AM EDT Radiology Service [...] 28, 2022 2:21 PM documented in this encounterUniversity Hospitals Parma Medical Center05-21-2022 History of Past illness Narrative* Problem Noted Date Resolved Date IRB 18-444: [facility] Using [employer] Platform for Chronic Care of Patients with AF after Ablation Procedure- Randomized Study 12/02/2018 05/13/2019 Sciatica of right side 08/11/2017 8 A-fib 06/24/2017 07/06/2017 Lumbar compression fracture 04/15/201703/24 Paronychia of finger 05/14/2016 12/17/2016 Atrial fibrillation, persistent 09/04/2015 12/27/2018 Overview: S/p DCCV Oct 2016 and PV! Jun 23 2017. [id number] risk score: 3. On Flecainide and chronic [...] of this encounter (statuses as of 04/13/2022) [facility]05-20-2022 Instructions* Patient Instructions* Cholo Soriano MD - 04/11/2022 8:45 AM EDT Please go to the health dept to get a Tdap (tetnus booster) Please get labs and urine test done on or after 09/26/2022 prior to your next visit. documented in this encounterUniversity Hospitals Parma Medical Center05-20-2022 History of Present illness Narrative* Cholo Soriano MD - 04/11/2022 8:10 AM EDT Medicare Yearly Visit Medical B eligibilty date NA Date of last exam 04/03/2021 PAST MEDICAL HISTORY PAST MEDICAL HISTORY Diagnosis Date Acquired hypothyroidism 07/16/2016 Continue home Levothyroxine dose. Calcaneal spur 11/01/2007 Diaphragmatic hernia without mention of obstruction or gangrene Encounter for gynecological examination 04/03/2021 Seeing UPHOLSTERY MECHANIC Essential hypertension 09/24/2010 On Atenolol and HCTZ Generalized osteoarthrosis, unspecified site 02/11/2007 GERD without esophagitis Hip arthritis 07/23/2009 History of cardiac radiofrequency ablation Hyperparathyroidism, unspecified ([facility]) s/p PV! 06/23/17 Hyperuricemia 06/06/2013 Lumbar compression fracture ([facility]) 04/15/2017 Lumbar degenerative disc disease 04/15/2017 Mixed hyperglyceridemia 12/15/2016 Morbid obesity due to excess calories ([facility]) 07/03/[address] nodules [address] 08/24/2018 [...] in the ICU and transferred to the [facility]. - discussed with the ENT team, r [...] time. List of current specialists seen: Dr. Muñoz, Dr. Moore (ortho: Knee and Hip) and UPHOLSTERY MECHANIC End of Live Planning discussed including patients [...] 60 Resp 16 Ht 173 cm (5' 8.11) Wt 119.3 kg (263 lb) SpO2 98% [...] gangrene Encounter for gynecological examination 04/03/2021 Seeing UPHOLSTERY MECHANIC Essential hypertension 09/24/2010 On Atenolol and HCTZ Generalized osteoarthrosis, unspecified site 02/11/2007 GERD without esophagitis Gilbert syndrome 11/13/2021 Hip arthritis 07/23/2009 History of cardiac radiofrequency ablation Hyperlipidemia, mixed 10/04/2021 Hyperparathyroidism, unspecified ([facility]) s/p PV! 06/23/17 Hyperuricemia 06/06/2013 Low serum vitamin B12 04/08/2021 Lumbar compression fracture ([facility]) 04/15/2017 Lumbar degenerative disc disease 04/15/2017 Medicare annual wellness visit, subsequent 04/03/2021 Last Done: 04/03/2021 Mixed hyperglyceridemia 12/15/2016 Morbid obesity due to excess calories ([facility]) 07/03/[address] Multiple lung nodules on CT 08/24/2018 [...] in the ICU and transferred to the [facility]. - discussed with the ENT team, r [...] 60 Resp 16 Ht 173 cm (5' 8.11) Wt 119.3 kg (263 lb) SpO2 98% [...] Abs Lymph 1.00 - 4.00 k/uL 1.60 Redwood% % 6.7 Abs Redwood <0.87 k/uL 0.38 Eosin% % 2.1 Abs [...] Negative Negative Ketones, Urine Negative Negative Specific Trimble, Ur 1.005 - 1.030 1.014 Hemoglobin/Blood,Ur Negative [...] point tenderness in this region is requested. Crystal Slicer: SEBAS Transcribe Date/Time: Mar 12 2022 11:55A [...] mg/day for 50+ - Patient was counseled [id number] by myself (the billing provider) for the [...] which included preparing to see the patient, [id number] patient care, completing clinical documentation, performing a medically appropriate examination, counseling and educating the patient/family/caregiver and ordering medications, tests, or procedures. Cholo Soriano MD documented in this encounterUniversity Hospitals Parma Medical Center04-25-2022 History of Past illness Narrative* Problem Noted Date Resolved Date IRB 18-234: [facility] Using [employer] Platform for Chronic Care of Patients with AF after Ablation Procedure- Randomized Study 12/02/2018 05/13/2019 Sciatica of right side 08/11/2017 8 A-fib 06/24/2017 07/06/2017 Paronychia of finger 05/14/2016 12/17/2016 Atrial fibrillation, persistent 09/04/2015 12/27/2018 Overview: S/p DCCV Oct 2016 and PV! Jun 23 2017. [id number] risk score: 3. On Flecainide and chronic [...] of this encounter (statuses as of 03/17/2022) [address]25-2022 Miscellaneous Notes* Telephone Encounter - Dianna Cruz RN - 03/17/2022 2:44 PM EDT Patient returned call and given provider's message below and patient verbalized understanding. Beatriz Cruz RN \ * Telephone Encounter - Luis Alberto Sommers LPN - 03/17/2022 2:08 PM EDT Left message for pt to contact office. Luis Alberto Sommers LPN * Telephone Encounter - Cholo Soriano MD - 03/17/2022 2:03 PM EDT Let patient know she can take aleve OTC 2 tabs twice a day. If upsets stomach switch to tylenol forpain. This will take 6-8 weeks to heal. * Telephone Encounter - Santiago Swenson MA - 03/17/2022 10:06 AM EDT Any other instructions for healing, time frame, other ways to help the process? Santiago Swenson MA * Telephone Encounter - Cholo Soriano MD - 03/16/2022 12:37 PM EDT Let patient know the rib x-rays do show a suspected non-displaced right 5th rib fracture. documented in this encounterUniversity Hospitals Parma Medical Center04-20-2022 History of Present illness Narrative* Samira Doe, RT(R) - 03/12/2022 9:30 AM EDT Radiology Service Progress Note PATIENT NAME: Katelynn Campuzano DATE OF SERVICE: March 12, 2022 TIME: 10:00 AM PATIENT IDENTITY VERIFICATION COMPLETED USING TWO [...] Yes RADIOLOGY DEPARTMENT: General X-ray: Exam(s) Completed: Rib X-Ray: Right PERIPHERAL IV DATA: Not applicable SIGNED BY: RT Declan(R) March 12, 2022 10:00 AM documented in this encounterUniversity Hospitals Parma Medical Center04-05-2022 History of Present illness Narrative* Eber Moore MD - 02/25/2022 8:05 AM EDT Images from the original note were not included. DEPARTMENT OF ORTHOPAEDICS PATIENT INFO: Katelynn Campuzano 71 year old REFERRING M.D.: Jay Goodman [address] [address] HISTORY CHIEF COMPLAINT: right hip HPI: Katelynn [...] gangrene Encounter for gynecological examination 04/03/2021 Seeing UPHOLSTERY MECHANIC Essential hypertension 09/24/2010 On Atenolol and HCTZ [...] in the ICU and transferred to the [facility]. - discussed with the ENT team, r [...] 2 years. Eber Moore MD Orthopaedic Surgery [phone] documented in this encounterUniversity Hospitals Parma Medical Center04-05-2022 History of Present illness Narrative* Concepcion Deedee, CT - 02/25/2022 7:40 AM EDT Radiology Service [...] 25, 2022 7:57 AM documented in this encounterUniversity Hospitals Parma Medical Center01-10-2019 History of Past illness Narrative* Problem Noted Date Resolved Date IRB 18-444: [facility] Using [employer] Platform for Chronic Care of Patients with AF after Ablation Procedure- Randomized Study 12/02/2018 05/13/2019 Sciatica of right side 08/11/2017 8 A-fib 06/24/2017 07/06/2017 Paronychia of finger 05/14/2016 12/17/2016 Atrial fibrillation, persistent 09/04/2015 12/27/2018 Overview: S/p DCCV Oct 2016 and PV! Jun 23 2017. [id number] risk score: 3. On Flecainide and chronic [...] of this encounter (statuses as of 02/25/2022) [facility] History of Past illness Narrative* Problem Noted Date Resolved Date IRB 18444: [facility] Using [employer] Platform for Chronic Care of Patients with AF after Ablation Procedure- Randomized Study 12/02/2018 05/13/2019 Sciatica of right side 08/11/2017 8 A-fib 06/24/2017 07/06/2017 Paronychia of finger 05/14/2016 12/17/2016 Atrial fibrillation, persistent 09/04/2015 12/27/2018 Overview: S/p DCCV Oct 2016 and PV! Jun 23 2017. [id number] risk score: 3. On Flecainide and chronic [...] of this encounter (statuses as of 02/26/2022) [facility] History of Past illness Narrative* Problem Noted Date Resolved Date IRB 18-104: [facility] [place] [facility] Using [employer] Platform for Chronic Care of Patients with AF after Ablation Procedure- Randomized Study 12/02/2018 05/13/2019 Sciatica of right side 08/11/2017 8 A-fib 06/24/2017 07/06/2017 Lumbar compression fracture 04/15/201703/24 Paronychia of finger 05/14/2016 12/17/2016 Atrial fibrillation, persistent 09/04/2015 12/27/2018 Overview: S/p DCCV Oct 2016 and PV! Jun 23 2017. [id number] risk score: 3. On Flecainide and chronic [...] of this encounter (statuses as of 04/29/2022) [facility] History of Past illness Narrative* Problem Noted Date Resolved Date IRB 18444: AFib Clinic [facility] Using [employer] Platform for Chronic Care of Patients with AF after Ablation Procedure- Randomized Study 12/02/2018 05/13/2019 Sciatica of right side 08/11/2017 8 A-fib 06/24/2017 07/06/2017 Lumbar compression fracture 04/15/201703/24 Paronychia of finger 05/14/2016 12/17/2016 Atrial fibrillation, persistent 09/04/2015 12/27/2018 Overview: S/p DCCV Oct 2016 and PV! Jun 23 2017. [id number] risk score: 3. On Flecainide and chronic [...] of this encounter (statuses as of 04/29/2022) [facility] of Past illness Narrative* Problem Noted Date Resolved Date IRB 18444: [facility] Using [employer] Platform for Chronic Care of Patients with AF after Ablation Procedure- Randomized Study 12/02/2018 05/13/2019 Sciatica of right side 08/11/2017 8 A-fib 06/24/2017 07/06/2017 Lumbar compression fracture 04/15/201703/24 Paronychia of finger 05/14/2016 12/17/2016 Atrial fibrillation, persistent 09/04/2015 12/27/2018 Overview: S/p DCCV Oct 2016 and PV! Jun 23 2017. [id number] risk score: 3. On Flecainide and chronic [...] of this encounter (statuses as of 05/06/2022) [facility] of Past illness Narrative* Problem Noted Date Resolved Date IRB 18-034: [facility] Using [employer] Platform for Chronic Care of Patients with AF after Ablation Procedure- Randomized Study 12/02/2018 05/13/2019 Sciatica of right side 08/11/2017 8 A-fib 06/24/2017 07/06/2017 Lumbar compression fracture 04/15/201703/24 Paronychia of finger 05/14/2016 12/17/2016 Atrial fibrillation, persistent 09/04/2015 12/27/2018 Overview: S/p DCCV Oct 2016 and PV! Jun 23 2017. [id number] risk score: 3. On Flecainide and chronic [...] of this encounter (statuses as of 05/07/2022) [facility] of [facility] illness Narrative* Problem Noted Date Resolved Date IRB 18-444: [facility] Using [employer] Platform for Chronic Care of Patients with AF after Ablation Procedure- Randomized Study 12/02/2018 05/13/2019 Sciatica of right side 08/11/2017 8 A-fib 06/24/2017 07/06/2017 Lumbar compression fracture 04/15/20172 Paronychia of finger 05/14/2016 12/17/2016 Atrial fibrillation, persistent 09/04/2015 12/27/2018 Overview: S/p DCCV Oct 2016 and PV! Jun 23 2017. [id number] risk score: 3. On Flecainide and chronic [...] of this encounter (statuses as of 05/19/2022) [facility] of [facility] illness Narrative* Problem Noted Date Resolved Date IRB 18-444: [facility] Using [employer] Platform for Chronic Care of Patients with AF after Ablation Procedure- Randomized Study 12/02/2018 05/13/2019 Sciatica of right side 08/11/2017 8 A-fib 06/24/2017 07/06/2017 Lumbar compression fracture 04/15/201703/24 Paronychia of finger 05/14/2016 12/17/2016 Atrial fibrillation, persistent 09/04/2015 12/27/2018 Overview: S/p DCCV Oct 2016 and PV! Jun 23 2017. [id number] risk score: 3. On Flecainide and chronic [...] of this encounter (statuses as of 05/20/2022) [facility] Narrative* Problem Noted Date Resolved Date IRB 18444: [facility] [place] [facility] Using [employer] Platform for Chronic Care of Patients with AF after Ablation Procedure- Randomized Study 12/02/2018 05/13/2019 Sciatica of right side 08/11/2017 8 A-fib 06/24/2017 07/06/2017 Lumbar compression fracture 04/15/201703/24 Paronychia of finger 05/14/2016 12/17/2016 Atrial fibrillation, persistent 09/04/2015 12/27/2018 Overview: S/p DCCV Oct 2016 and PV! Jun 23 2017. [id number] risk score: 3. On Flecainide and chronic [...] of this encounter (statuses as of 06/13/2022) [facility]01-10[facility]2019 History of Past illness Narrative* Problem Noted Date Resolved Date IRB 18444: [facility] Using [employer] Platform for Chronic Care of Patients with AF after Ablation Procedure- Randomized Study 12/02/2018 05/13/2019 Sciatica of right side 08/11/2017 8 A-fib 06/24/2017 07/06/2017 Lumbar compression fracture 04/15/201703/24 Paronychia of finger 05/14/2016 12/17/2016 Atrial fibrillation, persistent 09/04/2015 12/27/2018 Overview: S/p DCCV Oct 2016 and PV! Jun 23 2017. [id number] risk score: 3. On Flecainide and chronic [...] of this encounter (statuses as of 08/16/2022) [facility]01-10[facility]2019 History of Past illness Narrative* Problem Noted Date Resolved Date IRB 18-569: [facility] Using [employer] Platform for Chronic Care of Patients with AF after Ablation Procedure- Randomized Study 12/02/2018 05/13/2019 Sciatica of right side 08/11/2017 8 A-fib 06/24/2017 07/06/2017 Lumbar compression fracture 04/15/201703/24 Paronychia of finger 05/14/2016 12/17/2016 Atrial fibrillation, persistent 09/04/2015 12/27/2018 Overview: S/p DCCV Oct 2016 and PV! Jun 23 2017. [id number] risk score: 3. On Flecainide and chronic [...] of this encounter (statuses as of 09/10/2022) [facility]01[facility]2019 History of Past illness Narrative* Problem Noted Date Resolved Date IRB 18444: [facility] Using [employer] Platform for Chronic Care of Patients with AF after Ablation Procedure- Randomized Study 12/02/2018 05/13/2019 Sciatica of right side 08/11/2017 8 A-fib 06/24/2017 07/06/2017 Lumbar compression fracture 04/15/201703/24 Paronychia of finger 05/14/2016 12/17/2016 Atrial fibrillation, persistent 09/04/2015 12/27/2018 Overview: S/p DCCV Oct 2016 and PV! Jun 23 2017. [id number] risk score: 3. On Flecainide and chronic [...] of this encounter (statuses as of 09/18/2022) [facility]01[facility]2019 History of Past illness Narrative* Problem Noted Date Resolved Date IRB 18444: [facility] Using [employer] Platform for Chronic Care of Patients with AF after Ablation Procedure- Randomized Study 12/02/2018 05/13/2019 Sciatica of right side 08/11/2017 8 A-fib 06/24/2017 07/06/2017 Lumbar compression fracture 04/15/201703/24 Paronychia of finger 05/14/2016 12/17/2016 Atrial fibrillation, persistent 09/04/2015 12/27/2018 Overview: S/p DCCV Oct 2016 and PV! Jun 23 2017. [id number] risk score: 3. On Flecainide and chronic [...] of this encounter (statuses as of 09/18/2022) [facility] History of Past illness Narrative* Problem Noted Date Resolved Date IRB 18444: [facility] Using [employer] Platform for Chronic Care of Patients with AF after Ablation Procedure- Randomized Study 12/02/2018 05/13/2019 Sciatica of right side 08/11/2017 8 A-fib 06/24/2017 07/06/2017 Lumbar compression fracture 04/15/201703/24 Paronychia of finger 05/14/2016 12/17/2016 Atrial fibrillation, persistent 09/04/2015 12/27/2018 Overview: S/p DCCV Oct 2016 and PV! Jun 23 2017. [id number]-JXZu risk score: 3. On Flecainide and chronic [...] of this encounter (statuses as of 09/19/2022) [facility]01[facility] History of Past illness Narrative* Problem Noted Date Resolved Date IRB 18044: [facility] Using [employer] Platform for Chronic Care of Patients with AF after Ablation Procedure- Randomized Study 12/02/2018 05/13/2019 Sciatica of right side 08/11/2017 8 A-fib 06/24/2017 07/06/2017 Lumbar compression fracture 04/15/201703/24 Paronychia of finger 05/14/2016 12/17/2016 Atrial fibrillation, persistent 09/04/2015 12/27/2018 Overview: S/p DCCV Oct 2016 and PV! Jun 23 2017. [id number] risk score: 3. On Flecainide and chronic [...] of this encounter (statuses as of 10/14/2022) [facility] History of Past illness Narrative* Problem Noted Date Resolved Date IRB 18-215: [facility] Using [employer] Platform for Chronic Care of Patients with AF after Ablation Procedure- Randomized Study 12/02/2018 05/13/2019 Sciatica of right side 08/11/2017 8 A-fib 06/24/2017 07/06/2017 Lumbar compression fracture 04/15/201703/24 Paronychia of finger 05/14/2016 12/17/2016 Atrial fibrillation, persistent 09/04/2015 12/27/2018 Overview: S/p DCCV Oct 2016 and PV! Jun 23 2017. [id number] risk score: 3. On Flecainide and chronic AC with Rivaroxaban. Plan: Monitor in the CICU Will hold AC for now due to concern for oropharynx bleeding after PVI. Daily ECgs Continue Flecainide F/u EP recs. Vitamin D deficiency 08/17/2013 01/07/2018 Secondary hyperparathyroidism, non-renal 005 01/07/2018 Abdominal pain, left upper quadrant 07/17/2016 Hyperparathyroidism, unspecified 12/22/2006 documented as of this encounter (statuses as of 10/20/2022) [facility]01[facility]2019 History of Past illness Narrative* Problem Noted Date Resolved Date IRB 18-444: [facility] Using [employer] Platform for Chronic Care of Patients with AF after Ablation Procedure- Randomized Study 12/02/2018 05/13/2019 Sciatica of right side 08/11/2017 8 A-fib 06/24/2017 07/06/2017 Lumbar compression fracture 04/15/201703/24 Paronychia of finger 05/14/2016 12/17/2016 Atrial fibrillation, persistent 09/04/2015 12/27/2018 Overview: S/p DCCV Oct 2016 and PV! Jun 23 2017. [id number] risk score: 3. On Flecainide and chronic AC with Rivaroxaban. Plan: Monitor in the CICU Will hold AC for now due to concern for oropharynx bleeding after PVI. Daily ECgs Continue Flecainide F/u EP recs. Vitamin D deficiency 08/17/2013 01/07/2018 Secondary hyperparathyroidism, non-renal 005 01/07/2018 Abdominal pain, left upper quadrant 07/17/2016 Hyperparathyroidism, unspecified 12/22/2006 documented as of this encounter (statuses as of 10/20/2022) [facility]01[facility]2019 History of Past illness Narrative* Problem Noted Date Resolved Date IRB 18-444: [facility] Using [employer] Platform for Chronic Care of Patients with AF after Ablation Procedure- Randomized Study 12/02/2018 05/13/2019 Sciatica of right side 08/11/2017 8 A-fib 06/24/2017 07/06/2017 Lumbar compression fracture 04/15/201703/24 Paronychia of finger 05/14/2016 12/17/2016 Atrial fibrillation, persistent 09/04/2015 12/27/2018 Overview: S/p DCCV Oct 2016 and PV! Jun 23 2017. [id number] risk score: 3. On Flecainide and chronic AC with Rivaroxaban. Plan: Monitor in the CICU Will hold AC for now due to concern for oropharynx bleeding after PVI. Daily ECgs Continue Flecainide F/u EP recs. Vitamin D deficiency 08/17/2013 01/07/2018 Secondary hyperparathyroidism, non-renal 005 01/07/2018 Abdominal pain, left upper quadrant 07/17/2016 Hyperparathyroidism, unspecified 12/22/2006 documented as of this encounter (statuses as of 10/23/2022) [facility]01[facility]2019 History of Past illness Narrative* Problem Noted Date Resolved Date IRB 18444: [facility] Using [employer] Platform for Chronic Care of Patients with AF after Ablation Procedure- Randomized Study 12/02/2018 05/13/2019 Sciatica of right side 08/11/2017 8 A-fib 06/24/2017 07/06/2017 Lumbar compression fracture 04/15/2017 052 Paronychia of finger 05/14/2016 12/17/2016 Atrial fibrillation, persistent 09/04/2015 12/27/2018 Overview: S/p DCCV Oct 2016 and PV! Jun 23 2017. [id number] risk score: 3. On Flecainide and chronic AC with Rivaroxaban. Plan: Monitor in the CICU Will hold AC for now due to concern for oropharynx bleeding after PVI. Daily ECgs Continue Flecainide F/u EP recs. Vitamin D deficiency 08/17/2013 01/07/2018 Secondary hyperparathyroidism, non-renal 005 01/07/2018 Abdominal pain, left upper quadrant 07/17/2016 Hyperparathyroidism, unspecified 12/22/2006 documented as of this encounter (statuses as of 10/25/2022) [facility]01[facility]2019 History of Past illness Narrative* Problem Noted Date Resolved Date IRB 1844: [facility] Using [employer] Platform for Chronic Care of Patients with AF after Ablation Procedure- Randomized Study 12/02/2018 05/13/2019 Sciatica of right side 08/11/2017 8 A-fib 06/24/2017 07/06/2017 Lumbar compression fracture 04/15/201703/24 Paronychia of finger 05/14/2016 12/17/2016 Atrial fibrillation, persistent 09/04/2015 12/27/2018 Overview: S/p DCCV Oct 2016 and PV! Jun 23 2017. [id number] risk score: 3. On Flecainide and chronic AC with Rivaroxaban. Plan: Monitor in the CICU Will hold AC for now due to concern for oropharynx bleeding after PVI. Daily ECgs Continue Flecainide F/u EP recs. Vitamin D deficiency 08/17/2013 01/07/2018 Secondary hyperparathyroidism, non-renal 005 01/07/2018 Abdominal pain, left upper quadrant 07/17/2016 Hyperparathyroidism, unspecified 12/22/2006 documented as of this encounter (statuses as of 11/27/2022) [facility]01-[facility]2019 History of Past illness Narrative* Problem Noted Date Resolved Date IRB 18-772: [facility] Using [employer] Platform for Chronic Care of Patients with AF after Ablation Procedure- Randomized Study 12/02/2018 05/13/2019 Sciatica of right side 08/11/2017 8 A-fib 06/24/2017 07/06/2017 Lumbar compression fracture 04/15/201703/24 Paronychia of finger 05/14/2016 12/17/2016 Atrial fibrillation, persistent 09/04/2015 12/27/2018 Overview: S/p DCCV Oct 2016 and PV! Jun 23 2017. [id number] risk score: 3. On Flecainide and chronic AC with Rivaroxaban. Plan: Monitor in the CICU Will hold AC for now due to concern for oropharynx bleeding after PVI. Daily ECgs Continue Flecainide F/u EP recs. Vitamin D deficiency 08/17/2013 01/07/2018 Secondary hyperparathyroidism, non-renal 005 01/07/2018 Abdominal pain, left upper quadrant 07/17/2016 Hyperparathyroidism, unspecified 12/22/2006 documented as of this encounter (statuses as of 04/24/2023) [facility]01-10[facility]2019 History of Past illness Narrative* Problem Noted Date Diagnosed Date Resolved Date IRB 18-444: [facility] Using [employer] Platform for Chronic Care of Patients with AF after Ablation Procedure- Randomized Study 12/02/2018 05/13/2019 Sciatica of right side 08/11/201701/07 A-fib 06/24/2017 07/06/2017 Lumbar compression fracture 04/15/2017 04/11/2022 Paronychia of finger 05/14/2016 017 Atrial fibrillation, persistent 09/04/2015 12/27/2018 Overview: S/p DCCV Oct 2016 and PV! Jun 23 2017. [id number] risk score: 3. On Flecainide and chronic AC with Rivaroxaban. Plan: Monitor in the CICU Will hold AC for now due to concern for oropharynx bleeding after PVI. Daily ECgs Continue Flecainide F/u EP recs. Vitamin D deficiency 08/17/2013 018 Secondary hyperparathyroidism, non-renal 09/02/2005 01/07/2018 Abdominal pain, left upper quadrant 07/17/2016 Hyperparathyroidism, unspecified 12/22/2006 documented as of this encounter (statuses as of 09/23/2023) [facility]01[facility] History of Past illness Narrative* Problem Noted Date Diagnosed Date Resolved Date IRB 18-444: [facility] Using [employer] Platform for Chronic Care of Patients with AF after Ablation Procedure- Randomized Study 12/02/2018 05/13/2019 Sciatica of right side 08/11/201701/07 A-fib 06/24/2017 07/06/2017 Lumbar compression fracture 04/15/2017 04/11/2022 Paronychia of finger 05/14/2016 017 Atrial fibrillation, persistent 09/04/2015 12/27/2018 Overview: S/p DCCV Oct 2016 and PV! Jun 23 2017. [id number]-FRWm risk score: 3. On Flecainide and chronic AC with Rivaroxaban. Plan: Monitor in the CICU Will hold AC for now due to concern for oropharynx bleeding after PVI. Daily ECgs Continue Flecainide F/u EP recs. Vitamin D deficiency 08/17/2013 018 Secondary hyperparathyroidism, non-renal 09/02/2005 01/07/2018 Abdominal pain, left upper quadrant 07/17/2016 Hyperparathyroidism, unspecified 12/22/2006 documented as of this encounter (statuses as of 09/27/2023) [facility]01[facility]2019 History of Past illness Narrative* Problem Noted Date Diagnosed Date Resolved Date IRB 18-444: [facility] Using [employer] Platform for Chronic Care of Patients with AF after Ablation Procedure- Randomized Study 12/02/2018 05/13/2019 Sciatica of right side 08/11/201701/07 A-fib 06/24/2017 07/06/2017 Lumbar compression fracture 04/15/2017 04/11/2022 Paronychia of finger 05/14/2016 017 Atrial fibrillation, persistent 09/04/2015 12/27/2018 Overview: S/p DCCV Oct 2016 and PV! Jun 23 2017. [id number] risk score: 3. On Flecainide and chronic AC with Rivaroxaban. Plan: Monitor in the CICU Will hold AC for now due to concern for oropharynx bleeding after PVI. Daily ECgs Continue Flecainide F/u EP recs. Vitamin D deficiency 08/17/2013 018 Secondary hyperparathyroidism, non-renal 09/02/2005 01/07/2018 Abdominal pain, left upper quadrant 07/17/2016 Hyperparathyroidism, unspecified 12/22/2006 documented as of this encounter (statuses as of 10/13/2023) [facility] History of Past illness Narrative* Problem Noted Date Diagnosed Date Resolved Date IRB 18-444: [facility] Using [employer] Platform for Chronic Care of Patients with AF after Ablation Procedure- Randomized Study 12/02/2018 05/13/2019 Sciatica of right side 08/11/201701/07 A-fib 06/24/2017 07/06/2017 Lumbar compression fracture 04/15/2017 04/11/2022 Paronychia of finger 05/14/2016 017 Atrial fibrillation, persistent 09/04/2015 12/27/2018 Overview: S/p DCCV Oct 2016 and PV! Jun 23 2017. [id number] risk score: 3. On Flecainide and chronic AC with Rivaroxaban. Plan: Monitor in the CICU Will hold AC for now due to concern for oropharynx bleeding after PVI. Daily ECgs Continue Flecainide F/u EP recs. Vitamin D deficiency 08/17/2013 018 Secondary hyperparathyroidism, non-renal 09/02/2005 01/07/2018 Abdominal pain, left upper quadrant 07/17/2016 Hyperparathyroidism, unspecified 12/22/2006 documented as of this encounter (statuses as of 10/15/2023) [facility]01-[facility]2019 History of Past illness Narrative* Problem Noted Date Diagnosed Date Resolved Date IRB 18444: [facility] Using [employer] Platform for Chronic Care of Patients with AF after Ablation Procedure- Randomized Study 12/02/2018 05/13/2019 Sciatica of right side 08/11/201701/07 A-fib 06/24/2017 07/06/2017 Lumbar compression fracture 04/15/2017 04/11/2022 Paronychia of finger 05/14/2016 017 Atrial fibrillation, persistent 09/04/2015 12/27/2018 Overview: S/p DCCV Oct 2016 and PV! Jun 23 2017. [id number] risk score: 3. On Flecainide and chronic AC with Rivaroxaban. Plan: Monitor in the CICU Will hold AC for now due to concern for oropharynx bleeding after PVI. Daily ECgs Continue Flecainide F/u EP recs. Vitamin D deficiency 08/17/2013 018 Secondary hyperparathyroidism, non-renal 09/02/2005 01/07/2018 Abdominal pain, left upper quadrant 07/17/2016 Hyperparathyroidism, unspecified 12/22/2006 documented as of this encounter (statuses as of 10/28/2023) [facility]01[facility] History of Past illness Narrative* Problem Noted Date Diagnosed Date Resolved Date IRB 18444: [facility] Using [employer] Platform for Chronic Care of Patients with AF after Ablation Procedure- Randomized Study 12/02/2018 05/13/2019 Sciatica of right side 08/11/201701/07 A-fib 06/24/2017 07/06/2017 Lumbar compression fracture 04/15/2017 04/11/2022 Paronychia of finger 05/14/2016 017 Atrial fibrillation, persistent 09/04/2015 12/27/2018 Overview: S/p DCCV Oct 2016 and PV! Jun 23 2017. [id number] risk score: 3. On Flecainide and chronic AC with Rivaroxaban. Plan: Monitor in the CICU Will hold AC for now due to concern for oropharynx bleeding after PVI. Daily ECgs Continue Flecainide F/u EP recs. Vitamin D deficiency 08/17/2013 018 Secondary hyperparathyroidism, non-renal 09/02/2005 01/07/2018 Abdominal pain, left upper quadrant 07/17/2016 Hyperparathyroidism, unspecified 12/22/2006 documented as of this encounter (statuses as of 10/29/2023) [facility] History of Past illness Narrative* Problem Noted Date Diagnosed Date Resolved Date IRB 18-174: [facility] Using [employer] Platform for Chronic Care of Patients with AF after Ablation Procedure- Randomized Study 12/02/2018 05/13/2019 Sciatica of right side 08/11/201701/07 A-fib 06/24/2017 07/06/2017 Lumbar compression fracture 04/15/2017 04/11/2022 Paronychia of finger 05/14/2016 017 Atrial fibrillation, persistent 09/04/2015 12/27/2018 Overview: S/p DCCV Oct 2016 and PV! Jun 23 2017. [id number] risk score: 3. On Flecainide and chronic AC with Rivaroxaban. Plan: Monitor in the CICU Will hold AC for now due to concern for oropharynx bleeding after PVI. Daily ECgs Continue Flecainide F/u EP recs. Vitamin D deficiency 08/17/2013 018 Secondary hyperparathyroidism, non-renal 09/02/2005 01/07/2018 Abdominal pain, left upper quadrant 07/17/2016 Hyperparathyroidism, unspecified 12/22/2006 documented as of this encounter (statuses as of 02/06/2024) [facility] History of Past illness Narrative* Problem Noted Date Diagnosed Date Resolved Date IRB 18-444: [facility] Using [employer] Platform for Chronic Care of Patients with AF after Ablation Procedure- Randomized Study 12/02/2018 05/13/2019 Sciatica of right side 08/11/201701/07 A-fib 06/24/2017 07/06/2017 Lumbar compression fracture 04/15/2017 04/11/2022 Paronychia of finger 05/14/2016 017 Atrial fibrillation, persistent 09/04/2015 12/27/2018 Overview: S/p DCCV Oct 2016 and PV! Jun 23 2017. [id number] risk score: 3. On Flecainide and chronic AC with Rivaroxaban. Plan: Monitor in the CICU Will hold AC for now due to concern for oropharynx bleeding after PVI. Daily ECgs Continue Flecainide F/u EP recs. Vitamin D deficiency 08/17/2013 018 Secondary hyperparathyroidism, non-renal 09/02/2005 01/07/2018 Abdominal pain, left upper quadrant 07/17/2016 Hyperparathyroidism, unspecified 12/22/2006 documented as of this encounter (statuses as of 02/10/2024) [facility] History of Past illness Narrative* Problem Noted Date Diagnosed Date Resolved Date IRB 18-444: [facility] Using [employer] Platform for Chronic Care of Patients with AF after Ablation Procedure- Randomized Study 12/02/2018 05/13/2019 Sciatica of right side 08/11/201701/07 A-fib 06/24/2017 07/06/2017 Lumbar compression fracture 04/15/2017 04/11/2022 Paronychia of finger 05/14/2016 017 Atrial fibrillation, persistent 09/04/2015 12/27/2018 Overview: S/p DCCV Oct 2016 and PV! Jun 23 2017. [id number] risk score: 3. On Flecainide and chronic AC with Rivaroxaban. Plan: Monitor in the CICU Will hold AC for now due to concern for oropharynx bleeding after PVI. Daily ECgs Continue Flecainide F/u EP recs. Vitamin D deficiency 08/17/2013 018 Secondary hyperparathyroidism, non-renal 09/02/2005 01/07/2018 Abdominal pain, left upper quadrant 07/17/2016 Hyperparathyroidism, unspecified 12/22/2006 documented as of this encounter (statuses as of 02/12/2024) [facility] of Past illness Narrative* Problem Noted Date Diagnosed Date Resolved Date IRB 18444: [facility] Using [employer] Platform for Chronic Care of Patients with AF after Ablation Procedure- Randomized Study 12/02/2018 05/13/2019 Sciatica of right side 08/11/201701/07 A-fib 06/24/2017 07/06/2017 Lumbar compression fracture 04/15/2017 04/11/2022 Paronychia of finger 05/14/2016 017 Atrial fibrillation, persistent 09/04/2015 12/27/2018 Overview: S/p DCCV Oct 2016 and PV! Jun 23 2017. [id number] risk score: 3. On Flecainide and chronic AC with Rivaroxaban. Plan: Monitor in the CICU Will hold AC for now due to concern for oropharynx bleeding after PVI. Daily ECgs Continue Flecainide F/u EP recs. Vitamin D deficiency 08/17/2013 018 Secondary hyperparathyroidism, non-renal 09/02/2005 01/07/2018 Abdominal pain, left upper quadrant 07/17/2016 Hyperparathyroidism, unspecified 12/22/2006 documented as of this encounter (statuses as of 02/12/2024) [facility] of Past illness Narrative* Problem Noted Date Diagnosed Date Resolved Date IRB 18444: [facility] Using [employer] Platform for Chronic Care of Patients with AF after Ablation Procedure- Randomized Study 12/02/2018 05/13/2019 Sciatica of right side 08/11/201701/07 A-fib 06/24/2017 07/06/2017 Lumbar compression fracture 04/15/2017 04/11/2022 Paronychia of finger 05/14/2016 017 Atrial fibrillation, persistent 09/04/2015 12/27/2018 Overview: S/p DCCV Oct 2016 and PV! Jun 23 2017. [id number] risk score: 3. On Flecainide and chronic AC with Rivaroxaban. Plan: Monitor in the CICU Will hold AC for now due to concern for oropharynx bleeding after PVI. Daily ECgs Continue Flecainide F/u EP recs. Vitamin D deficiency 08/17/2013 018 Secondary hyperparathyroidism, non-renal 09/02/2005 01/07/2018 Abdominal pain, left upper quadrant 07/17/2016 Hyperparathyroidism, unspecified 12/22/2006 documented as of this encounter (statuses as of 02/26/2024) [facility] Amadou Carcamo [facility] December 12, 2023 11:20am Note Date/Time December 12, 2023 1 0:27am [facility] Medical Records Department [address] [place] [address] Emergency Department Summary 12/12/23 MR#: [id number] Acct: [id number] Name: KATELYNN CAMPUZANO Rep #:[id number] : [id number] 73 From: Amadou Carcamo MD PCP: Dr. Cholo Soriano MD Status:REG ER Location: ED HPI History of Present Illness Chief Complaint: Upper Extremity Injury Informant: patient and spouse/S.O. Onset/Context/Timing Onset: Hours (2) Narrative Narrative: Patient had just walked out with her dog on a leash, into the snow, the dog tookoff, wrapping the leash around her feet and causing her to fall. She states shefell partially on the sidewalk hitting her left hip, her left shoulder into the ground covered landscaping nearby, and bumped her head on a nearby brick wall asshe fell. This is on the left side. No loss of consciousness, no headache, no changes in vision no nausea or vomiting. No bleeding or lacerations. The main pain is at her left shoulder. She is able to stand and walk and states that herhip/buttock where she head is not hurting anymore. She still has no head injurysymptoms. She is on Xarelto because of history of atrial fibrillation. [facility] Medical History AVNRT (AV donna re-entry tachycardia) Body mass index (BMI) 35 or more Bradycardia COVID-19 Dyspnea on exertion Essential (primary) hypertension History of high risk medication treatment Hyperparathyroidism Hypothyroidism LVH (left ventricular hypertrophy) Mild pulmonary arterial systolic hypertension Obesity Obstructive sleep apnea Pain in left lower leg Palpitations Paroxysmal atrial fibrillation Tachycardia Thyroid nodule Home Medications levothyroxine 25 mcg tablet 25 mcg PO DAILY thyroid 07/27/16 [History Last Taken 01/25/19 06:00] cholecalciferol (vitamin D3) 50 mcg (2,000 unit) capsule 2,000 unit PO QDAY deficiency 02/02/18 [History Last Taken 01/25/19 08:00] acetaminophen 650 mg tablet,extended release (Tylenol 8 Hour) 650 mg PO QPM 01/15/21 [History Last Taken Unknown] hydrochlorothiazide 25 mg tablet 25 mg PO QDAY HTN #90 tabs 01/15/21 [Rx Last Taken Unknown] allopurinol 300 mg tablet 300 mg PO BID high uric acid 08/26/22 [History Last Taken Unknown] cyanocobalamin (vitamin B-12) 1,000 mcg capsule 1,000 mcg PO DAILY 08/26/22 [History Last Taken Unknown] Xarelto 20 mg tablet (rivaroxaban) 20 mg PO DAILY #90 tabs 01/19/23 [Rx Last Taken Unknown] lisinopril 5 mg tablet See Rx Instructions .Route .COMPLEX #90 tabs 02/16/23 [Rx Last Taken Unknown] metoprolol tartrate 25 mg tablet See Rx Instructions .Route .COMPLEX #90 tabs 02/16/23 [Rx Last Taken Unknown] flecainide 100 mg tablet See Rx Instructions .Route .COMPLEX #180 tabs 12/02/23 [Rx Last Taken Unknown] hydrocodone-acetaminophen 5-325mg 5mg-325mg 0.5 - 1 tab (0.5 - 1 x 5-325 mg) PO Q6H PRN PRN Pain 2 days #3 TABLETS 12/12/23 [Rx Last Taken Unknown] Allergy/AdvReac Type Severity Reaction Status Date / Time Penicillins Allergy Hives Verified 12/12/23 10:24 Sulfa (Sulfonamide Allergy Hives Verified 12/12/23 10:24 Antibiotics) Family History Father CVA (cerebral vascular accident) Atrial fibrillation Surgical History History of cardiac radiofrequency ablation (07/2018) History of cardioversion (01/28/19) History of hip replacement History of hysterectomy History of knee replacement History of left heart catheterization (11/20/08) History of right and left heart catheterization (02/04/21) S/P fine needle aspiration (07/2021) Social History Smoking Status: Never smoker alcohol intake: never substance use type: does not use caffeine: No ROS ROS ED Constitutional Constitutional ED: Denies chills or fever(s) Eyes Eyes: Denies change in vision or diplopia ENT ENT ED: Denies rhinorrhea or sore throat Cardiovascular Cardiovascular: Denies chest pain or palpitations Respiratory/Chest Respiratory/Chest: Denies cough or dyspnea Gastrointestinal Gastrointestinal: Denies abdominal pain, diarrhea, nausea or vomiting Genitourinary Genitourinary ED: Denies dysuria or hematuria Musculoskeletal Musculoskeletal: Reports as per HPI and extremity pain; Denies back pain, difficulty walking or neck pain Integumentary Denies abscess or rash Neurologic Neurologic: Denies headache(s), paresthesias or weakness Psychiatric Psychiatric: Denies anxiety or suicidal thoughts EXAM Physical Exam Const Vital Signs: 12/12/23 10:14 Temperature 96.7 F L Temperature Source Temporal Pulse Rate 57 L Respiratory Rate 16 Blood Pressure 149/66 H Blood Pressure Mean 93 Pulse Ox 98 Positive well nourished, well developed and obese General Appearance ED: well developed and NAD Nutritional Appearance: obese HEENT Reports moist mucous membranes HEENT Narrative: Minor tenderness, normal exam, left lateral parietal occipital scalp. No hematoma, contusion, laceration, crepitance, depression. No Harding sign. No periorbital ecchymosis. No CSF otorhinorrhea. normocephalic and atraumatic Eyes PERRL and EOMs intact bilaterally Neck full ROM and supple Resp normal respiratory effort and clear to auscultation bilaterally Cardio regular rate, regular rhythm and no murmurs GI non-tender and non-distended Auscultation: normoactive bowel sounds Palpation: soft Back/Spine General Back: other FROM Cervical Spine: Negative for cervical spine tenderness Thoracic Spine / Upper Back: Negative for thoracic spinal tenderness Lumbar Spine / Lower Back: Negative for lumbar spinal tenderness Extremity normal to inspection Extremity Narrative: Limited range of motion left shoulder, but able to move all other joints withoutany pain. Tenderness in the proximal humerus, no tenderness at the acromioclavicular joint or the acromion. No deformity. Able to abduct a little. With regards to the left hip she is able to stand and walk without any pain or symptoms. She has painless full range of motion. There is no tenderness at the greater trochanter, ASIS, ischial tuberosity, over the sacrum or spine. General Extremety ED: Yes tenderness; Negative for edema or pulses abnormal General Extremity: Negative for edema or pulses abnormal Neuro oriented x3, CN's II-XII intact bilaterally and no sensory deficits noted [place] Coma Scale: document GCS findings Spontaneous Obeys Commands Oriented 15 Sensorium / Orientation: awake and alert Motor Exam: strength 5/5 throughout Psych mental status grossly normal Skin no rashes or lesions noted and no wounds MDM MDM MDM Narrative Medical decision making narrative: This patient had very minor head trauma and no objective findings of injury. However she is 73 and anticoagulated, and therefore she does not meet criteria with any clinical rule for observation although it is late morning and I think she could probably observe herself, she was amenable to a head CT to verify she does not have any acute intracranial hemorrhage or extra-axial hemorrhage. I reviewed the images and the report which I agree with, it is negative for any acute intracranial injury. With regards to the left shoulder imagery, 4 views on my interpretation may show possible nondisplaced greater tuberosity fracture,radiology read it is negative. 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 She is amenable to that plan. Discharge Plan Triage Chief Complaint: Upper Extremity Injury ED Provider: Amadou Carcamo Dx/Rx/DC Orders Clinical Impression: Closed head injury without concussion, Anticoagulated, Fall, accidental, Injuryof left shoulder Instructions: Understanding a Humerus Fracture, ED Sling Prescriptions: New hydrocodone-acetaminophen [hydrocodone-acetaminophen] 5-325 mg tablet 0.5 - 1 tab PO Q6H PRN PRN (Reason: Pain) 2 Days Qty: 3 0RF No Action cholecalciferol (vitamin D3) 2,000 unit capsule 2,000 unit PO QDAY hydrochlorothiazide 25 mg tablet 25 mg PO QDAY Qty: 90 3RF acetaminophen [Tylenol 8 Hour] 650 mg tablet extended release 650 mg PO QPM cyanocobalamin (vitamin B-12) 1,000 mcg capsule 1,000 mcg PO DAILY levothyroxine 25 MCG tablet 25 mcg PO DAILY allopurinol 300 mg tablet 300 mg PO BID Xarelto 20 mg tablet 20 mg PO DAILY Qty: 90 3RF metoprolol tartrate 25 mg tablet See Rx Instructions .ROUTE .COMPLEX Qty: 90 4RF Dose Instruction: TAKE 1/2 TAB BY MOUTH TWICE DAILY Rx Instructions: TAKE 1/2 TAB BY MOUTH TWICE DAILY lisinopril 5 mg tablet See Rx Instructions .ROUTE .COMPLEX Qty: 90 4RF Dose Instruction: TAKE 1 TABLET BY MOUTH EVERYDAY Rx Instructions: TAKE 1 TABLET BY MOUTH EVERYDAY flecainide 100 mg tablet See Rx Instructions .ROUTE .COMPLEX Qty: 180 3RF Dose Instruction: TAKE 1 TABLET BY MOUTH EVERY 12 HOURS (DOSE INCREASE) Rx Instructions: TAKE 1 TABLET BY MOUTH EVERY 12 HOURS (DOSE INCREASE) Primary Care Provider: Cholo Soriano Referrals: Anoop Galan DO [Med Staff - Active Staff] - 1-2 Weeks Cholo Soriano MD [Primary Care Provider] - What to do if you have Problems For any increased pain, shortness of breath, bleeding, nausea or vomiting, chestpain, or any unexpected problems, contact your Primary Care Provider. Call [employer] [facility] ([phone]) or report to the closest Emergency Room. Call 911 if necessary. 12/12/23 1120 <Electronically signed by Amadou Carcamo MD> Cosigner Signature (if applicable): CC: Dr. Cholo Soriano MD ~ Signed [facility] Work Phone: Evaluation note* Diagnosis Trochanteric bursitis of right hip- Primary Enthesopathy of hip region [facility] Pain in right hip Pain in joint, pelvic region and thigh [facility] noteNo assessment information availableWWVUMedicine [facility] Work Phone: Evaluation note* Diagnosis Medicare annual wellness visit, subsequent- [...] healing, subsequent encounter [facility] Diagnosis 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 RUQ pain Abdominal pain, right upper quadrant [facility] Diagnosis 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 [facility] Diagnosis Lung nodules Other nonspecific abnormal finding of lung field [facility]* Diagnosis Multiple lung nodules on CT- Primary Obstructive sleep apnea syndrome Obstructive sleep apnea (adult) (pediatric) Obesity, Class II, BMI 35-39.9 Obesity, unspecified Pulmonary hypertension (HCC) Other chronic pulmonary heart diseases [facility]* Diagnosis Neuropathy- Primary Mononeuritis of unspecified site Foot pain, bilateral Pain in limb [facility] Diagnosis Bilateral foot pain Pain in limb [facility] Diagnosis Bruise- Primary Contusion of unspecified site [facility]* Diagnosis At increased risk of exposure to COVID-19 virus- Primary Acute cough [facility] Diagnosis Onset Date Resolution Status Thyroid nodule acute Essential (primary) hypertension chronic Paroxysmal atrial fibrillation chronic COVID-19 acute [facility] Work Phone: Evaluation note* Diagnosis Essential hypertension- Primary Unspecified essential [...] with depressed mood [facility] Diagnosis Left leg pain- Primary Pain in limb [facility] Diagnosis Trochanteric bursitis of left hip- Primary Enthesopathy of hip region Limping with cause localized to lower leg [facility]* Diagnosis Medicare annual wellness visit, subsequent- [...] serum vitamin B12 [facility]* Diagnosis Lung nodules- Primary Other nonspecific abnormal finding of lung field ROZ on CPAP Obstructive sleep apnea (adult) (pediatric) Pulmonary hypertension (HCC) Other chronic pulmonary heart diseases Morbid obesity (HCC) Morbid obesity [facility] Diagnosis Encounter for screening mammogram for malignant neoplasm of breast- Primary Other [facility] Diagnosis Encounter for screening mammogram for malignant neoplasm of breast Other screening mammogram [facility] Diagnosis Hand pain, right- Primary Pain in limb Closed nondisplaced fracture of phalanx of right little finger, unspecified phalanx, initial encounter documented [facility] Diagnosis Closed displaced fracture of phalanx of right little finger with routine healing, unspecified phalanx, subsequent encounter- Primary documented [facility]* Diagnosis Encounter for screening mammogram for malignant neoplasm of breast Other screening mammogram [facility] Diagnosis Encounter for gynecological examination without abnormal finding- Primary Routine gynecological examination Encounter for screening mammogram for breast cancer Osteopenia of left femoral neck [facility] Diagnosis Closed displaced fracture of phalanx of right little finger with routine healing, unspecified phalanx, subsequent encounter documented [facility]* Diagnosis Onset Date Resolution Status Essential (primary) hypertension chronic Paroxysmal atrial fibrillation [facility] Work Phone: Evaluation note* Diagnosis Cellulitis of skin- Primary Cellulitis and abscess of unspecified site documented [facility]* Diagnosis Wrist pain, right- Primary Pain in joint, forearm Closed nondisplaced fracture of scaphoid of right wrist, unspecified portion of scaphoid, initial encounter documented [facility]* Diagnosis Closed nondisplaced fracture of scaphoid of right wrist, unspecified portion of scaphoid, initial encounter- Primary [facility] Diagnosis Pain of cheek- Primary Headache Balance problems Other symptoms involving nervous and musculoskeletal systems Multiple falls Personal history of fall documented [facility] Diagnosis Pain of cheek Headache [facility] Diagnosis Balance problems- Primary Other symptoms involving nervous and musculoskeletal systems Multiple falls Personal history of fall documented [facility] Diagnosis Balance problems- Primary Other symptoms involving nervous and musculoskeletal systems Multiple falls Personal history of fall documented [facility] Diagnosis Balance problems- Primary Other symptoms involving nervous and musculoskeletal systems Multiple falls Personal history of fall documented [facility]* Diagnosis Glenohumeral arthritis, left- Primary Fall, initial encounter Pain in right wrist Pain in joint, forearm documented [facility]* Diagnosis Medicare annual wellness visit, subsequent- Primary Routine general medical examination at a [facility] care facility Essential hypertension Unspecified essential hypertension Hyperlipidemia, mixed Mixed hyperlipidemia Acquired hypothyroidism Unspecified hypothyroidism Thyroid nodule Nontoxic uninodular goiter GERD without esophagitis Esophageal reflux Hyperparathyroidism (HCC) Hyperparathyroidism, unspecified Paroxysmal atrial fibrillation (HCC) Atrial fibrillation Situational depression Adjustment disorder with depressed mood Hyperuricemia Other abnormal blood chemistry Pulmonary hypertension (HCC) Other chronic pulmonary heart diseases Low serum vitamin B12 Obesity, Class II, BMI 35-39.9 Obesity, unspecified Advance directive discussed with patient Other specified counseling Balance problems Other symptoms involving nervous and musculoskeletal systems Multiple falls Personal history of fall Encounter for immunization Need for other specified prophylactic vaccination against single bacterial disease Skin cancer screening Screening for malignant neoplasm of the skin documented [facility]* Diagnosis Lung nodules Other nonspecific abnormal finding of lung field [facility] Diagnosis Thyroid nodule- Primary Nontoxic uninodular goiter [facility] Diagnosis Lung nodules- Primary Other nonspecific abnormal finding of lung field Bronchospasm Acute bronchospasm Atelectasis Pulmonary collapse ROZ on CPAP Obstructive sleep apnea (adult) (pediatric) Pulmonary hypertension (HCC) Other chronic pulmonary heart diseases Morbid obesity (HCC) Morbid obesity [facility] Diagnosis Balance problems- Primary Other symptoms involving nervous and musculoskeletal systems Multiple falls Personal history of fall [facility] Diagnosis Chronic left shoulder pain- Primary Pain in joint, shoulder region [facility]* Diagnosis Wrist pain, right Pain in joint, forearm [facility] Diagnosis Hand pain, right Pain in limb [facility] Diagnosis Cellulitis of skin- Primary Cellulitis and abscess of unspecified site [facility]* Diagnosis Left hip pain Pain in joint, pelvic region and thigh [facility]* Diagnosis Rib pain on right side Chest pain, unspecified Fall, subsequent encounter [facility]* Diagnosis Balance problems Other symptoms involving nervous and musculoskeletal systems Multiple falls Personal history of fall [facility] Diagnosis Thyroid nodule Nontoxic uninodular goiter [facility] Diagnosis Thyroid nodule- Primary Nontoxic uninodular goiter documented in this encounter [facility] note* Diagnosis Pain in rib- Primary Chest pain, unspecified Pain in rib Chest pain, unspecified documented in this encounter [facility] note* Diagnosis Pain in rib Chest pain, unspecified documented in this encounter [facility] note* Diagnosis Acute cough- Primary Acute cough documented in this encounter [facility] note* Diagnosis Glenohumeral arthritis, left- Primary documented in this encounter [facility] note* Diagnosis Chronic left shoulder pain Pain in joint, shoulder region documented in this encounter [facility] note* Diagnosis Acute cough documented in this encounter [facility] note* Diagnosis Essential hypertension- Primary Unspecified essential hypertension Hyperlipidemia, mixed Mixed hyperlipidemia Hyperparathyroidism (HCC) Hyperparathyroidism, unspecified Acquired hypothyroidism Unspecified hypothyroidism Low serum vitamin B12 Situational depression Adjustment disorder with depressed mood Paroxysmal atrial fibrillation (HCC) Atrial fibrillation GERD without esophagitis Esophageal reflux Hyperuricemia Other abnormal blood chemistry documented in this encounter [facility] note* Diagnosis Sore throat- Primary Acute pharyngitis URI, acute Acute upper respiratory infections of unspecified site documented in this encounter [facility] note* Diagnosis Glenohumeral arthritis, left- Primary Acute pain of left shoulder Glenohumeral arthritis, left Acute pain of left shoulder documented in this encounter [facility] note* Diagnosis Laryngeal spasm- Primary Glenohumeral arthritis, left Acute pain of left shoulder documented in this encounter [facility] note* Diagnosis Encounter for screening mammogram for malignant neoplasm of breast- Primary Other screening mammogram Glenohumeral arthritis, left Acute pain of left shoulder documented in this encounter [facility] note* Diagnosis URI, acute- Primary Acute upper respiratory infections of unspecified site Exposure to influenza Contact with or exposure to other viral diseases documented in this encounter [facility] note* Diagnosis Glenohumeral arthritis, left- Primary documented in this encounter [facility] note* Diagnosis Encounter for screening mammogram for malignant neoplasm of breast Other screening mammogram documented in this encounter [facility] note* Diagnosis Osteopenia of left femoral neck documented in this encounter [facility] note* Diagnosis Glenohumeral arthritis, left- Primary Acute pain of left shoulder Glenohumeral arthritis, left Acute pain of left shoulder documented in this encounter [facility] note* Diagnosis Osteopenia, unspecified location- Primary Glenohumeral arthritis, left Acute pain of left shoulder documented in this encounter [facility] note* Diagnosis Acute Lyme disease with erythema migrans lesion 5 cm or greater in diameter- Primary Glenohumeral arthritis, left Acute pain of left shoulder documented in this encounter [facility] note* Diagnosis Pre-op evaluation- Primary Preoperative examination, unspecified Essential hypertension Unspecified essential hypertension Hyperlipidemia, mixed Mixed hyperlipidemia Obstructive sleep apnea syndrome Obstructive sleep apnea (adult) (pediatric) Multiple lung nodules on CT GERD without esophagitis Esophageal reflux Thyroid nodule Nontoxic uninodular goiter Acquired hypothyroidism Unspecified hypothyroidism Hyperparathyroidism (HCC) Hyperparathyroidism, unspecified Situational depression Adjustment disorder with depressed mood BMI 40.0-44.9, adult (HCC) Body Mass Index 40.0-44.9, adult S/P ablation of atrial fibrillation Other postprocedural status Pulmonary hypertension (HCC) Other chronic pulmonary heart diseases Abnormality of nasal airway Other abnormal clinical finding Paroxysmal atrial fibrillation (HCC) Atrial fibrillation Calcification of aortic valve Aortic valve disorders Ringworm Dermatophytosis of unspecified site Laryngospasms Laryngeal spasm Laryngospasms- Primary Laryngeal spasm Rib pain on right side Chest pain, unspecified documented in this encounter [facility] note* Diagnosis Pre-op evaluation- Primary Preoperative examination, unspecified Essential hypertension Unspecified essential hypertension Hyperlipidemia, mixed Mixed hyperlipidemia Obstructive sleep apnea syndrome Obstructive sleep apnea (adult) (pediatric) Multiple lung nodules on CT GERD without esophagitis Esophageal reflux Thyroid nodule Nontoxic uninodular goiter Acquired hypothyroidism Unspecified hypothyroidism Hyperparathyroidism (HCC) Hyperparathyroidism, unspecified Situational depression Adjustment disorder with depressed mood BMI 40.0-44.9, adult (HCC) Body Mass Index 40.0-44.9, adult S/P ablation of atrial fibrillation Other postprocedural status Pulmonary hypertension (HCC) Other chronic pulmonary heart diseases Abnormality of nasal airway Other abnormal clinical finding Paroxysmal atrial fibrillation (HCC) Atrial fibrillation Calcification of aortic valve Aortic valve disorders Ringworm Dermatophytosis of unspecified site Laryngospasms Laryngeal spasm Laryngospasms- Primary Laryngeal spasm Right flank pain- Primary Abdominal pain, unspecified site Lyme disease Tinea corporis Dermatophytosis of the body Pharyngoesophageal dysphagia Dysphagia, pharyngoesophageal phase Rib pain on right side Chest pain, unspecified Rib pain on right side Chest pain, unspecified documented in this [facility]* Diagnosis Pre-op evaluation- Primary Preoperative examination, unspecified Essential hypertension Unspecified essential hypertension Hyperlipidemia, mixed Mixed hyperlipidemia Obstructive sleep apnea syndrome Obstructive sleep apnea (adult) (pediatric) Multiple lung nodules on CT GERD without esophagitis Esophageal reflux Thyroid nodule Nontoxic uninodular goiter Acquired hypothyroidism Unspecified hypothyroidism Hyperparathyroidism (HCC) Hyperparathyroidism, unspecified Situational depression Adjustment disorder with depressed mood BMI 40.0-44.9, adult (HCC) Body Mass Index 40.0-44.9, adult S/P ablation of atrial fibrillation Other postprocedural status Pulmonary hypertension (HCC) Other chronic pulmonary heart diseases Abnormality of nasal airway Other abnormal clinical finding Paroxysmal atrial fibrillation (HCC) Atrial fibrillation Calcification of aortic valve Aortic valve disorders Ringworm Dermatophytosis of unspecified site Laryngospasms Laryngeal spasm Laryngospasms- Primary Laryngeal spasm Medicare annual wellness visit, subsequent- Primary Routine general medical examination at a health care facility Essential hypertension Unspecified essential hypertension Hyperlipidemia, mixed Mixed hyperlipidemia GERD without esophagitis Esophageal reflux Acquired hypothyroidism Unspecified hypothyroidism Thyroid nodule Nontoxic uninodular goiter Paroxysmal atrial fibrillation (HCC) Atrial fibrillation Hyperparathyroidism (HCC) Hyperparathyroidism, unspecified Pulmonary hypertension (HCC) Other chronic pulmonary heart diseases Situational depression Adjustment disorder with depressed mood BMI 40.0-44.9, adult (HCC) Body Mass Index 40.0-44.9, adult Low serum vitamin B12 Obstructive sleep apnea syndrome Obstructive sleep apnea (adult) (pediatric) Osteopenia, unspecified location Hypokalemia Hypopotassemia Advance directive discussed with patient Other specified counseling Encounter for screening examination for other mental health and behavioral disorders documented in this encounter [facility] note* Diagnosis Pre-op evaluation- Primary Preoperative examination, unspecified Essential hypertension Unspecified essential hypertension Hyperlipidemia, mixed Mixed hyperlipidemia Obstructive sleep apnea syndrome Obstructive sleep apnea (adult) (pediatric) Multiple lung nodules on CT GERD without esophagitis Esophageal reflux Thyroid nodule Nontoxic uninodular goiter Acquired hypothyroidism Unspecified hypothyroidism Hyperparathyroidism (HCC) Hyperparathyroidism, unspecified Situational depression Adjustment disorder with depressed mood BMI 40.0-44.9, adult (HCC) Body Mass Index 40.0-44.9, adult S/P ablation of atrial fibrillation Other postprocedural status Pulmonary hypertension (HCC) Other chronic pulmonary heart diseases Abnormality of nasal airway Other abnormal clinical finding Paroxysmal atrial fibrillation (HCC) Atrial fibrillation Calcification of aortic valve Aortic valve disorders Ringworm Dermatophytosis of unspecified site Laryngospasms Laryngeal spasm Laryngospasms- Primary Laryngeal spasm Esophageal dysphagia- Primary Dysphagia, pharyngoesophageal phase Abnormal upper gastrointestinal barium series Nonspecific (abnormal) findings on radiological and other examination of gastrointestinal tract Esophageal spasm Dyskinesia of esophagus Duodenitis Duodenitis without mention of hemorrhage documented [facility] this encounter [facility]* Diagnosis Pre-op evaluation- Primary Preoperative examination, unspecified Essential hypertension Unspecified essential hypertension Hyperlipidemia, mixed Mixed hyperlipidemia Obstructive sleep apnea syndrome Obstructive sleep apnea (adult) (pediatric) Multiple lung nodules on CT GERD without esophagitis Esophageal reflux Thyroid nodule Nontoxic uninodular goiter Acquired hypothyroidism Unspecified hypothyroidism Hyperparathyroidism (HCC) Hyperparathyroidism, unspecified Situational depression Adjustment disorder with depressed mood BMI 40.0-44.9, adult (HCC) Body Mass Index 40.0-44.9, adult S/P ablation of atrial fibrillation Other postprocedural status Pulmonary hypertension (HCC) Other chronic pulmonary heart diseases Abnormality of nasal airway Other abnormal clinical finding Paroxysmal atrial fibrillation (HCC) Atrial fibrillation Calcification of aortic valve Aortic valve disorders Ringworm Dermatophytosis of unspecified site Laryngospasms Laryngeal spasm Laryngospasms- Primary Laryngeal spasm RUQ pain- Primary Abdominal pain, right upper quadrant Esophageal dysphagia Dysphagia, pharyngoesophageal phase Abnormal upper gastrointestinal barium series Nonspecific (abnormal) findings on radiological and other examination of gastrointestinal tract Esophageal spasm Dyskinesia of esophagus Duodenitis Duodenitis without mention of hemorrhage [facility] Diagnosis Pre-op evaluation- Primary Preoperative examination, unspecified Essential hypertension Unspecified essential hypertension Hyperlipidemia, mixed Mixed hyperlipidemia Obstructive sleep apnea syndrome Obstructive sleep apnea (adult) (pediatric) Multiple lung nodules on CT GERD without esophagitis Esophageal reflux Thyroid nodule Nontoxic uninodular goiter Acquired hypothyroidism Unspecified hypothyroidism Hyperparathyroidism (HCC) Hyperparathyroidism, unspecified Situational depression Adjustment disorder with depressed mood BMI 40.0-44.9, adult (HCC) Body Mass Index 40.0-44.9, adult S/P ablation of atrial fibrillation Other postprocedural status Pulmonary hypertension (HCC) Other chronic pulmonary heart diseases Abnormality of nasal airway Other abnormal clinical finding Paroxysmal atrial fibrillation (HCC) Atrial fibrillation Calcification of aortic valve Aortic valve disorders Ringworm Dermatophytosis of unspecified site Laryngospasms Laryngeal spasm Laryngospasms- Primary Laryngeal spasm RUQ pain Abdominal pain, right upper quadrant [facility] Diagnosis Pre-op evaluation- Primary Preoperative examination, unspecified Essential hypertension Unspecified essential hypertension Hyperlipidemia, mixed Mixed hyperlipidemia Obstructive sleep apnea syndrome Obstructive sleep apnea (adult) (pediatric) Multiple lung nodules on CT GERD without esophagitis Esophageal reflux Thyroid nodule Nontoxic uninodular goiter Acquired hypothyroidism Unspecified hypothyroidism Hyperparathyroidism (HCC) Hyperparathyroidism, unspecified Situational depression Adjustment disorder with depressed mood BMI 40.0-44.9, adult (HCC) Body Mass Index 40.0-44.9, adult S/P ablation of atrial fibrillation Other postprocedural status Pulmonary hypertension (HCC) Other chronic pulmonary heart diseases Abnormality of nasal airway Other abnormal clinical finding Paroxysmal atrial fibrillation (HCC) Atrial fibrillation Calcification of aortic valve Aortic valve disorders Ringworm Dermatophytosis of unspecified site Laryngospasms Laryngeal spasm Laryngospasms- Primary Laryngeal spasm Pain- Primary Generalized pain Contusion of rib on right side, initial encounter Contusion of left knee, initial encounter Pain Generalized pain documented in this encounter [facility]* Diagnosis Pre-op evaluation- Primary Preoperative examination, unspecified Essential hypertension Unspecified essential hypertension Hyperlipidemia, mixed Mixed hyperlipidemia Obstructive sleep apnea syndrome Obstructive sleep apnea (adult) (pediatric) Multiple lung nodules on CT GERD without esophagitis Esophageal reflux Thyroid nodule Nontoxic uninodular goiter Acquired hypothyroidism Unspecified hypothyroidism Hyperparathyroidism (HCC) Hyperparathyroidism, unspecified Situational depression Adjustment disorder with depressed mood BMI 40.0-44.9, adult (HCC) Body Mass Index 40.0-44.9, adult S/P ablation of atrial fibrillation Other postprocedural status Pulmonary hypertension (HCC) Other chronic pulmonary heart diseases Abnormality of nasal airway Other abnormal clinical finding Paroxysmal atrial fibrillation (HCC) Atrial fibrillation Calcification of aortic valve Aortic valve disorders Ringworm Dermatophytosis of unspecified site Laryngospasms Laryngeal spasm Laryngospasms- Primary Laryngeal spasm Pain Generalized pain documented in this [facility]* Diagnosis Pre-op evaluation- Primary Preoperative examination, unspecified Essential hypertension Unspecified essential hypertension Hyperlipidemia, mixed Mixed hyperlipidemia Obstructive sleep apnea syndrome Obstructive sleep apnea (adult) (pediatric) Multiple lung nodules on CT GERD without esophagitis Esophageal reflux Thyroid nodule Nontoxic uninodular goiter Acquired hypothyroidism Unspecified hypothyroidism Hyperparathyroidism (HCC) Hyperparathyroidism, unspecified Situational depression Adjustment disorder with depressed mood BMI 40.0-44.9, adult (HCC) Body Mass Index 40.0-44.9, adult S/P ablation of atrial fibrillation Other postprocedural status Pulmonary hypertension (HCC) Other chronic pulmonary heart diseases Abnormality of nasal airway Other abnormal clinical finding Paroxysmal atrial fibrillation (HCC) Atrial fibrillation Calcification of aortic valve Aortic valve disorders Ringworm Dermatophytosis of unspecified site Laryngospasms Laryngeal spasm Laryngospasms- Primary Laryngeal spasm Fall, initial encounter- Primary Acute pain of left knee Acute pain of left knee Fall, initial encounter documented in this encounter [facility] note* Diagnosis Pre-op evaluation- Primary Preoperative examination, unspecified Essential hypertension Unspecified essential hypertension Hyperlipidemia, mixed Mixed hyperlipidemia Obstructive sleep apnea syndrome Obstructive sleep apnea (adult) (pediatric) Multiple lung nodules on CT GERD without esophagitis Esophageal reflux Thyroid nodule Nontoxic uninodular goiter Acquired hypothyroidism Unspecified hypothyroidism Hyperparathyroidism (HCC) Hyperparathyroidism, unspecified Situational depression Adjustment disorder with depressed mood BMI 40.0-44.9, adult (HCC) Body Mass Index 40.0-44.9, adult S/P ablation of atrial fibrillation Other postprocedural status Pulmonary hypertension (HCC) Other chronic pulmonary heart diseases Abnormality of nasal airway Other abnormal clinical finding Paroxysmal atrial fibrillation (HCC) Atrial fibrillation Calcification of aortic valve Aortic valve disorders Ringworm Dermatophytosis of unspecified site Laryngospasms Laryngeal spasm Laryngospasms- Primary Laryngeal spasm Acute pain of left knee Fall, initial encounter documented in this encounter [facility] note* Diagnosis Pre-op evaluation- Primary Preoperative examination, unspecified Essential hypertension Unspecified essential hypertension Hyperlipidemia, mixed Mixed hyperlipidemia Obstructive sleep apnea syndrome Obstructive sleep apnea (adult) (pediatric) Multiple lung nodules on CT GERD without esophagitis Esophageal reflux Thyroid nodule Nontoxic uninodular goiter Acquired hypothyroidism Unspecified hypothyroidism Hyperparathyroidism (HCC) Hyperparathyroidism, unspecified Situational depression Adjustment disorder with depressed mood BMI 40.0-44.9, adult (HCC) Body Mass Index 40.0-44.9, adult S/P ablation of atrial fibrillation Other postprocedural status Pulmonary hypertension (HCC) Other chronic pulmonary heart diseases Abnormality of nasal airway Other abnormal clinical finding Paroxysmal atrial fibrillation (HCC) Atrial fibrillation Calcification of aortic valve Aortic valve disorders Ringworm Dermatophytosis of unspecified site Laryngospasms Laryngeal spasm Laryngospasms- Primary Laryngeal spasm Acquired hypothyroidism- Primary Unspecified hypothyroidism Esophageal dysphagia Dysphagia, pharyngoesophageal phase Abnormal upper gastrointestinal barium series Nonspecific (abnormal) findings on radiological and other examination of gastrointestinal tract Esophageal spasm Dyskinesia of esophagus Duodenitis Duodenitis without mention of hemorrhage RUQ pain Abdominal pain, right upper quadrant Acquired hypothyroidism Unspecified hypothyroidism Essential hypertension Unspecified essential hypertension GERD without esophagitis Esophageal reflux Hyperlipidemia, mixed Mixed hyperlipidemia Obstructive sleep apnea syndrome Obstructive sleep apnea (adult) (pediatric) Paroxysmal atrial fibrillation (HCC) Atrial fibrillation Pulmonary hypertension (HCC) Other chronic pulmonary heart diseases S/P ablation of atrial fibrillation Other postprocedural status BMI 40.0-44.9, adult (HCC) Body Mass Index 40.0-44.9, adult Pre-op examination Preoperative examination, unspecified Presbyesophagus Other specified disorder of the esophagus Esophagitis Esophagitis, unspecified Gastric polyp Benign neoplasm of stomach Intestinal lymphangiectasia Other specified disorder of intestines Essential hypertension Unspecified essential hypertension GERD without esophagitis Esophageal reflux Hyperlipidemia, mixed Mixed hyperlipidemia Obstructive sleep apnea syndrome Obstructive sleep apnea (adult) (pediatric) Paroxysmal atrial fibrillation (HCC) Atrial fibrillation Pulmonary hypertension (HCC) Other chronic pulmonary heart diseases S/P ablation of atrial fibrillation Other postprocedural status BMI 40.0-44.9, adult (HCC) Body Mass Index 40.0-44.9, adult Pre-op examination Preoperative examination, unspecified Esophagitis- Primary Esophagitis, unspecified [facility] Diagnosis Pre-op evaluation- Primary Preoperative examination, unspecified Essential hypertension Unspecified essential hypertension Hyperlipidemia, mixed Mixed hyperlipidemia Obstructive sleep apnea syndrome Obstructive sleep apnea (adult) (pediatric) Multiple lung nodules on CT GERD without esophagitis Esophageal reflux Thyroid nodule Nontoxic uninodular goiter Acquired hypothyroidism Unspecified hypothyroidism Hyperparathyroidism (HCC) Hyperparathyroidism, unspecified Situational depression Adjustment disorder with depressed mood BMI 40.0-44.9, adult (HCC) Body Mass Index 40.0-44.9, adult S/P ablation of atrial fibrillation Other postprocedural status Pulmonary hypertension (HCC) Other chronic pulmonary heart diseases Abnormality of nasal airway Other abnormal clinical finding Paroxysmal atrial fibrillation (HCC) Atrial fibrillation Calcification of aortic valve Aortic valve disorders Ringworm Dermatophytosis of unspecified site Laryngospasms Laryngeal spasm Laryngospasms- Primary Laryngeal spasm Acquired hypothyroidism- Primary Unspecified hypothyroidism Esophageal dysphagia Dysphagia, pharyngoesophageal phase Abnormal upper gastrointestinal barium series Nonspecific (abnormal) findings on radiological and other examination of gastrointestinal tract Esophageal spasm Dyskinesia of esophagus Duodenitis Duodenitis without mention of hemorrhage RUQ pain Abdominal pain, right upper quadrant Acquired hypothyroidism Unspecified hypothyroidism Essential hypertension Unspecified essential hypertension GERD without esophagitis Esophageal reflux Hyperlipidemia, mixed Mixed hyperlipidemia Obstructive sleep apnea syndrome Obstructive sleep apnea (adult) (pediatric) Paroxysmal atrial fibrillation (HCC) Atrial fibrillation Pulmonary hypertension (HCC) Other chronic pulmonary heart diseases S/P ablation of atrial fibrillation Other postprocedural status BMI 40.0-44.9, adult (HCC) Body Mass Index 40.0-44.9, adult Pre-op examination Preoperative examination, unspecified Presbyesophagus Other specified disorder of the esophagus Esophagitis Esophagitis, unspecified Gastric polyp Benign neoplasm of stomach Intestinal lymphangiectasia Other specified disorder of intestines Essential hypertension Unspecified essential hypertension GERD without esophagitis Esophageal reflux Hyperlipidemia, mixed Mixed hyperlipidemia Obstructive sleep apnea syndrome Obstructive sleep apnea (adult) (pediatric) Paroxysmal atrial fibrillation (HCC) Atrial fibrillation Pulmonary hypertension (HCC) Other chronic pulmonary heart diseases S/P ablation of atrial fibrillation Other postprocedural status BMI 40.0-44.9, adult (HCC) Body Mass Index 40.0-44.9, adult Pre-op examination Preoperative examination, unspecified * Assessment & Plan Note - Ivelisse Matos APRN.CNP - 07/26/2025 10:16 AM EDT Associated Problem(s): Pre-op examination Medical conditions which may affect the perioperative course were address in today's visit. * Assessment & Plan Note - Ivelisse Matos APRN.CNP - 07/26/2025 9:35 AM EDT Associated Problem(s): BMI 40.0-44.9, adult ([facility]) BMI 39 * Assessment & Plan Note - Ivelisse Matos APRN.CNP - 07/26/2025 9:34 AM EDT Associated Problem(s): S/P ablation of atrial fibrillation Reports s/p ablation 2017 Managed by Cardiology * Assessment & Plan Note - Ivelisse Matos APRN.CNP - 07/26/2025 9:34 AM EDT Associated Problem(s): Pulmonary hypertension (HCC) Managed by Cardiology and Pulmonology - RSVP 35 mmHg on ECHO from 2018. - Repeat ECHO 11/15 shows Pulmonary Artery Systolic Pressure of 39mmg. EF 60% * Assessment & Plan Note - Ivelisse Matos APRN.CNP - 07/26/2025 9:32 AM EDT Associated Problem(s): Paroxysmal atrial fibrillation (HCC) Managed by cardiology On Xarelto * Assessment & Plan Note - Ivelisse Matos APRN.CNP - 07/26/2025 9:32 AM EDT Associated Problem(s): Obstructive sleep apnea syndrome Uses CPAP * Assessment & Plan Note - Ivelisse Matos APRN.CNP - 07/26/2025 9:31 AM EDT Associated Problem(s): Hyperlipidemia, mixed Patient not currently on any medications. Patient is diet-controlled * Assessment & Plan Note - Ivelisse Matos APRN.CNP - 07/26/2025 9:31 AM EDT Associated Problem(s): GERD without esophagitis EGD today * Assessment & Plan Note - Ivelisse Matos APRN.CNP - 07/26/2025 9:31 AM EDT Associated Problem(s): Essential hypertension Controlled on HCTZ, lisinopril, metoprolol Last 14 BP Last 14 Encounter BP Readings: Date: BP: 06/22/2025 110/72 06/17/2025 113/75 06/01/2025 114/76 05/15/2025 110/70 04/28/2025 104/64 04/12/2025 94/68 04/06/2025 135/62 01/20/2025 124/70 12/23/2024 119/73 11/15/2024 135/78 11/07/2024 122/80 09/09/2024 158/84 08/29/2024 138/70 08/11/2024 131/74 * Assessment & Plan Note - Ivelisse Matos APRN.CNP - 07/26/2025 9:30 AM EDT Associated Problem(s): Esophageal spasm EGD TODAY * Assessment & Plan Note - Ivelisse Matos APRN.CNP - 07/26/2025 9:30 AM EDT Associated Problem(s): Esophageal dysphagia EGD TODAY * Assessment & Plan Note - Ivelisse Matos APRN.CNP - 07/26/2025 9:30 AM EDT Associated Problem(s): Duodenitis EGD TODAY * Assessment & Plan Note - Ivelisse Matos APRN.CNP - 07/26/2025 9:29 AM EDT Associated Problem(s): Acquired hypothyroidism On levothyroxine - stable Component Ref Range & Units 3 mo ago (04/12/25) 9 mo ago (10/24/24) 1 yr ago (04/26/24) 1 yr ago (10/13/23) 2 yr ago (04/14/23) 2 yr ago (09/29/22) 3 yr ago (03/24/22) TSH 0.270 - 4.200 mIU/L 2.210 3.220 2.500 2.560 2.110 1.600 2.360 * Assessment & Plan Note - Ivelisse Matos APRN.CNP - 07/26/2025 9:29 AM EDT Associated Problem(s): Abnormal upper gastrointestinal barium series EGD today * Assessment & Plan Note - Ivelisse Matos APRN.CNP - 07/26/2025 9:28 AM EDT Associated Problem(s): RUQ pain EGD today documented in this encounter [facility] for referral (narrative)* Diagnostic Procedure Only (Routine) - Closed Specialty Diagnoses / Procedures Referred By Syeda t Referred To Contact XR IMAGING Diagnoses Pain in right hip Procedures XR PELVIS 1V AP RADIOLOGIC EXAMINATION PELVIS 1/2 VIEWS Aiden Lees APRN.CNP [address] [place] [address] Xr Imaging Referral ID Status Reason Start Date Expiration Date V isits Requested Visits Authorized [id number] Closed Auto-Generate d Referral 02/11/2022 03/09/2023 1 1 [facility] for referral (narrative)* Diagnostic Procedure Only (Routine) - Closed Specialty Diagnoses / Procedures Referred By Contac t Referred To Contact US IMAGING Diagnoses Bilateral renal cysts RUQ pain Procedures US KIDNEY/BLADDER US RETROPERITONEAL REAL TIME W/IMAGE COMPLETE Cholo Soriano MD [address] [place] [address] Us Imaging Referral ID Status Reason Start Date Expiration Date V isits Requested Visits Authorized [id number] Closed Auto-Generate d Referral 04/11/2022 05/11/2023 1 1 [facility] for referral (narrative)* Diagnostic Procedure Only (Routine) - Closed Specialty Diagnoses / Procedures Referred By Contac t Referred To Contact XR IMAGING Diagnoses Bilateral foot pain Procedures XR FOOT GENERAL 3V AP/LAT/OBL BILATERAL RADEX FOOT COMPLETE MINIMUM 3 VIEWS Ladi Briscoe [address] [place] [address] Xr Imaging Referral ID Status Reason Start Date Expiration Date V isits Requested Visits Authorized [id number] Closed Auto-Generate d Referral 05/15/2022 06/14/2023 1 1 [facility] for referral (narrative)* Outpatient Procedure (Routine) - Authorized Specialty Diagnoses / Procedures Referred By Contac t Referred To [facility] Diagnoses Left leg pain Procedures US LEG VEIN DVT UNL VAS LAB DUP-SCAN XTR VEINS UNILATERAL/LIMITED STUDY Magda Simon MD [address] [place] [address] [facility] [address] [place] [address] Referral ID Status Reason Start Date Expiration Date Visits Requested Visits Authorized [id number] Authorized Auto-Generat ed Referral 2 10/20/2023 1 1 [facility] for referral (narrative)* Diagnostic Procedure Only (Routine) - Authorized Specialty Diagnoses / Procedures Referred By Syeda t Referred To Contact BR IMAGING Diagnoses Encounter for screening mammogram for malignant neoplasm of breast Procedures BEBETO SCREENING W KAI SCREENING DIGITAL BREAST TOMOSYNTHESIS BI SCREENING MAMMOGRAPHY BI 2-VIEW BREAST INC CAD Magda Simon MD [address] [place] [address] [facility] [address] [place] [address] Referral ID Status Reason Start Date Expiration Date Visits Requested Visits Authorized [id number] Authorized Auto-Generat ed Referral 10/08/2024 1 1 [facility] for referral (narrative)* Diagnostic Procedure Only (Routine) - Closed Specialty Diagnoses / Procedures Referred By Syeda paiz Referred To Contact BR IMAGING Diagnoses Encounter for screening mammogram for malignant neoplasm of breast Procedures BEBETO SCREENING W KAI SCREENING BREAST DGTL KAI UNI/BILAT ADD ON SCREENING MAMMOGRAPHY BI 2-VIEW BREAST INC CAD Magda Simon MD [address] [place] [address] [facility] [address] [place] [address] Referral ID Status Reason Start Date Expiration Date V isits Requested Visits Authorized [id number] Closed Auto-Generate d Referral 10/10/2021 11/09/2022 1 1 [facility] for referral (narrative)* Diagnostic Procedure Only (Urgent) - Closed Specialty Diagnoses / Procedures Referred By Syeda paiz Referred To Contact XR IMAGING Diagnoses Hand pain, right Procedures XR HAND GENERAL 3V PA/LAT/OBL RIGHT RADEX HAND MINIMUM 3 VIEWS Alta Moser, 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 [address] [place] [address] [place] [address] Referral ID Status Reason Start Date Expiration Date V isits Requested Visits Authorized [id number] Closed Auto-Generate d Referral 10/08/2023 11/06/2024 1 1 [facility] for referral (narrative)* Diagnostic Procedure Only (Routine) - Pending Review Specialty Diagnoses / Procedures Referred By Contac t Referred To Contact XR IMAGING Diagnoses Osteopenia of left femoral neck Procedures BMD BODY COMPOSITION STUDY UNLISTED DIAGNOSTIC RADIOGRAPHIC PROCEDURE Magda Simon MD [address] [place] [address] [place] [address] Referral ID Status Reason Start Date Expiration Date Visits Requested Visits Authorized [id number] Pending Review Auto-Generat ed Referral 3 11/11/2024 1 1 * Diagnostic Procedure Only (Routine) - Authorized Specialty Diagnoses / Procedures Referred By Contac t Referred To Contact BR IMAGING Diagnoses Encounter for screening mammogram for breast cancer Procedures BEBETO SCREENING W KAI SCREENING DIGITAL BREAST TOMOSYNTHESIS BI SCREENING MAMMOGRAPHY BI 2-VIEW BREAST INC CAD Magda Simon MD [address] [place] [address] Br Imaging [address] [place] [address] Referral ID Status Reason Start Date Expiration Date Visits Requested Visits Authorized [id number] Authorized Auto-Generat ed Referral 3 11/11/2024 1 1 [facility] for referral (narrative)* Diagnostic Procedure Only (Routine) - New Request Specialty Diagnoses / Procedures Referred By Contac t Referred To Contact US IMAGING Diagnoses Thyroid nodule Procedures US THYROID/PARATHYROID US SOFT TISSUE HEAD & NECK REAL TIME IMGE Cholo Estrella MD [address] [place] [address] [place] [address] Referral ID Status Reason Start Date Expiration Date Visits Requested Visits Authorized [id number] New Request Auto-Generat ed Referral 08/01/2024 07/08/2025 1 1 [facility] for referral (narrative)* Diagnostic Procedure Only (Routine) - New Request Specialty Diagnoses / Procedures Referred By Contac t Referred To Contact XR IMAGING Diagnoses Chronic left shoulder pain Procedures XR SHOULDER GENERAL 3V OR MORE AP/TRUE AP/OTHER LEFT RADEX SHOULDER COMPLETE MINIMUM 2 VIEWS Kerline Granda PA-C [address] [place] [address] Xr Imaging [id number] Referral ID Status Reason Start Date Expiration Date Visits Requested Visits Authorized [id number] New Request Auto-Generat ed Referral 07/26/2024 08/25/2025 1 1 [facility] for referral (narrative)* Diagnostic Procedure Only (Urgent) - Closed Specialty Diagnoses / Procedures Referred By Contac t Referred To Contact XR IMAGING Diagnoses Wrist pain, right Procedures XR WRIST GENERAL 3V PA/LAT/OBL RIGHT RADEX WRIST COMPLETE MINIMUM 3 VIEWS Guido Aguilar MD [address] [place] [address] Xr Imaging [id number] Referral ID Status Reason Start Date Expiration Date V isits Requested Visits Authorized [id number] Closed Auto-Generate d Referral 02/06/2024 03/07/2025 1 1 [facility] for referral (narrative)* Diagnostic Procedure Only (Urgent) - Closed Specialty Diagnoses / Procedures Referred By Contac t Referred To Contact XR IMAGING Diagnoses Hand pain, right Procedures XR HAND GENERAL 3V PA/LAT/OBL RIGHT RADEX HAND MINIMUM 3 VIEWS Alta Moser APRN.CNP [address] [place] [address] [place] [address] Referral ID Status Reason Start Date Expiration Date V isits Requested Visits Authorized [id number] Closed Auto-Generate d Referral 10/08/2023 11/06/2024 1 1 [facility] for referral (narrative)* Diagnostic Procedure Only (Routine) - Closed Specialty Diagnoses / Procedures Referred By Contac t Referred To Contact XR IMAGING Diagnoses Left hip pain Procedures XR HIP GENERAL 3V PELV/AP/LAT LEFT RADEX HIP UNILATERAL WITH PELVIS 2-3 VIEWS Cholo Soriano MD [address] [place] [address] [place] [address] Referral ID Status Reason Start Date Expiration Date V isits Requested Visits Authorized [id number] Closed Auto-Generate d Referral 11/05/2022 12/05/2023 1 1 [facility] for referral (narrative)* Diagnostic Procedure Only (Routine) - Closed Specialty Diagnoses / Procedures Referred By Contac t Referred To Contact XR IMAGING Diagnoses Rib pain on right side Fall, subsequent encounter Procedures XR RIBS/CHEST 3V AP RIB/OBLS/CXR RIGHT RADEX RIBS UNI W/POSTEROANT CH MINIMUM 3 VIEWS Cholo Soriano MD [address] [place] [address] [place] [address] Referral ID Status Reason Start Date Expiration Date V isits Requested Visits Authorized [id number] Closed Auto-Generate d Referral 2022 04/10/2023 1 1 [facility] for referral (narrative)* Diagnostic Procedure Only (Urgent) - Closed Specialty Diagnoses / Procedures Referred By Contac t Referred To Contact XR IMAGING Diagnoses Pain in rib Procedures XR RIBS/CHEST 3V AP RIB/OBLS/CXR RIGHT RADEX RIBS UNI W/POSTEROANT CH MINIMUM 3 VIEWS Nancy Swenson APRN.CNP [address] [place] [address] [place] [address] Referral ID Status Reason Start Date Expiration Date V isits Requested Visits Authorized [id number] Closed Auto-Generate d Referral 08/29/2024 09/28/2025 1 1 [facility] for referral (narrative)* Diagnostic Procedure Only (Urgent) - Closed Specialty Diagnoses / Procedures Referred By Syeda paiz Referred To Contact XR IMAGING Diagnoses Pain in rib Procedures XR RIBS/CHEST 3V AP RIB/OBLS/CXR RIGHT RADEX RIBS UNI W/POSTEROANT CH MINIMUM 3 VIEWS Nancy Swenson APRN.CNP [address] [place] [address] [place] [address] Referral ID Status Reason Start Date Expiration Date V isits Requested Visits Authorized [id number] Closed Auto-Generate d Referral 08/29/2024 09/28/2025 1 1 [facility] for referral (narrative)* Diagnostic Procedure Only (Routine) - Authorized Specialty Diagnoses / Procedures Referred By Syeda paiz Referred To Contact BR IMAGING Diagnoses Encounter for screening mammogram for malignant neoplasm of breast Procedures BEBETO SCREENING W KAI SCREENING DIGITAL BREAST TOMOSYNTHESIS BI SCREENING MAMMOGRAPHY BI 2-VIEW BREAST INC CAD Magda Simon MD [facility] [place] [address] Br Imaging [address] [place] [address] Referral ID Status Reason Start Date Expiration Date Visits Requested Visits Authorized [id number] Authorized Auto-Generat ed Referral 11/28/2024 12/28/2025 1 1 [facility] for referral (narrative)No reason for referral information availableWWVUMedicine [facility] Work Phone: Reason for visit Narrative* Diagnostic Procedure Only (Routine) - Closed Specialty Diagnoses / Procedures Referred By Contac t Referred To Contact XR IMAGING Diagnoses Pain in right hip Procedures XR PELVIS 1V AP RADIOLOGIC EXAMINATION PELVIS 1/2 VIEWS Aiden Lees APRN.DEBURRER MACHINE [address] [facility], [address] [place] [address] Xr Imaging Referral ID Status Reason Start Date Expiration Date V isits Requested Visits Authorized [id number] Closed Auto-Generate d Referral 02/11/2022 03/09/2023 1 1 [facility] for visit Narrative* Diagnostic Procedure Only (Routine) - Closed Specialty Diagnoses / Procedures Referred By Contac t Referred To Contact US IMAGING Diagnoses Bilateral renal cysts RUQ pain Procedures US KIDNEY/BLADDER US RETROPERITONEAL REAL TIME W/IMAGE COMPLETE Cholo Soriano MD [address] [place] [address] Us Imaging Referral ID Status Reason Start Date Expiration Date V isits Requested Visits Authorized [id number] Closed Auto-Generate d Referral 04/11/2022 05/11/2023 1 1 [facility] for visit Narrative* Diagnostic Procedure Only (Routine) - Closed Specialty Diagnoses / Procedures Referred By Contac t Referred To Contact XR IMAGING Diagnoses Bilateral foot pain Procedures XR FOOT GENERAL 3V AP/LAT/OBL BILATERAL RADEX FOOT COMPLETE MINIMUM 3 VIEWS Ladi Briscoe [address] [place] [address] Xr Imaging Referral ID Status Reason Start Date Expiration Date V isits Requested Visits Authorized [id number] Closed Auto-Generate d Referral 05/15/2022 06/14/2023 1 1 [facility] for visit Narrative* Diagnostic Procedure Only (Routine) - Closed Specialty Diagnoses / Procedures Referred By Contac t Referred To Contact BR IMAGING Diagnoses Encounter for screening mammogram for malignant neoplasm of breast Procedures BEBETO SCREENING W KAI SCREENING BREAST DGTL KAI UNI/BILAT ADD ON SCREENING MAMMOGRAPHY BI 2-VIEW BREAST INC CAD Magda Simon MD [address] [place] [address] Br Imaging [address] [place] [address] Referral ID Status Reason Start Date Expiration Date V isits Requested Visits Authorized [id number] Closed Auto-Generate d Referral 10/10/2021 11/09/2022 1 1 [facility] for visit Narrative* Diagnostic Procedure Only (Routine) - Closed Specialty Diagnoses / Procedures Referred By Contac t Referred To Contact BR IMAGING Diagnoses Encounter for screening mammogram for malignant neoplasm of breast Procedures BEBETO SCREENING W KAI SCREENING DIGITAL BREAST TOMOSYNTHESIS BI SCREENING MAMMOGRAPHY BI 2-VIEW BREAST INC CAD Magda Simon MD [address] [place] [address] Br Imaging [address] [place] [address] Referral ID Status Reason Start Date Expiration Date V isits Requested Visits Authorized [id number] Closed Auto-Generate d Referral 09/09/2023 10/08/2024 1 1 [facility] for visit Narrative* Diagnostic Procedure Only (Routine) - Closed Specialty Diagnoses / Procedures Referred By Contac t Referred To Contact XR IMAGING Diagnoses Closed displaced fracture of phalanx of right little finger with routine healing, unspecified phalanx, subsequent encounter Procedures XR HAND GENERAL 3V PA/LAT/OBL RIGHT RADEX HAND MINIMUM 3 VIEWS Aryan Torres V, DO [address] [place] [address] [place] [address] Referral ID Status Reason Start Date Expiration Date V isits Requested Visits Authorized [id number] Closed Auto-Generate d Referral 10/26/2023 11/24/2024 1 1 [facility] for visit Narrative* Diagnostic Procedure Only (Urgent) - Closed Specialty Diagnoses / Procedures Referred By Contac t Referred To Contact XR IMAGING Diagnoses Wrist pain, right Procedures XR WRIST GENERAL 3V PA/LAT/OBL RIGHT RADEX WRIST COMPLETE MINIMUM 3 VIEWS Guido Aguilar MD [address] [place] [address] [place] [address] Referral ID Status Reason Start Date Expiration Date V isits Requested Visits Authorized [id number] Closed Auto-Generate d Referral 02/06/2024 03/07/2025 1 1 [facility] for visit Narrative* Diagnostic Procedure Only (Urgent) - Closed Specialty Diagnoses / Procedures Referred By Contac t Referred To Contact XR IMAGING Diagnoses Hand pain, right Procedures XR HAND GENERAL 3V PA/LAT/OBL RIGHT RADEX HAND MINIMUM 3 VIEWS Alta Moser, ROSENDO [address] [place] [address] [place] [address] Referral ID Status Reason Start Date Expiration Date V isits Requested Visits Authorized [id number] Closed Auto-Generate d Referral 10/08/2023 11/06/2024 1 1 [facility] for visit Narrative* Diagnostic Procedure Only (Routine) - Closed Specialty Diagnoses / Procedures Referred By Contac t Referred To Contact XR IMAGING Diagnoses Left hip pain Procedures XR HIP GENERAL 3V PELV/AP/LAT LEFT RADEX HIP UNILATERAL WITH PELVIS 2-3 VIEWS Cholo Soriano MD [address] [place] [address] [place] [address] Referral ID Status Reason Start Date Expiration Date V isits Requested Visits Authorized [id number] Closed Auto-Generate d Referral 11/05/2022 12/05/2023 1 1 [facility] for visit Narrative* Diagnostic Procedure Only (Routine) - Closed Specialty Diagnoses / Procedures Referred By Contac t Referred To Contact XR IMAGING Diagnoses Rib pain on right side Fall, subsequent encounter Procedures XR RIBS/CHEST 3V AP RIB/OBLS/CXR RIGHT RADEX RIBS UNI W/POSTEROANT CH MINIMUM 3 VIEWS Cholo Soriano MD [address] [place] [address] [place] [address] Referral ID Status Reason Start Date Expiration Date V isits Requested Visits Authorized [id number] Closed Auto-Generate d Referral 2022 04/10/2023 1 1 [facility] for visit Narrative* Diagnostic Procedure Only (Urgent) - Closed Specialty Diagnoses / Procedures Referred By Contac t Referred To Contact XR IMAGING Diagnoses Pain in rib Procedures XR RIBS/CHEST 3V AP RIB/OBLS/CXR RIGHT RADEX RIBS UNI W/POSTEROANT CH MINIMUM 3 VIEWS Nancy Swenson, 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DEBURRER MACHINE [address] [place] [address] [place] [address] Referral ID Status Reason Start Date Expiration Date V isits Requested Visits Authorized [id number] Closed Auto-Generate d Referral 08/29/2024 09/28/2025 1 1 [facility] for visit Narrative* Diagnostic Procedure Only (Routine) - Closed Specialty Diagnoses / Procedures Referred By Contac t Referred To Contact XR IMAGING Diagnoses Chronic left shoulder pain Procedures XR SHOULDER GENERAL 3V OR MORE AP/TRUE AP/OTHER LEFT RADEX SHOULDER COMPLETE MINIMUM 2 VIEWS Kerline Granda PA-C [address] [place] [address] Xr Imaging [id number] Referral ID Status Reason Start Date Expiration Date V isits Requested Visits Authorized [id number] Closed Auto-Generate d Referral 07/26/2024 08/25/2025 1 1 [facility] for visit Narrative* Diagnostic Procedure Only (Routine) - Closed Specialty Diagnoses / Procedures Referred By Contac t Referred To Contact BR IMAGING Diagnoses Encounter for screening mammogram for malignant neoplasm of breast Procedures BEBETO SCREENING W KAI SCREENING DIGITAL BREAST TOMOSYNTHESIS BI SCREENING MAMMOGRAPHY BI 2-VIEW BREAST INC CAD Magda Simon MD [address] [place] [address] Phone: tel: fax: BR IMAGING [address] [place] [address] Referral ID Status Reason Start Date Expiration Date V isits Requested Visits Authorized [id number] Closed Auto-Generate d Referral 11/28/2024 12/28/2025 1 1 [facility] for visit Narrative* Diagnostic Procedure Only (Routine) - Closed Specialty Diagnoses / Procedures Referred By Contac t Referred To Contact XR IMAGING Diagnoses Osteopenia of left femoral neck Procedures DXA-AXIAL SKELETON DXA BONE DENSITY STUDY 1/> SITES AXIAL SKEL Magda Simon MD [address] [place] [address] Phone: tel: fax: [place] [address] Referral ID Status Reason Start Date Expiration Date V isits Requested Visits Authorized [id number] Closed Auto-Generate d Referral 10/21/2024 11/20/2025 1 1 [facility] for visit Narrative* Diagnostic Procedure Only (Urgent) - Closed Specialty Diagnoses / Procedures Referred By Contac t Referred To Contact XR IMAGING Diagnoses Rib pain on right side Procedures XR RIBS/CHEST 3V AP RIB/OBLS/CXR RIGHT RADEX RIBS UNI W/POSTEROANT CH MINIMUM 3 VIEWS Cholo Soriano MD [address] [place] [address] Phone: tel: fax: [place] [address] Referral ID Status Reason Start Date Expiration Date V isits Requested Visits Authorized [id number] Closed Auto-Generate d Referral 04/28/2025 05/28/2026 1 1 [facility] for visit Narrative* Diagnostic Procedure Only (Urgent) - Closed Specialty Diagnoses / Procedures Referred By Contac t Referred To Contact XR IMAGING Diagnoses Pain Procedures XR KNEE GENERAL 4V AP BOTH/PA BOTH/LAT/MERC LEFT RADIOLOGIC EXAM KNEE COMPLETE 4/MORE VIEWS Nancy Swenson APRN.DEBURRER MACHINE [address] [place] [address] Phone: tel: fax: [place] [address] Referral ID Status Reason Start Date Expiration Date V isits Requested Visits Authorized [id number] Closed Auto-Generate d Referral 06/17/2025 07/17/2026 1 1 [facility] for visit Narrative* MRI/CT (Urgent) - Closed Specialty Diagnoses / Procedures Referred By Contac t Referred To Contact CT IMAGING Diagnoses Acute pain of left knee Fall, initial encounter Procedures CT KNEE WO IVCON LEFT CT LOWER EXTREMITY W/O CONTRAST MATERIAL Cholo Soriano MD [address] [place] [address] Phone: tel: fax: [place] [address] Referral ID Status Reason Start Date Expiration Date V isits Requested Visits Authorized [id number] Closed Auto-Generate d Referral 06/22/2025 07/22/2026 1 1 [facility] for visit Narrative* Outpatient Procedure (Routine) - Closed Specialty Diagnoses / Procedures Referred By Syeda t Referred To Contact [facility] Diagnoses Esophageal dysphagia Abnormal upper gastrointestinal barium series Esophageal spasm Duodenitis RUQ pain Procedures EGD DIAGNOSTIC EGD DIAGNOSTIC ESOPHAGOGASTRODUODENOSCOPY TRANSORAL DIAGNOSTIC Ronal Bell APRN.DEBURRER MACHINE [address] [facility] [place] [address] Phone: tel: fax: [facility] [address] [place] [address] Referral ID Status Reason Start Date Expiration Date V isits Requested Visits Authorized [id number] Closed Auto-Generate d Referral 06/01/2025 06/01/2026 1 1 [facility] Advance Directives No Advanced Directives Records FoundDocuments on File Type Date Recorded Patient Hop Worker Expl anation Advance Directive(s) 04/11/2019 7:13 AM Advance Directive(s) 03/21/2019 10:55 AM Advance Directive(s) 08/17/2018 5:58 AM Advance Directive(s) 08/30/2017 4:57 PM Advance Directive(s) 08/11/2017 8:14 AM Advance Directive(s) 06/10/2017 10:11 AM Advance Directive(s) 11/12/2016 3:28 PM Documents on File Type Date Recorded Patient Hop Worker Expl anation Advance Directive(s) 04/11/2019 7:13 AM Advance Directive(s) 03/21/2019 10:55 AM Advance Directive(s) 08/17/2018 5:58 AM Advance Directive(s) 08/30/2017 4:57 PM Advance Directive(s) 08/11/2017 8:14 AM Advance Directive(s) 06/10/2017 10:11 AM Advance Directive(s) 11/12/2016 3:28 PM Advance Directive Response Recorded Date/ Time Advance Directives Yes February 04 8:12am Living Will No March 05, 2022 2:07pm Power of Clay Dry Press Helper No March 05 2:07pm Advance Directive Response Recorded Date/ Time Advance Directives Yes February 04 7:12am Living Will No November 17 4:03pm Power of Clay Dry Press Helper No November 17, 2022 4:03pm Advance Directive Response Recorded Date/ Time Advance Directives Yes February 04, 2 021 7:12am Living Will No December 12 10:25am Power of Clay Dry Press Helper No December 12, 2023 10:25am Advance Directive Response Recorded Date/ Time Name of Medical Power of Clay Dry Press Helper Sherman January 12, 2024 1:30pm Advance Directives Yes February 04, 7:12am Living Will Yes January 12 1:30pm Power of Clay Dry Press Helper Yes January 12, 2024 1:30pm Documents on File Type Date Recorded Patient Hop Worker Expl anation Advance Directive(s) 02/18/2024 11:52 AM Documents on File Type Date Recorded Patient Hop Worker Expl anation Advance Directive(s) 02/18/2024 11:52 AM Advance Directive Response Recorded Date/ Time Do you have a Healthcare Power of Clay Dry Press Helper? No April 10, 2025 7:32am Advance Directives Yes February 04, 8:12am Chief Complaint and Reason for Visit Chief Complaint fall Chief Complaint THYROID NODULE Chief Complaint NODULE 1 Y FU upper ext Reason for Visit Essential (primary) hypertension Paroxysmal atrial fibrillation Chief Complaint 1 Y FU upper ext CELLULITIS Reason for Visit Essential (primary) hypertension Paroxysmal atrial fibrillation Chief Complaint Admit Date rash April 10, 2025 7:07a m Chief Complaint Admit Date rash April 10, 2025 7:07a m R13.14 Dysphagia, pharyngoesophageal pha se May 18, 2025 8:08am Family History No Family History Records Found Relationship Condition Age at Onset Recorded Date/T balbina father Cerebrovascular accident (CVA) Unknown Atrial fibrillation Unknown Reason for Referral Specialty Diagnoses / Procedures Referred By Syeda paiz Referred To Contact Podiatry Diagnoses Foot pain, bilateral Procedures CONSULT TO PODIATRY OFFICE/OUTPATIENT [facility] 60-74 MINUTES Cholo Soriano MD [address] [place] [address] Referral ID Status Reason Start Date Expiration Date Visits Requested Visits Authorized [id number] Authorized PCP Requested Referral 04/11/2022 04/11/2023 1 1 Specialty Diagnoses / Procedures Referred By Syeda paiz Referred To Contact US IMAGING Diagnoses Bilateral renal cysts RUQ pain Procedures US KIDNEY/BLADDER US RETROPERITONEAL REAL TIME W/IMAGE COMPLETE Cholo Soriano MD [address] [place] [address] Us Imaging Referral ID Status Reason Start Date Expiration Date Visits Requested Visits Authorized [id number] Authorized Auto-Generat ed Referral 04/11/2022 05/11/2023 1 1 Specialty Diagnoses / Procedures Referred By Contac t Referred To Contact CT IMAGING Diagnoses Lung nodules Procedures CT CHEST WO IVCON CAT SCAN OF CHEST Natalia Wood MD [address] [place] [address] Ct Imaging Referral ID Status Reason Start Date Expiration Date V isits Requested Visits Authorized [id number] Closed Auto-Generate d Referral 11/04/2021 12/04/2022 1 1 Specialty Diagnoses / Procedures Referred By Contac t Referred To Contact Orthopedics Diagnoses Limping with cause localized to lower leg Procedures CONSULT TO ORTHOPAEDICS OFFICE/OUTPATIENT [facility] 60-74 MINUTES Cholo Soriano MD [address] [place] [address] Referral ID Status Reason Start Date Expiration Date Visits Requested Visits Authorized [id number] Authorized PCP Requested Referral 2 10/15/2023 1 1 Specialty Diagnoses / Procedures Referred By Contac t Referred To Contact Physical Therapy Diagnoses Trochanteric bursitis of left hip Procedures CONSULT TO PHYSICAL THERAPY Eber Moore MD [address] [address] Referral ID Status Reason Start Date Expiration Date Visits Requested Visits Authorized [id number] Ref Not Required PCP Requested Referral 11/27/2022 11/27/2023 99 99 Specialty Diagnoses / Procedures Referred By Contac t Referred To Contact CT IMAGING Diagnoses Lung nodules Procedures CT CHEST WO IVCON DIAGNOSTIC COMPUTED TOMOGRAPHY THORAX W/O CNTRST Natalia Wood MD [address] [place] [address] Ct Imaging Referral ID Status Reason Start Date Expiration Date Visits Requested Visits Authorized [id number] Pending Review Auto-Generat ed Referral 05/19/2024 06/17/2024 1 1 Specialty Diagnoses / Procedures Referred By Contac t Referred To Contact Orthopedics Diagnoses Wrist pain, right Closed nondisplaced fracture of scaphoid of right wrist, unspecified portion of scaphoid, initial encounter Procedures CONSULT TO ORTHOPAEDICS OFFICE/OUTPATIENT [facility] MDM 60 MINUTES Guido Aguilar MD [address] [place] [address] Referral ID Status Reason Start Date Expiration Date Visits Requested Visits Authorized [id number] Authorized PCP Requested Referral 02/06/2024 02/05/2025 1 1 Specialty Diagnoses / Procedures Referred By Contac t Referred To Contact XR IMAGING Diagnoses Wrist pain, right Procedures XR WRIST GENERAL 3V PA/LAT/OBL RIGHT RADEX WRIST COMPLETE MINIMUM 3 VIEWS Guido Aguilar MD [address] [place] [address] [place] [address] Referral ID Status Reason Start Date Expiration Date V isits Requested Visits Authorized [id number] Closed Auto-Generate d Referral 02/06/2024 03/07/2025 1 1 Specialty Diagnoses / Procedures Referred By Contac t Referred To Contact MR IMAGING Diagnoses Closed nondisplaced fracture of scaphoid of right wrist, unspecified portion of scaphoid, initial encounter Procedures MRI WRIST WO IVCON RIGHT MRI ANY JT UPPER EXTREMITY W/O CONTRAST Zoey Lobo, PA-C [address] [place] [address] Mr Imaging [id number] Referral ID Status Reason Start Date Expiration Date Visits Requested Visits Authorized [id number] Pending Review Auto-Generat ed Referral 02/08/2024 03/09/2025 1 1 Specialty Diagnoses / Procedures Referred By Contac t Referred To Contact [facility] Diagnoses Balance problems Multiple falls Procedures CONSULT TO PHYSICAL THERAPY PHYSICAL THERAPY EVALUATION HIGH COMPLEX 45 MINS Cholo Soriano MD [address] [place] [address] [facility] [place] [address] [place] [address] Referral ID Status Reason Start Date Expiration Date Visits Requested Visits Authorized [id number] Authorized PCP Requested Referral Auto-Generate d Referral 02/10/2024 02/09/2025 99 99 Specialty Diagnoses / Procedures Referred By Contac t Referred To Contact CT IMAGING Diagnoses Pain of cheek Procedures CT FACIAL BONE/ALEKSANDRA WO IVCON CT MAXILLOFACIAL W/O CONTRAST MATERIAL Cholo Soriano MD [address] [place] [address] [place] [address] Referral ID Status Reason Start Date Expiration Date Visits Requested Visits Authorized [id number] Authorized Auto-Generat ed Referral 02/10/2024 2025 1 1 Referral ID Status Reason Start Date Expiration Date V isits Requested Visits Authorized [id number] Closed Auto-Generate d Referral 02/10/2024 2025 1 1 Specialty Diagnoses / Procedures Referred By Contac t Referred To Contact CT IMAGING Diagnoses Lung nodules Procedures CT CHEST WO IVCON DIAGNOSTIC COMPUTED TOMOGRAPHY THORAX W/O CNTRST Natalia Wood MD [address] [place] [address] [place] [address] Referral ID Status Reason Start Date Expiration Date Visits Requested Visits Authorized [id number] New Request Auto-Generat ed Referral 06/15/2025 07/15/2025 1 1 Health Concerns Infection Onset Date Last Indicated Resolved Time COVID-19 Rule-Out 09/18/2022 09/18/2022 Infection Onset Date Last Indicated Resolved Time COVID-19 Rule-Out 09/18/2022 09/18/2022 09/19/2022 3:05 AM EDT COVID-19 Confirmed 09/18/2022 09/18/2022 Summary Purpose Additional Source Comments Source Comments (unrecognize d section and content) In the event this informatio n is protected by the Federal Confidentiality of Alcohol and Drug Abuse Patient Records regulations: The Federal rules restrict any use of the information to criminally investigate or prosecute any alcohol or drug abuse patient.[facility] CenterIn the event this information is protected by the Federal Confidentiality of Alcohol and Drug Abuse Patient Records regulations: The Federal rules restrict any use of the information to criminally investigate or prosecute any alcohol or drug abuse patient.[facility] CenterIn the event this information is protected by the Federal Confidentiality of Alcohol and Drug Abuse Patient Records regulations: The Federal rules restrict any use of the information to criminally investigate or prosecute any alcohol or drug abuse patient.[facility] CenterIn the event this information is protected by the Federal Confidentiality of Alcohol and Drug Abuse Patient Records regulations: The Federal rules restrict any use of the information to criminally investigate or prosecute any alcohol or drug abuse patient.[facility] CenterIn the event this information is protected by the Federal Confidentiality of Alcohol and Drug Abuse Patient Records regulations: The Federal rules restrict any use of the information to criminally investigate or prosecute any alcohol or drug abuse patient.[facility] CenterIn the event this information is protected by the Federal Confidentiality of Alcohol and Drug Abuse Patient Records regulations: The Federal rules restrict any use of the information to criminally investigate or prosecute any alcohol or drug abuse patient.[facility] CenterIn the event this information is protected by the Federal Confidentiality of Alcohol and Drug Abuse Patient Records regulations: The Federal rules restrict any use of the information to criminally investigate or prosecute any alcohol or drug abuse patient.[facility] CenterIn the event this information is protected by the Federal Confidentiality of Alcohol and Drug Abuse Patient Records regulations: The Federal rules restrict any use of the information to criminally investigate or prosecute any alcohol or drug abuse patient.[facility] CenterIn the event this information is protected by the Federal Confidentiality of Alcohol and Drug Abuse Patient Records regulations: The Federal rules restrict any use of the information to criminally investigate or prosecute any alcohol or drug abuse patient.[facility] CenterIn the event this information is protected by the Federal Confidentiality of Alcohol and Drug Abuse Patient Records regulations: The Federal rules restrict any use of the information to criminally investigate or prosecute any alcohol or drug abuse patient.[facility] CenterIn the event this information is protected by the Federal Confidentiality of Alcohol and Drug Abuse Patient Records regulations: The Federal rules restrict any use of the information to criminally investigate or prosecute any alcohol or drug abuse patient.[facility] CenterIn the event this information is protected by the Federal Confidentiality of Alcohol and Drug Abuse Patient Records regulations: The Federal rules restrict any use of the information to criminally investigate or prosecute any alcohol or drug abuse patient.[facility] CenterIn the event this information is protected by the Federal Confidentiality of Alcohol and Drug Abuse Patient Records regulations: The Federal rules restrict any use of the information to criminally investigate or prosecute any alcohol or drug abuse patient.[facility] CenterIn the event this information is protected by the Federal Confidentiality of Alcohol and Drug Abuse Patient Records regulations: The Federal rules restrict any use of the information to criminally investigate or prosecute any alcohol or drug abuse patient.[facility] CenterIn the event this information is protected by the Federal Confidentiality of Alcohol and Drug Abuse Patient Records regulations: The Federal rules restrict any use of the information to criminally investigate or prosecute any alcohol or drug abuse patient.[facility] CenterIn the event this information is protected by the Federal Confidentiality of Alcohol and Drug Abuse Patient Records regulations: The Federal rules restrict any use of the information to criminally investigate or prosecute any alcohol or drug abuse patient.[facility] CenterIn the event this information is protected by the Federal Confidentiality of Alcohol and Drug Abuse Patient Records regulations: The Federal rules restrict any use of the information to criminally investigate or prosecute any alcohol or drug abuse patient.[facility] the event this information is protected by the Federal Confidentiality of Alcohol and Drug Abuse Patient Records regulations: The Federal rules restrict any use of the information to criminally investigate or prosecute any alcohol or drug abuse patient.[facility] CenterIn the event this information is protected by the Federal Confidentiality of Alcohol and Drug Abuse Patient Records regulations: The Federal rules restrict any use of the information to criminally investigate or prosecute any alcohol or drug abuse patient.[facility] CenterIn the event this information is protected by the Federal Confidentiality of Alcohol and Drug Abuse Patient Records regulations: The Federal rules restrict any use of the information to criminally investigate or prosecute any alcohol or drug abuse patient.[facility] the event this information is protected by the Federal Confidentiality of Alcohol and Drug Abuse Patient Records regulations: The Federal rules restrict any use of the information to criminally investigate or prosecute any alcohol or drug abuse patient.[facility] CenterIn the event this information is protected by the Federal Confidentiality of Alcohol and Drug Abuse Patient Records regulations: The Federal rules restrict any use of the information to criminally investigate or prosecute any alcohol or drug abuse patient.[facility] CenterIn the event this information is protected by the Federal Confidentiality of Alcohol and Drug Abuse Patient Records regulations: The Federal rules restrict any use of the information to criminally investigate or prosecute any alcohol or drug abuse patient.[facility] CenterIn the event this information is protected by the Federal Confidentiality of Alcohol and Drug Abuse Patient Records regulations: The Federal rules restrict any use of the information to criminally investigate or prosecute any alcohol or drug abuse patient.[facility] CenterIn the event this information is protected by the Federal Confidentiality of Alcohol and Drug Abuse Patient Records regulations: The Federal rules restrict any use of the information to criminally investigate or prosecute any alcohol or drug abuse patient.[facility] CenterIn the event this information is protected by the Federal Confidentiality of Alcohol and Drug Abuse Patient Records regulations: The Federal rules restrict any use of the information to criminally investigate or prosecute any alcohol or drug abuse patient.[facility] CenterIn the event this information is protected by the Federal Confidentiality of Alcohol and Drug Abuse Patient Records regulations: The Federal rules restrict any use of the information to criminally investigate or prosecute any alcohol or drug abuse patient.[facility] CenterIn the event this information is protected by the Federal Confidentiality of Alcohol and Drug Abuse Patient Records regulations: The Federal rules restrict any use of the information to criminally investigate or prosecute any alcohol or drug abuse patient.[facility] CenterIn the event this information is protected by the Federal Confidentiality of Alcohol and Drug Abuse Patient Records regulations: The Federal rules restrict any use of the information to criminally investigate or prosecute any alcohol or drug abuse patient.[facility] CenterIn the event this information is protected by the Federal Confidentiality of Alcohol and Drug Abuse Patient Records regulations: The Federal rules restrict any use of the information to criminally investigate or prosecute any alcohol or drug abuse patient.[facility] CenterIn the event this information is protected by the Federal Confidentiality of Alcohol and Drug Abuse Patient Records regulations: The Federal rules restrict any use of the information to criminally investigate or prosecute any alcohol or drug abuse patient.[facility] CenterIn the event this information is protected by the Federal Confidentiality of Alcohol and Drug Abuse Patient Records regulations: The Federal rules restrict any use of the information to criminally investigate or prosecute any alcohol or drug abuse patient.[facility] CenterIn the event this information is protected by the Federal Confidentiality of Alcohol and Drug Abuse Patient Records regulations: The Federal rules restrict any use of the information to criminally investigate or prosecute any alcohol or drug abuse patient.[facility] CenterIn the event this information is protected by the Federal Confidentiality of Alcohol and Drug Abuse Patient Records regulations: The Federal rules restrict any use of the information to criminally investigate or prosecute any alcohol or drug abuse patient.[facility] CenterIn the event this information is protected by the Federal Confidentiality of Alcohol and Drug Abuse Patient Records regulations: The Federal rules restrict any use of the information to criminally investigate or prosecute any alcohol or drug abuse patient.[facility] CenterIn the event this information is protected by the Federal Confidentiality of Alcohol and Drug Abuse Patient Records regulations: The Federal rules restrict any use of the information to criminally investigate or prosecute any alcohol or drug abuse patient.[facility] CenterIn the event this information is protected by the Federal Confidentiality of Alcohol and Drug Abuse Patient Records regulations: The Federal rules restrict any use of the information to criminally investigate or prosecute any alcohol or drug abuse patient.[facility] CenterIn the event this information is protected by the Federal Confidentiality of Alcohol and Drug Abuse Patient Records regulations: The Federal rules restrict any use of the information to criminally investigate or prosecute any alcohol or drug abuse patient.[facility] CenterIn the event this information is protected by the Federal Confidentiality of Alcohol and Drug Abuse Patient Records regulations: The Federal rules restrict any use of the information to criminally investigate or prosecute any alcohol or drug abuse patient.[facility] CenterIn the event this information is protected by the Federal Confidentiality of Alcohol and Drug Abuse Patient Records regulations: The Federal rules restrict any use of the information to criminally investigate or prosecute any alcohol or drug abuse patient.[facility] CenterIn the event this information is protected by the Federal Confidentiality of Alcohol and Drug Abuse Patient Records regulations: The Federal rules restrict any use of the information to criminally investigate or prosecute any alcohol or drug abuse patient.[facility] CenterIn the event this information is protected by the Federal Confidentiality of Alcohol and Drug Abuse Patient Records regulations: The Federal rules restrict any use of the information to criminally investigate or prosecute any alcohol or drug abuse patient.[facility] CenterIn the event this information is protected by the Federal Confidentiality of Alcohol and Drug Abuse Patient Records regulations: The Federal rules restrict any use of the information to criminally investigate or prosecute any alcohol or drug abuse patient.[facility] CenterIn the event this information is protected by the Federal Confidentiality of Alcohol and Drug Abuse Patient Records regulations: The Federal rules restrict any use of the information to criminally investigate or prosecute any alcohol or drug abuse patient.[facility] CenterIn the event this information is protected by the Federal Confidentiality of Alcohol and Drug Abuse Patient Records regulations: The Federal rules restrict any use of the information to criminally investigate or prosecute any alcohol or drug abuse patient.[facility] CenterIn the event this information is protected by the Federal Confidentiality of Alcohol and Drug Abuse Patient Records regulations: The Federal rules restrict any use of the information to criminally investigate or prosecute any alcohol or drug abuse patient.[facility] CenterIn the event this information is protected by the Federal Confidentiality of Alcohol and Drug Abuse Patient Records regulations: The Federal rules restrict any use of the information to criminally investigate or prosecute any alcohol or drug abuse patient.[facility] CenterIn the event this information is protected by the Federal Confidentiality of Alcohol and Drug Abuse Patient Records regulations: The Federal rules restrict any use of the information to criminally investigate or prosecute any alcohol or drug abuse patient.[facility] CenterIn the event this information is protected by the Federal Confidentiality of Alcohol and Drug Abuse Patient Records regulations: The Federal rules restrict any use of the information to criminally investigate or prosecute any alcohol or drug abuse patient.[facility] CenterIn the event this information is protected by the Federal Confidentiality of Alcohol and Drug Abuse Patient Records regulations: The Federal rules restrict any use of the information to criminally investigate or prosecute any alcohol or drug abuse patient.[facility] CenterIn the event this information is protected by the Federal Confidentiality of Alcohol and Drug Abuse Patient Records regulations: The Federal rules restrict any use of the information to criminally investigate or prosecute any alcohol or drug abuse patient.[facility] CenterIn the event this information is protected by the Federal Confidentiality of Alcohol and Drug Abuse Patient Records regulations: The Federal rules restrict any use of the information to criminally investigate or prosecute any alcohol or drug abuse patient.[facility] CenterIn the event this information is protected by the Federal Confidentiality of Alcohol and Drug Abuse Patient Records regulations: The Federal rules restrict any use of the information to criminally investigate or prosecute any alcohol or drug abuse patient.[facility] CenterIn the event this information is protected by the Federal Confidentiality of Alcohol and Drug Abuse Patient Records regulations: The Federal rules restrict any use of the information to criminally investigate or prosecute any alcohol or drug abuse patient.[facility] CenterIn the event this information is protected by the Federal Confidentiality of Alcohol and Drug Abuse Patient Records regulations: The Federal rules restrict any use of the information to criminally investigate or prosecute any alcohol or drug abuse patient.[facility] CenterIn the event this information is protected by the Federal Confidentiality of Alcohol and Drug Abuse Patient Records regulations: The Federal rules restrict any use of the information to criminally investigate or prosecute any alcohol or drug abuse patient.[facility] CenterIn the event this information is protected by the Federal Confidentiality of Alcohol and Drug Abuse Patient Records regulations: The Federal rules restrict any use of the information to criminally investigate or prosecute any alcohol or drug abuse patient.[facility] CenterIn the event this information is protected by the Federal Confidentiality of Alcohol and Drug Abuse Patient Records regulations: The Federal rules restrict any use of the information to criminally investigate or prosecute any alcohol or drug abuse patient.[facility] CenterIn the event this information is protected by the Federal Confidentiality of Alcohol and Drug Abuse Patient Records regulations: The Federal rules restrict any use of the information to criminally investigate or prosecute any alcohol or drug abuse patient.[facility] CenterIn the event this information is protected by the Federal Confidentiality of Alcohol and Drug Abuse Patient Records regulations: The Federal rules restrict any use of the information to criminally investigate or prosecute any alcohol or drug abuse patient.[facility] CenterIn the event this information is protected by the Federal Confidentiality of Alcohol and Drug Abuse Patient Records regulations: The Federal rules restrict any use of the information to criminally investigate or prosecute any alcohol or drug abuse patient.[facility] CenterIn the event this information is protected by the Federal Confidentiality of Alcohol and Drug Abuse Patient Records regulations: The Federal rules restrict any use of the information to criminally investigate or prosecute any alcohol or drug abuse patient.[facility] CenterIn the event this information is protected by the Federal Confidentiality of Alcohol and Drug Abuse Patient Records regulations: The Federal rules restrict any use of the information to criminally investigate or prosecute any alcohol or drug abuse patient.[facility] CenterIn the event this information is protected by the Federal Confidentiality of Alcohol and Drug Abuse Patient Records regulations: The Federal rules restrict any use of the information to criminally investigate or prosecute any alcohol or drug abuse patient.[facility] CenterIn the event this information is protected by the Federal Confidentiality of Alcohol and Drug Abuse Patient Records regulations: The Federal rules restrict any use of the information to criminally investigate or prosecute any alcohol or drug abuse patient.[facility] CenterIn the event this information is protected by the Federal Confidentiality of Alcohol and Drug Abuse Patient Records regulations: The Federal rules restrict any use of the information to criminally investigate or prosecute any alcohol or drug abuse patient.[facility] CenterIn the event this information is protected by the Federal Confidentiality of Alcohol and Drug Abuse Patient Records regulations: The Federal rules restrict any use of the information to criminally investigate or prosecute any alcohol or drug abuse patient.[facility] the event this information is protected by the Federal Confidentiality of Alcohol and Drug Abuse Patient Records regulations: The Federal rules restrict any use of the information to criminally investigate or prosecute any alcohol or drug abuse patient.[facility] CenterIn the event this information is protected by the Federal Confidentiality of Alcohol and Drug Abuse Patient Records regulations: The Federal rules restrict any use of the information to criminally investigate or prosecute any alcohol or drug abuse patient.[facility] CenterIn the event this information is protected by the Federal Confidentiality of Alcohol and Drug Abuse Patient Records regulations: The Federal rules restrict any use of the information to criminally investigate or prosecute any alcohol or drug abuse patient.[facility]In the event this information is protected by the Federal Confidentiality of Alcohol and Drug Abuse Patient Records regulations: The Federal rules restrict any use of the information to criminally investigate or prosecute any alcohol or drug abuse patient.[facility] CenterIn the event this information is protected by the Federal Confidentiality of Alcohol and Drug Abuse Patient Records regulations: The Federal rules restrict any use of the information to criminally investigate or prosecute any alcohol or drug abuse patient.[facility]In the event this information is protected by the Federal Confidentiality of Alcohol and Drug Abuse Patient Records regulations: The Federal rules restrict any use of the information to criminally investigate or prosecute any alcohol or drug abuse patient.[facility]In the event this information is protected by the Federal Confidentiality of Alcohol and Drug Abuse Patient Records regulations: The Federal rules restrict any use of the information to criminally investigate or prosecute any alcohol or drug abuse patient.[facility] CenterIn the event this information is protected by the Federal Confidentiality of Alcohol and Drug Abuse Patient Records regulations: The Federal rules restrict any use of the information to criminally investigate or prosecute any alcohol or drug abuse patient.[facility]In the event this information is protected by the Federal Confidentiality of Alcohol and Drug Abuse Patient Records regulations: The Federal rules restrict any use of the information to criminally investigate or prosecute any alcohol or drug abuse patient.[facility]In the event this information is protected by the Federal Confidentiality of Alcohol and Drug Abuse Patient Records regulations: The Federal rules restrict any use of the information to criminally investigate or prosecute any alcohol or drug abuse patient.[facility] CenterIn the event this information is protected by the Federal Confidentiality of Alcohol and Drug Abuse Patient Records regulations: The Federal rules restrict any use of the information to criminally investigate or prosecute any alcohol or drug abuse patient.[facility] CenterIn the event this information is protected by the Federal Confidentiality of Alcohol and Drug Abuse Patient Records regulations: The Federal rules restrict any use of the information to criminally investigate or prosecute any alcohol or drug abuse patient.[facility] CenterIn the event this information is protected by the Federal Confidentiality of Alcohol and Drug Abuse Patient Records regulations: The Federal rules restrict any use of the information to criminally investigate or prosecute any alcohol or drug abuse patient.[facility] CenterIn the event this information is protected by the Federal Confidentiality of Alcohol and Drug Abuse Patient Records regulations: The Federal rules restrict any use of the information to criminally investigate or prosecute any alcohol or drug abuse patient.[facility] CenterIn the event this information is protected by the Federal Confidentiality of Alcohol and Drug Abuse Patient Records regulations: The Federal rules restrict any use of the information to criminally investigate or prosecute any alcohol or drug abuse patient.[facility] CenterIn the event this information is protected by the Federal Confidentiality of Alcohol and Drug Abuse Patient Records regulations: The Federal rules restrict any use of the information to criminally investigate or prosecute any alcohol or drug abuse patient.[facility] CenterIn the event this information is protected by the Federal Confidentiality of Alcohol and Drug Abuse Patient Records regulations: The Federal rules restrict any use of the information to criminally investigate or prosecute any alcohol or drug abuse patient.[facility] CenterIn the event this information is protected by the Federal Confidentiality of Alcohol and Drug Abuse Patient Records regulations: The Federal rules restrict any use of the information to criminally investigate or prosecute any alcohol or drug abuse patient.[facility] CenterIn the event this information is protected by the Federal Confidentiality of Alcohol and Drug Abuse Patient Records regulations: The Federal rules restrict any use of the information to criminally investigate or prosecute any alcohol or drug abuse patient.[facility] CenterIn the event this information is protected by the Federal Confidentiality of Alcohol and Drug Abuse Patient Records regulations: The Federal rules restrict any use of the information to criminally investigate or prosecute any alcohol or drug abuse patient.[facility] CenterIn the event this information is protected by the Federal Confidentiality of Alcohol and Drug Abuse Patient Records regulations: The Federal rules restrict any use of the information to criminally investigate or prosecute any alcohol or drug abuse patient.[facility] CenterIn the event this information is protected by the Federal Confidentiality of Alcohol and Drug Abuse Patient Records regulations: The Federal rules restrict any use of the information to criminally investigate or prosecute any alcohol or drug abuse patient.[facility] CenterIn the event this information is protected by the Federal Confidentiality of Alcohol and Drug Abuse Patient Records regulations: The Federal rules restrict any use of the information to criminally investigate or prosecute any alcohol or drug abuse patient.[facility] CenterIn the event this information is protected by the Federal Confidentiality of Alcohol and Drug Abuse Patient Records regulations: The Federal rules restrict any use of the information to criminally investigate or prosecute any alcohol or drug abuse patient.[facility] CenterIn the event this information is protected by the Federal Confidentiality of Alcohol and Drug Abuse Patient Records regulations: The Federal rules restrict any use of the information to criminally investigate or prosecute any alcohol or drug abuse patient.[facility] CenterIn the event this information is protected by the Federal Confidentiality of Alcohol and Drug Abuse Patient Records regulations: The Federal rules restrict any use of the information to criminally investigate or prosecute any alcohol or drug abuse patient.[facility] CenterIn the event this information is protected by the Federal Confidentiality of Alcohol and Drug Abuse Patient Records regulations: The Federal rules restrict any use of the information to criminally investigate or prosecute any alcohol or drug abuse patient.[facility] CenterIn the event this information is protected by the Federal Confidentiality of Alcohol and Drug Abuse Patient Records regulations: The Federal rules restrict any use of the information to criminally investigate or prosecute any alcohol or drug abuse patient.[facility] CenterIn the event this information is protected by the Federal Confidentiality of Alcohol and Drug Abuse Patient Records regulations: The Federal rules restrict any use of the information to criminally investigate or prosecute any alcohol or drug abuse patient.[facility] CenterIn the event this information is protected by the Federal Confidentiality of Alcohol and Drug Abuse Patient Records regulations: The Federal rules restrict any use of the information to criminally investigate or prosecute any alcohol or drug abuse patient.[facility] CenterIn the event this information is protected by the Federal Confidentiality of Alcohol and Drug Abuse Patient Records regulations: The Federal rules restrict any use of the information to criminally investigate or prosecute any alcohol or drug abuse patient.[facility] CenterIn the event this information is protected by the Federal Confidentiality of Alcohol and Drug Abuse Patient Records regulations: The Federal rules restrict any use of the information to criminally investigate or prosecute any alcohol or drug abuse patient.[facility] CenterIn the event this information is protected by the Federal Confidentiality of Alcohol and Drug Abuse Patient Records regulations: The Federal rules restrict any use of the information to criminally investigate or prosecute any alcohol or drug abuse patient.[facility] CenterIn the event this information is protected by the Federal Confidentiality of Alcohol and Drug Abuse Patient Records regulations: The Federal rules restrict any use of the information to criminally investigate or prosecute any alcohol or drug abuse patient.[facility] CenterIn the event this information is protected by the Federal Confidentiality of Alcohol and Drug Abuse Patient Records regulations: The Federal rules restrict any use of the information to criminally investigate or prosecute any alcohol or drug abuse patient.[facility] CenterIn the event this information is protected by the Federal Confidentiality of Alcohol and Drug Abuse Patient Records regulations: The Federal rules restrict any use of the information to criminally investigate or prosecute any alcohol or drug abuse patient.[facility] CenterIn the event this information is protected by the Federal Confidentiality of Alcohol and Drug Abuse Patient Records regulations: The Federal rules restrict any use of the information to criminally investigate or prosecute any alcohol or drug abuse patient.[facility] CenterIn the event this information is protected by the Federal Confidentiality of Alcohol and Drug Abuse Patient Records regulations: The Federal rules restrict any use of the information to criminally investigate or prosecute any alcohol or drug abuse patient.[facility] CenterIn the event this information is protected by the Federal Confidentiality of Alcohol and Drug Abuse Patient Records regulations: The Federal rules restrict any use of the information to criminally investigate or prosecute any alcohol or drug abuse patient.[facility] CenterIn the event this information is protected by the Federal Confidentiality of Alcohol and Drug Abuse Patient Records regulations: The Federal rules restrict any use of the information to criminally investigate or prosecute any alcohol or drug abuse patient.[facility] CenterIn the event this information is protected by the Federal Confidentiality of Alcohol and Drug Abuse Patient Records regulations: The Federal rules restrict any use of the information to criminally investigate or prosecute any alcohol or drug abuse patient.[facility] CenterIn the event this information is protected by the Federal Confidentiality of Alcohol and Drug Abuse Patient Records regulations: The Federal rules restrict any use of the information to criminally investigate or prosecute any alcohol or drug abuse patient.[facility] CenterIn the event this information is protected by the Federal Confidentiality of Alcohol and Drug Abuse Patient Records regulations: The Federal rules restrict any use of the information to criminally investigate or prosecute any alcohol or drug abuse patient.[facility] CenterIn the event this information is protected by the Federal Confidentiality of Alcohol and Drug Abuse Patient Records regulations: The Federal rules restrict any use of the information to criminally investigate or prosecute any alcohol or drug abuse patient.[facility] CenterIn the event this information is protected by the Federal Confidentiality of Alcohol and Drug Abuse Patient Records regulations: The Federal rules restrict any use of the information to criminally investigate or prosecute any alcohol or drug abuse patient.[facility] CenterIn the event this information is protected by the Federal Confidentiality of Alcohol and Drug Abuse Patient Records regulations: The Federal rules restrict any use of the information to criminally investigate or prosecute any alcohol or drug abuse patient.[facility] CenterIn the event this information is protected by the Federal Confidentiality of Alcohol and Drug Abuse Patient Records regulations: The Federal rules restrict any use of the information to criminally investigate or prosecute any alcohol or drug abuse patient.[facility] CenterIn the event this information is protected by the Federal Confidentiality of Alcohol and Drug Abuse Patient Records regulations: The Federal rules restrict any use of the information to criminally investigate or prosecute any alcohol or drug abuse patient.[facility] CenterIn the event this information is protected by the Federal Confidentiality of Alcohol and Drug Abuse Patient Records regulations: The Federal rules restrict any use of the information to criminally investigate or prosecute any alcohol or drug abuse patient.[facility] CenterIn the event this information is protected by the Federal Confidentiality of Alcohol and Drug Abuse Patient Records regulations: The Federal rules restrict any use of the information to criminally investigate or prosecute any alcohol or drug abuse patient.[facility] the event this information is protected by the Federal Confidentiality of Alcohol and Drug Abuse Patient Records regulations: The Federal rules restrict any use of the information to criminally investigate or prosecute any alcohol or drug abuse patient.[facility] CenterIn the event this information is protected by the Federal Confidentiality of Alcohol and Drug Abuse Patient Records regulations: The Federal rules restrict any use of the information to criminally investigate or prosecute any alcohol or drug abuse patient.[facility] CenterIn the event this information is protected by the Federal Confidentiality of Alcohol and Drug Abuse Patient Records regulations: The Federal rules restrict any use of the information to criminally investigate or prosecute any alcohol or drug abuse patient.[facility]In the event this information is protected by the Federal Confidentiality of Alcohol and Drug Abuse Patient Records regulations: The Federal rules restrict any use of the information to criminally investigate or prosecute any alcohol or drug abuse patient.[facility] CenterIn the event this information is protected by the Federal Confidentiality of Alcohol and Drug Abuse Patient Records regulations: The Federal rules restrict any use of the information to criminally investigate or prosecute any alcohol or drug abuse patient.[facility] CenterIn the event this information is protected by the Federal Confidentiality of Alcohol and Drug Abuse Patient Records regulations: The Federal rules restrict any use of the information to criminally investigate or prosecute any alcohol or drug abuse patient.[facility] CenterIn the event this information is protected by the Federal Confidentiality of Alcohol and Drug Abuse Patient Records regulations: The Federal rules restrict any use of the information to criminally investigate or prosecute any alcohol or drug abuse patient.[facility] CenterIn the event this information is protected by the Federal Confidentiality of Alcohol and Drug Abuse Patient Records regulations: The Federal rules restrict any use of the information to criminally investigate or prosecute any alcohol or drug abuse patient.[facility] Reason for Visit (unrecogniz ed section and content) Reason Comments New Pain Specialty Diagnoses / Procedures Referred By Contac t Referred To Contact Orthopedics / ORTHOPAEDIC SURGERY Diagnoses shoulder Procedures MARY ESTABLISH Self Murphy Olmos MD [address] [facility]. [facility] [address] [place] [address] Referral ID Status Reason Start Date Expiration Date V isits Requested Visits Authorized [id number] Outside PCP 08/12/2024 11/10/2024 1 1 Reason Comments PT Eval Specialty Diagnoses / Procedures Referred By Contac t Referred To Contact [facility] Diagnoses Balance problems Multiple falls Procedures CONSULT TO PHYSICAL THERAPY PHYSICAL THERAPY EVALUATION HIGH COMPLEX 45 MINS Cholo Soriano MD [address] [place] [address] [facility] [place] [address] [place] [address] Referral ID Status Reason Start Date Expiration Date Visits Requested Visits Authorized [id number] Authorized PCP Requested Referral Auto-Generate d Referral 02/10/2024 02/09/2025 99 99 Reason Comments PT Discharge Reason Comments PT Progress Note Reason Comments Physical Therapy Reason Comments Results Reason Comments Medicare Wellness Exam Reason Onset Date Comments Refill Request 04/28/[address] Specialty Diagnoses / Procedures Referred By Contac t Referred To Contact CT IMAGING Diagnoses Lung nodules Procedures CT CHEST WO IVCON CAT SCAN OF CHEST Natalia Wood MD [address] [place] [address] Ct [facility] Referral ID Status Reason Start Date Expiration Date V isits Requested Visits Authorized [id number] Closed Auto-Generate d Referral 11/04/2021 12/04/2022 1 1 Reason Comments Established Patient Reason Comments New Numbness Specialty Diagnoses / Procedures Referred By Contac t Referred To Contact Podiatry Diagnoses Foot pain, bilateral Procedures CONSULT TO PODIATRY OFFICE/OUTPATIENT [facility] 60-74 MINUTES Cholo Soriano MD [address] [place] [address] Referral ID Status Reason Start Date Expiration Date V isits Requested Visits Authorized [id number] Closed PCP Requested Referral 04/11/2022 04/11/2023 1 [...] lower leg Procedures CONSULT TO ORTHOPAEDICS OFFICE/OUTPATIENT [facility] 60-74 MINUTES Cholo Soriano MD [address] [place] [address] Referral ID Status Reason Start Date Expiration Date V isits Requested Visits Authorized [id number] Closed PCP Requested Referral 10/15/2022 10/15/2023 1 [...] Comments Breast Problem Reason Comments Outside Dermatology Reason Comments Ankle Pain R ankle red and swol roxanne, possible spider bite x1 day Reason Comments right wrist pain Fell yesterday Reason Comments Patient Question Reason Comments Wrist/forearm Injury Reason Comments Follow Up Specialty Diagnoses / Procedures Referred By Contac t Referred To Contact CT IMAGING Diagnoses Pain of cheek Procedures CT FACIAL BONE/ALEKSANDRA WO IVCON CT MAXILLOFACIAL W/O CONTRAST MATERIAL Cholo Soriano MD [address] [place] [address] [place] [address] Referral ID Status Reason Start Date Expiration Date V isits Requested Visits Authorized [id number] Closed Auto-Generate d Referral 02/10/2024 2025 1 1 Reason Comments pt appt Reason Comments Follow Up Pain Injections Reason Comments Radiology CT Specialty Diagnoses / Procedures Referred By Contac t Referred To Contact CT IMAGING Diagnoses Lung nodules Procedures CT CHEST WO IVCON DIAGNOSTIC COMPUTED TOMOGRAPHY THORAX W/O CNTRST Natalia Wood MD [address] [place] [address] [place] [address] Referral ID Status Reason Start Date Expiration Date V isits Requested Visits Authorized [id number] Closed Auto-Generate d Referral 05/19/2024 06/17/2024 1 1 Reason [address] Nodule ct scan done Reason Comments Rash L upper arm x1 day Reason Comments Appointment Reason Comments Radiology US Specialty Diagnoses / Procedures Referred By Contac t Referred To Contact [facility] Diagnoses Thyroid nodule Procedures US THYROID/PARATHYROID US SOFT TISSUE HEAD & NECK REAL TIME IMGE DOCM Cholo Soriano MD [address] [place] [address] [place] [address] Referral ID Status Reason Start Date Expiration Date V isits Requested Visits Authorized [id number] Closed Auto-Generate d Referral 08/01/2024 07/08/2025 1 1 Reason Comments Pain Right rib pain from fall x 2 days Reason Comments Cough Chest congestion, Co ugh, SOB, tightness in upper chest, sore throat x 10 days Reason Comments Outside Cardiology Reason Comments Results Outside ECHO Reason Comments 6 Month Exam Reason Comments Sore Throat States feels throat is congested x 4 days Reason Comments Throat Problem Spasms in throat. Mejia s another one this week, takes a few minutes to get over it. Does not have it very often.Hx of hematoma in throat after her last surgery. She will be having shoulder surgery and wants to know if she should expect problems with throat. Reason Comments Orders Reason Comments Flu Like Symptoms + exposure, cough, c hills, fever x1 day Reason Comments Established Patient Follow Up Pain Specialty Diagnoses / Procedures Referred By Contac t Referred To Contact Orthopedics / ORTHOPAEDIC SURGERY Diagnoses injection in left shoulder Procedures MARY ESTABLISH Self Amarilis, Murphy Swenson MD [address] [address] Phone: tel: fax: Referral ID Status Reason Start Date Expiration Date V isits Requested Visits Authorized [id number] Pending Review 12/30/2024 03/30/2025 1 1 Reason Comments Follow Up Reason Onset Date Comments Population Health Navigation Outreach 04/03/2025 [facility] Reason Comments Trauma R upper abd redness, bullseye area around same, area has increased in size, increase in aches and pains x 1 week Reason Comments ER Discharge Summary Reason Comments Follow Up Reason Comments Medicare Wellness Exam Reason Comments Esophageal dysphagia Trouble swallowing, pain in the RUQ and RLQ mostly at night. Specialty Diagnoses / Procedures Referred By Contac t Referred To Contact Gastroenterology Diagnoses Esophageal dysphagia Abnormal upper gastrointestinal barium series Esophageal spasm Duodenitis Procedures CONSULT TO GASTROENTEROLOGY OFFICE/OUTPATIENT [facility] 60 MINUTES Cholo Soriano MD [address] [place] [address] Phone: tel: fax: Referral ID Status Reason Start Date Expiration Date V isits Requested Visits Authorized [id number] Closed PCP Requested Referral 05/31/2025 05/31/2026 1 1 Reason Onset Date Comments Anesthesia Consult 06/01/2025 Specialty Diagnoses / Procedures Referred By Contac t Referred To Contact [facility] Diagnoses RUQ pain Procedures US ABD RIGHT UPPER QUADRANT US ABDOMINAL REAL TIME W/IMAGE LIMITED 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, 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[employer] [address] [facility] [place] [address] Phone: tel: fax: [place] [phone] Referral ID Status Reason Start Date Expiration Date V isits Requested Visits Authorized [id number] Closed Auto-Generate d Referral 06/01/2025 07/01/2026 1 1 Reason Comments Fall X 6 days ago, fell o n steps, hit R side on something, under armpit/beside breasts, some bruising, Left knee swelling and bruising, some pain with movement and with deep breathing sharp pain, Bruising on R forearm, R hand pinky pain Reason Comments Left Knee Pain Care Teams (unrecognized sec tion and content) Receiving Operator Relationship Specialty Start Date End Date Cholo Soriano MD [address] [place] [address] PCP - General Family Practice 04/03/21 Darek, Akhil S [address] [address] Referring Cardiology 12/02/18 Chaparro Kothari MD [address] [place] [address] Primary Staff Physician Cardiology 02/08/19 Receiving Operator Relationship Specialty Start Date End Date Cholo Soriano MD [address] [place] [address] PCP - General Family Practice 04/03/21 Darek, Acra S [address] [address] Referring Cardiology 12/02/18 Chaparro Kothari MD [address] [place] [address] Primary Staff Physician Cardiology 02/08/19 Receiving Operator Relationship Specialty Start Date End Date Cholo Soriano MD [address] [place] [address] PCP - General Family Practice 04/03/21 Darek, Acra S [address] [address] Referring Cardiology 12/02/18 Chaparro Kothari MD [address] [place] [address] Primary Staff Physician Cardiology 02/08/19 Receiving Operator Relationship Specialty Start Date End Date Cholo Soriano MD [address] [place] [address] PCP - General Family Practice 04/03/21 Darek, Akhil S [address] [place] [address] Referring Cardiology 12/02/18 Chaparro Kothari MD [address] [place] [address] Primary Staff Physician Cardiology 02/08/19 Receiving Operator Relationship Specialty Start Date End Date Cholo Soriano MD [address] [place] [address] PCP - General Family Practice 04/03/21 Darek, Acra S [address] [place] [address] Referring Cardiology 12/02/18 Chaparro Kothari MD [address] [place] [address] Primary Staff Physician Cardiology 02/08/19 Receiving Operator Relationship Specialty Start Date End Date Cholo Soriano MD [address] [place] [address] PCP - General Family Practice 04/03/21 Darek, Acra S [address] [place] [address] Referring Cardiology 12/02/18 Chaparro Kothari MD [address] [place] [address] Primary Staff Physician Cardiology 02/08/19 Receiving Operator Relationship Specialty Start Date End Date Cholo Soriano MD [address] [place] [address] PCP - General Family Practice 04/03/21 Darek, Acra S [address] [place] [address] Referring Cardiology 12/02/18 Chaparro Kothari MD [address] [place] [address] Primary Staff Physician Cardiology 02/08/19 Receiving Operator Relationship Specialty Start Date End Date Cholo Soriano MD [address] [place] [address] PCP - General Family Practice 04/03/21 Darek, Acra S [address] [address] Referring Cardiology 12/02/18 Chaparro Kothari MD [address] [place] [address] Primary Staff Physician Cardiology 02/08/19 Receiving Operator Relationship Specialty Start Date End Date Cholo Soriano MD [address] [place] [address] PCP - General Family Practice 04/03/21 Darek, Akhil S [address] [address] Referring Cardiology 12/02/18 Chaparro Kothari MD [address] [place] [address] Primary Staff Physician Cardiology 02/08/19 Receiving Operator Relationship Specialty Start Date End Date Cholo Soriano MD [address] [place] [address] PCP - General Family Medicine 04/03/21 Darek, Akhil S [address] [address] Referring Cardiology 12/02/18 Chaparro Kothari MD [address] [facility] [place], [place] [id number] Primary Staff Physician Cardiology 02/08/19 Receiving Operator Relationship Specialty Start Date End Date Cholo Soriano MD [address] [place] [address] PCP - General Family Medicine 04/03/21 Darek, Akhil S [address] [address] Referring Cardiology 12/02/18 Chaparro Kothari MD [address] [place] [address] Primary Staff Physician Cardiology 02/08/19 Receiving Operator Relationship Specialty Start Date End Date Cholo Soriano MD [address] [place] [address] PCP - General Family Medicine 04/03/21 Darek, Akhil S [address] [address] Referring Cardiology 12/02/18 Chaparro Kothari MD [address] [place] [address] Primary Staff Physician Cardiology 02/08/19 Receiving Operator Relationship Specialty Start Date End Date Cholo Soriano MD [address] [place] [address] PCP - General Family Medicine 04/03/21 Darek, Akhil S [address] [place] [address] Referring Cardiology 12/02/18 Chaparro Kothari MD [address] [place], [place] [id number] Primary Staff Physician Cardiology 02/08/19 Receiving Operator Relationship Specialty Start Date End Date Cholo Soriano MD [address] [facility] [place] [address] PCP - General Family Medicine 04/03/21 Darek, Acra S [address] [place] [address] Referring Cardiology 12/02/18 Chaparro Kothari MD [address] [place] [address] Primary Staff Physician Cardiology 02/08/19 Receiving Operator Relationship Specialty Start Date End Date Cholo Soriano MD [address] [facility] [place] [address] PCP - General Family Medicine 04/03/21 Darek, Akhil S [address] [place] [address] Referring Cardiology 12/02/18 Chaparro Kothari MD [address] [place] [address] Primary Staff Physician Cardiology 02/08/19 Receiving Operator Relationship Specialty Start Date End Date Cholo Soriano MD [address] [facility] [place] [address] PCP - General Family Medicine 04/03/21 Darek, Akhil S [address] [facility] [place] [address] Referring Cardiology 12/02/18 Chaparro Kothari MD [address] [place] [address] Primary Staff Physician Cardiology 02/08/19 Receiving Operator Relationship Specialty Start Date End Date Cholo Soriano MD [address] [place] [address] PCP - General Family Medicine 04/03/21 Darek, Acra S [address] [place] [address] Referring Cardiology 12/02/18 Chaparro Kothari MD [address] [place] [address] Primary Staff Physician Cardiology 02/08/19 Receiving Operator Relationship Specialty Start Date End Date Cholo Soriano MD [address] [place] [address] PCP - General Family Medicine 04/03/21 Darek, Acra S [address] [address] Referring Cardiology 12/02/18 Chaparro Kothari MD [address] [place] [address] Primary Staff Physician Cardiology 02/08/19 Receiving Operator Relationship Specialty Start Date End Date Cholo Soriano MD [address] [place] [address] PCP - General Family Medicine 04/03/21 Darek, Akhil S [address] [place] [address] Referring Cardiology 12/02/18 Chaparro Kothari MD [address] [place] [address] Primary Staff Physician Cardiology 02/08/19 Receiving Operator Relationship Specialty Start Date End Date Cholo Soriano MD [address] [place] [place] [address] PCP - General Family Medicine 04/03/21 Ye Muñozril S [address] Angel [address] [place] [address] Referring Cardiology 12/02/18 Chaparro Kothari MD [address] [place] [address] Primary Staff Physician Cardiology 02/08/19 Receiving Operator Relationship Specialty Start Date End Date Cholo Soriano MD [address] [place] [address] PCP - General Family Medicine 04/03/21 Ye Muñozril S [address] Angel [address] [address] Referring Cardiology 12/02/18 Chaparro Kothari MD [address] [place] [address] Primary Staff Physician Cardiology 02/08/19 Receiving Operator Relationship Specialty Start Date End Date Cholo Soriano MD [address] [place] [address] PCP - General Family Medicine 04/03/21 Akhil Muñoz MD [address] [address] Referring Cardiology 12/02/18 Chaparro Kothari MD [address] [facility] [place] [address] Primary Staff Physician Cardiology 02/08/19 Receiving Operator Relationship Specialty Start Date End Date Cholo Soriano MD [address] [place] [address] PCP - General Family Medicine 04/03/21 Akhil Muñoz MD [address] [address] Referring Cardiology 12/02/18 Chaparro Kothari MD [address] [place], [place] [address] Primary Staff Physician Cardiology 02/08/19 Receiving Operator Relationship Specialty Start Date End Date Cholo Soriano MD [address] [place] [address] PCP - General Family Medicine 04/03/21 Akhil Muñoz MD [address] [address] Referring Cardiology 12/02/18 Chaparro Kothari MD [address] [facility] [place] [address] Primary Staff Physician Cardiology 02/08/19 Receiving Operator Relationship Specialty Start Date End Date Cholo Soriano MD [address] [place] [address] PCP - General Family Medicine 04/03/21 Akhil Muñoz MD [address] [address] Referring Cardiology 12/02/18 Chaparro Kothari MD [address] [facility] [place], [place] [address] Primary Staff Physician Cardiology 02/08/19 Receiving Operator Relationship Specialty Start Date End Date Cholo Soriano MD [address] [place] [address] PCP - General Family Medicine 04/03/21 Akhil Muñoz MD [address] [address] Referring Cardiology 12/02/18 Chaparro Kothari MD [address] [place] [address] Primary Staff Physician Cardiology 02/08/19 Receiving Operator Relationship Specialty Start Date End Date Cholo Soriano MD [address] [place] [address] PCP - General Family Medicine 04/03/21 Akhil Muñoz MD [address] [address] Referring Cardiology 12/02/18 Chaparro Kothari MD [address] [place] [address] Primary Staff Physician Cardiology 02/08/19 Receiving Operator Relationship Specialty Start Date End Date Cholo Soriano MD [address] [place] [address] PCP - General Family Medicine 04/03/21 Akhil Muñoz MD [address]ARY[address] Angel [address] [address] Referring Cardiology 12/02/18 Chaparro Kothari MD [address] [place], [place] [address] Primary Staff Physician Cardiology 02/08/19 Receiving Operator Relationship Specialty Start Date End Date Cholo Soriano MD [address] [place] [address] PCP - General Family Medicine 04/03/21 Akhil Muñoz MD [address] [place] [address] Referring Cardiology 12/02/18 Chaparro Kothari MD [address] [place] [address] Primary Staff Physician Cardiology 02/08/19 Receiving Operator Relationship Specialty Start Date End Date Cholo Soriano MD [address] [place] [address] PCP - General Family Medicine 04/03/21 Akhil Muñoz MD [address] [place] [address] Referring Cardiology 12/02/18 Chaparro Kothari MD [address] [place], [place] [address]1495 Primary Staff Physician Cardiology 02/08/19 Receiving Operator Relationship Specialty Start Date End Date Cholo Soriano MD [address] [place] [address] PCP - General Family Medicine 04/03/21 Akhil Muñoz MD [address] [address] Referring Cardiology 12/02/18 Chaparro Kothari MD [address] [place] [address] Primary Staff Physician Cardiology 02/08/19 Team Status: Active Member Role Status Dates Dr. Naveen Ashley III, MD Family Provider Active Dr. Cholo Soriano MD Primary Care Provider Active Team Status: Inactive Member Role Status Dates Dr. Cholo Soriano MD Primary Care Provider, Referri ng Provider Active Dr. Akhil Muñoz MD Attending Provider Active Team Status: Inactive Member Role Status Dates Dr. Cholo Soriano MD Primary Care Provider Active Dr. Lucho Ashley MD Attending Provider, Referring Provider Active Team Status: Inactive Member Role Status Dates Dr. Cholo Soriano MD Primary Care Provider Active Dr. Amadou Carcamo MD Emergency Provider Active Receiving Operator Relationship Specialty Start Date End Date Cholo Soriano MD [address] [place] [address] PCP - General Family Medicine 04/03/21 Akhil Muñoz MD [address] [address] Referring Cardiology 12/02/18 Chaparro Kothari MD [address] [place] [id number] Primary Staff Physician Cardiology 02/08/19 Team Status: Inactive Member Role Status Dates Dr. Cholo Soriano MD Primary Care Provider Active Dr. Amadou Carcamo MD Attending Provider, Emergency Provider Active Team Status: Inactive Member Role Status Dates Dr. Cholo Soriano MD Primary Care Provider Active Dr. Eber Alicia MD Emergency Provider Active Receiving Operator Relationship Specialty Start Date End Date Cholo Soriano MD [address] [place] [address] PCP - General Family Medicine 04/03/21 Akhil Muñoz MD [address] [address] Referring Cardiology 12/02/18 Chaparro Kothari MD [address] [place] [address] Primary Staff Physician Cardiology 02/08/19 Receiving Operator Relationship Specialty Start Date End Date Cholo Soriano MD [address] [place] [address] PCP - General Family Medicine 04/03/21 Akhil Muñoz MD [address] [address] Referring Cardiology 12/02/18 Chaparro Kothari MD [address] [place] [address] Primary Staff Physician Cardiology 02/08/19 Receiving Operator Relationship Specialty Start Date End Date Cholo Soriano MD [address] [place] [address] PCP - General Family Medicine 04/03/21 Akhil Muñoz MD [address] [address] Referring Cardiology 12/02/18 Chaparro Kothari MD [address] [place] [address] Primary Staff Physician Cardiology 02/08/19 Receiving Operator Relationship Specialty Start Date End Date Cholo Soriano MD [address] [place] [address] PCP - General Family Medicine 04/03/21 Akhil Muñoz MD [address] [address] Referring Cardiology 12/02/18 Chaparro Kothari MD [address] [place] [address] Primary Staff Physician Cardiology 02/08/19 Receiving Operator Relationship Specialty Start Date End Date Cholo Soriano MD [address] [place] [address] PCP - General Family Medicine 04/03/21 Akhil Muñoz MD [address] [address] Referring Cardiology 12/02/18 Chaparro Kothrai MD [address] [place], [place] [address] Primary Staff Physician Cardiology 02/08/19 Receiving Operator Relationship Specialty Start Date End Date Cholo Soriano MD [address] [place] [address] PCP - General Family Medicine 04/03/21 Akhil Muñoz MD [address] [address] Referring Cardiology 12/02/18 Chaparro Kothari MD [address] [place] [address] Primary Staff Physician Cardiology 02/08/19 Receiving Operator Relationship Specialty Start Date End Date Cholo Soriano MD [address] [place] [address] PCP - General Family Medicine 04/03/21 Akhil Muñoz MD [address] [address] Referring Cardiology 12/02/18 Chaparro Kothari MD [address] [place], [place] [address] Primary Staff Physician Cardiology 02/08/19 Receiving Operator Relationship Specialty Start Date End Date Cholo Soriano MD [address] [place] [address] PCP - General Family Medicine 04/03/21 Akhil Muñoz MD [address] [address] Referring Cardiology 12/02/18 Chaparro Kothari MD [address] [facility] [address] Primary Staff Physician Cardiology 02/08/19 Receiving Operator Relationship Specialty Start Date End Date Cholo Soriano MD [address] [place] [address] PCP - General Family Medicine 04/03/21 Akhil Muñoz MD [address] Angel [address] [address] Referring Cardiology 12/02/18 Chaparro Kothari MD [address] [place] [address] Primary Staff Physician Cardiology 02/08/19 Receiving Operator Relationship Specialty Start Date End Date Cholo Soriano MD [address] [place] [address] PCP - General Family Medicine 04/03/21 Akhil Muñoz MD [address] [address] Referring Cardiology 12/02/18 Chaparro Kothari MD [address] [facility] [place] [address] Primary Staff Physician Cardiology 02/08/19 Receiving Operator Relationship Specialty Start Date End Date Cholo Soriano MD [address] [place] [address] PCP - General Family Medicine 04/03/21 Akhil Muñoz MD 176 [facility] [address] [address] Referring Cardiology 12/02/18 Chaparro Kothari MD [address] [facility] [place] [address] Primary Staff Physician Cardiology 02/08/19 Receiving Operator Relationship Specialty Start Date End Date Cholo Soriano MD [address] [place] [address] PCP - General Family Medicine 04/03/21 Akhil Muñoz MD [address] [address] Referring Cardiology 12/02/18 Chaparro Kothari MD [address] [place] [address] Primary Staff Physician Cardiology 02/08/19 Receiving Operator Relationship Specialty Start Date End Date Cholo Soriano MD [address] [place] [address] PCP - General Family Medicine 04/03/21 Akhil Muñoz MD [address] [address] Referring Cardiology 12/02/18 Chaparro Kothari MD [address] [place], [place] 6[address]1695 Primary Staff Physician Cardiology 02/08/19 Receiving Operator Relationship Specialty Start Date End Date Cholo Soriano MD [address] [place] [address] PCP - General Family Medicine 04/03/21 Akhil Muñoz MD [address] Angel [address] [address] Referring Cardiology 12/02/18 Chaparro Kothari MD [address] [place], [place] [address]695 Primary Staff Physician Cardiology 02/08/19 Receiving Operator Relationship Specialty Start Date End Date Cholo Soriano MD [address] [place] [address] PCP - General Family Medicine 04/03/21 Akhil Muñoz MD [address] [address] Referring Cardiology 12/02/18 Chaparro Kothari MD [address] [place] [address] Primary Staff Physician Cardiology 02/08/19 Receiving Operator Relationship Specialty Start Date End Date Cholo Soriano MD [address] [place] [address] PCP - General Family Medicine 04/03/21 Akhil Muñoz MD [address] [address] Referring Cardiology 12/02/18 Chaparro Kothari MD [address] [place] [address] Primary Staff Physician Cardiology 02/08/19 Receiving Operator Relationship Specialty Start Date End Date Cholo Soriano MD [address] [place] [address] PCP - General Family Medicine 04/03/21 Akhil Muñoz MD [address] [address] Referring Cardiology 12/02/18 Chaparro Kothari MD [address] [place] [address] Primary Staff Physician Cardiology 02/08/19 Receiving Operator Relationship Specialty Start Date End Date Cholo Soriano MD [address] [place] [address] PCP - General Family Medicine 04/03/21 Akhil Muñoz MD [address] [address] Referring Cardiology 12/02/18 Chaparro Kothari MD [address] [place] [address] Primary Staff Physician Cardiology 02/08/19 Receiving Operator Relationship Specialty Start Date End Date Cholo Soriano MD [address] [place] [address] PCP - General Family Medicine 04/03/21 Akhil Muñoz MD [address] [address] Referring Cardiology 12/02/18 Chaparro Kothari MD [address] [place], [place] 3562695 Primary Staff Physician Cardiology 02/08/19 Receiving Operator Relationship Specialty Start Date End Date Cholo Soriano MD [address] [place] [address] PCP - General Family Medicine 04/03/21 Akhil Muñoz MD [address] [address] Referring Cardiology 12/02/18 Chaparro Kothari MD [address] [place] [address] Primary Staff Physician Cardiology 02/08/19 Receiving Operator Relationship Specialty Start Date End Date Cholo Soriano MD [address] [place] [address] PCP - General Family Medicine 04/03/21 Akhil Muñoz MD [address] [place] [address] Referring Cardiology 12/02/18 Chaparro Kothari MD [address] [facility] [place] [place] [address] Primary Staff Physician Cardiology 02/08/19 Receiving Operator Relationship Specialty Start Date End Date Cholo Soriano MD [address] [place] [address] PCP - General Family Medicine 04/03/21 Akhil Muñoz MD [address] [place] [address], [place] [address] Referring Cardiology 12/02/18 Chaparro Kothari MD [address] [place] [address] Primary Staff Physician Cardiology 02/08/19 Receiving Operator Relationship Specialty Start Date End Date Cholo Soriano MD [address] [facility] [place] [address] PCP - General Family Medicine 04/03/21 Akhil Muñoz MD [address] [place] [address] Referring Cardiology 12/02/18 Chaparro Kothari MD [address] [place] [address] Primary Staff Physician Cardiology 02/08/19 Receiving Operator Relationship Specialty Start Date End Date Cholo Soriano MD [address] [place] [address] PCP - General Family Medicine 04/03/21 Akhil Muñoz MD [address] [address] Referring Cardiology 12/02/18 Chaparro Kothari MD [address] [facility] [place] [address] Primary Staff Physician Cardiology 02/08/19 Receiving Operator Relationship Specialty Start Date End Date Cholo Soriano MD [address] [place] [address] PCP - General Family Medicine 04/03/21 Akhil Muñoz MD [address] [address] Referring Cardiology 12/02/18 Chaparro Kothari MD [address] [place], [place] 8[address]48[address] Primary Staff Physician Cardiology 02/08/19 Receiving Operator Relationship Specialty Start Date End Date Cholo Soriano MD [address] [place] [address] PCP - General Family Medicine 04/03/21 Akhil Muñoz MD [address] [address] Referring Cardiology 12/02/18 Chaparro Kothari MD [address] [place] [address] Primary Staff Physician Cardiology 02/08/19 Receiving Operator Relationship Specialty Start Date End Date Cholo Soriano MD [address] [place] [address] PCP - General Family Medicine 04/03/21 Akhil Muñoz MD 176 [facility] [address] [address] Referring Cardiology 12/02/18 Chapraro Kothari MD [address] [place] [address] Primary Staff Physician Cardiology 02/08/19 Fina Keller APRN.CNP [address] [place] [address] [facility] 10/29/24 Hilda Snyder PA-C [address] [place] [address] [facility] 10/29/24 Receiving Operator Relationship Specialty Start Date End Date Cholo Soriano MD [address] [place] [address] PCP - General Family Medicine 04/03/21 Akhil Muñoz MD [address] Angel [address] [address] Referring Cardiology 12/02/18 Chaparro Kothari MD [address] [facility] [place] [address] Primary Staff Physician Cardiology 02/08/19 Fina Keller APRN.DEBURRER MACHINE [address] [place] [address] [facility] 10/29/24 Hilda Snyder PA-C [address] [place] [address] [facility] 10/29/24 Receiving Operator Relationship Specialty Start Date End Date Cholo Soriano MD [address] [place] [address] PCP - General Family Medicine 04/03/21 Akhil Muñoz MD [address] [address] Referring Cardiology 12/02/18 Chaparro Kothari MD [address] [place] [address] Primary Staff Physician Cardiology 02/08/19 Fina Keller APRN.DEBURRER MACHINE [address] [place] [address] [facility] 10/29/24 Hilda Snyder PA-C [address] [place] [address] [facility] 10/29/24 Receiving Operator Relationship Specialty Start Date End Date Cholo Soriano MD [address] [place] [address] PCP - General Family Medicine 04/03/21 Akhil Muñoz MD [address] [address] Referring Cardiology 12/02/18 Chaparro Kothari MD [address] [place] [address] Primary Staff Physician Cardiology 02/08/19 Fina Keller APRN.DEBURRER MACHINE [address] [place] [id number] [facility] 10/29/24 Hilda Snyder PA-C [address] [place] [address] [facility] 10/29/24 Receiving Operator Relationship Specialty Start Date End Date Cholo Soriano MD [address] [place] [address] PCP - General Family Medicine 04/03/21 Akhil Muñoz MD [address] [address] Referring Cardiology 12/02/18 Chaparro Kothari MD [address] [place], [place] [address] Primary Staff Physician Cardiology 02/08/19 Fina Keller APRN.DEBURRER MACHINE [address] [place], [place] 550[address] [facility] 10/29/24 Hilda Snyder PA-C [address] [place] [address] [facility] 10/29/24 Receiving Operator Relationship Specialty Start Date End Date Cholo Soriano MD [address] [place] [address] PCP - General Family Medicine 04/03/21 Akhil Muñoz MD [address] [address] Referring Cardiology 12/02/18 Chaparro Kothari MD [address] [place] [address] Primary Staff Physician Cardiology 02/08/19 Fina Keller APRN.DEBURRER MACHINE [address] [place] [phone] [facility] 10/29/24 Hilda Snyder PA-C [address] [place], [place] [address]129[address] [facility] 10/29/24 Receiving Operator Relationship Specialty Start Date End Date Cholo Soriano MD [address] [place], [place] [address]48[address] PCP - General Family Medicine 04/03/21 Akhil Muñoz MD [address] [address] Referring Cardiology 12/02/18 Chaparro Kothari MD [address] [place] [address] Primary Staff Physician Cardiology 02/08/19 Fina Keller APRN.DEBURRER MACHINE [address] [place] [address] [facility] 10/29/24 Hilda Snyder PA-C [address] [place] [address] [facility] 10/29/[facility] Receiving Operator Relationship Specialty Start Date End Date Cholo Soriano MD [address] [place] [address] PCP - General Family Medicine 04/03/21 Akhil Muñoz MD [address] [address] Referring Cardiology 12/02/18 Chaparro Kothari MD [address] [place] [address] Primary Staff Physician Cardiology 02/08/19 Fina Keller APRN.DEBURRER MACHINE [address] [place] [address] [facility] 10/29/24 Hilda Snyder PA-C [address] [place] [address] [facility] 10/29/24 Receiving Operator Relationship Specialty Start Date End Date Cholo Soriano MD [address] [place] [address] PCP - General Family Medicine 04/03/21 Akhil Muñoz MD [address] [address] Referring Cardiology 12/02/18 Chaparro Kothari MD [address] [place], [place] [address]58[address] Primary Staff Physician Cardiology 02/08/19 Fina Keller APRN.DEBURRER MACHINE [address] [place] [address] [facility] 10/29/24 Hilda Snyder PA-C [address] [place] [address] [facility] 10/29/24 Receiving Operator Relationship Specialty Start Date End Date Cholo Soriano MD [address] [place] [address] PCP - General Family Medicine 04/03/21 Akhil Muñoz MD [address] [address] Referring Cardiology 12/02/18 Chaparro Kothari MD [address] [place] [address] Primary Staff Physician Cardiology 02/08/19 Fina Keller APRN.DEBURRER MACHINE [address] [place], [place] [id number] [facility] 10/29/24 Hilda Snyder PA-C [address] [facility], [place] 45[address] [facility] 10/29/24 Receiving Operator Relationship Specialty Start Date End Date Cholo Soriano MD [address] [facility], [place] [address]- PCP - General Family Medicine 04/03/21 Akhil Muñzo MD [address] [address] Referring Cardiology 12/02/18 Chaparro Kothari MD [address] [place] [address] Primary Staff Physician Cardiology 02/08/19 Fina Keller APRN.CNP [address] [place] [address] [facility] 10/29/24 Hilda Snyder PA-C [address] [place] [address] [facility] 10/29/24 Receiving Operator Relationship Specialty Start Date End Date Cholo Soriano MD [address] [place] [address] PCP - General Family Medicine 04/03/21 Akhil Muñoz MD [address] [address] Referring Cardiology 12/02/18 Chaparro Kothari MD [address] [place] [address] Primary Staff Physician Cardiology 02/08/19 Fina Keller APRN.DEBURRER MACHINE [address] [place] [id number] [facility] 10/29/24 Hilda Snyder PA-C [address] [place] [address] [facility] 10/29/24 Receiving Operator Relationship Specialty Start Date End Date Cholo Soriano MD [address] [place] [address] PCP - General Family Medicine 04/03/21 02/26/25 Cholo Soriano MD [address] [place] [address] PCP - General Family Medicine 02/27/25 Akhil Muñoz MD [address] [place] [id number] Referring Cardiology 12/02/18 Chaparro Kothari MD [address] [place] [address] Primary Staff Physician Cardiology 02/08/19 Fina Keller APRN.DEBURRER MACHINE [address] [place] [address] [phone] [facility] 10/29/24 Hilda Snyder PA-C [address] [place] [address] [facility] 10/29/24 Receiving Operator Relationship Specialty Start Date End Date Cholo Soriano MD [address] [place] [address] PCP - General Family Medicine 02/27/25 Akhil Muñoz MD [address] [address] Referring Cardiology 12/02/18 Chaparro Kothari MD [address] [place] [address] Primary Staff Physician Cardiology 02/08/19 Fina Keller APRN.DEBURRER MACHINE [address] [place] [address] [facility] 10/29/24 Hilda Snyder PA-C [address] [place] [address] [facility] 10/29/24 Receiving Operator Relationship Specialty Start Date End Date Cholo Soriano MD [address] [place] [address] PCP - General Family Medicine 02/27/25 Akhil Muñoz MD [address] [address] Referring Cardiology 12/02/18 Chaparro Kothari MD [address] [place], [place] [phone] Primary Staff Physician Cardiology 02/08/19 Fina Keller APRN.DEBURRER MACHINE [address] [place] [address] [facility] 10/29/24 Hilda Snyder PA-C [address] [place], [place] [phone] [facility] 10/29/24 Team Status: Active Member Role Status Dates Dr. Cholo Soriano MD Primary Care Provider Active Team Status: Inactive Member Role Status Dates Dr. Cholo Soriano MD Primary Care Provider Active Start: April 10, 2025 End: April 10, 2025 Dr. Kevin Taylor DO Emergency Provider Active Start: April 10, 2025 End: April 10, 2025 Receiving Operator Relationship Specialty Start Date End Date Cholo Soriano MD [address] [place], [place] [id number] PCP - General Family Medicine 02/27/25 Akhil Muñoz [place] [address] [place] [address] Referring Cardiology 12/02/18 Chaparro Kothari MD [address] [place] [address] Primary Staff Physician Cardiology 02/08/19 Hilda Snyder PA-C [address] [place] [address] [facility] 10/29/24 Receiving Operator Relationship Specialty Start Date End Date Cholo Soriano MD [address] [place], [place] [id number] PCP - General Family Medicine 02/27/25 Akhil Muñoz MD [address] Jose Angel [address] [address] Referring Cardiology 12/02/18 Chaparro Kothari MD [address] [place] [address] Primary Staff Physician Cardiology 02/08/19 Hilda Snyder PA-C [address] [place] [address] [facility] 10/29/24 Receiving Operator Relationship Specialty Start Date End Date Cholo Soriano MD [address] [place] [address] PCP - General Family Medicine 02/27/25 Akhil Muñoz MD [address] [place] [address] Referring Cardiology 12/02/18 Chaparro Kothari MD [address] [place] [address] Primary Staff Physician Cardiology 02/08/19 Fina Keller APRN.CNP [address] [place] [address] [phone] [facility] 04/24/25 Hilda Snyder PA-C [address] [place] [address] [facility] 04/24/25 Receiving Operator Relationship Specialty Start Date End Date Cholo Soriano MD [address] [place] [address] PCP - General Family Medicine 02/27/25 Akhil Muñoz MD [address] [address] Referring Cardiology 12/02/18 Chaparro Kothari MD [address] [place] [address] Primary Staff Physician Cardiology 02/08/19 Fina Keller, MIKEL.DEBURRER MACHINE [address] [place] [address] [facility] 04/24/25 Hilda Snyder PA-C [address] [place] [address] [facility] 04/24/25 Receiving Operator Relationship Specialty Start Date End Date Cholo Soriano MD [address] [place] [address] PCP - General Family Medicine 02/27/25 Akhil Muñoz MD [address] Jose Angel [address] [address] Referring Cardiology 12/02/18 Chaparro Kothari MD [address] [place] [address] Primary Staff Physician Cardiology 02/08/19 Fina Keller APRN.DEBURRER MACHINE [address] [place] [address] [phone] [facility] Family Medicine 04/24/25 Hilda Snyder PA-C [address] [place] [address] [phone] [facility] 04/24/25 Receiving Operator Relationship Specialty Start Date End Date Cholo Soriano MD [address] [place] [address] PCP - General Family Medicine 02/27/25 Akhil Muñoz MD [address] Angel [address] [address] Referring Cardiology 12/02/18 Chaparro Kothari MD [address] [place] [address] Primary Staff Physician Cardiology 02/08/19 Fina Keller, MIKEL.DEBURRER MACHINE [address] [place] [address] [facility] 04/24/25 Hilda Snyder PA-C [address] [place] [address] [facility] 04/24/25 Receiving Operator Relationship Specialty Start Date End Date Cholo Soriano MD [address] [place] [address] PCP - General Family Medicine 02/27/25 Akhil Muñoz MD [address] [address] Referring Cardiology 12/02/18 Chaparro Kothari MD [address] [place], [place] [phone] Primary Staff Physician Cardiology 02/08/19 Fina Keller APRN.DEBURRER MACHINE [address] [place] [address] [facility] 04/24/25 Hilda Snyder PA-C [address] [place] [address] [phone] [facility] 04/24/25 Receiving Operator Relationship Specialty Start Date End Date Cholo Soriano MD [address] [place] [address] PCP - General Family Medicine 02/27/25 Akhil Muñoz MD [facility] [address] [address] Referring Cardiology 12/02/18 [place] [address] [place], [place] [address] [phone] Primary Staff Physician Cardiology 02/08/19 Fina Keller APRN.DEBURRER MACHINE [address] [place] [phone] [facility] 04/24/25 Hilda Snyder PA-C [address] [place] [address] [phone] [facility] 04/24/25 Team Status: Active Member Role/Relationship Status Dates Dr. Cholo Soriano MD Primary Care Provider Active Team Status: Inactive Member Role/Relationship Status Dates Dr. Cholo Soriano MD Primary Care Provider Active Start: April 10, 2025 End: April 10, 2025 Dr. Kevin Taylor DO Attending Provider Active Start: April 10, 2025 End: April 10, 2025 Dr. Kevin Taylor , Emergency Provider Active Start: April 10, 2025 End: April 10, 2025 Team Status: Inactive Member Role/Relationship Status Dates Dr. Cholo Soriano MD Primary Care Provider Active Start: May 18, 2025 End: May 18, 2025 Dr. Cholo Soriano MD Attending Provider Active Start: May 18, 2025 End: May 18, 2025 Dr. Cholo Soriano MD Referring Provider Active Start: May 18, 2025 End: May 18, 2025 Receiving Operator Relationship Specialty Start Date End Date Cholo Soriano MD [address] [place] [address] PCP - General Family Medicine 02/27/25 Akhil Muñoz MD [address] [place] [address] [phone] Referring Cardiology 12/02/18 Chaparro Kothari MD [address] [place] [address] Primary Staff Physician Cardiology 02/08/19 Fina Keller APRN.DEBURRER MACHINE [address] [place] [address] [phone] [facility] 04/24/25 Hilda Snyder PA-C [address] [place] [address] [phone] [facility] 04/24/25 Receiving Operator Relationship Specialty Start Date End Date Cholo Soriano MD [address] [place], [place] [phone] PCP - General Family Medicine 02/27/25 Akhil Muñoz MD [address] [phone] Referring Cardiology 12/02/18 Chaparro Kothari MD [address] [place] [address] Primary Staff Physician Cardiology 02/08/19 Fina Keller APRN.DEBURRER MACHINE [address] [place] [address] [phone] [facility] 04/24/25 Hilda Snyder PA-C [address] [place] [address] [facility] 04/24/25 Receiving Operator Relationship Specialty Start Date End Date Cholo Soriano MD [address] [place] [address] PCP - General Family Medicine 02/27/25 Akhil Muñoz MD [address] [place] [address] 494691 Referring Cardiology 12/02/18 Chaparro Kothari MD [address] [place] [address] Primary Staff Physician Cardiology 02/08/19 Fina Keller APRN.DEBURRER MACHINE [address] [place] [address] [facility] 04/24/25 Hilda Snyder PA-C [facility] [place] [address] [facility] 04/24/25 Receiving Operator Relationship Specialty Start Date End Date Cholo Soriano MD [address] [place] [address] PCP - General Family Medicine 02/27/25 Akhil Muñoz MD [address] [address] Referring Cardiology 12/02/18 Chaparro Kothari MD [address] [place] [address] Primary Staff Physician Cardiology 02/08/19 Fina Keller APRN.DEBURRER MACHINE [address] [place] [address] [facility] 04/24/25 Hilda Snyder PA-C [address] [place] [address] [facility] 04/24/25 Receiving Operator Relationship Specialty Start Date End Date Cholo Soriano MD [address] [place] [address] PCP - General Family Medicine 02/27/25 Akhil Muñoz MD [address] [address] Referring Cardiology 12/02/18 Chaparro Kothari MD [address] [place] [address] Primary Staff Physician Cardiology 02/08/19 Fina Keller APRN.DEBURRER MACHINE [address] [place] [address] [facility] 04/24/25 Hilda Snyder PA-C [address] [place], [place] 405781 [facility] 04/24/25 Receiving Operator Relationship Specialty Start Date End Date Cholo Soriano MD [address] [place] [address] PCP - General Family Medicine 02/27/25 Akhil Muñoz MD [address] [address] Referring Cardiology 12/02/18 Chaparro Kothari MD [address] [place] [address] Primary Staff Physician Cardiology 02/08/19 Fina Keller APRN.DEBURRER MACHINE [address] [place] [address] [phone] [facility] 04/24/25 Hilda Snyder PA-C [facility] [place] [address] [facility] 04/24/25 Receiving Operator Relationship Specialty Start Date End Date Cholo Soriano MD [address] [place] [address] PCP - General Family Medicine 02/27/25 Akhil Muñoz MD [address] [address] Referring Cardiology 12/02/18 Chaparro Kothari MD [address] [place], [place] [phone] Primary Staff Physician Cardiology 02/08/19 Fina Keller, MIKEL.DEBURRER MACHINE [address] [place], [place] [phone] [facility] Family [facility] 04/24/25 Hilda Snyder PA-C [facility] [place] [address] [facility] 04/24/25 Receiving Operator Relationship Specialty Start Date End Date Cholo Soriano MD [address] [place] [address] PCP - General Family Medicine 02/27/25 Akhil Muñoz MD [facility] [address] [address] Referring Cardiology 12/02/18 Chaparro Kothari MD [address] [place] [address] Primary Staff Physician Cardiology 02/08/19 Fina Keller, MIKEL.DEBURRER MACHINE [address] [place] [address] [facility] Family [facility] 04/24/25 Hilda Snyder PA-C [address] [place] [address] [facility] 04/24/25 Receiving Operator Relationship Specialty Start Date End Date Cholo Soriano MD [address] [place] [address] PCP - General Family Medicine 02/27/25 Akhil Muñoz MD [address] [address] Referring Cardiology 12/02/18 Chaparro Kothari MD [address] [place], [place] [phone] Primary Staff Physician Cardiology 02/08/19 Fina Keller APRN.DEBURRER MACHINE [address] [place] [address] [facility] 04/24/25 Hilda Snyder PA-C [address] [place] [address] [facility] 04/24/25 Receiving Operator Relationship Specialty Start Date End Date Cholo Soriano MD [address] [place] [address] PCP - General Family Medicine 02/27/25 Akhil Muñoz MD [address] [address] Referring Cardiology 12/02/18 Chaparro Kothari MD [address] [place] [address] Primary Staff Physician Cardiology 02/08/19 Fina Keller APRN.DEBURRER MACHINE [address] [place] [address] [phone] [facility] Family [facility] 04/24/25 Hilda Snyder PA-C [address] [place] [address] [facility] 04/24/25 Goals (unrecognized section and content) Goals may be documented in a n alternate sectionGoals may be documented in an alternate sectionGoals may be documented in an alternate sectionGoals may be documented in an alternate sectionGoals may be documented in an alternate sectionGoals may be documented in an alternate sectionGoals may be documented in an alternate sectionGoals may be documented in an alternate section INFORMATION SOURCE (unrecogn ized section and content) DATE CREATED AUTHOR 09/14/2024 [facility] DATE CREATED AUTHOR AUTHOR'S ORGANIZ ATION 05/31/2025 [facility] DATE CREATED AUTHOR AUTHOR'S ORGANIZ ATION 08/03/2025 [facility] DATE CREATED AUTHOR AUTHOR'S ORGANIZ ATION 09/16/2025 [facility] FOR RECORDS PERTAINING TO PATIENTS [...] BE BASED ON THE PRIMARY CLINICAL RECORDS. [email or web address] provides no warranty or guarantee of the accuracy or completeness of information in this document.
[2025-11-16 02:49] VITALS: BP 123/69; PULSE 52; RESP 18; O2SAT 97
[2025-11-16 03:20] LABS: Hematocrit 35.5 % (37-47); Hemoglobin 11.1 g/dL (12.0-15.0); Immature Granulocytes Count 0.030 X10^3/uL (0.0-0.0); Mean Corp Hgb Conc 31.3 g/dL (32-36); Mean Corpuscular Volume 97.0 fL (81-99); Mean Platelet Vol. 10.5 fl (6.2-12.0); NRBC Flagged by Analyzer 0 % (0-5); Platelet Count 220 K/mm3 (150-450); RBC Distribution Width CV 14.1 % (11.6-14.6); RBC Distribution Width SD 49.5 fl (35.1-43.9); Red Blood Count 3.66 M/mm3 (4.2-5.4); White Blood Count 8.8 K/mm3 (4.4-11.0)
[2025-11-16 03:21] VITALS: BP 106/58; PULSE 55
[2025-11-16] MEDS: Nitroglycerin SL (ED/IMG/CATH) 0.4 MG TABLET SL (03:21)
[2025-11-16 03:53] LABS: D-Dimer Quantitative (DVT/PE) 0.51 FEU/ug/m (0.27-0.49)
[2025-11-16] MEDS: 0.9% Normal Saline (1000mL) 1,000 ML 1000 ML IV (03:54)
--- NOTE | 2025-11-16 04:03 | RAD_ITS ---
PROCEDURE: CHEST 1 VIEW (PORTABLE) 11/16/2025 REASON FOR EXAM: CHEST PAIN TECHNIQUE: Frontal view of the chest. COMPARISON: 11/17/2022 FINDINGS: Hardware: EKG leads overlie the chest Heart: The heart size is normal. Lungs: The lungs are clear. Bones: Degenerative changes are identified within the thoracic spine. RAD/Chest 1 View (Portable) IMPRESSION: No acute pulmonary process, stable elevation of the right hemidiaphragm Reading Location: [id number]
[2025-11-16 04:07] LABS: Troponin T High Sensitivity 19 ng/L (<=14)
[2025-11-16 04:51] LABS: Anion Gap 15 (7-18); BUN 25 mg/dL (4-19); BUN/Creat Ratio 27.4 RATIO (10-20); Calcium,Total 9.4 mg/dL (7.6-11.0); Carbon Dioxide 20.7 mmol/L (20.0-29.0); Chloride 102 mmol/L (96-106); Estimated Creatinine Clearance 69.11 ml/min (50-250); Glucose 146 mg/dL (70-99); Potassium 3.5 mmol/L (3.5-5.1)
[2025-11-16 06:01] VITALS: BP 116/100; PULSE 58; RESP 18; O2SAT 98
[2025-11-16 06:36] LABS: Troponin T High Sens 2 HR 17 ng/L (<=14)
[2025-11-16 06:56] VITALS: BP 135/68; PULSE 55; RESP 17; TEMP 36.7; O2SAT 97
== END 2025-11-16 06:57 | disposition home or self-care (01) ==
PROVIDERS: Emergency Provider Emergency Medicine; PCP Family Medicine; Visit Provider Emergency Medicine
DX: M25.512 Pain in left shoulder (principal); I48.0 Paroxysmal atrial fibrillation; I10 Essential (primary) hypertension; G47.33 Obstructive sleep apnea (adult) (pediatric); Z79.899 Other long term (current) drug therapy; Z79.01 Long term (current) use of anticoagulants; Z86.16 Personal history of COVID-19
CPT/HCPCS: 71045; 80048; 84484; 85025; 85379; 93005; 96361; 96372; 96374; 99285; A4216